=== PATIENT | female | born 1955 | race Caucasian/White ===

== ENCOUNTER 2017-11-01 14:17 | Emergency (ER) | payer OTHER, SELFPAY ==
--- NOTE | 2017-11-01 14:17 | DT_ITS ---
This patient was seen during an EMR downtime October 28, 2017 - November 04, 2017. This patient may have a combination of paper and electronic documentation or all paper documentation. All documentation is viewable within the e-chart portion of [facility] for each patient visit.
== END 2017-11-01 14:26 | disposition home or self-care (01) ==
LOC: ED 18:19
PROVIDERS: Emergency Provider Emergency Medicine; Family Provider Internal Medicine; PCP Internal Medicine
DX: S91.331A Puncture wound without foreign body, right foot, initial encounter (principal); W22.8XXA Striking against or struck by other objects, initial encounter; Y93.9 Activity, unspecified; Y92.9 Unspecified place or not applicable; E11.9 Type 2 diabetes mellitus without complications; E78.00 Pure hypercholesterolemia, unspecified
CPT/HCPCS: 90471; 90715; 99284

== ENCOUNTER 2020-07-07 08:16 | Day surgery (SDC) | payer MEDICARE, SELFPAY ==
--- NOTE | 2020-07-01 11:17 | EKG12_ITS ---
Test Reason : PREOP Blood Pressure : / mmHG Vent. Rate : 070 BPM Atrial Rate : 070 BPM P-R Int : 186 ms QRS Dur : 084 ms QT Int : 394 ms P-R-T Axes : 049 025 052 degrees QTc Int : 425 ms Normal sinus rhythm Normal ECG Confirmed by JIM JIMENEZ, RAMANDEEP ([id number]), sound editor MAURICIO SANTIAGO ([id number]) on 07/04/2020 1:22:33 PM Referred By: Natalia Sarabia Confirmed By:RAMANDEEP FERNANDEZ MD
[2020-07-01 12:42] LABS: Hematocrit 37.7 % (37-47); Hemoglobin 12.7 g/dL (12.0-15.0); Mean Corp Hgb Conc 33.7 g/dL (32-36); Mean Corpuscular Hgb 31.2 pg (27.0-32.0); Mean Corpuscular Volume 92.6 fL (81-99); Platelet Count 208 K/mm3 (150-450); RBC Distribution Width CV 12.4 % (11.6-14.6); RBC Distribution Width SD 42.2 fl (35.1-43.9); Red Blood Count 4.07 M/mm3 (4.2-5.4); White Blood Count 6.2 K/mm3 (4.4-11.0)
[2020-07-01 13:15] LABS: Anion Gap 7 (5-15); BUN 16 mg/dL (7-18); BUN/Creat Ratio 20.6 RATIO (10-20); Calcium,Total 9.9 mg/dL (8.5-10.1); Chloride 108 mmol/L (98-107); Creatinine, Serum 0.78 mg/dL (0.55-1.02); EST Glomerular Filtration Rate 79 mL/min (>60); Est Glom Filt Rate - Afr Amer 95 mL/min (>60); Glucose 140 mg/dL (74-106); Magnesium 1.9 mg/dL (1.6-2.6); Potassium 3.7 mmol/L (3.5-5.1); Sodium Level 141 mmol/L (136-145)
[2020-07-01 15:06] LABS: Hemoglobin A1c 8.2 % (3.8-5.6)
--- NOTE | 2020-07-04 17:36 | PCM.HP.BLA ---
History and Physical Date of Admission: 07/07/20 Expand AllCollapse All Expand widget buttonCollapse widget button Hide copied text Hover for detailscustomization button Pre-Op History and Physical HPI: The patient is a 64 year old female presenting for discussion regarding persistent cervical dysplasia. Patient would like to proceed with definitive treatment. She is scheduled for LAVH and BSO, cyst, for Persistent cervical dysplasia on 07/07/20. Procedure discussed along with risks, benefits and complications. Other alternatives discussed for management. Consent form signed? Yes. PAST MEDICAL HISTORYExpand by Default PAST MEDICAL HISTORY Diagnosis Date ? Anxiety ? Anxiety and depression ? Back pain ? CVA (cerebral vascular accident) (HCC) 2009 ? Diabetes mellitus type II 08/03/2011 ? Fracture of metatarsal right foot ? Hyperlipidemia ? Obstructive sleep apnea CPAP machine ? 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 Unspecified essential hypertension PAST SURGICAL HISTORY PAST SURGICAL HISTORY Procedure Laterality Date ? COLONOSCOP W/ OR W/O BRSH SPEC 12/26/2005 Colonoscopy ? CORRECT BUNION,SIMPLE Bilateral 88 Bunion ? PAST SURGICAL HISTORY OF 02/27/08 repair 1 ruptured disc, lumbar ? PAST SURGICAL HISTORY OF 77 Varicose veins ? PAST SURGICAL HISTORY OF 2011 Aortic Valve mass resection ? 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 REMOVAL OF TONSILS,<12 Y/O Tonsillectomy ? REPAIR METATARSAL FRACTURE 01/20/2016 ? TREAT ECTOPIC PREG,NON REMVAL Ectopic x2 CURRENT MEDICATIONS Current Outpatient Medications Medication Sig Dispense Refill ? buPROPion (WELLBUTRIN) 75 mg tablet Take 1 tablet by mouth twice daily. 180 tablet 1 ? losartan-hydroCHLOROthiazide (HYZAAR) 100-25 mg per tablet Take 1 tablet by mouth once daily. 30 tablet 5 ? dulaglutide (TRULICITY) 1.5 mg/0.5 mL pen injector Inject 1.5 mg subcutaneously one time a week. 4 Each 5 ? potassium chloride ER (K-DUR, KLOR-CON) 20 mEq tablet Take 1 tablet by mouth once daily. (Patient taking differently: Take 20 mEq by mouth every other day. Saturday and Saturday ) 90 tablet 1 ? traZODone (DESYREL) 50 mg tablet Take 1 tablet by mouth daily at bedtime. 90 tablet 1 ? metFORMIN ER (GLUCOPHAGE XR) 500 mg 24 hr tablet Take 2 tablets twice a day before meals. 360 tablet 3 ? LORazepam (ATIVAN) 0.5 mg Take 0.5 mg by mouth as needed. ? calcium carbonate (OS-CHERY 500) 500 mg calcium (1,250 mg) tablet Take 600 mg by mouth once daily. ? lancets (FREESTYLE LANCETS) 28 gauge Test blood sugar(s) 1x daily. Dx: E11.9. Insulin: No 200 Each 3 ? sertraline (ZOLOFT) 100 mg tablet Take 1 tablet by mouth once daily. 90 tablet 3 ? rosuvastatin (CRESTOR) 10 mg tablet Take 1 tablet by mouth once daily. 90 tablet 3 ? Triamcinolone Acetonide 0.05 % oint Apply 1 application to affected area twice daily as needed. 15 g 0 ? blood sugar diagnostic (FREESTYLE LITE STRIPS) test strip Test blood sugar(s) 1x daily. Dx: E11.9. Insulin: No 50 Strip 3 ? ibuprofen (ADVIL ORAL) Take by mouth as needed. ? triamcinolone (KENALOG) 0.025 % cream Apply 1 application to affected area twice daily. 15 g 1 ? Cholecalciferol, Vitamin D3, 2,000 unit cap Take 2,000 Units by mouth once daily. ? aspirin, enteric coated (ASPIR-LOW) 81 mg EC tablet Take 1 tablet by mouth once daily. ? Ciclopirox (LOPROX) 1 % sham Use as directed to cleanse scalp qoday (every other day) for 2-4 weeks and then can taper to qwk to bid (once to twice per week) as able and tolerated. 120 mL 6 ? Clobetasol Propionate (CLOBEX) 0.05 % sham Shampoo scalp as directed (15 minute lather and soak-in advised) emphasizing the areas of most active itching dermatitis twice to three times per week as tolerated. AVOID eyes and eyelids and face as much as possible. 118 mL 6 ? Clobetasol Propionate (TEMOVATE) 0.05 % external solution Apply to scalp psoriasis selectively (several drops per quadrant area) twice per day x 2-4 weeks until clear and then can stop or taper as able. AVOID face, eyes/eyelids, and deep fold areas. 60 mL 6 ? CPAP Initiate AutoPAP @ 9/20 cm of water with humidification. Mask (per patient preference) optional chin strap (if indicated), filters, tubing / heated tubing, heated humidity and lifetime supplies. Dx. LUKAS G47.33 327.23 1 Device 0 ? Clobetasol Propionate (OLUX) 0.05 % topical foam Apply selectively to affected areas of active psoriasis selectively on scalp once to twice per day (qday to bid) as directed and tolerated as needed until clear, but AVOID face, eyes/eyelids, and deep fold areas (groin, axillae, etc.). 100 g 6 ? ibuprofen (MOTRIN) 600 mg tablet Take 1 tablet by mouth every 6 hours as needed. 30 tablet 1 ? oxyCODONE-acetaminophen (PERCOCET) 5-325 mg tablet Take 1 tablet by mouth four times daily as needed for up to 3 days. FOR PAIN. 10 tablet 0 ? docusate sodium (COLACE) 100 mg capsule Take 1 capsule by mouth twice daily. 60 capsule 2 ? simethicone, chewable (MYLICON) 80 mg chewable tablet Take 1 tablet by mouth every 6 hours as needed. 30 tablet 0 ? zoster vaccine, recombinant, adjuvanted, (SHINGRIX, PF,) 50 mcg/0.5 mL injection Inject 0.5 mL intramuscularly now and repeat 2nd dose in 2-6 months 1 Each 1 Current Facility-Administered Medications Medication Dose Route Frequency Provider Last Rate Last Admin ? perflutren lipid microspheres 1.3 mL in NaCl (PF) 0.9% 10 mL injection (DEFINITY) INTRAVENOUS DIRECTED PRN Jw Degroot ? sodium chloride 0.9 % (flush) 10 mL (BD POSIFLUSH) 10 mL INTRAVENOUS DIRECTED PRN Jw Milesmilarasan ALLERGIES: Aleve [Naproxen Sodium], Latex, Lipitor [Atorvastatin Calcium], and Zocor [Simvastatin] PERSONAL HISTORY: SOCIAL HISTORY FAMILY HISTORY: FAMILY HISTORY FAMILY HISTORY Problem Relation Age of Onset ? Coronary Artery Disease Father [place], age 40 ? Cancer Mother Multiple Myeloma age 55 ? Stroke Maternal Grandmother ? Diabetes Maternal Grandmother REVIEW OF SYMPTOMS: negative except as noted above PHYSICAL EXAMINATION: VITALS: Blood pressure 138/82, height 5' 4 (1.626 m), weight 226 lb (102.5 kg), last menstrual period 07/10/2008. GENERAL: The patient is well nourished, well hydrated in no acute distress. , The patient is oriented to time, place, and person. NECK: full range of motion GENITALIA: WNL Neuro: A&O x 3 IMPRESSION: 64yo with Persistent cervical dysplasia PLAN: LAVH, BSO, Cysto (possible TLH reviewed with pateint) Pt has been counseled on risks/benefits and alternatives of surgery including but not limited to anesthesia, bleeding, infection, injury to pelvic structures including bowel, bladder, ureters and vessels. Pt wishes to proceed with surgery at this time. Reviewed ERAS- did not give CHO loading drink due to DM. Will not give Steroids either. Discussed discharge same day if doing well and no complications. POST OP MEDS given- sent to [facility] in [place] I have reviewed and updated past medical and surgical history, medications and allergies Natalia Leal MD
[2020-07-07] VITALS (9 sets, daily range): BP systolic 120–140; BP diastolic 78–80; PULSE 68–72; RESP 16; TEMP 36.2–36.8; O2SAT 97–100; BMI 38.8
[2020-07-07] MEDS: Lactated Ringers 1,000 ML 70 ML IV (07:00)
[2020-07-07] MEDS: Celecoxib 200 MG Capsule 400 MG PO (08:43)
[2020-07-07] MEDS: Gabapentin 600 MG Tablet PO (08:48)
[2020-07-07] MEDS: Phenazopyridine 95 MG Tablet 190 MG PO (08:48)
[2020-07-07] MEDS: Acetaminophen 500 MG Tablet 1000 MG PO (08:48)
[2020-07-07] MEDS: Enoxaparin 40 MG/0.4 ML Syringe SC (08:49)
[2020-07-07] MEDS: Lactated Ringers 1,000 ML 40 ML IV (08:50)
[2020-07-07 09:45] LABS: Bedside Glucose 147 mg/dL (70-110)
[2020-07-07] MEDS: Cefazolin 2 GM in 0.9% Normal Saline 100 ML IV (10:02)
--- NOTE | 2020-07-07 10:14 | PCM.DC.AHY ---
Discharge Diet: No Restrictions Discharge Activity: Return to Normal Activity, May Not Drive - while taking narcotic pain medications., May Shower May shower in (days): 1 May resume sexual activity in: 6-8 weeks Lifting Restrictions: 20 Call your doctor if your incision/area has: Continuous Slow Oozing, Sudden Increased Bleeding, Increased Pain/ Swelling, Increased Redness, Foul Smelling Discharge Call your doctor if you observe: Fever of 101 or Higher, Inability to urinate, Inability to have a bowel movement, Using more than one pad per hour Cleanse incision/area with: - - you have skin glue over incisions, let soap and water run over and dab dry. do not pick off glue Allergies/Adverse Reactions: Allergies latex Allergy (Verified 07/01/20 09:26) Rash naproxen Allergy (Verified 07/01/20 09:26) Rash Itnbhni-Xwm-Fts Reductase Inhibitor Allergy (Verified 07/01/20 09:) MUSCLE ACHES Medications to take at Discharge Metformin HCl [Metformin HCl ER] 1,000 mg PO BID 10/03/15 Potassium Chloride [K-Dur] 20 meq PO MOWEFR 10/03/15 RX: traZODone [Desyrel] 50 mg PO QHS 10/03/15 Rosuvastatin Calcium [Crestor] 10 mg PO QHS 10/03/15 Sertraline HCl [Zoloft] 100 mg PO DAILY 10/03/15 buPROPion XL [Wellbutrin Xl] 75 mg PO BID 10/03/15 Lorazepam [Ativan] 0.5 mg PO DAILY PRN PRN 01/17/16 Aspirin [Aspir-Low] 81 mg PO DAILY 11/26/16 Calcium Carbonate [Calcium] 500 mg PO DAILY 11/26/16 Dulaglutide [Trulicity] 1.5 mg SQ QWEEK 07/01/20 Losartan/Hydrochlorothiazide [Losartan-Hctz 100-25 mg Tab] 1 ea PO DAILY 07/01/20 Orders to be completed after discharge: Type & Screen - PAT ONLY Time Frame: 07/07/20, Facility: [facility], Location: Laboratory Primary Care Physician: Flaquita Fink MD [Primary Care Provider] - Test Results: Test results from this visit will be discussed in further detail at your follow-up appointment, if applicable. Please Follow Up With: NeyNatalia Ng MD - 2 weeks
[2020-07-07] MEDS: Lubricating Jelly 60 GM Tube 30 GM TOPICAL (10:26)
--- NOTE | 2020-07-07 11:19 | PCM.OPRPT ---
Report of Operation Date of Procedure: 07/07/20 - start time: 10:26 end time 11:29 Pre-Operative Diagnosis: persistent cervical dysplasia Post-Operative Diagnosis: persistent cervical dysplasia, Pelvic adhesions Description of Surgical Findings:: Significant omental adhesions to anterior abdominal wall and pelvic adhesions to sidewalls. General Surgery Dr. Gomez in for Lysis of adhesions. POOR visualization- decision to abort procedure and send to [facility] for further surgery. recording clerk: Liliam Craft Type of Anesthesia:: General Special Medications: 0.5%marcaine Specimen's removed: none Drains: none Estimated Blood Loss (mL): 25 Fluids Replaced: 1200 Description of Procedure: After informed consent was obtained patient was taken to the operating room she was placed in supine position she was given anesthesia. She was then placed in the [facility] stirrups and she was prepped and draped in normal sterile fashion. foster placed and Bladder was drained prior to the start of procedure. At this time attention was turned to the vaginal portion where weighted speculum placed at posterior fornix vagina. cervix flush with vagina- Keturah clamp used to clamp cervix for uterine manipulation. NOt able to penetrate through cervical OS. Legs then placed in parallel with the abdomen the tenaculum and the weighted speculum were removed. 2 towel clamps were placed at level of umbilicus. Marcaine was injected intraumbilical and a small incision was made. The 5 mm trocar was placed under direct visualization. CO2 gas was used to insufflate the intra-abdominal cavity. At this time then the LLQ and RLQ ports were placed First Marcaine was injected and small incision was made a knife and the 5 mm trocars were placed. Upon inspection significant omental adhesions to anterior abdominal wall- these were taken down, General surgery was then called due to adhesions that were located in pelvis extending to omentum - see GEN SURGERY note for details. once adhesions were taken down then redundant tissue was present and with large amount of omentum with redundant peritoneal tissue and preperitoneal fat. we were unable to manipulate uterus and the ovaries were not visualized as they encased in pelvic side wall adhesions. attempt at using laparoscopic tenaculum to manipulate uterus but were still had poor visualization. Decision at that time was to abort procedure and send to [facility] for surgery. I discussed findings with the intraop and he understood and agrees to send her to [facility] for surgery. The trochars were removed. Skin was closed using 4-0 Monocryl in a subcutaneous fashion. Dermabond glue was placed. Instrument lap and needle counts were correct ?2. The keturah tenaculum removed- Foster removed. Vaginal sweep was performed it was negative. There were no complications anticipated normal postoperative course for this patient. Grafts/Implants Used: none - Complications none - Admit VTE Documentation VTE Present on Admission: Yes VTE Mechan Device Prophylaxis: SCD's VTE Pharm Prophylaxis ordered?: Yes
[2020-07-07] MEDS: Bupivacaine Mpf 0.5% 30 ML VIAL (11:23)
--- NOTE | 2020-07-12 12:58 | PCM.OPRPT ---
Problem List (1) Abdominal adhesions Status: Acute Report of Operation Date of Procedure: 07/12/20 Pre-Operative Diagnosis: Abdominal adhesions Post-Operative Diagnosis: Same Surgery/Procedure Performed:: Adhesiolysis Description of Procedure: I was called in mid operation during a hysterectomy for adhesions to the abdominal wall. It appeared the omentum had formed adhesions to the anterior abdominal wall and the primary surgeons had taken down the anterior abdominal wall to the preperitoneal space. I found the area that was thinnest where the omentum was adhered to the anterior abdominal wall peritoneum and I lysed this adhesion sharply. This allowed for visualization of the uterus and I ended my portion of the operation.
== END 2020-07-07 15:27 | disposition home or self-care (01) ==
LOC: SDC 08:17 → AC 08:17
PROVIDERS: Anesthesiology; PCP Internal Medicine; Referring Provider Obstetrics & Gynecology; Visit Provider Obstetrics & Gynecology
PROC: 0UT9FZZ Resection of Uterus, Via Natural or Artificial Opening With Percutaneous Endoscopic Assistance (ICD-10-PCS; CPT 58660; principal; 2020-07-07 09:35)
DX: N87.9 Dysplasia of cervix uteri, unspecified (principal); N73.6 Female pelvic peritoneal adhesions (postinfective); Z53.8 Procedure and treatment not carried out for other reasons; Z20.822 Contact with and (suspected) exposure to COVID-19; E11.9 Type 2 diabetes mellitus without complications; I10 Essential (primary) hypertension; E78.5 Hyperlipidemia, unspecified; L40.9 Psoriasis, unspecified; G47.33 Obstructive sleep apnea (adult) (pediatric); F32.9 Major depressive disorder, single episode, unspecified; F41.9 Anxiety disorder, unspecified; Z79.84 Long term (current) use of oral hypoglycemic drugs; Z79.52 Long term (current) use of systemic steroids; Z79.899 Other long term (current) drug therapy; Z78.0 Asymptomatic menopausal state; Z86.73 Personal history of transient ischemic attack (TIA), and cerebral infarction without residual deficits
CPT/HCPCS: 49329; 58660; 36415; 80048; 82962; 83036; 83735; 85027; 86850; 86900; 86901; 87426; 93005; C9803; J7120; J2405

== ENCOUNTER 2021-07-20 12:30 | Outpatient (RCR) | payer MEDICARE, SELFPAY ==
--- NOTE | 2021-06-20 11:07 | HP.PTEVAL_ITS ---
Patient's Visit Information HARSHAL AKERS is a 65 year old F referred to Physical Therapy by Dr. Catrachito Osullivan MD with a diagnosis of LUMBAR SPINAL STENOSIS. Date of Evaluation: 06/20/21 Physical Therapist: Lima Perez PT, Cert MDT - Visit Plan Frequency: 2-3x /Week Duration: 4-6 Weeks Plan: POSTURE CORRECTION/STRENGTHENING, INSTRUCTION IN APPROPRIATE BODY MECHANICS AND ACTIVITY MODIFICATIONS. DLS STARTING WITH A NEUTRAL SPINE PROGRESSING ROM TOLERATED. OBDULIA LE ROM, STRETCHING AND STRENGTHENING. HEP INSTRUCTION. CONSIDER AQUATIC THERAPY. 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 Disability: NO. Present symptoms: LOW BACK PAIN RIGHT > LEFT. RIGHT THIGH, LEG AND FOOT PAIN, NUMBNESS AND TINGLING. LEFT THIGH PAIN AND NUMBNESS. Present since: MANY MANY YEARS AGO. Pain Scale: WORST 8/10, LEAST 0/10. Currently: 5/10. 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 Symptoms at onset: LOW BACK PAIN. Worse: STANDING, BENDING OVER, LIFTING THINGS UP, AT NIGHT WHEN IN BED SLEEPING - WAKES ME UP MULTIPLE TIMES A NIGHT, WALKING, CARRYING THINGS UP THE STEPS. SOMETIMES RANDOM PAIN FOR NO APPARENT REASON. Better: SITTING, ADVIL REGULARLY. Disturbed sleep: YES. Previous history/Previous treatment: PAIN MGMT X 20+ YEARS. LUMBAR DISCECTOMY BY DR. CORTEZ WHEN SHE WAS IN HER 30'S. MULTIPLE MIGUEL'S. PHYSICAL THERAPY ON AND OFF BUT IT HAS BEEN A LONG TIME SINCE HAVING PT. WHEN IN 40'S TRIED CHIROPRACTIC BUT DIDN'T HELP SO ENDED UP WITH MIGUEL'S. HAS A HOME TENS UNIT AND IT HELPS AT TIMES. Treatment this episode: PATIENT REPORTS THE LAST LUMBAR MIGUEL FEB 2021 DID NOT HELP AT ALL. Coughing/sneezing/straining: POSITIVE. Gait: TIME AND DISTANCE LIMITED DUE TO PAIN. SOMETIMES FAVORS ONE SIDE OVER THE OTHER AND SOMETIMES I WALK BENT OVER. Difficulty initiating urination: NO. PATIENT DENIES BOWEL AND BLADDER DYSFUNCTION. Accidents: NO. Unexplained weight loss: NO. Imaging: NONE RECENT. PMH/Recent major surgery: NIDDM, HTN, HIGH CHOLESTEROL, ANXIETY. BRAIN TUMORS THAT ARE BENIGN FAR KNOWN - BEING MONITORED. CVA ABOUT 11 YEARS AGO. - Objective Sitting/Standing Posture: POOR. Lordosis: NORMAL. Lateral shift: NO. Relevant shift: N/A. Active Correction of posture: NE. Other Observations: THIS PATIENT AMBULATES INDEP'LY INTO PT WITHOUT ANY ASSISTIVE DEVICES OR LOB BUT WITH DECREASED CADANCE AND INCREASED TRUNK FLEXION. PATIENT IS ABLE TO INDEP'LY TRANSFER FROM SIT TO STAND WITHOUT UE ASSIST. Motor deficit: OBDULIA LE'S 5/5 WITH MMT'ING EXCEPT HIPS 4/5. Sensory deficit: OBDULIA LE LIGHT TOUCH SENSATION GROSSLY INTACT AND SYMMETRICAL. ROM deficit: MILD OBDULIA LE HIP FLEXOR, HS AND GASTROC SOLEUS COMPLEX TIGHTNESS. Reflexes: 2/3 OBDULIA LE'S. Dural Signs: NEGATIVE OBDULIA LE'S. Lumbar mvmt loss: flex -MIN. ext - MOD. R SG - MOD. L SG - MIN. PATIENT C/O INCRASED LBP WITH LUMBAR FLEXION AND RIGHT SG ROM TESTING. Core st rength: POOR. Palpation: NO ACUTE LUMBAR, SACRAL OR HIP TENDERNESS. TREATMENT: NEUROMUSCULAR REEDUCATION - RETRAINING OF MVMT AND POSTURE FOR SITTING, LYING AND STANDING ACTIVITIES. - Balance/Special Test Scores Oswestry Low Back Score: 17 - Goals Goal 1:: DECREASE C/O LOW BACK AND OBDULIA LE SXS'. Goal Time Frame: 4-6 Weeks Goal 2:: IMPROVE LIFTING, WALKING, STANDING, SLEEP, SOCIAL LIFE, TRAVEL AND HOMEMAKING FUNCTION. Goal Time Frame: 4-6 Weeks Goal 3:: INSTRUCT IN PROPHYLAXIS Goal Time Frame: 4-6 Weeks - Anticipated Interventions Patient/Client Instruction: Educate patient on: Condition, Plan of Care, Risk Factors For the Purpose of:: To improve self management Therapeutic Exercise to Include: Strength training, Body mechanics, Postural training, Flexibilty training, Neuromotor development, In an aquatic setting, Dynamic Lumbar Stabilization For the Purpose of:: To decrease pain, To improve nutrient delivery to tissue, To improve muscle performance and motor function, To increase tolerance to activity/condition/position, To improve ability of physical actions for home/community/work/leisure Thank you for the opportunity to evaluate your patient. For Medicare and Medicare HMO plans, please review the plan of care and approve it. It will need to be FAXED BACK to us at [phone] for Medicare purposes. For Medicare only, by signing this I certify the plan of care. Please let me know if there are questions or concerns regarding this plan of care. Physician Signature: Date:
--- NOTE | 2021-07-20 13:58 | HP.PTDCSUM ---
It has been my pleasure to treat HARSHAL AKERS referred by Dr. Catrachito Osullivan MD, with the diagnosis of LUMBAR SPINAL STENOSIS for a total of 11 visit(s). Discharge Date: Please see the following information for a summary of their discharge status. Subjective: PATIENT REPORTS SHE DID REALLY WELL AFTER LAST VISIT. STATES SHE FEELS READY TO CONTINUE ON HER OWN. LOW BACK Pain Intensity (Out of 10): 3 RIGHT THIGH Pain Intensity (Out of 10): 0 % Improvement: 60 Objective/Function: PATIENT WAS SEEN TODAY FOR RE-ASSESSMENT OF PROGRESS TOWARD THE SET PT GOALS AND THE NEED FOR FURTHER PHYSICAL THERAPY VS READINESS FOR DISCHARGE. UPON EXAM TODAY: ALL PT GOALS HAVE BEEN MET. PATIENT IS WALKING WITH IMPROVED CADANCE AND POSTURE. SHE IS REPORTING LESS PAIN OVER-ALL AND IS INDEP WITH BOTH GYM AND HOME EX PROGRAMS. LUMBAR MVMT LOSS: Lumbar mvmt loss: flex -MIN. ext - MOD. R SG - MOD. L SG - MIN. PATIENT ALSO COMMUNICATES A GOOD UNDERSTANDING OF APPROPRIATE EX PROGRESSION. Goal 1:: DECREASE C/O LOW BACK AND OBDULIA LE SXS'. Goal 2:: IMPROVE LIFTING, WALKING, STANDING, SLEEP, SOCIAL LIFE, TRAVEL AND HOMEMAKING FUNCTION. Goal 3:: INSTRUCT IN PROPHYLAXIS Plan: D/C TO INDEP EX. If there are questions or concerns regarding this patient's physical therapy, please feel free to call me at [phone]. Thank you for the referral of this patient. Sincerely, Lima Perez, PT, Cert MDT Balance/Gait/Functional tests - Balance/Special Test Scores Oswestry Low Back Score: 12
== END 2021-07-20 19:00 | disposition home or self-care (01) ==
LOC: PT 12:30
PROVIDERS: PCP Internal Medicine; Referring Provider Anesthesiology Pain Medicine; Visit Provider Anesthesiology Pain Medicine
DX: M48.061 Spinal stenosis, lumbar region without neurogenic claudication (principal)
CPT/HCPCS: 97110; 97112; 97162; 97164; 97530

== ENCOUNTER 2022-07-01 20:18 | Emergency (ER) | payer MEDICARE, SELFPAY ==
[2022-07-01] VITALS (10 sets, daily range): BP systolic 147–199; BP diastolic 77–120; PULSE 70–95; RESP 13–23; TEMP 36.6; O2SAT 92–98; BMI 35.5
--- NOTE | 2022-07-01 20:22 | CT_ITS ---
We are attempting to reach an attending provider to discuss findings. An addendum with communication details will be sent when the communication is complete. STUDY: CT BRAIN WITHOUT CONTRAST REASON FOR EXAM: Female, 66 years old. Neuro deficit, acute, stroke suspected TECHNIQUE: Transaxial CT imaging of the brain was performed without administration of intravenous contrast material. Individualized dose optimization techniques were used for this CT. COMPARISON: None FINDINGS: Normal calvarium. Normal soft tissues. Normal size ventricles and extra-axial spaces for the patient''s age. Normal white matter tracts of the cerebral hemispheres. Normal basal ganglia and thalami. Normal brainstem. Normal cerebellum. There is 63 mm intraparenchymal intracranial hemorrhage. There is overlying Cerebral edema. Hemorrhage extends into the right temporal lobe. Overlying right temporal subarachnoid blood extending to the right parietal lobe. Hemorrhage extends into the lateral and third ventricle. Suspicious hyperdense focus in the left frontal lobe. Series 2 image 27. This may also represent a focus of hemorrhage. 5.4 mm right to left midline shift. Normal visualized paranasal sinuses. CT/STROKE Brain/Head without Cont IMPRESSION: There is 63 mm intraparenchymal intracranial hemorrhage of the right parietal lobe. There is overlying Cerebral edema. Hemorrhage extends into the right temporal lobe. Overlying right temporal subarachnoid blood extending to the right parietal lobe. Hemorrhage extends into the lateral and third ventricle. Suspicious hyperdense focus in the left frontal lobe. Series 2 image 27. This may also represent a focus of hemorrhage. 5.4 mm right to left midline shift. Case discussed with Dr Méndez. Electronically Signed: Fidel Castillo MD at 20:45 EST ,
--- NOTE | 2022-07-01 20:22 | EKG12_ITS ---
Test Reason : STROKE Blood Pressure : / mmHG Vent. Rate : 071 BPM Atrial Rate : 071 BPM P-R Int : 176 ms QRS Dur : 098 ms QT Int : 402 ms P-R-T Axes : 067 010 076 degrees QTc Int : 436 ms Normal sinus rhythm Cannot rule out Inferior infarct , age undetermined Abnormal ECG Confirmed by CHAR JIMENEZ, SONYA ([id number]), greeting card editor MAURICIO SANTIAGO ([id number]) on 07/02/2022 1:10:42 PM Referred By: NIKOLE Confirmed By:SONYA PARDO MD
--- NOTE | 2022-07-01 20:24 | ED.RN ---
phone call to [facility] at this time
--- NOTE | 2022-07-01 20:29 | EDS_ITS ---
HPI History of Present Illness Chief Complaint: Stroke Alert Detail of Chief Complaint: Abrupt onset of headache with nausea vomiting and left-sided weakness Informant: patient and EMS Onset/Context/Timing Onset: Hours Context: Sudden Onset Timing: Continuous Quality and Location: Positive for Left Arm Parasthesia, Left Leg Parasthesia, Left Arm Weakness and Left Leg Weakness Current Severity: Severe Maximum Severity: Severe Worsened by: Nothing Relieved by: Nothing Associated Symptoms Associated Symptoms: Positive for Headache, Nausea and Vomiting; Negative for Chest Pain Narrative Narrative: Patient is a 66-year-old [id number] woman with prior history of stroke 10 to 15 years ago. She has history of type 2 diabetes, hypertension and elevated cholesterol. She also has history of depression. Patient arrived by ambulance. She vomited in route. She will open her eyes to command. She has no sensation or motor function of the left side. She does en dorse severe headache. She denies neck stiffness or pain. She denies double vision, blurred vision loss of vision she denies cardiac respiratory symptoms. Prior similar symptoms: No Recent Illness/Hospitalization: No [facility] Medical History (Updated 07/01/22 @ 21:[address] Orlando Méndez MD) Anxiety Diabetes Stroke/cerebrovascular accident Medical History no medical history no medical history (Documented in the HPI) Home Medications bupropion HCl 150 mg 24 hr tablet, extended release 75 mg PO BID 10/03/15 [History Last Taken Unknown] metformin 500 mg 24 hr tablet,extended release 1,000 mg PO BID 10/03/15 [History Last Taken Unknown] potassium chloride 20 mEq tablet,extended release(part/cryst) (Klor-Con M) 20 meq PO MOWEFR 10/03/15 [History Last Taken Unknown] rosuvastatin 20 mg tablet (Crestor) 10 mg PO QHS 10/03/15 [History Last Taken Unknown] sertraline 50 mg tablet 100 mg PO DAILY 10/03/15 [History Last Taken Unknown] trazodone 50 mg tablet 50 mg PO QHS 10/03/15 [History Last Taken Unknown] lorazepam 0.5 mg tablet 0.5 mg PO DAILY PRN PRN Anxiety 01/17/16 [History Last Taken Unknown] aspirin 81 mg tablet,delayed release (Aspir-Low) 81 mg PO DAILY 11/26/16 [History Last Taken Unknown] calcium carbonate 500 mg calcium (1,250 mg) tablet 500 mg PO DAILY 11/26/16 [History Last Taken Unknown] dulaglutide 1.5 mg/0.5 mL subcutaneous pen injector 1.5 mg SQ QWEEK 07/01/20 [History Last Taken Unknown] losartan 100 mg-hydrochlorothiazide 25 mg tablet 1 ea PO DAILY 07/01/20 [History Last Taken Unknown] Allergy/AdvReac Type Severity Reaction Status Date / Time latex Allergy Rash Verified 07/01/22 20:45 naproxen Allergy Rash Verified 07/01/22 20:45 Lfsccee-SYI-LbR Reductase Allergy MUSCLE Verified 07/01/22 20:45 Inhibitor ACHES [Wbmyysd-Xwh-Zgk Reductase Inhibitor] Surgical History (Updated 07/01/22 @ 20:46 by Chris Whitfield) History of open heart surgery Social History Smoking Status: Never smoker ROS ROS ED Constitutional Constitutional ED: Denies chills or fever(s) Eyes Eyes: Denies blurry vision, change in vision or diplopia ENT ENT ED: Denies ear pain or sore throat Cardiovascular Cardiovascular: Denies chest pain or palpitations Respiratory/Chest Respiratory/Chest: Denies cough, dyspnea or dyspnea on exertion Gastrointestinal Gastrointestinal: Reports nausea and vomiting; Denies abdominal pain Genitourinary Genitourinary ED: Denies dysuria, hematuria or urinary frequency Musculoskeletal Musculoskeletal: Denies arthralgias, back pain or neck pain Integumentary Denies abscess, Abrasions or rash Neurologic Neurologic: Reports headache(s), paresthesias and weakness Hematologic/Lymphatic Hematologic/Lymphatic: Reports other Details: Patient is now on no anticoagulant. She is on a baby aspirin a day. ; Denies easy bleeding or easy bruising EXAM Physical Exam Const Vital Signs: 07/01/22 20:34 07/01/22 20:35 07/01/22 20:39 Temperature 97.8 F Temperature Source Temporal Pulse Rate 70 74 Respiratory Rate 23 H 22 H Blood Pressure 192/101 H 170/89 H Blood Pressure Mean 131 116 Blood Pressure Source Monitor Blood Pressure Position Semi-Fowlers Blood Pressure Location Left Arm Pulse Ox 94 94 93 Oxygen Delivery Method Room Air Room Air Nasal Cannula Oxygen Flow Rate (L/min) 07/01/22 20:39 07/01/22 20:45 07/01/22 20:51 Temperature 97.8 F Temperature Source Temporal Pulse Rate 76 72 Respiratory Rate 23 H 18 Blood Pressure 170/89 H 199/120 H Blood Pressure Mean 116 146 Blood Pressure Source Blood Pressure Position Blood Pressure Location Pulse Ox 94 92 95 Oxygen Delivery Method Room Air Room Air Room Air Oxygen Flow Rate (L/min) 07/01/22 20:53 07/01/22 20:56 07/01/22 20:59 Temperature 97.8 F Temperature Source Pulse Rate 75 75 78 Respiratory Rate 22 H 22 H 22 H Blood Pressure 147/78 H 150/79 H 150/79 H Blood Pressure Mean 101 102 102 Blood Pressure Source Monitor Blood Pressure Position Semi-Fowlers Blood Pressure Location Left Arm Pulse Ox 95 95 Oxygen Delivery Method Nasal Cannula Nasal Cannula Oxygen Flow Rate (L/min) 4 4 07/01/22 21:07 Temperature Temperature Source Pulse Rate 95 Respiratory Rate 15 Blood Pressure 155/77 H Blood Pressure Mean 103 Blood Pressure Source Blood Pressure Position Blood Pressure Location Pulse Ox 96 Oxygen Delivery Method Ambu-Bag Oxygen Flow Rate (L/min) 15 Positive well nourished, well developed and obese Constitutional Narrative: Patient's not awake. She will answer questions. She does follow simple command General Appearance ED: well developed; Negative for NAD Nutritional Appearance: obese HEENT Reports moist mucous membranes atraumatic Nose: other Other Details: Normal Eyes PERRL and EOMs intact bilaterally General Eye ED: Negative for pale conjunctiva or scleral icterus Neck no lymphadenopathy, supple and no JVD Chest Wall inspection of chest normal and palpation of chest normal Resp normal respiratory effort and clear to auscultation bilaterally Cardio no murmurs Rate: regular rate Rhythm: regular rhythm Heart Sounds: S1 normal and S2 normal GI normal to inspection, nondistended, normoactive bowel sounds, soft to palpation, non-tender, non-distended and no masses Back/Spine no CVA tenderness Cervical Spine: Negative for cervical spine tenderness Thoracic Spine / Upper Back: Negative for thoracic spinal tenderness Lumbar Spine / Lower Back: Negative for lumbar spinal tenderness Extremity normal to inspection Extremity Narrative: There is no sensation left upper or left lower extremity and no motor function left upper or left lower extremity. General Extremety ED: Negative for deformity or edema General Extremity: Negative for deformity or edema Neuro No oriented x3 and No no sensory deficits noted Luann Coma Scale: document GCS findings To Voice Obeys Commands Oriented 14 Sensorium / Orientation: Negative for alert Motor Exam: Negative for strength 5/5 throughout Skin no wounds General Skin Exam: Negative for jaundice Lesions: no lesions Rashes: no rashes NIHSS NIHSS Initial: 1a Level of Consciousness: 1 1b LOC Questions (Score 2 if aphasic/stupor): 0 1c LOC Commands (Only score 1st attempt): 0 2 Best Gaze (If aphasic, use reflexive mvmts.): 0 3 Visual: 0 5 Motor Arm Right (UN = amputation/fusion): 0 5 Motor Arm Left: 4 6 Motor Leg Right: 0 6 Motor Leg Left: 4 7 Limb ataxia (Only + if out of proportion): 0 8 Sensory (Aphasia/stupor=0 or 1, coma=2): 1 9 Best Language: 0 10 Dysarthria (mute, coma=2, intubated=UN): 0 11 Extinction and Inattention (only scored if +): 1 Total Score: 11 MDM MDM MDM Narrative Medical decision making narrative: With abrupt onset headache nausea vomiting and neurologic deficit concern for spontaneous subarachnoid hemorrhage versus intraparenchymal bleed. Stroke order set was initiated. Hemorrhagic order set was initiated. Spoke with the neurosurgeon at [facility] who has accepted patient. He is contacting transfer line to help study transfer. We are contacting [facility] to see if they are available. Since patient's blood pressure elevated will initiate a Cardene drip. Goal is systolic of 140. Patient's level of awareness is depressed. She preferentially looks to the right. She will look over to left but eyes moved back to center. She has loss of vision on the left. With progression of her symptoms and concern for deterioration during transport patient was electively semiemergently orotracheal intubated. She received 20 mg of etomidate. 62 mg of rocuronium. Patient was preoxygenated with oxygen by nonrebreather mask. Patient was easily orotracheally abated first pass using glide scope. 7.5 Bulgarian endotracheal tube was placed without difficulty. OG was placed per nursing staff. Foy per nursing staff. With deterioration of patient's condition and midline shift patient received 1 g/kg of mannitol. Lab Data Attestation: I reviewed the patient's lab results. Lab results narrative: CBC is unremarkable. Coags unremarkable. Basic metabolic panel is unremarkable. Labs: Laboratory Results - last 24 hr 07/01/22 07/01/22 07/01/22 20:31 20:31 20:31 WBC 7.3 RBC 4.39 Hgb 13.6 Hct 40.1 MCV 91.3 MCH 31.0 MCHC 33.9 RDW Std Deviation 40.8 RDW Coeff of Carmelo 12.2 Plt Count 197 MPV 10.0 Immature Gran % (Auto) 0.100 Neut % (Auto) 35.0 L Lymph % (Auto) 50.6 H [place] % (Auto) 11.0 H Eos % (Auto) 2.5 Baso % (Auto) 0.8 Absolute Neuts (auto) 2.6 Absolute Lymphs (auto) 3.69 Nucleated RBC % 0 PT 14.1 INR 1.1 APTT 33.4 Sodium 139 Potassium 3.6 Chloride 103 Carbon Dioxide 29.0 Anion Gap 7 BUN 14 Creatinine 0.74 Estim Creat Clear Calc 53.09 Est GFR (MDRD) Af Amer 101 Est GFR (MDRD) Non-Af 83 BUN/Creatinine Ratio 19.0 Glucose 251 H Calcium 9.1 Troponin I High Sens 31 Radiography Diagnostic Testing: Clinical Impression(s) from Imaging Studies Brain CT 07/01/22 20:22 IMPRESSION: There is 63 mm intraparenchymal intracranial hemorrhage of the right parietal lobe. There is overlying Cerebral edema. Hemorrhage extends into the right temporal lobe. Overlying right temporal subarachnoid blood extending to the right parietal lobe. Hemorrhage extends into the lateral and third ventricle. Suspicious hyperdense focus in the left frontal lobe. Series 2 image 27. This may also represent a focus of hemorrhage. 5.4 mm right to left midline shift. Case discussed with Dr Méndez. Electronically Signed: Fidel Castillo MD at 20:45 EST , ADDENDUM: 07/01/222053 IMPRESSION: There is 63 mm intraparenchymal intracranial hemorrhage of the right parietal lobe. There is overlying Cerebral edema. Hemorrhage extends into the right temporal lobe. Overlying right temporal subarachnoid blood extending to the right parietal lobe. Hemorrhage extends into the lateral and third ventricle. Suspicious hyperdense focus in the left frontal lobe. Series 2 image 27. This may also represent a focus of hemorrhage. 5.4 mm right to left midline shift. Case discussed with Dr Méndez. JesúsB. : The above Results were Read Back by Fidel Castillo MD to Orlando Méndez MD, and understanding confirmed on 07/01/2022 20:47:07 (ET). Electronically Signed: Fidel Castillo MD at 20:45 EST Reading Location ID and State: [facility] / [place] , Service support , CT reveals a large right parietal hemorrhage with extension into the ventricle and shift. Case was discussed with neurosurgeon at [facility]. Single view portable chest x-ray reveals proper position of the endotracheal tube. The intricately was 2-1/2 to 3 cm above the jesusita. Orogastric tube is in proper position. Rhythm Strip Rhythm Strip: Sinus Rhythm Rate: 72 Ectopy: None EKG Initial EKG: Attestation: I personally reviewed and interpreted this EKG as follows: Interpretation: Sinus Rhythm (Ventricular rate is 71. FL interval 276 ms per cures duration 98 ms. QT duration 402 ms. [place] is normal. Computer is reading cannot rule out inferior infarct. I am in disagreement. The EKG is normal.) Procedures Intubations Intubation Method: orotracheal Intubation Verification: Positive color change and Bilateral breath sounds confirmed Intubation Complications: no complications Critical Care Time Critical Care Time: Yes Critical care time (excluding procedures): 30-74 minutes (32), Including time spent: (History, physical, documentation, initiation of therapy after reading the CAT scan), Discussing w/Patient &/or Family/Netbackup Engineer, Discussing w/Consultants (Spoke with neurosurgeon at [facility], transport team, radiologist), Arranging Admission or Transfer and Performing Direct Patient Care at Bedside Discharge Plan Triage Chief Complaint: Stroke Alert ED Provider: Orlando Méndez Dx/Rx/DC Orders Clinical Impression: Hemorrhagic cerebrovascular accident (CVA), Subarachnoid hemorrhage, History of renal hypertension, Hypercholesterolemia Prescriptions: No Action trazodone 50 MG tablet 50 mg PO QHS potassium chloride [Klor-Con M20] 20 MEQ tablet 20 meq PO MOWEFR sertraline 50 MG tablet 100 mg PO DAILY rosuvastatin [Crestor] 20 MG tablet 10 mg PO QHS bupropion HCl 150 MG Tablet.Xl 75 mg PO BID metformin 500 MG Awlhsss39l 1,000 mg PO BID lorazepam 0.5 MG tablet 0.5 mg PO DAILY PRN PRN (Reason: Anxiety) aspirin [Aspir-Low] 81 MG Tablet.Dr 81 mg PO DAILY calcium carbonate 500 MG tablet 500 mg PO DAILY losartan-hydrochlorothiazide 1 EACH tablet 1 ea PO DAILY dulaglutide 1.5 MG/0.5 ML pen injector 1.5 mg SQ QWEEK Primary Care Provider: Flaquita Fink Referrals: Flaquita Fink MD [Primary Care Provider] - Disposition Disposition: Acute Care Hospital
[2022-07-01 20:39] LABS: Absolute Lymphocyte Count 3.69 X10^3/uL (0.83-4.51); Absolute Neutrophil Count 2.6 X10^3/uL (2.0-7.7); Basophil# 0.06 X10^3/uL; Basophil% 0.8 % (0-1); Eosinophil# 0.18 X10^3/uL; Eosinophils% 2.5 % (0-5); Hematocrit 40.1 % (37-47); Hemoglobin 13.6 g/dL (12.0-15.0); Lymphocyte # 3.69 X10^3/ul (0.83-4.51); Lymphocyte % 50.6 % (19-41); Mean Corp Hgb Conc 33.9 g/dL (32-36); Mean Corpuscular Volume 91.3 fL (81-99); NRBC Flagged by Analyzer 0 % (0-5); Neutrophil # 2.55 X10^3/uL (2.7-7.7); Platelet Count 197 K/mm3 (150-450); RBC Distribution Width CV 12.2 % (11.6-14.6); RBC Distribution Width SD 40.8 fl (35.1-43.9); Red Blood Count 4.39 M/mm3 (4.2-5.4); White Blood Count 7.3 K/mm3 (4.4-11.0)
--- NOTE | 2022-07-01 20:40 | ED.RN ---
PER DR. NIKOLE BARBOZA AT THIS TIME RATHER THEN OTHER TREATMENT
--- NOTE | 2022-07-01 20:44 | ED.RN ---
[facility] CALLED FOR TRANSPORT ACCEPTED ETA 35-45 MIN
[2022-07-01] MEDS: HYDROmorphone 0.5 MG/0.5 ML SYRINGE IV (20:47)
[2022-07-01] MEDS: Ondansetron 4 MG/2 ML Vial IV (20:48)
[2022-07-01 20:56] LABS: International Normalized Ratio 1.1; Prothrombin Time (Protime)PT. 14.1 SECONDS (11.7-14.9)
[2022-07-01 20:57] LABS: Partial Thromboplast Time 33.4 Seconds (24.1-36.2)
--- NOTE | 2022-07-01 21:00 | ED.RN ---
AT THE BEDSIDE AT THIS TIME
[2022-07-01 21:01] LABS: Anion Gap 7 (5-15); BUN 14 mg/dL (7-18); Calcium,Total 9.1 mg/dL (8.5-10.1); Chloride 103 mmol/L (98-107); Creatinine, Serum 0.74 mg/dL (0.55-1.02); EST Glomerular Filtration Rate 83 mL/min (>60); Est Glom Filt Rate - Afr Amer 101 mL/min (>60); Estimated Creatinine Clearance 53.09 ml/min; Glucose 251 mg/dL (74-106); Potassium 3.6 mmol/L (3.5-5.1); Sodium Level 139 mmol/L (136-145); Troponin-I HS 31 pg/mL (3.0-54.0)
--- NOTE | 2022-07-01 21:10 | RAD_ITS ---
STUDY: XR Chest 1 View 07/01/2022 9:06 PM REASON FOR EXAM: Female, 66 years old. CHEST PAIN Intubation, NG/OG placement -- Neuro deficit, acute, stroke suspected COMPARISON: None TECHNIQUE: XR Chest 1 View FINDINGS: There is no demonstrated pleural abnormality. There is bilateral infiltrate / atelectasis. There are multiple median sternotomy wires. There is an endotracheal tube in place. The tip is 41 mm above the jesusita. There is a feeding tube/ nasogastric tube noted. The tip is not seen because it extends off the film. Normal heart size. Normal mediastinum. Normal jeanie. Prominent appearing increased interstitial lung markings. Normal visualized pulmonary arteries. There is atherosclerotic calcification of the aortic arch with tortuosity. There are diffuse degenerative changes of the visualized thoracic spine. There is degenerative osteoarthritis of the bilateral shoulders. There is no demonstrated abnormality of the visualized soft tissue structures of the upper abdomen. RAD/Chest 1 View (Portable) IMPRESSION: There is bilateral infiltrate / atelectasis. Electronically Signed: Fidel Castillo MD at 21:27 EST ,
[2022-07-01] MEDS: Etomidate 20 MG/10 ML Vial IV (21:15)
[2022-07-01] MEDS: Propofol 10MG/Ml 1,000 MG/100 ML Bottle 6.2 MG CONT INF (21:18)
--- NOTE | 2022-07-01 21:20 | ED.RN ---
[facility] TRANSPORT [facility] FOR PATIENT AT THIS TIME
--- NOTE | 2022-07-01 21:51 | ED.RN ---
[facility] CALLED AND UPDATED ON TRANSFER AND PATIENT CONDITION
[2022-07-01 21:54] LABS: CPK Total, Creatine Kinase 109 U/L (26-192); Triglycerides 337 mg/dL
--- NOTE | 2022-07-01 22:20 | ED.RN ---
CARDENE THAT WAS INFUSED WAS 20MG/200ML VS ORDERED DOSE OF 25MG/200ML
== END 2022-07-01 21:43 | disposition short-term general hospital (02) ==
PROVIDERS: Emergency Provider Emergency Medicine; PCP Internal Medicine; Visit Provider Emergency Medicine
DX: I63.9 Cerebral infarction, unspecified (principal); I60.9 Nontraumatic subarachnoid hemorrhage, unspecified; E11.9 Type 2 diabetes mellitus without complications; R11.2 Nausea with vomiting, unspecified; E78.00 Pure hypercholesterolemia, unspecified; I10 Essential (primary) hypertension; R20.2 Paresthesia of skin; E66.9 Obesity, unspecified
CPT/HCPCS: 31500; 51702; 70450; 71045; 80048; 82550; 84478; 84484; 85025; 85610; 85730; 93005; 96365; 96375; 99252; 99285; A4216; G0463; J2405

== ENCOUNTER 2022-07-24 14:49 | Inpatient (IN) | payer MEDICARE, SELFPAY ==
[2022-07-24 14:53] VITALS: BP 122/69; PULSE 69; PULSE 73; RESP 16; RESP 17; TEMP 35.9; O2SAT 94; O2SAT 97; BMI 31.6
[2022-07-24 15:39] VITALS: BMI 31.6
[2022-07-24] MEDS: metFORMIN (XR) 500 MG Tablet 1000 MG PO (16:53)
[2022-07-24] MEDS: buPROPion 75 MG Tablet PO (16:54)
[2022-07-24] MEDS: Pregabalin 75 MG Capsule PO (16:54)
[2022-07-24] MEDS: Carvedilol 6.25 MG Tablet PO (16:54)
[2022-07-24 17:10] LABS: Bedside Glucose 137 mg/dL (74-106)
[2022-07-24] MEDS: Acetaminophen 500 MG Tablet 1000 MG PO (17:32)
--- NOTE | 2022-07-24 18:07 | NURSING ---
[place] crash from pts room, entered room and found pt leaning heavily over in bed and food tray on floor. pt stated she was trying to reach for her diet coke. Assisted and repositioning in bed, staff cleaned pt and floor. Linens and gown changed.
--- NOTE | 2022-07-24 20:18 | HP.PCM_ITS ---
HPI - General General Date of Admission: 07/24/22 Date of Service: 07/24/22 Chief Complaint: Here for rehabilitation. HPI Narrative 07/01/2022 HARSHAL AKERS, is a 66 Female who presents to [facility] Emergency Department with stroke alert. 07/01/2022 EKG normal sinus rhythm, cannot rule out inferior infarct, age undetermined. Abrupt headache, nausea, vomiting, left sided weakness. Remote history of stroke 13 years ago. Arrived by EMS, vomited enroute. Severe headache, dense left hemiplegia. NIHSS score 11. CT brain showed right parietal hemorrhagic stroke (Right temporoparietal IPH, SAH, IVH). Cardene drip for high blood pressure. Mannitol for cerebral edema. Intubated, Foy inserted. Flown to [facility]. 07/01/2022 [facility] ED Neurosurgery placed external ventricular drain. 07/02/2022 Admit to [facility] NCCU. Neurochecks, blood pressure control. Propofol drip for sedation, pain control. Mechanical ventilation. 07/02/2022 Neurosurgery evacuated right frontoparietal hematoma. Dynamic cerebral autoregulation negative. 07/04/2022 CT brain showed worsening bleed. Extubated. External ventricular drain placed for ICH/SAH/Hydrocephalus. 07/13/2022 EVD removed. 07/14/2022 Hypotension secondary to Hydralazine improved with fluid bolus, holding medication. 07/15/2022 NIHSS 4-6, eating, drinking okay, on room air. Change gabapentin to Lyrica for low back pain. 07/16/2022 WBC 17, evaluate for infection, remove NG. 07/17/2022 Cefepime, Vancomycin. 07/18/2022 Urine culture growing E. Coli, Enterococcus Faecalis. Rx Flomax for urinary retention. 07/19/2022 Change Cefepime, Vancomycin to Amoxicillin for UTI. 07/20/2022 CT brain okay, remove Foy. 07/21/2022 Fall, no injury. 07/22/2022 Voiding well, Foy out. 07/23/2022 SCD's, Lovenox for DVT prophylaxis. 07/24/2022 Admit to TCU with debility, here for rehabilitation, strengthening, prior to discharge home with . FORMERLY [facility], [facility] Medical History (Updated 07/24/22 @ 20:[address] Corey Portillo MD) Anxiety Diabetes History of ectopic Stroke/cerebrovascular accident Home Medications bupropion HCl 150 mg 24 hr tablet, extended release 75 mg PO BID Mood 10/03/15 [History Last Taken Unknown] metformin 500 mg 24 hr tablet,extended release 1,000 mg PO BID DM 10/03/15 [History Last Taken Unknown] potassium chloride 20 mEq tablet,extended release(part/cryst) (Klor-Con M) 20 meq PO MOWEFR 10/03/15 [History Last Taken Unknown] rosuvastatin 20 mg tablet (Crestor) 10 mg PO QHS Cholestrol 10/03/15 [History Last Taken Unknown] sertraline 50 mg tablet 100 mg PO DAILY Mood 10/03/15 [History Last Taken Unknown] trazodone 50 mg tablet 50 mg PO QHS 10/03/15 [History Last Taken Unknown] lorazepam 0.5 mg tablet 0.5 mg PO DAILY PRN PRN Anxiety 01/17/16 [History Last Taken Unknown] aspirin 81 mg tablet,delayed release (Aspir-Low) 81 mg PO DAILY 11/26/16 [History Last Taken Unknown] calcium carbonate 500 mg calcium (1,250 mg) tablet 500 mg PO DAILY 11/26/16 [History Last Taken Unknown] dulaglutide 1.5 mg/0.5 mL subcutaneous pen injector 1.5 mg SQ QWEEK 07/01/20 [History Last Taken Unknown] losartan 100 mg-hydrochlorothiazide 25 mg tablet 1 ea PO DAILY 07/01/20 [History Last Taken Unknown] amlodipine 10 mg tablet 10 mg PO DAILY BP 07/24/22 [History Last Taken Unknown] bisacodyl 10 mg rectal suppository 10 mg SD DAILY PRN Constipation 07/24/22 [History Last Taken Unknown] carvedilol 6.25 mg tablet (Coreg) 6.25 mg PO BID BP 07/24/22 [History Last Taken Unknown] dapagliflozin 5 mg tablet (Farxiga) 5 mg PO DAILY DM 07/24/22 [History Last Taken Unknown] diclofenac sodium 1 % topical gel 2 ea topical 4X/DAY Pain 07/24/22 [History Last Taken Unknown] dulaglutide 4.5 mg/0.5 mL subcutaneous pen injector (Trulicity) 4.5 mg subcut QWEEK DM 07/24/22 [History Last Taken Unknown] levothyroxine 75 mcg tablet 75 mcg PO DAILY Thyroid 07/24/22 [History Last Taken Unknown] lidocaine 4 % topical patch 2 patch topical DAILY Pain 07/24/22 [History Last Taken Unknown] lisinopril 20 mg tablet 20 mg PO DAILY BP 07/24/22 [History Last Taken Unknown] methocarbamol 500 mg tablet 1,000 mg PO TID Pain/Muscle spasms 07/24/22 [History Last Taken Unknown] polyethylene glycol 3350 17 gram oral powder packet (Miralax) 17 g PO BID Stool softners 07/24/22 [History Last Taken Unknown] pregabalin 75 mg capsule (Lyrica) 75 mg PO BID Nerve pain 07/24/22 [History Last Taken Unknown] quetiapine 25 mg tablet (Seroquel) 25 mg PO TID PRN Agitation 07/24/22 [History Last Taken Unknown] sennosides 17.2 mg tablet 17.2 mg PO BID Stool softener 07/24/22 [History Last Taken Unknown] tamsulosin 0.4 mg capsule 0.4 mg PO DAILY Urine retention 07/24/22 [History Last Taken Unknown] Allergy/AdvReac Type Severity Reaction Status Date / Time latex Allergy Rash Verified 07/01/22 20:45 naproxen Allergy Rash Verified 07/01/22 20:45 Vmiotte-Kbr-Trr Reductase Allergy MUSCLE Verified 07/01/22 20:45 Inhibitor ACHES Surgical History (Updated 07/24/22 @ 20:[address] Corey Portillo MD) History of bunionectomy History of open heart surgery History of vein stripping Previous back surgery Social History (Updated 07/24/22 @ 20:[address] Corey Portillo MD) household members: spouse Smoking Status: Never smoker alcohol intake: never substance use type: does not use ROS Constitutional Constitutional: Denies chills, fever(s) or weight gain ENT HEENT: Denies headache(s), nasal congestion or nasal discharge Cardiovascular Cardiovascular: Denies chest pain or palpitations Respiratory/Chest Respiratory/Chest: Denies cough, excessive phlegm production or shortness of breath with exertion Gastrointestinal Gastrointestinal: Denies abdominal pain, nausea or vomiting Genitourinary Genitourinary: Denies dysuria Musculoskeletal Musculoskeletal: Denies joint pain or joint swelling Integumentary Integumentary: Denies rash or wounds Neurologic Neurologic: Denies focal weakness, numbness or tingling Psychiatric Psychiatric: Denies anxiety, auditory hallucinations, depression, homicidal ideation or suicidal ideation Vital Signs Vital Signs Vital Signs: 07/24/22 14:53 07/24/22 14:53 Temperature 96.7 F L Temperature Source Temporal Pulse Rate 73 69 Pulse Rhythm Regular Pulse Strength Normal (2+) Respiratory Rate 16 17 Respiratory Effort Normal Non-Labored Respiratory Depth Normal Respiratory Pattern Normal Blood Pressure 122/69 H Blood Pressure Mean 86 Blood Pressure Source Monitor Blood Pressure Position Supine Blood Pressure Location Right Arm Pulse Ox 94 97 Oxygen Delivery Method Room Air Room Air Weight Weight: 91.314 kg Body Mass Index (BMI) 31.6 Physical Exam Const alert General Appearance: cooperative HEENT normocephalic Eyes PERRL and EOMs intact bilaterally Neck supple, no JVD and no carotid bruits Resp normal respiratory effort, normal air movement and clear to auscultation bilaterally Cardio regular rate and regular rhythm GI normal to inspection, nondistended, normoactive bowel sounds, non-tender and non-distended Extremity normal capillary refill General Extremity: Negative for edema Skin no rashes or lesions noted General Skin Exam: no breakdown Psych affect normal Appearance: appropriate Results Lab / Micro Data Labs: Laboratory Results - last 24 hr 07/24/22 16:50: POC Glucose 137 H Micro: Microbiology 07/24/22 15:52 Nasal Secretion SARS-CoV-2 Antigen (Rapid) - Final Assessment & Plan Assessment/Plan (1) Debility: (2) Hemorrhagic stroke: (3) Urinary tract infection: (4) Obstructive sleep apnea: (5) Left breast mass: (6) Diabetes mellitus: (7) Hypertension: (8) Hyperlipidemia: (9) Depression: (10) Hypokalemia: (11) Insomnia: (12) Anxiety: PLAN: Plan 66 year old female with below past medical history hospitalized for right hemorrhagic stroke, status post evacuation right frontoparietal hematoma 07/02/2022, complicated by urinary tract infection, admitted to TCU with debility, here for rehabilitation, strengthening, prior to discharge home with . * Debility - PT/OT/ST. * Pain - Tylenol 1000mg q6h prn pain (1-10). * Bowel - Miralax 17gm bid, senokot 2 tablets bid, Dulcolax 10mg pr daily prn. * Adult immunization - Administer pneumonia vaccine, covid19 vaccine, flu vaccine as appropriate. * DVT prophylaxis - Hold, hemorrhagic stroke. * Hypertension - Coreg 6.25mg bid, Lisinopril 20mg daily, Amlodipine 10mg daily. * Depression - Sertraline 100mg daily, Bupropion 75mg bid, stable chronic retirement use, GDR not recommended. * Low back pain - Diclofenac topical 4x/day, Lidoderm patch 2 patches td daily, Lyrica 75mg bid. * Diabetes Mellitus II - Metformin XR 1000mg bid, Jardiance 10mg daily, Glargine 10 units daily, Trulicity 4.5mg per week. * Nutrition - Glucerna Shake 120ml tidcm. * Hypothyroidism - Levothyroxine 75mcg daily. * Muscle spasm - Robaxin 1000mg tid. * Agitation - Seroquel 25mg tid prn, GDR as resident mental status improves. * Hyperlipidemia - Rosuvastatin 10mg qhs.
[2022-07-24] MEDS: Methocarbamol 500 MG Tablet 1000 MG PO (21:01)
[2022-07-24] MEDS: Insulin Glargine-YFGN 100 UNIT/ML Pen 10 UNIT SC (21:08)
[2022-07-24 21:31] LABS: Bedside Glucose 199 mg/dL (74-106)
[2022-07-25 05:00] VITALS: BP 100/50; PULSE 65; RESP 16
[2022-07-25] MEDS: Pregabalin 75 MG Capsule PO ×2 (05:17→17:58)
[2022-07-25] MEDS: Senna Tablet 2 TABLET PO ×2 (05:17→17:57)
[2022-07-25] MEDS: Methocarbamol 500 MG Tablet 1000 MG PO (05:17)
[2022-07-25] MEDS: Carvedilol 6.25 MG Tablet PO ×2 (05:17→17:58)
[2022-07-25] MEDS: Sertraline 100 MG Tablet PO (05:17)
[2022-07-25] MEDS: Levothyroxine 75 MCG Tablet PO (05:17)
[2022-07-25 05:36] LABS: Absolute Lymphocyte Count 2.58 X10^3/uL (0.83-4.51); Absolute Neutrophil Count 4.1 X10^3/uL (2.0-7.7); Basophil# 0.06 X10^3/uL; Basophil% 0.7 % (0-1); Eosinophil# 0.58 X10^3/uL; Eosinophils% 7.2 % (0-5); Hematocrit 32.9 % (37-47); Hemoglobin 10.6 g/dL (12.0-15.0); Lymphocyte # 2.58 X10^3/ul (0.83-4.51); Lymphocyte % 31.9 % (19-41); Mean Corp Hgb Conc 32.2 g/dL (32-36); Mean Corpuscular Hgb 30.9 pg (27.0-32.0); Mean Corpuscular Volume 95.9 fL (81-99); Mean Platelet Vol. 9.4 fl (6.2-12.0); Monocyte# 0.77 X10^3/uL; Monocyte% 9.5 % (0-10); NRBC Flagged by Analyzer 0 % (0-5); Neutrophil # 4.09 X10^3/uL (2.7-7.7); Neutrophil % 50.5 % (47-70); Platelet Count 335 K/mm3 (150-450); RBC Distribution Width CV 12.4 % (11.6-14.6); RBC Distribution Width SD 43.1 fl (35.1-43.9); Red Blood Count 3.43 M/mm3 (4.2-5.4); White Blood Count 8.1 K/mm3 (4.4-11.0)
[2022-07-25 05:56] LABS: Anion Gap 4 (5-15); BUN 16 mg/dL (7-18); BUN/Creat Ratio 23.7 RATIO (10-20); Calcium,Total 9.5 mg/dL (8.5-10.1); Chloride 105 mmol/L (98-107); Creatinine, Serum 0.68 mg/dL (0.55-1.02); EST Glomerular Filtration Rate 92 mL/min (>60); Est Glom Filt Rate - Afr Amer 112 mL/min (>60); Estimated Creatinine Clearance 51.11 ml/min; Glucose 103 mg/dL (74-106); Potassium 3.7 mmol/L (3.5-5.1); Sodium Level 140 mmol/L (136-145)
[2022-07-25] MEDS: buPROPion 75 MG Tablet PO ×2 (06:29→17:57)
[2022-07-25 06:31] LABS: Bedside Glucose 104 mg/dL (74-106)
[2022-07-25] MEDS: Glucerna Shake 120 ML LIQUID PO ×2 (07:49→13:48)
[2022-07-25] MEDS: metFORMIN (XR) 500 MG Tablet 1000 MG PO ×2 (07:53→17:59)
[2022-07-25] MEDS: amLODIPine 10 MG Tablet PO (07:53)
[2022-07-25] MEDS: Empagliflozin 10 MG Tablet PO (07:53)
[2022-07-25] MEDS: Lisinopril 20 MG Tablet PO (07:54)
[2022-07-25 07:58] VITALS: BP 106/63; PULSE 66
[2022-07-25] MEDS: Acetaminophen 500 MG Tablet 1000 MG PO ×2 (08:02→14:44)
[2022-07-25] MEDS: Ascorbic Acid 500 MG Tablet PO (08:52)
[2022-07-25] MEDS: Iron Polysaccharide Complex 150 MG CAPSULE PO (08:52)
[2022-07-25] MEDS: Lidocaine 5% Patch 2 PATCH TOPICAL (08:53)
[2022-07-25] MEDS: Tuberculin,Purif.prot.deriv. 50 TU/ML Vial 0.1 ML ID (08:55)
[2022-07-25 11:11] LABS: Bedside Glucose 126 mg/dL (74-106)
--- NOTE | 2022-07-25 11:18 | NURSING ---
verified dose with pt regarding trulicity, pt takes every saturday at [address]. will update Dr Portillo
--- NOTE | 2022-07-25 12:34 | NURSING ---
Tarp Repairer Note; Activity Asset: Velma Staley is independent in her choice of daily activities. She has her personal Adult coloring book and colored pencils. She will read from time to time and family will come to visit. At this time she prefers to rest, do therapy and just hang out in her room. She is not interested in group activities at this time, will continue to do social visit and encourage small group activities for social well-being.
[2022-07-25 16:00] VITALS: BP 97/56; PULSE 67; RESP 15; TEMP 36.1; O2SAT 98
[2022-07-25] MEDS: Methocarbamol 500 MG Tablet PO (17:58)
[2022-07-25] MEDS: Tamsulosin HCl 0.4 MG Capsule PO (17:59)
--- NOTE | 2022-07-25 18:01 | NURSING ---
alarm sounding and staff found assisting pt from chair to bed. did come to desk and say she gets up without assist so he had to help her. he stated that she does not listen well. did educate that he needs to call for help. pt fast and does not follow directions at times. asked if ok to put pt on camera, he stated yes definitely. brought in BasisCode along with jag. will send glargine back home when he arrives to visit tomorrow. BasisCode sent to pharmacy to verify and label per orders.
[2022-07-25 18:35] LABS: Bedside Glucose 114 mg/dL (74-106)
[2022-07-25 21:05] VITALS: PULSE 68; RESP 14; O2SAT 94
[2022-07-25 22:00] LABS: Bedside Glucose 113 mg/dL (74-106)
[2022-07-25] MEDS: Insulin Glargine-YFGN 100 UNIT/ML Pen 10 UNIT SC (22:03)
[2022-07-26] MEDS: Carvedilol 6.25 MG Tablet PO ×2 (05:39→17:17)
[2022-07-26] MEDS: Levothyroxine 75 MCG Tablet PO (05:39)
[2022-07-26] MEDS: Methocarbamol 500 MG Tablet PO ×2 (05:39→17:18)
[2022-07-26] MEDS: Sertraline 100 MG Tablet PO (05:39)
[2022-07-26] MEDS: Pregabalin 75 MG Capsule PO ×2 (05:39→17:20)
[2022-07-26] MEDS: buPROPion 75 MG Tablet PO ×2 (05:39→17:19)
[2022-07-26 05:47] VITALS: BP 117/66; PULSE 70
[2022-07-26 06:31] LABS: Bedside Glucose 117 mg/dL (74-106)
[2022-07-26] MEDS: Glucerna Shake 120 ML LIQUID PO ×3 (08:05→17:15)
[2022-07-26] MEDS: metFORMIN (XR) 500 MG Tablet 1000 MG PO ×2 (08:27→17:15)
[2022-07-26] MEDS: Empagliflozin 10 MG Tablet PO (08:27)
[2022-07-26] MEDS: Ascorbic Acid 500 MG Tablet PO (08:27)
[2022-07-26] MEDS: Lisinopril 20 MG Tablet PO (08:27)
[2022-07-26] MEDS: Iron Polysaccharide Complex 150 MG CAPSULE PO (08:27)
[2022-07-26] MEDS: amLODIPine 10 MG Tablet PO (08:27)
[2022-07-26 09:30] VITALS: PULSE 69; RESP 18; O2SAT 95
[2022-07-26] MEDS: Lidocaine 5% Patch 2 PATCH TOPICAL (10:16)
--- NOTE | 2022-07-26 11:07 | PHA.CONS_ITS ---
TCU RX Drug Regimen Review Subjective: 66 YOF admitted to TCU 07/24/22 S/P hospitalization at outside facility secondary to hemorrhagic stroke with intervention. Hospitalization further complicated by a UTI. Admitted to TCU for rehabilitation and strengthening prior to discharge home where she resides with her . Objective: Allergies latex Allergy (Verified 07/01/22 20:45) Rash naproxen Allergy (Verified 07/01/22 20:45) Rash Zhvzdop-XHA-QrU Reductase Inhibitor [Nyjcuqt-Tuj-Qog Reductase Inhibitor] Allergy (Verified 07/01/22 20:45) MUSCLE ACHES Current Medications Generic Name Dose Route Start Last Admin Trade Name Freq PRN Reason Stop Dose Admin Acetaminophen 1,000 mg 07/25/22 17:37 Acetaminophen 500 Mg Tablet PO Q6H PRN PRN Pain Score 1-3 Amlodipine Besylate 10 mg 07/25/22 08:00 07/26/22 08:27 Amlodipine 10 Mg Tablet PO 10 mg DAILY@0800 JUNAID Administration Ascorbic Acid 500 mg 07/25/22 08:00 07/26/22 08:27 Ascorbic Acid 500 Mg Tablet PO 500 mg BREAKFAST JUNAID Administration Bisacodyl 10 mg 07/24/22 15:32 Bisacodyl 10 Mg Suppository RC DAILY PRN PRN Constipation Bupropion HCl 75 mg 07/24/22 18:00 07/26/22 05:39 Bupropion 75 Mg Tablet PO 75 mg BID JUNAID Administration Carvedilol 6.25 mg 07/24/22 18:00 07/26/22 05:39 Carvedilol 6.25 Mg Tablet PO 6.25 mg BID JUNAID Administration Diclofenac Sodium 2 applic 07/24/22 17:00 07/26/22 05:43 Diclofenac 1% Gel 100gm Tube TOPICAL 2 applic 4X/DAY JUNAID Administration Empagliflozin 10 mg 07/25/22 08:00 07/26/22 08:27 Empagliflozin 10 Mg Tablet PO 10 mg DAILY@0800 [facility] Administration Insulin Glargine 10 unit 07/24/22 22:00 07/25/22 22:03 Insulin Glargine-Yfgn 100 Unit/Ml Pen SC 10 unit QHS JUNAID Administration Levothyroxine Sodium 75 mcg 07/25/22 06:00 07/26/22 05:39 Levothyroxine 75 Mcg Tablet PO 75 mcg DAILY JUNAID Administration Lidocaine 2 patch 07/25/22 10:00 07/26/22 10:16 Lidocaine 5% Patch TOPICAL 2 patch 1000 JUNAID Administration Lisinopril 20 mg 07/25/22 08:00 07/26/22 08:27 Lisinopril 20 Mg Tablet PO 20 mg DAILY@0800 [facility] Administration Metformin HCl 1,000 mg 07/24/22 17:00 07/26/22 08:27 Metformin (Xr) 500 Mg Tablet PO 1,000 mg BIDCM [facility] Administration Methocarbamol 500 mg 07/25/22 18:00 07/26/22 05:39 Methocarbamol 500 Mg Tablet PO 500 mg BID JUNAID Administration Nutritional Formula (Lactose Free) 120 ml 07/25/22 07:45 07/26/22 08:05 Glucerna Shake 120 Ml Liquid PO 120 ml TIDCM [facility] Administration Polyethylene Glycol 17 gm 07/24/22 18:00 07/26/22 05:39 Polyethylene Glycol 3350 17 Gm Packet PO Not Given BID [facility] Polysaccharide Iron Complex 150 mg 07/25/22 08:00 07/26/22 08:27 Iron Polysaccharide Complex 150 Mg Capsule PO 150 mg 0800 [facility] Administration Pregabalin 75 mg 07/24/22 18:00 07/26/22 05:39 Pregabalin 75 Mg Capsule PO 75 mg BID [facility] Administration Rosuvastatin Calcium 10 mg 07/24/22 22:00 07/25/22 20:26 Rosuvastatin Calcium 10 Mg Tablet PO 10 mg QHS [facility] Administration Senna 2 tablet 07/24/22 18:00 07/26/22 05:39 Senna Tablet PO Not Given BID [facility] Sertraline HCl 100 mg 07/25/22 06:00 07/26/22 05:39 Sertraline 100 Mg Tablet PO 100 mg DAILY [facility] Administration Sodium Chloride 10 - 40 ml 07/24/22 15:45 0.9% Saline Lock 10 Ml Syringe IV UD PRN SALINE FLUSH Tamsulosin HCl 0.4 mg 07/25/22 17:30 07/25/22 17:59 Tamsulosin Hcl 0.4 Mg Capsule PO 0.4 mg DAILY@1730 [facility] Administration Tramadol HCl 50 mg 07/25/22 17:36 Tramadol 50 Mg Tablet PO Q6H PRN PRN Pain Score 4-10 Tuberculin PPD 0.1 ml 08/01/22 10:00 Tuberculin,Purif.Prot.Deriv. 50 Tu/Ml Vial ID 08/01/22 10:01 X1 ONE Problem List (Last Updated 07/24/22 @ 20:[address] Corey Portillo MD) Anxiety (Acute) Insomnia (Acute) Hypokalemia (Acute) Depression (Acute) Hyperlipidemia (Acute) Hypertension (Chronic) Diabetes mellitus (Acute) Left breast mass (Acute) Obstructive sleep apnea (Acute) Urinary tract infection (Acute) Hemorrhagic stroke (Acute) Debility (Acute) Vital Signs Temp Pulse Resp BP Pulse Ox O2 Del Method O2 Flow Rate 97 F L 70 14 117/66 94 Nasal Cannula 2 07/25/22 16:00 07/26/22 05:47 07/25/22 21:05 07/26/22 05:47 07/25/22 21:05 07/25/22 21:05 07/25/22 21:05 Oxygen Flow Rate (L/min) 2 Oxygen Delivery Method Nasal Cannula Weight: 91.314 kg Body Mass Index (BMI) 31.6 Sodium 140 mmol/L (136-145) 07/25/22 05:17 Potassium 3.7 mmol/L (3.5-5.1) 07/25/22 05:17 Chloride 105 mmol/L (98-107) 07/25/22 05:17 Carbon Dioxide 31.0 mmol/L (21.0-32.0) 07/25/22 05:17 Anion Gap 4 (5-15) L 07/25/22 05:17 BUN 16 mg/dL (7-18) 07/25/22 05:17 Creatinine 0.68 mg/dL (0.55-1.02) 07/25/22 05:17 Est GFR (MDRD) Af Amer 112 mL/min (>60) 07/25/22 05:17 Est GFR (MDRD) Non-Af 92 mL/min (>60) 07/25/22 05:17 BUN/Creatinine Ratio 23.7 RATIO (10-20) H 07/25/22 05:17 Glucose 103 mg/dL (74-106) 07/25/22 05:17 Assessment/Plan: 1. Lower back pain, General Pain: Tylenol 1000mg PO Q6h PRN Pain 1-3, Voltaren gel topically 4x/day, Lidocaine patch 2 patches topically daily, Lyrica 75mg PO BID, Tramadol 50mg PO Q6h PRN Pain 4-10. Please continue to monitor for increased/decreased S/S pain, PRN medication usage, Oversedation/respiratory slowing with tramadol use, local site irritation/redness with topical product use. - The patient has not required any PRN medication doses since admission, it appears patient is controlled at this time. 2. Hypertension/ Hyperlipidemia: Norvasc 10mg PO daily, Coreg 6.25mg PO BID, Lisinopril 20mg PO Daily, Crestor 10mg PO QHS. Please continue to monitor blood pressure (Range 97-122/50-69), pulse (range 65-73), lipid panel annually. The patient does not have a lipid panel on file, please consider obtaining a lipid panel if not done in the past year. 3. Type II Diabetes: Jardiance 10mg PO Daily, Insulin Glargine 10 unit SC QHS, Metformin XR 1000mg PO BIDCM, Trulicity 4.5mg SC Weekly. Please continue to monitor BG levels, S/S hypoglycemia. Please consider ordering an A1C as last documented A1c was completed 06/2020, thank you. 4. Hypothyroidism: Synthroid 75mcg PO daily. Please continue to monitor thyroid function tests as clinically indicated. The patient does not have a TSH on file, please consider ordering one if appropriate. thank you. 5. Urinary Retention: Flomax 0.4mg PO Daily. Please continue to monitor for urinary retention, S/S UTI infection, hypotension. 6. Muscle Spasm: Robaxin 500mg PO BID. Please continue to monitor for medication effectiveness. This is a Beer's criteria medication and increase the risk of falls, anticholinergic side effects. Please continue to monitor closely. 7. General Wellness: Ascorbic Acid 500mg PO Daily, Ferrex 150mg PO Daily. Please continue to monitor. 8. Bowel: Miralax 17g PO Daily, Senna 2 tab PO BID, Dulcolax 10mg RI Daily PRN. Please continue to monitor for increased/decreased constipation and/or diarrhea. -To date, the patient has not had a bowel movement. Please consider giving PRN medication if pt does not have a bowel movement in the next 48hrs. Assessment/Plan for indications treated with psychotropic medications: 9. Depression: Zoloft 100mg PO Daily, Bupropion 75mg PO BID. Please consider a GDR by 01/2023 if clinically indicated, thank you. Zoloft is a Beer's Criteria medication and can increase the risk of falls and fractures in patients older than 65. Please evaluate use for this patient, thank you. Medical chart and medication regimen reviewed. The following medication irregularities or issues were identified: 1. Depression: Zoloft 100mg PO Daily, Bupropion 75mg PO BID. Please consider a GDR by 01/2023 if clinically indicated, thank you. 2. The patient does not have a lipid panel on file. Please consider obtaining a lipid panel if not done in the previous year, thank you. 3. Diabetes: Please consider ordering an A1c, as last documented one was done in 06/2020, thank you. 4. Hypothyroidism: No TSH currently on file. IF TSH has not been ordered within the past year, please consider ordering one if appropriate, thank you. Date of Note:: 07/26/22
[2022-07-26 11:21] LABS: Bedside Glucose 139 mg/dL (74-106)
--- NOTE | 2022-07-26 11:33 | CASEMGMT ---
Social Work Met with patient to complete initial assessment. Introduced self and role. Visitor/employee of [facility] present in room. SW asked if assessment can be completed in front of visitor or offered to return. Pt stated visitor is a close family friend and she can be involved. SW proceeded with assessment. Verified contacts. Educated to [facility] insurance with NRD 3/2 and continued stay is not guaranteed with each review. Discussed code status and MOLST form. Pt wishes to be DNR-CCA, no intubation. MOLST for placed in Dr folder. Notified nursing for DNR form to be signed and bracelet placed. SW to continue to follow. Nadia Reynolds, [employer] ROUNDING MACHINE OPERATOR
[2022-07-26] MEDS: Acetaminophen 500 MG Tablet 1000 MG PO (12:37)
[2022-07-26 15:07] VITALS: BP 112/63; PULSE 73; RESP 14; TEMP 36.3; O2SAT 92
[2022-07-26] MEDS: Tamsulosin HCl 0.4 MG Capsule PO (17:16)
[2022-07-26 17:51] LABS: Bedside Glucose 91 mg/dL (74-106)
[2022-07-26] MEDS: Insulin Glargine-YFGN 100 UNIT/ML Pen 10 UNIT SC (21:27)
[2022-07-26 21:56] LABS: Bedside Glucose 109 mg/dL (74-106)
[2022-07-27] MEDS: Pregabalin 75 MG Capsule PO ×2 (05:17→18:36)
[2022-07-27] MEDS: Sertraline 100 MG Tablet PO (05:18)
[2022-07-27] MEDS: buPROPion 75 MG Tablet PO ×2 (05:18→18:30)
[2022-07-27] MEDS: Methocarbamol 500 MG Tablet PO ×2 (05:18→18:29)
[2022-07-27] MEDS: Carvedilol 6.25 MG Tablet PO ×2 (05:18→18:28)
[2022-07-27] MEDS: Levothyroxine 75 MCG Tablet PO (05:18)
[2022-07-27 05:25] VITALS: BP 140/70; PULSE 72; RESP 16; O2SAT 98
[2022-07-27 05:47] LABS: Hematocrit 32.1 % (37-47); Hemoglobin 10.2 g/dL (12.0-15.0)
[2022-07-27 06:21] LABS: Bedside Glucose 114 mg/dL (74-106)
[2022-07-27] MEDS: metFORMIN (XR) 500 MG Tablet 1000 MG PO ×2 (08:34→18:27)
[2022-07-27] MEDS: Ascorbic Acid 500 MG Tablet PO (08:34)
[2022-07-27] MEDS: Empagliflozin 10 MG Tablet PO (08:35)
[2022-07-27] MEDS: amLODIPine 10 MG Tablet PO (08:35)
[2022-07-27] MEDS: Iron Polysaccharide Complex 150 MG CAPSULE PO (08:36)
[2022-07-27] MEDS: traMADol 50 MG Tablet PO (08:41)
[2022-07-27] MEDS: Lisinopril 20 MG Tablet PO (08:42)
[2022-07-27 09:09] VITALS: O2SAT 97
[2022-07-27 11:35] LABS: Bedside Glucose 125 mg/dL (74-106)
[2022-07-27] MEDS: Lidocaine 5% Patch 2 PATCH TOPICAL (12:29)
[2022-07-27 14:50] VITALS: BP 116/49; PULSE 64; RESP 16; TEMP 36.8; O2SAT 92
[2022-07-27 17:05] LABS: Bedside Glucose 96 mg/dL (74-106)
[2022-07-27] MEDS: Tamsulosin HCl 0.4 MG Capsule PO (18:30)
[2022-07-27] MEDS: Acetaminophen 500 MG Tablet 1000 MG PO (18:36)
[2022-07-27 21:41] LABS: Bedside Glucose 105 mg/dL (74-106)
[2022-07-27 22:00] VITALS: PULSE 85; RESP 16; O2SAT 92
[2022-07-27] MEDS: Insulin Glargine-YFGN 100 UNIT/ML Pen 10 UNIT SC (22:35)
[2022-07-28] MEDS: Pregabalin 75 MG Capsule PO ×2 (06:42→18:49)
[2022-07-28] MEDS: Carvedilol 6.25 MG Tablet PO ×2 (06:44→18:49)
[2022-07-28 06:45] LABS: Bedside Glucose 118 mg/dL (74-106)
[2022-07-28] MEDS: Sertraline 100 MG Tablet PO (06:45)
[2022-07-28] MEDS: Methocarbamol 500 MG Tablet PO ×2 (06:45→18:52)
[2022-07-28] MEDS: Levothyroxine 75 MCG Tablet PO (06:45)
[2022-07-28] MEDS: buPROPion 75 MG Tablet PO ×2 (06:45→18:51)
[2022-07-28] MEDS: Lisinopril 20 MG Tablet PO (09:09)
[2022-07-28] MEDS: Iron Polysaccharide Complex 150 MG CAPSULE PO (09:09)
[2022-07-28] MEDS: Empagliflozin 10 MG Tablet PO (09:09)
[2022-07-28] MEDS: metFORMIN (XR) 500 MG Tablet 1000 MG PO ×2 (09:09→18:47)
[2022-07-28] MEDS: Ascorbic Acid 500 MG Tablet PO (09:10)
[2022-07-28] MEDS: amLODIPine 10 MG Tablet PO (09:10)
[2022-07-28] MEDS: Lidocaine 5% Patch 2 PATCH TOPICAL (09:32)
[2022-07-28] MEDS: Acetaminophen 500 MG Tablet 1000 MG PO (09:32)
[2022-07-28 10:55] VITALS: PULSE 80; RESP 16; O2SAT 93
[2022-07-28 11:16] LABS: Bedside Glucose 165 mg/dL (74-106)
[2022-07-28 14:23] VITALS: BP 103/60; PULSE 70; RESP 15; TEMP 35.8; O2SAT 93
[2022-07-28 16:46] LABS: Bedside Glucose 77 mg/dL (74-106)
[2022-07-28] MEDS: Tamsulosin HCl 0.4 MG Capsule PO (18:49)
[2022-07-28] MEDS: traMADol 50 MG Tablet PO (20:34)
[2022-07-28] MEDS: Insulin Glargine-YFGN 100 UNIT/ML Pen 10 UNIT SC (20:42)
[2022-07-28 21:11] LABS: Bedside Glucose 116 mg/dL (74-106)
[2022-07-29 05:48] LABS: Hemoglobin 11.1 g/dL (12.0-15.0)
[2022-07-29] MEDS: Methocarbamol 500 MG Tablet PO ×2 (05:49→17:42)
[2022-07-29] MEDS: Levothyroxine 75 MCG Tablet PO (05:49)
[2022-07-29] MEDS: Sertraline 100 MG Tablet PO (05:49)
[2022-07-29] MEDS: Pregabalin 75 MG Capsule PO ×2 (05:49→17:53)
[2022-07-29] MEDS: Carvedilol 6.25 MG Tablet PO ×2 (05:49→17:41)
[2022-07-29] MEDS: buPROPion 75 MG Tablet PO ×2 (05:49→17:43)
[2022-07-29 06:30] LABS: Bedside Glucose 102 mg/dL (74-106)
[2022-07-29] MEDS: Iron Polysaccharide Complex 150 MG CAPSULE PO (08:48)
[2022-07-29] MEDS: metFORMIN (XR) 500 MG Tablet 1000 MG PO ×2 (08:49→17:40)
[2022-07-29] MEDS: amLODIPine 10 MG Tablet PO (08:50)
[2022-07-29] MEDS: Lisinopril 20 MG Tablet PO (08:51)
[2022-07-29] MEDS: Ascorbic Acid 500 MG Tablet PO (08:51)
[2022-07-29] MEDS: Empagliflozin 10 MG Tablet PO (08:52)
[2022-07-29 10:45] VITALS: O2SAT 93
[2022-07-29 11:00] LABS: Bedside Glucose 102 mg/dL (74-106)
[2022-07-29] MEDS: Lidocaine 5% Patch 2 PATCH TOPICAL (12:04)
[2022-07-29 14:15] VITALS: BP 101/49; PULSE 73; RESP 16; TEMP 36.3; O2SAT 95
[2022-07-29 16:40] LABS: Bedside Glucose 114 mg/dL (74-106)
[2022-07-29] MEDS: Tamsulosin HCl 0.4 MG Capsule PO (17:40)
[2022-07-29 21:12] VITALS: PULSE 71; RESP 16; O2SAT 94
[2022-07-29] MEDS: Insulin Glargine-YFGN 100 UNIT/ML Pen 10 UNIT SC (21:34)
[2022-07-29] MEDS: Acetaminophen 500 MG Tablet 1000 MG PO (21:40)
[2022-07-29 22:05] LABS: Bedside Glucose 121 mg/dL (74-106)
[2022-07-30] MEDS: Levothyroxine 75 MCG Tablet PO (05:17)
[2022-07-30] MEDS: buPROPion 75 MG Tablet PO ×2 (05:17→17:05)
[2022-07-30] MEDS: Sertraline 100 MG Tablet PO (05:17)
[2022-07-30] MEDS: Pregabalin 75 MG Capsule PO ×2 (05:17→17:03)
[2022-07-30] MEDS: Methocarbamol 500 MG Tablet PO ×2 (05:18→17:04)
[2022-07-30 06:25] LABS: Bedside Glucose 121 mg/dL (74-106)
[2022-07-30 07:39] VITALS: O2SAT 94
[2022-07-30] MEDS: Empagliflozin 10 MG Tablet PO (07:55)
[2022-07-30] MEDS: metFORMIN (XR) 500 MG Tablet 1000 MG PO ×2 (07:55→17:02)
[2022-07-30] MEDS: Iron Polysaccharide Complex 150 MG CAPSULE PO (07:55)
[2022-07-30] MEDS: Carvedilol 6.25 MG Tablet PO ×2 (07:55→17:02)
[2022-07-30] MEDS: Lisinopril 20 MG Tablet PO (07:56)
[2022-07-30] MEDS: Ascorbic Acid 500 MG Tablet PO (07:56)
[2022-07-30] MEDS: amLODIPine 10 MG Tablet PO (07:56)
[2022-07-30] MEDS: Lidocaine 5% Patch 2 PATCH TOPICAL (07:59)
--- NOTE | 2022-07-30 11:02 | CASEMGMT ---
Social Work BIMS () and PHQ-9 (10/20) completed for MDS assessment. Insurance approved precert for IRU, admit 07/31. SW spoke with pt and to update on transfer. SW educated to Team meetings weekly on . expressed great appreciation. Plan: DC 07/31 to IRU [facility]
[2022-07-30 11:36] LABS: Bedside Glucose 106 mg/dL (74-106)
--- NOTE | 2022-07-30 12:44 | NURSING ---
brings in new box of of Johnity in for pt at this time. One pen sent to be labeled for use today. Box placed in refrigerator.
[2022-07-30] MEDS: DULAGLUTIDE 4.5 MG/0.5 ML SQ (13:55)
--- NOTE | 2022-07-30 14:21 | NURSING ---
COVID 19 booster offered and education about vaccine provided. Resident does not want at this time.
[2022-07-30 16:00] VITALS: BP 108/60; PULSE 76; RESP 18; TEMP 36.3; O2SAT 93
[2022-07-30] MEDS: Tamsulosin HCl 0.4 MG Capsule PO (17:03)
[2022-07-30 17:50] LABS: Bedside Glucose 75 mg/dL (74-106)
--- NOTE | 2022-07-30 18:37 | DS.PCM_ITS ---
Providers Date of Admission: 07/24/22 Primary Care Physician: Dr. Flaquita Fink MD Reason For Visit: CVA Diagnosis Discharge Diagnosis (1) Debility: Status: Acute Code(s): R53.81 - Other malaise (2) Hemorrhagic stroke: Status: Acute Code(s): I61.9 - Nontraumatic intracerebral hemorrhage, unspecified (3) Urinary tract infection: Status: Acute Code(s): N39.0 - Urinary tract infection, site not specified (4) Obstructive sleep apnea: Status: Acute Code(s): G47.33 - Obstructive sleep apnea (adult) (pediatric) (5) Left breast mass: Status: Acute Code(s): N63.20 - Unspecified lump in the left breast, unspecified quadrant (6) Diabetes mellitus: Status: Acute Code(s): E11.9 - Type 2 diabetes mellitus without complications (7) Hypertension: Status: Chronic Code(s): I10 - Essential (primary) hypertension (8) Hyperlipidemia: Status: Acute Code(s): E78.5 - Hyperlipidemia, unspecified (9) Depression: Status: Acute Code(s): F32.A - Depression, unspecified (10) Hypokalemia: Status: Acute Code(s): E87.6 - Hypokalemia (11) Insomnia: Status: Acute Code(s): G47.00 - Insomnia, unspecified (12) Anxiety: Status: Acute Code(s): F41.9 - Anxiety disorder, unspecified Plan 66 year old female with below past medical history hospitalized for right hemorrhagic stroke, status post evacuation right frontoparietal hematoma 07/02/2022, complicated by urinary tract infection, admitted to TCU with debility, here for rehabilitation, strengthening, prior to discharge home with . * Debility - PT/OT/ST. * Pain - Tylenol 1000mg q6h prn pain (1-10). * Bowel - Miralax 17gm bid, senokot 2 tablets bid, Dulcolax 10mg pr daily prn. * Adult immunization - Administer pneumonia vaccine, covid19 vaccine, flu va ccine as appropriate. * DVT prophylaxis - Hold, hemorrhagic stroke. * Hypertension - Coreg 6.25mg bid, Lisinopril 20mg daily, Amlodipine 10mg daily. 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 * Low back pain - Diclofenac topical 4x/day, Lidoderm patch 2 patches td daily, Lyrica 75mg bid. * Diabetes Mellitus II - Metformin XR 1000mg bid, Jardiance 10mg daily, Glargine 10 units daily, Trulicity 4.5mg per week. * Nutrition - Glucerna Shake 120ml tidcm. * Hypothyroidism - Levothyroxine 75mcg daily. * Muscle spasm - Robaxin 1000mg tid. * Agitation - Seroquel 25mg tid prn, GDR as resident mental status improves. * Hyperlipidemia - Rosuvastatin 10mg qhs. * Urinary retention - Tamsulosin 0.4mg daily. Medications at Discharge Home Medications bupropion HCl 150 mg 24 hr tablet, extended release 75 mg PO BID Mood 10/03/15 metformin 500 mg 24 hr tablet,extended release 1,000 mg PO BID DM 10/03/15 rosuvastatin 20 mg tablet (Crestor) 10 mg PO QHS Cholestrol 10/03/15 sertraline 50 mg tablet 100 mg PO DAILY Mood 10/03/15 amlodipine 10 mg tablet 10 mg PO DAILY BP 07/24/22 bisacodyl 10 mg rectal suppository 10 mg GA DAILY PRN Constipation 07/24/22 carvedilol 6.25 mg tablet (Coreg) 6.25 mg PO BID BP 07/24/22 diclofenac sodium 1 % topical gel 2 ea topical 4X/DAY Pain 07/24/22 dulaglutide 4.5 mg/0.5 mL subcutaneous pen injector (Trulicity) 4.5 mg subcut WICLOX@1300 DM 07/24/22 levothyroxine 75 mcg tablet 75 mcg PO DAILY Thyroid 07/24/22 lidocaine 4 % topical patch 2 patch topical DAILY Pain 07/24/22 lisinopril 20 mg tablet 20 mg PO DAILY BP 07/24/22 pregabalin 75 mg capsule (Lyrica) 75 mg PO BID Nerve pain 07/24/22 tamsulosin 0.4 mg capsule 0.4 mg PO DAILY Urine retention 07/24/22 Remove Patch 1 patch topical DAILY@2200 ##0 07/30/22 acetaminophen 500 mg tablet 1,000 mg PO Q6H PRN PRN Pain Score 1-3 #0 tabs 07/30/22 ascorbic acid (vitamin C) 500 mg tablet 500 mg PO BREAKFAST #0 tabs 07/30/22 empagliflozin 10 mg tablet (Jardiance) 10 mg PO DAILY@0800 #0 tabs 07/30/22 insulin glargine-yfgn 100 unit/mL (3 mL) subcutaneous pen 10 unit (0.1 mL) subcut QHS #0 mL 07/30/22 methocarbamol 500 mg tablet 500 mg PO BID #0 tabs 07/30/22 nutrition tx glu intol,lac-free,soy-fiber 0.06 gram-1.2 kcal/mL liquid (Glucerna 1.2 Noe) 120 ml PO TIDCM #0 mL 07/30/22 polysaccharide iron complex 150 mg iron capsule (Ferrex) 150 mg PO 0800 #0 caps 07/30/22 sennosides 8.6 mg tablet (senna) 2 tab PO BID #0 tabs 07/30/22 tramadol 50 mg tablet 50 mg PO Q6H PRN PRN Pain Score 4-10 #0 tabs 07/30/22 Hospital Course Operations None Procedures None Summary of Care Provided Minutes Spent on Discharge: 35 Hospital Course: 66 year old female with below past medical history hospitalized for right hemorrhagic stroke, status post evacuation right frontoparietal hematoma 07/02/2022, complicated by urinary tract infection, admitted to TCU with debility, here for rehabilitation, strengthening, prior to discharge home with . Discharge to IRU 07/31/2022 for 3 hours daily rehabilitation. Physical Exam Const alert General Appearance: cooperative HEENT normocephalic Eyes PERRL and EOMs intact bilaterally Neck supple, no JVD and no carotid bruits Resp normal respiratory effort, normal air movement and clear to auscultation bilaterally Cardio regular rate and regular rhythm GI normal to inspection, nondistended, normoactive bowel sounds, non-tender and non-distended Extremity normal capillary refill General Extremity: Negative for edema Skin no rashes or lesions noted General Skin Exam: no breakdown Neuro Neuro Narrative: Left hemiparesis. Psych affect normal Appearance: appropriate Weight / BMI Weight Weight: 91.314 kg Body Mass Index (BMI) 31.6 ABG / Lab / Microbiology Data Result Diagrams: 07/29/22 05:24 07/25/22 05:17 Laboratory: Laboratory Results - last 24 hr 07/29/22 21:33: POC Glucose 121 H 07/30/22 05:56: POC Glucose 121 H 07/30/22 10:50: POC Glucose 106 07/30/22 16:36: POC Glucose 75 Microbiology: Microbiology 07/28/22 06:53 Nasal Secretion SARS-CoV-2 Antigen (Rapid) - Final 07/26/22 05:58 Nasal Secretion SARS-CoV-2 Antigen (Rapid) - Final 07/24/22 15:52 Nasal Secretion SARS-CoV-2 Antigen (Rapid) - Final D/C Instructions Discharge Diet: No restrictions Discharge Activity: Return to Normal Activity, May Shower and Use Walker Weight Bearing Status: Weight bearing as tolerated Call your doctor if you observe: Fever of 101 or Higher, Inability to urinate, Inability to have a bowel movement, Shortness of breath, Dizziness, Fainting spells, Swelling in the ankles, Chest pain and Uncontrolled pain Additional Instructions: Discharge to IRU 07/31/2022 for 3 hours daily rehabilitation. Meaningful Use Info Meaningful Use Diagnoses (Choose all that apply): Hemorrhagic CVA CVA Therapy Assessed for PT,OT and/or ST?: Yes Discharge Plan Admission Admit Date/Time: 07/24/22 14:49 Primary Reason for Your Visit: Debility. Attending Provider: Corey Portillo Chi Primary Care Provider: Flaquita Fink Instructions Additional Instructions / Restrictions: Discharge to IRU 07/31/2022 for 3 hours daily rehabilitation. Discharge Orders/Prescriptions Prescriptions: New methocarbamol 500 mg Tablet 500 mg PO BID Qty: 0 0RF sennosides [senna] 8.6 mg Tablet 2 tab PO BID Qty: 0 0RF acetaminophen 500 mg Tablet 1,000 mg PO Q6H PRN PRN (Reason: Pain Score 1-3) Qty: 0 0RF ascorbic acid (vitamin C) 500 mg Tablet 500 mg PO BREAKFAST Qty: 0 0RF Glucerna 1.2 Noe 0.06-1.2 gram-kcal/mL Liquid 120 ml PO TIDCM Qty: 0 0RF Jardiance 10 mg Tablet 10 mg PO DAILY@0800 Qty: 0 0RF insulin glargine-yfgn 100 unit/mL (3 mL) Insulin Pen 10 unit subcut QHS Qty: 0 0RF polysaccharide iron complex [Ferrex 150] 150 mg iron Capsule 150 mg PO 0800 Qty: 0 0RF tramadol 50 mg Tablet 50 mg PO Q6H PRN PRN (Reason: Pain Score 4-10) Qty: 0 0RF Remove Patch 1 patch topical DAILY@2200 Qty: 0 0RF Continued sertraline 50 MG tablet 100 mg PO DAILY rosuvastatin [Crestor] 20 MG tablet 10 mg PO QHS bupropion HCl 150 MG tablet extended release 24 hr 75 mg PO BID metformin 500 MG tablet,ER iman.retention 24 hr 1,000 mg PO BID carvedilol [Coreg] 6.25 mg Tablet 6.25 mg PO BID Rx Instructions: must administer with a meal/food lidocaine 4 % Adhesive Patch,Medicated 2 patch TOPICAL DAILY Rx Instructions: Apply to back lisinopril 20 mg Tablet 20 mg PO DAILY levothyroxine 75 mcg Tablet 75 mcg PO DAILY tamsulosin 0.4 mg Capsule 0.4 mg PO DAILY amlodipine 10 mg Tablet 10 mg PO DAILY bisacodyl 10 mg Suppository 10 mg GA DAILY PRN (Reason: Constipation) pregabalin [Lyrica] 75 mg Capsule 75 mg PO BID diclofenac sodium 1 % Gel 2 ea TOPICAL 4X/DAY Rx Instructions: Apply 2 grams topically to back Trulicity 4.5 mg/0.5 mL Pen Injector 4.5 mg SUBCUT WILCOX@1300 Rx Instructions: takes on Sundays @ 1300 Discontinued trazodone 50 MG tablet 50 mg PO QHS potassium chloride [Klor-Con M20] 20 MEQ tablet 20 meq PO MOWEFR lorazepam 0.5 MG tablet 0.5 mg PO DAILY PRN PRN (Reason: Anxiety) aspirin [Aspir-Low] 81 MG tablet,delayed release (DR/EC) 81 mg PO DAILY calcium carbonate 500 MG tablet 500 mg PO DAILY losartan-hydrochlorothiazide 1 EACH tablet 1 ea PO DAILY quetiapine [Seroquel] 25 mg Tablet 25 mg PO TID PRN (Reason: Agitation) methocarbamol [Robaxin] 500 mg Tablet 1,000 mg PO TID polyethylene glycol 3350 [Miralax] 17 gram Powder In Packet 17 g PO BID sennosides 17.2 mg Tablet 17.2 mg PO BID Farxiga 5 mg Tablet 5 mg PO DAILY Referrals / Follow Up: Carlos Jose [Other] - 08/27/22 10:15 am [facility] [Other] - 08/27/22 9:00 am (Arrive to ground floor registration in the Radiology department for CT SCAN) [facility] [Outside] - 09/24/22 2:05 pm (Danielle Gutierrez, [facility] [address] [address] FIRST FLOOR) Flaquita Fink MD [Primary Care Provider] - Disposition Disposition (needs filled in before D/C Order can be placed): [facility]
[2022-07-30 21:45] LABS: Bedside Glucose 95 mg/dL (74-106)
--- NOTE | 2022-07-30 21:55 | NURSING ---
Patient requests side rails x4, educated on side rail policy, patient states I like them up, they help me move around and they make me feel safer. Patient encouraged to notify staff when would like side rails lowered, patient verbalizes understanding. Presents as A&Ox3 at this time. Offered patient cpap per order, patient declines, stating it hurts the sore spots on my head right now, I don't want to wear it, agrees to O2 at @2LPM. No distress observed or reported. Able to voice needs. Call light in reach. Personal alarm in place per order and functioning properly.
[2022-07-31] MEDS: Sertraline 100 MG Tablet PO (05:09)
[2022-07-31] MEDS: Levothyroxine 75 MCG Tablet PO (05:09)
[2022-07-31] MEDS: Pregabalin 75 MG Capsule PO (05:09)
[2022-07-31] MEDS: buPROPion 75 MG Tablet PO (05:09)
[2022-07-31] MEDS: Senna Tablet 2 TABLET PO (05:10)
[2022-07-31] MEDS: Methocarbamol 500 MG Tablet PO (05:10)
[2022-07-31 06:36] LABS: Bedside Glucose 89 mg/dL (74-106)
[2022-07-31 07:51] VITALS: O2SAT 93
[2022-07-31] MEDS: Ascorbic Acid 500 MG Tablet PO (08:22)
[2022-07-31] MEDS: Iron Polysaccharide Complex 150 MG CAPSULE PO (08:22)
[2022-07-31] MEDS: Carvedilol 6.25 MG Tablet PO (08:22)
[2022-07-31] MEDS: metFORMIN (XR) 500 MG Tablet 1000 MG PO (08:22)
[2022-07-31] MEDS: Lisinopril 20 MG Tablet PO (08:22)
[2022-07-31] MEDS: Empagliflozin 10 MG Tablet PO (08:22)
[2022-07-31] MEDS: amLODIPine 10 MG Tablet PO (08:22)
[2022-07-31 11:30] LABS: Bedside Glucose 85 mg/dL (74-106)
[2022-07-31] MEDS: Lidocaine 5% Patch 2 PATCH TOPICAL (11:30)
[2022-07-31 13:04] VITALS: BP 93/43; PULSE 80; RESP 18; TEMP 37.2; O2SAT 95
--- NOTE | 2022-08-02 12:09 | MDS.RN ---
Information for the mds was obtained from review of the clinical record, interview of resident, staff, and direct observation of resident's care.
== END 2022-07-31 13:30 | disposition short-term general hospital (02) | DRG 57 ==
PROVIDERS: Admitting Provider Family Medicine Geriatric Medicine; PCP Internal Medicine; Visit Provider Family Medicine Geriatric Medicine
DX: I69.354 Hemiplegia and hemiparesis following cerebral infarction affecting left non-dominant side (principal); N39.0 Urinary tract infection, site not specified; E03.9 Hypothyroidism, unspecified; E11.9 Type 2 diabetes mellitus without complications; E78.5 Hyperlipidemia, unspecified; I10 Essential (primary) hypertension; F41.9 Anxiety disorder, unspecified; G47.33 Obstructive sleep apnea (adult) (pediatric); F32.A Depression, unspecified; Z79.899 Other long term (current) drug therapy; Z79.84 Long term (current) use of oral hypoglycemic drugs; Z79.82 Long term (current) use of aspirin; R33.9 Retention of urine, unspecified; N63.20 Unspecified lump in the left breast, unspecified quadrant; Z79.890 Hormone replacement therapy
CPT/HCPCS: 36415; 80048; 82962; 85014; 85018; 85025; 87811; 92507; 96125; 97110; 97116; 97129; 97130; 97162; 97166; 97530; 97535; 97802

== ENCOUNTER 2022-07-31 13:35 | Inpatient (IN) | payer MEDICARE, SELFPAY ==
[2022-07-31 13:48] VITALS: BP 114/70; PULSE 82; RESP 16; TEMP 37.2; O2SAT 96
[2022-07-31 14:23] VITALS: BMI 32.5
[2022-07-31 15:23] VITALS: BMI 32.5
[2022-07-31 16:16] LABS: Bedside Glucose 94 mg/dL (74-106)
[2022-07-31] MEDS: Glucerna Shake 120 ML LIQUID PO (17:24)
[2022-07-31] MEDS: Carvedilol 6.25 MG Tablet PO (18:07)
[2022-07-31] MEDS: metFORMIN (XR) 500 MG Tablet 1000 MG PO (18:07)
[2022-07-31 19:15] VITALS: BP 121/71; PULSE 80; RESP 16; TEMP 36.9; O2SAT 96
[2022-07-31 20:09] VITALS: O2SAT 95
--- NOTE | 2022-07-31 20:09 | CPS ---
pt is going to wear 2 l/m via nc at night until able to wear own bipap machine
[2022-07-31] MEDS: traMADol 50 MG Tablet PO (20:16)
[2022-07-31] MEDS: Methocarbamol 500 MG Tablet PO (20:34)
[2022-07-31] MEDS: Insulin Glargine-YFGN 100 UNIT/ML Pen 10 UNIT SC (20:34)
[2022-07-31] MEDS: Pregabalin 75 MG Capsule PO (20:34)
[2022-07-31] MEDS: buPROPion 75 MG Tablet PO (20:35)
[2022-07-31] MEDS: Senna/Docusate Sodium 1 Tablet 2 TABLET PO (20:35)
[2022-07-31 20:39] VITALS: BMI 32.5
[2022-07-31 21:25] LABS: Bedside Glucose 127 mg/dL (74-106)
[2022-07-31 22:00] VITALS: PULSE 80; RESP 16; O2SAT 98
[2022-08-01 05:39] LABS: Absolute Lymphocyte Count 2.58 X10^3/uL (0.83-4.51); Absolute Neutrophil Count 3.4 X10^3/uL (2.0-7.7); Basophil# 0.08 X10^3/uL; Basophil% 1.1 % (0-1); Eosinophil# 0.21 X10^3/uL; Eosinophils% 2.9 % (0-5); Hematocrit 32.4 % (37-47); Hemoglobin 10.9 g/dL (12.0-15.0); Lymphocyte # 2.58 X10^3/ul (0.83-4.51); Lymphocyte % 35.6 % (19-41); Mean Corp Hgb Conc 33.6 g/dL (32-36); Mean Corpuscular Hgb 31.5 pg (27.0-32.0); Mean Corpuscular Volume 93.6 fL (81-99); Mean Platelet Vol. 9.5 fl (6.2-12.0); Monocyte# 0.94 X10^3/uL; NRBC Flagged by Analyzer 0 % (0-5); Neutrophil # 3.42 X10^3/uL (2.7-7.7); Neutrophil % 47.1 % (47-70); Platelet Count 219 K/mm3 (150-450); Red Blood Count 3.46 M/mm3 (4.2-5.4); White Blood Count 7.3 K/mm3 (4.4-11.0)
[2022-08-01 06:07] LABS: ALB/GLOB Ratio 0.7 RATIO (0.9-2.4); AST(SGOT) 17 U/L (15-37); Alanine Aminotransfer ALT/SGPT 24 U/L (13-56); Albumin, Serum 2.8 g/dL (3.2-5.0); Alkaline Phosphatase 68 U/L (45-117); Anion Gap 8 (5-15); BUN 15 mg/dL (7-18); BUN/Creat Ratio 23.3 RATIO (10-20); Calcium,Total 9.6 mg/dL (8.5-10.1); Chloride 103 mmol/L (98-107); Creatinine, Serum 0.64 mg/dL (0.55-1.02); EST Glomerular Filtration Rate 97 mL/min (>60); Est Glom Filt Rate - Afr Amer 118 mL/min (>60); Estimated Creatinine Clearance 51.11 ml/min; Globulin 4.3 g/dL (2.2-4.2); Glucose 104 mg/dL (74-106); Magnesium 1.7 mg/dL (1.6-2.6); Phosphorus 3.8 mg/dL (2.5-4.9); Potassium 3.7 mmol/L (3.5-5.1); Protein, Total 7.1 g/dL (6.4-8.2); Sodium Level 139 mmol/L (136-145)
[2022-08-01] MEDS: Lidocaine 5% Patch 2 PATCH TOPICAL (06:36)
[2022-08-01 06:50] VITALS: BMI 31.3
[2022-08-01 06:56] LABS: Bedside Glucose 105 mg/dL (74-106)
[2022-08-01 07:22] VITALS: BP 120/68; PULSE 88; RESP 17; TEMP 37; O2SAT 95
[2022-08-01] MEDS: Glucerna Shake 120 ML LIQUID PO (08:05)
[2022-08-01] MEDS: metFORMIN (XR) 500 MG Tablet 1000 MG PO (08:06)
[2022-08-01] MEDS: amLODIPine 10 MG Tablet PO (08:06)
[2022-08-01] MEDS: Senna/Docusate Sodium 1 Tablet 2 TABLET PO ×2 (08:06→22:00)
[2022-08-01] MEDS: Sertraline 100 MG Tablet PO (08:06)
[2022-08-01] MEDS: Carvedilol 6.25 MG Tablet PO ×2 (08:06→16:57)
[2022-08-01] MEDS: Iron Polysaccharide Complex 150 MG CAPSULE PO (08:06)
[2022-08-01] MEDS: buPROPion 75 MG Tablet PO ×2 (08:06→21:59)
[2022-08-01] MEDS: Ascorbic Acid 500 MG Tablet PO (08:06)
[2022-08-01] MEDS: Lisinopril 20 MG Tablet PO (08:06)
[2022-08-01] MEDS: Methocarbamol 500 MG Tablet PO (08:06)
[2022-08-01] MEDS: Empagliflozin 10 MG Tablet PO (08:07)
[2022-08-01] MEDS: Tamsulosin HCl 0.4 MG Capsule PO (08:08)
[2022-08-01] MEDS: Pregabalin 75 MG Capsule PO ×2 (08:15→22:04)
[2022-08-01] MEDS: DICLOFENAC SODIUM 100 GM GEL..GRAM. TOPICAL ×4 (08:26→22:00)
[2022-08-01 09:54] VITALS: BMI 31.3
--- NOTE | 2022-08-01 12:19 | CPS ---
Speech Therapy working with patient
[2022-08-01 12:25] LABS: Bedside Glucose 103 mg/dL (74-106)
--- NOTE | 2022-08-01 13:11 | HP.PCM_ITS ---
HPI - General General Date of Admission: 07/31/22 Date of Service: 08/01/22 Chief Complaint: Debility due to R side hemorrhagic stroke (SAH, IPH and IVH). S/P craniotomy. 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 on 07/01/2022 complaining of abrupt onset of severe headache associated with nausea/vomiting and left-sided weakness. NIHSS was 11 in the emergency department. A stat noncontrast CT brain showed a 63 mm intraparenchymal intracranial hemorrhage of the right parietal lobe. There was overlying cerebral edema and the hemorrhage extended into the right temporal lobe. There was also subarachnoid blood overlying the right temporal lobe and extending into the right parietal lobe. Hemorrhage also extended into the lateral and third ventricles. There was a hyperdense focus in the left frontal lobe consistent with hematoma. Case was discussed with neurosurgery at [facility] and transfer to [facility] was recommended. The patient was intubated for transport. Upon arrival at [facility] neurosurgery placed an external ventricular drain and the patient was admitted to the neurointensive care unit. On 07/02/2022 neurosurgery evacuated the right frontal parietal hematoma. On 07/04/2022 CT brain showed worsening bleeding and an external ventricular drain was placed once again. It was removed on 07/13/2022. While at [facility] she had a Foy catheter and developed a urinary tract infection secondary to E. coli and Enterococcus faecalis. She was treated a ppropriately with antibiotics. She was having difficulty with urine retention and was started on Flomax with improvement. Foy catheter was removed on 07/22/2022. She was admitted to the transitional care unit at [facility] on 07/24/2022 and on 07/31/2022 she was transferred from TCU to the acute rehab unit at [facility] for 3 hours of therapy daily to restore function/independence at or near her level prior to the hemorrhagic stroke. Rebeka lives in a one story home with her . All lab drawn this AM was personally reviewed. White blood cell count and platelets are normal and the hemoglobin is 10.9 and stable. Sodium is 139 and the potassium is 3.7. The BUN is 15 with a creatinine of 0.64 which is within her baseline. Phosphorus is normal at 3.8 and the magnesium is borderline low at 1.7. Calcium is within normal limits. LFTs are unremarkable. Afebrile VSS Maintaining appropriate oxygen saturation on RA Oral intake is not good today. She tells me that dinner last night did not sit well with her and her appetite is down today but previously had been good and she likes the food at [facility]. Total intake since midnight is 320 cc but the output is 4270 for a balance of -3950? Will check with nursing to make sure this is correct. Discussed with nursing - no problems that need addressed Reviewed the PT/OT/ST notes Medication list reviewed. Blood sugar record was reviewed. The at bedtime blood sugar was 127 and the fasting today was 105. She has had no recent hypoglycemia but the blood sugars are pretty consistently less than 100. She is currently taking Trulicity 4.5 mg once weekly on Saturday. She is getting glargine 10 units nightly and metformin 1000 mg twice daily. She is also on Jardiance 10 mg daily. Sliding scale insulin was discontinued. [facility] Medical History (Updated 08/01/22 @ 14:[address] Ramona Padilla DO) Abdominal adhesions Anxiety Chronic back pain Diabetes mellitus, type 2 History of ectopic Stroke/cerebrovascular accident Home Medications bupropion HCl 150 mg 24 hr tablet, extended release 75 mg PO BID Mood 10/03/15 [History Last Taken Unknown] metformin 500 mg 24 hr tablet,extended release 1,000 mg PO BID DM 10/03/15 [History Last Taken Unknown] rosuvastatin 20 mg tablet (Crestor) 10 mg PO QHS Cholestrol 10/03/15 [History Last Taken Unknown] sertraline 50 mg tablet 100 mg PO DAILY Mood 10/03/15 [History Last Taken Unknown] amlodipine 10 mg tablet 10 mg PO DAILY BP 07/24/22 [History Last Taken Unknown] carvedilol 6.25 mg tablet (Coreg) 6.25 mg PO BID BP 07/24/22 [History Last Taken Unknown] diclofenac sodium 1 % topical gel 2 ea topical 4X/DAY Pain 07/24/22 [History Last Taken Unknown] dulaglutide 4.5 mg/0.5 mL subcutaneous pen injector (Trulicity) 4.5 mg subcut WILCOX@1300 DM 07/24/22 [History Last Taken Unknown] levothyroxine 75 mcg tablet 75 mcg PO DAILY Thyroid 07/24/22 [History Last Taken Unknown] lidocaine 4 % topical patch 2 patch topical DAILY Pain 07/24/22 [History Last Taken Unknown] lisinopril 20 mg tablet 20 mg PO DAILY BP 07/24/22 [History Last Taken Unknown] pregabalin 75 mg capsule (Lyrica) 75 mg PO BID Nerve pain 07/24/22 [History Last Taken Unknown] tamsulosin 0.4 mg capsule 0.4 mg PO DAILY Urine retention 07/24/22 [History Last Taken 07/30/22 17:00] acetaminophen 500 mg tablet 1,000 mg PO Q6H PRN PRN Pain Score 1-3 #0 tabs 07/30/22 [Rx Last Taken Unknown] ascorbic acid (vitamin C) 500 mg tablet 500 mg PO BREAKFAST supplement 07/31/22 [History Last Taken Unknown] empagliflozin 10 mg tablet (Jardiance) 10 mg PO DAILY@0800 Check with primary doctor 07/31/22 [History Last Taken Unknown] insulin glargine-yfgn 100 unit/mL (3 mL) subcutaneous pen 10 unit subcut QHS DM 07/31/22 [History Last Taken Unknown] methocarbamol 500 mg tablet 500 mg PO BID Check with primary doctor 07/31/22 [History Last Taken Unknown] nutrition tx glu intol,lac-free,soy-fiber 0.06 gram-1.2 kcal/mL liquid (Glucerna 1.2 Noe) 120 ml PO TIDCM supplement 07/31/22 [History Last Taken Unknown] polysaccharide iron complex 150 mg iron capsule (Ferrex) 150 mg PO 0800 supplement 07/31/22 [History Last Taken Unknown] tramadol 50 mg tablet 50 mg PO Q6H PRN PRN Pain Score 1-10 07/31/22 [History Last Taken 07/28/22 20:00] Allergy/AdvReac Type Severity Reaction Status Date / Time latex Allergy Rash Verified 07/01/22 20:45 naproxen Allergy Rash Verified 07/01/22 20:45 Pibbzgs-URI-KqF Reductase Allergy MUSCLE Verified 07/01/22 20:45 Inhibitor ACHES [Dzgokrg-Gpt-Aol Reductase Inhibitor] Family History no significant family his Surgical History (Updated 08/01/22 @ 14:[address] Ramona Padilla DO) History of bunionectomy History of open heart surgery History of vein stripping Previous back surgery Social History (Updated 08/01/22 @ 14:[address] Ramona Padilla DO) household members: spouse housing: other details: One-story house with 2 steps to enter the house Smoking Status: Never smoker alcohol intake: never substance use type: does not use ROS Constitutional Constitutional: Reports weakness; Denies anorexia, chills, fever(s) or night sweats Eyes Eyes: Denies blurry vision, change in vision, discharge from eye(s), double vision or eye pain ENT HEENT: Denies abnormal hearing, dysphagia, ear pain, headache(s) or sore throat Cardiovascular Cardiovascular: Denies chest pain, orthopnea, palpitations or paroxysmal nocturnal dyspnea Respiratory/Chest Respiratory/Chest: Denies cough, shortness of breath at rest or shortness of breath with exertion Gastrointestinal Gastrointestinal: Reports nausea; Denies abdominal pain, constipation, diarrhea or vomiting Genitourinary Genitourinary: Denies dysuria, urinary frequency, urinary hesitancy, urinary incontinence or urinary urgency Musculoskeletal Musculoskeletal: Reports back pain; Denies extremity pain or neck pain Integumentary Integumentary: Denies jaundice, pruritus or rash Neurologic Neurologic: Reports confusion; Denies abnormal speech, dizziness, headache(s), numbness, seizures or tremor(s) Psychiatric Psychiatric: Reports anxiety and depression; Denies homicidal ideation or suicidal ideation Endocrine Endocrinology: Denies change in body appearance, cold intolerance, heat into lerance, polydipsia or polyuria Hematologic/Lymphatic Hematologic/Lymphatic: Denies easy bleeding or easy bruising Vital Signs Vital Signs Vital Signs: 07/31/22 13:48 07/31/22 19:15 07/31/22 20:09 Temperature 99.0 F 98.4 F Temperature Source Oral Temporal Pulse Rate 82 80 Respiratory Rate 16 16 Respiratory Effort Respiratory Depth Respiratory Pattern Blood Pressure 114/70 121/71 H Blood Pressure Mean 84 87 Blood Pressure Source Monitor Monitor Blood Pressure Position Semi-Fowlers Sitting Blood Pressure Location Right Arm Right Arm Pulse Ox 96 96 95 Oxygen Delivery Method Room Air Room Air Room Air 07/31/22 22:00 08/01/22 07:22 Temperature 98.6 F Temperature Source Temporal Pulse Rate 80 88 Respiratory Rate 16 17 Respiratory Effort Normal Non-Labored Respiratory Depth Normal Respiratory Pattern Normal Blood Pressure 120/68 Blood Pressure Mean 85 Blood Pressure Source Monitor Blood Pressure Position Semi-Fowlers Blood Pressure Location Left Arm Pulse Ox 98 95 Oxygen Delivery Method Room Air Room Air Weight Weight: 194 lb 3.636 oz Body Mass Index (BMI) 31.3 Indicators for Scoring Admitted with or Primary Diagnosis of CVA/Stroke: Yes Hx of CVA/Stroke: Yes Modified John Score MRS Score at time of Evaluation: 4-Moderate/severe disability NIHSS NIHSS 1a. Level of Consciousness: Alert; keenly responsive 1b. LOC Questions: Answers BOTH questions correctly. 1c. LOC Commands: Performs both tasks correctly. 2. Best Gaze: Normal 3. Visual: No visual loss 4. Facial Palsy: Normal symmetrical movements 5a. Left Arm: No drift; arm holds 90 (or 45) degrees for full 10 seconds 5b. Right Arm: No drift; arm holds 90 (or 45) degrees for full 10 seconds 6a. Left Leg: No drift; leg holds 30-degree position for full 5 seconds 6b. Right Leg: No drift; leg holds 30-degree position for full 5 seconds 7. Limb Ataxia: Absent 8. Sensory: Normal; no sensory loss 9. Best Language: No aphasia; normal 10. Dysarthria: Normal 11. Extinction and Inattention: Visual, tactile, auditory, spatial, or personal inattention Total: 1 Stroke Questions Stroke Team Activated: No Physical Exam Const alert, oriented x3 and no apparent distress Constitutional Narrative: Rebeka is lying in bed and appears comfortable. She is appropriate and very pleasant to talk to. General Appearance: cooperative and well developed HEENT moist oral mucous membranes HEENT Narrative: Incision due to R craniotomy. Eyes PERRL and EOMs intact bilaterally Eyes Narrative: No visual loss. She has visual extinction with the left eye. The left eye appears bigger than the R. Neck supple, No nodes and no carotid bruits General: trachea midline Resp normal respiratory effort, normal air movement and clear to auscultation bilaterally Effort and Inspection: Negative for tachypneic or respiratory distress Cardio regular rate, regular rhythm, S1 normal heart sound, S2 normal heart sound, no murmurs, no rub and no gallops Cardio Narrative: No ectopy GI normal to inspection, nondistended, normoactive bowel sounds, soft to palpation and non-tender GI Narrative: Soft, no guarding with palpation. Extremity normal capillary refill and no calf tenderness Extremity Narrative: Radial and dorsalis pedis pulses are 3/3 bilaterally. General Extremity: Negative for clubbing, cyanosis or edema Skin no jaundice and no petechiae Skin Narrative: No rashes and no skin breakdown. The incision in the right frontotemporal area secondary to craniotomy is intact with no radha-incisional erythema and no purulent discharge. Neuro CN's II-XII intact bilaterally Neuro Narrative: The L eye is a little larger than the R.......may have a little lid lag of the L upper eye lid but, she can squeeze both eyes tightly shut. No drift with any of the 4 extremities. She has both tactile and visual neglect/extinction. Coordination / Balance: ophiay-rv-[id number] test normal and jtpd-gc-[id number] test normal Speech: speech normal Psych cooperative, affect normal, denies homicidal ideation and denies suicidal ideation Psych Narrative: Recognizes that her thought processes are not working as well as prior to the hemorrhagic CVA. She is calm and friendly. Appearance: appropriate Thought Content: No hallucination(s) Results Lab / Micro Data Result Diagrams: 08/01/22 05:32 08/01/22 05:32 Labs: Laboratory Results - last 24 hr 07/31/22 15:55: POC Glucose 94 07/31/22 20:26: POC Glucose 127 H 08/01/22 05:32: WBC 7.3, RBC 3.46 L, Hgb 10.9 L, Hct 32.4 L, MCV 93.6, MCH 31.5, MCHC 33.6, RDW Std Deviation 44.0 H, RDW Coeff of Carmelo 13.0, Plt Count 219, MPV 9.5, Immature Gran % (Auto) 0.300, Neut % (Auto) 47.1, Lymph % (Auto) 35.6, [place] % (Auto) 13.0 H, Eos % (Auto) 2.9, Baso % (Auto) 1.1 H, Absolute Neuts (auto) 3.4, Absolute Lymphs (auto) 2.58, Nucleated RBC % 0 08/01/22 05:32: Sodium 139, Potassium 3.7, Chloride 103, Carbon Dioxide 28.0, Anion Gap 8, BUN 15, Creatinine 0.64, Estim Creat Clear Calc 51.11, Est GFR (MDRD) Af Amer 118, Est GFR (MDRD) Non-Af 97, BUN/Creatinine Ratio 23.3 H, Glucose 104, Calcium 9.6, Phosphorus 3.8, Magnesium 1.7, Total Bilirubin 0.50, AST 17, ALT 24, Alkaline Phosphatase 68, Total Protein 7.1, Albumin 2.8 L, Globulin 4.3 H, Albumin/Globulin Ratio 0.7 L 08/01/22 06:27: POC Glucose 105 08/01/22 12:04: POC Glucose 103 Assessment & Plan Assessment/Plan (1) Debility: (2) Hemorrhagic stroke: (3) Hx of craniotomy: (4) Acute blood loss anemia: (5) Tactile extinction: (6) Left hemiparesis: (7) Cognitive dysfunction: (8) Diabetes mellitus, type 2: (9) Anxiety: (10) Depression: (11) Insomnia: (12) Hyperlipidemia: (13) Hypertension: (14) Chronic back pain: (15) Left breast mass: PLAN: Plan PLAN PT for gait stability OT for ADL's ST for evaluation Analgesics as needed Bowel protocol Fall precautions Assess for Anxiety/Depression GI prophylaxis -not necessary at this time. Patient denies epigastric pain and also denies history of peptic ulcer disease. DVT prophylaxis with Lovenox 40 mg subcu daily. - She had been started on this at [facility] prior to transfer to TCU. Follow up with Dr. Fink, neurosurgery, neurology and with [facility] to reschedule the L breast bx following DC from IP Rehab AM lab including CMP, CBC, Mag and Phos - all personally reviewed. Will add a HGBA1C. 1. Hold glargine tonight. 2. Decrease the Metformin to 500 mg BID. 3. Nursing states she had only 750 out since MN and not 4270......will attempt to figure out the discrepancy? 4. Supplement MAG to keep the mag around 2. 6. She is currently on lidocaine patches, Voltaren cream, tramadol, Lyrica and methocarbamol for back pain and all are scheduled. Change the Muscle relaxer to PRN........consider changing the Voltaren to a compounded cream containing baclofen, Voltaren and lidocaine. Will discuss with her in the AM. Obtain records from Dr. Fink-- any imaging of the back or nerve conduction studies. Also obtain a med list and a problem list. Charges/Coding Visit Charges Inpatient E&M: 58530 Init Hosp L3
[2022-08-01 14:32] LABS: Hemoglobin A1c 6.9 % (3.8-5.6)
--- NOTE | 2022-08-01 15:10 | CHAPLAIN ---
Type of Pastoral Visit ___ Initial Visit ___ Follow-up Visit ___ On-call Visit ___ General Patient Visit ___ Spiritual Assessment ___ Family Conference ___ Bereavement ___ Rapid Response ___ Code Blue ___ Other (describe below) Pastoral Care Referral From ___ Patient ___ Family ___ Nurse ___ Physician ___ Gear Generator Set Up Operator ___ Mechanical Project Engineer ___ Other (describe below) Sacrament/Intervention ___ Active listening ___ Anointing ___ Spiritism ___ Bereavement ___ Communion ___ Ketty exploration ___ ___ Life review ___ Prayer ___ Reconciliation ___ Sacrament of Sick ___ Supportive presence ___ Wedding ___ Other (describe below) Pastoral Comments patient was sleeping and did not disturb
[2022-08-01] MEDS: Magnesium Chloride 64 MG Delay Rel.Tablet 128 MG PO (16:56)
[2022-08-01] MEDS: metFORMIN (XR) 500 MG Tablet PO (16:56)
[2022-08-01 17:25] LABS: Bedside Glucose 83 mg/dL (74-106)
[2022-08-01 19:11] VITALS: BP 98/56; PULSE 82; RESP 17; TEMP 37; O2SAT 93
[2022-08-01 19:35] VITALS: PULSE 82; RESP 16; O2SAT 97
[2022-08-01 21:10] VITALS: BMI 31.3
[2022-08-01] MEDS: Bisacodyl 10 MG Suppository RC (22:04)
[2022-08-01 22:40] LABS: Bedside Glucose 90 mg/dL (74-106)
[2022-08-02] MEDS: Enoxaparin 40 MG/0.4 ML Syringe SC (06:29)
[2022-08-02] MEDS: Lidocaine 5% Patch 2 PATCH TOPICAL (06:33)
[2022-08-02 06:51] VITALS: O2SAT 93
[2022-08-02 06:51] LABS: Bedside Glucose 99 mg/dL (74-106)
[2022-08-02 06:53] VITALS: BMI 31.1
[2022-08-02 07:03] VITALS: BP 111/69; PULSE 78; RESP 16; TEMP 37; O2SAT 97
[2022-08-02] MEDS: DICLOFENAC SODIUM 100 GM GEL..GRAM. TOPICAL (07:37)
[2022-08-02] MEDS: Pregabalin 75 MG Capsule PO ×2 (07:37→20:18)
[2022-08-02] MEDS: amLODIPine 10 MG Tablet PO (07:44)
[2022-08-02] MEDS: Tamsulosin HCl 0.4 MG Capsule PO (07:44)
[2022-08-02] MEDS: Senna/Docusate Sodium 1 Tablet 2 TABLET PO (07:44)
[2022-08-02] MEDS: Magnesium Chloride 64 MG Delay Rel.Tablet 128 MG PO (07:44)
[2022-08-02] MEDS: Sertraline 100 MG Tablet PO (07:45)
[2022-08-02] MEDS: metFORMIN (XR) 500 MG Tablet PO ×2 (07:45→16:48)
[2022-08-02] MEDS: Empagliflozin 10 MG Tablet PO (07:45)
[2022-08-02] MEDS: Lisinopril 20 MG Tablet PO (07:45)
[2022-08-02] MEDS: Carvedilol 6.25 MG Tablet PO ×2 (07:45→16:47)
[2022-08-02] MEDS: buPROPion 75 MG Tablet PO ×2 (07:45→20:17)
[2022-08-02] MEDS: Acetaminophen 500 MG Tablet 1000 MG PO (07:48)
--- NOTE | 2022-08-02 10:07 | NURSING ---
removed two sutures from pts head. Pt tolerated well.
[2022-08-02 12:00] VITALS: BMI 31.3
--- NOTE | 2022-08-02 12:06 | PCM.RU.PYE ---
Admission Information Primary Diagnosis:: Post stroke debility Status Changes from Prescreening?: No changes Identified Actual Problem List:: Pain, ALteration in Cmfrt, Cognitve Impr/Memory Loss, Depression, Bowel, Constipation, Mobility Impaired, Self Care Deficit, Fluid Change-Dehydration and Alteration-Leisure Activ. Potential Problem List:: DVT, Bleeding, Infection, UTI, Aspiration, Falls, Skin Integrity and Depression Risk of Complications DVT: MONIK Pierre and - (She is on apixaban for history of atrial fibrillation.) Bleeding: Monitor Lab Values, Nursing to Teach Precautions for anti-coagulation therapy., Wound, if applicable, to be assessed every shift. and Stroke patients assessed for lethargy or change in status. Infection: Clinical Staff to Monitor for S/S of infection: and S/S of infection include fever, redness, warmth, etc. Urinary Tract Infection: Monitor for frequency, burning, discomfort, or incontinence. and Nursing will obtain urine sample for urinalysis and C&S when ordered. Aspiration: Clinical staff will monitor for coughing, drooling, congestion., Speech will evaluate swallowing and dsyphasia. and Nursing will monitor patient swallowing during meals. Falls: Patient will be evaluated for Fall Precautions and Patient will be placed on Fall Precautions as indicated per protocol. Skin Breakdown: Nursing will assess skin daily using assessment tool. and Nursing will place on Skin Breakdown Precautions as indicated. Pain: Clinical staff will assess patient's pain level per protocol., Medications will be given, if needed, and the pain level reassessed. and Other methods: Massage, distraction, decrease stimulus, etc. used PRN. Plan of Care Patient requires physician specializing in physical medicine and rehab oversight to provide close medical supervision of rehab issues including: Pain Management, Sleep Problems, Bowel and Bladder, Medical and co-morbidity Management, DVT prophylaxis, Rehabilitation Leadership and Coordination of treatment team Patient needs Physical Therapy: For a minimum of 1 hour and At least 5 out of 7 days Patient needs Physical Therapy to improve:: Mobility, Strengthening, Transfers, Stretching, ROM, Endurance, Stairs, Gait and Balance Patient needs Occupational Therapy: For a minimum of 1 hour and At least 5 out of 7 days Patient needs Occupational Therapy to improve ADL's incl.: Eating, Grooming, Bathing, Dressing, Toileting, Toilet transfers, Community Reintegration, Higher functioning activities, Household tasks, Adaptive Equipment, Splinting and Other activities as determined Patient requires speech therapy: For a minimum of 1 hour and At least 5 out of 7 days Patient requires speech therapy for: Swallowing, Cognition, Language Skills and Compensatory Strategies Patient requires 24/ Rehabilitation Nursing for: Pain Issues, Identifying and preventing risk factors, Monitoring and reporting current medical conditions, Assisting with ambulation, transfer, and all ADL's, Teaching patients about disease process and medications, Family teaching, Providing safe environment, Bowel and Bladder Issues, Skin integrity and Medication Management Patient needs Slicing Machine Feeder/ Case Management for: Discharge Planning, Arranging Home Equipment or Services and Family Interventions Patient needs Dietary and Nutrition Services for: Adequate Nutrition, Nutritional Supplements and Nutritional Education Goals Patient will remain: free from falls and or injury at time of discharge. Patient will perform bed mobility at: MOD I level of assist. Patient will complete transfers from bed to chair at: MOD I level of assist. Patient will ambulate: 100 feet, with LRD and - (500 feet without a device on various surfaces - supervision if outside. ) Patient will complete upper body dressing at: MOD I level of assist. Patient will complete lower body dressing at: MOD I level of assist. (With adaptive equipment as needed.) Patient will complete toileting at: MOD I level of assist. Patient will perform bathing at: MOD I level of assist. Patient will complete grooming at: MOD I level of assist. Patient will complete home management skills at: MOD I level of assist. Patient will achieve: - (1 curb step and 2 steps of different height with LRD at SBA to allow entrance to her home. ) Patient will have pain level of: of 3 or less Patient's skin will: remain intact Patient will receive: adequate nutrition. Discharge Planning Estimated Length of stay (days): 21 Anticipated D/C Destination: Home with Outpt Therapy Was Preadmission Assessment Accurate?: Yes
--- NOTE | 2022-08-02 12:16 | PCM.PROGNOTE ---
Subjective Subjective Rebeka was seen on team rounds today. Her Deniz was present in the room. Afebrile VSS-blood pressure is within goal. Has an occasional low blood pressure - the lowest being 93/43 at 1 PM on the . MAP was 59. BP last night at 7 PM was 98/56 with a MAP of 70. HR is WNL Maintaining appropriate oxygen saturation on RA Oral intake is poor -ate only 25 to 49% of her breakfast. Discussed with nursing - no problems that need addressed Reviewed the PT/OT/ST notes Medication list reviewed. Has not taken any Robaxin since it was changed to as needed. She has had only 1 dose of tramadol since admission and that was on 07/31/2022. The last 4 blood sugars have all been less than 100 but she is not hypoglycemic. Glargine was held last night and the metformin was decreased yesterday. Rebeka is c/o lightheadedness at times. The BUN/CREAT ratio is increased and the BP has been on the low side. She denies pain, shortness of breath, cough, palpitations, nausea/vomiting/abdominal pain, calf pain and dysuria. I discussed the chronic back pain with her and asked what she was taking at home and she told me 800 mg of Motrin once a day at night. She feels the Tylenol is taking the edge off. She has never been on Lyrica or Gabapentin in the past. She has pain in the R buttock and it radiates down the R leg. She list Advil as an allergy (rash) ......BUT, she tolerates name brand Motrin. She may be allergic to the dye used in Advil tabs. She tells me that when she had the first stroke she was on Coumadin. 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 She is no longer on an anticoagulant. Objective Data Objective Data Vital Signs: Vital Signs Temp Pulse Resp BP Pulse Ox O2 Del Method 98.6 F 78 16 111/69 97 Room Air 08/02/22 07:03 08/02/22 07:03 08/02/22 07:03 08/02/22 07:03 08/02/22 07:03 08/02/22 07:03 Oxygen Delivery Method Room Air Weight: 194 lb 3.636 oz Body Mass Index (BMI) 31.3 Intake & Output: Intake and Output for Last 24 Hours 07/31/22 08/01/22 08/02/22 23:59 23:59 23:59 Intake Total 680 / 680 740 / 940 860 / 860 Output Total 350 / 350 2000 / 2150 150 / 150 Balance 330 / 330 -1260 / -1210 710 / 710 Lab / Micro Data Result Diagrams: 08/01/22 05:32 08/01/22 05:32 Labs: Laboratory Results - last 24 hr 08/01/22 05:32: Hemoglobin A1c 6.9 H 08/01/22 12:04: POC Glucose 103 08/01/22 16:59: POC Glucose 83 08/01/22 22:18: POC Glucose 90 08/02/22 06:31: POC Glucose 99 Physical Exam Const alert and no apparent distress General Appearance: cooperative and well developed HEENT moist oral mucous membranes Resp normal respiratory effort, normal air movement and clear to auscultation bilaterally Effort and Inspection: Negative for tachypneic or respiratory distress Cardio regular rate, regular rhythm, S1 normal heart sound, S2 normal heart sound, no murmurs, no rub and no gallops Cardio Narrative: No ectopy GI normal to inspection, nondistended, normoactive bowel sounds, soft to palpation and non-tender GI Narrative: Soft, no guarding with palpation. Extremity no calf tenderness Extremity Narrative: Radial and dorsalis pedis pulses are 3/3 bilaterally. General Extremity: Negative for edema Skin Skin Narrative: No rashes and no skin breakdown. The incision in the right frontotemporal area secondary to craniotomy is intact with no radha-incisional erythema and no purulent discharge. Assessment & Plan Assessment/Plan (1) Debility: (2) Hemorrhagic stroke: (3) Hx of craniotomy: (4) Acute blood loss anemia: (5) Tactile extinction: (6) Left hemiparesis: (7) Cognitive dysfunction: (8) Diabetes mellitus, type 2: (9) Hypertension: (10) Chronic back pain: (11) Left breast mass: (12) Low BP: (13) Intermittent lightheadedness: PLAN: Plan 1. Decrease Lyrica to 75 mg nightly 2. Continue therapy 3. I discussed transitioning from sertraline to Cymbalta for treatment of both depression and chronic pain. She is agreeable to this so will DC sertraline and start Cymbalta 20 mg daily on 08/06/2022 to decrease risk for serotonin S. 4. DC lidocaine patches and Voltaren topical and start Celebrex once a day with a meal. 5. Hold Jardiance until she is eating better to prevent hypoglycemia. 6. Celebrex 100 mg p.o. twice daily 7. Check a Hemoccult stool -she has no history of peptic ulcer disease and tolerated 800 mg of ibuprofen daily prior to this most recent stroke. 8. Hold antihypertensives if the systolic is less than 110 and hold Coreg if the heart rate is less than 55. 9. Check orthostatic vital signs Charges/Coding Visit Charges Inpatient E&M: 84509 Subs Hosp L2
[2022-08-02 12:21] LABS: Bedside Glucose 97 mg/dL (74-106)
[2022-08-02 13:54] VITALS: BP 111/60; BP 113/61; BP 98/60; PULSE 72; PULSE 73; PULSE 77
--- NOTE | 2022-08-02 14:21 | CHAPLAIN ---
Type of Pastoral Visit _x__ Initial Visit ___ Follow-up Visit ___ On-call Visit ___ General Patient Visit ___ Spiritual Assessment ___ Family Conference ___ Bereavement ___ Rapid Response ___ Code Blue ___ Other (describe below) Pastoral Care Referral From _x__ Patient ___ Family ___ Nurse ___ Physician ___ Power Chisel Operator ___ Electrical Tech/Project Manager ___ Other (describe below) Sacrament/Intervention _x__ Active listening ___ Anointing ___ Episcopalian ___ Bereavement ___ Communion ___ Ketty exploration ___ _x__ Life review ___ Prayer ___ Reconciliation ___ Sacrament of Sick _x__ Supportive presence ___ Wedding ___ Other (describe below) Pastoral Comments at first attempt today to visit the staff was engaged in a care conference and pt was not availabe; patient was just heading into the bathroom on the second attempt to visit; spouse was in room and he engaged in conversation which led to much life review; spouse is happy with how pt is doing and that he is so close to this facility; pt has evidence of thoughtful friends and family with many gifts and cards in room; spouse says that she has great support; as patient continued to be detained, the visit ended with a promise to return on another day
--- NOTE | 2022-08-02 15:13 | CASEMGMT ---
Social Work Team meeting held today with pt and present. Pt's progress in PT/OT/ST were discussed. Pt and team feel pt is showing improvement and would benefit from continued stay on Rehab Unit. SW explained NRD with insurance is 08/03 and continued stay is not gauranteed. Pt plans to return home with her at time of discharge. SW will continue to follow for discharge planning. Treatment plan to continue at this time and will plan to reteam next week. TERRENCE Stack
[2022-08-02] MEDS: Celecoxib 100 MG Capsule PO (16:47)
[2022-08-02 17:10] LABS: Bedside Glucose 92 mg/dL (74-106)
[2022-08-02 19:45] VITALS: BP 110/60; PULSE 76; RESP 16; TEMP 36.7; O2SAT 98
[2022-08-02 20:15] VITALS: O2SAT 98
[2022-08-02 21:40] LABS: Bedside Glucose 128 mg/dL (74-106)
[2022-08-03] MEDS: Enoxaparin 40 MG/0.4 ML Syringe SC (05:56)
[2022-08-03 06:00] VITALS: BMI 30.8
[2022-08-03 07:05] LABS: Bedside Glucose 113 mg/dL (74-106)
[2022-08-03 07:15] VITALS: O2SAT 97
[2022-08-03 08:13] VITALS: BP 114/74; PULSE 84; RESP 17; TEMP 37.2; O2SAT 94
[2022-08-03] MEDS: Senna/Docusate Sodium 1 Tablet 2 TABLET PO ×2 (08:31→21:12)
[2022-08-03] MEDS: Magnesium Chloride 64 MG Delay Rel.Tablet 128 MG PO (08:32)
[2022-08-03] MEDS: buPROPion 75 MG Tablet PO ×2 (08:32→21:14)
[2022-08-03] MEDS: Tamsulosin HCl 0.4 MG Capsule PO (08:32)
[2022-08-03] MEDS: Celecoxib 100 MG Capsule PO ×2 (08:32→17:05)
[2022-08-03] MEDS: Carvedilol 6.25 MG Tablet PO ×2 (08:32→17:05)
[2022-08-03] MEDS: metFORMIN (XR) 500 MG Tablet PO ×2 (08:32→17:04)
[2022-08-03] MEDS: amLODIPine 10 MG Tablet PO (08:33)
[2022-08-03] MEDS: Lisinopril 20 MG Tablet 10 MG PO (10:50)
[2022-08-03 11:26] LABS: Bedside Glucose 111 mg/dL (74-106)
[2022-08-03 13:40] VITALS: BMI 30.8
[2022-08-03 16:30] LABS: Bedside Glucose 93 mg/dL (74-106)
[2022-08-03 19:00] VITALS: BP 118/62; PULSE 80; RESP 18; TEMP 36.9; O2SAT 94
[2022-08-03 21:00] VITALS: PULSE 80; RESP 18; O2SAT 94; BMI 30.8
[2022-08-03] MEDS: traMADol 50 MG Tablet PO (21:12)
[2022-08-03] MEDS: Pregabalin 75 MG Capsule PO (21:13)
[2022-08-03 22:10] LABS: Bedside Glucose 100 mg/dL (74-106)
--- NOTE | 2022-08-04 01:24 | NURSING ---
pt iesha at 0030, to check on pt and pt showed staff a towel with light mejia colored spots noted. pt stated that earlier she felt like her head was wet on the rt side near her temporal incision. several spots were noted on the towel. no obvious drainage was noted when staff looked at the incisions . will continue to monitor
[2022-08-04 06:00] VITALS: BMI 30.7
[2022-08-04] MEDS: Enoxaparin 40 MG/0.4 ML Syringe SC (06:10)
[2022-08-04 07:36] LABS: Bedside Glucose 134 mg/dL (74-106)
--- NOTE | 2022-08-04 07:39 | NURSING ---
0600 staff in room to assist pt with adls and pt reported that her head felt wet again. staff noted a thick creamy yellow colored drainage coming from the top of the pt head. the drainage had run down the side of the pt head toward her rt ear and back along the incision. staff obtained a culture and sent it to the lab. pt head was cleaned with normal saline. it was noted that the pt had a softened area approximately the size of a nickel that would ooze drainage with slight pressure.
[2022-08-04 09:23] VITALS: BP 103/62; PULSE 84; RESP 18; TEMP 36.7; O2SAT 93
[2022-08-04] MEDS: metFORMIN (XR) 500 MG Tablet PO ×2 (09:24→17:02)
[2022-08-04] MEDS: Celecoxib 100 MG Capsule PO ×2 (09:24→17:02)
[2022-08-04] MEDS: Tamsulosin HCl 0.4 MG Capsule PO (09:25)
[2022-08-04] MEDS: Lisinopril 20 MG Tablet 10 MG PO (09:25)
[2022-08-04] MEDS: amLODIPine 10 MG Tablet PO (09:25)
[2022-08-04] MEDS: Magnesium Chloride 64 MG Delay Rel.Tablet 128 MG PO (09:25)
[2022-08-04] MEDS: buPROPion 75 MG Tablet PO ×2 (09:25→21:34)
[2022-08-04] MEDS: Senna/Docusate Sodium 1 Tablet 2 TABLET PO ×2 (09:30→21:34)
[2022-08-04 13:15] LABS: Bedside Glucose 111 mg/dL (74-106)
[2022-08-04 16:05] VITALS: BMI 30.7
--- NOTE | 2022-08-04 16:07 | NURSING ---
Notified Dr. Padilla of wound culture results of rare gram positive cocci and 1+ wbc from pt head incision. Orders received.
[2022-08-04] MEDS: Carvedilol 6.25 MG Tablet PO (17:03)
[2022-08-04] MEDS: Acetaminophen 500 MG Tablet 1000 MG PO (17:04)
[2022-08-04] MEDS: traMADol 50 MG Tablet PO (17:04)
[2022-08-04 17:46] LABS: Bedside Glucose 110 mg/dL (74-106)
--- NOTE | 2022-08-04 17:48 | NURSING ---
Reviewed and agree with CHEMISTRY FACULTY MEMBER assessment.
[2022-08-04 19:48] VITALS: BP 117/67; PULSE 74; RESP 18; TEMP 36.4; O2SAT 94
[2022-08-04 21:30] VITALS: O2SAT 94
--- NOTE | 2022-08-04 21:30 | NURSING ---
Pt alert and oriented this evening, states she is tired, did not sleep well last evening.No drainage noted on towel/pillowcase. Oxygen already on at 2L this evening.
[2022-08-04] MEDS: Cephalexin 500 MG Capsule PO (21:34)
[2022-08-04] MEDS: Pregabalin 75 MG Capsule PO (21:34)
[2022-08-04 22:20] LABS: Bedside Glucose 104 mg/dL (74-106)
[2022-08-05] MEDS: Enoxaparin 40 MG/0.4 ML Syringe SC (06:35)
[2022-08-05] MEDS: Cephalexin 500 MG Capsule PO ×3 (06:38→21:51)
[2022-08-05 07:10] LABS: Bedside Glucose 112 mg/dL (74-106)
[2022-08-05 07:54] VITALS: BP 103/63; PULSE 77; RESP 15; TEMP 36.6; O2SAT 96
[2022-08-05] MEDS: Celecoxib 100 MG Capsule PO ×2 (08:00→16:44)
[2022-08-05] MEDS: Tamsulosin HCl 0.4 MG Capsule PO (08:01)
[2022-08-05] MEDS: Magnesium Chloride 64 MG Delay Rel.Tablet 128 MG PO (08:01)
[2022-08-05] MEDS: metFORMIN (XR) 500 MG Tablet PO ×2 (08:01→16:44)
[2022-08-05] MEDS: Lisinopril 20 MG Tablet 10 MG PO (08:02)
[2022-08-05] MEDS: amLODIPine 10 MG Tablet PO (08:02)
[2022-08-05] MEDS: buPROPion 75 MG Tablet PO ×2 (08:03→21:51)
[2022-08-05] MEDS: Senna/Docusate Sodium 1 Tablet 2 TABLET PO (08:12)
[2022-08-05 11:49] VITALS: BMI 30.7
[2022-08-05 12:10] LABS: Bedside Glucose 107 mg/dL (74-106)
[2022-08-05] MEDS: DULAGLUTIDE 4.5 MG/0.5 ML SQ (13:39)
[2022-08-05] MEDS: Carvedilol 6.25 MG Tablet PO (16:44)
[2022-08-05 17:00] LABS: Bedside Glucose 91 mg/dL (74-106)
[2022-08-05 21:44] VITALS: BP 115/67; PULSE 75; RESP 17; TEMP 37.3; O2SAT 95
[2022-08-05] MEDS: Acetaminophen 500 MG Tablet 1000 MG PO (21:51)
[2022-08-05] MEDS: Pregabalin 75 MG Capsule PO (21:51)
[2022-08-05 21:55] VITALS: BMI 30.7
[2022-08-05 22:35] LABS: Bedside Glucose 100 mg/dL (74-106)
[2022-08-06] MEDS: Cephalexin 500 MG Capsule PO ×3 (06:38→21:02)
[2022-08-06] MEDS: Enoxaparin 40 MG/0.4 ML Syringe SC (06:38)
[2022-08-06 07:11] LABS: Bedside Glucose 108 mg/dL (74-106)
[2022-08-06 07:42] VITALS: BP 109/65; PULSE 80; RESP 18; TEMP 36.7; O2SAT 96
[2022-08-06] MEDS: DULoxetine Hcl 20 MG Capsule PO (08:24)
[2022-08-06] MEDS: Celecoxib 100 MG Capsule PO ×2 (08:24→17:28)
[2022-08-06] MEDS: metFORMIN (XR) 500 MG Tablet PO (08:24)
[2022-08-06] MEDS: buPROPion 75 MG Tablet PO ×2 (08:26→21:01)
[2022-08-06] MEDS: amLODIPine 10 MG Tablet PO (08:26)
[2022-08-06] MEDS: Senna/Docusate Sodium 1 Tablet 2 TABLET PO (08:26)
[2022-08-06] MEDS: Magnesium Chloride 64 MG Delay Rel.Tablet 128 MG PO (08:26)
[2022-08-06] MEDS: Tamsulosin HCl 0.4 MG Capsule PO (08:26)
--- NOTE | 2022-08-06 10:48 | PCM.PROGNOTE ---
Subjective Subjective Day #3 Keflex for cellulitis of the scalp Afebrile VSS Maintaining appropriate oxygen saturation on RA Oral intake is good Blood sugars are well controlled with no hypoglycemia but, appetite and intake vary. Some BS's in the 90's and if she does not eat then I am worried she will get hypoglycemic so will adjust the medications. Weight is down about 10 lbs since admission and down 37 pounds since the beginning of June. No diagnosis of malnutrition from the photo optics technician? Will discuss with photo optics technician. She is eating 75-100% of some meals and 49-75% of others. Discussed with nursing - no problems that need addressed. She is sleeping well. Reviewed the PT/OT/ST notes Medication list reviewed. Stool is heme +. There was drainage form the incision on the R side of the skull. It was cultured and the culture is growing 2+ S. Aureus which is sensitive to Oxacillin. she has been on Keflex and this is the third day. The MSSA is wilcox sensitive. Rebeka denies any pain with palpation of the incision. She denies cephalgia. Rebeka denies shortness of breath, palpitations, chest pain, calf pain, dysuria and lightheadedness. She is eating well and sleeping well. Objective Data Objective Data Vital Signs: Vital Signs Temp Pulse Resp BP Pulse Ox O2 Del Method O2 Flow Rate 98.0 F 80 18 109/65 96 Room Air 2 08/06/22 07:42 08/06/22 07:42 08/06/22 07:42 08/06/22 07:42 08/06/22 07:42 08/06/22 07:42 08/05/22 07:54 Oxygen Flow Rate (L/min) 2 Oxygen Delivery Method Room Air Weight: 190 lb 11.198 oz Body Mass Index (BMI) 30.7 Intake & Output: Intake and Output for Last 24 Hours 08/04/22 08/05/22 08/06/22 22:59 23:59 23:59 Intake Total 360 / 360 Balance 360 / 360 Lab / Micro Data Result Diagrams: 08/01/22 05:32 08/01/22 05:32 Labs: Laboratory Results - last 24 hr 08/05/22 11:46: POC Glucose 107 H 08/05/22 16:41: POC Glucose 91 08/05/22 21:47: POC Glucose 100 08/06/22 06:36: POC Glucose 108 H Micro: Microbiology 08/04/22 05:48 Exudate Gram Stain - Final 08/04/22 05:48 Exudate Wound Culture - Final Staphylococcus aureus 08/02/22 18:05 Stool Stool Occult Blood (PREMA) - Final Occult Blood Positive Physical Exam Const alert, oriented x3 and no apparent distress Constitutional Narrative: Very pleasant. Lying flat in bed with no SOB. General Appearance: cooperative HEENT moist oral mucous membranes HEENT Narrative: The scalp incision on the R side of the head is healing. The cassy have been removed and the incision is intact. There is no discharge that can be expressed today. There are a few scabs that have not fallen off yet. There is no radha-incisional erythema. There is no pain with palpation. There is a small fluid accumulation in one spot which I suspect is a seroma. No fluid could be expressed from this area. MMM Eyes PERRL and EOMs intact bilaterally Eyes Narrative: No visual loss. She has visual extinction with the left eye. The left eye appears bigger than the R. Neck supple, No nodes and no carotid bruits General: trachea midline Resp clear to auscultation bilaterally Effort and Inspection: Negative for tachypneic or respiratory distress Cardio regular rate, regular rhythm and no gallops Cardio Narrative: No ectopy GI normal to inspection, nondistended, normoactive bowel sounds, soft to palpation and non-tender GI Narrative: Soft, no guarding with palpation. Extremity no calf tenderness Extremity Narrative: Radial and dorsalis pedis pulses are 3/3 bilaterally. General Extremity: Negative for edema Skin no jaundice and no petechiae Skin Narrative: No rashes and no skin breakdown. The incision in the right frontotemporal area secondary to craniotomy is intact with no radha-incisional erythema and no purulent discharge. Neuro CN's II-XII intact bilaterally Neuro Narrative: The L eye is a little larger than the R.......may have a little lid lag of the L upper eye lid but, she can squeeze both eyes tightly shut. No drift with any of the 4 extremities. She has both tactile and visual neglect/extinction. Coordination / Balance: [id number] test normal and [id number] test normal Speech: speech normal Psych cooperative, affect normal, denies homicidal ideation and denies suicidal ideation Psych Narrative: Recognizes that her thought processes are not working as well as prior to the hemorrhagic CVA. She is calm and friendly. Appearance: appropriate Thought Content: No hallucination(s) Assessment & Plan Assessment/Plan (1) Debility: PLAN: Continue therapy. (2) Hemorrhagic stroke: (3) Hx of craniotomy: (4) Acute blood loss anemia: PLAN: Hemoglobin is stable but the stool is heme positive. Will add Protonix 40 mg once a day. (5) Diabetes mellitus, type 2: PLAN: Blood sugars are under excellent control with no hypoglycemia. (6) Hypertension: PLAN: Well-controlled. (7) Chronic back pain: PLAN: No change in chronic back pain with decrease in the Lyrica to 75 mg nightly rather than twice daily. May be able to discontinue prior to discharge. (8) Left breast mass: PLAN: Will need biopsy as an outpatient. (9) Low BP: PLAN: Resolved. (10) Abscess or cellulitis of scalp: PLAN: Finish 7 days of Keflex for MSSA cellulitis of the incision. PLAN: Plan 1. Recheck a CBC with differential and BMP on Saturday. 2. Continue to hold glargine at at bedtime. Blood sugars are well controlled on Jardiance, Trulicity and metformin. Decrease the metformin to 250 mg p.o. twice daily........ in light of BS's in the 90's. Decrease the Accu-Cheks to bid 3. Doing well in therapyand making good progress. Charges/Coding Visit Charges Inpatient E&M: 18340 Subs Hosp L2
[2022-08-06 11:26] LABS: Bedside Glucose 97 mg/dL (74-106)
[2022-08-06 12:19] VITALS: BMI 30.7
[2022-08-06] MEDS: Pantoprazole Sodium 40 MG Tablet PO (14:55)
[2022-08-06 16:41] LABS: Bedside Glucose 101 mg/dL (74-106)
[2022-08-06] MEDS: metFORMIN HCl 500 MG Tablet 250 MG PO (17:29)
[2022-08-06] MEDS: Carvedilol 6.25 MG Tablet PO (17:30)
[2022-08-06 19:23] VITALS: BP 143/84; PULSE 82; RESP 16; TEMP 37.2; O2SAT 95
[2022-08-06] MEDS: Pregabalin 75 MG Capsule PO (21:01)
--- NOTE | 2022-08-07 03:50 | NURSING ---
Reviewed and agree with Rolf FONTANEZ, documentation and assessment charting.
[2022-08-07] MEDS: Cephalexin 500 MG Capsule PO ×3 (05:10→20:36)
[2022-08-07] MEDS: Enoxaparin 40 MG/0.4 ML Syringe SC (05:10)
[2022-08-07 06:00] VITALS: BMI 30.7
[2022-08-07 07:15] LABS: Bedside Glucose 126 mg/dL (74-106)
[2022-08-07 07:20] VITALS: BP 143/81; PULSE 83; RESP 16; TEMP 36.3; O2SAT 95
[2022-08-07] MEDS: Lisinopril 20 MG Tablet 10 MG PO (08:10)
[2022-08-07] MEDS: metFORMIN HCl 500 MG Tablet 250 MG PO ×2 (08:10→16:45)
[2022-08-07] MEDS: Pantoprazole Sodium 40 MG Tablet PO (08:10)
[2022-08-07] MEDS: buPROPion 75 MG Tablet PO ×2 (08:10→20:37)
[2022-08-07] MEDS: Senna/Docusate Sodium 1 Tablet 2 TABLET PO ×2 (08:10→20:36)
[2022-08-07] MEDS: Magnesium Chloride 64 MG Delay Rel.Tablet 128 MG PO (08:10)
[2022-08-07] MEDS: DULoxetine Hcl 20 MG Capsule PO (08:11)
[2022-08-07] MEDS: Carvedilol 6.25 MG Tablet PO ×2 (08:11→16:45)
[2022-08-07] MEDS: amLODIPine 10 MG Tablet PO (08:11)
[2022-08-07] MEDS: Tamsulosin HCl 0.4 MG Capsule PO (08:11)
[2022-08-07] MEDS: Celecoxib 100 MG Capsule PO (08:15)
--- NOTE | 2022-08-07 09:19 | PN_ITS ---
Subjective Subjective Day #4 Keflex Afebrile - but, she is on ATC Tylenol VSS-blood pressure is mildly elevated since last evening. Current blood pressure is 143/81. Pulse is elevated in the low 100s. Maintaining appropriate oxygen saturation on RA Oral intake is good Discussed with nursing - Night nurses reported she had a lot of drainage last night........they saved the pillow case and it appears to be serous. They also reported that the R upper eyelid is swollen. Reviewed the PT/OT/ST notes Medication list reviewed. Rebeka's only complaint today is that the incision is sore today where there is some swelling/mushiness. She denies any eye pain and has no DC from the R eye. Denies chills and has not had a fever. No night sweats. No cough and no ST. Denies lightheadedness and has no FRANKEL. Objective Data Objective Data Vital Signs: Vital Signs Temp Pulse Resp BP Pulse Ox O2 Del Method O2 Flow Rate 97.3 F L 83 16 143/81 H 95 Room Air 2 08/07/22 07:20 08/07/22 07:20 08/07/22 07:20 08/07/22 07:20 08/07/22 07:20 08/07/22 07:20 08/06/22 21:05 Oxygen Flow Rate (L/min) 2 Oxygen Delivery Method Room Air Weight: 190 lb 11.198 oz Body Mass Index (BMI) 30.7 Intake & Output: Intake and Output for Last 24 Hours 08/05/22 08/06/22 08/07/22 23:59 23:59 23:59 Intake Total 1360 / 1360 200 / 200 Output Total 600 / 600 350 / 350 Balance 760 / 760 -150 / -150 Medical Nutrition Assessment Dietitian: Malnutrition Criteria Met Start: 08/06/22 15:55 Freq: Status: Active Protocol: Document 08/06/22 16:44 LO (Rec: 08/06/22 16:44 LO [id number]) Nutrition Malnutrition Evidence of Malnutrition Exists Yes Malnutrition (severe): Chronic Clinical Problem Chronic Disease or Condition Related Malnutrition Etiology related to recent CVA Signs/Symptoms as evidenced by 36.4lbs (19%) weight loss in ~1.5months and <50%PO intake of meals for ~1 month prior to admission. 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 Problem Unintended Weight Loss Etiology related to unknown etiology Signs/Symptoms as evidenced by 7.1lbs (3.5%) weight loss in 1 week. Status Inactive Problem Recommendation Dietitian Recommendations/Changes Continue CCD, Cardiac diet to manage medical conditions. RD will order Magic Cup BID to provide supplemental energy. Lab / Micro Data Result Diagrams: 08/01/22 05:32 08/01/22 05:32 Labs: Laboratory Results - last 24 hr 08/06/22 11:02: POC Glucose 97 08/06/22 16:20: POC Glucose 101 08/07/22 06:53: POC Glucose 126 H Micro: Microbiology 08/04/22 05:48 Exudate Gram Stain - Final 08/04/22 05:48 Exudate Wound Culture - Final Staphylococcus aureus 08/02/22 18:05 Stool Stool Occult Blood (PREMA) - Final Occult Blood Positive Physical Exam Const alert, oriented x3 and no apparent distress Constitutional Narrative: appropriate. General Appearance: cooperative HEENT moist oral mucous membranes Eyes PERRL and EOMs intact bilaterally Eyes Narrative: there is no injection of the conjunctiva and no mattering of the eyelids. There is no DC from the eye. She has swelling of the R mandaeism and of the R upper lid. Resp clear to auscultation bilaterally Cardio regular rate, regular rhythm and no gallops Rate: tachycardic GI normal to inspection, nondistended, normoactive bowel sounds, soft to palpation and non-tender Extremity no calf tenderness General Extremity: edema bilateral (ankles) Skin Wound Narrative: There is some erythema in the radha-incisional area today. The mushy area in the temporoparietal area of the incision is bigger today and she is having some pain with palpation today. I can not visualize any drainage at this time. There are a few scabs. There is no increased warmth to touch. Drainage on the sheets/pillowcase is thin and serosanguineous. Does not appear purulent. There seems to be a depression in the skull when I press on the are of Fluctuance? Neuro CN's II-XII intact bilaterally Assessment & Plan Assessment/Plan (1) Debility: PLAN: Continue therapy. (2) Hemorrhagic stroke: (3) Hx of craniotomy: (4) Acute blood loss anemia: (5) Abscess or cellulitis of scalp: PLAN: There is increased drainage from the incision overnight and there is now some erythema. Swelling/fluctuance is increased today and she is having some pain with palpation of the area (but, she was laying on her R side when I entered the room and did not seem to be in any discomfort.) Will check a ESR, CRP, CBC with diff and check a nasal swab for MRSA) If it starts to drain again will do an MRSA PCR on the drainage. The culture grew MSSA but, we may have missed a colony of MRSA. Will also check a CT head without contrast to see if there is any significant fluid to drain and if there is osteomyelitis present. Continue Keflex for now and await the results of the lab and CT scan. PLAN: Plan 1. Continue therapy. Charges/Coding Visit Charges Inpatient E&M: 92747 Subs Hosp L2
--- NOTE | 2022-08-07 09:25 | CT_ITS ---
STUDY: CT BRAIN WITHOUT CONTRAST REASON FOR EXAM: Female, 66 years old. Previous ICH and craniotomy. RADIATION DOSAGE (If Supplied By Facility): CTDIvol = ( 47.06 ) mGy, DLP = ( 907.97 ) mGycm TECHNIQUE: Transaxial CT imaging of the brain was performed without administration of intravenous contrast material. Individualized dose optimization techniques were used for this CT. COMPARISON: 07/01/2022. FINDINGS: Since the previous study, patient has undergone right temporal craniotomy. There is a right scalp hematoma. The previously described 63 mm intraparenchymal hemorrhage within the right temporal lobe has resolved, there is residual low-density edema present with some localized mass effect and subtle right to left midline shift of approximately 4.8 mm. This also has improved since the previous study.. There is evidence of acute on chronic right subdural hematoma immediately underneath the surgical site with maximum thickness of 0.36 cm. There is no evidence of an air-fluid level within the brain to suspect an abscess. There is however subtle isodensity to brain within the low-density edema suggesting there may be underlying mass. A contrasted study would be needed for further evaluation. Ventricles and cisterns are of normal size and caliber. The left cerebral hemisphere is normal for age. Cerebellum is also normal for age. CT/Brain/Head without Contrast IMPRESSION: Previously noted large right temporal intracranial hemorrhage has resolved. There is residual low-density edema with a subtle isodense to brain area within the low-density edema which may represent an underlying mass lesion. There is mass effect and subtle right to left midline shift of 3.6 mm. Patient is undergone a right temporal craniotomy since the previous study. There is associated scalp hematoma and immediately under the craniotomy site is a thin rim of acute on chronic subdural hematoma with maximum thickness of 4.[address] evidence of intracranial abscess Left cerebral hemisphere and cerebellum normal for age Electronically Signed: Moise Andrea MD at 10:29 EDT ,
[2022-08-07 09:56] LABS: Erythrocyte Sedimentation Rate 55 mm/hr (0-30)
[2022-08-07 09:58] LABS: Absolute Lymphocyte Count 2.16 X10^3/uL (0.83-4.51); Absolute Neutrophil Count 4.6 X10^3/uL (2.0-7.7); Basophil# 0.05 X10^3/uL; Basophil% 0.6 % (0-1); Eosinophil# 0.12 X10^3/uL; Eosinophils% 1.6 % (0-5); Hematocrit 35.8 % (37-47); Hemoglobin 11.9 g/dL (12.0-15.0); Lymphocyte # 2.16 X10^3/ul (0.83-4.51); Mean Corp Hgb Conc 33.2 g/dL (32-36); Mean Corpuscular Hgb 31.5 pg (27.0-32.0); Mean Corpuscular Volume 94.7 fL (81-99); Mean Platelet Vol. 9.9 fl (6.2-12.0); Monocyte# 0.75 X10^3/uL; Monocyte% 9.7 % (0-10); NRBC Flagged by Analyzer 0 % (0-5); Neutrophil # 4.62 X10^3/uL (2.7-7.7); Neutrophil % 59.8 % (47-70); Platelet Count 306 K/mm3 (150-450); RBC Distribution Width CV 13.2 % (11.6-14.6); RBC Distribution Width SD 45.9 fl (35.1-43.9); Red Blood Count 3.78 M/mm3 (4.2-5.4); White Blood Count 7.7 K/mm3 (4.4-11.0)
[2022-08-07] MEDS: Acetaminophen 500 MG Tablet 1000 MG PO (10:11)
[2022-08-07 12:08] LABS: M R Staph aureus DNA By PCR Negative (Negative); Probe Check PASS; Specimen Processing Control PASS
[2022-08-07 13:41] VITALS: BMI 30.7
[2022-08-07 17:21] LABS: Bedside Glucose 139 mg/dL (74-106)
[2022-08-07 19:46] VITALS: BP 116/69; PULSE 76; RESP 16; TEMP 36.8; O2SAT 93
[2022-08-07 20:25] VITALS: BMI 30.7
[2022-08-07] MEDS: Pregabalin 75 MG Capsule PO (20:35)
[2022-08-07 22:00] VITALS: PULSE 76; RESP 15
[2022-08-08] MEDS: Enoxaparin 40 MG/0.4 ML Syringe SC (05:54)
[2022-08-08] MEDS: Cephalexin 500 MG Capsule PO ×3 (05:54→20:44)
[2022-08-08 05:57] LABS: Absolute Neutrophil Count 2.5 X10^3/uL (2.0-7.7); Basophil# 0.06 X10^3/uL; Basophil% 1.1 % (0-1); Eosinophil# 0.19 X10^3/uL; Eosinophils% 3.4 % (0-5); Hematocrit 33.9 % (37-47); Lymphocyte % 37.4 % (19-41); Mean Corp Hgb Conc 32.4 g/dL (32-36); Mean Corpuscular Hgb 30.5 pg (27.0-32.0); Mean Corpuscular Volume 93.9 fL (81-99); Mean Platelet Vol. 9.8 fl (6.2-12.0); Monocyte# 0.76 X10^3/uL; Monocyte% 13.5 % (0-10); NRBC Flagged by Analyzer 0 % (0-5); Neutrophil # 2.49 X10^3/uL (2.7-7.7); Neutrophil % 44.4 % (47-70); Platelet Count 298 K/mm3 (150-450); RBC Distribution Width CV 13.2 % (11.6-14.6); RBC Distribution Width SD 45.1 fl (35.1-43.9); Red Blood Count 3.61 M/mm3 (4.2-5.4); White Blood Count 5.6 K/mm3 (4.4-11.0)
[2022-08-08 06:31] LABS: Bedside Glucose 113 mg/dL (74-106)
[2022-08-08 07:31] VITALS: BP 101/62; PULSE 83; RESP 17; TEMP 37.3; O2SAT 100
[2022-08-08] MEDS: Lisinopril 20 MG Tablet 10 MG PO (08:12)
[2022-08-08] MEDS: DULoxetine Hcl 20 MG Capsule PO (08:13)
[2022-08-08] MEDS: amLODIPine 10 MG Tablet PO (08:13)
[2022-08-08] MEDS: Pantoprazole Sodium 40 MG Tablet PO (08:13)
[2022-08-08] MEDS: Carvedilol 6.25 MG Tablet PO ×2 (08:13→17:48)
[2022-08-08] MEDS: buPROPion 75 MG Tablet PO ×2 (08:13→20:44)
[2022-08-08] MEDS: Tamsulosin HCl 0.4 MG Capsule PO (08:13)
[2022-08-08] MEDS: Magnesium Chloride 64 MG Delay Rel.Tablet 128 MG PO (08:13)
[2022-08-08] MEDS: metFORMIN HCl 500 MG Tablet 250 MG PO ×2 (08:13→17:48)
--- NOTE | 2022-08-08 14:52 | CHAPLAIN ---
Type of Pastoral Visit ___ Initial Visit _x__ Follow-up Visit ___ On-call Visit ___ General Patient Visit ___ Spiritual Assessment ___ Family Conference ___ Bereavement ___ Rapid Response ___ Code Blue ___ Other (describe below) Pastoral Care Referral From __x_ Patient ___ Family ___ Nurse ___ Physician ___ Community Development Coordinator ___ Body Shop Manager ___ Other (describe below) Sacrament/Intervention _x__ Active listening ___ Anointing ___ Pentecostal ___ Bereavement ___ Communion ___ Ketty exploration ___ _x__ Life review ___ Prayer ___ Reconciliation ___ Sacrament of Sick _x__ Supportive presence ___ Wedding ___ Other (describe below) Pastoral Comments on this visit the patient is available; pt talks about her good recovery, great support from friends, and hope for a return home soon and better days ahead; pt is looking forward to care team conference with cooperation and direction for going home; pt admits that this has caused her to slow down and to appreciate and evaluate her life activities; pt does not indicate needs or concerns for further support
[2022-08-08 16:56] LABS: Bedside Glucose 93 mg/dL (74-106)
[2022-08-08 17:00] VITALS: BMI 30.7
[2022-08-08 19:45] VITALS: BP 122/72; PULSE 75; RESP 18; TEMP 37.2; O2SAT 95
[2022-08-08 20:09] VITALS: BMI 30.7
[2022-08-08] MEDS: Pregabalin 75 MG Capsule PO (20:44)
[2022-08-08] MEDS: Senna/Docusate Sodium 1 Tablet 2 TABLET PO (20:45)
[2022-08-09] MEDS: Enoxaparin 40 MG/0.4 ML Syringe SC (05:54)
[2022-08-09] MEDS: Cephalexin 500 MG Capsule PO ×3 (05:54→22:21)
[2022-08-09 07:00] LABS: Bedside Glucose 125 mg/dL (74-106)
[2022-08-09 08:07] VITALS: BP 101/51; PULSE 82; RESP 16; TEMP 37.3; O2SAT 96
[2022-08-09] MEDS: Pantoprazole Sodium 40 MG Tablet PO (08:08)
[2022-08-09] MEDS: metFORMIN HCl 500 MG Tablet 250 MG PO ×2 (08:08→16:15)
[2022-08-09] MEDS: DULoxetine Hcl 20 MG Capsule PO (08:08)
[2022-08-09] MEDS: Magnesium Chloride 64 MG Delay Rel.Tablet 128 MG PO (08:08)
[2022-08-09] MEDS: amLODIPine 10 MG Tablet PO (08:08)
[2022-08-09] MEDS: buPROPion 75 MG Tablet PO ×2 (08:09→22:21)
[2022-08-09] MEDS: Tamsulosin HCl 0.4 MG Capsule PO (08:09)
[2022-08-09] MEDS: Carvedilol 6.25 MG Tablet PO ×2 (08:11→16:15)
--- NOTE | 2022-08-09 12:03 | PN_ITS ---
Subjective Subjective Day #5 Keflex Afebrile VSS Maintaining appropriate oxygen saturation on RA Oral intake is good Blood sugar control is very good. All blood sugars are under 140 with no hypoglycemia. Discussed with nursing - no problems that need addressed. Reviewed the PT/OT/ST notes Medication list reviewed. Rebeka denies lightheadedness, vertigo, CP, SOB at rest, SOB with exertion, cough, nausea, vomiting, abd pain, diarrhea, constipation, dysuria, calf pain and ankle swelling. We discussed sx of depression and anxiety. She feels she is doing well and does not need any adjustments to her meds at this time. She has a good appetite, she is sleeping well, she is not irritable and she is more optimistic about her r ecovery since she sees how well she is doing. She is very pleasant with staff and she never refuses therapy. Objective Data Objective Data Vital Signs: Vital Signs Temp Pulse Resp BP Pulse Ox O2 Del Method O2 Flow Rate 99.1 F 82 16 101/51 L 96 Room Air 2 08/09/22 08:07 08/09/22 08:07 08/09/22 08:07 08/09/22 08:07 08/09/22 08:07 08/09/22 08:07 08/07/22 22:00 Oxygen Flow Rate (L/min) 2 Oxygen Delivery Method Room Air Weight: 191 lb 5.78 oz Body Mass Index (BMI) 30.7 Intake & Output: Intake and Output for Last 24 Hours 08/07/22 08/08/22 08/09/22 23:59 23:59 23:59 Intake Total 1040 / 1040 1940 / 1940 Output Total 600 / 600 1500 / 1500 Balance 440 / 440 440 / 440 Medical Nutrition Assessment Dietitian: Malnutrition Criteria Met Start: 08/06/22 15:55 Freq: Status: Active Protocol: Document 08/06/22 16:44 LO (Rec: 08/06/22 16:44 LO [id number]) Nutrition Malnutrition Evidence of Malnutrition Exists Yes Malnutrition (severe): Chronic Clinical Problem Chronic Disease or Condition Related Malnutrition Etiology related to recent CVA Signs/Symptoms as evidenced by 36.4lbs (19%) weight loss in ~1.5months and <50%PO intake of meals for ~1 month prior to admission. 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 Problem Unintended Weight Loss Etiology related to unknown etiology Signs/Symptoms as evidenced by 7.1lbs (3.5%) weight loss in 1 week. Status Inactive Problem Recommendation Dietitian Recommendations/Changes Continue CCD, Cardiac diet to manage medical conditions. RD will order Magic Cup BID to provide supplemental energy. Lab / Micro Data Result Diagrams: 08/08/22 05:49 08/01/22 05:32 Labs: Laboratory Results - last 24 hr 08/08/22 16:29: POC Glucose 93 08/09/22 06:11: POC Glucose 125 H Micro: Microbiology 08/04/22 05:48 Exudate Gram Stain - Final 08/04/22 05:48 Exudate Wound Culture - Final Staphylococcus aureus 08/02/22 18:05 Stool Stool Occult Blood (PREMA) - Final Occult Blood Positive Physical Exam Const alert, oriented x3 and no apparent distress Constitutional Narrative: Pleasant, talkative and making good eye contact. Well kempt. General Appearance: cooperative HEENT moist oral mucous membranes and oropharynx normal HEENT Narrative: No thrush. Resp normal air movement and clear to auscultation bilaterally Cardio regular rate, regular rhythm and no gallops GI normal to inspection, nondistended, normoactive bowel sounds, soft to palpation and non-tender Extremity no calf tenderness General Extremity: Negative for edema Skin Rashes: no rashes Wound Narrative: The scalp incision is intact with no dehiscence, no radha-incisional erythema, no purulent discharge. There are very few small scabs left but the majority have resolved. The edema in the area of the scalp hematoma is minimal now and she has no pain with palpation of the incision. Neuro CN's II-XII intact bilaterally Neuro Narrative: Fluent speech, no trouble with word finding. Coordination / Balance: [id number] test normal and [id number] test normal Assessment & Plan Assessment/Plan (1) Debility: PLAN: Continue therapy. (2) Hemorrhagic stroke: (3) Hx of craniotomy: (4) Acute blood loss anemia: (5) Abscess or cellulitis of scalp: (6) Diabetes mellitus, type 2: (7) Hematoma of right parietal scalp: PLAN: Plan 1. continue therapy 2. finish 7 days of keflex for cellulitis of the scalp. 3. Probable DC the end of next week. Her sister is flying in on Saturday to help her with transition home. The and the sister will need family t raining prior to DC. This will likely occur on and plan discharge on Saturday. Charges/Coding Visit Charges Inpatient E&M: 28827 Subs Hosp L2
[2022-08-09 13:05] VITALS: BMI 30.7
--- NOTE | 2022-08-09 13:07 | CASEMGMT ---
Addendum entered by Nadia Reynolds 08/13/22 16:02: ST was added to the order. Appts have been scheduled. Original Note: Social Work IDT met with patient and for Team meeting. Discussed patient's progress in PT/OT/ST/SN. Educated to [facility] insurance with [employer] 08/10 and continued stay is not guaranteed with each review. Offered to set DC date for 08/16 as pt is progressing well. IDT would like to work on more higher level functioning tasks. Pt's sister is flying into town to assist on 08/15, so and pt agreeable to DC in one week. to purchase a shower chair. SW provided resources for grab bar installation. IDT recommending OP therapy. Pt/ prefers [facility]. can transport. Faxed referral to [facility] for PT/OT. Plan: DC home with 08/16, [facility] PT/OT CAMILLE GagnonW
[2022-08-09 17:15] LABS: Bedside Glucose 92 mg/dL (74-106)
[2022-08-09 22:15] VITALS: BP 114/68; PULSE 77; RESP 18; TEMP 35.9; O2SAT 94; BMI 30.7
[2022-08-09] MEDS: traMADol 50 MG Tablet PO (22:21)
[2022-08-09] MEDS: Pregabalin 75 MG Capsule PO (22:24)
[2022-08-10] MEDS: Cephalexin 500 MG Capsule PO ×3 (05:55→20:10)
[2022-08-10] MEDS: Enoxaparin 40 MG/0.4 ML Syringe SC (05:55)
[2022-08-10 06:00] VITALS: BMI 30.8
[2022-08-10 06:55] LABS: Bedside Glucose 129 mg/dL (74-106)
[2022-08-10 07:15] VITALS: BP 119/74; PULSE 85; RESP 15; TEMP 36.8; O2SAT 95
[2022-08-10] MEDS: Lisinopril 10 MG Tablet PO (08:04)
[2022-08-10] MEDS: DULoxetine Hcl 20 MG Capsule PO (08:04)
[2022-08-10] MEDS: Tamsulosin HCl 0.4 MG Capsule PO (08:04)
[2022-08-10] MEDS: buPROPion 75 MG Tablet PO ×2 (08:04→20:10)
[2022-08-10] MEDS: Magnesium Chloride 64 MG Delay Rel.Tablet 128 MG PO (08:04)
[2022-08-10] MEDS: Pantoprazole Sodium 40 MG Tablet PO (08:04)
[2022-08-10] MEDS: Carvedilol 6.25 MG Tablet PO ×2 (08:05→16:16)
[2022-08-10] MEDS: amLODIPine 10 MG Tablet PO (08:05)
[2022-08-10] MEDS: metFORMIN HCl 500 MG Tablet 250 MG PO ×2 (08:05→16:16)
[2022-08-10 13:02] VITALS: BMI 30.8
[2022-08-10 17:40] LABS: Bedside Glucose 113 mg/dL (74-106)
[2022-08-10 19:40] VITALS: BP 104/56; PULSE 81; RESP 14; TEMP 37.4; O2SAT 95
[2022-08-10 20:00] VITALS: O2SAT 95
[2022-08-10] MEDS: Pregabalin 75 MG Capsule PO (20:10)
[2022-08-10] MEDS: Senna/Docusate Sodium 1 Tablet 2 TABLET PO (20:10)
[2022-08-10] MEDS: Acetaminophen 500 MG Tablet 1000 MG PO (20:10)
--- NOTE | 2022-08-10 20:15 | NURSING ---
Pt given HS meds early per request.
[2022-08-11] MEDS: Cephalexin 500 MG Capsule PO ×3 (05:45→20:30)
[2022-08-11] MEDS: Enoxaparin 40 MG/0.4 ML Syringe SC (05:46)
[2022-08-11 06:31] LABS: Bedside Glucose 142 mg/dL (74-106)
[2022-08-11] MEDS: Carvedilol 6.25 MG Tablet PO ×2 (08:11→17:00)
[2022-08-11] MEDS: metFORMIN HCl 500 MG Tablet 250 MG PO ×2 (08:12→17:01)
[2022-08-11] MEDS: Tamsulosin HCl 0.4 MG Capsule PO (08:12)
[2022-08-11] MEDS: Magnesium Chloride 64 MG Delay Rel.Tablet 128 MG PO (08:13)
[2022-08-11] MEDS: amLODIPine 10 MG Tablet PO (08:14)
[2022-08-11] MEDS: DULoxetine Hcl 20 MG Capsule PO (08:14)
[2022-08-11] MEDS: Pantoprazole Sodium 40 MG Tablet PO (08:15)
[2022-08-11] MEDS: buPROPion 75 MG Tablet PO ×2 (08:15→20:28)
[2022-08-11] MEDS: Lisinopril 10 MG Tablet PO (08:15)
[2022-08-11] MEDS: Senna/Docusate Sodium 1 Tablet 2 TABLET PO ×2 (08:16→20:30)
[2022-08-11 08:18] VITALS: BP 106/62; PULSE 84; RESP 16; TEMP 36.8; O2SAT 94
[2022-08-11 12:59] VITALS: BMI 30.8
[2022-08-11] MEDS: traMADol 50 MG Tablet PO (15:45)
[2022-08-11 16:41] LABS: Bedside Glucose 100 mg/dL (74-106)
[2022-08-11 20:19] VITALS: BP 101/58; PULSE 76; RESP 18; TEMP 36.3; O2SAT 93
[2022-08-11 20:21] VITALS: BMI 30.8
[2022-08-11] MEDS: Pregabalin 75 MG Capsule PO (20:27)
[2022-08-11 22:00] VITALS: RESP 16; O2SAT 95
[2022-08-12] MEDS: Enoxaparin 40 MG/0.4 ML Syringe SC (06:17)
[2022-08-12 06:45] LABS: Bedside Glucose 107 mg/dL (74-106)
[2022-08-12] MEDS: Carvedilol 6.25 MG Tablet PO ×2 (07:55→16:46)
[2022-08-12] MEDS: metFORMIN HCl 500 MG Tablet 250 MG PO ×2 (07:56→16:45)
[2022-08-12 08:35] VITALS: BP 107/60; PULSE 75; RESP 18; TEMP 36.9; O2SAT 96
[2022-08-12] MEDS: Tamsulosin HCl 0.4 MG Capsule PO (10:00)
[2022-08-12] MEDS: Pantoprazole Sodium 40 MG Tablet PO (10:01)
[2022-08-12] MEDS: amLODIPine 10 MG Tablet PO (10:01)
[2022-08-12] MEDS: DULoxetine Hcl 20 MG Capsule PO (10:01)
[2022-08-12] MEDS: Senna/Docusate Sodium 1 Tablet 2 TABLET PO ×2 (10:02→20:42)
[2022-08-12] MEDS: Lisinopril 10 MG Tablet PO (10:02)
[2022-08-12] MEDS: Magnesium Chloride 64 MG Delay Rel.Tablet 128 MG PO (10:02)
[2022-08-12] MEDS: buPROPion 75 MG Tablet PO ×2 (10:02→20:42)
[2022-08-12] MEDS: Acetaminophen 500 MG Tablet 1000 MG PO (11:51)
[2022-08-12] MEDS: DULAGLUTIDE 4.5 MG/0.5 ML SQ (13:39)
[2022-08-12 14:32] VITALS: BMI 30.8
[2022-08-12 16:36] LABS: Bedside Glucose 96 mg/dL (74-106)
[2022-08-12 19:15] VITALS: BP 109/64; PULSE 65; RESP 14; TEMP 37.1; O2SAT 97
[2022-08-12 19:40] VITALS: PULSE 78; RESP 16; O2SAT 97
[2022-08-12] MEDS: Pregabalin 75 MG Capsule PO (20:41)
[2022-08-12 20:44] VITALS: BMI 30.8
[2022-08-13 06:00] VITALS: BMI 30.2
[2022-08-13] MEDS: Enoxaparin 40 MG/0.4 ML Syringe SC (06:14)
[2022-08-13] MEDS: traMADol 50 MG Tablet PO (06:22)
[2022-08-13 06:31] LABS: Bedside Glucose 111 mg/dL (74-106)
[2022-08-13 07:34] VITALS: BP 118/69; PULSE 80; RESP 16; TEMP 36.8; O2SAT 93
[2022-08-13] MEDS: Carvedilol 6.25 MG Tablet PO (08:04)
[2022-08-13] MEDS: metFORMIN HCl 500 MG Tablet 250 MG PO ×2 (08:05→18:20)
[2022-08-13] MEDS: Magnesium Chloride 64 MG Delay Rel.Tablet 128 MG PO (09:11)
[2022-08-13] MEDS: buPROPion 75 MG Tablet PO ×2 (09:11→21:06)
[2022-08-13] MEDS: amLODIPine 10 MG Tablet PO (09:11)
[2022-08-13] MEDS: Pantoprazole Sodium 40 MG Tablet PO (09:11)
[2022-08-13] MEDS: DULoxetine Hcl 20 MG Capsule PO (09:11)
[2022-08-13] MEDS: Tamsulosin HCl 0.4 MG Capsule PO (09:11)
[2022-08-13] MEDS: Lisinopril 10 MG Tablet PO (09:11)
[2022-08-13 14:15] VITALS: BMI 30.2
--- NOTE | 2022-08-13 16:25 | PN_ITS ---
Subjective Subjective Afebrile VSS Maintaining appropriate oxygen saturation on RA Oral intake is good Blood sugars are very well controlled with no hypoglycemia. Discussed with nursing - no problems that need addressed Reviewed the PT/OT/ST notes Medication list reviewed. Rebeka tells me today that the hearing in her left ear is decreased. She has an appointment with Dr. Freedman every 6 months to clean the wax out of her ears. Her next appointment is in September. Rebeka denies lightheadedness, vertigo, CP, SOB at rest, SOB with exertion, cough, nausea, vomiting, abd pain, diarrhea, constipation, dysuria, calf pain and ankle swelling. She has no complaints other than the hearing loss. Objective Data Objective Data Vital Signs: Vital Signs Temp Pulse Resp BP Pulse Ox O2 Del Method O2 Flow Rate 98.3 F 80 16 118/69 93 Room Air 2 08/13/22 07:34 08/13/22 07:34 08/13/22 07:34 08/13/22 07:34 08/13/22 07:34 08/13/22 07:34 08/12/22 08:35 Oxygen Flow Rate (L/min) 2 Oxygen Delivery Method Room Air Weight: 188 lb 0.869 oz Body Mass Index (BMI) 30.2 Intake & Output: Intake and Output for Last 24 Hours 08/11/22 08/12/22 08/13/22 23:59 23:59 23:59 Intake Total 1540 / 1540 2120 / 2120 720 / 720 Output Total 1050 / 1050 1100 / 1100 300 / 300 Balance 490 / 490 1020 / 1020 420 / 420 Medical Nutrition Assessment Dietitian: Malnutrition Criteria Met Start: 08/06/22 15:55 Freq: Status: Active Protocol: Document 08/06/22 16:44 LO (Rec: 08/06/22 16:44 LO [id number]) Nutrition Malnutrition Evidence of Malnutrition Exists Yes Malnutrition (severe): Chronic Clinical Problem Chronic Disease or Condition Related Malnutrition Etiology related to recent CVA Signs/Symptoms as evidenced by 36.4lbs (19%) weight loss in ~1.5months and <50%PO intake of meals for ~1 month prior to admission. 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 Problem Unintended Weight Loss Etiology related to unknown etiology Signs/Symptoms as evidenced by 7.1lbs (3.5%) weight loss in 1 week. Status Inactive Problem Recommendation Dietitian Recommendations/Changes Continue CCD, Cardiac diet to manage medical conditions. RD will order Magic Cup BID to provide supplemental energy. Lab / Micro Data Result Diagrams: 08/08/22 05:49 08/01/22 05:32 Labs: Laboratory Results - last 24 hr 08/12/22 16:13: POC Glucose 96 08/13/22 06:07: POC Glucose 111 H Micro: Microbiology 08/04/22 05:48 Exudate Gram Stain - Final 08/04/22 05:48 Exudate Wound Culture - Final Staphylococcus aureus 08/02/22 18:05 Stool Stool Occult Blood (PREMA) - Final Occult Blood Positive Physical Exam Const alert and oriented x3 Constitutional Narrative: Pleasant, appropriate, making good eye contact. General Appearance: cooperative HEENT moist oral mucous membranes HEENT Narrative: There is a small amount of wax in the Left EAC but the membrane is clearly visible. There is no effusion. The TM is not red. The right external auditory canal is patent and the TM was visualized easily. There is some otosclerosis but no erythema, no bulging. Resp normal respiratory effort, normal air movement and clear to auscultation bilaterally Effort and Inspection: Negative for tachypneic or labored Cardio regular rate, regular rhythm, S1 normal heart sound, S2 normal heart sound and no gallops Cardio Narrative: No ectopy GI normal to inspection, nondistended, normoactive bowel sounds, soft to palpation and non-tender GI Narrative: No guarding with palpation Extremity no calf tenderness Extremity Narrative: She has no pitting edema of either LE. Skin General Skin Exam: no breakdown Rashes: no rashes Wound Narrative: The scalp incision is free of erythema and there is no DC. No dehiscence. She finished a 7 day course of antibiotics for cellulitis. The hematoma has mostly resolved. Psych cooperative and affect normal Appearance: appropriate Assessment & Plan Assessment/Plan (1) Debility: PLAN: Continue therapy. (2) Hemorrhagic stroke: (3) Hx of craniotomy: (4) Acute blood loss anemia: (5) Abscess or cellulitis of scalp: PLAN: Resolved (6) Diabetes mellitus, type 2: PLAN: well controlled (7) Hematoma of right parietal scalp: PLAN: resolved (8) Hearing loss: PLAN: Plan 1. Continue therapy 2. Plan DC for home with OP therapy 3. would like her prescriptions sent the [facility] retail pharmacy 4. She will follow-up with Dr. Freedman for a hearing test at her next appointment. Charges/Coding Visit Charges Inpatient E&M: 70810 Subs Hosp L2
[2022-08-13 16:56] LABS: Bedside Glucose 117 mg/dL (74-106)
[2022-08-13 19:23] VITALS: BP 104/59; PULSE 77; RESP 18; TEMP 36.7; O2SAT 94
[2022-08-13 20:57] VITALS: BMI 30.2
[2022-08-13] MEDS: Pregabalin 75 MG Capsule PO (21:08)
[2022-08-13 22:00] VITALS: PULSE 77; RESP 15; O2SAT 94
[2022-08-14] MEDS: traMADol 50 MG Tablet PO ×2 (00:46→20:21)
[2022-08-14] MEDS: Enoxaparin 40 MG/0.4 ML Syringe SC (05:31)
[2022-08-14] MEDS: Acetaminophen 500 MG Tablet 1000 MG PO ×2 (05:49→20:21)
[2022-08-14 07:05] LABS: Bedside Glucose 137 mg/dL (74-106)
[2022-08-14] MEDS: DULoxetine Hcl 20 MG Capsule PO (08:35)
[2022-08-14] MEDS: Carvedilol 6.25 MG Tablet PO ×2 (08:35→17:22)
[2022-08-14] MEDS: metFORMIN HCl 500 MG Tablet 250 MG PO ×2 (08:35→17:22)
[2022-08-14] MEDS: Magnesium Chloride 64 MG Delay Rel.Tablet 128 MG PO (08:36)
[2022-08-14] MEDS: Pantoprazole Sodium 40 MG Tablet PO (08:36)
[2022-08-14] MEDS: Tamsulosin HCl 0.4 MG Capsule PO (08:36)
[2022-08-14] MEDS: amLODIPine 10 MG Tablet PO (08:36)
[2022-08-14] MEDS: buPROPion 75 MG Tablet PO ×2 (08:36→20:22)
[2022-08-14] MEDS: Lisinopril 10 MG Tablet PO (08:37)
[2022-08-14 09:17] VITALS: BP 127/74; PULSE 86; RESP 15; TEMP 36.9; O2SAT 94
[2022-08-14 09:40] VITALS: PULSE 86; RESP 15; O2SAT 94
--- NOTE | 2022-08-14 16:18 | PCM.DC ---
Discharge Instructions Diet Discharge Diet: - (Low-salt, low-fat, carb controlled ) Activity Discharge Activity: May Not Drive, May Shower and - (May use a cane for ambulating on uneven surfaces.) Weight Bearing Status: Full weight bearing Keep extremity elevated above heart level: Legs Dressing / Incision Call your doctor if your incision/area has: Continuous Slow Oozing, Increased Pain/ Swelling, Increased Redness, Foul Smelling Discharge and Swelling at the incision site Call your doctor if you observe: Fever of 101 or Higher, Shortness of breath, Dizziness, Fainting spells, Chest pain, Increased palpitations (irregular heartbeat) and Calf discomfort Suture Line Care: Avoid Pulling/Pushing and Avoid Pinching/Bending Change Dressing in: do not change dressing (No dressing is needed.) Cleanse incision/area with: Soap & Water Follow Up Care Please Follow Up With: Flaquita Fink MD When: within the next 2 weeks Test Results: Test results from this visit will be discussed in further detail at your follow-up appointment, if applicable. Pending Tests Upon Discharge: none Discharge Plan Admission Admit Date/Time: 07/31/22 13:35 Primary Reason for Your Visit: Post hemorrhagic stroke debility Attending Provider: Ramona Padilla Primary Care Provider: Flaquita Fink Instructions Patient Instructions: Intimacy After Stroke, Effects of a Stroke on the ..., Stroke Mood Swings Depression, Discharge Instructions for Stroke, Stroke Prevention Activity Additional Instructions / Restrictions: 1. You have been a marvelous patient and worked very hard. AND despite having some emotional things going on you are always friendly and outgoing. We will miss you on rehab. You probably have some anxiety about going home in addition to excitement about going home. This is normal. If you get home and find that the depression or anxiety gets worse please call me and we can talk about what will help. 2. DO NOT OVERDO. You have been through a lot these past few months and it takes a lot out of you. If you overdo it will set you back because you will get fatigued and sore and quit doing the exercises. It is OK to order take out or door dash or buy frozen dinners you can pop into the microwave. Vacuuming actually requires a lot of energy......teach Deniz how to vacuum. 3. In order to continue to improve you must: a. sleep 8-9 hours a night b. eat a healthy diet c. exercise at least 6 days a week d. Take your medications as directed. 4. I have changed some of your medications. You are no longer taking insulin. Your BS's have been very well controlled. Keep track of your blood sugars at home......write down the time you took the BS and what the result was and take this record with you when you see the sociology adjunct instructor. A Lot of times patients will just take their glucometer with them to their appt because it stores the results in the memory and your doctor can review it. 5. Your lab work from yesterday looks good. You are a little anemic and this has not improved during your stay. We checked your stool for blood on 08/02/22. This is a non-specific test and it can be positive due to hemorrhoids/hard BM/ulcers/colon polyps inflammation in the intestine, etc. I started you on a medication called pantoprazole ( Protonix) when the stool came back +. This medication treats ulcers. When you are stressed ulcers can develop within 24 hours after the stressful event. You had a stroke and then had a craniectomy and I'd say that's pretty stressful. I have given you a prescription for the pantoprazole and I would take it for 1 month after discharge. If your blood count remains a little bit low after the next month you will want to talk to Dr. Fink about this and she may recommend a colonoscopy and/or upper endoscopy. She may also want to check your iron studies to make sure you are not iron deficient........the bone marrow needs iron to make more red blood cells. 6. I have given you a prescription for Tramadol which is the pain medication you have been taking. there is a pain management doctor whose office is the hospital here. His name is Dr. Mack Martin. He does epidural injections. His office is usually very busy but, the wait is worth it. 7. It has been a pleasure getting to know you. If you have any questions after you leave rehab or I can help you in any way please do not hesitate to call me. Office: [phone] CELL: [phone] Discharge Orders/Prescriptions Prescriptions: New bupropion HCl 75 mg Tablet 75 mg PO BID Qty: 60 0RF metformin 500 mg Tablet 250 mg PO BIDCM Qty: 60 0RF lisinopril 10 mg Tablet 10 mg PO DAILY Qty: 30 0RF pregabalin 75 mg Capsule 75 mg PO QHS Qty: 30 0RF pantoprazole 40 mg Tablet,Delayed Release (Dr/Ec) 40 mg PO DAILY Qty: 30 0RF duloxetine 20 mg Capsule,Delayed Release(Dr/Ec) 20 mg PO DAILY Qty: 30 0RF Mag 64 64 mg Tablet,Delayed Release (Dr/Ec) 128 mg PO DAILY Qty: 30 0RF Continued rosuvastatin [Crestor] 20 MG tablet 10 mg PO QHS levothyroxine 75 mcg Tablet 75 mcg PO DAILY acetaminophen 500 mg Tablet 1,000 mg PO Q6H PRN PRN (Reason: Pain Score 1-3) Qty: 0 0RF carvedilol [Coreg] 6.25 mg Tablet 6.25 mg PO BID Qty: 60 0RF tramadol 50 mg tablet 50 mg PO Q6H PRN PRN (Reason: Pain Score 1-10) Qty: 28 0RF tamsulosin 0.4 mg Capsule 0.4 mg PO DAILY Qty: 30 0RF amlodipine 10 mg Tablet 10 mg PO DAILY Qty: 30 0RF Jardiance 10 mg tablet 10 mg PO DAILY@0800 Qty: 30 0RF Trulicity 4.5 mg/0.5 mL Pen Injector 4.5 mg SUBCUT WILCOX@1300 Qty: 4 0RF Discontinued sertraline 50 MG tablet 100 mg PO DAILY bupropion HCl 150 MG tablet extended release 24 hr 75 mg PO BID metformin 500 MG tablet,ER iman.retention 24 hr 1,000 mg PO BID lidocaine 4 % Adhesive Patch,Medicated 2 patch TOPICAL DAILY Rx Instructions: Apply to back lisinopril 20 mg Tablet 20 mg PO DAILY pregabalin [Lyrica] 75 mg Capsule 75 mg PO BID diclofenac sodium 1 % Gel 2 ea TOPICAL 4X/DAY Rx Instructions: Apply 2 grams topically to back methocarbamol 500 mg tablet 500 mg PO BID polysaccharide iron complex [Ferrex 150] 150 mg iron capsule 150 mg PO 0800 ascorbic acid (vitamin C) 500 mg tablet 500 mg PO BREAKFAST Glucerna 1.2 Noe 0.06-1.2 gram-kcal/mL liquid 120 ml PO TIDCM insulin glargine-yfgn 100 unit/mL (3 mL) insulin pen 10 unit subcut QHS Referrals / Follow Up: Carlos Jose MD [Other] - 08/27/22 10:15 am (Neurology ) [facility] [Other] - 08/27/22 9:00 am (CT) Danielle Gutierrez CNP [Other] - 09/24/22 2:00 am (First Floor) Flaquita Fink MD [Primary Care Provider] - 08/22/22 11:20 am Disposition Disposition (needs filled in before D/C Order can be placed): Home, Self Care
[2022-08-14 16:21] LABS: Bedside Glucose 121 mg/dL (74-106)
[2022-08-14 19:57] VITALS: BP 109/69; PULSE 85; RESP 16; TEMP 37.1; O2SAT 96
[2022-08-14 20:05] VITALS: O2SAT 96
[2022-08-14] MEDS: Pregabalin 75 MG Capsule PO (20:22)
--- NOTE | 2022-08-14 20:23 | NURSING ---
HS meds given early per pt request.
[2022-08-15] MEDS: Enoxaparin 40 MG/0.4 ML Syringe SC (05:33)
[2022-08-15 05:45] LABS: Hematocrit 32.4 % (37-47); Hemoglobin 10.6 g/dL (12.0-15.0); Mean Corp Hgb Conc 32.7 g/dL (32-36); Mean Corpuscular Hgb 30.7 pg (27.0-32.0); Mean Corpuscular Volume 93.9 fL (81-99); Mean Platelet Vol. 9.6 fl (6.2-12.0); Platelet Count 265 K/mm3 (150-450); RBC Distribution Width CV 12.9 % (11.6-14.6); RBC Distribution Width SD 44.1 fl (35.1-43.9); Red Blood Count 3.45 M/mm3 (4.2-5.4); White Blood Count 5.4 K/mm3 (4.4-11.0)
[2022-08-15 06:06] LABS: Anion Gap 7 (5-15); BUN 7 mg/dL (7-18); BUN/Creat Ratio 13.6 RATIO (10-20); Calcium,Total 9.1 mg/dL (8.5-10.1); Chloride 106 mmol/L (98-107); Creatinine, Serum 0.52 mg/dL (0.55-1.02); EST Glomerular Filtration Rate 126 mL/min (>60); Est Glom Filt Rate - Afr Amer 152 mL/min (>60); Estimated Creatinine Clearance 51.11 ml/min; Glucose 121 mg/dL (74-106); Potassium 3.5 mmol/L (3.5-5.1); Sodium Level 141 mmol/L (136-145)
[2022-08-15 06:56] LABS: Bedside Glucose 122 mg/dL (74-106)
[2022-08-15 07:37] VITALS: BP 102/59; PULSE 75; RESP 16; TEMP 37.1; O2SAT 95
[2022-08-15] MEDS: Carvedilol 6.25 MG Tablet PO ×2 (08:20→15:50)
[2022-08-15] MEDS: metFORMIN HCl 500 MG Tablet 250 MG PO ×2 (08:20→15:49)
[2022-08-15] MEDS: buPROPion 75 MG Tablet PO ×2 (08:22→20:43)
[2022-08-15] MEDS: DULoxetine Hcl 20 MG Capsule PO (08:22)
[2022-08-15] MEDS: Pantoprazole Sodium 40 MG Tablet PO (08:22)
[2022-08-15] MEDS: Tamsulosin HCl 0.4 MG Capsule PO (08:22)
[2022-08-15] MEDS: Lisinopril 10 MG Tablet PO (08:22)
[2022-08-15] MEDS: Magnesium Chloride 64 MG Delay Rel.Tablet 128 MG PO (08:22)
[2022-08-15] MEDS: amLODIPine 10 MG Tablet PO (08:22)
[2022-08-15 16:26] LABS: Bedside Glucose 89 mg/dL (74-106)
[2022-08-15 16:39] VITALS: BMI 30.2
[2022-08-15 19:20] VITALS: BP 104/67; PULSE 76; RESP 17; TEMP 35.8; O2SAT 98
[2022-08-15] MEDS: Acetaminophen 500 MG Tablet 1000 MG PO (20:42)
[2022-08-15] MEDS: traMADol 50 MG Tablet PO (20:42)
[2022-08-15] MEDS: Pregabalin 75 MG Capsule PO (20:42)
[2022-08-15 20:45] VITALS: O2SAT 96
[2022-08-16] MEDS: Enoxaparin 40 MG/0.4 ML Syringe SC (06:14)
[2022-08-16 06:16] VITALS: BMI 30.4
[2022-08-16 06:45] LABS: Bedside Glucose 109 mg/dL (74-106)
[2022-08-16 07:35] VITALS: BP 101/65; PULSE 75; RESP 16; TEMP 36.8; O2SAT 98
[2022-08-16] MEDS: metFORMIN HCl 500 MG Tablet 250 MG PO (08:11)
[2022-08-16] MEDS: Magnesium Chloride 64 MG Delay Rel.Tablet 128 MG PO (08:11)
[2022-08-16] MEDS: Tamsulosin HCl 0.4 MG Capsule PO (08:11)
[2022-08-16] MEDS: amLODIPine 10 MG Tablet PO (08:11)
[2022-08-16] MEDS: DULoxetine Hcl 20 MG Capsule PO (08:11)
[2022-08-16] MEDS: Lisinopril 10 MG Tablet PO (08:11)
[2022-08-16] MEDS: Pantoprazole Sodium 40 MG Tablet PO (08:11)
[2022-08-16] MEDS: buPROPion 75 MG Tablet PO (08:12)
[2022-08-16] MEDS: Carvedilol 6.25 MG Tablet PO (08:12)
[2022-08-16 14:04] VITALS: BMI 30.4
--- NOTE | 2022-08-16 14:11 | DS.PCM_ITS ---
Providers Date of Admission: 07/31/22 Primary Care Physician: Dr. Flaquita Fink MD Reason For Visit: CVA Diagnosis Discharge Diagnosis (1) Debility: Status: Acute Code(s): R53.81 - Other malaise Plan: Continue therapy. (2) Hemorrhagic stroke: Status: Resolved Code(s): I61.9 - Nontraumatic intracerebral hemorrhage, unspecified (3) Hx of craniotomy: Status: Acute Code(s): Z98.890 - Other specified postprocedural states (4) Acute blood loss anemia: Status: Acute Code(s): D62 - Acute posthemorrhagic anemia (5) Abscess or cellulitis of scalp: Status: Acute Code(s): L03.811 - Cellulitis of head [any part, except face] Plan: Resolved (6) Diabetes mellitus, type 2: Status: Acute Code(s): E11.9 - Type 2 diabetes mellitus without complications Plan: well controlled (7) Hematoma of right parietal scalp: Status: Acute Code(s): S00.03XA - Contusion of scalp, initial encounter Plan: resolved (8) Hearing loss: Status: Acute Code(s): H91.90 - Unspecified hearing loss, unspecified ear Plan 1. Continue therapy 2. Plan DC for home with OP therapy 3. would like her prescriptions sent the [facility] retail pharmacy 4. She will follow-up with Dr. Freedman for a hearing test at her next appointment. Medications at Discharge Home Medications rosuvastatin 20 mg tablet (Crestor) 10 mg PO QHS Cholestrol 10/03/15 levothyroxine 75 mcg tablet 75 mcg PO DAILY Thyroid 07/24/22 acetaminophen 500 mg tablet 1,000 mg PO Q6H PRN PRN Pain Score 1-3 #0 tabs 07/30/22 amlodipine 10 mg tablet 10 mg PO DAILY BP #30 tabs 08/14/22 bupropion HCl 75 mg tablet 75 mg PO BID #60 tabs 08/14/22 carvedilol 6.25 mg tablet (Coreg) 6.25 mg PO BID BP #60 tabs 08/14/22 dulaglutide 4.5 mg/0.5 mL subcutaneous pen injector (Trulicity) 4.5 mg (0.5 mL) subcut WILCOX@1300 DM #4 pens 08/14/22 duloxetine 20 mg capsule,delayed release 20 mg PO DAILY #30 caps 08/14/22 empagliflozin 10 mg tablet (Jardiance) 10 mg PO DAILY@0800 Check with primary doctor #30 tabs 08/14/22 lisinopril 10 mg tablet 10 mg PO DAILY #30 tabs 08/14/22 magnesium chloride 64 mg (magnesium chloride) tablet,delayed release (Mag 64) 128 mg PO DAILY #30 tabs 08/14/22 metformin 500 mg tablet 250 mg PO BIDCM #60 tabs 08/14/22 pantoprazole 40 mg tablet,delayed release 40 mg PO DAILY #30 tabs 08/14/22 pregabalin 75 mg capsule 75 mg PO QHS #30 caps 08/14/22 tamsulosin 0.4 mg capsule 0.4 mg PO DAILY Urine retention #30 caps 08/14/22 tramadol 50 mg tablet 50 mg PO Q6H PRN PRN Pain Score 1-10 #28 tabs 08/14/22 Medical Records Data Medical Nutrition Assessment Dietitian: Malnutrition Criteria Met Start: 08/06/22 15:55 Freq: Status: Active Protocol: Document 08/06/22 16:44 LO (Rec: 08/06/22 16:44 LO [id number]) Nutrition Malnutrition Evidence of Malnutrition Exists Yes Malnutrition (severe): Chronic Clinical Problem Chronic Disease or Condition Related Malnutrition Etiology related to recent CVA Signs/Symptoms as evidenced by 36.4lbs (19%) weight loss in ~1.5months and <50%PO intake of meals for ~1 month prior to admission. 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 Problem Unintended Weight Loss Etiology related to unknown etiology Signs/Symptoms as evidenced by 7.1lbs (3.5%) weight loss in 1 week. Status Inactive Problem Recommendation Dietitian Recommendations/Changes Continue CCD, Cardiac diet to manage medical conditions. RD will order Magic Cup BID to provide supplemental energy. Weight / BMI Weight Weight: 189 lb 6.033 oz Body Mass Index (BMI) 30.4 ABG / Lab / Microbiology Data Result Diagrams: 08/15/22 05:36 08/15/22 05:36 Laboratory: Laboratory Results - last 24 hr 08/15/22 15:53: POC Glucose 89 08/16/22 06:15: POC Glucose 109 H Microbiology: Microbiology 08/04/22 05:48 Exudate Gram Stain - Final 08/04/22 05:48 Exudate Wound Culture - Final Staphylococcus aureus 08/02/22 18:05 Stool Stool Occult Blood (PREMA) - Final Occult Blood Positive Indicators for Scoring Admitted with or Primary Diagnosis of CVA/Stroke: Yes Hx of CVA/Stroke: Yes Modified John Score MRS Score at time of Evaluation: 4-Moderate/severe disability D/C Instructions Discharge Diet: - (Low-salt, low-fat, carb controlled ) Weight Bearing Status: Full weight bearing Keep extremity elevated above heart level: Legs Call your doctor if your incision/area has: Continuous Slow Oozing, Increased Pain/ Swelling, Increased Redness, Foul Smelling Discharge and Swelling at the incision site Call your doctor if you observe: Fever of 101 or Higher, Shortness of breath, Dizziness, Fainting spells, Chest pain, Increased palpitations (irregular heartbeat) and Calf discomfort Suture Line Care: Avoid Pulling/Pushing and Avoid Pinching/Bending Cleanse incision/area with: Soap & Water Pending Tests Upon Discharge: none Please Follow Up With: Flaquita Fink MD When: within the next 2 weeks Meaningful Use Info Meaningful Use Diagnoses (Choose all that apply): Hemorrhagic CVA CVA Therapy Assessed for PT,OT and/or ST?: Yes Discharge Plan Admission Admit Date/Time: 07/31/22 13:35 Primary Reason for Your Visit: Post hemorrhagic stroke debility Attending Provider: Ramona Padilla Primary Care Provider: Flaquita Fink Instructions Patient Instructions: Intimacy After Stroke, Effects of a Stroke on the ..., Stroke Mood Swings Depression, Discharge Instructions for Stroke, Stroke Prevention Activity Additional Instructions / Restrictions: 1. You have been a marvelous patient and worked very hard. AND despite having some emotional things going on you are always friendly and outgoing. We will miss you on rehab. You probably have some anxiety about going home in addition to excitement about going home. This is normal. If you get home and find that the depression or anxiety gets worse please call me and we can talk about what will help. 2. DO NOT OVERDO. You have been through a lot these past few months and it takes a lot out of you. If you overdo it will set you back because you will get fatigued and sore and quit doing the exercises. It is OK to order take out or door dash or buy frozen dinners you can pop into the microwave. Vacuuming actually requires a lot of energy......teach Deniz how to vacuum. 3. In order to continue to improve you must: a. sleep 8-9 hours a night b. eat a healthy diet c. exercise at least 6 days a week d. Take your medications as directed. 4. I have changed some of your medications. You are no longer taking insulin. Your BS's have been very well controlled. Keep track of your blood sugars at home......write down the time you took the BS and what the result was and take this record with you when you see the brass pickler. A Lot of times patients will just take their glucometer with them to their appt because it stores the results in the memory and your doctor can review it. 5. Your lab work from yesterday looks good. You are a little anemic and this has not improved during your stay. We checked your stool for blood on 08/02/22. This is a non-specific test and it can be positive due to hemorrhoids/hard BM/ulcers/colon polyps inflammation in the intestine, etc. I started you on a medication called pantoprazole ( Protonix) when the stool came back +. This medication treats ulcers. When you are stressed ulcers can develop within 24 hours after the stressful event. You had a stroke and then had a craniectomy and I'd say that's pretty stressful. I have given you a prescription for the pantoprazole and I would take it for 1 month after discharge. If your blood count remains a little bit low after the next month you will want to talk to Dr. Fink about this and she may recommend a colonoscopy and/or upper endoscopy. She may also want to check your iron studies to make sure you are not iron deficient........the bone marrow needs iron to make more red blood cells. 6. I have given you a prescription for Tramadol which is the pain medication you have been taking. there is a pain management doctor whose office is the [facility] here. His name is Dr. Mack Martin. He does epidural injections. His office is usually very busy but, the wait is worth it. 7. It has been a pleasure getting to know you. If you have any questions after you leave rehab or I can help you in any way please do not hesitate to call me. Office: [phone] CELL: [phone] Discharge Orders/Prescriptions Prescriptions: New bupropion HCl 75 mg Tablet 75 mg PO BID Qty: 60 0RF metformin 500 mg Tablet 250 mg PO BIDCM Qty: 60 0RF lisinopril 10 mg Tablet 10 mg PO DAILY Qty: 30 0RF pregabalin 75 mg Capsule 75 mg PO QHS Qty: 30 0RF pantoprazole 40 mg Tablet,Delayed Release (Dr/Ec) 40 mg PO DAILY Qty: 30 0RF duloxetine 20 mg Capsule,Delayed Release(Dr/Ec) 20 mg PO DAILY Qty: 30 0RF Mag 64 64 mg Tablet,Delayed Release (Dr/Ec) 128 mg PO DAILY Qty: 30 0RF Continued rosuvastatin [Crestor] 20 MG tablet 10 mg PO QHS levothyroxine 75 mcg Tablet 75 mcg PO DAILY acetaminophen 500 mg Tablet 1,000 mg PO Q6H PRN PRN (Reason: Pain Score 1-3) Qty: 0 0RF carvedilol [Coreg] 6.25 mg Tablet 6.25 mg PO BID Qty: 60 0RF tramadol 50 mg tablet 50 mg PO Q6H PRN PRN (Reason: Pain Score 1-10) Qty: 28 0RF tamsulosin 0.4 mg Capsule 0.4 mg PO DAILY Qty: 30 0RF amlodipine 10 mg Tablet 10 mg PO DAILY Qty: 30 0RF Jardiance 10 mg tablet 10 mg PO DAILY@0800 Qty: 30 0RF Trulicity 4.5 mg/0.5 mL Pen Injector 4.5 mg SUBCUT WILCOX@1300 Qty: 4 0RF Discontinued sertraline 50 MG tablet 100 mg PO DAILY bupropion HCl 150 MG tablet extended release 24 hr 75 mg PO BID metformin 500 MG tablet,ER iman.retention 24 hr 1,000 mg PO BID lidocaine 4 % Adhesive Patch,Medicated 2 patch TOPICAL DAILY Rx Instructions: Apply to back lisinopril 20 mg Tablet 20 mg PO DAILY pregabalin [Lyrica] 75 mg Capsule 75 mg PO BID diclofenac sodium 1 % Gel 2 ea TOPICAL 4X/DAY Rx Instructions: Apply 2 grams topically to back methocarbamol 500 mg tablet 500 mg PO BID polysaccharide iron complex [Ferrex 150] 150 mg iron capsule 150 mg PO 0800 ascorbic acid (vitamin C) 500 mg tablet 500 mg PO BREAKFAST Glucerna 1.2 Noe 0.06-1.2 gram-kcal/mL liquid 120 ml PO TIDCM insulin glargine-yfgn 100 unit/mL (3 mL) insulin pen 10 unit subcut QHS Referrals / Follow Up: Carlos Jose MD [Other] - 08/27/22 10:15 am (Neurology ) [facility] [Other] - 08/27/22 9:00 am (CT) Danielle Gutierrez CNP [Other] - 09/24/22 2:00 am (First Floor) Flaquita Fink MD [Primary Care Provider] - 08/22/22 11:20 am Disposition Disposition (needs filled in before D/C Order can be placed): Home, Self Care
--- NOTE | 2022-08-16 14:15 | DS.PCM_ITS ---
Providers Date of Admission: 07/31/22 Date of Discharge: 08/16/22 Primary Care Physician: Dr. Flaquita Fink MD Reason For Visit: Hemorrhagic CVA with craniectomy Diagnosis Discharge Diagnosis (1) Debility: Status: Acute Code(s): R53.81 - Other malaise Plan: Continue therapy. (2) Hemorrhagic stroke: Status: Resolved Code(s): I61.9 - Nontraumatic intracerebral hemorrhage, unspecified (3) Hx of craniotomy: Status: Acute Code(s): Z98.890 - Other specified postprocedural states (4) Acute blood loss anemia: Status: Acute Code(s): D62 - Acute posthemorrhagic anemia Plan: Still mildly anemic at NE. She had a heme + stool on 08/02/2022. She was started on Protonix and the hemoglobin has been stable but not really improved. May need iron studies, EGD, colonoscopy if she continues to be anemic. (5) Abscess or cellulitis of scalp: Status: Acute Code(s): L03.811 - Cellulitis of head [any part, except face] Plan: Resolved. Due to MSSA . She had a extracranial hematoma and it likely became infected. Resolved with Keflex. (6) Diabetes mellitus, type 2: Status: Acute Code(s): E11.9 - Type 2 diabetes mellitus without complications Plan: well controlled (7) Hematoma of right parietal scalp: Status: Acute Code(s): S00.03XA - Contusion of scalp, initial encounter Plan: resolved (8) Hearing loss: Status: Acute Code(s): H91.90 - Unspecified hearing loss, unspecified ear Plan: She is going to follow up with Dr. Freedman and will ask for a hearing test. She feels her hearing is decreased in the L ear. (9) Cognitive dysfunction: Status: Acute Code(s): F09 - Unspecified mental disorder due to known physiological condition Plan: Much improved. Speech is fluent now and no trouble with word finding. Still some trouble with executive functions. (10) Left hemiparesis: Status: Acute Code(s): G81.94 - Hemiplegia, unspecified affecting left nondominant side Plan: Much better (11) Tactile extinction: Status: Acute Code(s): R44.8 - Other symptoms and signs involving general sensations and perceptions (12) Chronic back pain: Status: Chronic Code(s): M54.9 - Dorsalgia, unspecified; G89.29 - Other chronic pain Plan: Lyrica was not really helping with the back pain. We decreased the dose to 75 mg at HS. I think this is helping her to sleep so I left her on it but, could try discontinuing going forward. (13) Anxiety: Status: Acute Code(s): F41.9 - Anxiety disorder, unspecified (14) Insomnia: Status: Resolved Code(s): G47.00 - Insomnia, unspecified (15) Depression: Status: Acute Code(s): F32.A - Depression, unspecified Plan: She was transitioned from Sertraline to Duloxetine for the added benefit of chronic pain relief. She has had no adverse side effects. We recently had a discussion about how she is doing with anxiety/depression and she feels she is stable and doing well. She is sleeping well and has a good appetite. She has a little anxiety about going home but, this is normal and she is OK with it. (16) Hyperlipidemia: Status: Acute Code(s): E78.5 - Hyperlipidemia, unspecified (17) Hypertension: Status: Chronic Code(s): I10 - Essential (primary) hypertension (18) Left breast mass: Status: Acute Code(s): N63.20 - Unspecified lump in the left breast, unspecified quadrant Plan: Needs a bx and she missed her appt with a surgeon at [facility] due to the stroke. She will need to reschedule. (19) Obstructive sleep apnea: Status: Acute Code(s): G47.33 - Obstructive sleep apnea (adult) (pediatric) Plan: She is compliant with CPAP. (20) Heme positive stool: Status: Acute Code(s): R19.5 - Other fecal abnormalities Plan: If she has not had a colonoscopy in the past 5 years and she remains anemic would pursue a GI workup and order iron studies. Her last colonoscopy was with Dr. Belcher. (21) Malnutrition: Status: Acute Code(s): E46 - Unspecified protein-calorie malnutrition Plan: Appetite has improved and she has been using nutritional supplements. Weight was 207 lbs at presentation to the ED and when she arrived on rehab the wt was 201.3 lbs. Wt at NE is 189.4 lbs. she has been trying to lose wt and her intake is good. Plan 1. NE home with OP therapy at [facility]. Medications at Discharge Home Medications rosuvastatin 20 mg tablet (Crestor) 10 mg PO QHS Cholestrol 10/03/15 levothyroxine 75 mcg tablet 75 mcg PO DAILY Thyroid 07/24/22 acetaminophen 500 mg tablet 1,000 mg PO Q6H PRN PRN Pain Score 1-3 #0 tabs 07/30/22 amlodipine 10 mg tablet 10 mg PO DAILY BP #30 tabs 08/14/22 bupropion HCl 75 mg tablet 75 mg PO BID #60 tabs 08/14/22 carvedilol 6.25 mg tablet (Coreg) 6.25 mg PO BID BP #60 tabs 08/14/22 dulaglutide 4.5 mg/0.5 mL subcutaneous pen injector (Trulicity) 4.5 mg (0.5 mL) subcut WILCOX@1300 DM #4 pens 08/14/22 duloxetine 20 mg capsule,delayed release 20 mg PO DAILY #30 caps 08/14/22 empagliflozin 10 mg tablet (Jardiance) 10 mg PO DAILY@0800 Check with primary doctor #30 tabs 08/14/22 lisinopril 10 mg tablet 10 mg PO DAILY #30 tabs 08/14/22 magnesium chloride 64 mg (magnesium chloride) tablet,delayed release (Mag 64) 128 mg PO DAILY #30 tabs 08/14/22 metformin 500 mg tablet 250 mg PO BIDCM #60 tabs 08/14/22 pantoprazole 40 mg tablet,delayed release 40 mg PO DAILY #30 tabs 08/14/22 pregabalin 75 mg capsule 75 mg PO QHS #30 caps 08/14/22 tamsulosin 0.4 mg capsule 0.4 mg PO DAILY Urine retention #30 caps 08/14/22 tramadol 50 mg tablet 50 mg PO Q6H PRN PRN Pain Score 1-10 #28 tabs 08/14/22 potassium chloride 20 mEq tablet,extended release 20 meq PO DAILY #30 tabs 08/16/22 Hospital Course Operations - (Craniotomy on 07/02/22 to evacuate hematoma in the right/frontal/parietal regions.) Procedures None Summary of Care Provided Minutes Spent on Discharge: 40 Hospital Course: REBEKA AKERS, is a 66 YO F with a PMH of anxiety/depression, hyperlipidemia, insomnia, remote CVA in approximately 2009, diabetes mellitus type 2, chronic back pain, hypertension and a recently discovered breast nodule which is due to be biopsied who presented to the emergency department at [facility] on 07/01/2022 complaining of abrupt onset of severe headache associated with nausea/vomiting and left-sided weakness.? NIHSS was 11 in the emergency department.? A stat noncontrast CT brain showed a 63 mm intraparenchymal intracranial hemorrhage of the right parietal lobe.? There was overlying cerebral edema and the hemorrhage extended into the right temporal lobe.? There was also subarachnoid blood overlying the right temporal lobe and extending into the right parietal lobe.? Hemorrhage also extended into the lateral and third ventricles.? There was a hyperdense focus in the left frontal lobe consistent with hematoma.? Case was discussed with neurosurgery at [facility] and transfer to [facility] was recommended.? The patient was intubated for transport.? Upon arrival at [facility] neurosurgery placed an external ventricular drain and the patient was admitted to the neurointensive care unit.? On 07/02/2022 neurosurgery performed a craniectomy and evacuated the right frontal parietal hematoma.? On 07/04/2022 CT brain showed worsening bleeding and an external ventricular drain was placed once again.? It was removed on 07/13/2022.? While at [facility] she had a Foy catheter and developed a urinary tract infection secondary to E. coli and Enterococcus faecalis.? She was treated appropriately with antibiotics.? She was having difficulty with urine retention and was started on Flomax with improvement.? Foy catheter was removed on 07/22/2022.? She was admitted to the transitional care unit at [facility] on 07/24/2022 and on 07/31/2022 she was transferred from SNF/TCU to the acute rehab unit at [facility] for 3 hours of therapy daily to restore function/independence at or near her level prior to the hemorrhagic stroke. ?? ? NIHSS at presentation to rehab was 1 for tactile neglect of the left arm and leg and she also had visual neglect (left homonymous hemianopia). she also had cognitive deficits. Her hemoglobin at presentation to rehab was 10.6 and it is 10.6 at discharge. A Hemoccult stool was obtained on 08/02/2022 and was positive for blood. She was started on Protonix 40 mg daily and the hemoglobin is stable but, not improving. She tells me she had a colonoscopy about [address] Belcher and he told her everything was fine. She denied any history of peptic ulcer disease. White blood cell count and platelets have been within normal limits. The creatinine is stable at 0.52 at discharge with a BUN of 7 and she is not aware that she needs to maintain a good fluid intake to maintain good cerebral perfusion. Hemoglobin A1c was 6.9 at admission. Potassium was borderline low at 3.5 on 08/15/2022 and she has been started on 20 mEq of potassium daily and she was given a copy of a diet high in potassium. Peggy had a small hematoma at admission to rehab which was external to the skull and under the incision. It got bigger and had some drainage. A CT brain was obtained and everything was stable intracranially but, it did show the extracranial hematoma. Drainage was + for MSSA and she was treated for 7 days with Keflex. The hematoma and the infection resolved. At the time of discharge from rehab Rebeka was independent with eating and grooming. She is standby assist for bathing, tub/shower transfer and upper and lower body dressing. She is supervision/set up for toilet transfer and toileting. She is able to do 14 sit to stands from a chair in 30 seconds with push-up from the armrest with bilateral upper extremities. She has a ascended/descended three 4 inch steps and two 6 inch steps with 1 handrail independently and if there is no handrail she requires only a light touch/contact-guard assist for safety. She is ambulating without a device now and she has ambulated 400 feet on various surfaces independently. She does require some voice cues occasionally for direction and finding areas within the hospital due to some persistent left side neglect. Peggy was discharged home on 08/16/22 and will have OP therapy at [facility]. Her sister will be arriving in 1 week to assist Peggy. Peggy's Deniz came in for family training prior to DC home. She is going to follow up with her PCP, Dr. Fink, and will also follow up at [facility] with Dr. Carlos Jose from neurology on 08/27/22 and Danielle Gutierrez [facility] on 08/12/22. She will have a NC CT brain on [facility] on 08/27/22 prior to her appt with Dr. Jose. Physical Exam Const alert, oriented x3 and no apparent distress Constitutional Narrative: Pleasant, appropriate, making good eye contact. General Appearance: cooperative and well developed HEENT moist oral mucous membranes and oropharynx normal HEENT Narrative: Incision is intact and healing. No DC, no erythema and no hematoma. Mouth: moist mucous membranes abnormal Eyes PERRL and EOMs intact bilaterally Eyes Narrative: There is no injection of the conjunctiva and no mattering of the eyelids. There is no DC from the eye. The swelling in the R temporal area and the R upper eyelid has resolved with tx of the hematoma/cellulitis. Visual neglect has resolved. The L eye appears larger than the R......mild lid lag. Able to close both eyes tightly. Neck supple, No nodes and no carotid bruits General: trachea midline Resp normal respiratory effort, normal air movement and clear to auscultation bilaterally Effort and Inspection: Negative for tachypneic, respiratory distress or labored Cardio regular rate, regular rhythm, S1 normal heart sound, S2 normal heart sound, no murmurs, no rub and no gallops Cardio Narrative: No ectopy GI normal to inspection, nondistended, normoactive bowel sounds, soft to palpation and non-tender GI Narrative: No guarding with palpation Extremity normal capillary refill and no calf tenderness Extremity Narrative: She has no pitting edema of either LE. It looks like her ankles are swollen but, that is just her body habitus......there is no pitting. General Extremity: Negative for clubbing, cyanosis or edema Skin no jaundice and no petechiae General Skin Exam: no breakdown Rashes: no rashes Wound Narrative: The scalp incision is free of erythema and there is no DC. No dehiscence. She finished a 7 day course of antibiotics for cellulitis. The hematoma has resolved. Neuro CN's II-XII intact bilaterally and moves all extremities Neuro Narrative: Fluent speech, no trouble with word finding. Visual extinction has resolved. Tactile extinction in the LLE is still present. L eye appears a little larger than the R. She is able to close both eyes tightly. There is a small amount of drift with the L leg......it does not hit the bed. Coordination / Balance: wmowyh-dh-owyi test normal and iigb-hk-rebt test normal Speech: speech normal Psych cooperative, affect normal, denies homicidal ideation and denies suicidal ideation Psych Narrative: Recognizes that her thought processes are not working as well as prior to the hemorrhagic CVA. She is calm and friendly. Appearance: appropriate Attitude: calm Activity / Motor Behavior: appropriate eye contact Speech: normal speech Mood & Affect: euthymic mood Thought Content: No hallucination(s) Medical Records Data Medical Nutrition Assessment Dietitian: Malnutrition Criteria Met Start: 08/06/22 15:55 Freq: Status: Active Protocol: Document 08/06/22 16:44 LO (Rec: 08/06/22 16:44 [id number]) Nutrition Malnutrition Evidence of Malnutrition Exists Yes Malnutrition (severe): Chronic Clinical Problem Chronic Disease or Condition Related Malnutrition Etiology related to recent CVA Signs/Symptoms as evidenced by 36.4lbs (19%) weight loss in ~1.5months and <50%PO intake of meals for ~1 month prior to admission. 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 Problem Unintended Weight Loss Etiology related to unknown etiology Signs/Symptoms as evidenced by 7.1lbs (3.5%) weight loss in 1 week. Status Inactive Problem Recommendation Dietitian Recommendations/Changes Continue CCD, Cardiac diet to manage medical conditions. RD will order Magic Cup BID to provide supplemental energy. Weight / BMI Weight Weight: 189 lb 6.033 oz Body Mass Index (BMI) 30.4 ABG / Lab / Microbiology Data Result Diagrams: 08/15/22 05:36 08/15/22 05:36 Laboratory: Laboratory Results - last 24 hr 08/15/22 15:53: POC Glucose 89 08/16/22 06:15: POC Glucose 109 H Microbiology: Microbiology 08/04/22 05:48 Exudate Gram Stain - Final 08/04/22 05:48 Exudate Wound Culture - Final Staphylococcus aureus 08/02/22 18:05 Stool Stool Occult Blood (PREMA) - Final Occult Blood Positive Indicators for Scoring Admitted with or Primary Diagnosis of CVA/Stroke: Yes Hx of CVA/Stroke: Yes Modified John Score MRS Score at time of Evaluation: 1-No significant disability NIHSS NIHSS 1a. Level of Consciousness: Alert; keenly responsive 1b. LOC Questions: Answers BOTH questions correctly. 1c. LOC Commands: Performs both tasks correctly. 2. Best Gaze: Normal 3. Visual: No visual loss 4. Facial Palsy: Normal symmetrical movements 5a. Left Arm: No drift; arm holds 90 (or 45) degrees for full 10 seconds 5b. Right Arm: No drift; arm holds 90 (or 45) degrees for full 10 seconds 6a. Left Leg: Drift; leg falls by the end of 5-seconds, but does not hit bed 6b. Right Leg: No drift; leg holds 30-degree position for full 5 seconds 7. Limb Ataxia: Absent 8. Sensory: Normal; no sensory loss 9. Best Language: No aphasia; normal 10. Dysarthria: Normal 11. Extinction and Inattention: Visual, tactile, auditory, spatial, or personal inattention (Visual extinction has resolved. She has tactile extinction only in the left lower extremity at the time of discharge.) Total: 2 Stroke Questions Stroke Team Activated: No D/C Instructions Discharge Diet: - (Low-salt, low-fat, carb controlled ) Weight Bearing Status: Full weight bearing Keep extremity elevated above heart level: Legs Call your doctor if your incision/area has: Continuous Slow Oozing, Increased Pain/ Swelling, Increased Redness, Foul Smelling Discharge and Swelling at the incision site Call your doctor if you observe: Fever of 101 or Higher, Shortness of breath, Dizziness, Fainting spells, Chest pain, Increased palpitations (irregular he artbeat) and Calf discomfort Suture Line Care: Avoid Pulling/Pushing and Avoid Pinching/Bending Cleanse incision/area with: Soap & Water Pending Tests Upon Discharge: none Please Follow Up With: Flaquita Fink MD When: within the next 2 weeks Meaningful Use Info Meaningful Use Diagnoses (Choose all that apply): Hemorrhagic CVA CVA Therapy Assessed for PT,OT and/or ST?: Yes Discharge Plan Admission Admit Date/Time: 07/31/22 13:35 Primary Reason for Your Visit: Post hemorrhagic stroke debility Attending Provider: Ramona Padilla Primary Care Provider: Flaquita Fink Instructions Patient Instructions: Intimacy After Stroke, Effects of a Stroke on the ..., Stroke Mood Swings Depression, Discharge Instructions for Stroke, High Potassium Diet Dc, Stroke Prevention Activity Additional Instructions / Restrictions: 1. You have been a marvelous patient and worked very hard. AND despite having some emotional things going on you are always friendly and outgoing. We will miss you on rehab. You probably have some anxiety about going home in addition to excitement about going home. This is normal. If you get home and find that the depression or anxiety gets worse please call me and we can talk about what will help. 2. DO NOT OVERDO. You have been through a lot these past few months and it takes a lot out of you. If you overdo it will set you back because you will get fatigued and sore and quit doing the exercises. It is OK to order take out or door dash or buy frozen dinners you can pop into the microwave. Vacuuming actually requires a lot of energy......teach Deniz how to vacuum. 3. In order to continue to improve you must: a. sleep 8-9 hours a night b. eat a healthy diet c. exercise at least 6 days a week d. Take your medications as directed. 4. I have changed some of your medications. You are no longer taking insulin. Your BS's have been very well controlled. Keep track of your blood sugars at home......write down the time you took the BS and what the result was and take this record with you when you see the special educator. A Lot of times patients will just take their glucometer with them to their appt because it stores the results in the memory and your doctor can review it. 5. Your lab work from yesterday looks good. You are a little anemic and this has not improved during your stay. We checked your stool for blood on 08/02/22. This is a non-specific test and it can be positive due to hemorrhoids/hard BM/ulcers/colon polyps inflammation in the intestine, etc. I started you on a medication called pantoprazole ( Protonix) when the stool came back +. This medication treats ulcers. When you are stressed ulcers can develop within 24 hours after the stressful event. You had a stroke and then had a craniectomy and I'd say that's pretty stressful. I have given you a prescription for the pantoprazole and I would take it for 1 month after discharge. If your blood count remains a little bit low after the next month you will want to talk to Dr. Fink about this and she may recommend a colonoscopy and/or upper endoscopy. She may also want to check your iron studies to make sure you are not iron deficient........the bone marrow needs iron to make more red blood cells. 6. I have given you a prescription for Tramadol which is the pain medication y ou have been taking. there is a pain management doctor whose office is the hospital here. His name is Dr. Mack Martin. He does epidural injections. His office is usually very busy but, the wait is worth it. 7. It has been a pleasure getting to know you. If you have any questions after you leave rehab or I can help you in any way please do not hesitate to call me. Office: [phone] CELL: [phone] Discharge Orders/Prescriptions Prescriptions: New bupropion HCl 75 mg Tablet 75 mg PO BID Qty: 60 0RF metformin 500 mg Tablet 250 mg PO BIDCM Qty: 60 0RF lisinopril 10 mg Tablet 10 mg PO DAILY Qty: 30 0RF pregabalin 75 mg Capsule 75 mg PO QHS Qty: 30 0RF pantoprazole 40 mg Tablet,Delayed Release (Dr/Ec) 40 mg PO DAILY Qty: 30 0RF duloxetine 20 mg Capsule,Delayed Release(Dr/Ec) 20 mg PO DAILY Qty: 30 0RF Mag 64 64 mg Tablet,Delayed Release (Dr/Ec) 128 mg PO DAILY Qty: 30 0RF potassium chloride 20 mEq tablet extended release 20 meq PO DAILY Qty: 30 0RF Continued rosuvastatin [Crestor] 20 MG tablet 10 mg PO QHS levothyroxine 75 mcg Tablet 75 mcg PO DAILY acetaminophen 500 mg Tablet 1,000 mg PO Q6H PRN PRN (Reason: Pain Score 1-3) Qty: 0 0RF carvedilol [Coreg] 6.25 mg Tablet 6.25 mg PO BID Qty: 60 0RF tramadol 50 mg tablet 50 mg PO Q6H PRN PRN (Reason: Pain Score 1-10) Qty: 28 0RF tamsulosin 0.4 mg Capsule 0.4 mg PO DAILY Qty: 30 0RF amlodipine 10 mg Tablet 10 mg PO DAILY Qty: 30 0RF Jardiance 10 mg tablet 10 mg PO DAILY@0800 Qty: 30 0RF Trulicity 4.5 mg/0.5 mL Pen Injector 4.5 mg SUBCUT WILCOX@1300 Qty: 4 0RF Discontinued sertraline 50 MG tablet 100 mg PO DAILY bupropion HCl 150 MG tablet extended release 24 hr 75 mg PO BID metformin 500 MG tablet,ER iman.retention 24 hr 1,000 mg PO BID lidocaine 4 % Adhesive Patch,Medicated 2 patch TOPICAL DAILY Rx Instructions: Apply to back lisinopril 20 mg Tablet 20 mg PO DAILY pregabalin [Lyrica] 75 mg Capsule 75 mg PO BID diclofenac sodium 1 % Gel 2 ea TOPICAL 4X/DAY Rx Instructions: Apply 2 grams topically to back methocarbamol 500 mg tablet 500 mg PO BID polysaccharide iron complex [Ferrex 150] 150 mg iron capsule 150 mg PO 0800 ascorbic acid (vitamin C) 500 mg tablet 500 mg PO BREAKFAST Glucerna 1.2 Noe 0.06-1.2 gram-kcal/mL liquid 120 ml PO TIDCM insulin glargine-yfgn 100 unit/mL (3 mL) insulin pen 10 unit subcut QHS Referrals / Follow Up: Carlos Jose MD [Other] - 08/27/22 10:15 am (Neurology ) [facility] [Other] - 08/27/22 9:00 am (CT) Danielle Gutierrez CNP [Other] - 09/24/22 2:00 am (First Floor) Flaquita Fink MD [Primary Care Provider] - 08/22/22 11:20 am Disposition Disposition (needs filled in before D/C Order can be placed): Home, Self Care Charges/Coding Visit Charges Inpatient E&M: 09721 Disch Hosp >30min
[2022-08-16 15:23] VITALS: BP 101/65; PULSE 75; RESP 16; TEMP 36.8; O2SAT 98
--- NOTE | 2022-08-16 15:24 | NURSING ---
discharged home with . discharge instructions, medications and appointments reviewed with pt and family. denies questions or concerns
== END 2022-08-16 15:25 | disposition home or self-care (01) | DRG 56 ==
PROVIDERS: Admitting Provider Internal Medicine; PCP Internal Medicine; Referring Provider Internal Medicine; Visit Provider Internal Medicine
DX: I69.354 Hemiplegia and hemiparesis following cerebral infarction affecting left non-dominant side (principal); G93.6 Cerebral edema; E46 Unspecified protein-calorie malnutrition; D62 Acute posthemorrhagic anemia; L02.811 Cutaneous abscess of head [any part, except face]; L03.811 Cellulitis of head [any part, except face]; H53.462 Homonymous bilateral field defects, left side; E11.9 Type 2 diabetes mellitus without complications; B95.62 Methicillin resistant Staphylococcus aureus infection as the cause of diseases classified elsewhere; Z79.4 Long term (current) use of insulin; E78.5 Hyperlipidemia, unspecified; F41.9 Anxiety disorder, unspecified; I10 Essential (primary) hypertension; G47.33 Obstructive sleep apnea (adult) (pediatric); I69.318 Other symptoms and signs involving cognitive functions following cerebral infarction; I69.398 Other sequelae of cerebral infarction; F32.A Depression, unspecified; Z79.891 Long term (current) use of opiate analgesic; N63.20 Unspecified lump in the left breast, unspecified quadrant; H91.90 Unspecified hearing loss, unspecified ear; Z79.84 Long term (current) use of oral hypoglycemic drugs; G89.29 Other chronic pain; Z79.899 Other long term (current) drug therapy; Z79.890 Hormone replacement therapy; Z68.30 Body mass index [BMI] 30.0-30.9, adult
CPT/HCPCS: 36415; 70450; 80048; 80053; 82274; 82962; 83036; 83735; 84100; 85025; 85027; 85652; 86140; 87070; 87077; 87186; 87205; 87641; 92507; 92523; 94668; 96125; 97110; 97112; 97116; 97129; 97130; 97162; 97166; 97530; 97535; 97802; 97803

== ENCOUNTER 2022-09-07 19:25 | Observation (INO) | payer MEDICARE, SELFPAY ==
[2022-09-07 19:27] VITALS: BP 129/77; PULSE 76; RESP 18; TEMP 36.5; O2SAT 96; BMI 32.9
--- NOTE | 2022-09-07 19:31 | ED.RN ---
Addendum entered by Katherine Graham 09/07/22 19:42: PER DR. MONTES, NO STROKE TEAM. Original Note: DR. MONTES TO TRIAGE FOR EVALUATION AT 1928.
--- NOTE | 2022-09-07 19:49 | CT_ITS ---
We are attempting to reach an attending provider to discuss findings. An addendum with communication details will be sent when the communication is complete. INDICATION: Left hand numbness EXAMINATION: CT BRAIN - CT Head or Brain W/O Contrast Injection TECHNIQUE: Multiple axial images were obtained of the head without intravenous contrast. A radiation dose optimization technique was used for this scan. IV Contrast dosage and agent: None. RADIATION DOSAGE (If Supplied By Facility): CTDIvol = ( 44.99 ) mGy, DLP = ( 812.98 ) mGycm COMPARISON: 08/07/2022 FINDINGS: BRAIN PARENCHYMA: Small right cerebral convexity pneumocephalus. Right cerebral convexity extra-axial blood products now measure 4 mm in caliber (5 mm on 08/07/2022 when measured in a similar fashion. Midline shift no longer demonstrated. Perhaps slightly decreased conspicuity of right parietotemporal parenchymal hemorrhages with surrounding edema. No evidence of acute infarct. No intracranial mass or mass effect. There is preservation of the catalan/white matter interface. Posterior fossa structures are unremarkable. CSF SPACES: Appropriate for age. No hydrocephalus. Basal cisterns are patent. CALVARIUM, SKULL BASE, PARANASAL SINUSES AND MASTOID AIR CELLS: Clear. No discrete lytic or blastic abnormalities. ORBITS: Bilateral ocular lens replacements. ASPECTS Score for Acute Strokes: 10 CT/Brain/Head without Contrast IMPRESSION: New small right cerebral convexity pneumocephalus. Slightly decreased right cerebral convexity extra-axial blood products. Evolving right parietotemporal parenchymal hemorrhages. Electronically Signed: Catrachito Nicole MD at 20:38 EDT ,
--- NOTE | 2022-09-07 19:50 | EKG12_ITS ---
Test Reason : NUMBNESS Blood Pressure : / mmHG Vent. Rate : 070 BPM Atrial Rate : 070 BPM P-R Int : 152 ms QRS Dur : 092 ms QT Int : 408 ms P-R-T Axes : 045 -09 037 degrees QTc Int : 440 ms Normal sinus rhythm Minimal voltage criteria for LVH, may be normal variant ( R in aVL ) Inferior infarct , age undetermined Abnormal ECG Confirmed by JOSE OLIVEIRA ([id number]), assistant film editor MAURICIO SANTIAGO ([id number]) on 09/11/2022 7:35:40 AM Referred By: Confirmed By:JOSE OLIVEIRA
--- NOTE | 2022-09-07 19:51 | EDS_ITS ---
HPI History of Present Illness Chief Complaint: Numb/Ting Informant: patient Narrative Narrative: Patient is a 66-year-old female with history of recent hemorrhagic stroke, treated operatively at [facility] in June of this year. She is presenting with sudden onset of left hand numbness and weakness. Patient states she was preparing her dog's food and she dropped the dog as she did not realize she was even holding it anymore. Patient felt that she had numbness in her right hand and forearm. With patient hemorrhagic stroke she had left-sided neglect. Patient notes that she had a breast biopsy on the left side today and is not sure if this is related to her symptoms. She denies any vision changes, speech changes or any other numbness or tingling. Her symptoms of since resolved. She is not on any blood thinners. No other complaints at this time. Patient is right-hand dominant. She is remote history of stroke 13 years ago. Patient notes that she has had issues of continued drainage from her craniotomy site. She states when she was in the TCU was cultured and was positive for MSSA and treated with antibiotics. [facility] Medical History Abdominal adhesions Anxiety Chronic back pain Diabetes mellitus, type 2 History of ectopic Hyperlipidemia Hypertension Stroke/cerebrovascular accident Home Medications rosuvastatin 20 mg tablet (Crestor) 10 mg PO QHS Cholestrol 10/03/15 [History Last Taken Unknown] levothyroxine 75 mcg tablet 75 mcg PO DAILY Thyroid 07/24/22 [History Last Taken Unknown] acetaminophen 500 mg tablet 1,000 mg PO Q6H PRN PRN Pain Score 1-3 #0 tabs 07/30/22 [Rx Last Taken Unknown] amlodipine 10 mg tablet 10 mg PO DAILY BP #30 tabs 08/14/22 [Rx Last Taken Unknown] bupropion HCl 75 mg tablet 75 mg PO BID #60 tabs 08/14/22 [Rx Last Taken Unknown] carvedilol 6.25 mg tablet (Coreg) 6.25 mg PO BID BP #60 tabs 08/14/22 [Rx Last Taken Unknown] dulaglutide 4.5 mg/0.5 mL subcutaneous pen injector (Trulicity) 4.5 mg (0.5 mL) subcut WILCOX@1300 DM #4 pens 08/14/22 [Rx Last Taken Unknown] duloxetine 20 mg capsule,delayed release 20 mg PO DAILY #30 caps 08/14/22 [Rx Last Taken Unknown] empagliflozin 10 mg tablet (Jardiance) 10 mg PO DAILY@0800 Check with primary doctor #30 tabs 08/14/22 [Rx Last Taken Unknown] lisinopril 10 mg tablet 10 mg PO DAILY #30 tabs 08/14/22 [Rx Last Taken Unknown] magnesium chloride 64 mg (magnesium chloride) tablet,delayed release (Mag 64) 128 mg PO DAILY #30 tabs 08/14/22 [Rx Last Taken Unknown] metformin 500 mg tablet 250 mg PO BIDCM #60 tabs 08/14/22 [Rx Last Taken Unknown] pantoprazole 40 mg tablet,delayed release 40 mg PO DAILY #30 tabs 08/14/22 [Rx Last Taken Unknown] pregabalin 75 mg capsule 75 mg PO QHS #30 caps 08/14/22 [Rx Last Taken Unknown] tamsulosin 0.4 mg capsule 0.4 mg PO DAILY Urine retention #30 caps 08/14/22 [Rx Last Taken Unknown] tramadol 50 mg tablet 50 mg PO Q6H PRN PRN Pain Score 1-10 #28 tabs 08/14/22 [Rx Last Taken Unknown] potassium chloride 20 mEq tablet,extended release 20 meq PO DAILY #30 tabs 08/16/22 [Rx Last Taken Unknown] Allergy/AdvReac Type Severity Reaction Status Date / Time latex Allergy Rash Verified 09/07/22 19:30 naproxen Allergy Rash Verified 09/07/22 19:30 Uzeirhq-ONN-VaZ Reductase Allergy MUSCLE Verified 09/07/22 19:30 Inhibitor ACHES [Pkkhlxp-Zjt-Afv Reductase Inhibitor] Surgical History History of bunionectomy History of open heart surgery History of vein stripping Hx of craniotomy Previous back surgery Social History household members: spouse housing: other details: One-story house with 2 steps to enter the house Smoking Status: Never smoker alcohol intake: never substance use type: does not use ROS ROS ED Constitutional Constitutional ED: Denies chills or fever(s) Eyes Eyes: Denies blurry vision or change in vision ENT ENT ED: Denies rhinorrhea Gastrointestinal Gastrointestinal: Denies abdominal pain, nausea or vomiting Musculoskeletal Musculoskeletal: Denies arthralgias or myalgias Integumentary Denies rash Neurologic Neurologic: Reports paresthesias LUE and weakness Psychiatric Psychiatric: Reports anxiety Hematologic/Lymphatic Hematologic/Lymphatic: Denies easy bleeding or easy bruising EXAM Physical Exam Const Vital Signs: 09/07/22 19:27 09/07/22 20:45 09/07/22 22:21 Temperature 97.7 F L Temperature Source Temporal Pulse Rate 76 70 71 Respiratory Rate 18 20 H Blood Pressure 129/77 H 126/74 H 142/72 H Blood Pressure Mean 94 91 95 Pulse Ox 96 95 Oxygen Delivery Method Room Air Room Air Positive well nourished and well developed General Appearance ED: well developed and NAD HEENT Reports moist mucous membranes atraumatic Eyes PERRL and EOMs intact bilaterally Neck no lymphadenopathy and supple Chest Wall inspection of chest normal and palpation of chest normal Resp normal respiratory effort and clear to auscultation bilaterally Cardio no murmurs Rate: regular rate Rhythm: regular rhythm GI normal to inspection, nondistended, normoactive bowel sounds Extremity normal to inspection General Extremety ED: Negative for deformity or edema General Extremity: Negative for deformity or edema Neuro oriented x3 and CN's II-XII intact bilaterally Neuro Narrative: NIH=0 Luann Coma Scale: document GCS findings Spontaneous Obeys Commands Oriented 15 Sensorium / Orientation: alert Speech: speech normal Psych mental status grossly normal Mood & Affect: anxious Skin no wounds Skin Narrative: Healing surgical incision on the scalp. No active drainage appreciated Lesions: no lesions Rashes: no rashes NIHSS NIHSS Initial: 1a Level of Consciousness: 0 1b LOC Questions (Score 2 if aphasic/stupor): 0 1c LOC Commands (Only score 1st attempt): 0 2 Best Gaze (If aphasic, use reflexive mvmts.): 0 3 Visual: 0 4 Facial Palsy: 0 5 Motor Arm Right (UN = amputation/fusion): 0 5 Motor Arm Left: 0 6 Motor Leg Right: 0 6 Motor Leg Left: 0 7 Limb ataxia (Only + if out of proportion): 0 8 Sensory (Aphasia/stupor=0 or 1, coma=2): 0 9 Best Language: 0 10 Dysarthria (mute, coma=2, intubated=UN): 0 11 Extinction and Inattention (only scored if +): 0 Total Score: 0 MDM MDM MDM Narrative Medical decision making narrative: Patient is evaluated for sudden onset of transient numbness/weakness of her left hand. Her symptoms have resolved upon arrival. Patient's history is complicated by her prior hemorrhagic stroke as well as recent craniotomy. CT of the brain does not show any acute bleed but does show new small right cerebral convexity pneumocephalus. After discussion with the radiologist he is not sure if this could be causing irritation which caused her symptoms versus postoperative changes. It seems that the patient's last surgery however was a month ago. Patient is not given aspirin because of her recent hemorrhagic stroke. Her other labs are normal/stable. Repeat evaluation/0 evaluation patient has no progressive or new neurologic symptoms. She continues have an NIH of 0 and is resting comfortably. She is not any meningeal signs. I did reach out to neurosurgery through [facility] and the images were pushed through to neurosurgery. Intention is to speak with neurosurgery to see if this pneumocephalus is concerning or as expected surgical change. If it is an expected postsurgical change anticipate patient could be admitted here for further ischemic/TIA work-up. Patient understands this plan of care. Patient signed out to oncoming physician pending final disposition/neurosurgery callback. History & Record Review Additional record(s) reviewed:: Prior inpatient record and Prior labs Lab Data Attestation: I reviewed the patient's lab results. Labs: Laboratory Results - last 24 hr 09/07/22 09/07/22 09/07/22 19:37 20:05 20:05 WBC 5.6 RBC 3.46 L Hgb 10.6 L Hct 32.4 L MCV 93.6 MCH 30.6 MCHC 32.7 RDW Std Deviation 45.5 H RDW Coeff of Carmelo 13.3 Plt Count 246 MPV 9.4 Immature Gran % (Auto) 0.200 Neut % (Auto) 42.5 L Lymph % (Auto) 45.1 H [place] % (Auto) 9.5 Eos % (Auto) 2.2 Baso % (Auto) 0.5 Absolute Neuts (auto) 2.4 Absolute Lymphs (auto) 2.51 Nucleated RBC % 0 PT 15.2 H INR 1.2 APTT 38.8 H Sodium Potassium Chloride Carbon Dioxide Anion Gap BUN Creatinine Estim Creat Clear Calc Est GFR (MDRD) Af Amer Est GFR (MDRD) Non-Af BUN/Creatinine Ratio Glucose Calcium POC Glucose 138 H 09/07/22 20:05 WBC RBC Hgb Hct MCV MCH MCHC RDW Std Deviation RDW Coeff of Carmelo Plt Count MPV Immature Gran % (Auto) Neut % (Auto) Lymph % (Auto) [place] % (Auto) Eos % (Auto) Baso % (Auto) Absolute Neuts (auto) Absolute Lymphs (auto) Nucleated RBC % PT INR APTT Sodium 140 Potassium 3.4 L Chloride 109 H Carbon Dioxide 26.0 Anion Gap 5 BUN 14 Creatinine 0.67 Estim Creat Clear Calc 47.14 Est GFR (MDRD) Af Amer 113 Est GFR (MDRD) Non-Af 93 BUN/Creatinine Ratio 20.9 H Glucose 135 H Calcium 9.6 POC Glucose Radiography Diagnostic Testing: Clinical Impression(s) from Imaging Studies Brain CT 09/07/22 19:49 IMPRESSION: New small right cerebral convexity pneumocephalus. Slightly decreased right cerebral convexity extra-axial blood products. Evolving right parietotemporal parenchymal hemorrhages. Electronically Signed: Catrachito Nicole MD at 20:38 EDT , ADDENDUM: 09/07/222106 IMPRESSION: New small right cerebral convexity pneumocephalus. Slightly decreased right cerebral convexity extra-axial blood products. Evolving right parietotemporal parenchymal hemorrhages. N.B. : The above Results were Read Back by Catrachito Nicole MD to Marisela Sarah DO, and understanding confirmed on 09/07/2022 21:00:47 (ET). Electronically Signed: Catrachito Nicole MD at 20:38 EDT , Chest X-Ray 09/07/22 20:15 IMPRESSION: No radiographic evidence of acute cardiopulmonary disease. Electronically Signed: Catrachito Nicole MD at 20:39 EDT , Rhythm Strip Rhythm Strip: Sinus Rhythm Rate: 70 Ectopy: None EKG Initial EKG: Attestation: I personally reviewed and interpreted this EKG as follows: Interpretation: Sinus Rhythm Comments: Normal sinus rhythm at a rate of 70 bpm Minimal voltage criteria for LVH, suspect normal variant Normal ST segments Normal intervals Management Discussion w/another healthcare provider: Radiologist Discharge Plan Triage Chief Complaint: Numb/Ting ED Provider: Marisela Sarah Dx/Rx/DC Orders Clinical Impression: Transient neurological symptoms, Pneumocephalus, History of hemorrhagic cerebrovascular accident (CVA) without residual deficits Prescriptions: No Action rosuvastatin [Crestor] 20 MG tablet 10 mg PO QHS levothyroxine 75 mcg Tablet 75 mcg PO DAILY acetaminophen 500 mg Tablet 1,000 mg PO Q6H PRN PRN (Reason: Pain Score 1-3) Qty: 0 0RF bupropion HCl 75 mg Tablet 75 mg PO BID Qty: 60 0RF metformin 500 mg Tablet 250 mg PO BIDCM Qty: 60 0RF lisinopril 10 mg Tablet 10 mg PO DAILY Qty: 30 0RF pregabalin 75 mg Capsule 75 mg PO QHS Qty: 30 0RF pantoprazole 40 mg Tablet,Delayed Release (Dr/Ec) 40 mg PO DAILY Qty: 30 0RF duloxetine 20 mg Capsule,Delayed Release(Dr/Ec) 20 mg PO DAILY Qty: 30 0RF Mag 64 64 mg Tablet,Delayed Release (Dr/Ec) 128 mg PO DAILY Qty: 30 0RF carvedilol [Coreg] 6.25 mg Tablet 6.25 mg PO BID Qty: 60 0RF tramadol 50 mg tablet 50 mg PO Q6H PRN PRN (Reason: Pain Score 1-10) Qty: 28 0RF tamsulosin 0.4 mg Capsule 0.4 mg PO DAILY Qty: 30 0RF amlodipine 10 mg Tablet 10 mg PO DAILY Qty: 30 0RF Jardiance 10 mg tablet 10 mg PO DAILY@0800 Qty: 30 0RF Trulicity 4.5 mg/0.5 mL Pen Injector 4.5 mg SUBCUT WILCOX@1300 Qty: 4 0RF potassium chloride 20 mEq tablet extended release 20 meq PO DAILY Qty: 30 0RF Primary Care Provider: Flaquita Fink Referrals: Flaquita Fink MD [Primary Care Provider] -
[2022-09-07 20:00] LABS: Bedside Glucose 138 mg/dL (74-106)
[2022-09-07 20:13] LABS: Absolute Lymphocyte Count 2.51 X10^3/uL (0.83-4.51); Absolute Neutrophil Count 2.4 X10^3/uL (2.0-7.7); Basophil# 0.03 X10^3/uL; Basophil% 0.5 % (0-1); Eosinophil# 0.12 X10^3/uL; Eosinophils% 2.2 % (0-5); Hematocrit 32.4 % (37-47); Hemoglobin 10.6 g/dL (12.0-15.0); Lymphocyte # 2.51 X10^3/ul (0.83-4.51); Lymphocyte % 45.1 % (19-41); Mean Corp Hgb Conc 32.7 g/dL (32-36); Mean Corpuscular Hgb 30.6 pg (27.0-32.0); Mean Corpuscular Volume 93.6 fL (81-99); Mean Platelet Vol. 9.4 fl (6.2-12.0); Monocyte# 0.53 X10^3/uL; Monocyte% 9.5 % (0-10); NRBC Flagged by Analyzer 0 % (0-5); Neutrophil # 2.37 X10^3/uL (2.7-7.7); Neutrophil % 42.5 % (47-70); Platelet Count 246 K/mm3 (150-450); RBC Distribution Width CV 13.3 % (11.6-14.6); RBC Distribution Width SD 45.5 fl (35.1-43.9); Red Blood Count 3.46 M/mm3 (4.2-5.4); White Blood Count 5.6 K/mm3 (4.4-11.0)
--- NOTE | 2022-09-07 20:15 | RAD_ITS ---
INDICATION: Weakness EXAMINATION/TECHNIQUE: X-RAY - XR Chest 1 View COMPARISON: 07/01/2022 FINDINGS: LUNGS: No consolidation, edema or effusion. No pneumothorax. MEDIASTINUM AND CARDIOVASCULAR STRUCTURES: Sternal wires and CABG.. Central airways and mediastinal contour are unremarkable. RAD/Chest 1 View (Portable) IMPRESSION: No radiographic evidence of acute cardiopulmonary disease. Electronically Signed: Catrachito Nicole MD at 20:39 EDT ,
[2022-09-07 20:26] LABS: International Normalized Ratio 1.2; Prothrombin Time (Protime)PT. 15.2 SECONDS (11.7-14.9)
[2022-09-07 20:27] LABS: Anion Gap 5 (5-15); BUN 14 mg/dL (7-18); BUN/Creat Ratio 20.9 RATIO (10-20); Calcium,Total 9.6 mg/dL (8.5-10.1); Chloride 109 mmol/L (98-107); Creatinine, Serum 0.67 mg/dL (0.55-1.02); EST Glomerular Filtration Rate 93 mL/min (>60); Est Glom Filt Rate - Afr Amer 113 mL/min (>60); Estimated Creatinine Clearance 47.14 ml/min; Glucose 135 mg/dL (74-106); Partial Thromboplast Time 38.8 Seconds (24.1-36.2); Potassium 3.4 mmol/L (3.5-5.1); Sodium Level 140 mmol/L (136-145)
[2022-09-07 20:45] VITALS: BP 126/74; PULSE 70
[2022-09-07 22:21] VITALS: BP 142/72; PULSE 71; RESP 20; O2SAT 95
[2022-09-08] VITALS (7 sets, daily range): BP systolic 118–139; BP diastolic 64–86; PULSE 63–76; RESP 16–19; TEMP 36.2–37.2; O2SAT 95–98; BMI 32.0
--- NOTE | 2022-09-08 02:49 | ED.RN ---
[facility] called back still attempting to get ahold of the neurosurgeon at this time Dr. Bailey updated
--- NOTE | 2022-09-08 05:42 | HP.PCM.HOS_ITS ---
HPI - General General Date of Admission: 09/08/22 Date of Service: 09/08/22 Chief Complaint: Loss of feelings in left hand. HPI Narrative HARSHAL AKERS, is a 66 F with a significant history of ischemic stroke in 2009 and hemorrhagic stroke on July 01, 2022 with subsequent evacuation at [facility] presents emergency department with loss of feeling of her left hand on the same day of presentation 09/07/2022. She was cooking when it happened. She dropped a hot wilcox and also too dropped her dog's dish. Has symptoms improved and about 45 minutes later. Earlier on the same day of presentation she had a biopsy of the left breast. 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 Because CT of her brain showed a new pneumocephalus; emergency department doctor discussed the case with neurosurgeon at [facility] who stated that the pneumocephalus was not concerning. [facility] Medical History Abdominal adhesions Anxiety Chronic back pain Diabetes mellitus, type 2 History of ectopic Hyperlipidemia Hypertension Stroke/cerebrovascular accident Home Medications rosuvastatin 20 mg tablet (Crestor) 10 mg PO QHS Cholestrol 10/03/15 [History Last Taken Unknown] levothyroxine 75 mcg tablet 75 mcg PO DAILY Thyroid 07/24/22 [History Last Taken Unknown] acetaminophen 500 mg tablet 1,000 mg PO Q6H PRN PRN Pain Score 1-3 #0 tabs 030 11/16 [Rx Last Taken Unknown] amlodipine 10 mg tablet 10 mg PO DAILY BP #30 tabs 08/14/22 [Rx Last Taken Unknown] bupropion HCl 75 mg tablet 75 mg PO BID #60 tabs 08/14/22 [Rx Last Taken Unknown] carvedilol 6.25 mg tablet (Coreg) 6.25 mg PO BID BP #60 tabs 08/14/22 [Rx Last Taken Unknown] dulaglutide 4.5 mg/0.5 mL subcutaneous pen injector (Trulicity) 4.5 mg (0.5 mL) subcut WILCOX@1300 DM #4 pens 08/14/22 [Rx Last Taken Unknown] duloxetine 20 mg capsule,delayed release 20 mg PO DAILY #30 caps 08/14/22 [Rx Last Taken Unknown] empagliflozin 10 mg tablet (Jardiance) 10 mg PO DAILY@0800 Check with primary doctor #30 tabs 08/14/22 [Rx Last Taken Unknown] lisinopril 10 mg tablet 10 mg PO DAILY #30 tabs 08/14/22 [Rx Last Taken Unknown] magnesium chloride 64 mg (magnesium chloride) tablet,delayed release (Mag 64) 128 mg PO DAILY #30 tabs 08/14/22 [Rx Last Taken Unknown] metformin 500 mg tablet 250 mg PO BIDCM #60 tabs 08/14/22 [Rx Last Taken Unknown] pantoprazole 40 mg tablet,delayed release 40 mg PO DAILY #30 tabs 08/14/22 [Rx Last Taken Unknown] pregabalin 75 mg capsule 75 mg PO QHS #30 caps 08/14/22 [Rx Last Taken Unknown] tamsulosin 0.4 mg capsule 0.4 mg PO DAILY Urine retention #30 caps 08/14/22 [Rx Last Taken Unknown] tramadol 50 mg tablet 50 mg PO Q6H PRN PRN Pain Score 1-10 #28 tabs 08/14/22 [Rx Last Taken Unknown] potassium chloride 20 mEq tablet,extended release 20 meq PO DAILY #30 tabs 08/16/22 [Rx Last Taken Unknown] Allergy/AdvReac Type Severity Reaction Status Date / Time latex Allergy Rash Verified 09/07/22 19:30 naproxen Allergy Rash Verified 09/07/22 19:30 Olxattq-EFY-UqA Reductase Allergy MUSCLE Verified 09/07/22 19:30 Inhibitor ACHES [Potwwrn-Arq-Hqx Reductase Inhibitor] Family History (Updated 09/08/22 @ 06:[address] Adalberto Kelly MD) Other CVA (cerebral vascular accident) Diabetes Surgical History History of bunionectomy History of open heart surgery History of vein stripping Hx of craniotomy Previous back surgery Social History household members: spouse housing: other details: One-story house with 2 steps to enter the house Smoking Status: Never smoker alcohol intake: never substance use type: does not use ROS ROS Narrative Pertinent positives and pertinent negatives as noted in HPI. All other systems were reviewed and are negative Vital Signs Vital Signs Vital Signs: 09/07/22 19:27 09/07/22 20:45 09/07/22 22:21 Temperature 97.7 F L Temperature Source Temporal Pulse Rate 76 70 71 Respiratory Rate 18 20 H Blood Pressure 129/77 H 126/74 H 142/72 H Blood Pressure Mean 94 91 95 Pulse Ox 96 95 Oxygen Delivery Method Room Air Room Air 09/08/22 00:44 09/08/22 02:02 Temperature Temperature Source Pulse Rate 69 63 Respiratory Rate 18 19 H Blood Pressure 134/78 H 134/64 H Blood Pressure Mean 96 87 Pulse Ox 95 95 Oxygen Delivery Method Room Air Room Air Weight Weight: 86.999 kg Body Mass Index (BMI) 32.9 Physical Exam Narrative Physical exam: General: Well-nourished, well-developed. Head: Normocephalic, atraumatic, no tenderness Eyes: Vision is grossly intact. EOMI ENT, no trauma, moist mucous membranes, no rhinorrhea Neck: Nontender, No thyromegaly. CVS: Regular rate and rhythm. S1-S2 present. No murmur, gallop or rub. Respiratory : clear to auscultation bilaterally, chest wall nontender Abdomen: Soft, nontender, nondistended, normal bowel sounds, no masses : Deferred Back: Nontender, no CVA tenderness, no midline spinal tenderness, deformities, step-offs Extremities: Nontender full range of motion, no trauma Skin: Normal color, no trauma, abrasions Neuro: Alert, oriented, cranial nerves II through XII grossly intact. Psychiatry: Normal mood. Normal affect. Not depressed. Not anxious. Results Lab / Micro Data Result Diagrams: 09/07/22 20:05 09/07/22 20:05 Labs: Laboratory Results - last 24 hr 09/07/22 19:37: POC Glucose 138 H 09/07/22 20:05: WBC 5.6, RBC 3.46 L, Hgb 10.6 L, Hct 32.4 L, MCV 93.6, MCH 30.6, MCHC 32.7, RDW Std Deviation 45.5 H, RDW Coeff of Carmelo 13.3, Plt Count 246, MPV 9.4, Immature Gran % (Auto) 0.200, Neut % (Auto) 42.5 L, Lymph % (Auto) 45.1 H, [place] % (Auto) 9.5, Eos % (Auto) 2.2, Baso % (Auto) 0.5, Absolute Neuts (auto) 2.4, Absolute Lymphs (auto) 2.51, Nucleated RBC % 0 09/07/22 20:05: PT 15.2 H, INR 1.2, APTT 38.8 H 09/07/22 20:05: Sodium 140, Potassium 3.4 L, Chloride 109 H, Carbon Dioxide 26.0, Anion Gap 5, BUN 14, Creatinine 0.67, Estim Creat Clear Calc 47.14, Est GFR (MDRD) Af Amer 113, Est GFR (MDRD) Non-Af 93, BUN/Creatinine Ratio 20.9 H, Glucose 135 H, Calcium 9.6 Rhythm Strip Rhythm Strip: Sinus Rhythm Rate: 70 Ectopy: None Radiology Impression Brain CT 09/07/22 19:49 IMPRESSION: New small right cerebral convexity pneumocephalus. Slightly decreased right cerebral convexity extra-axial blood products. Evolving right parietotemporal parenchymal hemorrhages. Electronically Signed: Catrachito Nicole MD at 20:38 EDT Reading Location ID and State: [facility] / [place] Tel , Service support , ADDENDUM: 09/07/222106 IMPRESSION: New small right cerebral convexity pneumocephalus. Slightly decreased right cerebral convexity extra-axial blood products. Evolving right parietotemporal parenchymal hemorrhages. N.B. : The above Results were Read Back by Catrachito Nicole MD to Marisela Sarah DO, and understanding confirmed on 09/07/2022 21:00:47 (ET). Electronically Signed: Catrachito Nicole MD at 20:38 EDT , Chest X-Ray 09/07/22 20:15 IMPRESSION: No radiographic evidence of acute cardiopulmonary disease. Electronically Signed: Catrachito Nicole MD at 20:39 EDT Reading Location ID and State: [facility] / [place] Tel , Service support , Assessment & Plan Assessment/Plan (1) Transient neurological symptoms: (2) Pneumocephalus: PLAN: Plan TIA NINDS NIH Scale ordered Impression of head CT by radiology: New small right cerebral convexity pneumocephalus. Slightly decreased right cerebral convexity extra-axial blood products. Evolving right parietotemporal parenchymal hemorrhages Upon my personal head CT image review: I agree with radiologist interpretation A1c on 08/01/2022 was 6.9. Physical therapy, and occupational therapy and to work with patient. N.p.o. until bedside swallow eval. In the setting of recent hemorrhagic bleed no aspirin ordered. Home statin continued Permissive hypertension. Control blood pressure with labetalol for systolic blood pressure of more than 220 or diastolic blood pressure of more than 120. MRI/MRA of head; brain; and neck. Echocardiogram ordered. Pneumocephalus Likely post surgical changes. Clinical monitoring Diabetes mellitus Patient with mild hyperglycemia on presentation On home Trulicity Monitor Accu-Cheks Correction scale insulin ordered. DVT prophylaxis SCDs ordered Charges/Coding Visit Charges Inpatient E&M: 58196 Init Hosp L2
--- NOTE | 2022-09-08 09:24 | MRI_ITS ---
EXAM: MR ANGIOGRAPHY NECK WITHOUT INTRAVENOUS CONTRAST CLINICAL INDICATION: TIA TECHNIQUE: Routine carotid MR angiogram protocol was performed without intravenous contrast. 3D reconstructions were reviewed. NASCET criteria using the distal ICAs for comparison were used for evaluation of stenoses. This report was created using [employer] report SeeControl technology. COMPARISON: None. FINDINGS: RIGHT COMMON CAROTID ARTERY: Unremarkable. No occlusion or significant stenosis. No dissection. RIGHT INTERNAL CAROTID ARTERY: There is mild atherosclerotic plaque formation of the origin of the right internal carotid artery with less than 50% cross sectional diameter stenosis. ALL ABOVE CRITERIA BY NASCET. No dissection. RIGHT EXTERNAL CAROTID ARTERY: Unremarkable. No occlusion. RIGHT VERTEBRAL ARTERY: Unremarkable. No occlusion or significant stenosis. No dissection. LEFT COMMON CAROTID ARTERY: Unremarkable. No occlusion or significant stenosis. No dissection. LEFT INTERNAL CAROTID ARTERY: There is mild atherosclerotic plaque formation of the origin of the left internal carotid artery with less than 50% cross sectional diameter stenosis. ALL ABOVE CRITERIA BY NASCET. No dissection. LEFT EXTERNAL CAROTID ARTERY: Unremarkable. No occlusion. LEFT VERTEBRAL ARTERY: Unremarkable. No occlusion or significant stenosis. No dissection. GREAT VESSELS OF AORTIC ARCH: Unremarkable. No significant stenosis. CAROTID STENOSIS REFERENCE USING NASCET CRITERIA: % ICA stenosis = (1 - narrowest ICA diameter/diameter of distal cervical ICA) x 100. Mild - <50% stenosis. Moderate - 50-69% stenosis. Severe - 70-94% stenosis. Near occlusion - 95-99% stenosis. Occluded - 100% stenosis. MRI/MRA Neck without Contrast IMPRESSION: 1. There is mild atherosclerotic plaque formation of the origin of the right internal carotid artery with less than 50% cross sectional diameter stenosis. ALL ABOVE CRITERIA BY NASCET. 2. There is mild atherosclerotic plaque formation of the origin of the left internal carotid artery with less than 50% cross sectional diameter stenosis. ALL ABOVE CRITERIA BY NASCET. Electronically Signed: Fidel Castillo MD at 14:44 EDT ,
--- NOTE | 2022-09-08 09:24 | ECHOD_ITS ---
Reason For Study: TIA.CVA Procedure This was a 2D Doppler, Color Flow transthoracic echocardiogram. Exam performed portable in patient room. Left Ventricle Normal left ventricle. The estimated ejection fraction is 55-60 %. Right Ventricle Normal right ventricle. Normal systolic function. Atria Normal left atrium. Normal right atrium. Mitral Valve The mitral valve is structurally normal. No prolapse or stenosis seen. Tricuspid Valve Normal tricuspid valve. Mild tricuspid valve insufficiency. Aortic Valve Normal aortic valve. Pulmonic Valve The pulmonic valve is not well visualized. Great Vessels Normal aortic root. Pericardium/Pleural No pericardial effusion. Medication Performed a rapid injection of agitated mix of 9 cc saline and 1cc air to assess for atrial septal defect. MMode/2D Measurements & Calculations LVIDd: 5.5 cm IVSd: 1.2 cm Ao root diam: 3.5 cm LVIDs: 3.4 cm LVPWd: 1.2 cm FS: 38.3 % LAV(MOD-bp): 93.3 ml LA A4 area: 27.8 cm2 LA dimension(2D): 3.7 cm LAV(MOD-bp) Indexed: 48.7 ml/m2 LAV(MOD-sp2): 94.1 ml LAV(MOD-sp4): 92.5 ml RA A4 area: 20.4 cm2 Time Measurements MV dec time: 0.28 sec Doppler Measurements & Calculations MV E max cam: 69.8 cm/sec Lat Peak E' Cam: 9.0 cm/sec Med Peak E' Cam: 5.3 cm/sec MV A max cam: 86.4 cm/sec E/E' lat: 7.8 E/E' med: 13.1 MV E/A: 0.81 Ao V2 max: 157.4 cm/sec LV V1 max: 115.2 cm/sec PA V2 max: 101.9 cm/sec Ao max P.9 mmHg LV V1 max P.3 mmHg Ao V2 mean: 107.0 cm/sec LV V1 mean P.2 mmHg Ao mean P.1 mmHg LV V1 mean: 85.7 cm/sec Ao V2 VTI: 29.6 cm LV V1 VTI: 26.1 cm AV (velocity ratio): 0.88 TR max cam: 223.4 cm/sec TR max P.0 mmHg ECHO/Echo Complete Interpretation Summary The estimated ejection fraction is 55-60 %. Ordering Physician: Adalberto Kelly Referring Physician: Flaquita Fink Performed By: Naima Jerry RDCS, RVT
--- NOTE | 2022-09-08 09:24 | MRI_ITS ---
EXAM: MR ANGIOGRAPHY HEAD WITHOUT INTRAVENOUS CONTRAST CLINICAL INDICATION: Hx of hemorrhagic stroke June 2022. Sudden onset of numbness, weakness left hand yesterday TECHNIQUE: Routine [place]/brain 3D time of flight MR angiogram protocol was performed without intravenous contrast. This report was created using [employer] report GoGuide technology. COMPARISON: None. FINDINGS: RIGHT INTERNAL CAROTID ARTERY: There is calcified plaque formation of the right cavernous carotid artery, with a mild stenosis (less than 50%). ALL ABOVE CRITERIA BY NASCET. No aneurysm. RIGHT ANTERIOR CEREBRAL ARTERY: Unremarkable. No significant stenosis at the visualized segments. Anterior communicating artery is present. No aneurysm. RIGHT MIDDLE CEREBRAL ARTERY: Unremarkable. No significant stenosis at the visualized segments. No aneurysm. RIGHT POSTERIOR CEREBRAL ARTERY: Unremarkable. No significant stenosis at the visualized segments. No aneurysm. RIGHT VERTEBRAL ARTERY: Unremarkable as visualized. No significant stenosis at the intradural/visualized segments. No aneurysm. LEFT INTERNAL CAROTID ARTERY: There is calcified plaque formation of the left cavernous carotid artery, with a mild stenosis (less than 50%). ALL ABOVE CRITERIA BY NASCET. No aneurysm. LEFT ANTERIOR CEREBRAL ARTERY: Unremarkable. No significant stenosis at the visualized segments. Anterior communicating artery is present. No aneurysm. LEFT MIDDLE CEREBRAL ARTERY: Unremarkable. No significant stenosis at the visualized segments. No aneurysm. LEFT POSTERIOR CEREBRAL ARTERY: Unremarkable. No significant stenosis at the visualized segments. No aneurysm. LEFT VERTEBRAL ARTERY: Unremarkable as visualized. No significant stenosis at the intradural/visualized segments. No aneurysm. BASILAR ARTERY: Unremarkable. No significant stenosis. No aneurysm. OTHER VASCULATURE: See above. BRAIN AND EXTRA-AXIAL SPACES: There is right cerebral post surgical subdural hematoma measuring 3.8mm. There is no midline shift. Diffuse right cerebral sub arachnoid blood. Right temporal parietal intracerebral hemorrhage noted. Mild overlying cerebral edema. MRI/MRA Head ONLY without Contrast IMPRESSION: 1. There is calcified plaque formation of the right cavernous carotid artery, with a mild stenosis (less than 50%). ALL ABOVE CRITERIA BY NASCET. 2. There is calcified plaque formation of the left cavernous carotid artery, with a mild stenosis (less than 50%). ALL ABOVE CRITERIA BY NASCET. Electronically Signed: Fidel Castillo MD at 14:43 EDT ,
--- NOTE | 2022-09-08 09:24 | MRI_ITS ---
STUDY: MR Brain W/O Contrast 09/08/2022 2:36 PM REASON FOR EXAM: Female, 66 years old. Hx of hemorrhagic stroke June 2022. Sudden onset of numbness, weakness left hand yesterday Comparison: CT 09.07.22 TECHNIQUE: Standardized multiplanar fat and water weighted pulse sequences were obtained. MR Brain W/O Contrast FINDINGS: There is mild cerebral atrophy with widening of the extra-axial spaces and ventricular dilatation. There are a limited number of small white matter hyperintensities, distributed throughout the deep white matter tracts of the cerebral hemispheres, consistent with mild chronic white matter ischemic changes. There is mild prominence of the vermian folia, consistent with atrophy of the vermis. The cerebellar hemispheres are normal. Normal bilateral basal ganglia. Normal thalami. There is right cerebral post surgical subdural hematoma measuring 3.8mm. There is no midline shift. Diffuse right cerebral sub arachnoid blood. Right temporal parietal intracerebral hemorrhage noted. Mild overlying cerebral edema. Positive GRE signal at this level suggests blood product. Normal flow voids within the major intracranial circulation suggesting patency by spin echo criteria. Normal sella turcica, pituitary gland, infundibular stalk, optic chiasm and hypothalamus. Normal tectal plate and pineal gland. Normal midbrain, shahbaz and medulla. Normal basal cisterns. Normal bilateral temporal bones. Normal bilateral internal auditory canals. No demonstrated orbital abnormality, within the constraints of a routine brain study. Normal visualized paranasal sinuses. Right craniotomy changes. Normal visualized soft tissue structures. Normal visualized upper cervical spine. MRI/Brain without Contrast IMPRESSION: (NOT LISTED IN ORDER OF SIGNIFICANCE) There is right cerebral post surgical subdural hematoma measuring 3.8mm. There is no midline shift. Diffuse right cerebral sub arachnoid blood. Right temporal parietal intracerebral hemorrhage noted. Mild overlying cerebral edema. Electronically Signed: Fidel Castillo MD at 14:41 EDT ,
[2022-09-08 10:21] LABS: Bedside Glucose 120 mg/dL (74-106)
--- NOTE | 2022-09-08 11:48 | CASEMGMT ---
SW administer PHQ9 as part of stroke protocol. Pt scored a 5 indicating mild depression but primarily reported the symptoms are due to complications from her previous stroke. Pt indicated she was in rehab for 4 weeks and additionally completing outpt rehab to gain functions back and difficulty concentrating and feeling down related to being unable to do her usual tasks post-stroke. Pt presented with positive affect and emphasized her progress. Pt denies needing counseling resources at this time. Ayesha Marquez WEED CONTROLLER, CEMENT HANDLER
--- NOTE | 2022-09-08 15:19 | TELEMED_ITS ---
[facility] Telemed has confirmed receipt of a request for visit. This document confirms receipt of the order initiating the consult. To find the results of the consultation, please view the patient's reports for the scanned Telemed Consult.
[2022-09-08] MEDS: Pantoprazole Sodium 40 MG Tablet PO (15:27)
[2022-09-08] MEDS: Empagliflozin 10 MG Tablet PO (15:27)
[2022-09-08] MEDS: Senna/Docusate Sodium 1 Tablet 2 TABLET PO (15:27)
[2022-09-08] MEDS: DULoxetine Hcl 20 MG Capsule PO (15:27)
[2022-09-08] MEDS: buPROPion 75 MG Tablet PO (15:28)
[2022-09-08] MEDS: Magnesium Chloride 64 MG Delay Rel.Tablet 128 MG PO (15:28)
--- NOTE | 2022-09-08 15:41 | PCM.HOSP.N ---
Hospitalist Note Reviewed brain and chin. Read as noted. Evaluated patient who reports she did not have any recurrence of symptoms. Has intermittently had a dull right-sided headache that she said had been off and on since her stroke and has not changed at all. Neuro exam unremarkable and finger-nose without difficulty. We will consult teleneurology given imaging and recurrent symptoms (though have now resolved) for any updated recommendations or management
--- NOTE | 2022-09-08 16:05 | CASEMGMT ---
KELLEY CHEN in to complete PLASCENCIA form with patient. RN GUSTAVO explained PLASCENCIA Form, patient voiced understanding. Patient signed PLASCENCIA Form and filed in chart. Patient provided copy of signed PLASCENCIA form. Patient had no further questions or concerns at this time.
[2022-09-08] MEDS: Insulin Lispro 100 UNIT/ML INSULN.PEN SC (16:31)
[2022-09-08 16:46] LABS: Bedside Glucose 168 mg/dL (74-106)
--- NOTE | 2022-09-08 17:38 | PCM.DC.SUM ---
Providers Date of Admission: 09/08/22 Date of Discharge: 09/08/22 Primary Care Physician: Dr. Flaquita Fink MD Reason For Visit: TIA Diagnosis Discharge Diagnosis (1) Transient neurological symptoms: Status: Acute Code(s): R29.818 - Other symptoms and signs involving the nervous system (2) Pneumocephalus: Status: Acute Code(s): G93.89 - Other specified disorders of brain Plan #History of right-sided hemorrhagic stroke #Hypertension #Type 2 diabetes mellitus Medications at Discharge Home Medications rosuvastatin 20 mg tablet (Crestor) 10 mg PO QHS Cholestrol 10/03/15 levothyroxine 75 mcg tablet 75 mcg PO DAILY Thyroid 07/24/22 acetaminophen 500 mg tablet 1,000 mg PO Q6H PRN PRN Pain Score 1-3 #0 tabs 07/30/22 amlodipine 10 mg tablet 10 mg PO DAILY BP #30 tabs 08/14/22 bupropion HCl 75 mg tablet 75 mg PO BID #60 tabs 08/14/22 carvedilol 6.25 mg tablet (Coreg) 6.25 mg PO BID BP #60 tabs 08/14/22 dulaglutide 4.5 mg/0.5 mL subcutaneous pen injector (Trulicity) 4.5 mg (0.5 mL) subcut WILCOX@1300 DM #4 pens 08/14/22 duloxetine 20 mg capsule,delayed release 20 mg PO DAILY #30 caps 08/14/22 empagliflozin 10 mg tablet (Jardiance) 10 mg PO DAILY@0800 Check with primary doctor #30 tabs 08/14/22 lisinopril 10 mg tablet 10 mg PO DAILY #30 tabs 08/14/22 magnesium chloride 64 mg (magnesium chloride) tablet,delayed release (Mag 64) 128 mg PO DAILY #30 tabs 08/14/22 metformin 500 mg tablet 250 mg PO BIDCM #60 tabs 08/14/22 pantoprazole 40 mg tablet,delayed release 40 mg PO DAILY #30 tabs 08/14/22 pregabalin 75 mg capsule 75 mg PO QHS #30 caps 08/14/22 tamsulosin 0.4 mg capsule 0.4 mg PO DAILY Urine retention #30 caps 08/14/22 tramadol 50 mg tablet 50 mg PO Q6H PRN PRN Pain Score 1-10 #28 tabs 08/14/22 potassium chloride 20 mEq tablet,extended release 20 meq PO DAILY #30 tabs 08/16/22 Hospital Course Procedures - (CT head, echo, MRI/MRA head and neck) Summary of Care Provided Minutes Spent on Discharge: 20 Hospital Course: Per H&P: HARSHAL AKERS, is a 66 F with a significant history of ischemic stroke in 2009 and hemorrhagic stroke on July 01, 2022 with subsequent evacuation at [facility] presents emergency department with loss of feeling of her left hand on the same day of presentation 09/07/2022.? She was cooking when it happened.? She dropped a hot wilcox and also too dropped her dog's dish.? Has symptoms improved and about 45 minutes later. Earlier on the same day of presentation? she had a biopsy of the left breast. 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 Because CT of her brain showed a new pneumocephalus; emergency department doctor discussed the case with neurosurgeon at [facility] who stated that the pneumocephalus was not concerning. Interim history: Patient had no recurrence of symptoms. MRA head and neck with only mild plaque. MRI brain with right cerebral postsurgical subdural hematoma measuring 3.8 mm with no midline shift. Diffuse right cerebral subarachnoid blood. Right temporal parietal intracerebral hemorrhage noted. Mild overlying cerebral edema. SOC consulted for evaluation given the symptoms and imaging finding even though this was better than imaging previously, unclear correlation. Spoke with teleneurology prior to discharge and they did not think that any changes or acute intervention needed to be done and to continue present management. Discussed discharge with patient and she would like to go home. No recurrence of symptoms, no neurological deficits on exam Weight / BMI Weight Weight: 84.6 kg Body Mass Index (BMI) 32.0 ABG / Lab / Microbiology Data Result Diagrams: 09/07/22 20:05 09/07/22 20:05 Laboratory: Laboratory Results - last 24 hr 09/07/22 19:37: POC Glucose 138 H 09/07/22 20:05: WBC 5.6, RBC 3.46 L, Hgb 10.6 L, Hct 32.4 L, MCV 93.6, MCH 30.6, MCHC 32.7, RDW Std Deviation 45.5 H, RDW Coeff of Carmelo 13.3, Plt Count 246, MPV 9.4, Immature Gran % (Auto) 0.200, Neut % (Auto) 42.5 L, Lymph % (Auto) 45.1 H, Toombs % (Auto) 9.5, Eos % (Auto) 2.2, Baso % (Auto) 0.5, Absolute Neuts (auto) 2.4, Absolute Lymphs (auto) 2.51, Nucleated RBC % 0 09/07/22 20:05: PT 15.2 H, INR 1.2, APTT 38.8 H 09/07/22 20:05: Sodium 140, Potassium 3.4 L, Chloride 109 H, Carbon Dioxide 26.0, Anion Gap 5, BUN 14, Creatinine 0.67, Estim Creat Clear Calc 47.14, Est GFR (MDRD) Af Amer 113, Est GFR (MDRD) Non-Af 93, BUN/Creatinine Ratio 20.9 H, Glucose 135 H, Calcium 9.6 09/08/22 09:56: POC Glucose 120 H 09/08/22 16:26: POC Glucose 168 H Radiography Diagnostic Testing: Radiology Impression Brain CT 09/07/22 19:49 IMPRESSION: New small right cerebral convexity pneumocephalus. Slightly decreased right cerebral convexity extra-axial blood products. Evolving right parietotemporal parenchymal hemorrhages. Electronically Signed: Catrachito Nicole MD at 20:38 EDT Reading Location ID and State: [address] [place] [address] Tel , Service support , ADDENDUM: 09/07/222106 IMPRESSION: New small right cerebral convexity pneumocephalus. Slightly decreased right cerebral convexity extra-axial blood products. Evolving right parietotemporal parenchymal hemorrhages. N.B. : The above Results were Read Back by Catrachito Nicole MD to Marisela Sarah DO, and understanding confirmed on 09/07/2022 21:00:47 (ET). Electronically Signed: Catrachito Nicole MD at 20:38 EDT Reading Location ID and State: [facility] / [place] Tel , Service support , Chest X-Ray 09/07/22 20:15 IMPRESSION: No radiographic evidence of acute cardiopulmonary disease. Electronically Signed: Catrachito Nicole MD at 20:39 EDT , Brain MRI 09/08/22 09:24 IMPRESSION: (NOT LISTED IN ORDER OF SIGNIFICANCE) There is right cerebral post surgical subdural hematoma measuring 3.8mm. There is no midline shift. Diffuse right cerebral sub arachnoid blood. Right temporal parietal intracerebral hemorrhage noted. Mild overlying cerebral edema. Electronically Signed: Fidel Castillo MD at 14:41 EDT , Echocardiogram 09/08/22 09:24 Interpretation Summary The estimated ejection fraction is 55-60 %. Ordering Physician: Adalberto Kelly Referring Physician: Flaquita Fink Performed By: Naima Jerry, NICKICS, RVT Head MRA 09/08/22 09:24 IMPRESSION: 1. There is calcified plaque formation of the right cavernous carotid artery, with a mild stenosis (less than 50%). ALL ABOVE CRITERIA BY NASCET. 2. There is calcified plaque formation of the left cavernous carotid artery, with a mild stenosis (less than 50%). ALL ABOVE CRITERIA BY NASCET. Electronically Signed: Fidel Castillo MD at 14:43 EDT , Neck MRA 09/08/22 09:24 IMPRESSION: 1. There is mild atherosclerotic plaque formation of the origin of the right internal carotid artery with less than 50% cross sectional diameter stenosis. ALL ABOVE CRITERIA BY NASCET. 2. There is mild atherosclerotic plaque formation of the origin of the left internal carotid artery with less than 50% cross sectional diameter stenosis. ALL ABOVE CRITERIA BY NASCET. Electronically Signed: Fidel Castillo MD at 14:44 EDT , D/C Instructions Discharge Diet: - (Resume previous diet) Meaningful Use Info Meaningful Use Diagnoses (Choose all that apply): None applicable Discharge Plan Admission Admit Date/Time: 09/08/22 05:02 Primary Reason for Your Visit: Left arm numbness Attending Provider: Isa Peacock Primary Care Provider: Flaquita Fink Consulting Providers: Adalberto Kelly ; Dewayne Bliss Instructions Patient Instructions: Hemorrhagic Stroke ... Additional Instructions / Restrictions: -Please follow-up with your neurologist as previously scheduled. -Continue your home medications -Please call your primary care provider's office upon discharge to schedule a hospital follow up within 1 week. -For any concerning signs or symptoms please call 911 or proceed to the nearest emergency department Discharge Orders/Prescriptions Prescriptions: Continued rosuvastatin [Crestor] 20 MG tablet 10 mg PO QHS levothyroxine 75 mcg Tablet 75 mcg PO DAILY acetaminophen 500 mg Tablet 1,000 mg PO Q6H PRN PRN (Reason: Pain Score 1-3) Qty: 0 0RF bupropion HCl 75 mg Tablet 75 mg PO BID Qty: 60 0RF metformin 500 mg Tablet 250 mg PO BIDCM Qty: 60 0RF lisinopril 10 mg Tablet 10 mg PO DAILY Qty: 30 0RF pregabalin 75 mg Capsule 75 mg PO QHS Qty: 30 0RF pantoprazole 40 mg Tablet,Delayed Release (Dr/Ec) 40 mg PO DAILY Qty: 30 0RF duloxetine 20 mg Capsule,Delayed Release(Dr/Ec) 20 mg PO DAILY Qty: 30 0RF Mag 64 64 mg Tablet,Delayed Release (Dr/Ec) 128 mg PO DAILY Qty: 30 0RF carvedilol [Coreg] 6.25 mg Tablet 6.25 mg PO BID Qty: 60 0RF tramadol 50 mg tablet 50 mg PO Q6H PRN PRN (Reason: Pain Score 1-10) Qty: 28 0RF tamsulosin 0.4 mg Capsule 0.4 mg PO DAILY Qty: 30 0RF amlodipine 10 mg Tablet 10 mg PO DAILY Qty: 30 0RF Jardiance 10 mg tablet 10 mg PO DAILY@0800 Qty: 30 0RF Trulicity 4.5 mg/0.5 mL Pen Injector 4.5 mg SUBCUT WILCOX@1300 Qty: 4 0RF potassium chloride 20 mEq tablet extended release 20 meq PO DAILY Qty: 30 0RF Referrals / Follow Up: Flaquita Fink MD [Primary Care Provider] - Within 1 Week Disposition Disposition (needs filled in before D/C Order can be placed): Home, Self Care Charges/Coding Visit Charges Inpatient E&M: 71700 Disch Hosp
== END 2022-09-08 17:37 | disposition home or self-care (01) ==
LOC: ED 09-08 06:30 → PCU 09-08 06:43
PROVIDERS: Admitting Provider Hospitalist; Emergency Provider Emergency Medicine; PCP Internal Medicine; Visit Provider Internal Medicine
DX: R29.818 Other symptoms and signs involving the nervous system (principal); G93.6 Cerebral edema; E11.9 Type 2 diabetes mellitus without complications; E78.5 Hyperlipidemia, unspecified; Z79.84 Long term (current) use of oral hypoglycemic drugs; I10 Essential (primary) hypertension; G93.89 Other specified disorders of brain; Z79.899 Other long term (current) drug therapy; Z79.890 Hormone replacement therapy; G89.29 Other chronic pain; R29.700 NIHSS score 0; R53.1 Weakness; Z86.73 Personal history of transient ischemic attack (TIA), and cerebral infarction without residual deficits; F41.9 Anxiety disorder, unspecified
CPT/HCPCS: 70450; 70544; 70547; 70551; 71045; 80048; 82962; 85025; 85610; 85730; 93005; 93306; 97161; 97165; 99221; 99284; A4216; G0378

== ENCOUNTER 2022-11-02 09:00 | Outpatient (RCR) | payer MEDICARE, SELFPAY ==
--- NOTE | 2022-08-17 11:44 | HP.PTEVAL_ITS ---
Patient's Visit Information HARSHAL AKERS is a 66 year old F referred to Physical Therapy by Dr. Ramona Padilla DO with a diagnosis of CVA. Date of Evaluation: 08/17/22 Physical Therapist: Lima Perez PT, Cert MDT - Visit Plan Frequency: 2x /Week Duration: 4-6 Weeks Plan: *USE GAIT BELT*. PATIENT HAS L SIDE NEGLECT. GAIT AND BALANCE TRAINING. CURB/STAIR TRAINING. OBDULIA LE ROM, STRETCHING AND STRENGTHENING. FUNCTIONAL TRAINING. - Subjective Work/Leisure: RETIRED. Present symptoms: PATIENT REPORTS SHE STILL HAS SOME LEFT NEGLECT. BEING CAREFUL WALKING. I DRIFT TO THE LEFT WHEN I WALK BUT DOING MUCH BETTER NOW. LE WEAKNESS. DECREASED STAMINA. GOING UP TWO SMALL STEPS INTO HOUSE WITHOUT HR INDEP'LY. Present since: CVA JUL 01 2022. Pain Scale: LOW BACK PAIN - CHRONIC - NO NEW LBP. RANGES 2-9/10. Currently: 12/03. Is it getting better, worse or staying the same: GETTING BETTER. Commenced as a result of: NO APPARENT REASON. Symptoms at onset: EXTREME HEADACHE. Disturbed sleep: SLEEPING FINE. Previous history/Previous treatment: CVA 10 YEARS AGO - NO RESIDUAL DEFICITS. Treatment this episode: ONSET Jun, [facility] BY MIRIAN ALTMANNYFER TO [place], STAYED IN [place] SEVERAL WKS, TRANSFERRED TO 4TH FLOOR REHAB FOR ABOUT 3 WKS AND D/C'D HOME YESTERDAY. Gait: VERING TO THE LEFT AND HAS TO CONCENTRATE SO HARD ON WHAT SHE IS DOING THAT IT WEARS HER OUT. WALKING WITHOUT ANY ASSISTIVE DEVICES. ONE FALL IN [place] TRYING TO GET TO THE BATHROOM BY HERSELF - HIT HEAD BUT NO OTHER RESIDUAL INJURIES FROM THAT FALL. Bowel or Bladder Dysfunction: NO. Accidents: NO. Unexplained weight loss: NO. PMH/Recent major surgery: NIDDM NOW - WAS ON INSULIN BEFORE THE STROKE BUT NOT NOW. MY SUGAR WAS PERFECT THE WHOLE TIME I WAS IN REHAB. HTN. - Objective THIS PATIENT AMBULATES INDEP'LY TO PT FROM WITH SLOW CAUTIOUS TYPE GAIT PATTERN. DECREASED CADANCE AND DECREASED BY STRIDE LENGTH. NO LOB. Sensory deficit: OBDULIA LE LIGHT TOUCH SENSATION GROSSLY INTACT AND SYMMETRICAL. ROM deficit: OBDULIA LE ROM WFL EXCEPT MILD OBDULIA HS TIGHTNESS AND L GASTROC TIGHTNESS > R. Motor deficit: OBDULIA LE'S GROSSLY 5/5 WITH MMTING EXCEPT R HIP 4/5, L HIP 4- /5 AND L KNEE 4/5. Reflexes: 2/3 OBDULIA LE'S. Dural Signs: NEGATIVE OBDULIA LE'S. Lumbar mvmt loss: flex - MOD. ext - SAURAV. R SG - SAURAV. L SG - SAURAV. PATIENT DENIES INCREASED LBP WITH LUMBAR ROM TESTING ALL PLANES. Core strength: POOR. Palpation: NO ACUTE LUMBAR TENDERNESS. OTHER: SEE TUG TEST AND STS TESTS BELOW. STEPS: PATIENT ABLE TO ASCEND AND DESCEND ONE FLIGHT OF STEPS WITH ONE UE ASSIST GOING UP AND TWO UE ASSIST COMING DOWN. PATIENT IS FEARFUL. - Balance/Special Test Scores Lower Extremity Functional Score: 17 TUG Test Time Seconds: 12.20 30 Second Chair Rise Test Seconds: 8 - Goals Goal 1:: PATIENT WILL COMPLETE 10 STANDS IN 30 SECS TO DEMONSTRATE IMPROVED FUNCTIONAL STRENGTH Goal Time Frame: 4-6 Weeks Goal 2:: PATIENT WILL COMPLETE TUG IN < 10 SECS TO DEMONSTRATE IMPROVED GAIT STABILITY Goal Time Frame: 4-6 Weeks Goal 3:: PATIENT WILL AMBULATE 800 FEET WITH [facility] WITH SUPERVISION X 1 TO IMPROVE ACTIVITY TOLERANCE Goal Time Frame: 4-6 Weeks Goal 4:: PATIENT WILL ASCEND AND DESCEND SINGLE CURB INDEP'LY WITHOUT AD TO HELP REINTEGRATE INTO COMMUNITY. Goal Time Frame: 4-6 Weeks Goal 5:: PATIENT WILL BE INDEP WITH A HEP FOR CONTINUED IMPROVEMENT ONCE FORMAL PHYSICAL THERAPY CONCLUDES. Goal Time Frame: 4-6 Weeks - Anticipated Interventions Patient/Client Instruction: Educate patient on: Condition, Plan of Care, Risk Factors For the Purpose of:: To improve self management Therapeutic Exercise to Include: Strength training, Endurance training, Balance training, Coordination, Body mechanics, Postural training, Flexibilty training, Gait and locomotor training, Neuromotor development For the Purpose of:: To increase ROM, To improve muscle performance and motor function, To increase tolerance to activity/condition/position, To improve ability of physical actions for home/community/work/leisure, To improve gait and locomotor functions Thank you for the opportunity to evaluate your patient. For Medicare and Medicare HMO plans, please review the plan of care and approve it. It will need to be FAXED BACK to us at [phone] for Medicare purposes. For Medicare only, by signing this I certify the plan of care. Please let me know if there are questions or concerns regarding this plan of care. Physician Signature: Date:
--- NOTE | 2022-08-17 12:19 | HP.SP.EVAL ---
Visit History - Visit Info Date of Eval: 08/17/22 Visit: 1 Trap Setter: KELLY - History Attending Doctor: Referring Doctor: Reason for Referral: CVA. RX HERE Previous speech therapy: Yes Other Relevant Medical History/Diagnoses/Surgery: Nay is a 66 year old female who was at [facility] for a speech, language, and cognition examination. 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 Pt reports difficulty with left neglect, memory issues, slow executive functioning. Pt lives at home with her . Pt's sister will come for a week to help, but lives out of state. Pt is responsible for all house, yard, finances, medication for her & . Smoking Status: Never smoker - Diagnosis Diagnosis: CVA - Pain Is pain an issue with your current prescribed condition?: No - Personal Preferred language: Angolan History - History Date of Eval: 08/17/22 Previous speech therapy: Yes Other Relevant Medical History/Diagnoses/Surgery: Nay is a 66 year old female who was at [facility] for a speech, language, and cognition examination. 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 Pt reports difficulty with left neglect, memory issues, slow executive functioning. Pt lives at home with her . Pt's sister will come for a week to help, but lives out of state. Pt is responsible for all house, yard, finances, medication for her & . Smoking Status: Never smoker Hx Smoking: No Hx Tobacco Use: No - Pain Is pain an issue with your current prescribed condition?: No Patient Allergies - Allergies Allergies latex Allergy (Verified 07/01/22 20:45) Rash naproxen Allergy (Verified 07/01/22 20:45) Rash Gkrikol-CIJ-StO Reductase Inhibitor [Hsjyavq-Vqn-Awa Reductase Inhibitor] Allergy (Verified 07/01/22 20:45) MUSCLE ACHES Objective Cog/Ling/Com - Test Administered Gxioxhfmv-Ufofvdmrue-Idqdhtzryxcaz Assessment Administered: Yes Rygxbkohq-Skiszldown-Rbehsjgtjqqjw Assessment: Cognitive ? Linguistic skills were evaluated using patient/family interview, skilled observation and informal evaluation through tasks completed by the patient. - Answer Yes/No Questions Simple: WNL Complex: WNL - Follows Commands 1 Step: WNL 2 Step: WNL Complex: Mild - Comments Comments: Pt completed a locating items task with 96% acc (26/27 located). Pt utilized scanning techniques taught in rehab. Pt unable to complete alternating attention task despite max cues - Recall Comments: Pt completed a memory and mental manipulation tasks with 40% acc - Medication Reading a medication label: Moderate, Severe Correctly stating instructions of medications: Moderate, Severe Completing medications independently: Severe - Numerical Skills Counting Money: Pt counted money accurately during 10/01 trial. 2 trials were left neglect errors. Telling Time: Pt read a clock and determined the time with 83% acc (03/07) - Organization Adding members to categories: WFL - Cognitive Linguistic Supervision/Saftey Awareness of deficits: WNL Being left home alone: WNL Managing medications: Moderate Managing finances: Severe - Executive Function Comments Comments: Pt noted slower cognitive functioning since CVA. Concerned these will impact her complex ADLs Plan - Plan Plan: Will recommend Pt for weekly outpatient speech therapy to address mod-severe cognitive impairment characterized by deficits in short-term memory, executive functioning, attention, following directions and completing complex ADL's such as finance and medication management, Pt would benefit from training in compensatory strategies to aid her memory, as well as cognitive training to improve cognitive functioning. Without treatment, Pt will be at risk to struggle to complete tasks of daily living and decrease level of independence. - Recommendations MBS: No Treatment Warranted: Yes Treatment Warranted: Cognition - Progress Prognosis: Good - Frequency Frequency: 2x /Week Duration: 2-4 Months - Goals that are Established Determination:: Goals will be added/modified as deemed necessary and appropriate. Therapy will be discontinued when results of re-evaluation indicate therapy is no longer needed or lack of progress has been documented. - Goal #1-5 Goal #1: Pt independently will complete complex problem solving, reasoning, and executive function tasks including but not limited to functional ADL (i.e. managing finances, safety awareness, paying bills, medication management, meal planning, using cellphone) with 90% acc during 2/3 sessions. Goal #2: Pt will complete basic to mod complex immediate, short-term, and working memory tasks with 90% acc independently across 3/4 measured opportunities. Goal #3: Pt will complete basic to mod complex sustained, alternating, divided attention tasks with 90% acc independently across ? measured opportunities. Goal #4: Pt will modify environment at home via implementing memory compensatory strategies within 4 weeks' time of their initial evaluation as measured by scores of 3 on a self-report checklist during 2/3 sessions. Goal #5: Pt will independently utilize scanning techniques and compensatory strategies to address her left neglect Education - Patient has Indicated that the Following Identified Educational Needs: None The Patient has indicated that they have no educational or learning abilities that may effect their care.: Yes - Patient Instruction Patient Education: Diagnosis, Treatment Plan, Goals Person Taught: Patient Teaching Method: Discussion, Demonstration Response to teaching: Verbalize understanding
--- NOTE | 2022-08-22 09:56 | HP.OTEVAL_ITS ---
Patient's Visit Information HARSHAL AKERS is a 66 year old F, referred to Occupational Therapy by Dr. Ramona Padilla DO, with a diagnosis of CVA. Date of Evaluation: 08/21/22 Occupational Therapist: Alyse Morataya, BRETT/José Miguel, CHT - Subjective This 66 year old female was seen for OT eval with dx of CVA. Pt states DOI was on 2022. Pt states she had slipped out of her chair and could not get back up- pt states she also had a strong headache. called EMS and she was transported to the [facility]. pt life flight to [facility]. Pt than returned to [facility] for rehab. Pt was admitted to Rehab and just released 08/16/22. pt has raised gardens beds and she would like to return to her gardening. Pt states she is dressing ok but difficulty with putting clothes on correctly. pt and pts spouse would like pt to become more ind. and more aware of her left side to return pt to her PLOF. - ADLs Dressing: Overhead shirt, Button shirt, Pants Comments: some difficulty with Fasteners: Zippers Comments: using shower chair Toileting: Manage clothing Kitchen: Peel fruits & vegetables, Open jars Comments: pt states she is using shower chair and grab bars. pt spouse supervising states she is having difficulty with dressing as she forgets and not put her left arm in sleeve. pt demo slower processing with kitchen tasks as putting sandwich together. - ROM ROM Comments: pt demo full ROM of BUE - Strength Shoulder: right 7.5# left 8.8# Elbow: right biceps 13# left 9# Foundry Superintendant: right 60# left 40# Lateral Pinch: right 10# left 12# Tripod Pinch: right12# left 8# Tip-to-Tip Pinch: right 8# left 6# Strength Comments: pt demo generalized weakness of left UE - Sensation Sensation Comments: denies - Visual/Perceptual Skills Left Neglect: Yes - left side - Cognitive Skills Follows Directions: Yes - slower to process 2 step directions Oriented to (Check all that apply): Person Short Term Memory Impaired: Yes - Nine Hole Peg Right: 22.93 Left: 29.91 - In-Hand Manipulation Finger to Palm Translation: Normal - Right, Normal - Left Palm to Finger Translation: Normal - Right, Normal - Left - Stroke Specific Quality of Life Total SS-QOL Score: 148 - Quick DASH-Disab of Arm,Shoulder& Hand Quick DASH Score: 56.8175 - Goals Goal:: pt will dem a increase in fit2 peak force testing by 10# to increase pts ind. with ADLs and IADLs. pt will demo a increase in left oil and gas superintendent strength by 10# to increase pts ind.with ADLs and meal prep. Goal:: pt will demo the ability to tie, untie and manipulate fasteners at IND level by d/c. pt will demo the ability to perform bilateral hand tasks with IND ability IE lifting container to simulate task of ADLS by d.c Goal:: pt will demo increase in visual scanning to left to increase safety with ambulation and interaction within her environment by d.c. pt will demo increase left side visual scan to increase awareness of her surroundings by d/c. Goal:: pt and family will report pt IND with donning clothing 80% of the time right side out and left arm in arm sleeves by dc. pt will demo the ability to turn clothing right side out to increase ind with dressing by d/c Goal:: pt will demo the ability to sit with head forward and not turned to the right 80% of the time by d.c. pt will demo the ability to look left and identify 3 objects correctly 4/5 trials by dc Goal:: pt will demo the ability to follow two step directions to increase pts ind. with ADLs and IADLS by dc. - Rehabilitation General Assessment: pt demo with increase difficulty with problem solving (ie turning button up shirt from inside out to right side out), pt demo with generalized weakness following her stroke and cranial sx. pt demo need for skilled OT services 2-3x a week for 8 weeks to increase her functional strength and IND with ADLs and IADLs. therapist will also ed. pts spouse of home modification and safety alyson. with ADls and IADls. Pt and spouse demo understanding of POC. Rehabilitation Potential: Good - Anticipated Interventions Strengthening, Ergonomic Education, Neuro Reeducation, Education re assistive Equipment, Education re Diagnosis, Caregiver Training, Home Program - Visit Plan Frequency: 2-3x /Week Duration: 6 Weeks General Plan: pt needs t-band HEP. pt demo difficulty with problem solving and following directions TEXT: Thank you for the opportunity to evaluate your patient. For Medicare and Medicare HMO plans, please review the plan of care and approve it. It will need to be FAXED BACK to us at [phone] for Medicare purposes. Please let me know if there are questions or concerns regarding this plan of care. Physician Signature: Date:
--- NOTE | 2022-09-19 12:52 | HP.PTDCSUM_ITS ---
It has been my pleasure to treat HARSHAL AKERS referred by Dr. Flaquita Fink MD, with the diagnosis of CVA for a total of 8 visit(s). Discharge Date: Please see the following information for a summary of their discharge status. Subjective: STATES SHE IS DOING HER HEP. SHE REPORTS SHE FEELS 98% CONFIDNET IN HER WALKING NOW. PATIENT REPORTS THERPAY HAS REALLY HELPED AND SHE ISN'T WORRIED ABOUT WALKING NOW. STATES SHE FEELS LIKE SHE CAN GET ON THE TURBINE ENGINEER TO MOW BUT HER WON'T LET HER. SHE STATES THE ONLY TIME SHE LOSES HER BALANCE IS IN HER YARD. SHE REPORTS IT HAPPENS IN THE DARK IN THE YARD WITH HER DOGS. PATIENT REPORTS HER BACK ALWAYS HURTS AND THAT'S NOT NEW. LOW BACK/HIPS Pain Intensity (Out of 10): 0 % Improvement: 98 Objective/Function: PATIENT WAS SEEN TODAY FOR RE-ASSESSMENT OF PROGRESS TOWARD THE SET PT GOALS AND THE NEED FOR FURTHER PHYSICAL THERAPY VS READINESS FOR DISCHARGE. SHE HAS MADE GREAT PROGRESS WITH PT AND APPROPRIATE FOR DISCHARGE FROM PT AT THIS TIME. SHE REPORTS FEELING GOOD ABOUT STOPPING PT AT THIS POINT AND HAS UPCOMING OT AND ST RE-ASSESSMENTS PENDING. UPON EXAM TODAY: THIS PATIENT AMBULATES INDEP'LY TO PT TODAY WITHOUT ANY AD, WITH GOOD CADANCE AND NO LOB. PATIENT FOLLOWS ALL COMMANDS WELL. SHE IS PLEASANT AND COOPERATIVE TO WORK WITH. Sensory deficit: OBDULIA LE LIGHT TOUCH SENSATION GROSSLY INTACT AND SYMMETRICAL. ROM deficit: OBDULIA LE ROM WFL. Motor deficit: OBDULIA LE'S GROSSLY 5/5 WITH MMTING. Dural Signs: NEGATIVE OBDULIA LE'S. Lumbar mvmt loss: flex - MOD. ext - SAURAV. R SG - SAURAV. L SG - SAURAV. PATIENT DENIES INCREASED LBP WITH LUMBAR ROM TESTING ALL PLANES BUT REPORTS SHE HAS BACK PAIN ALL THE TIME. OTHER: SEE TUG TEST AND STS TESTS BELOW. STEPS: PATIENT ABLE TO ASCEND AND DESCEND ONE FLIGHT OF STEPS RECIPRICALLY WITHOUT UE ASSIST/NO HR'S WITH THERAPIST SUPERVISION BUT PATIENT MORE CONFIDENT WITH ONE UE LIGHTLY ON HR UP AND DOWN. Goal 1:: PATIENT WILL COMPLETE 10 STANDS IN 30 SECS TO DEMONSTRATE IMPROVED FUNCTIONAL STRENGTH Goal 2:: PATIENT WILL COMPLETE TUG IN < 10 SECS TO DEMONSTRATE IMPROVED GAIT STABILITY Goal 3:: PATIENT WILL AMBULATE 800 FEET WITH WW WITH SUPERVISION X 1 TO IMPROVE ACTIVITY TOLERANCE Goal 4:: PATIENT WILL ASCEND AND DESCEND SINGLE CURB INDEP'LY WITHOUT AD TO HELP REINTEGRATE INTO COMMUNITY. Goal 5:: PATIENT WILL BE INDEP WITH A HEP FOR CONTINUED IMPROVEMENT ONCE FORMAL PHYSICAL THERAPY CONCLUDES. Plan: D/C. PATIENT AGREEABLE. If there are questions or concerns regarding this patient's physical therapy, please feel free to call me at [phone]. Thank you for the referral of this patient. Sincerely, Lima Perez, PT, Cert MDT Balance/Gait/Functional tests - Balance/Special Test Scores Lower Extremity Functional Score: 44 TUG Test Time Seconds: 9.32 Tug Test: <10 sec.=free mobile 30 Second Chair Rise Test Seconds: 13
--- NOTE | 2022-10-10 11:46 | HP.SP.REEV ---
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 RX HERE Previous speech therapy: Yes Other Relevant Medical History/Diagnoses/Surgery: Nay is a 66 year old female who was at [facility] for a speech, language, and cognition examination. 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 Pt reports difficulty with left neglect, memory issues, slow executive functioning. Pt lives at home with her . Pt's sister will come for a week to help, but lives out of state. Pt is responsible for all house, yard, finances, medication for her & . Smoking Status: Never smoker - Diagnosis Diagnosis: CVA - Pain Is pain an issue with your current prescribed condition?: No - Personal Preferred language: Kinyarwanda History - History Date of Eval: 08/17/22 Previous speech therapy: Yes Other Relevant Medical History/Diagnoses/Surgery: Nay is a 66 year old female who was at [facility] for a speech, language, and cognition examination. 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 Pt reports difficulty with left neglect, memory issues, slow executive functioning. Pt lives at home with her . Pt's sister will come for a week to help, but lives out of state. Pt is responsible for all house, yard, finances, medication for her & . Smoking Status: Never smoker Hx Smoking: No Hx Tobacco Use: No - Pain Is pain an issue with your current prescribed condition?: No Patient Allergies - Allergies Allergies latex Allergy (Verified 09/07/22 19:30) Rash naproxen Allergy (Verified 09/07/22 19:30) Rash Itxttke-UCS-IaZ Reductase Inhibitor [Mvnaocr-Mxm-Yif Reductase Inhibitor] Allergy (Verified 09/07/22 19:30) MUSCLE ACHES Previous/Current Goals - Goals 1-5 Previous Goal #1: Pt independently will complete complex problem solving, reasoning, and executive function tasks including but not limited to functional ADL (i.e. managing finances, safety awareness, paying bills, medication management, meal planning, using cellphone) with 90% acc during 2/3 sessions. Goal 1 Status: Goal Progressing: Pt completed a pill box organization with X6 errors so max cues were required to complete accurately. Pt completed a budgeting activity with mod cues. Previous Goal #2: Pt will complete basic to mod complex immediate, short-term, and working memory tasks with 90% acc independently across 3/4 measured opportunities. Goal 2 Status: Goal Progressing: Pt completed a memory and mental manipulation, 4 words, size: 50% acc, increased to 70% with mod cues & reps Previous Goal #3: Pt will complete basic to mod complex sustained, alternating, divided attention tasks with 90% acc independently across ? measured opportunities. Goal 3 Status: Goal Progressing: Pt completed alt. attention task with mod cues. Pt benefited from compensatory strategies i.e. putting a dot at the last number, scanning, and keeping a check list Previous Goal #4: Pt will modify environment at home via implementing memory compensatory strategies as measured by scores of 3 on a self-report checklist during 2/3 sessions. Goal 4 Status: Goal Not targeted yet Previous Goal #5: Pt will independently utilize scanning techniques and compensatory strategies to address her left neglect Goal 5 Status: Goal Partially Met (05/29): Pt I used scanning during a card memory game. Objective Cog/Ling/Com - Test Administered Sllkpzjhc-Bllrofprwl-Xxtklrlofizro Assessment Administered: Yes Uthwulose-Matlufoqja-Hslwolzqopthu Assessment: Cognitive ? Linguistic skills were evaluated using patient/family interview, skilled observation and informal evaluation through tasks completed by the patient. - Answer Yes/No Questions Simple: WNL Complex: WNL - Follows Commands 1 Step: WNL 2 Step: WNL Complex: Mild - Comments Comments: Pt completed a locating items task with 96% acc ( located). Pt utilized scanning techniques taught in rehab. Pt unable to complete alternating attention task despite max cues - Recall Comments: Pt completed a memory and mental manipulation tasks with 40% acc - Medication Reading a medication label: Moderate, Severe Correctly stating instructions of medications: Moderate, Severe Completing medications independently: Severe - Numerical Skills Counting Money: Pt counted money accurately during 10/01 trial. 2 trials were left neglect errors. Telling Time: Pt read a clock and determined the time with 83% acc (03/07) - Organization Adding members to categories: WFL - Cognitive Linguistic Supervision/Saftey Awareness of deficits: WNL Being left home alone: WNL Managing medications: Moderate Managing finances: Severe - Executive Function Comments Comments: Pt noted slower cognitive functioning since CVA. Concerned these will impact her complex ADLs Plan - Plan Plan: Will recommend Pt for continued weekly outpatient speech therapy to address mod-severe cognitive impairment characterized by deficits in short-term memory, executive functioning, attention, following directions and completing complex ADL's such as finance and medication management, Pt would benefit from training in compensatory strategies to aid her memory, as well as cognitive training to improve cognitive functioning. Without treatment, Pt will be at risk to struggle to complete tasks of daily living and decrease level of independence. - Recommendations MBS: No Treatment Warranted: Yes Treatment Warranted: Cognition - Progress Prognosis: Excellent - Frequency Frequency: 1-2x /Week Duration: 2-4 Months - Goals that are Established Determination:: Goals will be added/modified as deemed necessary and appropriate. Therapy will be discontinued when results of re-evaluation indicate therapy is no longer needed or lack of progress has been documented. - Goal #1-5 Goal #1: Pt independently will complete complex problem solving, reasoning, and executive function tasks including but not limited to functional ADL (i.e. managing finances, safety awareness, paying bills, medication management, meal planning, using cellphone) with 90% acc during 2/3 sessions. Goal #2: Pt will complete basic to mod complex immediate, short-term, and working memory tasks with 90% acc independently across 3/4 measured opportunities. Goal #3: Pt will complete basic to mod complex sustained, alternating, divided attention tasks with 90% acc independently across ? measured opportunities. Goal #4: Pt will modify environment at home via implementing memory compensatory strategies within 4 weeks' time of their initial evaluation as measured by scores of 3 on a self-report checklist during 2/3 sessions. Goal #5: Pt will independently utilize scanning techniques and compensatory strategies to address her left neglect Education - Patient has Indicated that the Following Identified Educational Needs: None, Cognitively Impaired The Patient has indicated that they have no educational or learning abilities that may effect their care.: Yes - Patient Instruction Patient Education: Diagnosis, Treatment Plan, Goals Person Taught: Patient Teaching Method: Discussion, Demonstration Response to teaching: Verbalize understanding
== END 2022-11-02 19:00 | disposition home or self-care (01) ==
LOC: SP 09:00
PROVIDERS: PCP Internal Medicine; Referring Provider Internal Medicine; Visit Provider Internal Medicine
DX: I69.219 Unspecified symptoms and signs involving cognitive functions following other nontraumatic intracranial hemorrhage; R47.01 Aphasia
CPT/HCPCS: 92507; 92523; 97110; 97112; 97129; 97130; 97162; 97164; 97166; 97530

== ENCOUNTER 2022-11-15 17:52 | Observation (INO) | payer MEDICARE, SELFPAY ==
[2022-11-15 17:53] VITALS: BP 125/73; PULSE 66; RESP 16; TEMP 36.1; O2SAT 100
--- NOTE | 2022-11-15 18:07 | CT_ITS ---
STUDY: CT BRAIN WITHOUT CONTRAST REASON FOR EXAM: Female, 67 years old. FALL RADIATION DOSAGE (If Supplied By Facility): CTDIvol = ( 44.99 ) mGy, DLP = ( 829.85 ) mGycm TECHNIQUE: Transaxial CT imaging of the brain was performed without administration of intravenous contrast material. Individualized dose optimization techniques were used for this CT. COMPARISON: No relevant priors. FINDINGS: Mild soft tissue swelling and hemorrhage in the scalp.. Status post right frontal parietal craniectomy Normal size ventricles and extra-axial spaces for the patient''s age. Normal white matter tracts of the cerebral hemispheres. Normal basal ganglia and thalami. Normal brainstem. Normal cerebellum. Old infarct in the right frontal parietal region. Tiny right subacute/chronic subdural collection with chronic dural thickening and small air bubbles producing effacement of cortical sulci and minimal mass effect upon the right lateral ventricle without midline shift.. There are no findings of an acute ischemic infarction. Normal visualized paranasal sinuses. CT/Brain/Head without Contrast IMPRESSION: Tiny postsurgical subacute/chronic subdural effusion and dural thickening with mild pneumocephalus No appreciable acute subdural hematoma. However would recommend clinical correlation and follow-up studies if indicated Electronically Signed: Gonzales Snow MD at 19:38 EDT ,
--- NOTE | 2022-11-15 18:35 | EDS_ITS ---
HPI HPI - Fall History of Present Illness Chief Complaint: Fall Detail of Chief Complaint: Blunt head trauma status post fall Informant: patient and spouse/S.O. Occured/Mechanism Occurred: Hours Mechanism/Context: Yes same level fall and Yes slip Narrative: Patient was turning. She slipped. She fell backwards hitting her head against the wall. She had craniotomy with removal of portion of her skull on the right due to osteomyelitis. She states she struck the left side of her head against the wall She is complaining of a severe headache Fall from Height (ft): Standing Usually ambulates: Without assistance Pain/Injury Location: Head Pain Location: head Quality of Pain: Dull and Aching Current Severity: Severe Maximum Severity: Severe Worsened by: Nothing specific Relieved by: Nothing Associated Symptoms Associated Symptoms: Negative for Parasthesias, Weakness, Loss of function, Inability to ambulate, Loss of consciousness or Amnesia Narrative Narrative: Patient is a 67-year-old woman who earlier this year had a hemorrhagic stroke which 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 She underwent recent craniotomy to remove the skull. She is presently on IV antibiotics at home. She complains of significant headache after hitting her head against the wall. Tetanus Immunization: <5 years Prior similar symptoms: No Recent Illness/Hospitalization: Yes PFSH [facility] Medical History Abdominal adhesions Anxiety Chronic back pain Diabetes mellitus, type 2 History of ectopic History of hemorrhagic cerebrovascular accident (CVA) without residual deficits Hyperlipidemia Hypertension Stroke/cerebrovascular accident Home Medications rosuvastatin 20 mg tablet (Crestor) 10 mg PO QHS Cholestrol 10/03/15 [History Last Taken Unknown] levothyroxine 75 mcg tablet 75 mcg PO DAILY Thyroid 07/24/22 [History Last Taken Unknown] acetaminophen 500 mg tablet 1,000 mg PO Q6H PRN PRN Pain Score 1-3 #0 tabs 07/30/22 [Rx Last Taken Unknown] amlodipine 10 mg tablet 10 mg PO DAILY BP #30 tabs 08/14/22 [Rx Last Taken Unknown] bupropion HCl 75 mg tablet 75 mg PO BID #60 tabs 08/14/22 [Rx Last Taken Unknown] carvedilol 6.25 mg tablet (Coreg) 6.25 mg PO BID BP #60 tabs 08/14/22 [Rx Last Taken Unknown] dulaglutide 4.5 mg/0.5 mL subcutaneous pen injector (Trulicity) 4.5 mg (0.5 mL) subcut WILCOX@1300 DM #4 pens 08/14/22 [Rx Last Taken Unknown] duloxetine 20 mg capsule,delayed release 20 mg PO DAILY #30 caps 08/14/22 [Rx Last Taken Unknown] empagliflozin 10 mg tablet (Jardiance) 10 mg PO DAILY@0800 Check with primary doctor #30 tabs 08/14/22 [Rx Last Taken Unknown] lisinopril 10 mg tablet 10 mg PO DAILY #30 tabs 08/14/22 [Rx Last Taken Unknown] magnesium chloride 64 mg (magnesium chloride) tablet,delayed release (Mag 64) 128 mg PO DAILY #30 tabs 08/14/22 [Rx Last Taken Unknown] metformin 500 mg tablet 250 mg PO BIDCM #60 tabs 08/14/22 [Rx Last Taken Unknown] pantoprazole 40 mg tablet,delayed release 40 mg PO DAILY #30 tabs 08/14/22 [Rx Last Taken Unknown] pregabalin 75 mg capsule 75 mg PO QHS #30 caps 08/14/22 [Rx Last Taken Unknown] tamsulosin 0.4 mg capsule 0.4 mg PO DAILY Urine retention #30 caps 08/14/22 [Rx Last Taken Unknown] tramadol 50 mg tablet 50 mg PO Q6H PRN PRN Pain Score 1-10 #28 tabs 08/14/22 [Rx Last Taken Unknown] potassium chloride 20 mEq tablet,extended release 20 meq PO DAILY #30 tabs 08/16/22 [Rx Last Taken Unknown] Allergy/AdvReac Type Severity Reaction Status Date / Time latex Allergy Rash Verified 11/15/22 17:53 naproxen Allergy Rash Verified 11/15/22 17:53 Iuzvpqt-BEB-RiZ Reductase Allergy MUSCLE Verified 11/15/22 17:53 Inhibitor ACHES [Dqtdyfb-Jhp-Gpz Reductase Inhibitor] Family History Other CVA (cerebral vascular accident) Diabetes Surgical History History of bunionectomy History of open heart surgery History of vein stripping Hx of craniotomy Previous back surgery Social History household members: spouse housing: other details: One-story house with 2 steps to enter the house Smoking Status: Never smoker alcohol intake: never substance use type: does not use ROS ROS ED Constitutional Constitutional ED: Denies chills, fever(s) or subjective Eyes Eyes: Denies blurry vision, change in vision or diplopia ENT ENT ED: Denies rhinorrhea Cardiovascular Cardiovascular: Denies palpitations or racing heartbeat Gastrointestinal Gastrointestinal: Denies nausea or vomiting Musculoskeletal Musculoskeletal: Denies arthralgias, back pain, myalgias or neck pain Integumentary Denies rash Neurologic Neurologic: Reports headache(s); Denies paresthesias or weakness Psychiatric Psychiatric: Denies anxiety or depression Hematologic/Lymphatic Hematologic/Lymphatic: Denies easy bleeding or easy bruising EXAM Physical Exam Const Vital Signs: 11/15/22 17:53 11/15/22 18:46 Temperature 97.0 F L Temperature Source Temporal Pulse Rate 66 Respiratory Rate 16 Respiratory Effort Normal Non-Labored Respiratory Depth Normal Respiratory Pattern Normal Blood Pressure 125/73 H Blood Pressure Mean 90 Pulse Ox 100 Oxygen Delivery Method Room Air Room Air Positive well nourished and well developed General Appearance ED: well developed; Negative for NAD HEENT Reports TM's normal bilaterally; Denies normocephalic atraumatic Eyes PERRL and EOMs intact bilaterally Neck full ROM, no lymphadenopathy and supple Resp normal respiratory effort, no retractions and clear to auscultation bilaterally Cardio regular rate, regular rhythm, S1 normal heart sound, S2 normal heart sound and no murmurs GI non-tender, non-distended and no masses Inspection: abdominal distention Back/Spine no CVA tenderness Thoracic Spine / Upper Back: ROM limited Extremity Extremity Narrative: Unremarkable Neuro oriented x3, CN's II-XII intact bilaterally, moves all extremities, no focal motor deficits and no sensory deficits noted Luann Coma Scale: document GCS findings Spontaneous Obeys Commands Oriented 15 Sensorium / Orientation: alert Psych mental status grossly normal and thought process normal MDM MDM MDM Narrative Medical decision making narrative: With complaint of severe headache after trauma and the fact that she is status post craniotomy will obtain a CAT scan to rule out hemorrhage. Patient was medicated with Zofran and morphine for her pain. Prior records reviewed Radiography Diagnostic Testing: Clinical Impression(s) from Imaging Studies Brain CT 11/15/22 18:07 IMPRESSION: Tiny postsurgical subacute/chronic subdural effusion and dural thickening with mild pneumocephalus No appreciable acute subdural hematoma. However would recommend clinical correlation and follow-up studies if indicated Electronically Signed: Gonzales Snow MD at 19:38 EDT Reading Location ID and State: [facility] / [place] , Service support , CT of the head reveals no abnormality in the site of trauma. There is evidence of pneumocephalus most likely due to recent surgery. There is also evidence of a chronic possible subacute subdural. There is no evidence of an acute subdural hematoma. In light of no acute findings patient was discharged home with a home instructions. Discharge Plan Triage Chief Complaint: Fall ED Provider: Orlando Méndez Dx/Rx/DC Orders Clinical Impression: Concussion without loss of consciousness, Pneumocephalus, Status post craniotomy, Chronic subdural hematoma Instructions: ED Concussion Prescriptions: No Action rosuvastatin [Crestor] 20 MG tablet 10 mg PO QHS levothyroxine 75 mcg Tablet 75 mcg PO DAILY acetaminophen 500 mg Tablet 1,000 mg PO Q6H PRN PRN (Reason: Pain Score 1-3) Qty: 0 0RF bupropion HCl 75 mg Tablet 75 mg PO BID Qty: 60 0RF metformin 500 mg Tablet 250 mg PO BIDCM Qty: 60 0RF lisinopril 10 mg Tablet 10 mg PO DAILY Qty: 30 0RF pregabalin 75 mg Capsule 75 mg PO QHS Qty: 30 0RF pantoprazole 40 mg Tablet,Delayed Release (Dr/Ec) 40 mg PO DAILY Qty: 30 0RF duloxetine 20 mg Capsule,Delayed Release(Dr/Ec) 20 mg PO DAILY Qty: 30 0RF Mag 64 64 mg Tablet,Delayed Release (Dr/Ec) 128 mg PO DAILY Qty: 30 0RF carvedilol [Coreg] 6.25 mg Tablet 6.25 mg PO BID Qty: 60 0RF tramadol 50 mg tablet 50 mg PO Q6H PRN PRN (Reason: Pain Score 1-10) Qty: 28 0RF tamsulosin 0.4 mg Capsule 0.4 mg PO DAILY Qty: 30 0RF amlodipine 10 mg Tablet 10 mg PO DAILY Qty: 30 0RF Jardiance 10 mg tablet 10 mg PO DAILY@0800 Qty: 30 0RF Trulicity 4.5 mg/0.5 mL Pen Injector 4.5 mg SUBCUT WILCOX@1300 Qty: 4 0RF potassium chloride 20 mEq tablet extended release 20 meq PO DAILY Qty: 30 0RF Primary Care Provider: Flaquita Fink Referrals: Flaquita Fink MD [Primary Care Provider] - Activity Restrictions/Additional Instructions: Recommend not taking ibuprofen or Aleve or any NSAIDs. Take ibuprofen or your pain medicine prescribed for headache. Disposition Disposition: Home, Self Care
[2022-11-15 18:46] VITALS: BMI 33.5
[2022-11-15 18:52] VITALS: BP 135/85; PULSE 67; O2SAT 97
[2022-11-15] MEDS: Ondansetron 4 MG/2 ML Vial IV (18:53)
[2022-11-15] MEDS: Morphine 4 MG/ML Syringe IV (18:53)
[2022-11-15 20:00] VITALS: BP 127/75; PULSE 64; O2SAT 97
[2022-11-15 21:00] VITALS: BP 133/80; PULSE 63; O2SAT 96
--- NOTE | 2022-11-15 21:42 | PCM.HP.STD ---
HPI - General General Date of Admission: 11/15/22 Date of Service: 11/15/22 Chief Complaint: Fall HPI Narrative HARSHAL AKERS, is a 67 F with a significant history of hypertension, and diabetes mellitus patient was examined and who recently had a complicated hemorrhagic stroke with resultant osteomyelitis of the skull and subsequent craniotomy presenting with a fall. Patient and her family think that she was discharged from [facility] where she had a craniectomy too early and that she should have gone for rehabilitation. Patient walks with a walker and has a poor balance. Her is unable to help take care of her. Reportedly she fell because of complications with her walker; and poor strength. [facility] Medical History (Updated 11/15/22 @ 22:[address] Adalberto Kelly MD) Abdominal adhesions Anxiety Chronic back pain Diabetes mellitus, type 2 History of ectopic History of hemorrhagic cerebrovascular accident (CVA) without residual deficits Hyperlipidemia Hypertension Stroke/cerebrovascular accident Home Medications rosuvastatin 20 mg tablet (Crestor) 10 mg PO QHS Cholestrol 10/03/15 [History Last Taken Unknown] levothyroxine 75 mcg tablet 75 mcg PO DAILY Thyroid 07/24/22 [History Last Taken Unknown] acetaminophen 500 mg tablet 1,000 mg PO Q6H PRN PRN Pain Score 1-3 #0 tabs 07/30/22 [Rx Last Taken Unknown] amlodipine 10 mg tablet 10 mg PO DAILY BP #30 tabs 08/14/22 [Rx Last Taken Unknown] bupropion HCl 75 mg tablet 75 mg PO BID #60 tabs 08/14/22 [Rx Last Taken Unknown] carvedilol 6.25 mg tablet (Coreg) 6.25 mg PO BID BP #60 tabs 08/14/22 [Rx Last Taken Unknown] dulaglutide 4.5 mg/0.5 mL subcutaneous pen injector (Trulicity) 4.5 mg (0.5 mL) subcut WILCOX@1300 DM #4 pens 08/14/22 [Rx Last Taken Unknown] duloxetine 20 mg capsule,delayed release 20 mg PO DAILY #30 caps 08/14/22 [Rx Last Taken Unknown] empagliflozin 10 mg tablet (Jardiance) 10 mg PO DAILY@0800 Check with primary doctor #30 tabs 08/14/22 [Rx Last Taken Unknown] lisinopril 10 mg tablet 10 mg PO DAILY #30 tabs 08/14/22 [Rx Last Taken Unknown] magnesium chloride 64 mg (magnesium chloride) tablet,delayed release (Mag 64) 128 mg PO DAILY #30 tabs 08/14/22 [Rx Last Taken Unknown] metformin 500 mg tablet 250 mg PO BIDCM #60 tabs 08/14/22 [Rx Last Taken Unknown] pantoprazole 40 mg tablet,delayed release 40 mg PO DAILY #30 tabs 08/14/22 [Rx Last Taken Unknown] pregabalin 75 mg capsule 75 mg PO QHS #30 caps 08/14/22 [Rx Last Taken Unknown] tamsulosin 0.4 mg capsule 0.4 mg PO DAILY Urine retention #30 caps 08/14/22 [Rx Last Taken Unknown] tramadol 50 mg tablet 50 mg PO Q6H PRN PRN Pain Score 1-10 #28 tabs 08/14/22 [Rx Last Taken Unknown] potassium chloride 20 mEq tablet,extended release 20 meq PO DAILY #30 tabs 08/16/22 [Rx Last Taken Unknown] Allergy/AdvReac Type Severity Reaction Status Date / Time latex Allergy Rash Verified 11/15/22 17:53 naproxen Allergy Rash Verified 11/15/22 17:53 Omecyyo-BND-IeH Reductase Allergy MUSCLE Verified 11/15/22 17:53 Inhibitor ACHES [Ocqxxat-Znw-Tkg Reductase Inhibitor] Family History Other CVA (cerebral vascular accident) Diabetes Surgical History History of bunionectomy History of open heart surgery History of vein stripping Hx of craniotomy Previous back surgery Social History household members: spouse housing: other details: One-story house with 2 steps to enter the house Smoking Status: Never smoker alcohol intake: never substance use type: does not use ROS ROS Narrative Pertinent positives and pertinent negatives as noted in HPI. All other systems were reviewed and are negative Vital Signs Vital Signs Vital Signs: 11/15/22 17:53 11/15/22 18:46 Temperature 97.0 F L Temperature Source Temporal Pulse Rate 66 Respiratory Rate 16 Respiratory Effort Normal Non-Labored Respiratory Depth Normal Respiratory Pattern Normal Blood Pressure 125/73 H Blood Pressure Mean 90 Pulse Ox 100 Oxygen Delivery Method Room Air Room Air Weight Weight: 85.684 kg Body Mass Index (BMI) 33.5 Physical Exam Narrative Physical exam: General: Well-nourished, well-developed. Head: No skull at right side of head; sutures in place. Eyes: Vision is grossly intact. EOMI ENT, no trauma, moist mucous membranes, no rhinorrhea Neck: Nontender, No thyromegaly. CVS: Regular rate and rhythm. S1-S2 present. No murmur, gallop or rub. Respiratory : clear to auscultation bilaterally, chest wall nontender Abdomen: Soft, nontender, nondistended, normal bowel sounds, no masses : Deferred Back: Nontender, no CVA tenderness, no midline spinal tenderness, deformities, step-offs Extremities: Nontender full range of motion, no trauma Skin: Normal color, no trauma, abrasions Neuro: Alert, oriented, cranial nerves II through XII grossly intact. Psychiatry: Normal mood. Normal affect. Not depressed. Not anxious. Results Radiology Impression Brain CT 11/15/22 18:07 IMPRESSION: Tiny postsurgical subacute/chronic subdural effusion and dural thickening with mild pneumocephalus No appreciable acute subdural hematoma. However would recommend clinical correlation and follow-up studies if indicated Electronically Signed: Gonzales Snow MD at 19:38 EDT Reading Location ID and State: [facility] / [place] , Service support , Assessment & Plan Assessment/Plan (1) Fall: (2) Inability to walk: (3) Osteomyelitis of skull: (4) Hypertension: (5) Diabetes mellitus, type 2: PLAN: Plan Fall and inability to walk CT of brain interpreted by radiologist as post surgical findings. CT of brain was interpreted by hospitalist, agrees with radiologist interpretation. PT and OT to work with patient for training; balance ; and assessment on whether patient needs rehabilitation. Case management consult for disposition. Osteomyelitis of skull CBC showed normal white counts. Trend. Continue home IV medications. Hypertension Blood pressure is stable Home blood pressure medication continued Trend blood pressures. Diabetes mellitus Blood glucose is stable. Home hypoglycemic regimen continue. Accu-Chek with correction scale insulin ordered. DVT prophylaxis: SCDs ordered. With recent hemorrhagic stroke will avoid chemical prophylaxis at this time. Charges/Coding Visit Charges Inpatient E&M: 08320 Init Hosp L3
[2022-11-15 22:00] VITALS: BP 121/74; PULSE 66; RESP 14; TEMP 36.6; O2SAT 99
[2022-11-15 23:03] VITALS: BMI 32.1
[2022-11-15 23:55] VITALS: BP 139/78; PULSE 64; RESP 18; TEMP 37; O2SAT 97
[2022-11-16] LABS: Bedside Glucose 118 mg/dL (74-106)
[2022-11-16] MEDS: Cefepime HCl 2 GM in 0.9% NS 100 ML Minibag Q8 IV ×4 (00:01→22:49)
[2022-11-16] MEDS: 0.9% Saline Lock 10 ML Syringe IV (00:03)
[2022-11-16 05:55] VITALS: BP 123/75; PULSE 72; RESP 16; TEMP 37.2; O2SAT 95
[2022-11-16 06:09] LABS: Absolute Lymphocyte Count 2.56 X10^3/uL (0.83-4.51); Absolute Neutrophil Count 3.8 X10^3/uL (2.0-7.7); Basophil# 0.06 X10^3/uL; Basophil% 0.8 % (0-1); Eosinophil# 0.27 X10^3/uL; Eosinophils% 3.7 % (0-5); Hematocrit 28.2 % (37-47); Hemoglobin 9.3 g/dL (12.0-15.0); Lymphocyte # 2.56 X10^3/ul (0.83-4.51); Lymphocyte % 34.9 % (19-41); Mean Platelet Vol. 10.5 fl (6.2-12.0); Monocyte# 0.63 X10^3/uL; Monocyte% 8.6 % (0-10); NRBC Flagged by Analyzer 0 % (0-5); Neutrophil # 3.81 X10^3/uL (2.7-7.7); Neutrophil % 51.9 % (47-70); Platelet Count 244 K/mm3 (150-450); RBC Distribution Width CV 14.4 % (11.6-14.6); RBC Distribution Width SD 47.2 fl (35.1-43.9); White Blood Count 7.3 K/mm3 (4.4-11.0)
[2022-11-16] MEDS: Nystatin Powder 15gm Bottle 1 APPLIC TOPICAL ×3 (06:19→22:37)
[2022-11-16] MEDS: Menthol/Lanolin/Calamine/Znox 113 GM Tube 1 APPLIC TOPICAL ×3 (06:19→22:37)
[2022-11-16] MEDS: Insulin Lispro 100 UNIT/ML INSULN.PEN SC ×3 (06:27→22:41)
[2022-11-16 06:43] LABS: Anion Gap 5 (5-15); BUN 16 mg/dL (7-18); BUN/Creat Ratio 30.6 RATIO (10-20); Calcium,Total 9.4 mg/dL (8.5-10.1); Chloride 108 mmol/L (98-107); Creatinine, Serum 0.52 mg/dL (0.55-1.02); EST Glomerular Filtration Rate 124 mL/min (>60); Est Glom Filt Rate - Afr Amer 150 mL/min (>60); Estimated Creatinine Clearance 44.54 ml/min; Glucose 173 mg/dL (74-106); Potassium 3.8 mmol/L (3.5-5.1); Sodium Level 139 mmol/L (136-145); Thyroid Stim Hormone (TSH) 2.83 uIU/mL (0.358-3.74)
[2022-11-16 06:50] LABS: Bedside Glucose 167 mg/dL (74-106)
[2022-11-16 07:29] VITALS: O2SAT 94
[2022-11-16] MEDS: Aspirin 81 MG TAB.CHEW PO (07:34)
[2022-11-16] MEDS: Cholecalciferol (VIT D3) 25 MCG TABLET (1,000 UNITS) 50 MCG PO (07:34)
[2022-11-16] MEDS: amLODIPine 10 MG Tablet PO (07:34)
[2022-11-16] MEDS: buPROPion 75 MG Tablet PO ×2 (07:34→22:39)
[2022-11-16] MEDS: Pantoprazole Sodium 40 MG Tablet PO (07:35)
[2022-11-16] MEDS: Magnesium Chloride 64 MG Delay Rel.Tablet 128 MG PO (07:35)
[2022-11-16] MEDS: Carvedilol 6.25 MG Tablet PO ×2 (07:35→17:16)
[2022-11-16] MEDS: metFORMIN HCl 500 MG Tablet 250 MG PO ×2 (07:35→17:16)
[2022-11-16] MEDS: DULoxetine Hcl 20 MG Capsule PO (07:35)
[2022-11-16] MEDS: Empagliflozin 10 MG Tablet PO (07:40)
[2022-11-16] MEDS: Lisinopril 20 MG Tablet PO (07:40)
[2022-11-16] MEDS: Potassium Chloride Oral Tablet 20 MEQ PO (07:41)
[2022-11-16] MEDS: Tamsulosin HCl 0.4 MG Capsule PO (07:48)
--- NOTE | 2022-11-16 07:50 | PN.HOSP_ITS ---
Reason for Visit Reason for Visit: Diagnoses Type 2 diabetes mellitus without complications (11/15/22) Essential (primary) hypertension (11/15/22) Osteomyelitis, unspecified (11/15/22) Difficulty in walking, not elsewhere classified (11/15/22) Unspecified fall, initial encounter (11/15/22) Subjective Subjective Patient with no acute events overnight since admission for self and per nursing report. Discussed patient's current status with her and her spouse at length and from discussions unfortunately patient appears to been discharged from [facility] with no home health care or skilled facility assessments with unfortunately difficulty with ambulation despite usage of walker and fall. She denies any pain at this time. She does states she supposed to have follow-up with neurosurgery on the coming Saturday. Patient is highly amenable to consideration for rehab if a available. Patient denies fevers, chills, nausea, emesis, abdominal pain, chest pain or dyspnea. Objective Data Objective Data Vital Signs: Vital Signs Temp Pulse Resp BP Pulse Ox O2 Del Method 98.9 F 72 16 123/75 H 94 Room Air 11/16/22 05:55 11/16/22 05:55 11/16/22 05:55 11/16/22 05:55 11/16/22 07:29 11/16/22 07:29 Oxygen Delivery Method Room Air Weight: 181 lb 11.2 oz Body Mass Index (BMI) 32.1 Intake & Output: Intake and Output for Last 24 Hours 11/14/22 11/15/22 11/16/22 23:59 23:59 23:59 Intake Total 1000 / 1000 Balance 1000 / 1000 Lab / Micro Data Result Diagrams: 11/16/22 05:20 11/16/22 05:20 Labs: Laboratory Results - last 24 hr 11/15/22 23:39: POC Glucose 118 H 11/16/22 05:20: WBC 7.3, RBC 3.10 L, Hgb 9.3 L, Hct 28.2 L, MCV 91.0, MCH 30.0, MCHC 33.0, RDW Std Deviation 47.2 H, RDW Coeff of Carmelo 14.4, Plt Count 244, MPV 10.5, Immature Gran % (Auto) 0.100, Neut % (Auto) 51.9, Lymph % (Auto) 34.9, Bracken % (Auto) 8.6, Eos % (Auto) 3.7, Baso % (Auto) 0.8, Absolute Neuts (auto) 3.8, Absolute Lymphs (auto) 2.56, Nucleated RBC % 0 11/16/22 05:20: Sodium 139, Potassium 3.8, Chloride 108 H, Carbon Dioxide 26.0, Anion Gap 5, BUN 16, Creatinine 0.52 L, Estim Creat Clear Calc 44.54, Est GFR (MDRD) Af Amer 150, Est GFR (MDRD) Non-Af 124, BUN/Creatinine Ratio 30.6 H, Glucose 173 H, Calcium 9.4, TSH 2.83 11/16/22 06:18: POC Glucose 167 H Radiography Diagnostic Testing: Radiology Impression Brain CT 11/15/22 18:07 IMPRESSION: Tiny postsurgical subacute/chronic subdural effusion and dural thickening with mild pneumocephalus No appreciable acute subdural hematoma. However would recommend clinical correlation and follow-up studies if indicated Electronically Signed: Gonzales Snow MD at 19:38 EDT , Physical Exam Narrative Physical Examination: General: Awake, alert, oriented x 3 and cooperative, seated upright in medical surgical bed, fatigued appearing. Skin: Normal color, normal turgor, no icterus, no cyanosis except for occasional staged ecchymoses, status post right craniotomy with sutures in place along the right mid and temporal regions with no drainage nor any radha-incisional erythema. HEENT: AT/NC, EOMI, PERRLA, MMM. Lungs: Diminished, moderate effort, mildly decreased bases, no rales, ronchi or wheezing. Heart: Currently regular rate and rhythm; no gallop, rub audible. Abdomen: Soft, obese, NTTP, ND, normal BS. Extremities: No cyanosis, no clubbing, mild peripheral edema with chronic stasis skin changes. Neurological: Patient awake, alert, oriented as noted, cognitive function despi te recent intervention and history of strokes appears baseline intact; pupils equally reactive to light and accommodation, cranial nerves grossly normal, moving all extremities, baseline left sided neglect but not markedly elevated, no focal deficits, sensation appears currently intact. Psychiatric: Affect appears mildly fatigued otherwise normal, no acute evidence of depressive or anxiety feelings. 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 #1. Recent hemorrhagic CVA complicated by postoperative osteomyelitis of the skull: Significantly complicated recent admission at [facility], CT of the head with a tiny postsurgical subacute/chronic subdural effusion and dural thickening with mild pneumocephalus, no appreciable acute subdural hematoma and per discussion with radiology by hospitalist admitting physician consistent with postsurgical findings. Admitted to medical surgical floor, PT and OT as well as case management consulted for skilled facility placement, of note CBC with appropriate WBC and no marked shift, afebrile, maintained on IV cefepime which she had been started on an outpatient facility, will need to ascertain when sutures are supposed to come out and patient reports that she supposed to have follow-up this coming Saturday with neurosurgery but will clarify. Ideally jeane ent would transition to acute rehab, awaiting clarification if this will be possible. #2. Diabetes mellitus type II: Hold oral regimen, ADA diet, accu checks w/ ISS. #3. Hypothyroidism: We will continue patient home levothyroxine regimen, TSH normal level. #4. Hypertension: Continue home regimen including amlodipine, Coreg, lisinopril with hold parameters as needed, PRN hydralazine. #5. Hyperlipidemia: We will continue patient on statin therapy. #6. Anxiety and depression: We will continue patient home bupropion as well as duloxetine home regimen. #7. Chronic back pain: Encourage positional changes, therapies consulted, continue patient home low-dose pregabalin regimen. #8. Urinary retention, history of: We will continue patient home Flomax regimen however this certainly could contribute to her fall risk therefore low threshold to hold if necessary. We will have straight catheterization order if necessary. #9. Chronic normocytic anemia: Admission hemoglobin 9.3, baseline appears 10- 11, will continue to trend and if drops further would obtain iron panel, ferritin as well as guaiac to be cautious. #10. Obesity: Weight loss and lifestyle changes encouraged. #11. GERD: We will continue patient home PPI. #12. DVT prophylaxis: SCDs. #13. CODE status: FULL. Admission Evaluation Time spent evaluating chart, patient history, patient evaluation, care planning and discussion with specialists: 35 minutes. Charges/Coding Visit Charges Inpatient E&M: 65965 Subs Hosp L2
[2022-11-16 08:30] LABS: Bacteria 0 SEEN /hpf (None Seen); Mucous, Urine 0 SEEN /hpf (<or=2+); Red Blood Cells-Urine 0 SEEN /hpf (0-5); White Blood Cells 0 SEEN /hpf (0-5)
[2022-11-16 08:36] LABS: Color, Urine Yellow (Yellow); Glucose, Dipstick Normal (Normal); Ketone-Dipstick Negative (Negative); Leukocyte Esterase-Dipstick Negative /ul (Negative); Nitrite-Dipstick Negative (Negative); Occult Blood-Urine Negative /ul (Negative); Protein-Dipstick 15 mg/dl (Negative); Specific Gravity, Urine 1.015 (1.002-1.030); Urine Bilirubin Dipstick Negative (Negative); Urine Clarity Sl. Cloudy (Clear); Urine Urobilinogen Normal (Normal)
[2022-11-16 08:51] LABS: Squamous Epithelial Cells - UA 0-5 SEEN /hpf (5-10)
[2022-11-16 09:04] VITALS: BP 116/84; PULSE 74; RESP 16; TEMP 36.9; O2SAT 93
[2022-11-16] MEDS: Glucerna Shake 120 ML LIQUID PO ×3 (09:51→17:17)
--- NOTE | 2022-11-16 10:00 | CASEMGMT ---
Social Work SW met w/pt and in room in regard to prior level of function and anticipated discharge. PCP: Aleks Specialists: Dr. Barbosa, neurosurgeon, [facility] Insurance: [facility] Medicare Pharmacy: For [facility], [facility], short term, [facility] LNOK: , step daughter, sister(sister lives in [facility]) LW/POA: Has not completed the documents, may be interested in completing them at some point while here as time allows. Living arrangements/Prior level of function: Pt had a craniotomy one week ago. Prior to this she was independent with all ADLs. Pt's sister had helped her get her medication sorted when she left rehab a few months ago. drives. They do have a cleaning person. Otherwise, she was cooking, cleaning, completing her personal ADLS. Pt had a craniotomy on 11/07 and has not been able to do anything since the. She went home from [facility] on IV antibiotics on 11/14, and brought her in yesterday due to severe weakness. He states she sat in a chair when got home and did not move. DME/SNF/HHC: Pt has a walker, 3 in 1 commode, grab bars. Pt went to our rehab after a stroke in July, then went home w/outpt therapy at [facility]. After that pt worked with a director personal. Pt got an infection and had a craniotomy on 11/07 at [facility]. She went home w/home care through [facility]([phone]). Pt was on IV Meropenem at home. Plan: SNF vs Rehab. SW spoke w/pt and at length. They explained after the craniotomy pt never got PT/OT at [facility] and they sent her home, she has not been able to do anything since home. Pt had a stroke in June, was life flighted to [facility], and then came back here for rehab. SW provided to pt and list of [facility] facilities via [employer] in pt's insurance network, preferred geographic area, and complete with quality and resource use data. Physician walked in while SW speaking w/pt and . We spoke about rehab, pt would prefer rehab, and TCU would be the second choice. Physician in agreement with this plan. SW explained will make referral and let them know. SW spoke w/Samra in rehab/TCU. She will speak w/physician and let SW if rehab would consider taking pt again. SW will continue to follow. TOBIN Bond
[2022-11-16 11:19] VITALS: BP 101/60; PULSE 64; RESP 16; TEMP 37; O2SAT 98
[2022-11-16 11:30] LABS: Bedside Glucose 160 mg/dL (74-106)
--- NOTE | 2022-11-16 11:34 | CASEMGMT ---
KELLEY CM in to discuss PLASCENCIA form with patient. RN CM explained PLASCENCIA form, patient voiced understanding. Pt signed form and filed in chart. Pt provided with a copy of signed PLASCENCIA form. Patient had no further questions or concerns at this time.
--- NOTE | 2022-11-16 11:44 | CASEMGMT ---
Addendum entered by Mary Wang 11/16/22 12:35: Social Work SW let pt know that we are starting precert for rehab, though we may not here this weekend and pt will be here until Saturday. Samra in rehab did say if rehab cannot take pt we will try for TCU, SW let pt know this as well. SW will continue to follow. TOBIN Bond Original Note: Social Work Pt is accepted in to rehab, Samra will start precert once PT/Ot documented. The evaluations are in now, Samra will start precert. TOBIN Bond
[2022-11-16] MEDS: traMADol 50 MG Tablet PO (12:39)
[2022-11-16 16:10] VITALS: BP 110/62; PULSE 74; RESP 16; TEMP 36.8; O2SAT 97
[2022-11-16 16:24] LABS: Bedside Glucose 125 mg/dL (74-106)
[2022-11-16 22:00] VITALS: BP 104/79; PULSE 65; RESP 18; TEMP 36.9; O2SAT 97
[2022-11-16] MEDS: traZODone 50 MG Tablet PO (22:40)
[2022-11-17 00:45] LABS: Bedside Glucose 157 mg/dL (74-106)
[2022-11-17 06:00] VITALS: BP 117/71; PULSE 66; RESP 16; TEMP 36.9; O2SAT 94
[2022-11-17] MEDS: Cefepime HCl 2 GM in 0.9% NS 100 ML Minibag Q8 IV ×3 (06:13→22:05)
[2022-11-17] MEDS: Nystatin Powder 15gm Bottle 1 APPLIC TOPICAL ×3 (06:14→22:07)
[2022-11-17] MEDS: Menthol/Lanolin/Calamine/Znox 113 GM Tube 1 APPLIC TOPICAL ×3 (06:14→22:06)
--- NOTE | 2022-11-17 06:24 | PCM.PN.HOSP ---
Reason for Visit Reason for Visit: Diagnoses Type 2 diabetes mellitus without complications (11/15/22) Essential (primary) hypertension (11/15/22) Nontraumatic intracerebral hemorrhage, unspecified (11/15/22) Osteomyelitis, unspecified (11/15/22) Difficulty in walking, not elsewhere classified (11/15/22) Unspecified fall, initial encounter (11/15/22) Subjective Subjective Patient with no acute events overnight per self and per nursing staff. She states that with therapy and assistance she has been moving with greater ease in the room using a walker but still does feel very weak and debilitated. She remains amenable for plan for possible rehab versus TCU transition once insurance precertification has been obtained. Again reviewed plan of care as discussed patient's status with her neurosurgeon the day prior and will plan removal of her sutures Saturday with plan for outpatient follow-up with their service in 4 to 8 weeks. Patient denies fevers, chills, nausea, emesis, abdominal pain, chest pain or dyspnea. Objective Data Objective Data Vital Signs: Vital Signs Temp Pulse Resp BP Pulse Ox O2 Del Method 98.4 F 65 18 104/79 97 Room Air 11/16/22 22:00 11/16/22 22:00 11/16/22 22:00 11/16/22 22:00 11/16/22 22:00 11/17/22 00:00 Oxygen Delivery Method Room Air Weight: 181 lb 11.2 oz Body Mass Index (BMI) 32.1 Intake & Output: Intake and Output for Last 24 Hours 11/15/22 11/16/22 11/17/22 23:59 23:59 23:59 Intake Total 1950.0 / 1950.0 100 / 100 Output Total 3000 / 4000 1000 / 1000 Balance -1050.0 / -2050.0 -900 / -900 Medical Nutrition Assessment Dietitian: Malnutrition Criteria Met Start: 11/16/22 12:29 Freq: Status: Active Protocol: Document 11/16/22 12:29 QING (Rec: 11/16/22 12:29 QING [id number]) Nutrition Malnutrition Evidence of Malnutrition Exists Yes Malnutrition (severe): Chronic Evidenced By Suboptimal Energy Intake ( Severe),Weight Loss (Severe) Clinical Problem Chronic Disease or Condition Related Malnutrition Etiology related to inadequate energy intake Signs/Symptoms as evidenced by 9.8% unintended wt loss and 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 Problem Recommendation Dietitian Recommendations/Changes Continue 1800 shivam Consistent CHO diet Continue glucerna shake 4x/day w/ medpass Lab / Micro Data Result Diagrams: 11/17/22 06:15 11/17/22 06:15 Labs: Laboratory Results - last 24 hr 11/16/22 05:20: Sodium 139, Potassium 3.8, Chloride 108 H, Carbon Dioxide 26.0, Anion Gap 5, BUN 16, Creatinine 0.52 L, Estim Creat Clear Calc 44.54, Est GFR (MDRD) Af Amer 150, Est GFR (MDRD) Non-Af 124, BUN/Creatinine Ratio 30.6 H, Glucose 173 H, Calcium 9.4, TSH 2.83 11/16/22 06:18: POC Glucose 167 H 11/16/22 08:00: Urine Color Yellow, Urine Clarity Sl. Cloudy, Urine pH 6.0, Ur Specific [place] 1.015, Urine Protein 15 H, Urine Glucose (UA) Normal, Urine Ketones Negative, Urine Occult Blood Negative, Urine Nitrite Negative, Urine Bilirubin Negative, Urine Urobilinogen Normal, Ur Leukocyte Esterase Negative, Urine RBC 0 SEEN, Urine WBC 0 SEEN, Ur Squamous Epith Cells 0-5 SEEN, Urine Bacteria 0 SEEN, Urine Mucus 0 SEEN 11/16/22 11:02: POC Glucose 160 H 11/16/22 16:02: POC Glucose 125 H 11/16/22 22:35: POC Glucose 157 H Physical Exam Narrative Physical Examination: General: Awake, alert, oriented x 3 and cooperative, seated upright in medical surgical bed, talkative, interactive. Skin: Normal color, normal turgor, no icterus, no cyanosis except for occasional staged ecchymoses, status post right craniotomy with sutures in place along the right mid and temporal regions with no drainage nor any radha-incisional erythema. HEENT: AT/NC, EOMI, PERRLA, MMM. Lungs: Diminished, moderate effort, mildly decreased bases, no rales, ronchi or wheezing. Heart: Regular rate and rhythm; no gallop, rub audible. Abdomen: Soft, obese, NTTP, ND, normal BS. Extremities: No cyanosis, no clubbing, mild peripheral edema with chronic stasis skin changes. Neurological: Patient awake, alert, oriented as noted, cognitive function despite recent intervention and history of strokes appears baseline intact; pupils equally reactive to light and accommodation, cranial nerves grossly normal, moving all extremities, baseline left sided neglect but not markedly elevated, no focal deficits, sensation appears currently intact. Psychiatric: Affect appears normal, more interactive, no acute evidence of depressive or anxiety feelings. 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 #1. Recent hemorrhagic CVA complicated by postoperative osteomyelitis of the skull: Significantly complicated recent admission at [facility], CT of the head with a tiny postsurgical subacute/chronic subdural effusion and dural thickening with mild pneumocephalus, no appreciable acute subdural hematoma and per discussion with radiology by hospitalist admitting physician consistent with postsurgical findings. Admitted to medical surgical floor, PT and OT as well as case management consulted for skilled facility placement, no marked WBC elevation or left shift, will continue IV cefepime per recent discharge for osteomyelitis but will clarify for discharge to skilled versus rehab when patient needs to have labs performed and where these results should be faxed, discussed case and presentation 11/16/2022 with patient's Neurosurgeon at [facility] Dr. Jain who agreed with her current care and requested removal of the sutures 11/19/2022 and follow-up with his service outpatient in 4 to 8 weeks unless concerns arise. Still awaiting insurance precertification. #2. Diabetes mellitus type II: Hold oral regimen, ADA diet, accu checks w/ ISS. #3. Hypothyroidism: We will continue patient home levothyroxine regimen, TSH normal level. #4. Hypertension: Continue home regimen including amlodipine, Coreg, lisinopril with hold parameters as needed, PRN hydralazine. #5. Hyperlipidemia: We will continue patient on statin therapy. #6. Anxiety and depression: We will continue patient home bupropion as well as duloxetine home regimen. #7. Chronic back pain: Encourage positional changes, therapies consulted, continue patient home low-dose pregabalin regimen. #8. Urinary retention, history of: We will continue patient home Flomax regimen however this certainly could contribute to her fall risk therefore low threshold to hold if necessary. We will have straight catheterization order if necessary. #9. Chronic normocytic anemia: Admission hemoglobin 9.3, baseline appears 10-11, 11/17/2022 hemoglobin 9.5, remained stable, given recent operative intervention certainly could be the reason and as long as remains stable we will continue to monitor but if drops low threshold to further investigate. #10. Obesity: Weight loss and lifestyle changes encouraged. #11. GERD: We will continue patient home PPI. #12. DVT prophylaxis: SCDs. #13. CODE status: FULL. Admission Evaluation Time spent evaluating chart, patient history, patient evaluation, care planning and discussion with specialists: 35 minutes. Charges/Coding Visit Charges Inpatient E&M: 38188 Subs Hosp L2
[2022-11-17 07:03] VITALS: O2SAT 93
[2022-11-17 07:15] LABS: Bedside Glucose 128 mg/dL (74-106)
[2022-11-17 07:18] LABS: Absolute Lymphocyte Count 2.74 X10^3/uL (0.83-4.51); Absolute Neutrophil Count 2.9 X10^3/uL (2.0-7.7); Basophil# 0.07 X10^3/uL; Eosinophil# 0.25 X10^3/uL; Eosinophils% 3.7 % (0-5); Hematocrit 29.9 % (37-47); Hemoglobin 9.5 g/dL (12.0-15.0); Lymphocyte # 2.74 X10^3/ul (0.83-4.51); Lymphocyte % 40.8 % (19-41); Mean Corp Hgb Conc 31.8 g/dL (32-36); Mean Corpuscular Hgb 29.3 pg (27.0-32.0); Mean Corpuscular Volume 92.3 fL (81-99); Mean Platelet Vol. 10.5 fl (6.2-12.0); Monocyte# 0.79 X10^3/uL; Monocyte% 11.8 % (0-10); NRBC Flagged by Analyzer 0 % (0-5); Neutrophil # 2.85 X10^3/uL (2.7-7.7); Neutrophil % 42.4 % (47-70); Platelet Count 255 K/mm3 (150-450); RBC Distribution Width CV 14.3 % (11.6-14.6); RBC Distribution Width SD 48.8 fl (35.1-43.9); Red Blood Count 3.24 M/mm3 (4.2-5.4); White Blood Count 6.7 K/mm3 (4.4-11.0)
[2022-11-17 07:47] LABS: ALB/GLOB Ratio 0.8 RATIO (0.9-2.4); AST(SGOT) 9 U/L (15-37); Alanine Aminotransfer ALT/SGPT 18 U/L (13-56); Alkaline Phosphatase 62 U/L (45-117); Anion Gap 4 (5-15); BUN 16 mg/dL (7-18); BUN/Creat Ratio 26.9 RATIO (10-20); Calcium,Total 9.7 mg/dL (8.5-10.1); Chloride 109 mmol/L (98-107); Creatinine, Serum 0.59 mg/dL (0.55-1.02); EST Glomerular Filtration Rate 107 mL/min (>60); Est Glom Filt Rate - Afr Amer 129 mL/min (>60); Estimated Creatinine Clearance 44.54 ml/min; Globulin 3.7 g/dL (2.2-4.2); Glucose 123 mg/dL (74-106); Potassium 3.9 mmol/L (3.5-5.1); Protein, Total 6.7 g/dL (6.4-8.2); Sodium Level 140 mmol/L (136-145)
[2022-11-17] MEDS: Cholecalciferol (VIT D3) 25 MCG TABLET (1,000 UNITS) 50 MCG PO (08:01)
[2022-11-17] MEDS: buPROPion 75 MG Tablet PO ×2 (08:01→22:05)
[2022-11-17] MEDS: Lisinopril 20 MG Tablet PO (08:01)
[2022-11-17] MEDS: Magnesium Chloride 64 MG Delay Rel.Tablet 128 MG PO (08:01)
[2022-11-17] MEDS: Potassium Chloride Oral Tablet 20 MEQ PO (08:01)
[2022-11-17] MEDS: Aspirin 81 MG TAB.CHEW PO (08:02)
[2022-11-17] MEDS: Empagliflozin 10 MG Tablet PO (08:02)
[2022-11-17] MEDS: Carvedilol 6.25 MG Tablet PO ×2 (08:02→17:07)
[2022-11-17] MEDS: Tamsulosin HCl 0.4 MG Capsule PO (08:02)
[2022-11-17] MEDS: metFORMIN HCl 500 MG Tablet 250 MG PO ×2 (08:03→17:07)
[2022-11-17] MEDS: DULoxetine Hcl 20 MG Capsule PO (08:04)
[2022-11-17] MEDS: amLODIPine 10 MG Tablet PO (08:04)
[2022-11-17] MEDS: Pantoprazole Sodium 40 MG Tablet PO (08:04)
[2022-11-17] MEDS: Glucerna Shake 120 ML LIQUID PO ×3 (08:16→17:07)
[2022-11-17 08:25] VITALS: BP 111/76; PULSE 66; RESP 16; TEMP 36.6; O2SAT 97
[2022-11-17 11:19] VITALS: BP 108/73; PULSE 63; RESP 16; TEMP 36.8; O2SAT 96
[2022-11-17 11:29] LABS: Bedside Glucose 109 mg/dL (74-106)
[2022-11-17] MEDS: Acetaminophen 500 MG Tablet 1000 MG PO ×2 (13:31→19:20)
[2022-11-17] MEDS: traMADol 50 MG Tablet PO ×2 (14:57→22:11)
[2022-11-17 15:22] VITALS: BP 100/56; PULSE 70; RESP 16; TEMP 36.8; O2SAT 97
[2022-11-17 16:28] LABS: Bedside Glucose 148 mg/dL (74-106)
--- NOTE | 2022-11-17 16:33 | CASEMGMT ---
Social Work Patient accepted to rehab and can be transferred tomorrow, 11/18/2022 per Samra in rehab. Ayesha Marquez WINDSCREEN FITTER, BOX TOE BUFFER
[2022-11-17 22:00] VITALS: BP 127/78; PULSE 66; RESP 18; TEMP 37.1; O2SAT 98
[2022-11-17] MEDS: traZODone 50 MG Tablet PO (22:05)
[2022-11-17 22:40] LABS: Bedside Glucose 107 mg/dL (74-106)
[2022-11-18 04:45] VITALS: BP 98/48; PULSE 66; RESP 18; TEMP 36.9; O2SAT 92
[2022-11-18] MEDS: Menthol/Lanolin/Calamine/Znox 113 GM Tube 1 APPLIC TOPICAL (05:26)
[2022-11-18] MEDS: Nystatin Powder 15gm Bottle 1 APPLIC TOPICAL (05:26)
[2022-11-18] MEDS: Cefepime HCl 2 GM in 0.9% NS 100 ML Minibag Q8 IV (05:26)
[2022-11-18 06:15] LABS: Absolute Lymphocyte Count 2.89 X10^3/uL (0.83-4.51); Absolute Neutrophil Count 3.1 X10^3/uL (2.0-7.7); Basophil# 0.06 X10^3/uL; Basophil% 0.8 % (0-1); Eosinophil# 0.28 X10^3/uL; Eosinophils% 3.8 % (0-5); Hematocrit 28.6 % (37-47); Hemoglobin 9.1 g/dL (12.0-15.0); Lymphocyte # 2.89 X10^3/ul (0.83-4.51); Lymphocyte % 39.6 % (19-41); Mean Corp Hgb Conc 31.8 g/dL (32-36); Mean Corpuscular Hgb 29.3 pg (27.0-32.0); Monocyte# 0.93 X10^3/uL; Monocyte% 12.8 % (0-10); NRBC Flagged by Analyzer 0 % (0-5); Neutrophil # 3.12 X10^3/uL (2.7-7.7); Neutrophil % 42.9 % (47-70); Platelet Count 249 K/mm3 (150-450); RBC Distribution Width CV 14.4 % (11.6-14.6); RBC Distribution Width SD 48.2 fl (35.1-43.9); Red Blood Count 3.11 M/mm3 (4.2-5.4); White Blood Count 7.3 K/mm3 (4.4-11.0)
[2022-11-18 06:46] LABS: ALB/GLOB Ratio 0.8 RATIO (0.9-2.4); AST(SGOT) 9 U/L (15-37); Alanine Aminotransfer ALT/SGPT 14 U/L (13-56); Albumin, Serum 2.9 g/dL (3.2-5.0); Alkaline Phosphatase 56 U/L (45-117); Anion Gap 3 (5-15); BUN 18 mg/dL (7-18); BUN/Creat Ratio 26.8 RATIO (10-20); Calcium,Total 8.9 mg/dL (8.5-10.1); Chloride 111 mmol/L (98-107); Creatinine, Serum 0.67 mg/dL (0.55-1.02); EST Glomerular Filtration Rate 93 mL/min (>60); Est Glom Filt Rate - Afr Amer 112 mL/min (>60); Estimated Creatinine Clearance 44.54 ml/min; Globulin 3.8 g/dL (2.2-4.2); Glucose 125 mg/dL (74-106); Protein, Total 6.7 g/dL (6.4-8.2); Sodium Level 142 mmol/L (136-145)
[2022-11-18 07:31] LABS: Bedside Glucose 126 mg/dL (74-106)
[2022-11-18 07:46] VITALS: O2SAT 92
[2022-11-18] MEDS: Cholecalciferol (VIT D3) 25 MCG TABLET (1,000 UNITS) 50 MCG PO (08:02)
[2022-11-18] MEDS: Tamsulosin HCl 0.4 MG Capsule PO (08:02)
[2022-11-18] MEDS: Magnesium Chloride 64 MG Delay Rel.Tablet 128 MG PO (08:02)
[2022-11-18] MEDS: metFORMIN HCl 500 MG Tablet 250 MG PO (08:03)
[2022-11-18] MEDS: Pantoprazole Sodium 40 MG Tablet PO (08:03)
[2022-11-18] MEDS: Lisinopril 20 MG Tablet PO (08:04)
[2022-11-18] MEDS: buPROPion 75 MG Tablet PO (08:04)
[2022-11-18] MEDS: Carvedilol 6.25 MG Tablet PO (08:04)
[2022-11-18] MEDS: DULoxetine Hcl 20 MG Capsule PO (08:04)
[2022-11-18] MEDS: Aspirin 81 MG TAB.CHEW PO (08:04)
[2022-11-18] MEDS: Potassium Chloride Oral Tablet 20 MEQ PO (08:04)
[2022-11-18] MEDS: amLODIPine 10 MG Tablet PO (08:05)
[2022-11-18] MEDS: Glucerna Shake 120 ML LIQUID PO (08:12)
[2022-11-18] MEDS: Empagliflozin 10 MG Tablet PO (08:13)
[2022-11-18 08:44] VITALS: BP 123/85; PULSE 71; RESP 16; TEMP 36.9; O2SAT 97
--- NOTE | 2022-11-18 10:32 | PCM.TXEXTCAR ---
Diet Diet Order/Speech Therapy: 11/15/22 22:44 Diet: Cardiac - Heart Healthy Food consistency:: Regular Liquid Consistency:: Regular/Thin Is pt able to select menu?: Yes Diet: Consistent Carb - Calorie Controlled Food consistency:: Regular Liquid Consistency:: Regular/Thin How many daily calories?: 1800 calorie Routine Orders/Code Status Routine Lab Work: - (Fingerstick blood sugars AC nightly, coverage with Humalog subcu: 200-250: 5 units, 251-300: 8 units, 301-350: 12 units) Code Status: Full Code Wound(s) Right cranium: Wound Type: Surgical Incision Dressing Change: Remove scalp sutures on 11/19/2022 Right Lateral: Wound Type: Remove scalp sutures on 11/19/2022 Therapies Weight Bearing: Weight bearing as tolerated Physical Therapy: Eval and Treat Occupational Therapy: Eval and Treat Speech Therapy: Eval and Treat Problem/Diagnosis (1) Hemorrhagic stroke: Status: Resolved Code(s): I61.9 - Nontraumatic intracerebral hemorrhage, unspecified (2) Debility: Status: Acute Code(s): R53.81 - Other malaise (3) Obstructive sleep apnea: Status: Chronic Code(s): G47.33 - Obstructive sleep apnea (adult) (pediatric) Comment: not being treated (4) Cognitive dysfunction: Status: Chronic Code(s): F09 - Unspecified mental disorder due to known physiological condition Comment: due to brain bleed (5) Malnutrition: Status: Chronic Code(s): E46 - Unspecified protein-calorie malnutrition (6) Status post craniotomy: Status: Resolved Code(s): Z98.890 - Other specified postprocedural states (7) Osteomyelitis of skull: Status: Acute Code(s): M86.9 - Osteomyelitis, unspecified (8) Diabetes mellitus, type 2: Status: Chronic Code(s): E11.9 - Type 2 diabetes mellitus without complications (9) Hypertension: Status: Chronic Code(s): I10 - Essential (primary) hypertension Allergies/Procedures Done in Hospital Allergies latex Allergy (Verified 11/15/22 17:53) Rash naproxen Allergy (Verified 11/15/22 17:53) Rash [id number] Reductase Inhibitor [Hzglckz-Iqx-Whn Reductase Inhibitor] Allergy (Verified 11/15/22 17:53) MUSCLE ACHES Procedures: None Type of Care/Length of Stay Estimated LOS: Convalescent Care Less Than 30 days Type of Care Needed: Acute Rehab Rehab Potential: Good Prognosis: Good Additional Orders/Day of Discharge H&P will serve as current which was dated: 11/15/22 Day of Discharge: 11/18/22 Dietary and Speech Recommendations Dietitian Recommendations/Changes: Continue 1800 shivam Consistent CHO diet Continue glucerna shake 4x/day w/ medpass Discharge Plan Admission Admit Date/Time: 11/15/22 21:34 Primary Reason for Your Visit: acute debility Attending Provider: Dewayne Bliss Primary Care Provider: Flaquita Fink Consulting Providers: Adalberto Kelly ; Lisa Quintanilla Instructions Patient Instructions: ED Concussion Additional Instructions / Restrictions: Follow-up with your neurosurgeon and infectious disease physician as directed Discharge Orders/Prescriptions Prescriptions: New nystatin [Nyamyc] 100,000 unit/gram Powder 1 applic topical TID Qty: 0 0RF Protocol: *Topical Application Instructions APPLICATION INSTRUCTIONS: Under bilateral breasts Glucerna 1.2 Shivam 0.06-1.2 gram-kcal/mL Liquid 120 ml PO 4X/DAY Qty: 0 0RF Continued rosuvastatin [Crestor] 20 MG tablet 10 mg PO QHS acetaminophen 500 mg Tablet 1,000 mg PO Q6H PRN PRN (Reason: Pain Score 1-3) Qty: 0 0RF bupropion HCl 75 mg Tablet 75 mg PO BID Qty: 60 0RF metformin 500 mg Tablet 250 mg PO BIDCM Qty: 60 0RF pregabalin 75 mg Capsule 75 mg PO QHS Qty: 30 0RF pantoprazole 40 mg Tablet,Delayed Release (Dr/Ec) 40 mg PO DAILY Qty: 30 0RF duloxetine 20 mg Capsule,Delayed Release(Dr/Ec) 20 mg PO DAILY Qty: 30 0RF Mag 64 64 mg Tablet,Delayed Release (Dr/Ec) 128 mg PO DAILY Qty: 30 0RF carvedilol [Coreg] 6.25 mg Tablet 6.25 mg PO BID Qty: 60 0RF tamsulosin 0.4 mg Capsule 0.4 mg PO DAILY Qty: 30 0RF amlodipine 10 mg Tablet 10 mg PO DAILY Qty: 30 0RF Jardiance 10 mg tablet 10 mg PO DAILY@0800 Qty: 30 0RF potassium chloride 20 mEq tablet extended release 20 meq PO DAILY Qty: 30 0RF cefepime 2 gram Recon Soln 2 g IV Q8H trazodone 50 mg tablet 50 mg PO QHS aspirin 81 mg Tablet 81 mg PO DAILY cholecalciferol (vitamin D3) 50 mcg (2,000 unit) Tablet 50 mcg PO DAILY tramadol 50 mg tablet 50 mg PO BID PRN PRN (Reason: Pain Score 1-10) lisinopril 10 mg tablet 20 mg PO DAILY Referrals / Follow Up: Flaquita Fink MD [Primary Care Provider] - Disposition Disposition (needs filled in before D/C Order can be placed): Inpatient Rehab Unit/Facility
--- NOTE | 2022-11-18 10:46 | PCM.DC.SUM ---
Providers Date of Admission: 11/15/22 Date of Discharge: 11/18/22 Primary Care Physician: Dr. Flaquita Fink MD Reason For Visit: INABILITY TO AMBULATE Diagnosis Discharge Diagnosis (1) Hemorrhagic stroke: Status: Resolved Code(s): I61.9 - Nontraumatic intracerebral hemorrhage, unspecified (2) Debility: Status: Acute Code(s): R53.81 - Other malaise (3) Obstructive sleep apnea: Status: Chronic Code(s): G47.33 - Obstructive sleep apnea (adult) (pediatric) (4) Cognitive dysfunction: Status: Chronic Code(s): F09 - Unspecified mental disorder due to known physiological condition (5) Malnutrition: Status: Chronic Code(s): E46 - Unspecified protein-calorie malnutrition (6) Status post craniotomy: Status: Resolved Code(s): Z98.890 - Other specified postprocedural states (7) Osteomyelitis of skull: Status: Acute Code(s): M86.9 - Osteomyelitis, unspecified (8) Diabetes mellitus, type 2: Status: Chronic Code(s): E11.9 - Type 2 diabetes mellitus without complications (9) Hypertension: Status: Chronic Code(s): I10 - Essential (primary) hypertension Plan 1. Acute debility secondary to recent intracranial surgery and multiple medical problems including diabetes and previous history of hemorrhagic stroke #2 type 2 diabetes #3 osteomyelitis of the skull #4 chronic anxiety/depression #5 hyperlipidemia Medications at Discharge Home Medications rosuvastatin 20 mg tablet (Crestor) 10 mg PO QHS Cholestrol 10/03/15 amlodipine 10 mg tablet 10 mg PO DAILY BP #30 tabs 08/14/22 carvedilol 6.25 mg tablet (Coreg) 6.25 mg PO BID BP #60 tabs 08/14/22 tamsulosin 0.4 mg capsule 0.4 mg PO DAILY Urine retention #30 caps 08/14/22 aspirin 81 mg tablet 81 mg PO DAILY heart 11/15/22 cefepime 2 gram intravenous solution 2 g IV Q8H infection 11/15/22 cholecalciferol (vitamin D3) 50 mcg (2,000 unit) tablet 50 mcg PO DAILY vitamin 11/15/22 lisinopril 10 mg tablet 20 mg PO DAILY bp 11/15/22 tramadol 50 mg tablet 50 mg PO Q8H PRN PRN Pain Score 1-10 11/15/22 trazodone 50 mg tablet 50 mg PO QHS sleep 11/15/22 acetaminophen 500 mg tablet 1,000 mg PO Q8 pain 11/18/22 bupropion HCl 75 mg tablet 75 mg PO BID mood 11/18/22 duloxetine 20 mg capsule,delayed release 20 mg PO DAILY mood 11/18/22 empagliflozin 10 mg tablet (Jardiance) 10 mg PO DAILY@0800 dm 11/18/22 magnesium chloride 64 mg (magnesium chloride) tablet,delayed release (Mag 64) 128 mg PO DAILY vitamin 11/18/22 metformin 500 mg tablet 250 mg PO BIDCM dm 11/18/22 nutrition tx glu intol,lac-free,soy-fiber 0.06 gram-1.2 kcal/mL liquid (Glucerna 1.2 Shivam) 120 ml PO 4X/DAY supp 11/18/22 nystatin 100,000 unit/gram topical powder (Nyamyc) 1 applic topical TID skin 11/18/22 pantoprazole 40 mg tablet,delayed release 40 mg PO DAILY gerd 11/18/22 potassium chloride 20 mEq tablet,extended release 20 meq PO DAILY supp 11/18/22 pregabalin 75 mg capsule 75 mg PO QHS pain 11/18/22 Hospital Course Operations None Procedures None Summary of Care Provided Minutes Spent on Discharge: 31 Hospital Course: This 67-year-old white female was brought to the emergency room at [facility] after the stated that he was unable to care for her at home due to acute debility from recent intracranial surgery for osteomyelitis of the skull. Patient had a's hemorrhagic stroke earlier in the year and she had previously underwent a craniotomy for increased intracranial pressure, this site had become infected and she underwent removal of part of her skull with insertion of a metal plate. Since she had been released from the hospital from that surgery, patient had been weak and debilitated and was brought in for evaluation to the emergency room here. Work-up in the emergency room included CT of the head which revealed no acute abnormality, patient's CBC revealed normal white blood cell count, hemoglobin was 9.3, chemistry profile was unremarkable. Patient was placed in observation status on MedSur 3 and seen by PT and OT, a request was put in to the rehab unit at [facility] for admission there for inpatient rehab services and she was excepted there. On 11/18/2022, patient was seen and examined: On examination she appeared in good health and spirits, she does not appear to be in any distress. Patient has a visible defect in her scalp on the right side from previous craniotomy. Vital signs as documented. Skin warm and dry and without overt rashes. Neck without JVD, thyroid appears normal, trachea is midline, neck is supple. Lungs clear, normal air movement was noted. Heart exam notable for regular rhythm, normal sounds and absence of murmurs, rubs or gallops. Abdomen unremarkable and without evidence of organomegaly, masses, or abdominal aortic enlargement, bowel sounds are present in all 4 quadrants, no abdominal tenderness was noted. Extremities nonedematous, no cyanosis was noted, no clubbing was noted. Neuro: Cranial nerves II through XII are grossly intact, no focal motor deficits were noted, sensation to light touch and pinprick is intact, motor exam 5/5 throughout. Psych: Patient is alert and oriented x3, she does not appear anxious or depressed, she does not appear agitated. On 11/18/2022, patient was seen and examined and felt to be stable for transfer to the rehab unit at [facility] for inpatient rehab services. 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 Problem Recommendation Dietitian Recommendations/Changes Continue 1800 shivam Consistent CHO diet Continue glucerna shake 4x/day w/ medpass Weight / BMI Weight Weight: 82.418 kg Body Mass Index (BMI) 32.1 ABG / Lab / Microbiology Data 11/18/22 05:57 11/18/22 05:57 Laboratory: Laboratory Results - last 24 hr 11/17/22 11:07: POC Glucose 109 H 11/17/22 16:04: POC Glucose 148 H 11/17/22 22:04: POC Glucose 107 H 11/18/22 05:25: POC Glucose 126 H 11/18/22 05:57: WBC 7.3, RBC 3.11 L, Hgb 9.1 L, Hct 28.6 L, MCV 92.0, MCH 29.3, MCHC 31.8 L, RDW Std Deviation 48.2 H, RDW Coeff of Carmelo 14.4, Plt Count 249, MPV 10.0, Immature Gran % (Auto) 0.100, Neut % (Auto) 42.9 L, Lymph % (Auto) 39.6, [place] % (Auto) 12.8 H, Eos % (Auto) 3.8, Baso % (Auto) 0.8, Absolute Neuts (auto) 3.1, Absolute Lymphs (auto) 2.89, Nucleated RBC % 0 11/18/22 05:57: Sodium 142, Potassium 4.0, Chloride 111 H, Carbon Dioxide 28.0, Anion Gap 3 L, BUN 18, Creatinine 0.67, Estim Creat Clear Calc 44.54, Est GFR (MDRD) Af Amer 112, Est GFR (MDRD) Non-Af 93, BUN/Creatinine Ratio 26.8 H, Glucose 125 H, Calcium 8.9, Total Bilirubin 0.40, AST 9 L, ALT 14, Alkaline Phosphatase 56, Total Protein 6.7, Albumin 2.9 L, Globulin 3.8, Albumin/Globulin Ratio 0.8 L Microbiology: Microbiology 11/16/22 08:00 Urine, Catheterized Urine Culture - Final Culture exhibits no growth. Meaningful Use Info Meaningful Use Diagnoses (Choose all that apply): None applicable Discharge Plan Admission Admit Date/Time: 11/15/22 21:34 Primary Reason for Your Visit: acute debility Attending Provider: Dewayne Bliss Primary Care Provider: Flaquita Fink Consulting Providers: Adalberto Kelly; Lisa Quintanilla Instructions Patient Instructions: ED Concussion Additional Instructions / Restrictions: Follow-up with your neurosurgeon and infectious disease physician as directed Discharge Orders/Prescriptions Prescriptions: Continued rosuvastatin [Crestor] 20 MG tablet 10 mg PO QHS carvedilol [Coreg] 6.25 mg Tablet 6.25 mg PO BID Qty: 60 0RF tamsulosin 0.4 mg Capsule 0.4 mg PO DAILY Qty: 30 0RF amlodipine 10 mg Tablet 10 mg PO DAILY Qty: 30 0RF cefepime 2 gram Recon Soln 2 g IV Q8H trazodone 50 mg tablet 50 mg PO QHS aspirin 81 mg Tablet 81 mg PO DAILY cholecalciferol (vitamin D3) 50 mcg (2,000 unit) Tablet 50 mcg PO DAILY tramadol 50 mg tablet 50 mg PO Q8H PRN PRN (Reason: Pain Score 1-10) lisinopril 10 mg tablet 20 mg PO DAILY No Action metformin 500 mg tablet 250 mg PO BIDCM acetaminophen 500 mg tablet 1,000 mg PO Q8 pantoprazole 40 mg tablet,delayed release (DR/EC) 40 mg PO DAILY bupropion HCl 75 mg tablet 75 mg PO BID nystatin [Nyamyc] 100,000 unit/gram powder 1 applic topical TID Protocol: *Topical Application Instructions APPLICATION INSTRUCTIONS: Under bilateral breasts duloxetine 20 mg capsule,delayed release(DR/EC) 20 mg PO DAILY pregabalin 75 mg capsule 75 mg PO QHS Mag 64 64 mg tablet,delayed release (DR/EC) 128 mg PO DAILY Glucerna 1.2 Shivam 0.06-1.2 gram-kcal/mL liquid 120 ml PO 4X/DAY potassium chloride 20 mEq tablet extended release 20 meq PO DAILY Jardiance 10 mg tablet 10 mg PO DAILY@0800 Referrals / Follow Up: Flaquita Fink MD [Primary Care Provider] - Disposition Disposition (needs filled in before D/C Order can be placed): Inpatient Rehab Unit/Facility Charges/Coding Visit Charges Inpatient E&M: 62507 Disch Hosp >30min
[2022-11-23 13:40] LABS: Bedside Glucose 145 mg/dL (74-106)
== END 2022-11-18 10:54 ==
LOC: ED 21:18 → MS3 22:29
PROVIDERS: Family Medicine; Admitting Provider Hospitalist; Emergency Provider Emergency Medicine; PCP Internal Medicine; Visit Provider Internal Medicine
DX: R53.81 Other malaise (principal); M86.8X8 Other osteomyelitis, other site; E11.69 Type 2 diabetes mellitus with other specified complication; E78.5 Hyperlipidemia, unspecified; R53.1 Weakness; G93.89 Other specified disorders of brain; Z79.84 Long term (current) use of oral hypoglycemic drugs; R26.2 Difficulty in walking, not elsewhere classified; G44.309 Post-traumatic headache, unspecified, not intractable; I10 Essential (primary) hypertension; Z91.81 History of falling; G47.33 Obstructive sleep apnea (adult) (pediatric); Z79.899 Other long term (current) drug therapy; Z79.890 Hormone replacement therapy; F09 Unspecified mental disorder due to known physiological condition; Z86.73 Personal history of transient ischemic attack (TIA), and cerebral infarction without residual deficits; G89.29 Other chronic pain; R33.9 Retention of urine, unspecified; K21.9 Gastro-esophageal reflux disease without esophagitis; D64.9 Anemia, unspecified; E66.9 Obesity, unspecified; E03.9 Hypothyroidism, unspecified; Z68.32 Body mass index [BMI] 32.0-32.9, adult
CPT/HCPCS: 99285; 36415; 70450; 80048; 80053; 81001; 82962; 84443; 85025; 87086; 96365; 96366; 96375; 97110; 97116; 97162; 97166; 97535; 97802; 99221; J7050; A4216; G0378; J2405

== ENCOUNTER 2022-11-18 11:15 | Inpatient (IN) | payer MEDICARE, SELFPAY ==
[2022-11-18 11:49] VITALS: BP 120/72; PULSE 64; RESP 18; TEMP 36.9; O2SAT 98; BMI 31.8
[2022-11-18 12:25] LABS: Bedside Glucose 98 mg/dL (74-106)
--- NOTE | 2022-11-18 13:00 | NURSING ---
Patient admitted into rehab again, was just here a few months ago. [employer] reoriented her to call dowling use and for staff to assist with all transfers and she verbalized understanding. Shortly after admission, bed alarm sounded and no call dowling had been used. Patient requested to go to the bathroom when [employer] intervened. Patient was still in the bed and reported she was not getting up unassisted but she was reaching for her helmet. Helmet to be worn at all times due to craniotomy with skull removal. Once patient was up in the recliner, she told staff she did not have to wear her helmet in the chair. This nurse told patient she would like her to wear helmet at all times until Dr. Padilla could make that decision and this nurse told patient her bed alarm had been sounding with no call dowling usage a few minutes prior and that it appeared as though she was getting up unassisted and I do not want her to fall. Patient told this nurse she was not getting up out of bed on her own. Patient agreed to use her helmet though at all times. Will monitor.
--- NOTE | 2022-11-18 14:00 | NURSING ---
This nurse and [employer] entered patient's room during a family visit and she was not wearing her helmet while she was sitting in the recliner. This nurse asked that she wear it and she said, I thought I did not have to. Patient reminded to wear helmet at all times.
[2022-11-18] MEDS: Acetaminophen 500 MG Tablet 1000 MG PO ×2 (14:06→20:53)
[2022-11-18] MEDS: Glucerna Shake 120 ML LIQUID PO ×2 (14:06→20:52)
[2022-11-18] MEDS: 0.9% Saline Lock 10 ML Syringe IV ×2 (14:45→20:54)
[2022-11-18] MEDS: metFORMIN HCl 500 MG Tablet 250 MG PO (16:36)
[2022-11-18] MEDS: Juven (unflavored) Packet 1 PACKET PO (16:38)
[2022-11-18 17:06] LABS: Bedside Glucose 107 mg/dL (74-106)
[2022-11-18] MEDS: traMADol 50 MG Tablet PO (18:10)
[2022-11-18 19:33] VITALS: BP 107/66; PULSE 65; RESP 16; TEMP 35.8; O2SAT 96
[2022-11-18 19:38] VITALS: O2SAT 98
[2022-11-18] MEDS: Carvedilol 6.25 MG Tablet PO (20:52)
[2022-11-18] MEDS: traZODone 50 MG Tablet PO (20:52)
[2022-11-18] MEDS: Pregabalin 75 MG Capsule PO (20:52)
[2022-11-18] MEDS: Nystatin Powder 15gm Bottle 1 APPLIC TOPICAL (20:53)
[2022-11-18] MEDS: buPROPion 75 MG Tablet PO (20:54)
[2022-11-18] MEDS: Senna/Docusate Sodium 1 Tablet 2 TABLET PO (20:55)
[2022-11-18 22:30] LABS: Bedside Glucose 154 mg/dL (74-106)
[2022-11-19 05:37] LABS: Hematocrit 29.9 % (37-47); Hemoglobin 9.7 g/dL (12.0-15.0); Mean Corp Hgb Conc 32.4 g/dL (32-36); Mean Corpuscular Hgb 29.5 pg (27.0-32.0); Mean Corpuscular Volume 90.9 fL (81-99); Mean Platelet Vol. 9.8 fl (6.2-12.0); Platelet Count 256 K/mm3 (150-450); RBC Distribution Width CV 14.1 % (11.6-14.6); RBC Distribution Width SD 47.2 fl (35.1-43.9); Red Blood Count 3.29 M/mm3 (4.2-5.4); White Blood Count 6.5 K/mm3 (4.4-11.0)
[2022-11-19] MEDS: Nystatin Powder 15gm Bottle 1 APPLIC TOPICAL ×2 (05:58→20:37)
[2022-11-19] MEDS: Acetaminophen 500 MG Tablet 1000 MG PO ×3 (05:58→20:35)
[2022-11-19] MEDS: 0.9% Saline Lock 10 ML Syringe IV ×2 (05:59→14:33)
[2022-11-19 06:30] LABS: ALB/GLOB Ratio 0.8 RATIO (0.9-2.4); AST(SGOT) 11 U/L (15-37); Alanine Aminotransfer ALT/SGPT 17 U/L (13-56); Albumin, Serum 3.1 g/dL (3.2-5.0); Alkaline Phosphatase 60 U/L (45-117); Anion Gap 4 (5-15); BUN 22 mg/dL (7-18); BUN/Creat Ratio 35.3 RATIO (10-20); Calcium,Total 9.4 mg/dL (8.5-10.1); Chloride 110 mmol/L (98-107); Creatinine, Serum 0.62 mg/dL (0.55-1.02); EST Glomerular Filtration Rate 101 mL/min (>60); Est Glom Filt Rate - Afr Amer 122 mL/min (>60); Estimated Creatinine Clearance 42.59 ml/min; Globulin 3.9 g/dL (2.2-4.2); Glucose 115 mg/dL (74-106); Magnesium 2.1 mg/dL (1.6-2.6); Phosphorus 3.9 mg/dL (2.5-4.9); Potassium 4.2 mmol/L (3.5-5.1); Sodium Level 141 mmol/L (136-145)
[2022-11-19 06:45] VITALS: O2SAT 91
[2022-11-19 06:54] LABS: Bedside Glucose 123 mg/dL (74-106)
[2022-11-19 08:07] VITALS: BP 105/70; PULSE 68; RESP 16; TEMP 36.5; TEMP 36.6; O2SAT 97
[2022-11-19] MEDS: Juven (unflavored) Packet 1 PACKET PO ×2 (08:28→16:52)
[2022-11-19] MEDS: Cholecalciferol (VIT D3) 25 MCG TABLET (1,000 UNITS) 50 MCG PO (08:28)
[2022-11-19] MEDS: Magnesium Chloride 64 MG Delay Rel.Tablet 128 MG PO (08:29)
[2022-11-19] MEDS: Potassium Chloride Oral Tablet 20 MEQ PO (08:29)
[2022-11-19] MEDS: Senna/Docusate Sodium 1 Tablet 2 TABLET PO ×2 (08:29→20:34)
[2022-11-19] MEDS: Carvedilol 6.25 MG Tablet PO ×2 (08:29→20:32)
[2022-11-19] MEDS: DULoxetine Hcl 20 MG Capsule PO (08:29)
[2022-11-19] MEDS: amLODIPine 10 MG Tablet PO (08:29)
[2022-11-19] MEDS: Empagliflozin 10 MG Tablet PO (08:29)
[2022-11-19] MEDS: buPROPion 75 MG Tablet PO ×2 (08:29→20:35)
[2022-11-19] MEDS: Aspirin 81 MG TAB.CHEW PO (08:29)
[2022-11-19] MEDS: metFORMIN HCl 500 MG Tablet 250 MG PO ×2 (08:29→16:51)
[2022-11-19] MEDS: Pantoprazole Sodium 40 MG Tablet PO (08:30)
[2022-11-19] MEDS: Glucerna Shake 120 ML LIQUID PO ×3 (08:38→16:54)
--- NOTE | 2022-11-19 09:22 | HP.PCM_ITS ---
HPI - General General Date of Admission: 11/18/22 Date of Service: 11/19/22 Chief Complaint: Debility due to recent craniotomy for Osteomyelitis of the skull HPI Narrative REBEKA AKERS, is a 67 YO F well known to me from an admission to [facility] acute rehab in July of this year following a craniectomy for non-traumatic hemorrhagic CVA. 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 the bx was done in 09/07/22. There are no results in the EMR for this bx. On the same day of the bx she had sudden numbness in the L hand that lasted about 45 minutes. She presented to the ED and had a CT of the brain that showed a NEW pneumocephalus. The ED doc discussed the case with neurosurgery at [facility] and they were not concerned about the Pneumocephalus. She was admitted to the hospitalist service and had an MRI and MRA of the head. The MRA showed only mild plaque. MRI showed right cerebral postsurgical subdural hematoma measuring 3.8 mm with no midline shift. There was diffuse right cerebral subarachnoid blood and a right temporal parietal intracerebral hemorrhage was noted. There was mild overlying edema. Overall the MRI appeared better than it did prior to the craniotomy. SOC was consulted and was unsure how the left hand numbness, which had completely resolved, was related to the MRI. They did not feel any acute interv ention was needed or changes in her medical regimen. She was discharged home. Following DC she was seen at [facility] again, timing is not clear, and was treated for osteomyelitis of the skull with a craniotomy and IV antibiotics. Following DC from [facility] she went home (rather than to rehab or an SNF) and again presented to the ED at [facility] on 11/15/22 after a fall at home. She was admitted to the hospitalist service. While in the hospital she was diagnosed with malnutrition by the the spreader. She was seen by PT/OT and a recommendation for acute rehab was made. She is very weak and having trouble ambulating. She lives with her who is not well and has cognitive dysfunction and he is unable to care for her. Peggy herself has memory difficulties, left side neglect and persistent weakness on the left side. She was transferred to the acute inpt rehab unit on 11/18/22 for 3 hours of therapy daily to restore function/independence at or near her level prior to the initial hemorrhagic str gabriel in July. While in rehab she had cellulitis/abscess/hematoma of the incision due to MSSA and was treated with Keflex. I have no records from the admission to [facility] for osteomyelitis. Afebrile VSS Maintaining appropriate oxygen saturation on RA Oral intake is good. She is eating 75 to 100% of her last 2 meals. The blood sugar record was reviewed. Blood sugars are under good control with no blood sugars greater than 160. No hypoglycemia. Discussed with nursing - she has a helmet to wear to protect the brain while she is up. She does not want to wear the helmet when she is sitting in the chair however, she is impulsive and has tried to get out of bed by herself. Memory is impaired and she has been known to pick at the incision on the last admission to rehab. I think is is safer for her to wear the helmet anytime that she is out of bed. I will discuss this with Peggy. Medication list reviewed. She is on Cefepime. Will need to find out how long she is to be on this medication. She has had 2 PVR's and they have been 202 and 0. She was not retaining when she left rehab in July. Lab drawn this morning was personally reviewed. The white blood cell count is within normal limits. Hemoglobin is 9.7, up from 9.1 on 11/18/2022. Hemoglobin was 10.6 when she left rehab in July. Platelets are within normal limits. Sodium is normal at 141 and the potassium is 4.2. BUN is 22 which is up from 18 on 11/18/2022. Creatinine is stable at 0.62 which is within her baseline. The estimated creatinine clearance is 42.59. Calcium, phosphorus and magnesium are all within normal limits. LFTs are unremarkable. Recent TSH was normal. Rebeka tells me that she had a needle aspiration of the mass in the left breast and it showed atypical cells and she is to go for a breast biopsy with Dr. Ramona Yuan on November 26. This will have to be rescheduled if she is still in rehab (which I suspect she will be) but, if she is in a SNF she may be able to make that appt if it is OP. She tells me that prior to the recent craniotomy she had been out mowing her grass with a push motor and walking without an AD. [facility] Medical History (Updated 11/20/22 @ 15:[address] Ramona Padilla, DO) Abdominal adhesions Anxiety Chronic back pain Diabetes mellitus, type 2 Heme positive stool Hemorrhagic stroke History of ectopic History of hemorrhagic cerebrovascular accident (CVA) without residual deficits Hyperlipidemia Hypertension Sleep apnea Stroke/cerebrovascular accident Home Medications rosuvastatin 20 mg tablet (Crestor) 10 mg PO QHS Cholestrol 10/03/15 [History Last Taken Unknown] amlodipine 10 mg tablet 10 mg PO DAILY BP #30 tabs 08/14/22 [Rx Last Taken Unknown] carvedilol 6.25 mg tablet (Coreg) 6.25 mg PO BID BP #60 tabs 08/14/22 [Rx Last Taken Unknown] tamsulosin 0.4 mg capsule 0.4 mg PO DAILY Urine retention #30 caps 08/14/22 [Rx Last Taken Unknown] aspirin 81 mg tablet 81 mg PO DAILY heart 11/15/22 [History Last Taken Unknown] cefepime 2 gram intravenous solution 2 g IV Q8H infection 11/15/22 [History Last Taken Unknown] cholecalciferol (vitamin D3) 50 mcg (2,000 unit) tablet 50 mcg PO DAILY vitamin 11/15/22 [History Last Taken Unknown] lisinopril 10 mg tablet 20 mg PO DAILY bp 11/15/22 [History Last Taken Unknown] tramadol 50 mg tablet 50 mg PO Q8H PRN PRN Pain Score 1-10 11/15/22 [History Last Taken Unknown] trazodone 50 mg tablet 50 mg PO QHS sleep 11/15/22 [History Last Taken Unknown] acetaminophen 500 mg tablet 1,000 mg PO Q8 pain 11/18/22 [History Last Taken Unknown] bupropion HCl 75 mg tablet 75 mg PO BID mood 11/18/22 [History Last Taken Unknown] duloxetine 20 mg capsule,delayed release 20 mg PO DAILY mood 11/18/22 [History Last Taken Unknown] empagliflozin 10 mg tablet (Jardiance) 10 mg PO DAILY@0800 dm 11/18/22 [History Last Taken Unknown] magnesium chloride 64 mg (magnesium chloride) tablet,delayed release (Mag 64) 128 mg PO DAILY vitamin 11/18/22 [History Last Taken Unknown] metformin 500 mg tablet 250 mg PO BIDCM dm 11/18/22 [History Last Taken Unknown] nutrition tx glu intol,lac-free,soy-fiber 0.06 gram-1.2 kcal/mL liquid (Glucerna 1.2 Noe) 120 ml PO 4X/DAY supp 11/18/22 [History Last Taken Unknown] nystatin 100,000 unit/gram topical powder (Nyamyc) 1 applic topical TID skin 11/18/22 [History Last Taken Unknown] pantoprazole 40 mg tablet,delayed release 40 mg PO DAILY gerd 11/18/22 [History Last Taken Unknown] potassium chloride 20 mEq tablet,extended release 20 meq PO DAILY supp 11/18/22 [History Last Taken Unknown] pregabalin 75 mg capsule 75 mg PO QHS pain 11/18/22 [History Last Taken Unknown] Allergy/AdvReac Type Severity Reaction Status Date / Time latex Allergy Rash Verified 11/15/22 17:53 naproxen Allergy Rash Verified 11/15/22 17:53 Ijwfpfm-WQJ-GjG Reductase Allergy MUSCLE Verified 11/15/22 17:53 Inhibitor ACHES [Daobniy-Wyj-Shy Reductase Inhibitor] Family History Other CVA (cerebral vascular accident) Diabetes Surgical History History of bunionectomy History of open heart surgery History of vein stripping Hx of craniotomy Previous back surgery Social History household members: spouse housing: other details: One-story house with 2 steps to enter the house Smoking Status: Never smoker alcohol intake: never substance use type: does not use ROS Constitutional Constitutional: Reports change in weight, fatigue, weight loss and other Details: She tells me that she is eating well but, continues to lose wt. she also tells me that she is very depressed and she had tears in her eyes several times while I was with her. ; Denies anorexia, chills, fever(s), night sweats or weakness Eyes Eyes: Reports other Details: Denies DC for the eyes. ; Denies blurry vision, change in vision, diplopia, eye pain or loss of vision ENT HEENT: Reports abnormal hearing and hearing loss; Denies dysphagia, headache(s), nasal congestion or sore throat Cardiovascular Cardiovascular: Denies chest pain, dyspnea on exertion, edema, lightheadedness, orthopnea, palpitations, paroxysmal nocturnal dyspnea or syncope Respiratory/Chest Respiratory/Chest: Reports shortness of breath with exertion; Denies cough, dyspnea, shortness of breath at rest or wheezing Gastrointestinal Gastrointestinal: Reports other Details: She had constipation but, she received a bunch of stool softeners and had a few large BM's. Denies ABD pain, bloating and gas. ; Denies abdominal pain, constipation, diarrhea, dyspepsia, hematemesis, hematochezia, nausea or vomiting Genitourinary Genitourinary: Reports dysuria and other Details: She is c/o vaginal itching. I suspect the dysuria is due to vaginitis due to the antibiotics. ; Denies hematuria, nocturia, urinary frequency, urinary hesitancy, urinary incontinence or urinary urgency Musculoskeletal Musculoskeletal: Denies back pain, joint pain, joint swelling or neck pain Integumentary Integumentary: Denies hirsutism or jaundice Neurologic Neurologic: Reports confusion, disequilibrium, focal weakness, headache(s) and other Details: She is weaker on the L side and she continues to have some negl ect on the left side. She also has some intention tremors of the LUE when reaching to pick something up that is a longer distance away from her. ; Denies dizziness, paresthesias, seizures or tremor(s) Psychiatric Psychiatric: Reports cognitive impairment, confusion, depression, difficulty concentrating and other Details: She is sleeping well at night and tells me that she has good intake but, I wonder if this is true because she has lost 10 lbs since she left rehab the end of July. During that time she had osteomyelitis of the skull and a craniuotomy. ; Denies anxiety, homicidal ideation or suicidal ideation Endocrine Endocrinology: Denies change in body appearance, polydipsia or polyuria Hematologic/Lymphatic Hematologic/Lymphatic: Denies easy bleeding, easy bruising or lymphadenopathy Allergic/Immunologic Allergic/Immunologic: Denies rhinitis, eczemia or asthma Vital Signs Vital Signs Vital Signs: 11/18/22 11:49 11/18/22 19:33 11/18/22 19:38 Temperature 98.4 F 96.5 F L Temperature Source Temporal Temporal Pulse Rate 64 65 Respiratory Rate 18 16 Respiratory Effort Respiratory Depth Respiratory Pattern Blood Pressure 120/72 107/66 Blood Pressure Mean 88 79 Blood Pressure Source Monitor Monitor Blood Pressure Position Semi-Fowlers Sitting Blood Pressure Location Left Arm Left Arm Pulse Ox 98 96 98 Oxygen Delivery Method Room Air Room Air Room Air 11/18/22 22:06 11/19/22 06:45 11/19/22 08:07 Temperature 97.9 F Temperature Source Temporal Pulse Rate 68 Respiratory Rate 16 Respiratory Effort Normal Non-Labored Respiratory Depth Normal Respiratory Pattern Normal Blood Pressure 105/70 Blood Pressure Mean 81 Blood Pressure Source Blood Pressure Position Blood Pressure Location Pulse Ox 91 97 Oxygen Delivery Method Room Air Room Air 11/19/22 08:07 Temperature 97.7 F L Temperature Source Temporal Pulse Rate 68 Respiratory Rate 16 Respiratory Effort Respiratory Depth Respiratory Pattern Blood Pressure 105/70 Blood Pressure Mean 81 Blood Pressure Source Monitor Blood Pressure Position Sitting Blood Pressure Location Left Arm Pulse Ox 97 Oxygen Delivery Method Room Air Weight Weight: 179 lb 9.6 oz Body Mass Index (BMI) 31.8 Physical Exam Const alert and oriented x3 Constitutional Narrative: Able to follow simple command. Pleasant, tearful several times during my time with her. Told me that she is very depressed. General Appearance: cooperative, well kempt and well developed HEENT HEENT Narrative: Dry mucous membranes. No evidence of thrush. Denies pain in her mouth or painful swallowing. Craniotomy incision is intact with no radha-incisional erythema and no discharge. The skull is asymmetric due to removal of a large bone flap from the right frontal temporal parietal area. She has a helmet to wear when she is out of bed. Eyes PERRL, EOMs intact bilaterally, conjunctivae normal and no scleral icterus Eyes Narrative: No mattering of the eyelashes and no discharge from the eyes. Neck supple, No nodes and no carotid bruits Chest Chest: symmetrical chest wall rise Resp normal respiratory effort, normal air movement and clear to auscultation bilaterally Resp Narrative: Excellent air exchange. Not tachypneic and no labored respirations. Cardio regular rate, regular rhythm, S1 normal heart sound, S2 normal heart sound, no rub and no gallops Cardio Narrative: She has a soft systolic MM at the second RICS with radiation to the LV outflow tract and the LLSB........possibly a flow MM since she did not have a MM the last time she was in rehab. GI GI Narrative: Mildly distended and tympanic, NT, soft, no guarding with palpation, mildly hyperactive BS's. Denies hematochezia. no CVA tenderness Extremity no calf tenderness and no pedal edema Skin General Skin Exam: no breakdown Rashes: no rashes Wound Narrative: Craniotomy incision is intact with no radha-incisional erythema, patient, no purulent discharge. There appears to be no significant swelling in the area where the bone flap was removed. Neuro oriented x3, CN's II-XII intact bilaterally and moves all extremities Psych cooperative, speech normal, activity/motor behavior normal, denies hallucinations, denies homicidal ideation and denies suicidal ideation Appearance: grossly normal and appropriate Attitude: calm Activity / Motor Behavior: appropriate eye contact Mood & Affect: depressed Results Lab / Micro Data Result Diagrams: 11/19/22 05:28 11/19/22 05:28 Labs: Laboratory Results - last 24 hr 11/18/22 12:06: POC Glucose 98 11/18/22 16:31: POC Glucose 107 H 11/18/22 22:12: POC Glucose 154 H 11/19/22 05:28: WBC 6.5, RBC 3.29 L, Hgb 9.7 L, Hct 29.9 L, MCV 90.9, MCH 29.5, MCHC 32.4, RDW Std Deviation 47.2 H, RDW Coeff of Carmelo 14.1, Plt Count 256, MPV 9.8 11/19/22 05:28: Sodium 141, Potassium 4.2, Chloride 110 H, Carbon Dioxide 27.0, Anion Gap 4 L, BUN 22 H, Creatinine 0.62, Estim Creat Clear Calc 42.59, Est GFR (MDRD) Af Amer 122, Est GFR (MDRD) Non-Af 101, BUN/Creatinine Ratio 35.3 H, Glucose 115 H, Calcium 9.4, Phosphorus 3.9, Magnesium 2.1, Total Bilirubin 0.40, AST 11 L, ALT 17, Alkaline Phosphatase 60, Total Protein 7.0, Albumin 3.1 L, Globulin 3.9, Albumin/Globulin Ratio 0.8 L 11/19/22 06:36: POC Glucose 123 H Assessment & Plan Assessment/Plan (1) Debility: (2) Osteomyelitis of skull: PLAN: Pt tells me that this is due to Staph.......we have no records from [facility] admission for craniotomy. (3) Status post craniotomy: (4) Chronic subdural hematoma: (5) Malnutrition: (6) Depression: (7) Cognitive dysfunction: PLAN: Due to strokes but, could also be related to untreated LUKAS and hearing loss. (8) Acute blood loss anemia: (9) Left hemiparesis: (10) Diabetes mellitus, type 2: (11) Hypertension: (12) Left breast mass: PLAN: Needle bx revealed atypical cells and she is scheduled for a breast biopy with Dr. Ramona Yuan on 11/26/22 and we will have to reschedule because she will still be in rehab at that time. (13) Obstructive sleep apnea: (14) Hearing loss: (15) Vaginal candidiasis: PLAN: Plan PLAN PT for gait stability OT for ADL's ST for evaluation Analgesics as needed Bowel protocol Fall precautions Assess for Anxiety/Depression GI prophylaxis with pantoprazole DVT prophylaxis with SCD's and MONIK hose until we find out from the neurosurgeon when we can start pharmacologic DVT prophylaxis. Follow up with PCP, neurosurgery following DC from [facility] AM lab including CMP, CBC, Mag and Phos all personally reviewed. Diflucan 100 mg for 3 days for vaginal candidiasis Will observe for a few days before considering changing the antidepressants. Dieter twice daily for wound healing. Find out what the stop date for cefepime will be. Obtain records from [facility] for her recent admission for osteomyelitis of the skull and craniectomy. Check a Hemoccult stool. Weekly CBC with diff, BMP, ESR and CRP while on Cefepime. Check LFT's in 2 weeks. Pt is allowed to be without the helmet while sitting in a chair but, she will have 2 alarms and if she tries to get out of the chair or the bed by herself she will have to wear the helmet in the chair. Charges/Coding Visit Charges Inpatient E&M: 34382 Init Hosp L3
[2022-11-19 10:38] VITALS: BP 101/60; BP 101/62; BP 95/53; PULSE 65; PULSE 72; PULSE 73
[2022-11-19 11:01] LABS: Erythrocyte Sedimentation Rate 35 mm/hr (0-30)
[2022-11-19 11:22] LABS: CRP < 2.90 mg/L (0.0-3.0)
[2022-11-19] MEDS: Lisinopril 20 MG Tablet PO (11:27)
[2022-11-19 11:47] LABS: Bedside Glucose 92 mg/dL (74-106)
[2022-11-19] MEDS: Tamsulosin HCl 0.4 MG Capsule PO (16:52)
[2022-11-19] MEDS: Fluconazole 100 MG Tablet PO (16:53)
[2022-11-19] MEDS: traMADol 50 MG Tablet PO (18:17)
[2022-11-19 19:23] VITALS: BP 98/58; PULSE 64; RESP 16; TEMP 36.8; O2SAT 97
[2022-11-19 19:28] LABS: Bedside Glucose 137 mg/dL (74-106)
[2022-11-19] MEDS: traZODone 50 MG Tablet PO (20:33)
[2022-11-19] MEDS: Pregabalin 75 MG Capsule PO (20:33)
[2022-11-19 22:06] LABS: Bedside Glucose 184 mg/dL (74-106)
[2022-11-20] MEDS: Acetaminophen 500 MG Tablet 1000 MG PO ×3 (05:53→20:36)
[2022-11-20] MEDS: 0.9% Saline Lock 10 ML Syringe IV ×2 (05:53→20:46)
[2022-11-20] MEDS: Nystatin Powder 15gm Bottle 1 APPLIC TOPICAL ×2 (06:12→20:43)
[2022-11-20 06:50] LABS: Bedside Glucose 116 mg/dL (74-106)
[2022-11-20 07:16] VITALS: BP 115/70; PULSE 79; RESP 18; TEMP 37.1; O2SAT 97
[2022-11-20] MEDS: Juven (unflavored) Packet 1 PACKET PO ×2 (07:45→16:38)
[2022-11-20] MEDS: metFORMIN HCl 500 MG Tablet 250 MG PO ×2 (07:45→16:37)
[2022-11-20] MEDS: Aspirin 81 MG TAB.CHEW PO (07:45)
[2022-11-20] MEDS: Pantoprazole Sodium 40 MG Tablet PO (07:45)
[2022-11-20] MEDS: Empagliflozin 10 MG Tablet PO (07:46)
[2022-11-20] MEDS: Senna/Docusate Sodium 1 Tablet 2 TABLET PO ×2 (07:46→20:37)
[2022-11-20] MEDS: Lisinopril 20 MG Tablet PO (07:46)
[2022-11-20] MEDS: amLODIPine 10 MG Tablet PO (07:46)
[2022-11-20] MEDS: Magnesium Chloride 64 MG Delay Rel.Tablet 128 MG PO (07:46)
[2022-11-20] MEDS: Cholecalciferol (VIT D3) 25 MCG TABLET (1,000 UNITS) 50 MCG PO (07:46)
[2022-11-20] MEDS: Potassium Chloride Oral Tablet 20 MEQ PO (07:46)
[2022-11-20] MEDS: Fluconazole 100 MG Tablet PO (07:46)
[2022-11-20] MEDS: buPROPion 75 MG Tablet PO ×2 (07:46→20:36)
[2022-11-20] MEDS: Carvedilol 6.25 MG Tablet PO ×2 (07:46→20:35)
[2022-11-20] MEDS: DULoxetine Hcl 20 MG Capsule PO (07:47)
[2022-11-20] MEDS: Glucerna Shake 120 ML LIQUID PO ×3 (07:47→16:38)
--- NOTE | 2022-11-20 10:24 | CASEMGMT ---
Patient has advanced directives put stated pt cannot explain to where to retrieve the documents to bring in copies. Nadia Reynolds, CAMILLE MCKEONW
[2022-11-20 12:11] LABS: Bedside Glucose 99 mg/dL (74-106)
--- NOTE | 2022-11-20 15:50 | REHABEVAL_ITS ---
Admission Information Primary Diagnosis:: Debility secondary to cranial osteomyelitis with recent craniectomy to remove infected bone. Status Changes from Prescreening?: No changes Identified (I have no records from [facility] so I am not aware of any changes. ) Actual Problem List:: Skin Intergrity, Pain, ALteration in Cmfrt, Cognitve Impr/Memory Loss, Depression, Mobility Impaired, Self Care Deficit, Ineffective Communication, Fluid Change-Dehydration and Alteration-Leisure Activ. Potential Problem List:: DVT, Bleeding, Infection, UTI, Aspiration, Falls, Skin Integrity and Depression Risk of Complications DVT: MONIK Hose and Sequential Compression Device Bleeding: Monitor Lab Values, Nursing to Teach Precautions for anti-coagulation therapy., Wound, if applicable, to be assessed every shift. and Stroke patients assessed for lethargy or change in status. Infection: Clinical Staff to Monitor for S/S of infection: and S/S of infection include fever, redness, warmth, etc. Urinary Tract Infection: Monitor for frequency, burning, discomfort, or incontinence. and Nursing will obtain urine sample for urinalysis and C&S when ordered. Aspiration: Clinical staff will monitor for coughing, drooling, congestion., Speech will evaluate swallowing and dsyphasia. and Nursing will monitor patient swallowing during meals. Falls: Patient will be evaluated for Fall Precautions and Patient will be placed on Fall Precautions as indicated per protocol. Skin Breakdown: Nursing will assess skin daily using assessment tool. and Nursing will place on Skin Breakdown Precautions as indicated. Pain: Clinical staff will assess patient's pain level per protocol., Medications will be given, if needed, and the pain level reassessed. and Other methods: Massage, distraction, decrease stimulus, etc. used PRN. Plan of Care Patient requires physician specializing in physical medicine and rehab oversight to provide close medical supervision of rehab issues including: Pain Management, Sleep Problems, Bowel and Bladder, Medical and co-morbidity Management, DVT prophylaxis, Rehabilitation Leadership and Coordination of treatment team Patient needs Physical Therapy: For a minimum of 1 hour and At least 5 out of 7 days Patient needs Physical Therapy to improve:: Mobility, Strengthening, Transfers, Stretching, ROM, Endurance, Stairs, Gait and Balance Patient needs Occupational Therapy: For a minimum of 1 hour and At least 5 out of 7 days Patient needs Occupational Therapy to improve ADL's incl.: Eating, Grooming, Bathing, Dressing, Toileting, Toilet transfers, Community Reintegration, Higher functioning activities, Household tasks, Adaptive Equipment, Splinting and Other activities as determined Patient requires speech therapy: For a minimum of 1 hour and At least 5 out of 7 days Patient requires speech therapy for: Swallowing, Cognition, Language Skills and Compensatory Strategies Patient requires 24/ Rehabilitation Nursing for: Pain Issues, Identifying and preventing risk factors, Monitoring and reporting current medical conditions, Assisting with ambulation, transfer, and all ADL's, Teaching patients about disease process and medications, Family teaching, Providing safe environment, Bowel and Bladder Issues, Skin integrity and Medication Management Patient needs Human Resource Advisor/ Case Management for: Discharge Planning, Arranging Home Equipment or Services and Family Interventions Patient needs Dietary and Nutrition Services for: Adequate Nutrition, Nutritional Supplements and Nutritional Education Goals Patient will remain: free from falls and or injury at time of discharge. Patient will perform bed mobility at: MOD I level of assist. Patient will complete transfers from bed to chair at: MOD I level of assist. (With least restrictive device) Patient will ambulate: - (500 feet on various surfaces without a device at mod I/standby assist.) Patient will complete upper body dressing at: MOD I level of assist. Patient will complete lower body dressing at: MOD I level of assist. (With adaptive equipment as needed.) Patient will complete toileting at: MOD I level of assist. Patient will perform bathing at: MOD I level of assist. Patient will complete grooming at: MOD I level of assist. Patient will complete home management skills at: MOD I level of assist. Patient will achieve: - (1 curb step and 2 steps without rails with the least restrictive device to allow access to her home entrance at standby assist) Patient will have pain level of: of 3 or less Patient's skin will: remain intact Patient will receive: adequate nutrition. Discharge Planning Estimated Length of stay (days): 21 Anticipated D/C Destination: Home
--- NOTE | 2022-11-20 15:57 | PCM.PROGNOTE ---
Subjective Subjective Afebrile VSS-BP was on the low side this morning at 95/53. Current blood pressure is 115/70. Heart rate is within normal limits. Maintaining appropriate oxygen saturation on RA-97%. Oral intake is good for food and fair for fluids. BUN/creatinine ratio was elevated at 35.3 yesterday. Blood sugar record was reviewed. Blood sugar at at bedtime last night was 184 and the fasting blood sugar today is 116. No hypoglycemia. We will continue to monitor before meals and at bedtime for a few days to get a trend. Discussed with nursing - no problems that need addressed. She is being compliant with summoning nursing anytime she wants to get up from the chair or out of bed. Reviewed the PT/OT/ST notes Medication list reviewed. Rebeka is complaining of a headache. FRANKEL gets worse when the helmet is on. Currently she is taking Tylenol and tramadol which are effective. She denies chest pain, shortness of breath, cough, hemoptysis, nausea/vomiting/abdominal pain, lightheadedness, dysuria and calf pain. Objective Data Objective Data Vital Signs: Vital Signs Temp Pulse Resp BP Pulse Ox O2 Del Method 98.8 F 79 18 115/70 97 Room Air 11/20/22 07:16 11/20/22 07:16 11/20/22 07:16 11/20/22 07:16 11/20/22 07:16 11/20/22 08:02 Oxygen Delivery Method Room Air Weight: 179 lb 9.593 oz Body Mass Index (BMI) 31.8 Intake & Output: Intake and Output for Last 24 Hours 11/18/22 11/19/22 11/20/22 23:59 23:59 23:59 Intake Total 840 / 840 1178.75 / 1178.75 490 / 490 Output Total 1100 / 1100 550 / 550 Balance -260 / -260 628.75 / 628.75 490 / 490 Lab / Micro Data 11/19/22 05:28 11/19/22 05:28 Labs: Laboratory Results - last 24 hr 11/19/22 16:54: POC Glucose 137 H 11/19/22 21:10: POC Glucose 184 H 11/20/22 06:08: POC Glucose 116 H 11/20/22 11:47: POC Glucose 99 Physical Exam Const alert, oriented x3 and no apparent distress General Appearance: cooperative HEENT Mouth: dry mucous membranes Eyes EOMs intact bilaterally Resp clear to auscultation bilaterally Resp Narrative: Excellent air exchange Cardio regular rate, regular rhythm and no gallops GI normal to inspection, nondistended, normoactive bowel sounds, soft to palpation and non-tender GI Narrative: No guarding with palpation Extremity no calf tenderness General Extremity: Negative for edema Skin General Skin Exam: no breakdown Rashes: no rashes Wound Narrative: there is a small area of dehiscence measuring approximately 1 cm in the mid portion of the incision following staple removal. Small amount of dried serous drainage. No odor, no radha-incisional erythema. Minimally painful with light palpation. Neuro CN's II-XII intact bilaterally Neuro Narrative: moving all extremities. Motor Exam: general weakness Psych affect normal Assessment & Plan Assessment/Plan (1) Debility: (2) Osteomyelitis of skull: (3) Status post craniotomy: (4) Chronic subdural hematoma: (5) Malnutrition: (6) Depression: (7) Cognitive dysfunction: (8) Acute blood loss anemia: (9) Left hemiparesis: (10) Diabetes mellitus, type 2: (11) Hypertension: (12) Left breast mass: (13) Obstructive sleep apnea: (14) Hearing loss: (15) Vaginal candidiasis: PLAN: Plan 1. Continue therapy 2. Hold amlodipine and continue Coreg and lisinopril at the current doses. Continue to monitor BP's 3. Encouraged her to increase her fluid intake. Charges/Coding Visit Charges Inpatient E&M: 03694 Subs Hosp L2
[2022-11-20] MEDS: Tamsulosin HCl 0.4 MG Capsule PO (16:38)
[2022-11-20 17:27] LABS: Bedside Glucose 110 mg/dL (74-106)
[2022-11-20 19:27] VITALS: BP 105/61; PULSE 78; RESP 17; TEMP 36.7; O2SAT 99
[2022-11-20] MEDS: traMADol 50 MG Tablet PO (20:35)
[2022-11-20] MEDS: Pregabalin 75 MG Capsule PO (20:35)
[2022-11-20] MEDS: traZODone 50 MG Tablet PO (20:36)
[2022-11-20 22:30] LABS: Bedside Glucose 157 mg/dL (74-106)
[2022-11-21] MEDS: Nystatin Powder 15gm Bottle 1 APPLIC TOPICAL ×2 (05:20→21:33)
[2022-11-21] MEDS: Acetaminophen 500 MG Tablet 1000 MG PO ×3 (05:20→21:30)
[2022-11-21] MEDS: 0.9% Saline Lock 10 ML Syringe IV ×2 (05:35→21:30)
[2022-11-21 07:15] LABS: Bedside Glucose 114 mg/dL (74-106)
[2022-11-21 08:11] VITALS: BP 105/62; PULSE 64; RESP 18; TEMP 37.1; O2SAT 96
[2022-11-21] MEDS: Juven (unflavored) Packet 1 PACKET PO ×2 (09:28→16:32)
[2022-11-21] MEDS: Magnesium Chloride 64 MG Delay Rel.Tablet 128 MG PO (09:28)
[2022-11-21] MEDS: Potassium Chloride Oral Tablet 20 MEQ PO (09:28)
[2022-11-21] MEDS: Cholecalciferol (VIT D3) 25 MCG TABLET (1,000 UNITS) 50 MCG PO (09:28)
[2022-11-21] MEDS: metFORMIN HCl 500 MG Tablet 250 MG PO ×2 (09:28→16:33)
[2022-11-21] MEDS: Carvedilol 6.25 MG Tablet PO ×2 (09:28→21:31)
[2022-11-21] MEDS: Senna/Docusate Sodium 1 Tablet 2 TABLET PO (09:28)
[2022-11-21] MEDS: DULoxetine Hcl 20 MG Capsule PO (09:29)
[2022-11-21] MEDS: Aspirin 81 MG TAB.CHEW PO (09:29)
[2022-11-21] MEDS: Pantoprazole Sodium 40 MG Tablet PO (09:29)
[2022-11-21] MEDS: Empagliflozin 10 MG Tablet PO (09:29)
[2022-11-21] MEDS: Fluconazole 100 MG Tablet PO (09:29)
[2022-11-21] MEDS: Lisinopril 20 MG Tablet PO (09:29)
[2022-11-21] MEDS: buPROPion 75 MG Tablet PO ×2 (09:29→21:31)
[2022-11-21] MEDS: Glucerna Shake 120 ML LIQUID PO ×2 (09:36→16:33)
[2022-11-21 12:16] LABS: Bedside Glucose 113 mg/dL (74-106)
[2022-11-21] MEDS: traMADol 50 MG Tablet PO ×2 (14:12→20:31)
[2022-11-21] MEDS: Tamsulosin HCl 0.4 MG Capsule PO (16:34)
[2022-11-21 17:38] LABS: Bedside Glucose 135 mg/dL (74-106)
[2022-11-21 20:52] VITALS: BP 122/68; PULSE 61; RESP 16; TEMP 36.4; O2SAT 95
[2022-11-21] MEDS: traZODone 50 MG Tablet PO (21:30)
[2022-11-21] MEDS: Pregabalin 75 MG Capsule PO (21:30)
[2022-11-21 22:33] LABS: Bedside Glucose 103 mg/dL (74-106)
[2022-11-22] MEDS: 0.9% Saline Lock 10 ML Syringe IV ×4 (06:14→21:45)
[2022-11-22] MEDS: Acetaminophen 500 MG Tablet 1000 MG PO ×3 (06:16→21:42)
[2022-11-22] MEDS: Nystatin Powder 15gm Bottle 1 APPLIC TOPICAL ×2 (06:17→21:46)
[2022-11-22 07:21] LABS: Bedside Glucose 126 mg/dL (74-106)
[2022-11-22] MEDS: Aspirin 81 MG TAB.CHEW PO (09:32)
[2022-11-22] MEDS: metFORMIN HCl 500 MG Tablet 250 MG PO ×2 (09:32→17:24)
[2022-11-22] MEDS: DULoxetine Hcl 20 MG Capsule PO (09:33)
[2022-11-22] MEDS: Empagliflozin 10 MG Tablet PO (09:33)
[2022-11-22] MEDS: Juven (unflavored) Packet 1 PACKET PO ×2 (09:33→17:24)
[2022-11-22] MEDS: Magnesium Chloride 64 MG Delay Rel.Tablet 128 MG PO (09:33)
[2022-11-22] MEDS: Potassium Chloride Oral Tablet 20 MEQ PO (09:33)
[2022-11-22] MEDS: Carvedilol 6.25 MG Tablet PO ×2 (09:33→21:48)
[2022-11-22] MEDS: Pantoprazole Sodium 40 MG Tablet PO (09:34)
[2022-11-22] MEDS: Lisinopril 20 MG Tablet PO (09:34)
[2022-11-22] MEDS: buPROPion 75 MG Tablet PO ×2 (09:34→21:42)
[2022-11-22] MEDS: Cholecalciferol (VIT D3) 25 MCG TABLET (1,000 UNITS) 50 MCG PO (09:34)
[2022-11-22] MEDS: Senna/Docusate Sodium 1 Tablet 2 TABLET PO ×2 (09:34→21:42)
[2022-11-22] MEDS: Glucerna Shake 120 ML LIQUID PO ×3 (09:39→17:26)
[2022-11-22 09:46] VITALS: BP 116/59; PULSE 65; RESP 16; TEMP 36.3; O2SAT 95
--- NOTE | 2022-11-22 10:55 | PN_ITS ---
Subjective Subjective Afebrile VSS Maintaining appropriate oxygen saturation on RA Oral intake is good. She ate 75 to 100% of her breakfast today. She only had 900 cc orally yesterday despite admonishment to increase fluid intake. Dehy dration likely contributes to FRANKEL. The blood sugar record was reviewed and blood sugars are well controlled with no hypoglycemia. Discussed with nursing - no problems that need addressed Reviewed the PT/OT/ST notes Medication list reviewed. Rebeka is complaining of a headache and it is only partially relieved with Tylenol. Tramadol works better for her. She has the FRANKEL even when the helmet is not on. she is also c/o tremors in the L arm. I have not observed this but, the PT/OT have. They seem to come and go and she has them with leaning of the FWW heavily. She denies lightheadedness, cough, shortness of breath, palpitations, nausea/vomiting/abdominal pain, dysuria and calf tenderness. Objective Data Objective Data Vital Signs: Vital Signs Temp Pulse Resp BP Pulse Ox O2 Del Method 97.3 F L 65 16 116/59 L 95 Room Air 11/22/22 09:46 11/22/22 09:46 11/22/22 09:46 11/22/22 09:46 11/22/22 09:46 11/22/22 09:46 Oxygen Delivery Method Room Air Weight: 179 lb 9.593 oz Body Mass Index (BMI) 31.8 Intake & Output: Intake and Output for Last 24 Hours 11/20/22 11/21/22 11/22/22 23:59 23:59 23:59 Intake Total 1130 / 1130 1200 / 1200 250 / 250 Output Total 950 / 950 1600 / 1600 700 / 700 Balance 180 / 180 -400 / -400 -450 / -450 Lab / Micro Data 12/04/22 05:17 12/04/22 05:17 Labs: Laboratory Results - last 24 hr 11/21/22 11:54: POC Glucose 113 H 11/21/22 16:34: POC Glucose 135 H 11/21/22 22:12: POC Glucose 103 11/22/22 06:46: POC Glucose 126 H Micro: Microbiology 11/20/22 20:50 Stool Stool Occult Blood (PREMA) - Final Physical Exam Const alert and no apparent distress General Appearance: cooperative HEENT Mouth: dry mucous membranes Resp clear to auscultation bilaterally Cardio regular rate, regular rhythm and no gallops GI normal to inspection, nondistended, normoactive bowel sounds, soft to palpation and non-tender GI Narrative: No guarding with palpation. Extremity no calf tenderness General Extremity: edema Skin General Skin Exam: no breakdown Rashes: no rashes Wound Narrative: the cranial incision is intact. There is a lot of scab present which is gradually being removed with light scrubbing. No DC from the wound and no swelling or erythema. Psych cooperative Appearance: appropriate Mood & Affect: depressed Assessment & Plan Assessment/Plan (1) Debility: (2) Osteomyelitis of skull: (3) Status post craniotomy: (4) Depression: (5) Cognitive dysfunction: (6) Acute blood loss anemia: (7) Left hemiparesis: (8) Diabetes mellitus, type 2: (9) Hypertension: (10) Left breast mass: (11) Obstructive sleep apnea: PLAN: Plan 1. Continue therapy. 2. Will need the breast mass biopsied post DC from rehab. Will find out from Peggy who is going to do the biopsy. 3. I suspect the tremor is due to weakness and fatigue of the LUE with pressure on the FWW....continue to monitor. Charges/Coding Visit Charges Inpatient E&M: 88085 Subs Hosp L2
[2022-11-22 12:13] LABS: Bedside Glucose 96 mg/dL (74-106)
--- NOTE | 2022-11-22 13:39 | CASEMGMT ---
Social Work IDT met with patient and for Team meeting. Discussed patient's progress in PT/OT/ST/SN. Educated to [facility] insurance with [employer] 11/28 and continued stay is not guaranteed with each review. Discussed concern with pt and assisting one another at home d/t having mild cognitive dysfunction. Pt is the primary brain between the two, and they have a system, per pt. and this worker had private discussion with pt and about concerns. Stressed the importance of safety at home. Both expressed understanding. Will ReTeam. Will continued to follow for DC planning and support. Nadia Reynolds, HIDE TRIMMER [employer]OP FORGER HELPER
[2022-11-22] MEDS: traMADol 50 MG Tablet PO (15:01)
[2022-11-22] MEDS: Tamsulosin HCl 0.4 MG Capsule PO (17:26)
[2022-11-22 17:40] LABS: Bedside Glucose 100 mg/dL (74-106)
[2022-11-22] MEDS: Pregabalin 75 MG Capsule PO (21:47)
[2022-11-22] MEDS: traZODone 50 MG Tablet PO (21:48)
[2022-11-22 22:00] VITALS: BP 109/54; PULSE 62; PULSE 68; RESP 16; RESP 17; TEMP 36.8; O2SAT 96
[2022-11-22 22:26] LABS: Bedside Glucose 145 mg/dL (74-106)
[2022-11-23] MEDS: Acetaminophen 500 MG Tablet 1000 MG PO ×3 (05:43→21:36)
[2022-11-23] MEDS: Nystatin Powder 15gm Bottle 1 APPLIC TOPICAL ×2 (05:46→21:37)
[2022-11-23] MEDS: 0.9% Saline Lock 10 ML Syringe IV ×3 (05:48→22:42)
[2022-11-23 06:00] VITALS: BMI 32.0
[2022-11-23 07:22] LABS: Bedside Glucose 126 mg/dL (74-106)
[2022-11-23 08:00] VITALS: BP 109/71; PULSE 63; RESP 16; TEMP 36.6; O2SAT 96
[2022-11-23] MEDS: metFORMIN HCl 500 MG Tablet 250 MG PO ×2 (08:23→17:46)
[2022-11-23] MEDS: Lisinopril 20 MG Tablet PO (08:24)
[2022-11-23] MEDS: buPROPion 75 MG Tablet PO ×2 (08:25→21:35)
[2022-11-23] MEDS: Magnesium Chloride 64 MG Delay Rel.Tablet 128 MG PO (08:25)
[2022-11-23] MEDS: Senna/Docusate Sodium 1 Tablet 2 TABLET PO ×2 (08:26→21:37)
[2022-11-23] MEDS: Cholecalciferol (VIT D3) 25 MCG TABLET (1,000 UNITS) 50 MCG PO (08:26)
[2022-11-23] MEDS: Aspirin 81 MG TAB.CHEW PO (08:27)
[2022-11-23] MEDS: Pantoprazole Sodium 40 MG Tablet PO (08:27)
[2022-11-23] MEDS: Carvedilol 6.25 MG Tablet PO ×2 (08:27→21:36)
[2022-11-23] MEDS: DULoxetine Hcl 20 MG Capsule PO (08:27)
[2022-11-23] MEDS: Potassium Chloride Oral Tablet 20 MEQ PO (08:28)
[2022-11-23] MEDS: Empagliflozin 10 MG Tablet PO (08:28)
[2022-11-23] MEDS: Juven (unflavored) Packet 1 PACKET PO ×2 (08:28→17:47)
[2022-11-23] MEDS: Glucerna Shake 120 ML LIQUID PO ×3 (08:29→17:46)
[2022-11-23 11:50] LABS: Bedside Glucose 140 mg/dL (74-106)
[2022-11-23] MEDS: traMADol 50 MG Tablet PO (14:02)
[2022-11-23 17:16] LABS: Bedside Glucose 123 mg/dL (74-106)
[2022-11-23] MEDS: Tamsulosin HCl 0.4 MG Capsule PO (17:46)
--- NOTE | 2022-11-23 20:25 | NURSING ---
Dr Campbell, Tele-Neurologist, called re: pt status and update of history d/t EEG. This nurse provided Dr Alvarez and answered questions.
[2022-11-23 20:29] VITALS: BP 120/69; PULSE 63; RESP 16; TEMP 36.6; O2SAT 97
[2022-11-23] MEDS: traZODone 50 MG Tablet PO (21:35)
[2022-11-23 22:00] VITALS: PULSE 66; RESP 15
[2022-11-23] MEDS: Pregabalin 75 MG Capsule PO (22:18)
[2022-11-23 22:45] LABS: Bedside Glucose 161 mg/dL (74-106)
[2022-11-24] MEDS: Acetaminophen 500 MG Tablet 1000 MG PO ×2 (06:43→13:47)
[2022-11-24] MEDS: 0.9% Saline Lock 10 ML Syringe IV ×4 (06:43→22:27)
[2022-11-24] MEDS: Nystatin Powder 15gm Bottle 1 APPLIC TOPICAL ×2 (06:44→21:50)
[2022-11-24 07:11] LABS: Bedside Glucose 155 mg/dL (74-106)
[2022-11-24 08:19] VITALS: BP 116/49; PULSE 73; RESP 17; TEMP 36.6; O2SAT 98
[2022-11-24] MEDS: metFORMIN HCl 500 MG Tablet 250 MG PO ×2 (09:18→17:41)
[2022-11-24] MEDS: Aspirin 81 MG TAB.CHEW PO (09:18)
[2022-11-24] MEDS: Glucerna Shake 120 ML LIQUID PO ×3 (09:18→17:41)
[2022-11-24] MEDS: Potassium Chloride Oral Tablet 20 MEQ PO (09:19)
[2022-11-24] MEDS: DULoxetine Hcl 20 MG Capsule PO (09:19)
[2022-11-24] MEDS: Magnesium Chloride 64 MG Delay Rel.Tablet 128 MG PO (09:19)
[2022-11-24] MEDS: Carvedilol 6.25 MG Tablet PO ×2 (09:19→22:05)
[2022-11-24] MEDS: Empagliflozin 10 MG Tablet PO (09:19)
[2022-11-24] MEDS: Juven (unflavored) Packet 1 PACKET PO ×2 (09:19→17:42)
[2022-11-24] MEDS: Cholecalciferol (VIT D3) 25 MCG TABLET (1,000 UNITS) 50 MCG PO (09:20)
[2022-11-24] MEDS: Pantoprazole Sodium 40 MG Tablet PO (09:20)
[2022-11-24] MEDS: Senna/Docusate Sodium 1 Tablet 2 TABLET PO ×2 (09:20→22:06)
[2022-11-24] MEDS: buPROPion 75 MG Tablet PO (09:20)
[2022-11-24] MEDS: Lisinopril 20 MG Tablet PO (09:20)
[2022-11-24 11:38] LABS: Bedside Glucose 96 mg/dL (74-106)
--- NOTE | 2022-11-24 13:26 | PCM.PROGNOTE ---
Subjective Subjective Afebrile VSS Maintaining appropriate oxygen saturation on RA Oral intake is good. She ate 75 to 100% of most of her meals. Fluid intake is not as good and she has to be reminded to drink. Blood sugar record was reviewed and blood sugars are well controlled with no hypoglycemia. Discussed with nursing - no problems that need addressed Reviewed the PT/OT/ST notes Medication list reviewed. Peggy is depressed and she is very tearful today. She is devastated by the fact that she is now being taught simple things that she taught her children and she has trouble getting it. She is eating pretty well and she tells me that she is sleeping well. She continued to have twitching on the Left side. No LOC and no grand mal seizures. Continues to complain of headaches. She denies shaking chills, night sweats, chest pain, shortness of breath, palpitations, nausea/vomiting/abdominal pain, dysuria, calf tenderness and lightheadedness. She admits to continuing to feel depressed. Objective Data Objective Data Vital Signs: Vital Signs Temp Pulse Resp BP Pulse Ox O2 Del Method 97.9 F 73 17 116/49 L 98 Room Air 11/24/22 08:19 11/24/22 08:19 11/24/22 08:19 11/24/22 08:19 11/24/22 08:19 11/24/22 08:19 Oxygen Delivery Method Room Air Weight: 180 lb 8.937 oz Body Mass Index (BMI) 32.0 Intake & Output: Intake and Output for Last 24 Hours 11/22/22 11/23/22 11/24/22 23:59 23:59 23:59 Intake Total 1410 / 1660 2090 / 2490 1230 / 1230 Output Total 700 / 700 750 / 1500 1350 / 1350 Balance 710 / 960 1340 / 990 -120 / -120 Lab / Micro Data 11/19/22 05:28 11/19/22 05:28 Labs: Laboratory Results - last 24 hr 11/23/22 16:58: POC Glucose 123 H 11/23/22 22:24: POC Glucose 161 H 11/24/22 06:46: POC Glucose 155 H 11/24/22 11:18: POC Glucose 96 Micro: Microbiology 11/20/22 20:50 Stool Stool Occult Blood (PREMA) - Final Physical Exam Const alert Constitutional Narrative: Very tearful today. General Appearance: cooperative Resp normal respiratory effort, no use of accessory muscles and clear to auscultation bilaterally Effort and Inspection: Negative for tachypneic or labored Cardio regular rate, regular rhythm and no gallops GI normal to inspection, nondistended, normoactive bowel sounds, non-tender and non-distended GI Narrative: no guarding with palpation Extremity Negative for no calf tenderness General Extremity: Negative for edema Skin Skin Narrative: The cranial incision is intact with a few scabbed areas. There is no discharge from the incision and no bleeding. No radha-incisional erythema or swelling. The area surrounding the incision is not warm to touch. She denied pain with palpation around the incision. 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 Continue therapy 2. Discontinue Wellbutrin and tramadol due to lowering of the seizure threshold with these medications. Start [place] 5/325 every 4 hours as needed for pain 1-10. 3. Start Keppra 500 mg BID 4. Increase the Cymbalta to 40 mg daily 5. Increase Trazodone to 100 mg at HS for insomnia and depression. 6. She is on cefepime which does lower seizure threshold however is necessary to treat the osteomyelitis of the skull. Will institute seizure precautions. 7. Would benefit from outpatient counseling for depression. 8. Peggy's friend Vincent and Vincent's dtr help Dory out a lot at home. I would like to talk with Vincent prior to Peggy's DC to discuss warning signs that things are declining with Dory. Consider APS at DC. Charges/Coding Visit Charges Inpatient E&M: 92561 Subs Hosp L2
[2022-11-24 16:48] LABS: Bedside Glucose 130 mg/dL (74-106)
[2022-11-24] MEDS: Tamsulosin HCl 0.4 MG Capsule PO (17:41)
[2022-11-24 19:31] VITALS: BP 131/76; PULSE 66; RESP 18; TEMP 36.8; O2SAT 98
[2022-11-24 22:00] VITALS: PULSE 66; RESP 16
[2022-11-24] MEDS: Pregabalin 75 MG Capsule PO (22:07)
[2022-11-24] MEDS: levETIRAcetam 500 MG Tablet PO (22:07)
[2022-11-24] MEDS: HYDROcodone Bitartrate/Apap 5/325 Tablet PO (22:07)
[2022-11-24] MEDS: traZODone 100 MG Tablet PO (22:09)
[2022-11-25] MEDS: 0.9% Saline Lock 10 ML Syringe IV ×3 (05:47→21:48)
[2022-11-25] MEDS: Nystatin Powder 15gm Bottle 1 APPLIC TOPICAL ×2 (05:48→21:47)
--- NOTE | 2022-11-25 09:00 | NURSING ---
Patient requested to sleep in this morning so breakfast held and blood sugar and meds given when she woke up at 9am.
[2022-11-25] MEDS: Aspirin 81 MG TAB.CHEW PO (09:37)
[2022-11-25] MEDS: levETIRAcetam 500 MG Tablet PO ×2 (09:37→21:43)
[2022-11-25] MEDS: Cholecalciferol (VIT D3) 25 MCG TABLET (1,000 UNITS) 50 MCG PO (09:37)
[2022-11-25] MEDS: Empagliflozin 10 MG Tablet PO (09:38)
[2022-11-25] MEDS: Juven (unflavored) Packet 1 PACKET PO ×2 (09:38→17:05)
[2022-11-25] MEDS: DULoxetine Hcl 20 MG Capsule 40 MG PO (09:38)
[2022-11-25] MEDS: metFORMIN HCl 500 MG Tablet 250 MG PO ×2 (09:40→17:06)
[2022-11-25] MEDS: Potassium Chloride Oral Tablet 20 MEQ PO (09:41)
[2022-11-25 09:42] VITALS: BP 120/69; PULSE 66; RESP 16; TEMP 36.6; O2SAT 98
[2022-11-25] MEDS: Pantoprazole Sodium 40 MG Tablet PO (09:42)
[2022-11-25] MEDS: Carvedilol 6.25 MG Tablet PO ×2 (09:42→21:43)
[2022-11-25] MEDS: Magnesium Chloride 64 MG Delay Rel.Tablet 128 MG PO (09:43)
[2022-11-25] MEDS: Lisinopril 20 MG Tablet PO (09:43)
[2022-11-25 09:50] LABS: Bedside Glucose 131 mg/dL (74-106)
[2022-11-25 16:46] LABS: Bedside Glucose 137 mg/dL (74-106)
[2022-11-25] MEDS: Tamsulosin HCl 0.4 MG Capsule PO (17:06)
[2022-11-25 21:36] VITALS: BP 113/67; PULSE 64; RESP 14; TEMP 36.9; O2SAT 96
[2022-11-25] MEDS: Senna/Docusate Sodium 1 Tablet 2 TABLET PO (21:42)
[2022-11-25] MEDS: traZODone 100 MG Tablet PO (21:46)
[2022-11-25] MEDS: Pregabalin 75 MG Capsule PO (21:46)
[2022-11-26] MEDS: Nystatin Powder 15gm Bottle 1 APPLIC TOPICAL ×2 (06:43→22:21)
[2022-11-26 07:06] LABS: Bedside Glucose 121 mg/dL (74-106)
[2022-11-26 07:23] VITALS: BP 106/62; PULSE 69; RESP 15; TEMP 36.7; O2SAT 98
[2022-11-26] MEDS: Juven (unflavored) Packet 1 PACKET PO ×2 (07:36→16:25)
[2022-11-26] MEDS: DULoxetine Hcl 20 MG Capsule 40 MG PO (07:38)
[2022-11-26] MEDS: Magnesium Chloride 64 MG Delay Rel.Tablet 128 MG PO (07:39)
[2022-11-26] MEDS: metFORMIN HCl 500 MG Tablet 250 MG PO ×2 (07:40→16:24)
[2022-11-26] MEDS: Lisinopril 20 MG Tablet PO (07:42)
[2022-11-26] MEDS: levETIRAcetam 500 MG Tablet PO ×2 (07:44→22:21)
[2022-11-26] MEDS: Empagliflozin 10 MG Tablet PO (07:44)
[2022-11-26] MEDS: Carvedilol 6.25 MG Tablet PO ×2 (07:44→22:20)
[2022-11-26] MEDS: Aspirin 81 MG TAB.CHEW PO (07:44)
[2022-11-26] MEDS: Pantoprazole Sodium 40 MG Tablet PO (07:44)
[2022-11-26] MEDS: Potassium Chloride Oral Tablet 20 MEQ PO (07:44)
[2022-11-26] MEDS: Cholecalciferol (VIT D3) 25 MCG TABLET (1,000 UNITS) 50 MCG PO (07:45)
--- NOTE | 2022-11-26 10:28 | PN_ITS ---
Subjective Subjective Afebrile VSS Maintaining appropriate oxygen saturation on RA Oral intake is good. Good fluid intake also. Discussed with nursing - no problems that need addressed Reviewed the PT/OT/ST notes Medication list reviewed. She was started on Keppra 500 mg p.o. twice daily for abnormal EEG with partial motor seizures on physical exam on Saturday. Fany tells me that she is still having some shaking of the LUE but, much less since the Keppra was started. She says it is making her feel groggy at times but, she is able to do all her therapy and she tells me she feels her though processes are more clear. She is c/o constipation today. Still having some severe FRANKEL's.......robin after ST? I had hoped that with discontinuation of Wellbutrin the FRANKEL's would improve. It may b the cefepime causing the FRANKEL's and the seizures. Objective Data Objective Data Vital Signs: Vital Signs Temp Pulse Resp BP Pulse Ox O2 Del Method 98.0 F 69 15 106/62 98 Room Air 11/26/22 07:23 11/26/22 07:23 11/26/22 07:23 11/26/22 07:23 11/26/22 07:23 11/26/22 07:23 Oxygen Delivery Method Room Air Weight: 180 lb 8.937 oz Body Mass Index (BMI) 32.0 Intake & Output: Intake and Output for Last 24 Hours 11/24/22 11/25/22 11/26/22 23:59 23:59 23:59 Intake Total 2230 / 2230 1800 / 2040 1030 / 1030 Output Total 2500 / 2500 1300 / 1700 900 / 900 Balance -270 / -270 500 / 340 130 / 130 Lab / Micro Data 11/27/22 05:45 11/27/22 05:45 Labs: Laboratory Results - last 24 hr 11/25/22 16:27: POC Glucose 137 H 11/26/22 05:56: POC Glucose 121 H Micro: Microbiology 11/20/22 20:50 Stool Stool Occult Blood (PREMA) - Final Physical Exam Const alert, oriented x3 and no apparent distress Constitutional Narrative: Better mood today. Not tearful and more upbeat. General Appearance: cooperative HEENT moist oral mucous membranes Eyes PERRL and EOMs intact bilaterally Resp normal respiratory effort, normal air movement and clear to auscultation bilaterally Cardio regular rate, regular rhythm and no gallops GI normal to inspection, nondistended, normoactive bowel sounds, soft to palpation and non-tender Extremity no calf tenderness General Extremity: Negative for edema Skin General Skin Exam: no breakdown Wound Narrative: The incision is intact with no purulent DC, no swelling and no radha-incisional erythema. Psych cooperative Psych Narrative: Better mood today. We went over the list of psychotherapists the SW gave her and I circled a few she would do well with. 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 or to Cefepime? Tramadol and Wellbutrin have been discontinued. Cefepime can lower seizure threshold. (17) Constipation: PLAN: Plan 1. Continue therapy 2. Weekly lab tomorrow - CBC with diff,CMP, mag and phos, ESR and CRP. 3. Cefepime can cause seizures and also FRANKEL's.........Will look at the cultures when available to see if there is another antibiotic we can use. 4. Start Miralax in addition to Senna 5. Start Lactobacillus. I reviewed all the paperwork from the previous hospital again and the bacteria being treated is MSSA. She was on Vanco and Cefepime and then at DC from the prior hospital the Vanco was DC'd. The ID doc felt she would get better [employer] coverage with the Cefepime. She is going to have a fabricated bone flap inse rted after she finishes 6 weeks of IV antibiotics. I am thinking the Cefepime is causing some significant SE's with seizures and severe FRANKEL's and will consult ID after the holiday to see if the antibiotic can be changed. Charges/Coding Visit Charges Inpatient E&M: 56735 Subs Hosp L2
[2022-11-26] MEDS: Polyethylene Glycol 3350 17 GM PACKET PO (12:24)
[2022-11-26] MEDS: HYDROcodone Bitartrate/Apap 5/325 Tablet PO (13:41)
[2022-11-26] MEDS: Tamsulosin HCl 0.4 MG Capsule PO (16:25)
[2022-11-26 17:03] LABS: Bedside Glucose 150 mg/dL (74-106)
[2022-11-26 22:00] VITALS: BP 105/59; PULSE 66; RESP 16; TEMP 36.5; O2SAT 97
[2022-11-26] MEDS: Senna/Docusate Sodium 1 Tablet 2 TABLET PO (22:21)
[2022-11-26] MEDS: traZODone 100 MG Tablet PO (22:21)
[2022-11-26] MEDS: Pregabalin 75 MG Capsule PO (22:21)
[2022-11-26] MEDS: 0.9% Saline Lock 10 ML Syringe IV (22:22)
[2022-11-27 06:11] LABS: Absolute Lymphocyte Count 2.03 X10^3/uL (0.83-4.51); Absolute Neutrophil Count 1.4 X10^3/uL (2.0-7.7); Basophil# 0.05 X10^3/uL; Basophil% 1.1 % (0-1); Eosinophil# 0.34 X10^3/uL; Eosinophils% 7.8 % (0-5); Hematocrit 31.2 % (37-47); Hemoglobin 10.2 g/dL (12.0-15.0); Lymphocyte # 2.03 X10^3/ul (0.83-4.51); Lymphocyte % 46.6 % (19-41); Mean Corp Hgb Conc 32.7 g/dL (32-36); Mean Corpuscular Hgb 29.6 pg (27.0-32.0); Mean Corpuscular Volume 90.4 fL (81-99); Mean Platelet Vol. 10.2 fl (6.2-12.0); Monocyte# 0.55 X10^3/uL; Monocyte% 12.6 % (0-10); NRBC Flagged by Analyzer 0 % (0-5); Neutrophil # 1.39 X10^3/uL (2.7-7.7); Neutrophil % 31.9 % (47-70); Platelet Count 206 K/mm3 (150-450); RBC Distribution Width SD 46.5 fl (35.1-43.9); Red Blood Count 3.45 M/mm3 (4.2-5.4); White Blood Count 4.4 K/mm3 (4.4-11.0)
[2022-11-27] MEDS: 0.9% Saline Lock 10 ML Syringe IV ×2 (06:20→21:50)
[2022-11-27] MEDS: Nystatin Powder 15gm Bottle 1 APPLIC TOPICAL (06:24)
[2022-11-27 06:44] LABS: Erythrocyte Sedimentation Rate 22 mm/hr (0-30)
[2022-11-27 06:44] LABS: Bedside Glucose 114 mg/dL (74-106)
[2022-11-27 06:50] LABS: ALB/GLOB Ratio 0.8 RATIO (0.9-2.4); AST(SGOT) 16 U/L (15-37); Alanine Aminotransfer ALT/SGPT 23 U/L (13-56); Albumin, Serum 3.1 g/dL (3.2-5.0); Alkaline Phosphatase 56 U/L (45-117); Anion Gap 1 (5-15); BUN 20 mg/dL (7-18); BUN/Creat Ratio 32.8 RATIO (10-20); Calcium,Total 9.5 mg/dL (8.5-10.1); Chloride 110 mmol/L (98-107); Creatinine, Serum 0.61 mg/dL (0.55-1.02); EST Glomerular Filtration Rate 104 mL/min (>60); Est Glom Filt Rate - Afr Amer 125 mL/min (>60); Estimated Creatinine Clearance 42.59 ml/min; Globulin 3.9 g/dL (2.2-4.2); Glucose 111 mg/dL (74-106); Magnesium 2.2 mg/dL (1.6-2.6); Phosphorus 3.7 mg/dL (2.5-4.9); Potassium 4.2 mmol/L (3.5-5.1); Sodium Level 140 mmol/L (136-145)
[2022-11-27 06:55] LABS: CRP < 2.90 mg/L (0.0-3.0)
[2022-11-27 07:48] VITALS: BP 112/70; PULSE 60; RESP 16; TEMP 37.2; O2SAT 96
[2022-11-27] MEDS: Cholecalciferol (VIT D3) 25 MCG TABLET (1,000 UNITS) 50 MCG PO (08:27)
[2022-11-27] MEDS: Senna/Docusate Sodium 1 Tablet 2 TABLET PO (08:27)
[2022-11-27] MEDS: Polyethylene Glycol 3350 17 GM PACKET PO (08:28)
[2022-11-27] MEDS: Magnesium Chloride 64 MG Delay Rel.Tablet 128 MG PO (08:28)
[2022-11-27] MEDS: Pantoprazole Sodium 40 MG Tablet PO (08:28)
[2022-11-27] MEDS: DULoxetine Hcl 20 MG Capsule 40 MG PO (08:28)
[2022-11-27] MEDS: metFORMIN HCl 500 MG Tablet 250 MG PO ×2 (08:28→17:28)
[2022-11-27] MEDS: Potassium Chloride Oral Tablet 20 MEQ PO (08:29)
[2022-11-27] MEDS: Empagliflozin 10 MG Tablet PO (08:29)
[2022-11-27] MEDS: Aspirin 81 MG TAB.CHEW PO (08:29)
[2022-11-27] MEDS: Juven (unflavored) Packet 1 PACKET PO ×2 (08:29→17:28)
[2022-11-27] MEDS: Carvedilol 6.25 MG Tablet PO ×2 (08:29→21:43)
[2022-11-27] MEDS: levETIRAcetam 500 MG Tablet PO ×2 (08:30→21:45)
[2022-11-27] MEDS: Lisinopril 20 MG Tablet PO (08:30)
--- NOTE | 2022-11-27 11:13 | PN_ITS ---
Subjective Subjective Afebrile VSS Maintaining appropriate oxygen saturation on RA Oral intake is good Discussed with nursing - no problems that need addressed Reviewed the PT/OT/ST notes Medication list reviewed. All lab drawn this AM was personally reviewed. White blood cell count is normal at 4.4, hemoglobin is improving and is 10.2 today. Platelets are within normal limits and the ESR is 22, down from 35 last week. Sodium is 140 and the potassium is 4.2. The BUN is 20 and the creatinine is stable at 0.61. CRP is less than 2.9. Peggy continues to c/o severe FRANKEL's and despite the Keppra she is continuing to have partial motor seizures of the L arm>leg. This impairs her ability to hold on to the WW to do therapy. She denies shortness of breath, chest pain, palpitations, nausea/vomiting/abdominal pain, dysuria and calf tenderness. She also denies lightheadedness. Objective Data Objective Data Vital Signs: Vital Signs Temp Pulse Resp BP Pulse Ox O2 Del Method 99 F 60 16 112/70 96 Room Air 11/27/22 07:48 11/27/22 07:48 11/27/22 07:48 11/27/22 07:48 11/27/22 07:48 11/27/22 07:48 Oxygen Delivery Method Room Air Weight: 180 lb 8.937 oz Body Mass Index (BMI) 32.0 Intake & Output: Intake and Output for Last 24 Hours 11/25/22 11/26/22 11/27/22 23:59 23:59 23:59 Intake Total 1800 / 2040 2710 / 2710 580 / 580 Output Total 1300 / 1700 1300 / 1300 Balance 500 / 340 1410 / 1410 580 / 580 Lab / Micro Data 11/27/22 05:45 11/27/22 05:45 Labs: Laboratory Results - last 24 hr 11/26/22 16:29: POC Glucose 150 H 11/27/22 05:45: WBC 4.4, RBC 3.45 L, Hgb 10.2 L, Hct 31.2 L, MCV 90.4, MCH 29.6, MCHC 32.7, RDW Std Deviation 46.5 H, RDW Coeff of Carmelo 14.0, Plt Count 206, MPV 10.2, Immature Gran % (Auto) 0.000, Neut % (Auto) 31.9 L, Lymph % (Auto) 46.6 H, Parker % (Auto) 12.6 H, Eos % (Auto) 7.8 H, Baso % (Auto) 1.1 H, Absolute Neuts (auto) 1.4 L, Absolute Lymphs (auto) 2.03, Nucleated RBC % 0, ESR 22, Sodium 140, Potassium 4.2, Chloride 110 H, Carbon Dioxide 29.0, Anion Gap 1 L, BUN 20 H , Creatinine 0.61, Estim Creat Clear Calc 42.59, Est GFR (MDRD) Af Amer 125, Est GFR (MDRD) Non-Af 104, BUN/Creatinine Ratio 32.8 H, Glucose 111 H, Calcium 9.5, Phosphorus 3.7, Magnesium 2.2, Total Bilirubin 0.40, AST 16, ALT 23, Alkaline Phosphatase 56, C-React Prot Ext Range < 2.90, Total Protein 7.0, Albumin 3.1 L, Globulin 3.9, Albumin/Globulin Ratio 0.8 L 11/27/22 06:18: POC Glucose 114 H Micro: Microbiology 11/20/22 20:50 Stool Stool Occult Blood (PREMA) - Final Physical Exam Const alert and oriented x3 Constitutional Narrative: She appears to be in pain and she tells me that she is having a bad FRANKEL........they are pretty constant. The pain medication only takes the edge off. She also tells me that she continues to having uncontrollable shaking of the Left arm. The Keppra is making her feel tired. She has had no generalized seizures. General Appearance: cooperative HEENT Mouth: dry mucous membranes Eyes PERRL and EOMs intact bilaterally Neck supple Resp normal respiratory effort, normal air movement and clear to auscultation bilaterally Effort and Inspection: Negative for tachypneic or labored Cardio regular rate, regular rhythm and no gallops GI normal to inspection, nondistended, normoactive bowel sounds, soft to palpation and non-tender Extremity no calf tenderness Extremity Narrative: she has some ankle edema but, this is controlled with the MONIK hose. Skin Rashes: no rashes Wound Narrative: The cranial incision is intact. Most of the scab has fallen off. There is no d ischarge. No swelling and no erythema. There is no tenderness when I palpate the area around the incision. Psych Psych Narrative: Still feeling depressed but, she is now sleeping well and has a good appetite. Wellbutrin was discontinued due to it SE of lowering seizure threshold. The Cymbalta dose was increased to 40 mg daily. She is also taking trazodone 100 mg at at bedtime. Not tearful when I am talking with her today. Assessment & Plan Assessment/Plan (1) Debility: (2) Osteomyelitis of skull: (3) Status post craniotomy: (4) Depression: (5) Cognitive dysfunction: (6) Acute blood loss anemia: (7) Left hemiparesis: (8) Diabetes mellitus, type 2: (9) Hypertension: (10) Left breast mass: (11) Obstructive sleep apnea: (12) Partial motor seizures: PLAN: Due to previous stroke? or to Cefepime? Tramadol and Wellbutrin have been discontinued. Cefepime can lower seizure threshold. PLAN: Plan 1. Continue therapy 2. Consult infectious disease tomorrow to see if the antibiotic can be changed to something other than cefepime. I suspect the cefepime is causing the severe headaches and contributing to partial motor seizures. 3. Continue to urged increased fluid intake. 4. Increase Keppra to 750 twice daily I reviewed all the paperwork from the previous hospital again and the bacteria being treated is MSSA. She was on Vanco and Cefepime and [facility]. 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 She is going to have a fabricated bone flap inserted after she finishes 6 weeks of IV antibiotics. Charges/Coding Visit Charges Inpatient E&M: 42617 Subs Hosp L2
[2022-11-27] MEDS: HYDROcodone Bitartrate/Apap 5/325 Tablet PO ×2 (13:41→21:42)
[2022-11-27 16:32] LABS: Bedside Glucose 136 mg/dL (74-106)
[2022-11-27] MEDS: Tamsulosin HCl 0.4 MG Capsule PO (17:28)
[2022-11-27 19:58] VITALS: BP 111/61; PULSE 64; RESP 15; TEMP 36.9; O2SAT 94
[2022-11-27] MEDS: Pregabalin 75 MG Capsule PO (21:42)
[2022-11-27] MEDS: traZODone 100 MG Tablet PO (21:43)
[2022-11-28] MEDS: 0.9% Saline Lock 10 ML Syringe IV ×3 (06:03→21:56)
[2022-11-28 06:44] LABS: Bedside Glucose 117 mg/dL (74-106)
[2022-11-28 08:02] VITALS: BP 115/71; PULSE 67; RESP 16; TEMP 37.1; O2SAT 96
[2022-11-28] MEDS: Carvedilol 6.25 MG Tablet PO ×2 (08:54→21:45)
[2022-11-28] MEDS: Senna/Docusate Sodium 1 Tablet 2 TABLET PO ×2 (08:54→21:45)
[2022-11-28] MEDS: Magnesium Chloride 64 MG Delay Rel.Tablet 128 MG PO (08:54)
[2022-11-28] MEDS: Potassium Chloride Oral Tablet 20 MEQ PO (08:54)
[2022-11-28] MEDS: Pantoprazole Sodium 40 MG Tablet PO (08:54)
[2022-11-28] MEDS: Lisinopril 20 MG Tablet PO (08:54)
[2022-11-28] MEDS: levETIRAcetam 500 MG Tablet PO (08:54)
[2022-11-28] MEDS: Cholecalciferol (VIT D3) 25 MCG TABLET (1,000 UNITS) 50 MCG PO (08:54)
[2022-11-28] MEDS: metFORMIN HCl 500 MG Tablet 250 MG PO ×2 (08:55→17:28)
[2022-11-28] MEDS: DULoxetine Hcl 20 MG Capsule 40 MG PO (08:55)
[2022-11-28] MEDS: Aspirin 81 MG TAB.CHEW PO (08:55)
[2022-11-28] MEDS: Polyethylene Glycol 3350 17 GM PACKET PO (08:55)
[2022-11-28] MEDS: Juven (unflavored) Packet 1 PACKET PO ×2 (08:56→17:28)
[2022-11-28] MEDS: Empagliflozin 10 MG Tablet PO (08:56)
[2022-11-28] MEDS: HYDROcodone Bitartrate/Apap 5/325 Tablet PO (13:48)
[2022-11-28] MEDS: Tamsulosin HCl 0.4 MG Capsule PO (17:29)
[2022-11-28 19:33] VITALS: BP 127/69; PULSE 65; RESP 14; TEMP 36.6; O2SAT 94
[2022-11-28 21:40] VITALS: PULSE 65; RESP 14; O2SAT 94
[2022-11-28] MEDS: traZODone 100 MG Tablet PO (21:45)
[2022-11-28] MEDS: levETIRAcetam 500 MG Tablet 750 MG PO (21:45)
[2022-11-28] MEDS: Pregabalin 75 MG Capsule PO (21:45)
[2022-11-29] MEDS: 0.9% Saline Lock 10 ML Syringe IV (05:47)
[2022-11-29] MEDS: Nystatin Powder 15gm Bottle 1 APPLIC TOPICAL (05:48)
[2022-11-29] MEDS: Juven (unflavored) Packet 1 PACKET PO ×2 (07:50→17:07)
[2022-11-29] MEDS: Potassium Chloride Oral Tablet 20 MEQ PO (07:51)
[2022-11-29] MEDS: Empagliflozin 10 MG Tablet PO (07:51)
[2022-11-29] MEDS: metFORMIN HCl 500 MG Tablet 250 MG PO ×2 (07:52→17:07)
[2022-11-29] MEDS: Aspirin 81 MG TAB.CHEW PO (07:52)
[2022-11-29 08:11] VITALS: BP 126/80; PULSE 68; RESP 16; TEMP 36.6; O2SAT 95
--- NOTE | 2022-11-29 08:25 | PCM.CONS.GEN ---
Assessment & Plan Assessment/Plan (1) Osteomyelitis of skull: PLAN: I would favor continuing cefepime as recommended by the infectious disease service at [facility], if there is concern of ongoing seizure activity will be reasonable to have the [facility] team reevaluate the patient and possibly change her antibiotic. I doubt that the cefepime is contributing to her seizure activity. HPI Consult Data Date of Consult: 11/29/22 HPI Narrative Reason for Consultation: Osteomyelitis of the skull, antimicrobial regimen HPI Narrative: HARSHAL AKERS, is a 67 F who presents to rehabilitation because of weakness and concerns of falls. Patient has a complicated history of a cerebrovascular accident/intracerebral hemorrhage and underwent surgery [facility] last month and on November 07 has some her skull removed because of infection. Patient was placed on cefepime 2 g IV every 8 hours long-term after placement of a PICC line in the right arm. Patient also has underlying diabetes mellitus. I attempted to review the records from [facility] hospitalization in mid October via the patient's MyChart; on November 07 she had multiple cultures obtained from the skull including Staphylococcus aureus and Staphylococcus epidermidis. Patient is alert responsive does not appear toxic. No fevers. Overall hemodynamically stable on cefepime. There is concerned that cefepime may be contributing to seizure activity. [facility] Medical History (Updated 11/26/22 @ 11:[address] Ramona Padilla, ) Abdominal adhesions Anxiety Chronic back pain Diabetes mellitus, type 2 Heme positive stool Hemorrhagic stroke History of ectopic History of hemorrhagic cerebrovascular accident (CVA) without residual deficits Hyperlipidemia Hypertension Sleep apnea Stroke/cerebrovascular accident Home Medications rosuvastatin 20 mg tablet (Crestor) 10 mg PO QHS Cholestrol 10/03/15 [History Last Taken Unknown] amlodipine 10 mg tablet 10 mg PO DAILY BP #30 tabs 08/14/22 [Rx Last Taken Unknown] carvedilol 6.25 mg tablet (Coreg) 6.25 mg PO BID BP #60 tabs 08/14/22 [Rx Last Taken Unknown] tamsulosin 0.4 mg capsule 0.4 mg PO DAILY Urine retention #30 caps 08/14/22 [Rx Last Taken Unknown] aspirin 81 mg tablet 81 mg PO DAILY heart 11/15/22 [History Last Taken Unknown] cefepime 2 gram intravenous solution 2 g IV Q8H infection 11/15/22 [History Last Taken Unknown] cholecalciferol (vitamin D3) 50 mcg (2,000 unit) tablet 50 mcg PO DAILY vitamin 11/15/22 [History Last Taken Unknown] lisinopril 10 mg tablet 20 mg PO DAILY bp 11/15/22 [History Last Taken Unknown] tramadol 50 mg tablet 50 mg PO Q8H PRN PRN Pain Score 1-10 11/15/22 [History Last Taken Unknown] trazodone 50 mg tablet 50 mg PO QHS sleep 11/15/22 [History Last Taken Unknown] acetaminophen 500 mg tablet 1,000 mg PO Q8 pain 11/18/22 [History Last Taken Unknown] bupropion HCl 75 mg tablet 75 mg PO BID mood 11/18/22 [History Last Taken Unknown] duloxetine 20 mg capsule,delayed release 20 mg PO DAILY mood 11/18/22 [History Last Taken Unknown] empagliflozin 10 mg tablet (Jardiance) 10 mg PO DAILY@0800 dm 11/18/22 [History Last Taken Unknown] magnesium chloride 64 mg (magnesium chloride) tablet,delayed release (Mag 64) 128 mg PO DAILY vitamin 11/18/22 [History Last Taken Unknown] metformin 500 mg tablet 250 mg PO BIDCM dm 11/18/22 [History Last Taken Unknown] nutrition tx glu intol,lac-free,soy-fiber 0.06 gram-1.2 kcal/mL liquid (Glucerna 1.2 Noe) 120 ml PO 4X/DAY supp 11/18/22 [History Last Taken Unknown] nystatin 100,000 unit/gram topical powder (Nyamyc) 1 applic topical TID skin 11/18/22 [History Last Taken Unknown] pantoprazole 40 mg tablet,delayed release 40 mg PO DAILY gerd 11/18/22 [History Last Taken Unknown] potassium chloride 20 mEq tablet,extended release 20 meq PO DAILY supp 11/18/22 [History Last Taken Unknown] pregabalin 75 mg capsule 75 mg PO QHS pain 11/18/22 [History Last Taken Unknown] Allergy/AdvReac Type Severity Reaction Status Date / Time latex Allergy Rash Verified 11/15/22 17:53 naproxen Allergy Rash Verified 11/15/22 17:53 Bwjrcnn-VQI-FwX Reductase Allergy MUSCLE Verified 11/15/22 17:53 Inhibitor ACHES [Qglgovw-Vru-Fol Reductase Inhibitor] Family History Other CVA (cerebral vascular accident) Diabetes Surgical History (Updated 11/26/22 @ 00:01 by Kati Guaman) History of bunionectomy History of open heart surgery History of vein stripping Hx of craniotomy Previous back surgery Social History household members: spouse housing: other details: One-story house with 2 steps to enter the house Smoking Status: Never smoker alcohol intake: never substance use type: does not use ROS ROS Narrative As stated in the history of present illness others negative Physical Exam Narrative Alert and responsive does not appear toxic. Patient has surgery of first call with incision is intact. Lungs are clear heart exam S1-S2 abdomen soft nontender. Lab / Micro Data 11/27/22 05:45 11/27/22 05:45
[2022-11-29] MEDS: DULoxetine Hcl 20 MG Capsule 40 MG PO (10:05)
[2022-11-29] MEDS: levETIRAcetam 500 MG Tablet 750 MG PO ×2 (10:06→20:36)
[2022-11-29] MEDS: Carvedilol 6.25 MG Tablet PO ×2 (10:08→20:36)
[2022-11-29] MEDS: Magnesium Chloride 64 MG Delay Rel.Tablet 128 MG PO (10:08)
[2022-11-29] MEDS: Pantoprazole Sodium 40 MG Tablet PO (10:08)
[2022-11-29] MEDS: Lisinopril 20 MG Tablet PO (10:09)
[2022-11-29] MEDS: Senna/Docusate Sodium 1 Tablet 2 TABLET PO ×2 (10:12→20:36)
[2022-11-29] MEDS: Cholecalciferol (VIT D3) 25 MCG TABLET (1,000 UNITS) 50 MCG PO (10:14)
--- NOTE | 2022-11-29 13:07 | CASEMGMT ---
Social Work IDT met with patient and for Team meeting. Discussed patient's progress in PT/OT/ST/SN. Educated to [facility] insurance with [employer] 12/05 and continued stay is not guaranteed with each review. Insurance requesting DC plans in place, however, IDT is not recommending DC yet. Pt is still weak and not medically stable. IDT also recommending pt and both have 24/7 supervision, especially for IADL tasks. has cognitive dysfunction. No family is close by to assist. SW educated to ALTERATIONS SUPERVISOR, SNF and [place] resources and financial liability for those options. Pt and feel they will qualify for Medicaid. SW offered to make referral to [facility] to complete Medicaid application. SW to revisit with pt and to discuss options in further detail. Will continue to follow to DC planning. Nadia Reynolds, MACHINE MOVER PAPER CLEANER
[2022-11-29] MEDS: HYDROcodone Bitartrate/Apap 5/325 Tablet PO ×2 (14:19→20:37)
--- NOTE | 2022-11-29 15:57 | PCM.PROGNOTE ---
Subjective Subjective Fany was seen on team rounds today. Her Deniz was present in the room. Afebrile VSS-blood pressure remains well controlled rate is within limits. Maintaining appropriate oxygen saturation on RA Oral intake is good. Oral fluid intake has increased significantly. Discussed with nursing - no problems that need addressed. Reviewed the PT/OT/ST notes Medication list reviewed. Peggy is feeling overwhelmed. She is tearful and worried about what comes next and how many brain surgeries can one have and still be able to think and function. She continues to have FRANKEL's and she tells me that her L arm is still shaking and she has not noticed much change with the Keppra. I spoke to the PT/OT and they tells me that the tremors have decreased significantly but, she is now have decreased coordination in the left hand compared to what it was ad admission and she is now having some Left side neglect. She is having FRANKEL's but, the pain medication is effective. More than anything she is overwhelmed and depressed. She is agreeable to discontinuing Lyrica due to its SE of causing depression and FRANKEL's and fatigue and peripheral edema. If she has trouble sleeping at night will increase the Seroquel. I reviewed Dr. Fleming's. He does not think the Cefepime is causing the FRANKEL's and the seizures. He favors continuing the Cefepime. Objective Data Objective Data Vital Signs: Vital Signs Temp Pulse Resp BP Pulse Ox O2 Del Method 97.9 F 68 16 126/80 H 95 Room Air 11/29/22 08:11 11/29/22 08:11 11/29/22 08:11 11/29/22 08:11 11/29/22 08:11 11/29/22 08:11 Oxygen Delivery Method Room Air Weight: 180 lb 8.937 oz Body Mass Index (BMI) 32.0 Intake & Output: Intake and Output for Last 24 Hours 11/27/22 11/28/22 11/29/22 23:59 23:59 23:59 Intake Total 2940 / 3060 2160 / 2160 780 / 780 Output Total 1600 / 1600 300 / 300 Balance 2940 / 2660 560 / 560 480 / 480 Lab / Micro Data 11/27/22 05:45 11/27/22 05:45 Micro: Microbiology 11/20/22 20:50 Stool Stool Occult Blood (PREMA) - Final Physical Exam Const alert Constitutional Narrative: Tearful, overwhelmed. General Appearance: cooperative HEENT moist oral mucous membranes Eyes PERRL and EOMs intact bilaterally Neck supple Resp normal respiratory effort, normal air movement and clear to auscultation bilaterally Effort and Inspection: Negative for tachypneic or labored Cardio regular rate, regular rhythm, no rub and no gallops Cardio Narrative: No ectopy GI normal to inspection, nondistended, normoactive bowel sounds, soft to palpation and non-tender GI Narrative: No guarding with palpation. Extremity no calf tenderness General Extremity: Negative for edema Skin General Skin Exam: no breakdown Rashes: no rashes Wound Narrative: The cranial incision is intact with no erythema and no DC. No swelling. There is no swelling of the R side of the head. Neuro CN's II-XII intact bilaterally Neuro Narrative: Having left side neglect which is new.......leaning to the left and has decreased coordination of the left hand the past few days. Unable to keep the left hand on the walker and unaware of it falling off. No visual changes. Psych Psych Narrative: Depressed and tearful. Feeling overwhelmed. 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 Continue therapy 2. Discontinue Lyrica - it can cause FRANKEL's, edema and depression.......all of which she has. It also can cause neurotoxicity. 3. MRI with and without contrast of the brain today - new L side neglect and decreased coordination of the Left hand. New CVA? abscess? bleed? 4. Increase the Keppra to 750 mg BID Charges/Coding Visit Charges Inpatient E&M: 16404 Subs Hosp L2
[2022-11-29] MEDS: Tamsulosin HCl 0.4 MG Capsule PO (17:07)
[2022-11-29 20:30] VITALS: BP 135/77; PULSE 68; RESP 18; TEMP 36.6; O2SAT 97
[2022-11-29] MEDS: traZODone 100 MG Tablet PO (20:35)
[2022-11-30] MEDS: 0.9% Saline Lock 10 ML Syringe IV ×2 (05:39→14:37)
[2022-11-30 06:00] VITALS: BMI 32.3
[2022-11-30] MEDS: Aspirin 81 MG TAB.CHEW PO (08:16)
[2022-11-30] MEDS: Empagliflozin 10 MG Tablet PO (08:17)
[2022-11-30] MEDS: Juven (unflavored) Packet 1 PACKET PO ×2 (08:17→17:12)
[2022-11-30] MEDS: metFORMIN HCl 500 MG Tablet 250 MG PO ×2 (08:17→17:12)
[2022-11-30] MEDS: Potassium Chloride Oral Tablet 20 MEQ PO (08:17)
[2022-11-30] MEDS: Carvedilol 6.25 MG Tablet PO ×2 (08:18→20:14)
[2022-11-30] MEDS: DULoxetine Hcl 20 MG Capsule 40 MG PO (08:18)
[2022-11-30] MEDS: levETIRAcetam 500 MG Tablet 750 MG PO ×2 (08:18→20:13)
[2022-11-30] MEDS: Senna/Docusate Sodium 1 Tablet 2 TABLET PO ×2 (08:20→20:15)
[2022-11-30] MEDS: Pantoprazole Sodium 40 MG Tablet PO (08:20)
[2022-11-30] MEDS: Lisinopril 20 MG Tablet PO (08:20)
[2022-11-30] MEDS: Cholecalciferol (VIT D3) 25 MCG TABLET (1,000 UNITS) 50 MCG PO (08:20)
[2022-11-30] MEDS: Magnesium Chloride 64 MG Delay Rel.Tablet 128 MG PO (08:20)
[2022-11-30 08:25] VITALS: BP 127/78; PULSE 64; RESP 16; TEMP 36.5; O2SAT 94
--- NOTE | 2022-11-30 09:00 | MRI_ITS ---
STUDY: MRI BRAIN WITH AND WITHOUT CONTRAST REASON FOR EXAM: Female, 67 years old. follow up on craniotomy -- new L side neglect and seizure TECHNIQUE: Standardized multiplanar fat and water weighted pulse sequences were obtained. IV 15 ml CLARISCAN was administered for the contrast portion of the examination. COMPARISON: 09/08/2022 FINDINGS: Normal size of the ventricles and extra-axial spaces for the patient''s age. Normal white matter tracts of the supratentorial brain. There is no evidence for recent intracranial ischemia or other cause of cytotoxic edema on diffusion weighted imaging (DWI). Status post right parietal craniectomy with subjacent encephalomalacia, gliosis, and hemosiderin staining consistent with postoperative changes. Normal bilateral basal ganglia. Normal thalami. There is no extra-axial fluid accumulation. Normal flow voids within the major intracranial circulation suggesting patency by spin echo criteria. Normal venous enhancement. There is no enhancing intra-axial or extra-axial abnormality. Normal sella turcica, pituitary gland, infundibular stalk, optic chiasm and hypothalamus. Normal tectal plate and pineal gland. Normal midbrain, shahbaz and medulla. Normal cerebellum. Normal basal cisterns. Normal bilateral temporal bones. Normal bilateral internal auditory canals. There are bilateral ocular lens implants with otherwise normal intraorbital contents. Normal visualized paranasal sinuses. Normal calvarium and skull base. Normal visualized soft tissue structures. Normal visualized upper cervical spine. MRI/Brain W/WO Contrast IMPRESSION: Status post right parietal craniectomy with subjacent encephalomalacia and scoliosis and hemosiderin staining in the right parietal lobe but no acute abnormality. Electronically Signed: Pastor Yee MD at 11:59 EDT ,
--- NOTE | 2022-11-30 09:56 | PCM.PROGNOTE ---
Subjective Subjective Afebrile VSS Maintaining appropriate oxygen saturation on RA Oral intake is good Discussed with nursing - no problems that need addressed Reviewed the PT/OT/ST notes Medication list reviewed. The MRI was cancelled for yesterday by radiology because they could not fit the test in and they did a NC CTB instead. It did not show acute infarction or abscess. It did show a tiny postsurgical subacute/chronic subdural effusion with dural thickening and mild pneumocephalus. There was no appreciable acute subdural hematoma. Doubt this causing the new L side neglect. Yesterday she was running into the wall on the left when ambulating and needed repeated cueing to scan to the left. Left hand was not staying on the walker and coordination was decreased. Will proceed with the MRI to exclude new ischemic CVA as the cause of the new neurologic deficits. Fany tells me that she had some lightheadedness when sitting up after her MRI. Her MM are very dry. She does not have a FRANKEL today. Still having difficulty keeping her L hand on the walker. 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 Denies any vision changes. Objective Data Objective Data Vital Signs: Vital Signs Temp Pulse Resp BP Pulse Ox O2 Del Method 97.7 F L 64 16 127/78 H 94 Room Air 11/30/22 08:25 11/30/22 08:25 11/30/22 08:25 11/30/22 08:25 11/30/22 08:25 11/30/22 08:25 Oxygen Delivery Method Room Air Weight: 182 lb 12.211 oz Body Mass Index (BMI) 32.3 Intake & Output: Intake and Output for Last 24 Hours 11/28/22 11/29/22 11/30/22 23:59 23:59 23:59 Intake Total 2160 / 2160 1340 / 1340 420 / 420 Output Total 1600 / 1600 300 / 300 Balance 560 / 560 1040 / 1040 420 / 420 Lab / Micro Data 11/27/22 05:45 11/27/22 05:45 Micro: Microbiology 11/20/22 20:50 Stool Stool Occult Blood (PREMA) - Final Physical Exam Const alert, oriented x3 and no apparent distress Constitutional Narrative: Not tearful. Her and a friend are in her room. General Appearance: cooperative, well kempt and well developed HEENT Mouth: dry mucous membranes Eyes PERRL, EOMs intact bilaterally, conjunctivae normal and no scleral icterus Neck supple, No nodes and no carotid bruits Chest Chest: symmetrical chest wall rise Resp normal respiratory effort, no use of accessory muscles and clear to auscultation bilaterally Resp Narrative: Excellent air exchange Effort and Inspection: Negative for tachypneic or labored Cardio regular rate, regular rhythm, S1 normal heart sound, S2 normal heart sound, no murmurs, no rub and no gallops Cardio Narrative: No ectopy GI normal to inspection, nondistended, normoactive bowel sounds, soft to palpation, non-tender and non-distended GI Narrative: No guarding with palpation. Extremity no calf tenderness Extremity Narrative: She has some swelling of the distal LE's.........I suspect this is due to Amlodipine and Lyrica. It is controlled with MONIK hose. Skin Skin Narrative: The cranial incision is intact with a few scabbed areas. There is no discharge from the incision and no bleeding. No radha-incisional erythema or swelling. The area surrounding the incision is not warm to touch. She denied pain with palpation around the incision. General Skin Exam: no breakdown Rashes: no rashes Neuro oriented x3, CN's II-XII intact bilaterally and moves all extremities Neuro Narrative: Having left side neglect which is new.......leaning to the left and has decreased coordination of the left hand the past few days. Unable to keep the left hand on the walker and unaware of it falling off. No visual changes. She has no extinction. Weaker on the left side. She had no tremors/shaking while I was in the room today or yesterday. Coordination / Balance: [id number] test normal and [id number] test normal Psych cooperative and denies suicidal ideation Psych Narrative: Overwhelmed and tearful at times but, she is still upbeat with staff and she is eating well and sleeping very well. I think the sadness is appropriate and I do not think at this time that she is depressed as much as she is fearful and sad. 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 Continue therapy 2. The MRI done today shows no evidence of acute ischemia and did not mention a subdural fluid collection. I have no reason for the new neurologic findings. Lyrica has been discontinued due to potential neurotoxic side effects and risk for worsening depression. Keppra is now at 750 BID. She never drinks enough fluid and the BUN/CREAT ratio is > 30. Possible that the new neurologic deficits are due to poor cerebral perfusion . Will give 3 liters of IV fluid and then recheck a BMP on Saturday. 3. Continue Cefepime. 4. If the partial motor seizures persist will consider consult with teleneurology to discuss med management. Seizures have not become generalized and they are less so I would like to observe over the weekend since the Lyrica was stopped yesterday. 5. Once again urged her to increase her fluid intake and explained how cerebral perfusion is affected by dehydration and how this can lead to neurologic deficits that are transient, robin with patients who have underlying disease of the brain. Deniz was in the room when I discussed the results of the MRI with Peggy. All questions were answered. Charges/Coding Visit Charges Inpatient E&M: 43466 Subs Hosp L2
--- NOTE | 2022-11-30 11:44 | CASEMGMT ---
Social Work SW followed up with pt on completing HCPOA. Pt does not have addresses and phone numbers to agents. Pt to notify this worker when addresses are received. CAMILLE GagnonW
[2022-11-30] MEDS: 0.9% Normal Saline 1,000 ML 75 ML IV (15:24)
[2022-11-30 19:02] VITALS: BP 130/69; PULSE 65; RESP 14; RESP 15; TEMP 36.2; O2SAT 99
[2022-11-30] MEDS: traZODone 100 MG Tablet PO (20:15)
[2022-12-01] MEDS: 0.9% Normal Saline 1,000 ML 75 ML IV ×2 (01:18→17:29)
[2022-12-01] MEDS: 0.9% Saline Lock 10 ML Syringe IV ×2 (06:33→23:11)
[2022-12-01 08:25] VITALS: BP 129/76; PULSE 61; RESP 18; TEMP 36.1; O2SAT 94
[2022-12-01] MEDS: Senna/Docusate Sodium 1 Tablet 2 TABLET PO ×2 (08:54→20:38)
[2022-12-01] MEDS: Magnesium Chloride 64 MG Delay Rel.Tablet 128 MG PO (08:54)
[2022-12-01] MEDS: levETIRAcetam 500 MG Tablet 750 MG PO ×2 (08:54→20:39)
[2022-12-01] MEDS: DULoxetine Hcl 20 MG Capsule 40 MG PO (08:55)
[2022-12-01] MEDS: metFORMIN HCl 500 MG Tablet 250 MG PO ×2 (08:56→17:29)
[2022-12-01] MEDS: Aspirin 81 MG TAB.CHEW PO (08:56)
[2022-12-01] MEDS: Empagliflozin 10 MG Tablet PO (08:57)
[2022-12-01] MEDS: Juven (unflavored) Packet 1 PACKET PO ×2 (08:58→17:29)
[2022-12-01] MEDS: Potassium Chloride Oral Tablet 20 MEQ PO (08:59)
[2022-12-01] MEDS: Carvedilol 6.25 MG Tablet PO ×2 (09:01→20:38)
[2022-12-01] MEDS: Lisinopril 20 MG Tablet PO (09:07)
[2022-12-01] MEDS: Cholecalciferol (VIT D3) 25 MCG TABLET (1,000 UNITS) 50 MCG PO (09:07)
[2022-12-01] MEDS: Pantoprazole Sodium 40 MG Tablet PO (09:08)
[2022-12-01 20:30] VITALS: BP 150/67; PULSE 68; RESP 16; TEMP 37.1; O2SAT 96; O2SAT 98
[2022-12-01] MEDS: traZODone 100 MG Tablet PO (20:38)
[2022-12-01] MEDS: HYDROcodone Bitartrate/Apap 5/325 Tablet PO (20:39)
--- NOTE | 2022-12-02 03:59 | NURSING ---
Reviewed and agree with Rohit FONTANEZ, documentation and assessment charting.
[2022-12-02 07:08] VITALS: BP 115/69; PULSE 61; RESP 16; TEMP 36.7; O2SAT 94
[2022-12-02 07:23] LABS: Bedside Glucose 103 mg/dL (74-106)
[2022-12-02] MEDS: Empagliflozin 10 MG Tablet PO (08:42)
[2022-12-02] MEDS: Magnesium Chloride 64 MG Delay Rel.Tablet 128 MG PO (08:42)
[2022-12-02] MEDS: metFORMIN HCl 500 MG Tablet 250 MG PO ×2 (08:42→17:06)
[2022-12-02] MEDS: Carvedilol 6.25 MG Tablet PO ×2 (08:43→22:29)
[2022-12-02] MEDS: Pantoprazole Sodium 40 MG Tablet PO (08:43)
[2022-12-02] MEDS: Cholecalciferol (VIT D3) 25 MCG TABLET (1,000 UNITS) 50 MCG PO (08:43)
[2022-12-02] MEDS: DULoxetine Hcl 20 MG Capsule 40 MG PO (08:44)
[2022-12-02] MEDS: Senna/Docusate Sodium 1 Tablet 2 TABLET PO ×2 (08:44→22:29)
[2022-12-02] MEDS: Aspirin 81 MG TAB.CHEW PO (08:45)
[2022-12-02] MEDS: Potassium Chloride Oral Tablet 20 MEQ PO (08:45)
[2022-12-02] MEDS: Lisinopril 20 MG Tablet PO (08:46)
[2022-12-02] MEDS: levETIRAcetam 500 MG Tablet 750 MG PO ×2 (08:46→22:29)
[2022-12-02] MEDS: Juven (unflavored) Packet 1 PACKET PO ×2 (08:49→17:06)
[2022-12-02] MEDS: HYDROcodone Bitartrate/Apap 5/325 Tablet PO (18:37)
[2022-12-02] MEDS: traZODone 100 MG Tablet PO (22:29)
[2022-12-02 22:30] VITALS: BP 131/74; PULSE 63; RESP 16; TEMP 36.4; O2SAT 98
[2022-12-02] MEDS: 0.9% Saline Lock 10 ML Syringe IV (22:33)
[2022-12-03 06:06] LABS: AST(SGOT) 18 U/L (15-37); Alanine Aminotransfer ALT/SGPT 27 U/L (13-56); Albumin, Serum 2.9 g/dL (3.2-5.0); Alkaline Phosphatase 51 U/L (45-117); Bilirubin, Direct 0.14 mg/dL (0.00-0.30); Globulin 3.7 g/dL (2.2-4.2); Protein, Total 6.6 g/dL (6.4-8.2)
[2022-12-03] MEDS: Juven (unflavored) Packet 1 PACKET PO ×2 (08:08→17:46)
[2022-12-03] MEDS: Aspirin 81 MG TAB.CHEW PO (08:08)
[2022-12-03] MEDS: Empagliflozin 10 MG Tablet PO (08:08)
[2022-12-03] MEDS: metFORMIN HCl 500 MG Tablet 250 MG PO ×2 (08:09→17:46)
[2022-12-03] MEDS: Potassium Chloride Oral Tablet 20 MEQ PO (08:09)
[2022-12-03 08:12] VITALS: BP 117/73; PULSE 62; RESP 18; TEMP 36.6; O2SAT 96
[2022-12-03] MEDS: levETIRAcetam 500 MG Tablet 750 MG PO ×2 (09:25→22:39)
[2022-12-03] MEDS: Carvedilol 6.25 MG Tablet PO ×2 (09:25→22:39)
[2022-12-03] MEDS: Pantoprazole Sodium 40 MG Tablet PO (09:25)
[2022-12-03] MEDS: Lisinopril 20 MG Tablet PO (09:26)
[2022-12-03] MEDS: Senna/Docusate Sodium 1 Tablet 2 TABLET PO ×2 (09:26→22:40)
[2022-12-03] MEDS: Magnesium Chloride 64 MG Delay Rel.Tablet 128 MG PO (09:26)
[2022-12-03] MEDS: Cholecalciferol (VIT D3) 25 MCG TABLET (1,000 UNITS) 50 MCG PO (09:26)
[2022-12-03] MEDS: DULoxetine Hcl 20 MG Capsule 40 MG PO (09:26)
--- NOTE | 2022-12-03 11:00 | PCM.PROGNOTE ---
Subjective Subjective Afebrile VSS Maintaining appropriate oxygen saturation on RA Oral intake is good Discussed with nursing - no problems that need addressed Reviewed the PT/OT/ST notes she is better able to keep the Left hand on the walker today. Medication list reviewed. LFTs are normal today. Rebeka tells me that the FRANKEL's are much better since the IV fluids and she feels stronger and more energetic. She is in a very good mood today. Rebeka denies cephalgia, lightheadedness, chest pain, palpitations, shortness of breath, cough, nausea/vomiting/abdominal pain, dysuria and calf pain. She tells me she is sleeping well at night and she has a good appetite. Objective Data Objective Data Vital Signs: Vital Signs Temp Pulse Resp BP Pulse Ox O2 Del Method 97.9 F 62 18 117/73 96 Room Air 12/03/22 08:12 12/03/22 08:12 12/03/22 08:12 12/03/22 08:12 12/03/22 08:12 12/03/22 08:12 Oxygen Delivery Method Room Air Weight: 182 lb 12.211 oz Body Mass Index (BMI) 32.3 Intake & Output: Intake and Output for Last 24 Hours 12/01/22 12/02/22 12/03/22 23:59 23:59 23:59 Intake Total 3942.5 / 3942.5 1790 / 1790 400 / 400 Balance 3942.5 / 3942.5 1790 / 1790 400 / 400 Lab / Micro Data 12/04/22 05:17 12/04/22 05:17 Labs: Laboratory Results - last 24 hr 12/03/22 05:10: Total Bilirubin 0.40, Direct Bilirubin 0.14, AST 18, ALT 27, Alkaline Phosphatase 51, Total Protein 6.6, Albumin 2.9 L, Globulin 3.7 Micro: Microbiology 11/20/22 20:50 Stool Stool Occult Blood (PREMA) - Final Physical Exam Const alert Constitutional Narrative: Much more alert today. General Appearance: cooperative HEENT Mouth: dry mucous membranes Resp clear to auscultation bilaterally Cardio regular rate, regular rhythm and no gallops GI normal to inspection, nondistended, normoactive bowel sounds, soft to palpation and non-tender Extremity no calf tenderness Skin Wound Narrative: The cranial incision is intact with no radha-incisional erythema, no discharge and no swelling. There are a few small scabs which she has not been picking at. Assessment & Plan Assessment/Plan (1) Debility: (2) Osteomyelitis of skull: (3) Status post craniotomy: (4) Depression: QUALIFIERS: Depression Type: reactive depression Qualified Code(s): F32.9 - Major depressive disorder, single episode, unspecified (5) Cognitive dysfunction: (6) Acute blood loss anemia: (7) Left hemiparesis: (8) Diabetes mellitus, type 2: QUALIFIERS: Diabetes mellitus care home insulin use: without care home use Diabetes mellitus complication status: without complication Qualified Code(s): E11.9 - Type 2 diabetes mellitus without complications (9) Hypertension: QUALIFIERS: Hypertension type: primary hypertension Qualified Code(s): I10 - Essential (primary) hypertension (10) Left breast mass: QUALIFIERS: Breast mass location: unspecified quadrant Qualified Code(s): N63.20 - Unspecified lump in the left breast, unspecified quadrant (11) Obstructive sleep apnea: PLAN: Plan 1. Continue therapy 2. Lab ordered for tomorrow 3. She is now aware that she needs to drink enough fluids daily to keep herself hydrated or she will have fatigue, lightheadedness and FRANKEL's. Charges/Coding Visit Charges Inpatient E&M: 64566 Subs Hosp L1
[2022-12-03] MEDS: HYDROcodone Bitartrate/Apap 5/325 Tablet PO (14:39)
[2022-12-03] MEDS: 0.9% Saline Lock 10 ML Syringe IV ×2 (14:43→23:00)
--- NOTE | 2022-12-03 16:34 | CASEMGMT ---
Social Work SW spoke with pt at bedside to discuss DC plans. SW inquired if pt felt she could DC home. Pt denied, stating she is not ready yet and she doesn't feel can care for her right now. SW reviewed options of PROGRAM MANAGEMENT SPECIALIST in the home for support for both pt and or SNF stay. Educated [employer] may deny SNF stay, in which case, pt would have part B coverage through insurance but room and board would be OOP. Pt unaware of fiances and offered to contact for information. Pt phoned and this worker spoke with via phone. states there is money in checking/savings account and money in an M[employer]JANE. Pt is also over income. Pt would not qualify for Medicaid and educated to using [employer]ANE funds to pay monthly for a SNF. is adamant about taking pt home regardless and making it work. planning to visit this evening. SW encouraged pt and to discuss DC plans and notify this worker. Both in agreement. SW will continue to follow. Nadia Reynolds, ANESTHETIC ASSISTANT TIRE REPAIRMAN
[2022-12-03 22:30] VITALS: BP 110/50; PULSE 63; RESP 16; TEMP 36.7; O2SAT 97
[2022-12-03] MEDS: traZODone 100 MG Tablet PO (22:40)
[2022-12-04 05:27] LABS: Absolute Lymphocyte Count 2.33 X10^3/uL (0.83-4.51); Absolute Neutrophil Count 1.6 X10^3/uL (2.0-7.7); Basophil# 0.04 X10^3/uL; Basophil% 0.8 % (0-1); Eosinophil# 0.31 X10^3/uL; Eosinophils% 6.3 % (0-5); Hematocrit 29.8 % (37-47); Hemoglobin 9.8 g/dL (12.0-15.0); Lymphocyte # 2.33 X10^3/ul (0.83-4.51); Lymphocyte % 47.2 % (19-41); Mean Corp Hgb Conc 32.9 g/dL (32-36); Mean Corpuscular Hgb 29.3 pg (27.0-32.0); Mean Corpuscular Volume 89.2 fL (81-99); Mean Platelet Vol. 9.9 fl (6.2-12.0); Monocyte# 0.62 X10^3/uL; Monocyte% 12.6 % (0-10); NRBC Flagged by Analyzer 0 % (0-5); Neutrophil # 1.64 X10^3/uL (2.7-7.7); Neutrophil % 33.1 % (47-70); Platelet Count 175 K/mm3 (150-450); RBC Distribution Width CV 13.6 % (11.6-14.6); RBC Distribution Width SD 44.5 fl (35.1-43.9); Red Blood Count 3.34 M/mm3 (4.2-5.4); White Blood Count 4.9 K/mm3 (4.4-11.0)
[2022-12-04 05:50] LABS: ALB/GLOB Ratio 0.8 RATIO (0.9-2.4); AST(SGOT) 20 U/L (15-37); Alanine Aminotransfer ALT/SGPT 30 U/L (13-56); Alkaline Phosphatase 54 U/L (45-117); Anion Gap 3 (5-15); BUN 19 mg/dL (7-18); BUN/Creat Ratio 31.2 RATIO (10-20); Calcium,Total 9.2 mg/dL (8.5-10.1); Chloride 108 mmol/L (98-107); Creatinine, Serum 0.61 mg/dL (0.55-1.02); EST Glomerular Filtration Rate 104 mL/min (>60); Est Glom Filt Rate - Afr Amer 126 mL/min (>60); Estimated Creatinine Clearance 42.59 ml/min; Globulin 3.9 g/dL (2.2-4.2); Glucose 114 mg/dL (74-106); Magnesium 1.8 mg/dL (1.6-2.6); Phosphorus 3.7 mg/dL (2.5-4.9); Protein, Total 6.9 g/dL (6.4-8.2); Sodium Level 141 mmol/L (136-145)
[2022-12-04 06:09] LABS: CRP < 2.90 mg/L (0.0-3.0)
[2022-12-04 07:38] VITALS: BP 129/80; PULSE 67; RESP 18; TEMP 36.8; O2SAT 96
[2022-12-04] MEDS: 0.9% Saline Lock 10 ML Syringe IV ×3 (07:43→22:55)
[2022-12-04] MEDS: Empagliflozin 10 MG Tablet PO (07:57)
[2022-12-04] MEDS: metFORMIN HCl 500 MG Tablet 250 MG PO ×2 (07:57→17:06)
[2022-12-04] MEDS: Aspirin 81 MG TAB.CHEW PO (07:57)
[2022-12-04] MEDS: Carvedilol 6.25 MG Tablet PO ×2 (07:58→22:33)
[2022-12-04] MEDS: DULoxetine Hcl 20 MG Capsule 40 MG PO (07:58)
[2022-12-04] MEDS: Potassium Chloride Oral Tablet 20 MEQ PO (07:58)
[2022-12-04] MEDS: Juven (unflavored) Packet 1 PACKET PO ×2 (07:58→17:07)
[2022-12-04] MEDS: levETIRAcetam 500 MG Tablet 750 MG PO ×2 (07:59→22:33)
[2022-12-04] MEDS: Magnesium Chloride 64 MG Delay Rel.Tablet 128 MG PO (07:59)
[2022-12-04] MEDS: Cholecalciferol (VIT D3) 25 MCG TABLET (1,000 UNITS) 50 MCG PO (08:00)
[2022-12-04] MEDS: Pantoprazole Sodium 40 MG Tablet PO (08:00)
[2022-12-04] MEDS: Senna/Docusate Sodium 1 Tablet 2 TABLET PO ×2 (08:00→22:33)
[2022-12-04] MEDS: Lisinopril 20 MG Tablet PO (08:01)
[2022-12-04 08:03] LABS: Erythrocyte Sedimentation Rate 19 mm/hr (0-30)
[2022-12-04] MEDS: HYDROcodone Bitartrate/Apap 5/325 Tablet PO ×2 (14:44→18:37)
[2022-12-04 19:55] VITALS: BP 113/65; PULSE 66; RESP 14; TEMP 36.8; O2SAT 97
[2022-12-04 22:30] VITALS: PULSE 66; RESP 14; O2SAT 98
[2022-12-04] MEDS: traZODone 100 MG Tablet PO (22:33)
[2022-12-05] MEDS: 0.9% Saline Lock 10 ML Syringe IV (05:29)
[2022-12-05] MEDS: metFORMIN HCl 500 MG Tablet 250 MG PO ×2 (08:00→16:46)
[2022-12-05] MEDS: Empagliflozin 10 MG Tablet PO (08:00)
[2022-12-05] MEDS: Juven (unflavored) Packet 1 PACKET PO ×2 (08:00→16:46)
[2022-12-05] MEDS: Aspirin 81 MG TAB.CHEW PO (08:00)
[2022-12-05] MEDS: Potassium Chloride Oral Tablet 20 MEQ PO (08:01)
[2022-12-05 08:12] VITALS: BP 128/78; PULSE 68; RESP 16; TEMP 36.6; O2SAT 95
[2022-12-05] MEDS: Magnesium Chloride 64 MG Delay Rel.Tablet 128 MG PO (10:05)
[2022-12-05] MEDS: DULoxetine Hcl 20 MG Capsule 40 MG PO (10:05)
[2022-12-05] MEDS: Lisinopril 20 MG Tablet PO (10:05)
[2022-12-05] MEDS: Senna/Docusate Sodium 1 Tablet 2 TABLET PO ×2 (10:05→20:33)
[2022-12-05] MEDS: Carvedilol 6.25 MG Tablet PO ×2 (10:05→20:33)
[2022-12-05] MEDS: Pantoprazole Sodium 40 MG Tablet PO (10:05)
[2022-12-05] MEDS: levETIRAcetam 500 MG Tablet 750 MG PO ×2 (10:05→20:32)
[2022-12-05] MEDS: Cholecalciferol (VIT D3) 25 MCG TABLET (1,000 UNITS) 50 MCG PO (10:06)
--- NOTE | 2022-12-05 12:39 | PN_ITS ---
Subjective Subjective Afebrile VSS Maintaining appropriate oxygen saturation on RA Oral intake is good Discussed with nursing - no problems that need addressed Reviewed the PT/OT/ST notes Medication list reviewed. All lab from 12/04/2022 was personally reviewed. White blood cell count is normal at 4.9. Neutrophils are decreased but the percentage lymphocytes is again elevated at 47.2. Eosinophils are 6.3% but she has no complaints of pruritus or hives. ESR is down to 19 and the CRP is less than 2.9. BUN is 19 and the creatinine is stable at 0.61. Potassium is 4 and sodium is within normal limits. Phos and mag are within normal limits. LFTs are normal. Rebeka tells me she feels good. She is very alert and no longer napping during the day. She is making progress with therapy but still having left-sided neglect. She is also still having occasional shaking of the left hand, mostly when she is handling the walker. It is rhythmic. No tremoring of the leg any longer. Tells me she is sleeping well and she has a good appetite. She denies chest pain, shortness of breath, dysuria and calf tenderness. She also denies cephalgia and lightheadedness. Objective Data Objective Data Vital Signs: Vital Signs Temp Pulse Resp BP Pulse Ox O2 Del Method 97.9 F 68 16 128/78 H 95 Room Air 12/05/22 08:12 12/05/22 08:12 12/05/22 08:12 12/05/22 08:12 12/05/22 08:12 12/05/22 08:12 Oxygen Delivery Method Room Air Weight: 182 lb 12.211 oz Body Mass Index (BMI) 32.3 Intake & Output: Intake and Output for Last 24 Hours 12/03/22 12/04/22 12/05/22 23:59 23:59 23:59 Intake Total 1420 / 1420 2019 560 / 560 Output Total 500 / 500 550 / 550 Balance 920 / 920 1470 / 1470 560 / 560 Lab / Micro Data 12/04/22 05:17 12/04/22 05:17 Micro: Microbiology 11/20/22 20:50 Stool Stool Occult Blood (PREMA) - Final Physical Exam Const alert, oriented x3 and no apparent distress General Appearance: cooperative Resp clear to auscultation bilaterally Cardio regular rate, regular rhythm and no gallops GI normal to inspection, nondistended, normoactive bowel sounds, soft to palpation and non-tender Extremity General Extremity: edema bilateral (The edema is non-pitting and I suspect this is just her body habitus and not edema? ) Skin Rashes: no rashes Wound Narrative: The craniotomy incision is healing. There a just 2 small dry scabs now. There is no wound dehiscence, radha-incisional erythema or discharge. She has awoken at night and finds herself scratching her head and I suggested that she wear gloves at night or a hat/hoodie at night so that she does not cause an opening in the skin. I also suggested she keep her fingernails short. Psych cooperative Psych Narrative: I no longer feel that she is depressed. I think she is sad about the changes in her life recently and also about her 's decline. She now realizes he has dementia. 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 Continue therapy 2. Team meeting tomorrow. Will have to discuss disposition at [facility]. The team does not feel that she will be safe at Home with only her assisting her. Peggy is in denial and thinks that everything will get better when she goes home and Deniz will be able to help her. Deniz's memory is very poor and I think he will not remember he has to assist her to the BR and assist with toileting and she tells me that he usually gets upset when she tells him to do something. 3. Will have nursing call and find out the discontinuation date for the Cefepime. Charges/Coding Visit Charges Inpatient E&M: 99925 Subs Hosp L2
[2022-12-05] MEDS: HYDROcodone Bitartrate/Apap 5/325 Tablet PO ×2 (15:15→23:01)
--- NOTE | 2022-12-05 15:37 | CASEMGMT ---
Social Work presented to this worker's office to follow up on insurance outcome. Insurance approved additional days with NRD 12/12, expecting concrete DC plans or a DC date. SW inquired the DC plan from conversation and pt had the previous evening. still wavering on DC plan but ultimately wants pt to DC home. inquiring about stop date for IV ATB as pt cannot return to surgery until infection is resolved. SW to speak with nursing on stop date. appreciative. -- SW followed up with pt on outcome of conversation last evening on DC, and updated on NRD 12/12 with DC plans. Pt stated I guess I'll just go home. SW reiterated the options for [facility] [employer] or SNF placement. Educated to submitting for precert at a SNF first. Pt still unsure of concrete DC plan, and also questioning stop date for IV ATB. SW requested from nursing to obtain stop date. Will continue to follow. Nadia Reynolds, G[employer]LL COOK [employer]ON[employer] COOKER
[2022-12-05 18:54] VITALS: BP 144/72; PULSE 65; RESP 14; TEMP 36.7; O2SAT 98
[2022-12-05] MEDS: Nystatin Powder 15gm Bottle 1 APPLIC TOPICAL (20:30)
[2022-12-05] MEDS: traZODone 100 MG Tablet PO (20:31)
[2022-12-06] MEDS: Nystatin Powder 15gm Bottle 1 APPLIC TOPICAL ×2 (06:13→19:43)
[2022-12-06 07:56] VITALS: BP 127/67; PULSE 64; RESP 16; TEMP 37.1; O2SAT 93
[2022-12-06] MEDS: DULoxetine Hcl 20 MG Capsule 40 MG PO (08:09)
[2022-12-06] MEDS: Juven (unflavored) Packet 1 PACKET PO ×2 (08:09→16:08)
[2022-12-06] MEDS: levETIRAcetam 500 MG Tablet 750 MG PO ×2 (08:10→19:40)
[2022-12-06] MEDS: Cholecalciferol (VIT D3) 25 MCG TABLET (1,000 UNITS) 50 MCG PO (08:11)
[2022-12-06] MEDS: Carvedilol 6.25 MG Tablet PO ×2 (08:11→19:42)
[2022-12-06] MEDS: Aspirin 81 MG TAB.CHEW PO (08:11)
[2022-12-06] MEDS: Empagliflozin 10 MG Tablet PO (08:12)
[2022-12-06] MEDS: Potassium Chloride Oral Tablet 20 MEQ PO (08:12)
[2022-12-06] MEDS: Magnesium Chloride 64 MG Delay Rel.Tablet 128 MG PO (08:12)
[2022-12-06] MEDS: metFORMIN HCl 500 MG Tablet 250 MG PO ×2 (08:13→16:08)
[2022-12-06] MEDS: Pantoprazole Sodium 40 MG Tablet PO (08:14)
[2022-12-06] MEDS: Lisinopril 20 MG Tablet PO (08:15)
[2022-12-06] MEDS: Senna/Docusate Sodium 1 Tablet 2 TABLET PO ×2 (08:15→20:54)
--- NOTE | 2022-12-06 12:21 | PCM.PROGNOTE ---
Subjective Subjective Rebeka was seen on team rounds today. Her Deniz was present in the room. Afebrile VSS Maintaining appropriate oxygen saturation on RA Oral intake is good Discussed with nursing - no problems that need addressed Reviewed the PT/OT/ST notes - Still having neglect of the left side and needing. She is ambulating with a FWW. She needs only min assist with LB dressing and is SBA for most of her other ADL's. She is able to do 12 sit to stands at standby assist with pushing up with her right arm only. She has done 5 steps that are 4 inches and 2 steps that are 6 inches. Has ambulated up to 240 feet on various surfaces and busy hallways with only 1 deviation to the left at the end of ambulation when she was fatigued. Still having significant difficulty with cognitive dysfunction. This is my biggest concern with going home because her has dementia and both of them have a poor memory. Medications is a big concern. Deniz tells me that Peggy makes mistakes and he corrects the mistakes but, I wonder at his ability to catch all the mistakes? Medication list reviewed. Objective Data Objective Data Vital Signs: Vital Signs Temp Pulse Resp BP Pulse Ox O2 Del Method 98.8 F 64 16 127/67 H 93 Room Air 12/06/22 07:56 12/06/22 07:56 12/06/22 07:56 12/06/22 07:56 12/06/22 07:56 12/06/22 07:56 Oxygen Delivery Method Room Air Weight: 182 lb 12.211 oz Body Mass Index (BMI) 32.3 Intake & Output: Intake and Output for Last 24 Hours 12/04/22 12/05/22 12/06/22 23:59 23:59 23:59 Intake Total 2019 2360 / 2360 340 / 340 Output Total 550 / 550 900 / 900 800 / 800 Balance 1470 / 1470 1460 / 1460 -460 / -460 Lab / Micro Data 12/04/22 05:17 12/04/22 05:17 Micro: Microbiology 11/20/22 20:50 Stool Stool Occult Blood (PREMA) - Final Physical Exam Const alert, oriented x3 and no apparent distress General Appearance: cooperative Eyes PERRL and EOMs intact bilaterally Neck supple Resp normal respiratory effort and clear to auscultation bilaterally Resp Narrative: very good air exchange. Effort and Inspection: Negative for tachypneic, labored or uses accessory muscles Cardio regular rate, regular rhythm and no gallops GI normal to inspection, nondistended, normoactive bowel sounds, soft to palpation and non-tender Extremity no calf tenderness Skin Rashes: no rashes Assessment & Plan Assessment/Plan (1) Debility: (2) Osteomyelitis of skull: (3) Status post craniotomy: (4) Depression: QUALIFIERS: Depression Type: reactive depression Qualified Code(s): F32.9 - Major depressive disorder, single episode, unspecified (5) Cognitive dysfunction: (6) Acute blood loss anemia: (7) Left hemiparesis: (8) Diabetes mellitus, type 2: QUALIFIERS: 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 Continue therapy 2. Rebeka was given a list of local senior care facilities to pick from. She still maintains she thinks she will be fine at home. 3. Deniz will come in tomorrow and the speech therapist will work with Deniz and Rebeka on setting up pillboxes. 4. We discussed using a local pharmacy to package medications so that Deniz and Rebeka do not have to set up pillboxes and they are interested in this. 5. I will discuss DC with Peggy when Deniz is not in the room. I think she and Deniz are both in denial and need to start thinking realistically about changing their living situation if they are unable to manage at home. Charges/Coding Visit Charges Inpatient E&M: 75798 Subs Hosp L2
--- NOTE | 2022-12-06 13:14 | CASEMGMT ---
Social Work IDT met with patient and for Team meeting. Discussed patient's progress in PT/OT/ST/SN. Educated to [employer] insurance with NRD 12/12 and requesting DC date or concrete plans in place. IDT continues to recommend continued therapy at a SNF for 17/12 care. Continued to express concerns with caring for pt at home d/t 's cognition. Educated to giving pt's cues, significant left visual neglect, using x2 assist at night and pt fluctuates with care needs. ID DR is being contacted to get stop date for IV ATB. cannot complete IVs at home. Dr recommended attend a ST session to ensure he can set up pill box as well. agreed. Empathized pt and to have a decision on DC tomorrow. SW will continue to follow. Nadia Reynolds, MOVIE ACTOR SKIP TENDER
[2022-12-06] MEDS: HYDROcodone Bitartrate/Apap 5/325 Tablet PO ×2 (15:05→19:46)
[2022-12-06 19:30] VITALS: BP 131/75; PULSE 60; RESP 15; TEMP 36.2; O2SAT 100
[2022-12-06] MEDS: traZODone 100 MG Tablet PO (19:41)
[2022-12-06 22:00] VITALS: PULSE 60; RESP 15; O2SAT 100
[2022-12-07 05:41] VITALS: BMI 32.3
[2022-12-07] MEDS: Nystatin Powder 15gm Bottle 1 APPLIC TOPICAL ×2 (06:21→20:29)
[2022-12-07 08:04] VITALS: BP 131/68; PULSE 64; RESP 16; TEMP 35.8; O2SAT 94
[2022-12-07] MEDS: levETIRAcetam 500 MG Tablet 750 MG PO ×2 (08:52→20:27)
[2022-12-07] MEDS: Pantoprazole Sodium 40 MG Tablet PO (08:52)
[2022-12-07] MEDS: Juven (unflavored) Packet 1 PACKET PO ×2 (08:52→16:58)
[2022-12-07] MEDS: Carvedilol 6.25 MG Tablet PO ×2 (08:52→20:27)
[2022-12-07] MEDS: Aspirin 81 MG TAB.CHEW PO (08:52)
[2022-12-07] MEDS: DULoxetine Hcl 20 MG Capsule 40 MG PO (08:52)
[2022-12-07] MEDS: Magnesium Chloride 64 MG Delay Rel.Tablet 128 MG PO (08:54)
[2022-12-07] MEDS: Lisinopril 20 MG Tablet PO (08:54)
[2022-12-07] MEDS: Potassium Chloride Oral Tablet 20 MEQ PO (08:54)
[2022-12-07] MEDS: Empagliflozin 10 MG Tablet PO (08:58)
[2022-12-07] MEDS: Cholecalciferol (VIT D3) 25 MCG TABLET (1,000 UNITS) 50 MCG PO (08:58)
[2022-12-07] MEDS: metFORMIN HCl 500 MG Tablet 250 MG PO ×2 (08:59→16:58)
[2022-12-07] MEDS: HYDROcodone Bitartrate/Apap 5/325 Tablet PO (15:11)
[2022-12-07 19:34] VITALS: BP 130/64; PULSE 62; RESP 16; TEMP 36.4; O2SAT 98
[2022-12-07] MEDS: Senna/Docusate Sodium 1 Tablet 2 TABLET PO (20:30)
[2022-12-07] MEDS: traZODone 100 MG Tablet PO (20:31)
[2022-12-08] MEDS: Nystatin Powder 15gm Bottle 1 APPLIC TOPICAL ×2 (05:31→21:21)
[2022-12-08 08:00] VITALS: BP 123/72; PULSE 62; RESP 16; TEMP 36.8; O2SAT 94
[2022-12-08] MEDS: Cholecalciferol (VIT D3) 25 MCG TABLET (1,000 UNITS) 50 MCG PO (08:44)
[2022-12-08] MEDS: Lisinopril 20 MG Tablet PO (08:44)
[2022-12-08] MEDS: Senna/Docusate Sodium 1 Tablet 2 TABLET PO (08:44)
[2022-12-08] MEDS: Juven (unflavored) Packet 1 PACKET PO ×2 (08:44→18:13)
[2022-12-08] MEDS: Magnesium Chloride 64 MG Delay Rel.Tablet 128 MG PO (08:45)
[2022-12-08] MEDS: Empagliflozin 10 MG Tablet PO (08:45)
[2022-12-08] MEDS: metFORMIN HCl 500 MG Tablet 250 MG PO ×2 (08:45→17:45)
[2022-12-08] MEDS: Pantoprazole Sodium 40 MG Tablet PO (08:45)
[2022-12-08] MEDS: DULoxetine Hcl 20 MG Capsule 40 MG PO (08:48)
[2022-12-08] MEDS: Carvedilol 6.25 MG Tablet PO ×2 (08:48→20:41)
[2022-12-08] MEDS: Aspirin 81 MG TAB.CHEW PO (08:48)
[2022-12-08] MEDS: Potassium Chloride Oral Tablet 20 MEQ PO (08:50)
[2022-12-08] MEDS: levETIRAcetam 500 MG Tablet 750 MG PO ×2 (08:50→20:40)
--- NOTE | 2022-12-08 11:06 | PCM.PROGNOTE ---
Subjective Subjective AFebrile VSS maintaining appropriate O2 sat on RA Rebeka tells me she is no longer having any jerking movements of her left hand. She is much more alert and talkative and although tearful at times she is doing well from the depression stand point. Peggy and Deniz both failed the medication management with ST Saturday.. They are agreeable to use [facility] to pkg their RX's for them. I think Deniz saw that he is having cognitive dysfunction and Peggy told me he is going to make an appt with a doctor to evaluate his cognition. He is currently not on any medication for dementia. Peggy also tells me that they have a friend who can stay with them at the house for the first week home. We discussed planning for the future which she has not wanted to think about. She wants to think that everything will get better if she goes home. I posed the question What will happen when Deniz continues to get worse and she has to take care of him?. She told me that he has gotten lost when driving home. We talked about assisted living. She is coming around to looking at reality and not being in denial. She is sad about this but, I would not say she is depressed at this time. If she does go home I got her to agree to call me if things are decompensating. I also would like to talk with her friend Vincent, who looks in on Deniz and Peggy, prior to DC to discuss warning signs that things are not going well. We talked about Meals on wheels but, Peggy was not able to give me and answer. Alert, making good eye contact Cooperative Lungs-clear to auscultation with excellent air exchange Heart-regular rate and rhythm, no gallop Abdomen-soft, nontender, nondistended, normal bowel sounds No pitting edema of the lower extremities The incision is intact with no radha-incisional erythema, no swelling and no dehiscence. There is no discharge and there are only 2 small scabs left. on the incision Impressions 1. Osteomyelitis of the skull -status post craniotomy. 2. 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 3. Cognitive dysfunction 4. Left-sided neglect 5. Seizure disorder Continue therapy she will look at the SNF list........she feels like she is being pushed into going to SNF. I told her we are all just concerned with her safety and Deniz's ability to assist her at home and take over some of the house upkeep. I think she will likely decide to go home and have the friend live with them for the first week. Objective Data Objective Data Vital Signs: Vital Signs Temp Pulse Resp BP Pulse Ox O2 Del Method 98.2 F 62 16 123/72 H 94 Room Air 12/08/22 08:00 12/08/22 08:00 12/08/22 08:00 12/08/22 08:00 12/08/22 08:00 12/08/22 08:00 Oxygen Delivery Method Room Air Weight: 182 lb 5.156 oz Body Mass Index (BMI) 32.3 Intake & Output: Intake and Output for Last 24 Hours 12/06/22 12/07/22 12/08/22 23:59 23:59 23:59 Intake Total 1410 / 1410 2660 / 3020 460 / 460 Output Total 1800 / 1800 1300 / 1925 1225 / 1225 Balance -390 / -390 1360 / 1095 -765 / -765 Lab / Micro Data 12/04/22 05:17 12/04/22 05:17 Micro: Microbiology 11/20/22 20:50 Stool Stool Occult Blood (PREMA) - Final Charges/Coding Visit Charges Inpatient E&M: 56017 Subs Hosp L1
[2022-12-08] MEDS: 0.9% Saline Lock 10 ML Syringe IV (15:03)
[2022-12-08 20:10] VITALS: BP 109/64; PULSE 67; RESP 17; TEMP 36.6; O2SAT 96
[2022-12-08] MEDS: HYDROcodone Bitartrate/Apap 5/325 Tablet PO (20:32)
[2022-12-08] MEDS: traZODone 100 MG Tablet PO (20:42)
[2022-12-09] MEDS: Nystatin Powder 15gm Bottle 1 APPLIC TOPICAL ×2 (06:09→23:24)
[2022-12-09 09:00] VITALS: BP 128/62; PULSE 59; RESP 16; TEMP 36.8; O2SAT 95
[2022-12-09] MEDS: Magnesium Chloride 64 MG Delay Rel.Tablet 128 MG PO (10:38)
[2022-12-09] MEDS: metFORMIN HCl 500 MG Tablet 250 MG PO ×2 (10:38→16:11)
[2022-12-09] MEDS: Juven (unflavored) Packet 1 PACKET PO ×2 (10:38→16:12)
[2022-12-09] MEDS: Potassium Chloride Oral Tablet 20 MEQ PO (10:39)
[2022-12-09] MEDS: Lisinopril 20 MG Tablet PO (10:39)
[2022-12-09] MEDS: Empagliflozin 10 MG Tablet PO (10:40)
[2022-12-09] MEDS: levETIRAcetam 500 MG Tablet 750 MG PO ×2 (10:41→23:25)
[2022-12-09] MEDS: Carvedilol 6.25 MG Tablet PO ×2 (10:41→23:25)
[2022-12-09] MEDS: Aspirin 81 MG TAB.CHEW PO (10:41)
[2022-12-09] MEDS: DULoxetine Hcl 20 MG Capsule 40 MG PO (10:42)
[2022-12-09] MEDS: Cholecalciferol (VIT D3) 25 MCG TABLET (1,000 UNITS) 50 MCG PO (10:44)
[2022-12-09] MEDS: Pantoprazole Sodium 40 MG Tablet PO (10:44)
[2022-12-09] MEDS: 0.9% Saline Lock 10 ML Syringe IV ×2 (13:21→23:17)
[2022-12-09] MEDS: HYDROcodone Bitartrate/Apap 5/325 Tablet PO (16:11)
[2022-12-09 22:30] VITALS: BP 106/60; PULSE 63; RESP 18; TEMP 36.8; O2SAT 96
[2022-12-09] MEDS: traZODone 100 MG Tablet PO (23:25)
[2022-12-10 07:45] VITALS: BP 109/72; PULSE 67; RESP 18; TEMP 36.2; O2SAT 97
[2022-12-10] MEDS: Juven (unflavored) Packet 1 PACKET PO ×2 (08:10→17:06)
[2022-12-10] MEDS: levETIRAcetam 500 MG Tablet 750 MG PO ×2 (08:11→21:14)
[2022-12-10] MEDS: Potassium Chloride Oral Tablet 20 MEQ PO (08:11)
[2022-12-10] MEDS: Carvedilol 6.25 MG Tablet PO ×2 (08:12→21:14)
[2022-12-10] MEDS: DULoxetine Hcl 20 MG Capsule 40 MG PO (08:12)
[2022-12-10] MEDS: Pantoprazole Sodium 40 MG Tablet PO (08:12)
[2022-12-10] MEDS: Cholecalciferol (VIT D3) 25 MCG TABLET (1,000 UNITS) 50 MCG PO (08:12)
[2022-12-10] MEDS: Empagliflozin 10 MG Tablet PO (08:13)
[2022-12-10] MEDS: Aspirin 81 MG TAB.CHEW PO (08:13)
[2022-12-10] MEDS: Magnesium Chloride 64 MG Delay Rel.Tablet 128 MG PO (08:17)
[2022-12-10] MEDS: Lisinopril 20 MG Tablet PO (08:18)
[2022-12-10] MEDS: metFORMIN HCl 500 MG Tablet 250 MG PO ×2 (08:21→17:09)
[2022-12-10] MEDS: Senna/Docusate Sodium 1 Tablet 2 TABLET PO ×2 (08:21→21:14)
--- NOTE | 2022-12-10 12:06 | PCM.PROGNOTE ---
Subjective Subjective Afebrile VSS-blood pressure is well controlled. Maintaining appropriate oxygen saturation on RA Oral intake is good..... For fluids and for food. She has been doing a much better job staying hydrated now that she can feel so much better when hydrated. Weight is stable Discussed with nursing - no problems that need addressed Reviewed the PT/OT/ST notes Medication list reviewed. The lab stay of antibiotics will be 12/19/2022. Rebeka has no complaints today. She denies lightheadedness, vertigo, cephalgia, shortness of breath, chest pain, palpitations, nausea/vomiting/abdominal pain, dysuria and calf tenderness. She is sleeping well at night and has a good appetite. She has not been tearful. she is anxious because she got a call from [facility] wanting her to pre-register for an Appt on the and she does not know how to do this. I told her Marysol will be scheduling her appts at [facility] and they will not be until after the .......this is the day the antibiotics will stop. She will need and appt with ID and with Dr. Jose. She was relived to her that Marysol would take care of it. Objective Data Objective Data Vital Signs: Vital Signs Temp Pulse Resp BP Pulse Ox O2 Del Method 97.1 F L 67 18 109/72 97 Room Air 12/10/22 07:45 12/10/22 07:45 12/10/22 07:45 12/10/22 07:45 12/10/22 07:45 12/10/22 07:45 Oxygen Delivery Method Room Air Weight: 182 lb 5.156 oz Body Mass Index (BMI) 32.3 Intake & Output: Intake and Output for Last 24 Hours 12/08/22 12/09/22 12/10/22 23:59 23:59 23:59 Intake Total 2570 / 2570 1675 / 1675 160 / 160 Output Total 1925 / 1925 1000 / 1000 Balance 645 / 645 675 / 675 160 / 160 Lab / Micro Data 12/04/22 05:17 12/04/22 05:17 Micro: Microbiology 11/20/22 20:50 Stool Stool Occult Blood (PREMA) - Final Physical Exam Const alert and no apparent distress Constitutional Narrative: She will turn to look at me on the left side when I ask her to but, otherwise she looks to the left. She is also still having Left side neglect and veers to the right when ambulating. She will need Deniz to be with her at [facility]/S[facility] if she chooses to go home rather than to SNF. No trembling of the Left hand. Good hang grasp on the left hand but, when you are not asking her to do something with the left arm she allows it to hang at her side. She has to be reminded to keep the left hand on the WW. General Appearance: cooperative HEENT moist oral mucous membranes Resp normal respiratory effort, normal air movement and clear to auscultation bilaterally Effort and Inspection: Negative for tachypneic or labored Cardio regular rate, regular rhythm and no gallops GI normal to inspection, nondistended, normoactive bowel sounds, soft to palpation and non-tender Extremity no calf tenderness Extremity Narrative: No pitting edema/ Skin General Skin Exam: no breakdown Rashes: no rashes Wound Narrative: The craniotomy incision remains intact with no radha-incisional swelling or erythema. 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 Continue therapy 2. Weekly lab to be drawn tomorrow. 3. Continue Keppra at 750 mg twice daily. She no longer has any tremoring/seizure activity on the left side. She is alert during the day and she is sleeping well at night. Charges/Coding Visit Charges Inpatient E&M: 55134 Subs Hosp L2
[2022-12-10] MEDS: 0.9% Saline Lock 10 ML Syringe IV ×2 (14:35→21:34)
[2022-12-10] MEDS: Glycerin/Hypromellose/PEG400 15 ml Bottle 1 DRP EACH EYE (14:38)
[2022-12-10] MEDS: HYDROcodone Bitartrate/Apap 5/325 Tablet PO ×2 (15:38→21:18)
[2022-12-10 21:00] VITALS: BP 146/75; PULSE 59; PULSE 9; RESP 14; TEMP 36.9; O2SAT 96
[2022-12-10] MEDS: traZODone 100 MG Tablet PO (21:14)
[2022-12-10] MEDS: Nystatin Powder 15gm Bottle 1 APPLIC TOPICAL (21:15)
[2022-12-11] MEDS: 0.9% Saline Lock 10 ML Syringe IV ×2 (05:27→22:20)
[2022-12-11 05:58] LABS: Absolute Lymphocyte Count 1.77 X10^3/uL (0.83-4.51); Absolute Neutrophil Count 1.1 X10^3/uL (2.0-7.7); Basophil# 0.04 X10^3/uL; Basophil% 1.1 % (0-1); Eosinophil# 0.25 X10^3/uL; Eosinophils% 6.8 % (0-5); Hemoglobin 9.3 g/dL (12.0-15.0); Lymphocyte # 1.77 X10^3/ul (0.83-4.51); Lymphocyte % 47.8 % (19-41); Mean Corpuscular Hgb 27.8 pg (27.0-32.0); Mean Corpuscular Volume 89.6 fL (81-99); Mean Platelet Vol. 10.5 fl (6.2-12.0); Monocyte% 13.5 % (0-10); NRBC Flagged by Analyzer 0 % (0-5); Neutrophil # 1.13 X10^3/uL (2.7-7.7); Neutrophil % 30.5 % (47-70); Platelet Count 171 K/mm3 (150-450); RBC Distribution Width CV 13.1 % (11.6-14.6); Red Blood Count 3.35 M/mm3 (4.2-5.4); White Blood Count 3.7 K/mm3 (4.4-11.0)
[2022-12-11 06:33] LABS: ALB/GLOB Ratio 0.8 RATIO (0.9-2.4); AST(SGOT) 11 U/L (15-37); Alanine Aminotransfer ALT/SGPT 24 U/L (13-56); Albumin, Serum 2.9 g/dL (3.2-5.0); Alkaline Phosphatase 50 U/L (45-117); Anion Gap 3 (5-15); BUN 25 mg/dL (7-18); BUN/Creat Ratio 37.5 RATIO (10-20); Calcium,Total 9.3 mg/dL (8.5-10.1); Chloride 111 mmol/L (98-107); Creatinine, Serum 0.67 mg/dL (0.55-1.02); EST Glomerular Filtration Rate 94 mL/min (>60); Est Glom Filt Rate - Afr Amer 113 mL/min (>60); Estimated Creatinine Clearance 42.59 ml/min; Globulin 3.7 g/dL (2.2-4.2); Glucose 113 mg/dL (74-106); Phosphorus 3.9 mg/dL (2.5-4.9); Potassium 3.8 mmol/L (3.5-5.1); Protein, Total 6.6 g/dL (6.4-8.2); Sodium Level 143 mmol/L (136-145)
[2022-12-11 06:35] LABS: CRP < 2.90 mg/L (0.0-3.0)
[2022-12-11 06:43] LABS: Erythrocyte Sedimentation Rate 21 mm/hr (0-30)
[2022-12-11 07:58] VITALS: BP 96/56; PULSE 65; RESP 18; TEMP 36.2; O2SAT 94
[2022-12-11] MEDS: Magnesium Chloride 64 MG Delay Rel.Tablet 128 MG PO (08:41)
[2022-12-11] MEDS: Aspirin 81 MG TAB.CHEW PO (08:41)
[2022-12-11] MEDS: DULoxetine Hcl 20 MG Capsule 40 MG PO (08:41)
[2022-12-11] MEDS: levETIRAcetam 500 MG Tablet 750 MG PO ×2 (08:41→21:15)
[2022-12-11] MEDS: Lisinopril 20 MG Tablet PO (08:42)
[2022-12-11] MEDS: Empagliflozin 10 MG Tablet PO (08:42)
[2022-12-11] MEDS: Carvedilol 6.25 MG Tablet PO ×2 (08:42→21:16)
[2022-12-11] MEDS: Cholecalciferol (VIT D3) 25 MCG TABLET (1,000 UNITS) 50 MCG PO (08:42)
[2022-12-11] MEDS: Potassium Chloride Oral Tablet 20 MEQ PO (08:42)
[2022-12-11] MEDS: metFORMIN HCl 500 MG Tablet 250 MG PO ×2 (08:42→18:07)
[2022-12-11] MEDS: Pantoprazole Sodium 40 MG Tablet PO (08:42)
[2022-12-11] MEDS: Senna/Docusate Sodium 1 Tablet 2 TABLET PO ×2 (08:43→21:16)
[2022-12-11] MEDS: Juven (unflavored) Packet 1 PACKET PO ×2 (08:43→18:08)
[2022-12-11] MEDS: Nystatin Powder 15gm Bottle 1 APPLIC TOPICAL ×2 (08:44→21:11)
--- NOTE | 2022-12-11 11:40 | NURSING ---
Call from Jason Byrd from [facility] called [phone] and said she would like to be called if pt gets discharged prior to 12/19/22. Pt will need to be on her IV antb until then and if she needs to be on home IV antb this company can get her set up. They will just take a verbal order to reinstate her if needed.
--- NOTE | 2022-12-11 12:24 | PN_ITS ---
Subjective Subjective Afebrile VSS Maintaining appropriate oxygen saturation on RA Oral intake is good Discussed with nursing - no problems that need addressed. She slept well last night. No seizure activity. Reviewed the PT/OT/ST notes Medication list reviewed. All lab drawn this AM was personally reviewed. White blood cell count today is mildly decreased at 3.7. Hemoglobin is 9.3 which is stable and very somewhat with state of hydration. Platelets are within normal limits. Differential is abnormal with 30% neutrophils and 48% lymphs. There are 6.8% eosinophils. ESR is 21. BMP is remarkable for an increased BUN at 25 but the creatinine is stable at 0.67. LFTs are normal. CRP is less than 2.9. Rebeka denies diarrhea, soreness in her mouth and painful swallowing. She denies vaginal discharge and also denies any symptoms of vaginitis. Denies any shaking of the left arm or left leg. She also denies chest pain, cough, shortness of breath, cephalgia, lightheadedness, nausea/vomiting/abdominal pain, dysuria and calf tenderness. Objective Data Objective Data Vital Signs: Vital Signs Temp Pulse Resp BP Pulse Ox O2 Del Method 97.2 F L 65 18 96/56 L 94 Room Air 12/11/22 07:58 12/11/22 07:58 12/11/22 07:58 12/11/22 07:58 12/11/22 07:58 12/11/22 07:58 Oxygen Delivery Method Room Air Weight: 182 lb 5.156 oz Body Mass Index (BMI) 32.3 Intake & Output: Intake and Output for Last 24 Hours 12/09/22 12/10/22 12/11/22 23:59 23:59 23:59 Intake Total 1675 / 1675 1685 / 1685 785 / 785 Output Total 1000 / 1000 Balance 675 / 675 1685 / 1685 785 / 785 Lab / Micro Data 12/11/22 05:47 12/11/22 05:47 Labs: Laboratory Results - last 24 hr 12/11/22 05:47: WBC 3.7 L, RBC 3.35 L, Hgb 9.3 L, Hct 30.0 L, MCV 89.6, MCH 27.8, MCHC 31.0 L, RDW Std Deviation 43.0, RDW Coeff of Carmelo 13.1, Plt Count 171, MPV 10.5, Immature Gran % (Auto) 0.300, Neut % (Auto) 30.5 L, Lymph % (Auto) 47.8 H, Rankin % (Auto) 13.5 H, Eos % (Auto) 6.8 H, Baso % (Auto) 1.1 H, Absolute Neuts (auto) 1.1 L, Absolute Lymphs (auto) 1.77, Nucleated RBC % 0, ESR 21, Sodium 143, Potassium 3.8, Chloride 111 H, Carbon Dioxide 29.0, Anion Gap 3 L, BUN 25 H, Creatinine 0.67, Estim Creat Clear Calc 42.59, Est GFR (MDRD) Af Amer 113, Est GFR (MDRD) Non-Af 94, BUN/Creatinine Ratio 37.5 H, Glucose 113 H, Calcium 9.3, Phosphorus 3.9, Magnesium 2.0, Total Bilirubin 0.40, AST 11 L, ALT 24, Alkaline Phosphatase 50, C-React Prot Ext Range < 2.90, Total Protein 6.6, Albumin 2.9 L, Globulin 3.7, Albumin/Globulin Ratio 0.8 L Micro: Microbiology 11/20/22 20:50 Stool Stool Occult Blood (PREMA) - Final Physical Exam Const alert and no apparent distress General Appearance: cooperative Resp normal respiratory effort, normal air movement and clear to auscultation bilaterally Cardio regular rate, regular rhythm and no gallops GI normal to inspection, nondistended, normoactive bowel sounds, soft to palpation and non-tender Extremity no calf tenderness Extremity Narrative: No pitting edema Skin General Skin Exam: no breakdown Rashes: no rashes Wound Narrative: The craniotomy incision is intact with no dehiscence, no radha-incisional eryt zeinab, no discharge and no swelling around the incision. Psych cooperative and affect normal Assessment & Plan Assessment/Plan (1) Debility: (2) Osteomyelitis of skull: (3) Status post craniotomy: (4) Depression: QUALIFIERS: Depression Type: reactive depression Qualified Code(s): F32.9 - Major depressive disorder, single episode, unspecified (5) Cognitive dysfunction: (6) Acute blood loss anemia: (7) Left hemiparesis: (8) Diabetes mellitus, type 2: QUALIFIERS: Diabetes mellitus [facility] insulin use: without [facility] use Diabetes mellitus complication status: without complication Qualified Code(s): E11.9 - Type 2 diabetes mellitus without complications (9) Hypertension: QUALIFIERS: Hypertension type: primary hypertension Qualified Code(s): I10 - Essential (primary) hypertension (10) Left breast mass: QUALIFIERS: Breast mass location: unspecified quadrant Qualified Code(s): N63.20 - Unspecified lump in the left breast, unspecified quadrant (11) Obstructive sleep apnea: PLAN: Plan 1. Continue therapy 2. The leukopenia I suspect is due to cefepime. Cefepime can cause agranulocytosis so we will continue to monitor the white blood cell count closely. Hemoglobin is stable and the platelets are normal. 3. We will fax a copy of the lab from this morning to her infectious disease doctor. Charges/Coding Visit Charges Inpatient E&M: 84298 Subs Hosp L2
[2022-12-11] MEDS: HYDROcodone Bitartrate/Apap 5/325 Tablet PO (16:10)
[2022-12-11 19:18] VITALS: BP 119/66; PULSE 64; RESP 14; TEMP 36.6; O2SAT 96
[2022-12-11] MEDS: traZODone 100 MG Tablet PO (21:16)
[2022-12-12] MEDS: Magnesium Hydroxide 30 ML UDC PO (05:16)
[2022-12-12] MEDS: Nystatin Powder 15gm Bottle 1 APPLIC TOPICAL ×2 (05:20→23:10)
[2022-12-12 08:10] VITALS: BP 143/86; PULSE 64; RESP 18; TEMP 36.6; O2SAT 97
[2022-12-12] MEDS: Juven (unflavored) Packet 1 PACKET PO ×2 (08:44→17:18)
[2022-12-12] MEDS: Senna/Docusate Sodium 1 Tablet 2 TABLET PO ×2 (08:48→20:05)
[2022-12-12] MEDS: Cholecalciferol (VIT D3) 25 MCG TABLET (1,000 UNITS) 50 MCG PO (08:48)
[2022-12-12] MEDS: Magnesium Chloride 64 MG Delay Rel.Tablet 128 MG PO (08:48)
[2022-12-12] MEDS: Lisinopril 20 MG Tablet PO (08:48)
[2022-12-12] MEDS: Polyethylene Glycol 3350 17 GM PACKET PO (08:48)
[2022-12-12] MEDS: Pantoprazole Sodium 40 MG Tablet PO (08:48)
[2022-12-12] MEDS: Potassium Chloride Oral Tablet 20 MEQ PO (08:49)
[2022-12-12] MEDS: Carvedilol 6.25 MG Tablet PO ×2 (08:49→20:04)
[2022-12-12] MEDS: Empagliflozin 10 MG Tablet PO (08:49)
[2022-12-12] MEDS: DULoxetine Hcl 20 MG Capsule 40 MG PO (08:49)
[2022-12-12] MEDS: metFORMIN HCl 500 MG Tablet 250 MG PO ×2 (08:49→17:18)
[2022-12-12] MEDS: levETIRAcetam 500 MG Tablet 750 MG PO ×2 (08:49→20:04)
[2022-12-12] MEDS: Aspirin 81 MG TAB.CHEW PO (08:50)
[2022-12-12] MEDS: HYDROcodone Bitartrate/Apap 5/325 Tablet PO ×2 (13:53→20:14)
[2022-12-12] MEDS: 0.9% Saline Lock 10 ML Syringe IV (13:53)
[2022-12-12 19:26] VITALS: BP 110/60; PULSE 63; RESP 14; TEMP 36.5; O2SAT 94
[2022-12-12] MEDS: traZODone 100 MG Tablet PO (20:04)
[2022-12-13 07:33] VITALS: BP 122/61; PULSE 60; RESP 17; TEMP 36.8; O2SAT 98
[2022-12-13] MEDS: Juven (unflavored) Packet 1 PACKET PO ×2 (08:04→17:45)
[2022-12-13] MEDS: Cholecalciferol (VIT D3) 25 MCG TABLET (1,000 UNITS) 50 MCG PO (08:05)
[2022-12-13] MEDS: metFORMIN HCl 500 MG Tablet 250 MG PO ×2 (08:05→17:45)
[2022-12-13] MEDS: Empagliflozin 10 MG Tablet PO (08:05)
[2022-12-13] MEDS: Potassium Chloride Oral Tablet 20 MEQ PO (08:05)
[2022-12-13] MEDS: Magnesium Chloride 64 MG Delay Rel.Tablet 128 MG PO (08:05)
[2022-12-13] MEDS: DULoxetine Hcl 20 MG Capsule 40 MG PO (08:05)
[2022-12-13] MEDS: Lisinopril 20 MG Tablet PO (08:05)
[2022-12-13] MEDS: Pantoprazole Sodium 40 MG Tablet PO (08:05)
[2022-12-13] MEDS: Carvedilol 6.25 MG Tablet PO ×2 (08:05→19:41)
[2022-12-13] MEDS: Senna/Docusate Sodium 1 Tablet 2 TABLET PO ×2 (08:06→19:43)
[2022-12-13] MEDS: Aspirin 81 MG TAB.CHEW PO (08:06)
[2022-12-13] MEDS: levETIRAcetam 500 MG Tablet 750 MG PO ×2 (08:06→19:42)
[2022-12-13] MEDS: Polyethylene Glycol 3350 17 GM PACKET PO (08:07)
[2022-12-13] MEDS: Nystatin Powder 15gm Bottle 1 APPLIC TOPICAL ×2 (08:12→19:42)
--- NOTE | 2022-12-13 12:21 | PCM.PROGNOTE ---
Subjective Subjective Afebrile VSS Maintaining appropriate oxygen saturation on RA Oral intake is good Discussed with nursing - no problems that need addressed Reviewed the PT/OT/ST notes Medication list reviewed. She is still having significant Left side neglect and is leaning heavily to the left needing a lot of VC's. When she gets a FRANKEL she has increased confusion and increased LOB to the left. Nothing has really changed recently and she is status Quo. Cielo now realizes how much she is leaving to the left and veering to the left when she is walking and this is the first time she has realized this. Continues to have issues with memory/planning. Peggy had a teleconference with the ID doc at [facility] today. She has a new anaerobic bacterium growing on the cultures and she is now going to start Rocephin 2 GM Q 12H for 6 weeks. This can be given IVP and her has done this before. Peggy and Deniz have decided to go home at [place] on 12/20/22. Rebeka denies lightheadedness, cephalgia at the present time, chest pain, shortness of breath, palpitations, nausea/vomiting/constipation/diarrhea, mouth pain, painful swallowing, dysuria and calf tenderness. Objective Data Objective Data Vital Signs: Vital Signs Temp Pulse Resp BP Pulse Ox O2 Del Method 98.2 F 60 17 122/61 H 98 Room Air 12/13/22 07:33 12/13/22 07:33 12/13/22 07:33 12/13/22 07:33 12/13/22 07:33 12/13/22 07:33 Oxygen Delivery Method Room Air Weight: 182 lb 5.156 oz Body Mass Index (BMI) 32.3 Intake & Output: Intake and Output for Last 24 Hours 12/11/22 12/12/22 12/13/22 23:59 23:59 23:59 Intake Total 1805 / 1805 1780 / 1780 540 / 540 Output Total 400 / 400 500 / 500 500 / 500 Balance 1405 / 1405 1280 / 1280 40 / 40 Lab / Micro Data 12/11/22 05:47 12/11/22 05:47 Micro: Microbiology 11/20/22 20:50 Stool Stool Occult Blood (PREMA) - Final Physical Exam Const alert and no apparent distress General Appearance: cooperative Chest Chest: symmetrical chest wall rise Resp normal respiratory effort, normal air movement and clear to auscultation bilaterally Resp Narrative: very good air exchange. Cardio regular rate, regular rhythm and no gallops Cardio Narrative: No ectopy GI normal to inspection, nondistended, normoactive bowel sounds, soft to palpation, non-tender and non-distended GI Narrative: No guarding with palpation. Extremity no calf tenderness and no pedal edema Skin General Skin Exam: no breakdown Rashes: no rashes Wound Narrative: The craniotomy incision remains intact with no radha-incisional swelling or erythema. There is no purulent discharge Neuro CN's II-XII intact bilaterally and moves all extremities Psych cooperative, affect normal, speech normal, activity/motor behavior normal, denies hallucinations, denies homicidal ideation and denies suicidal ideation Attitude: calm Activity / Motor Behavior: appropriate eye contact Assessment & Plan Assessment/Plan (1) Debility: (2) Osteomyelitis of skull: (3) Status post craniotomy: (4) Depression: QUALIFIERS: Depression Type: reactive depression Qualified Code(s): F32.9 - Major depressive disorder, single episode, unspecified (5) Cognitive dysfunction: (6) Acute blood loss anemia: (7) Left hemiparesis: (8) Diabetes mellitus, type 2: QUALIFIERS: Diabetes mellitus longshore 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 Continue therapy 2. Start Rocephin 2 g IV every 12 hours x6 weeks 3. Discontinue cefepime 4. Fasting blood sugars have been excellent on recent lab. We will check a blood sugar prior to supper tonight. 5. I am very concerned about Peggy's decision to go home next week and have Deniz do the IVP Rocephin. Pati since I hear she is growing an anaerobe. The infection failed to resolve with home IV antibiotics prior to the craniotomy and she went on to develop osteomyelitis from the cellulitis. Deniz I am convinced has dementia and has even gotten lost trying to get home in the past. They have no children to support them. With the left side neglect I feel she is at high risk for falls. Deniz gets angry/irritable when she tells him what he has to do. I told both of them today that she is NOT to get up and walk without Deniz present. WE will have HHC at [place] with a nurse and will also notify [employer] to make sure that they are safe at home. I am still going to try and talk her out of going home. This is a difficult situation with them and I do not feel they always make good decisions. Neither one of them is able to do the medications and we are going to fax a list of the medications at discharge to [facility] pharmacy so they can be prepackaged for them. Neither one of them has a good memory and we have to keep repeating things over and over again. Charges/Coding Visit Charges Inpatient E&M: 25798 Subs Hosp L2
--- NOTE | 2022-12-13 12:43 | CASEMGMT ---
Addendum entered by Nadia Reynolds 12/13/22 14:31: Pt has telehealth appt with ID Dr at [facility]. Dr ordered continued dose of IV ATB Q12 for 6 weeks. states he can adminsster that at home. However, when this worker returned to follow up with pt without . Pt still expressed concern. Pt looking forward to being home but acknowledges she gets the care she needs here. SW validated feelings. Offered to refer to [facility] to get pricing. Explained this worker can request more time from insurance at the 12/18 update, if pt chooses to remain. Offered a SNF stay as well. Pt appreciative. SW sent referral to [facility] via [employer]. Original Note: Social Work IDT met with patient and for Team meeting. Discussed patient's progress in PT/OT/ST/SN. Educated to [facility] insurance with [employer] 12/18 with DC 12/20. Pt's IV ATB stop 12/19. IDT continues to recommend SNF. Pt and both electing to DC home. SW offered HHC v OP. Pt prefers HHC with [facility], whom pt used prior. Discussed DME needs. Pt wanting the walker to glide better on carpet. SW printed picture for walker skiis, recommended from therapy. making referral to [facility] to get meds prepackaged for less room for error at home. to transport pt home. requesting APS referral to ensure safety at home. SW phoned referral to [facility] for PT/OT/ST/SN/FRANKEL/SW. Plan: DC home with 12/20, [facility] PT/OT/ST/SN/FRANKEL/SW, APS referral Nadia Reynolds, CAMILLE MCKEONW
[2022-12-13] MEDS: 0.9% Saline Lock 10 ML Syringe IV (13:50)
[2022-12-13] MEDS: HYDROcodone Bitartrate/Apap 5/325 Tablet PO (15:34)
[2022-12-13 17:01] LABS: Bedside Glucose 114 mg/dL (74-106)
[2022-12-13 17:01] LABS: Absolute Lymphocyte Count 2.15 X10^3/uL (0.83-4.51); Absolute Neutrophil Count 1.5 X10^3/uL (2.0-7.7); Basophil# 0.03 X10^3/uL; Basophil% 0.6 % (0-1); Eosinophil# 0.27 X10^3/uL; Eosinophils% 5.8 % (0-5); Hematocrit 31.2 % (37-47); Hemoglobin 9.8 g/dL (12.0-15.0); Lymphocyte # 2.15 X10^3/ul (0.83-4.51); Lymphocyte % 45.8 % (19-41); Mean Corp Hgb Conc 31.4 g/dL (32-36); Mean Corpuscular Hgb 28.2 pg (27.0-32.0); Mean Corpuscular Volume 89.7 fL (81-99); Mean Platelet Vol. 10.7 fl (6.2-12.0); Monocyte# 0.75 X10^3/uL; NRBC Flagged by Analyzer 0 % (0-5); Neutrophil # 1.48 X10^3/uL (2.7-7.7); Neutrophil % 31.6 % (47-70); Platelet Count 201 K/mm3 (150-450); RBC Distribution Width CV 13.3 % (11.6-14.6); RBC Distribution Width SD 43.7 fl (35.1-43.9); Red Blood Count 3.48 M/mm3 (4.2-5.4); White Blood Count 4.7 K/mm3 (4.4-11.0)
[2022-12-13 17:36] LABS: AST(SGOT) 15 U/L (15-37); Alanine Aminotransfer ALT/SGPT 24 U/L (13-56); Albumin, Serum 3.1 g/dL (3.2-5.0); Alkaline Phosphatase 54 U/L (45-117); Anion Gap 3 (5-15); BUN 22 mg/dL (7-18); BUN/Creat Ratio 31.8 RATIO (10-20); Bilirubin, Direct 0.12 mg/dL (0.00-0.30); Calcium,Total 9.3 mg/dL (8.5-10.1); Chloride 107 mmol/L (98-107); Creatinine, Serum 0.69 mg/dL (0.55-1.02); EST Glomerular Filtration Rate 90 mL/min (>60); Est Glom Filt Rate - Afr Amer 108 mL/min (>60); Estimated Creatinine Clearance 42.59 ml/min; Glucose 119 mg/dL (74-106); Potassium 3.9 mmol/L (3.5-5.1); Protein, Total 7.1 g/dL (6.4-8.2); Sodium Level 139 mmol/L (136-145)
[2022-12-13 19:31] VITALS: BP 158/80; PULSE 64; RESP 15; TEMP 36.5; O2SAT 99
[2022-12-13] MEDS: traZODone 100 MG Tablet PO (19:42)
[2022-12-14] MEDS: Nystatin Powder 15gm Bottle 1 APPLIC TOPICAL ×2 (04:46→21:57)
[2022-12-14 05:56] VITALS: BMI 32.1
[2022-12-14 07:38] VITALS: BP 153/81; PULSE 65; RESP 16; TEMP 36.9; O2SAT 95
[2022-12-14] MEDS: metFORMIN HCl 500 MG Tablet 250 MG PO ×2 (07:59→16:16)
[2022-12-14] MEDS: Aspirin 81 MG TAB.CHEW PO (07:59)
[2022-12-14] MEDS: Potassium Chloride Oral Tablet 20 MEQ PO (07:59)
[2022-12-14] MEDS: Empagliflozin 10 MG Tablet PO (08:00)
[2022-12-14] MEDS: Juven (unflavored) Packet 1 PACKET PO ×2 (08:00→16:16)
[2022-12-14] MEDS: levETIRAcetam 500 MG Tablet 750 MG PO ×2 (09:27→21:56)
[2022-12-14] MEDS: DULoxetine Hcl 20 MG Capsule 40 MG PO (09:27)
[2022-12-14] MEDS: Carvedilol 6.25 MG Tablet PO ×2 (09:27→21:57)
[2022-12-14] MEDS: Senna/Docusate Sodium 1 Tablet 2 TABLET PO ×2 (09:28→21:56)
[2022-12-14] MEDS: Magnesium Chloride 64 MG Delay Rel.Tablet 128 MG PO (09:28)
[2022-12-14] MEDS: Lisinopril 20 MG Tablet PO (09:28)
[2022-12-14] MEDS: Cholecalciferol (VIT D3) 25 MCG TABLET (1,000 UNITS) 50 MCG PO (09:28)
[2022-12-14] MEDS: Polyethylene Glycol 3350 17 GM PACKET PO (09:28)
[2022-12-14] MEDS: Pantoprazole Sodium 40 MG Tablet PO (09:28)
[2022-12-14] MEDS: 0.9% Saline Lock 10 ML Syringe IV ×3 (11:14→23:06)
--- NOTE | 2022-12-14 13:08 | CASEMGMT ---
Addendum entered by Nadia Reynolds 12/14/22 15:12: [facility] unable to accept d/t high care needs. SW referred to 9 other agencies. Will continue to follow. Original Note: Social Work [facility] is unable to accept d/t high care needs. SW referred to [facility]. I provided pricing - $40/week. SW to update pt. Nadia Reynolds, CAMILLE BLOWER BLAST FURNACE
[2022-12-14] MEDS: HYDROcodone Bitartrate/Apap 5/325 Tablet PO (16:16)
[2022-12-14 20:14] VITALS: BP 140/78; PULSE 65; RESP 18; TEMP 36.8; O2SAT 96
[2022-12-14 20:18] VITALS: PULSE 70
[2022-12-14] MEDS: traZODone 100 MG Tablet PO (21:56)
[2022-12-15] MEDS: Nystatin Powder 15gm Bottle 1 APPLIC TOPICAL ×2 (05:32→21:32)
[2022-12-15 08:00] VITALS: BP 136/70; PULSE 71; RESP 17; TEMP 36.7; O2SAT 98
[2022-12-15] MEDS: Juven (unflavored) Packet 1 PACKET PO ×2 (08:50→17:13)
[2022-12-15] MEDS: metFORMIN HCl 500 MG Tablet 250 MG PO ×2 (08:50→17:13)
[2022-12-15] MEDS: Empagliflozin 10 MG Tablet PO (08:54)
[2022-12-15] MEDS: levETIRAcetam 500 MG Tablet 750 MG PO ×2 (08:54→21:31)
[2022-12-15] MEDS: Magnesium Chloride 64 MG Delay Rel.Tablet 128 MG PO (08:54)
[2022-12-15] MEDS: Pantoprazole Sodium 40 MG Tablet PO (08:54)
[2022-12-15] MEDS: DULoxetine Hcl 20 MG Capsule 40 MG PO (08:55)
[2022-12-15] MEDS: Carvedilol 6.25 MG Tablet PO ×2 (08:55→21:32)
[2022-12-15] MEDS: Cholecalciferol (VIT D3) 25 MCG TABLET (1,000 UNITS) 50 MCG PO (08:55)
[2022-12-15] MEDS: Lisinopril 20 MG Tablet PO (08:55)
[2022-12-15] MEDS: Aspirin 81 MG TAB.CHEW PO (08:55)
[2022-12-15] MEDS: Potassium Chloride Oral Tablet 20 MEQ PO (08:57)
[2022-12-15] MEDS: 0.9% Saline Lock 10 ML Syringe IV (09:19)
[2022-12-15 19:53] VITALS: BP 128/52; PULSE 78; RESP 16; TEMP 36.7; O2SAT 99
[2022-12-15] MEDS: HYDROcodone Bitartrate/Apap 5/325 Tablet PO (21:31)
[2022-12-15] MEDS: traZODone 100 MG Tablet PO (21:31)
[2022-12-15] MEDS: Senna/Docusate Sodium 1 Tablet 2 TABLET PO (21:32)
[2022-12-16] MEDS: 0.9% Saline Lock 10 ML Syringe IV ×2 (05:55→08:50)
[2022-12-16] MEDS: Nystatin Powder 15gm Bottle 1 APPLIC TOPICAL ×2 (05:57→20:07)
[2022-12-16] MEDS: Empagliflozin 10 MG Tablet PO (07:49)
[2022-12-16] MEDS: DULoxetine Hcl 20 MG Capsule 40 MG PO (07:49)
[2022-12-16] MEDS: Potassium Chloride Oral Tablet 20 MEQ PO (07:49)
[2022-12-16] MEDS: Carvedilol 6.25 MG Tablet PO ×2 (07:50→20:07)
[2022-12-16] MEDS: Magnesium Chloride 64 MG Delay Rel.Tablet 128 MG PO (07:50)
[2022-12-16] MEDS: Pantoprazole Sodium 40 MG Tablet PO (07:50)
[2022-12-16] MEDS: Lisinopril 20 MG Tablet PO (07:50)
[2022-12-16] MEDS: Cholecalciferol (VIT D3) 25 MCG TABLET (1,000 UNITS) 50 MCG PO (07:50)
[2022-12-16] MEDS: Aspirin 81 MG TAB.CHEW PO (07:50)
[2022-12-16] MEDS: levETIRAcetam 500 MG Tablet 750 MG PO ×2 (07:52→20:06)
[2022-12-16] MEDS: metFORMIN HCl 500 MG Tablet 250 MG PO ×2 (07:52→16:27)
[2022-12-16] MEDS: Juven (unflavored) Packet 1 PACKET PO ×2 (07:55→16:27)
[2022-12-16 08:56] VITALS: BP 154/67; PULSE 61; RESP 16; TEMP 37.1; O2SAT 92
[2022-12-16 19:05] VITALS: BP 97/61; PULSE 60; RESP 15; TEMP 36.8; O2SAT 98
[2022-12-16] MEDS: Senna/Docusate Sodium 1 Tablet 2 TABLET PO (20:06)
[2022-12-16] MEDS: traZODone 100 MG Tablet PO (20:06)
[2022-12-17] MEDS: Nystatin Powder 15gm Bottle 1 APPLIC TOPICAL ×2 (05:13→20:03)
[2022-12-17 07:10] VITALS: BP 142/76; PULSE 61; RESP 16; TEMP 36.9; O2SAT 92
[2022-12-17] MEDS: Aspirin 81 MG TAB.CHEW PO (07:39)
[2022-12-17] MEDS: DULoxetine Hcl 20 MG Capsule 40 MG PO (07:40)
[2022-12-17] MEDS: Cholecalciferol (VIT D3) 25 MCG TABLET (1,000 UNITS) 50 MCG PO (07:41)
[2022-12-17] MEDS: metFORMIN HCl 500 MG Tablet 250 MG PO ×2 (07:42→16:48)
[2022-12-17] MEDS: Pantoprazole Sodium 40 MG Tablet PO (07:42)
[2022-12-17] MEDS: Magnesium Chloride 64 MG Delay Rel.Tablet 128 MG PO (07:43)
[2022-12-17] MEDS: Senna/Docusate Sodium 1 Tablet 2 TABLET PO ×2 (07:43→20:07)
[2022-12-17] MEDS: Juven (unflavored) Packet 1 PACKET PO ×2 (07:44→16:48)
[2022-12-17] MEDS: Lisinopril 20 MG Tablet PO (07:45)
[2022-12-17] MEDS: Potassium Chloride Oral Tablet 20 MEQ PO (07:45)
[2022-12-17] MEDS: levETIRAcetam 500 MG Tablet 750 MG PO ×2 (07:47→20:05)
[2022-12-17] MEDS: Empagliflozin 10 MG Tablet PO (07:47)
[2022-12-17] MEDS: Carvedilol 6.25 MG Tablet PO ×2 (07:50→20:05)
[2022-12-17] MEDS: 0.9% Saline Lock 10 ML Syringe IV (09:34)
--- NOTE | 2022-12-17 12:11 | PN_ITS ---
Subjective Subjective Afebrile VSS-systolic blood pressure is elevated more often than not however, the diastolics are always normal. Maintaining appropriate oxygen saturation on RA Oral intake is good Weight is stable. Discussed with nursing - no problems that need addressed Reviewed the PT/OT/ST notes Medication list reviewed. Antihypertensives include amlodipine 10 mg daily, carvedilol 6.25 mg twice daily and lisinopril 20 mg daily. Rebeka states her headaches are less frequent and not as intense. She feels more on top of things and less confused. The speech therapist says she did much better today. She still has left-sided neglect but she is not veering to the left and losing her balance like she was last week. She denies chest pain, palpitations, shortness of breath, lightheadedness, nausea/vomiting/abdominal pain, dysuria, constipation and calf pain. Objective Data Objective Data Vital Signs: Vital Signs Temp Pulse Resp BP Pulse Ox O2 Del Method 98.4 F 61 16 142/76 H 92 Room Air 12/17/22 07:10 12/17/22 07:10 12/17/22 07:10 12/17/22 07:10 12/17/22 07:10 12/17/22 07:10 Oxygen Delivery Method Room Air Weight: 180 lb 15.992 oz Body Mass Index (BMI) 32.1 Intake & Output: Intake and Output for Last 24 Hours 12/15/22 12/16/22 12/17/22 23:59 23:59 23:59 Intake Total 1220 / 1220 1400 / 1760 530 / 530 Output Total 550 / 550 1700 / 2500 2675 / 2675 Balance 670 / 670 -300 / -740 -2145 / -2145 Lab / Micro Data 12/13/22 16:30 12/13/22 16:30 Micro: Microbiology 11/20/22 20:50 Stool Stool Occult Blood (PREMA) - Final Physical Exam Const alert and no apparent distress Constitutional Narrative: Seems to be more alert today and not as confused in general conversation. General Appearance: cooperative HEENT Mouth: dry mucous membranes Resp clear to auscultation bilaterally Cardio regular rate and regular rhythm GI normal to inspection, nondistended, normoactive bowel sounds, soft to palpation and non-tender Extremity no calf tenderness Extremity Narrative: She has no pitting edema of the ankles.....the distal LE's/ankles appear swollen but, this is her body habitus. Skin General Skin Exam: no breakdown Rashes: no rashes Wound Narrative: The craniotomy incision is intact with no radha-incisional erythema, no radha- incisional swelling, no dehiscence and no discharge. Psych Psych Narrative: She feels more centered today and not as overwhelmed with noise and people talking to her. She is not tearful. Conversation was appropriate and fluent. She is less wide eyed and euphoric today. She tells me that she is scheduled for surgery with Dr. Jose on the .......I told her I would call and inform Dr. Jose that she will still be on antibiotics for another 6 weeks due to an anaerobe that recently appeared on the cultures done at [facility] on the day of surgery. Appearance: appropriate Attitude: No agitated Mood & Affect: Negative for depressed or anxious Assessment & Plan Assessment/Plan (1) Debility: (2) Osteomyelitis of skull: PLAN: Originally grew MSSA but, recently started growing an anaerobe as well. Cefipime was discontinued last week and she is now on Rocephin per ID at [facility]. (3) Status post craniotomy: (4) Depression: QUALIFIERS: Depression Type: reactive depression Qualified Code(s): F32.9 - Major depressive disorder, single episode, unspecified (5) Cognitive dysfunction: (6) Acute blood loss anemia: (7) Left hemiparesis: (8) Diabetes mellitus, type 2: QUALIFIERS: Diabetes mellitus watermaster insulin use: without watermaster use Diabetes mellitus complication status: without complication Qualified Code(s): E11.9 - Type 2 diabetes mellitus without complications (9) Hypertension: QUALIFIERS: Hypertension type: primary hypertension Qualified Code(s): I10 - Essential (primary) hypertension (10) Left breast mass: QUALIFIERS: Breast mass location: unspecified quadrant Qualified Code(s): N63.20 - Unspecified lump in the left breast, unspecified quadrant (11) Obstructive sleep apnea: PLAN: Plan 1. Continue therapy 2. Plan discharge for , 12/20/2022 to home with home health care for PT/OT/ST/SN/FRANKEL/SW. 3. Will be discharged on Rocephin 2 g IV every [address] Joes's office that the patient is now growing an anaerobe and the antibiotic has been changed to Rocephin for an additional 6 weeks. 5. APS referral at discharge 6. Fax prescriptions to [facility] tomorrow and they will pre-pkg her meds so that neither she nor Deniz will need to set up pill boxes. 7. Weekly lab will be done tomorrow and will forward to ID. 8. I think that she had neurotoxicity due to Cefepime. she has been off cefepime since last Saturday and the confusion and veering to the left with LOB and running into muñoz has resolved. She still has L side neglect. Headaches are less frequent and less severe but, this could be coincidence. Charges/Coding Visit Charges Inpatient E&M: 96525 Subs Hosp L2
[2022-12-17 19:05] VITALS: BP 132/74; PULSE 62; RESP 16; TEMP 36.7; O2SAT 97
[2022-12-17] MEDS: traZODone 100 MG Tablet PO (20:04)
[2022-12-17 21:06] VITALS: O2SAT 97
[2022-12-18] MEDS: Nystatin Powder 15gm Bottle 1 APPLIC TOPICAL (05:51)
[2022-12-18 05:53] LABS: Absolute Lymphocyte Count 2.83 X10^3/uL (0.83-4.51); Absolute Neutrophil Count 1.6 X10^3/uL (2.0-7.7); Basophil# 0.06 X10^3/uL; Basophil% 1.1 % (0-1); Eosinophil# 0.23 X10^3/uL; Eosinophils% 4.4 % (0-5); Hematocrit 32.5 % (37-47); Hemoglobin 10.1 g/dL (12.0-15.0); Lymphocyte # 2.83 X10^3/ul (0.83-4.51); Lymphocyte % 53.7 % (19-41); Mean Corp Hgb Conc 31.1 g/dL (32-36); Mean Corpuscular Hgb 27.5 pg (27.0-32.0); Mean Corpuscular Volume 88.6 fL (81-99); Mean Platelet Vol. 9.9 fl (6.2-12.0); Monocyte# 0.59 X10^3/uL; Monocyte% 11.2 % (0-10); NRBC Flagged by Analyzer 0 % (0-5); Neutrophil # 1.56 X10^3/uL (2.7-7.7); Neutrophil % 29.6 % (47-70); Platelet Count 218 K/mm3 (150-450); RBC Distribution Width CV 13.1 % (11.6-14.6); RBC Distribution Width SD 42.6 fl (35.1-43.9); Red Blood Count 3.67 M/mm3 (4.2-5.4); White Blood Count 5.3 K/mm3 (4.4-11.0)
[2022-12-18 06:23] LABS: ALB/GLOB Ratio 0.8 RATIO (0.9-2.4); AST(SGOT) 12 U/L (15-37); Alanine Aminotransfer ALT/SGPT 21 U/L (13-56); Albumin, Serum 3.1 g/dL (3.2-5.0); Alkaline Phosphatase 52 U/L (45-117); Anion Gap 3 (5-15); BUN 18 mg/dL (7-18); BUN/Creat Ratio 26.4 RATIO (10-20); Calcium,Total 9.5 mg/dL (8.5-10.1); Chloride 108 mmol/L (98-107); Creatinine, Serum 0.68 mg/dL (0.55-1.02); EST Glomerular Filtration Rate 91 mL/min (>60); Est Glom Filt Rate - Afr Amer 110 mL/min (>60); Estimated Creatinine Clearance 42.59 ml/min; Globulin 3.9 g/dL (2.2-4.2); Glucose 111 mg/dL (74-106); Phosphorus 3.9 mg/dL (2.5-4.9); Potassium 3.9 mmol/L (3.5-5.1); Sodium Level 141 mmol/L (136-145)
[2022-12-18 06:36] LABS: CRP < 2.90 mg/L (0.0-3.0)
[2022-12-18 06:53] LABS: Bedside Glucose 105 mg/dL (74-106)
[2022-12-18 07:15] VITALS: BP 115/78; PULSE 65; RESP 18; TEMP 36.7; O2SAT 97
[2022-12-18 07:47] LABS: Erythrocyte Sedimentation Rate 17 mm/hr (0-30)
[2022-12-18] MEDS: Lisinopril 20 MG Tablet PO (08:34)
[2022-12-18] MEDS: Carvedilol 6.25 MG Tablet PO ×2 (08:34→20:47)
[2022-12-18] MEDS: Polyethylene Glycol 3350 17 GM PACKET PO (08:34)
[2022-12-18] MEDS: DULoxetine Hcl 20 MG Capsule 40 MG PO (08:34)
[2022-12-18] MEDS: Juven (unflavored) Packet 1 PACKET PO ×2 (08:34→17:14)
[2022-12-18] MEDS: Aspirin 81 MG TAB.CHEW PO (08:35)
[2022-12-18] MEDS: Senna/Docusate Sodium 1 Tablet 2 TABLET PO ×2 (08:35→20:47)
[2022-12-18] MEDS: metFORMIN HCl 500 MG Tablet 250 MG PO ×2 (08:35→17:14)
[2022-12-18] MEDS: Empagliflozin 10 MG Tablet PO (08:35)
[2022-12-18] MEDS: Magnesium Chloride 64 MG Delay Rel.Tablet 128 MG PO (08:35)
[2022-12-18] MEDS: Potassium Chloride Oral Tablet 20 MEQ PO (08:35)
[2022-12-18] MEDS: Pantoprazole Sodium 40 MG Tablet PO (08:35)
[2022-12-18] MEDS: Cholecalciferol (VIT D3) 25 MCG TABLET (1,000 UNITS) 50 MCG PO (08:35)
[2022-12-18] MEDS: levETIRAcetam 500 MG Tablet 750 MG PO ×2 (08:35→20:45)
--- NOTE | 2022-12-18 09:04 | DCINST_ITS ---
Discharge Instructions Diet Discharge Diet: - (2,000 calorie. carb controlled, low fat and low salt.) Activity Discharge Activity: May Not Drive, May Shower and Use Walker Weight Bearing Status: Full weight bearing Keep extremity elevated above heart level: Legs Dressing / Incision Call your doctor if your incision/area has: Increased Pain/ Swelling, Increased Redness, Foul Smelling Discharge and Swelling at the incision site Call your doctor if you observe: Fever of 101 or Higher, Shortness of breath, Dizziness, Fainting spells, Swelling in the ankles, Chest pain, Increased palpitations (irregular heartbeat), Calf discomfort, Uncontrolled pain and - (STROKE symptoms: facial droop, slurred speech, inability to get words out, weakness on 1 side of the body and not the other, numbness on 1 side of the body and not the other, inability to maintain your balance sitting or standing, vertigo. ) Suture Line Care: Avoid Pulling/Pushing and Avoid Pinching/Bending Cleanse incision/area with: Soap & Water and - (Do not soak the incision in water. No dressing is needed on the cranial incision. ) Follow Up Care Please Follow Up With: Flaquita Fink MD Test Results: Test results from this visit will be discussed in further detail at your follow- up appointment, if applicable. Pending Tests Upon Discharge: none Discharge Plan Admission Admit Date/Time: 11/18/22 11:15 Primary Reason for Your Visit: Debiiity due to osteomyelitis of the skull with craniotomy Attending Provider: Ramona Padilla Primary Care Provider: Flaquita Fink Consulting Providers: Hussain Fleming Instructions Additional Instructions / Restrictions: 1. We have had some ups and downs this admission. I think the headaches, confusion and increased left side neglect and veering off to the left with ambulation were due to the Cefepime, which is the first antibiotic you were on. One of the side effects of this drug is neurotoxicity (trouble with brain function). The confusion, headaches, left side neglect and trouble ambulating have all improved or resolved with discontinuation of the Cefepime. You are now on a antibiotic called Rocephin, also called ceftriaxone. You will be taking this antibiotic twice a day for a total of 6 weeks. The reason you are on another antibiotic is the delayed cultures that were done at [facility] at the time of your surgery are now growing another bacteria which is an anaerobe. Anaerobes are bacteria that grow without oxygen. They generally arise in the intestine or the mouth. Dr. Jose can not put the skull back together until the infection has completely resolved and the Infectious disease doctor, Dr. Linares, has told them it is OK to proceed with the surgery. 2. The skull incision looks very good. There is no redness, no discharge and no swelling around the incision. PLEASE wear the helmet ANYTIME you are not in bed or in a chair to protect your brain since you have a large part of the skull removed. 3. I feel much more comfortable sending you home now that you are less confused and the walking is much better with no major loss of balance now. I know that your friends are going to be helping you and Edniz. You have great friends. 4. You will be getting home health care and this will include a nurse to check that the antibiotics are being given properly. 5. You will continue to get weekly lab as long as you are on the antibiotic. The home health care people will draw the blood from you and send it to the lab and Dr. Linares will get the results. Antibiotics can cause diarrhea, vaginal yeast infections and thrush so, if you have burning with urination, vaginal itching or discharge, sore mouth, painful swallowing or more than 2-3 BM's a day let Dr. Fink or the home health nurse know VIVEK. 6. You are more than likely going to need additional time in acute rehab after the skull is fixed. We will be happy to have you on rehab again. 7. Your prescriptions will be filled at [facility]'s pharmacy from now on and they will pre-package them for you so that you and Deniz do not have to fill the pill boxes. They will even deliver to your house if needed. I recommend that Deniz have them do his medications as well. 8. IF you have ANY questions or I can help you in any way PLEASE CALL ME! 9. You still need to have that breast biopsy done so please get it rescheduled. If you want Barrie or one of the nurses to reschedule this for you all you have to do is give them the name of the doctor who will be doing the biopsy. OFFICE: [phone] CELL: [phone] Discharge Orders/Prescriptions Prescriptions: New lisinopril 20 mg Tablet 20 mg PO DAILY Qty: 30 0RF trazodone 100 mg Tablet 100 mg PO QHS Qty: 30 0RF duloxetine 20 mg Capsule,Delayed Release(Dr/Ec) 40 mg PO DAILY Qty: 60 0RF levetiracetam 500 mg Tablet 750 mg PO BID Qty: 90 0RF hydrocodone-acetaminophen 5-325 mg Tablet 1 tab PO Q4H PRN PRN (Reason: Pain Score 1-10) 7 Days Qty: 40 0RF sennosides-docusate sodium [Stool Softener-Stimulant Laxat] 8.6-50 mg Tablet 2 tab PO BID Qty: 120 0RF acidophilus-pectin, citrus 25 million cell -100 mg Tablet 1 tab PO BID Qty: 60 0RF Continued aspirin 81 mg Tablet 81 mg PO DAILY metformin 500 mg tablet 250 mg PO BIDCM Qty: 30 0RF carvedilol [Coreg] 6.25 mg Tablet 6.25 mg PO BID Qty: 60 0RF pantoprazole 40 mg tablet,delayed release (DR/EC) 40 mg PO DAILY Qty: 30 0RF rosuvastatin [Crestor] 20 MG tablet 10 mg PO QHS Qty: 30 0RF Mag 64 64 mg tablet,delayed release (DR/EC) 128 mg PO DAILY Qty: 60 0RF potassium chloride 20 mEq tablet extended release 20 meq PO DAILY Qty: 30 0RF Jardiance 10 mg tablet 10 mg PO DAILY@0800 Qty: 30 0RF Changed cholecalciferol (vitamin D3) 50 mcg (2,000 unit) Tablet 50 mcg PO QWEEK Qty: 4 0RF Discontinued tamsulosin 0.4 mg Capsule 0.4 mg PO DAILY Qty: 30 0RF amlodipine 10 mg Tablet 10 mg PO DAILY Qty: 30 0RF cefepime 2 gram Recon Soln 2 g IV Q8H trazodone 50 mg tablet 50 mg PO QHS tramadol 50 mg tablet 50 mg PO Q8H PRN PRN (Reason: Pain Score 1-10) lisinopril 10 mg tablet 20 mg PO DAILY acetaminophen 500 mg tablet 1,000 mg PO Q8 bupropion HCl 75 mg tablet 75 mg PO BID nystatin [Nyamyc] 100,000 unit/gram powder 1 applic topical TID Protocol: *Topical Application Instructions APPLICATION INSTRUCTIONS: Under bilateral breasts duloxetine 20 mg capsule,delayed release(DR/EC) 20 mg PO DAILY pregabalin 75 mg capsule 75 mg PO QHS Glucerna 1.2 Noe 0.06-1.2 gram-kcal/mL liquid 120 ml PO 4X/DAY Referrals / Follow Up: Linares, Infection Control [Other] (office will call you for another phone visit when you are close to stopping antibiotics around 01/24/23 ) Susy, Neuro [Other] - 02/11/23 1:00 pm Flaquita Fink MD [Primary Care Provider] - 01/14/23 2:20 pm (Will be with Dr. Fink's PA) Disposition Disposition (needs filled in before D/C Order can be placed): Home Health Service
[2022-12-18] MEDS: 0.9% Saline Lock 10 ML Syringe IV ×2 (12:05→20:48)
--- NOTE | 2022-12-18 15:19 | CASEMGMT ---
Social Work Referral phoned to Rick at [facility] APS for concerns with pt and functioning well at home. Both lack ability to complete meds and finances. Nadia Reynolds, TAX AUDITOR RECEIVER
[2022-12-18 16:56] LABS: Bedside Glucose 164 mg/dL (74-106)
[2022-12-18 19:33] VITALS: BP 129/74; PULSE 61; RESP 18; TEMP 36.8; O2SAT 99
[2022-12-18] MEDS: HYDROcodone Bitartrate/Apap 5/325 Tablet PO (20:42)
[2022-12-18] MEDS: traZODone 100 MG Tablet PO (20:45)
[2022-12-19] MEDS: Nystatin Powder 15gm Bottle 1 APPLIC TOPICAL ×2 (06:22→20:29)
[2022-12-19] MEDS: Juven (unflavored) Packet 1 PACKET PO ×2 (07:34→17:25)
[2022-12-19] MEDS: levETIRAcetam 500 MG Tablet 750 MG PO ×2 (07:34→20:30)
[2022-12-19] MEDS: DULoxetine Hcl 20 MG Capsule 40 MG PO (07:35)
[2022-12-19] MEDS: Magnesium Chloride 64 MG Delay Rel.Tablet 128 MG PO (07:35)
[2022-12-19] MEDS: Lisinopril 20 MG Tablet PO (07:35)
[2022-12-19] MEDS: Carvedilol 6.25 MG Tablet PO ×2 (07:35→20:30)
[2022-12-19] MEDS: Empagliflozin 10 MG Tablet PO (07:35)
[2022-12-19] MEDS: Pantoprazole Sodium 40 MG Tablet PO (07:35)
[2022-12-19] MEDS: Cholecalciferol (VIT D3) 25 MCG TABLET (1,000 UNITS) 50 MCG PO (07:35)
[2022-12-19] MEDS: metFORMIN HCl 500 MG Tablet 250 MG PO ×2 (07:35→17:25)
[2022-12-19] MEDS: HYDROcodone Bitartrate/Apap 5/325 Tablet PO ×2 (07:36→19:23)
[2022-12-19] MEDS: Potassium Chloride Oral Tablet 20 MEQ PO (07:36)
[2022-12-19] MEDS: Aspirin 81 MG TAB.CHEW PO (07:36)
[2022-12-19 07:47] VITALS: BP 125/72; PULSE 58; RESP 15; TEMP 36.4; O2SAT 98
[2022-12-19] MEDS: 0.9% Saline Lock 10 ML Syringe IV ×2 (10:13→21:20)
--- NOTE | 2022-12-19 15:31 | DS.PCM_ITS ---
Providers Date of Admission: 11/18/22 Date of Discharge: 12/20/22 Primary Care Physician: Dr. Flaquita Fink MD Consultations 11/28/22 13:01 Consult: Infectious Disease Routine Consulting Provider: Hussain Fleming Reason for Consult: osteo of skull - need to change antibiotic due to adverse SE EMERGENT Consult: No MD Notified: Yes Date Notified: 11/28/22 Time Notified: 13:01 Method of Notification: Text Reason For Visit: CRANIOTOMY Diagnosis Discharge Diagnosis (1) Debility: Status: Acute Code(s): R53.81 - Other malaise (2) Osteomyelitis of skull: Status: Acute Code(s): M86.9 - Osteomyelitis, unspecified Plan: Originally grew MSSA but, recently started growing an anaerobe as well. Cefipime was discontinued last week and she is now on Rocephin per ID at [facility]. (3) Status post craniotomy: Status: Resolved Code(s): Z98.890 - Other specified postprocedural states Plan: Bone flap was left out and after infection has resolved she will have the skull closed with a prosthetic piece of bone. This is her second craniotomy. The first was following a hemorrhagic CVA to decompress the brain. She will need a third to close the skull. (4) Depression: Status: Chronic Code(s): F32.A - Depression, unspecified Qualifiers: Depression Type: reactive depression Qualified Code(s): F32.9 - Major depressive disorder, single episode, unspecified Plan: Not currently having any sx of depression. Stable on Duloxetine. (5) Cognitive dysfunction: Status: Chronic Code(s): F09 - Unspecified mental disorder due to known physiological condition Plan: Got significantly better after Cefepime was discontinued. (6) Acute blood loss anemia: Status: Acute Code(s): D62 - Acute posthemorrhagic anemia Plan: Stable at 10.1 at discharge. Chronic infection/inflammation may be contributing to the anemia. (7) Left hemiparesis: Status: Acute Code(s): G81.94 - Hemiplegia, unspecified affecting left nondominant side Plan: This is related to the stroke she had in July of 2022. It got much worse while on Cefepime and improved with discontinuation of Cefepime. 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 (9) Hypertension: Status: Chronic Code(s): I10 - Essential (primary) hypertension Qualifiers: Hypertension type: primary hypertension Qualified Code(s): I10 - Essential (primary) hypertension Plan: Controlled. (10) Left breast mass: Status: Acute Code(s): N63.20 - Unspecified lump in the left breast, unspecified quadrant Qualifiers: Breast mass location: unspecified quadrant Qualified Code(s): N63.20 - Unspecified lump in the left breast, unspecified quadrant Plan: She is to have a breast biopsy with Dr. Ramona Yuan. This has already been postponed a couple times due to being in the hospital on the day the procedure was scheduled. (11) Obstructive sleep apnea: Status: Chronic Code(s): G47.33 - Obstructive sleep apnea (adult) (pediatric) Plan: She will follow up with Dr. Mahajan. I would also like her to see Dr. Mahajan for the ABN EEG and Left side partial motor seizures she had that started while she was on Cefepime. They could have been associated with Cefepime and she may be able to come off Keppra going forward if Dr. Mahajan agrees. (12) Neurotoxicity: Status: Acute Code(s): R29.90 - Unspecified symptoms and signs involving the nervous system Plan: This is likely due to Cefepime. She had increased confusion, severe headaches, increased weakness on the left side, increased L side neglect, increased difficulty with ambulation (veering widely L into the wall when ambulating) and Left side partial motor seizures. She was started on Keppra for the seizures and she is having no seizures at the time of DC on Keppra 750 mg BID. The headaches are much better and she is ambulating at SBA with a FWW with no LOB. Minimal Left side neglect and the confusion is significantly better off Cefepime. (13) Partial motor seizures: Status: Acute Code(s): G40.109 - Localization-related (focal) (partial) symptomatic epilepsy and epil eptic syndromes with simple partial seizures, not intractable, without status epilepticus Plan: She had no seizures after the craniotomy in July when she had the stroke and first craniotomy. The seizures never generalized and were limited to the LUE> LLE. EEG was abnormal. They could be due to previous stroke, infection or to Cefepime or to the combined effects of all these conditions. She will follow up with Dr. Mahajan, whom she already sees for LUKAS, to manage the epileptic drugs. (14) Anaerobic bacterial infection: Status: Acute Code(s): A49.8 - Other bacterial infections of unspecified site Plan: This grew very late on cultures that were done at [facility] at the time of the cranio frank. She was transitioned to 2 GM Rocephin Q 12H on 12/13/[address] Linares, infectious disease in [place], for total of 6 weeks. The Rocephin is to be given IVP by her with the supervision of friends Vincent and Pauline and the [facility] nurse. (15) Malnutrition: Status: Chronic Code(s): E46 - Unspecified protein-calorie malnutrition Qualifiers: Malnutrition type: protein-calorie malnutrition Protein-calorie malnutrition severity: severe Qualified Code(s): E43 - Unspecified severe protein-calorie malnutrition Plan 1. discharge home with [facility] 2. Continue Rocephin 2 GM IV Q 12H at home. and friends to administer. 3. Follow up with Dr. Jose post DC 4. Follow up with ID after DC 5. Weekly CBC with DIFF, BMP, ESR and CRP while on Rocephin 6. I made Dr. Jose's office ([facility]) aware of the change in the antibiotics and the need for a 6 week course. 7. Follow up with Dr. Fink post DC. Medications at Discharge Home Medications aspirin 81 mg tablet 81 mg PO DAILY heart 11/15/22 acidophilus 25 million cell-pectin, citrus 100 mg tablet 1 tab PO BID #60 tabs 12/18/22 carvedilol 6.25 mg tablet (Coreg) 6.25 mg PO BID BP #60 tabs 12/18/22 cholecalciferol (vitamin D3) 50 mcg (2,000 unit) tablet 50 mcg PO QWEEK vitamin #4 tabs 12/18/22 duloxetine 20 mg capsule,delayed release 40 mg (2 x 20 mg) PO DAILY #60 caps 12/18/22 empagliflozin 10 mg tablet (Jardiance) 10 mg PO DAILY@0800 dm #30 tabs 12/18/22 hydrocodone-acetaminophen 5-325mg 5mg-325mg 1 tab PO Q4H PRN PRN Pain Score 1-10 7 days #40 tabs 12/18/22 levetiracetam 500 mg tablet 750 mg (1.5 x 500 mg) PO BID #90 tabs 12/18/22 lisinopril 20 mg tablet 20 mg PO DAILY #30 tabs 12/18/22 magnesium chloride 64 mg (magnesium chloride) tablet,delayed release (Mag 64) 128 mg (2 x 64 mg) PO DAILY vitamin #60 tabs 12/18/22 metformin 500 mg tablet 250 mg (1/2 x 500 mg) PO BIDCM dm #30 tabs 12/18/22 pantoprazole 40 mg tablet,delayed release 40 mg PO DAILY gerd #30 tabs 12/18/22 potassium chloride 20 mEq tablet,extended release 20 meq PO DAILY supp #30 tabs 12/18/22 rosuvastatin 20 mg tablet (Crestor) 10 mg (1/2 x 20 mg) PO QHS Cholestrol #30 tabs 12/18/22 sennosides 8.6 mg-docusate sodium 50 mg tablet (Stool Softener-Stimulant Laxative) 2 tab PO BID #120 tabs 12/18/22 trazodone 100 mg tablet 100 mg PO QHS #30 tabs 12/18/22 Hospital Course Operations - (Craniectomy with removal of a large section of bone from the R side of the skull due to osteomyelitis in October of 2022. ) Procedures Electroencephalogram (The EEG was abnormal due to background voltage asymmetry with organized, high amplitude, sharply contoured slowing seen over the right hemisphere, consistent with a breach rhythm from recent craniotomy. Additionally, there was intermittent right frontal sharp waves and rare generalized spike/wave d) Summary of Care Provided Minutes Spent on Discharge: 60 Hospital Course: HARSHAL AKERS, is a 67 YO F well known to me from an admission to [facility] acute rehab in July of 2022 following a craniectomy for non-traumatic hemorrhagic CVA. 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 The biopsy has been rescheduled a few times. The surgeon who will be doing the biopsy is Dr. Ramona Yuan. On 09/07/22 she had sudden numbness in the L hand that lasted about 45 minutes. She presented to the ED and had a CT of the brain that showed a NEW pneumocephalus. The ED doc discussed the case with neurosurgery at [facility] and they were not concerned about the Pneumocephalus because of the recent craniectomy. She was admitted to the hospitalist service at [facility] and had an MRI and MRA of the head. The MRA showed only mild plaque. MRI showed right cerebral postsurgical subdural hematoma measuring 3.8 mm with no midline shift. There was diffuse right cerebral subarachnoid blood and a right temporal parietal intracerebral hemorrhage was noted. There was mild overlying edema. Overall the MRI appeared better than it did prior to the craniotomy in July of 2022. SOC was consulted and was unsure how the left hand numbness, which had completely resolved, was related to the MRI. They did not feel any acute intervention was needed or changes in her medical regimen. She was discharged home. Following DC she was seen at [facility] again, timing is not clear, and was treated for osteomyelitis of the skull with a craniotomy and IV Cefepime. While she was on rehab in July and early August she had cellulitis of the incision and the culture grew MSSA. She was treated with Keflex for 7 days and the infection resolved. Following DC from [facility] following craniotomy/excision of a large segment of the R skull she went home (rather than to rehab or an SNF). Her Deniz, who has dementia, was administering the Cefepime. She presented to the ED at [facility] once again on 11/15/22 after a fall at home. She was admitted to the hospitalist service. While in the hospital she was diagnosed with severe malnutrition by the the correction worker. She was seen by PT/OT and a recommendation for acute rehab was made. She was very weak and having considerable trouble ambulating. She lives with her who is not well and has cognitive dysfunction and he was unable to care for her. Peggy herself has memory difficulties, left side neglect and persistent weakness on the left side. She was transferred to the acute inpt rehab unit on 11/18/22 for 3 hours of therapy daily to restore function/ independence at or near her level prior to the initial hemorrhagic stroke in July. Upon arrival to rehab Peggy was very weak. She had left side neglect and confusion. She was c/o severe FRANKEL's almost every day. Shortly after admission she started to have tremors of the LUE > LLE and she had no control over this. They would start and stop on their own. These appeared to be partial motor seizures. They never generalized and she never lost consciousness. An EEG was obtained. The EEG was abnormal due to background voltage asymmetry with disorganized, high amplitude, sharply contoured slowing seen over the right hemisphere. There additionally were intermittent right frontal sharp waves and rare generalized spike/wave discharges consistent with an underlying right hemispheric structural abnormality. Although there were no electrographic seizures noted the sharp and spike wave discharges were thought to be consistent with a lowered seizure threshold. At that time she was on Maxipime, Ultram and Wellbutrin. Wellbutrin and tramadol were discontinued and cefepime was continu ed. She was started on Keppra 500 mg p.o. twice daily and there was a decrease in the frequency of the seizures. She continued to have focal motor seizures, worst in the left upper extremity. Keppra was increased to 750 mg twice daily and the frequency decreased to rare. ID was consulted to see if the Cefepime could be discontinued and another antibiotic with no neurotoxic SE's could be started. The ID doctor did not feel the seizures, FRANKEL's, confusion were due to Cefepime and recommended continuing Cefepime. She went on to develop worsening left side neglect and she was deviating with ambulation to the left so badly than she was running into muñoz and doorways without someone at [facility] to correct direction. When Cefepime was discontinued she became less confused, had no FRANKEL's, was ambulating without any deviation in gait at A and the focal motor seizures completely stopped. In my opinion she had neurotoxicity due to Cefepime. The week prior to DC we received a phone call from her ID doctor who told us that the cultures that were done at [facility] had started to grow an anaerobe. Cefepime was discontinued and she was started on Rocephin 2 GM IV Q 12 H. She was to receive 6 weeks of the Rocephin. We notified Dr. Jose's office of the change in the antibiotic and the anaerobic growth. Prior to DC Peggy's Deniz and 2 of her friends came in for family training and were instructed in how to give the antibiotic IVP Q 12H. Peggy has a PICC. Therapy was very difficult while she was on Cefepime due to poor memory, confusion, severe left side neglect and wide deviations to the left with ambulation. We were all very concerned about Peggy going home with her Deniz, who has dementia. The ST worked with both of them to set up pill boxes and neither one of them was able to do this with no errors. We contacted a pharmacy in [place] to fill all RX's and put in blister packs so they did not have to worry about filling pill boxes. After a few days off the Cefepime Peggy's memory improved significantly and she could ambulate in a straight line without deviating to the left. She had no FRANKEL and no focal motor seizures. Our level of concern decreased significantly. I elected to keep her on the Kera. she follows up with Dr. Yobani Mahajan for LUKAS and she will also follow up with him for treatment of focal motor seizures. At the time of DC he was supervision/set up for eating and grooming. She was standby assist for bathing, upper body dressing, toileting, toilet transfer and tub/shower transfer. She required only minimal assistance with lower body dressing. She was able to do 12 stands with push-up using her right extremity only at contact-guard assist and 30 seconds. She did the tug test and 17.29 seconds with a front wheeled walker at contact-guard assist. She had a ascended/descended 5 steps including three 4 inch steps and two 6 inch steps with a right handrail at contact-guard assist for 3 sets. She was ambulating up to 430 feet on various surfaces and busy hallways with veering to the left only at the end of ambulation. She bumped into only 1 object. She was discharged home with bryanna at home health care that would see her on 12/21/2022 at 10 AM. She had follow-up appointment scheduled for her by the nursing staff to follow- up with Dr. Jose, Dr. Linares from [place] and her primary care doctor, Dr. Fink. Physical Exam Const oriented x3 and no apparent distress Constitutional Narrative: She is much more alert at discharge than she was 1 week ago when the cefepime was discontinued. Level of alertness and memory have improved significantly over the past week. She is no longer severely deviating to the left when ambulating, she denies headaches and she is no longer having focal motor s eizures of the left upper extremity. General Appearance: cooperative, well kempt and well developed HEENT moist oral mucous membranes Eyes PERRL, EOMs intact bilaterally, conjunctivae normal and no scleral icterus Eyes Narrative: No mattering of the eyelashes and no discharge from the eyes. Neck supple, No nodes and no carotid bruits Chest Chest: symmetrical chest wall rise Resp normal respiratory effort, normal air movement, no use of accessory muscles and clear to auscultation bilaterally Effort and Inspection: Negative for tachypneic or labored Cardio regular rate, regular rhythm, S1 normal heart sound, S2 normal heart sound, no murmurs, no rub and no gallops Cardio Narrative: No ectopy GI normal to inspection, nondistended, normoactive bowel sounds, soft to palpation, non-tender and non-distended GI Narrative: No guarding with palpation. no CVA tenderness Extremity no calf tenderness and no pedal edema Skin General Skin Exam: no breakdown Rashes: no rashes Wound Narrative: The craniotomy incision is intact with no radha-incisional erythema, no ardha- incisional swelling, no dehiscence and no discharge. Neuro oriented x3, CN's II-XII intact bilaterally and moves all extremities Coordination / Balance: [id number] test normal and [id number] test normal Motor Exam: general weakness Psych cooperative, affect normal, speech normal, activity/motor behavior normal, denies hallucinations, denies homicidal ideation and denies suicidal ideation Activity / Motor Behavior: appropriate eye contact Mood & Affect: Negative for depressed or anxious Weight / BMI Weight Weight: 180 lb 15.992 oz Body Mass Index (BMI) 32.1 ABG / Lab / Microbiology Data 12/18/22 05:46 12/18/22 05:46 Laboratory: Laboratory Results - last 24 hr 12/18/22 16:25: POC Glucose 164 H Microbiology: Microbiology 11/20/22 20:50 Stool Stool Occult Blood (PREMA) - Final D/C Instructions Discharge Diet: - (2,000 calorie. carb controlled, low fat and low salt.) Weight Bearing Status: Full weight bearing Keep extremity elevated above heart level: Legs Call your doctor if your incision/area has: Increased Pain/ Swelling, Increased Redness, Foul Smelling Discharge and Swelling at the incision site Call your doctor if you observe: Fever of 101 or Higher, Shortness of breath, Dizziness, Fainting spells, Swelling in the ankles, Chest pain, Increased palpitations (irregular heartbeat), Calf discomfort, Uncontrolled pain and - (STROKE symptoms: facial droop, slurred speech, inability to get words out, weakness on 1 side of the body and not the other, numbness on 1 side of the body and not the other, inability to maintain your balance sitting or standing, vertigo. ) Suture Line Care: Avoid Pulling/Pushing and Avoid Pinching/Bending Cleanse incision/area with: Soap & Water and - (Do not soak the incision in water. No dressing is needed on the cranial incision. ) Pending Tests Upon Discharge: none Please Follow Up With: Flaquita Fink MD Meaningful Use Info Meaningful Use Diagnoses (Choose all that apply): None applicable Discharge Plan Admission Admit Date/Time: 11/18/22 11:15 Primary Reason for Your Visit: Debiiity due to osteomyelitis of the skull with craniotomy Attending Provider: Ramona Padilla Primary Care Provider: Flaquita Fink Consulting Providers: Hussain Fleming Instructions Additional Instructions / Restrictions: 1. We have had some ups and downs this admission. I think the headaches, confusion and increased left side neglect and veering off to the left with ambulation were due to the Cefepime, which is the first antibiotic you were on. One of the side effects of this drug is neurotoxicity (trouble with brain function). The confusion, headaches, left side neglect and trouble ambulating have all improved or resolved with discontinuation of the Cefepime. You are now on a antibiotic called Rocephin, also called ceftriaxone. You will be taking this antibiotic twice a day for a total of 6 weeks. The reason you are on another antibiotic is the delayed cultures that were done at [facility] at the time of your surgery are now growing another bacteria which is an anaerobe. Anaerobes are bacteria that grow without oxygen. They generally arise in the intestine or the mouth. Dr. Jose can not put the skull back together until the infection has completely resolved and the Infectious disease doctor, Dr. Linares, has told them it is OK to proceed with the surgery. 2. The skull incision looks very good. There is no redness, no discharge and no swelling around the incision. PLEASE wear the helmet ANYTIME you are not in bed or in a chair to protect your brain since you have a large part of the skull removed. 3. I feel much more comfortable sending you home now that you are less confused and the walking is much better with no major loss of balance now. I know that your friends are going to be helping you and Deniz. You have great friends. 4. You will be getting home health care and this will include a nurse to check that the antibiotics are being given properly. 5. You will continue to get weekly lab as long as you are on the antibiotic. The home health care people will draw the blood from you and send it to the lab and Dr. Linares will get the results. Antibiotics can cause diarrhea, vaginal yeast infections and thrush so, if you have burning with urination, vaginal itching or discharge, sore mouth, painful swallowing or more than 2-3 BM's a day let Dr. Fink or the home health nurse know VIVEK. 6. You are more than likely going to need additional time in acute rehab after the skull is fixed. We will be happy to have you on rehab again. 7. Your prescriptions will be filled at [facility]'s pharmacy from now on and they will pre-package them for you so that you and Deniz do not have to fill the pill boxes. They will even deliver to your house if needed. I recommend that Deniz have them do his medications as well. 8. IF you have ANY questions or I can help you in any way PLEASE CALL ME! 9. You still need to have that breast biopsy done so please get it rescheduled. If you want Barrie or one of the nurses to reschedule this for you all you have to do is give them the name of the doctor who will be doing the biopsy. OFFICE: [phone] CELL: [phone] Discharge Orders/Prescriptions Prescriptions: New lisinopril 20 mg Tablet 20 mg PO DAILY Qty: 30 0RF trazodone 100 mg Tablet 100 mg PO QHS Qty: 30 0RF duloxetine 20 mg Capsule,Delayed Release(Dr/Ec) 40 mg PO DAILY Qty: 60 0RF levetiracetam 500 mg Tablet 750 mg PO BID Qty: 90 0RF hydrocodone-acetaminophen 5-325 mg Tablet 1 tab PO Q4H PRN PRN (Reason: Pain Score 1-10) 7 Days Qty: 40 0RF sennosides-docusate sodium [Stool Softener-Stimulant Laxat] 8.6-50 mg Tablet 2 tab PO BID Qty: 120 0RF acidophilus-pectin, citrus 25 million cell -100 mg Tablet 1 tab PO BID Qty: 60 0RF Continued aspirin 81 mg Tablet 81 mg PO DAILY metformin 500 mg tablet 250 mg PO BIDCM Qty: 30 0RF carvedilol [Coreg] 6.25 mg Tablet 6.25 mg PO BID Qty: 60 0RF pantoprazole 40 mg tablet,delayed release (DR/EC) 40 mg PO DAILY Qty: 30 0RF rosuvastatin [Crestor] 20 MG tablet 10 mg PO QHS Qty: 30 0RF Mag 64 64 mg tablet,delayed release (DR/EC) 128 mg PO DAILY Qty: 60 0RF potassium chloride 20 mEq tablet extended release 20 meq PO DAILY Qty: 30 0RF Jardiance 10 mg tablet 10 mg PO DAILY@0800 Qty: 30 0RF Changed cholecalciferol (vitamin D3) 50 mcg (2,000 unit) Tablet 50 mcg PO QWEEK Qty: 4 0RF Discontinued tamsulosin 0.4 mg Capsule 0.4 mg PO DAILY Qty: 30 0RF amlodipine 10 mg Tablet 10 mg PO DAILY Qty: 30 0RF cefepime 2 gram Recon Soln 2 g IV Q8H trazodone 50 mg tablet 50 mg PO QHS tramadol 50 mg tablet 50 mg PO Q8H PRN PRN (Reason: Pain Score 1-10) lisinopril 10 mg tablet 20 mg PO DAILY acetaminophen 500 mg tablet 1,000 mg PO Q8 bupropion HCl 75 mg tablet 75 mg PO BID nystatin [Nyamyc] 100,000 unit/gram powder 1 applic topical TID Protocol: *Topical Application Instructions APPLICATION INSTRUCTIONS: Under bilateral breasts duloxetine 20 mg capsule,delayed release(DR/EC) 20 mg PO DAILY pregabalin 75 mg capsule 75 mg PO QHS Glucerna 1.2 Noe 0.06-1.2 gram-kcal/mL liquid 120 ml PO 4X/DAY Referrals / Follow Up: Linares, Infection Control [Other] (office will call you for another phone visit when you are close to stopping antibiotics around 01/24/23 ) Erendira Jain [Other] - 02/11/23 1:00 pm Yobani Mahajan [Other] - 12/26/22 12:30 pm (New Seizure Disorder) Ramona Yuan [Other] (Call office to make an appointment for Breast Biopsy ) Mack Martin MD [Med Staff - Active Staff] - 12/25/22 3:30 am Flaquita Fink MD [Primary Care Provider] - 01/14/23 2:20 pm (Will be with Dr. Fink's PA) Disposition Disposition (needs filled in before D/C Order can be placed): Home Health Service Charges/Coding Visit Charges Inpatient E&M: 49494 Disch Hosp >30min
--- NOTE | 2022-12-19 16:10 | CASEMGMT ---
Social Work SW received message in [facility] from [facility] confirming DC date and teachable caregiver for IVs. SW answered questions. However, [facility] stated that it was noted the has cognitive dysfunction but he also the primary caregiver, and their team no longer is comfortable accepting referral. SW attempted to provide further reassurance that can complete IVs, but [facility] denied. SW placed several more referrals to skilled [facility] agencies via [facility]. Will continue to follow. Nadia Reynolds, NURSE INFORMATICIST CHUTE OPERATOR
[2022-12-19 18:57] VITALS: BP 116/62; PULSE 59; RESP 16; TEMP 36.7; O2SAT 96
[2022-12-19] MEDS: traZODone 100 MG Tablet PO (20:32)
[2022-12-19] MEDS: Senna/Docusate Sodium 1 Tablet 2 TABLET PO (20:32)
[2022-12-19 20:46] VITALS: PULSE 63; RESP 16
[2022-12-19] MEDS: Rosuvastatin Calcium 5 MG Tablet 10 MG PO (20:54)
[2022-12-20] MEDS: Magnesium Chloride 64 MG Delay Rel.Tablet 128 MG PO (08:25)
[2022-12-20] MEDS: Juven (unflavored) Packet 1 PACKET PO ×2 (08:25→17:29)
[2022-12-20] MEDS: Senna/Docusate Sodium 1 Tablet 2 TABLET PO ×2 (08:25→21:02)
[2022-12-20] MEDS: Lisinopril 20 MG Tablet PO (08:25)
[2022-12-20] MEDS: Cholecalciferol (VIT D3) 25 MCG TABLET (1,000 UNITS) 50 MCG PO (08:25)
[2022-12-20] MEDS: metFORMIN HCl 500 MG Tablet 250 MG PO ×2 (08:26→17:29)
[2022-12-20] MEDS: levETIRAcetam 500 MG Tablet 750 MG PO ×2 (08:26→21:03)
[2022-12-20] MEDS: Carvedilol 6.25 MG Tablet PO ×2 (08:26→21:03)
[2022-12-20] MEDS: Pantoprazole Sodium 40 MG Tablet PO (08:26)
[2022-12-20] MEDS: DULoxetine Hcl 20 MG Capsule 40 MG PO (08:26)
[2022-12-20] MEDS: Empagliflozin 10 MG Tablet PO (08:26)
[2022-12-20] MEDS: Aspirin 81 MG TAB.CHEW PO (08:26)
[2022-12-20] MEDS: Potassium Chloride Oral Tablet 20 MEQ PO (08:27)
[2022-12-20] MEDS: 0.9% Saline Lock 10 ML Syringe IV ×2 (08:37→22:10)
[2022-12-20 09:15] VITALS: BP 119/74; PULSE 58; RESP 16; TEMP 36; O2SAT 97
--- NOTE | 2022-12-20 09:39 | CASEMGMT ---
Social Work This social insurance analyst collaborating with nursing staff on discharge needs. This social insurance analyst communicating to nursing that per [facility], [facility] is declining to accept patient due to not having a teachable caregiver in the home. Nursing informing this social insurance analyst that multiple friends have been taught on how to administer the I.V. care, including a prior nurse. Nursing reports to feel that patient has needed support for I.V. care in the home due to there being other teachable caregivers outside of the spouse. This social insurance analyst reaching back out to [facility] via [facility] to clarify that there are teachable caregivers in the home and identified patient friends as mentioned above. No other home health company has responded to referral request. Will continue to follow. Proposed discharge date: 12/21/2031 PLAN: Home with spouse with [facility]. TOBIN Alegria
--- NOTE | 2022-12-20 10:30 | CASEMGMT ---
Social Work This director of social work reaching back out to [facility] to update that there is a teachable caregiver in the home. Lima from [facility] will look over clinicals again and get back to this director of social work. Will continue to follow TOBIN Alegria
--- NOTE | 2022-12-20 11:23 | CASEMGMT ---
Social Work Telephone call to patient spouse, Luan, This adoption social worker communicating that [facility] initially denied patient and that this adoption social worker is working on having case review again with updated information. This adoption social worker communicating that discharge is now on hold due to not having a safe discharge plan in place. Luan voiced understanding. This adoption social worker communicated above information to patients, patient voiced understanding. Medical team aware that discharge is currently on hold. Proposed discharge date: 12/20/2022 Social Work to continue to follow. Janneth OBRIEN, TOBIN
--- NOTE | 2022-12-20 14:29 | CASEMGMT ---
[facility]. Telephone call from [facility], Thad. After reviewing the case further, they are able to accept with start of care to be 12/21/2022 @ 10am. This social service agency director collaborating with [facility] and medical team. Discharge date changed to 12/21/2022 prior to 10am to allow for [facility] to have time to deliver the medication for the AM administration/teaching with [facility]. This social service agency director updated patient and patient spouse on above information. Patient and patient spouse agreeable to discharge date change. Patient spouse plans to brain picker patient no later than 9am on 12/21/2022. Proposed discharge date: 12/21/2022 PLAN: Home with spouse and home health care. Janneth OBRIEN, TOBIN
[2022-12-20 19:35] VITALS: BP 128/74; PULSE 61; RESP 16; TEMP 36.7; O2SAT 94
[2022-12-20 21:00] VITALS: PULSE 61; RESP 16; O2SAT 16
[2022-12-20] MEDS: Rosuvastatin 20 MG Tablet 10 MG PO (21:02)
[2022-12-20] MEDS: HYDROcodone Bitartrate/Apap 5/325 Tablet PO (21:02)
[2022-12-20] MEDS: traZODone 100 MG Tablet PO (21:03)
[2022-12-20] MEDS: Nystatin Powder 15gm Bottle 1 APPLIC TOPICAL (22:39)
--- NOTE | 2022-12-21 01:28 | NURSING ---
Reviewed and agree with Rohit FONTANEZ, documentation and assessment charting.
[2022-12-21 05:18] VITALS: BMI 31.8
[2022-12-21] MEDS: Aspirin 81 MG TAB.CHEW PO (07:51)
[2022-12-21] MEDS: Magnesium Chloride 64 MG Delay Rel.Tablet 128 MG PO (07:51)
[2022-12-21] MEDS: Potassium Chloride Oral Tablet 20 MEQ PO (07:52)
[2022-12-21] MEDS: Carvedilol 6.25 MG Tablet PO (07:52)
[2022-12-21] MEDS: metFORMIN HCl 500 MG Tablet 250 MG PO (07:52)
[2022-12-21] MEDS: Cholecalciferol (VIT D3) 25 MCG TABLET (1,000 UNITS) 50 MCG PO (07:52)
[2022-12-21] MEDS: Pantoprazole Sodium 40 MG Tablet PO (07:53)
[2022-12-21] MEDS: DULoxetine Hcl 20 MG Capsule 40 MG PO (07:53)
[2022-12-21] MEDS: Empagliflozin 10 MG Tablet PO (07:53)
[2022-12-21] MEDS: Juven (unflavored) Packet 1 PACKET PO (07:54)
[2022-12-21 07:56] VITALS: BP 147/88; PULSE 63; RESP 15; TEMP 36.7; O2SAT 94
[2022-12-21] MEDS: levETIRAcetam 500 MG Tablet 750 MG PO (07:56)
[2022-12-21] MEDS: Lisinopril 20 MG Tablet PO (07:57)
[2022-12-21 09:00] VITALS: BP 147/88; PULSE 63; RESP 15; TEMP 36.7; O2SAT 94
--- NOTE | 2022-12-21 09:00 | NURSING ---
Discharge instructions given with , family friend, and patient and verbalized dc instructions. PICC line care and atb directions through PICC written out and has prior demonstrated use to nursing.
== END 2022-12-21 09:00 | disposition home health service (06) | DRG 949 ==
PROVIDERS: Admitting Provider Internal Medicine; PCP Internal Medicine; Visit Provider Internal Medicine
DX: Z48.811 Encounter for surgical aftercare following surgery on the nervous system (principal); M86.18 Other acute osteomyelitis, other site; I69.354 Hemiplegia and hemiparesis following cerebral infarction affecting left non-dominant side; D62 Acute posthemorrhagic anemia; G40.109 Localization-related (focal) (partial) symptomatic epilepsy and epileptic syndromes with simple partial seizures, not intractable, without status epilepticus; E11.9 Type 2 diabetes mellitus without complications; B95.61 Methicillin susceptible Staphylococcus aureus infection as the cause of diseases classified elsewhere; B37.31 Acute candidiasis of vulva and vagina; B96.89 Other specified bacterial agents as the cause of diseases classified elsewhere; G93.89 Other specified disorders of brain; I10 Essential (primary) hypertension; F32.9 Major depressive disorder, single episode, unspecified; F41.9 Anxiety disorder, unspecified; E78.5 Hyperlipidemia, unspecified; G47.33 Obstructive sleep apnea (adult) (pediatric); H90.2 Conductive hearing loss, unspecified; N63.20 Unspecified lump in the left breast, unspecified quadrant; G47.00 Insomnia, unspecified; Z79.899 Other long term (current) drug therapy; Z79.82 Long term (current) use of aspirin; Z79.84 Long term (current) use of oral hypoglycemic drugs
CPT/HCPCS: 36415; 70450; 70553; 80048; 80053; 80076; 81001; 82274; 82962; 83735; 84100; 84443; 85025; 85027; 85652; 86140; 87086; 92507; 92523; 94668; 95819; 96125; 97110; 97112; 97116; 97129; 97130; 97162; 97166; 97530; 97535; 97802; 99285; A9575; J7030; J7050; A4216; J0696; J2405

== ENCOUNTER → 2022-12-24 | Outpatient (CLI) | payer MEDICARE, SELFPAY ==
[2022-12-24 17:24] LABS: Absolute Lymphocyte Count 2.23 X10^3/uL (0.83-4.51); Absolute Neutrophil Count 1.5 X10^3/uL (2.0-7.7); Basophil# 0.06 X10^3/uL; Basophil% 1.3 % (0-1); Eosinophil# 0.14 X10^3/uL; Eosinophils% 3.1 % (0-5); Hematocrit 32.9 % (37-47); Hemoglobin 10.2 g/dL (12.0-15.0); Lymphocyte # 2.23 X10^3/ul (0.83-4.51); Lymphocyte % 48.7 % (19-41); Mean Corpuscular Hgb 27.3 pg (27.0-32.0); Mean Corpuscular Volume 88.2 fL (81-99); Mean Platelet Vol. 10.8 fl (6.2-12.0); Monocyte# 0.61 X10^3/uL; Monocyte% 13.3 % (0-10); NRBC Flagged by Analyzer 0 % (0-5); Neutrophil # 1.53 X10^3/uL (2.7-7.7); Neutrophil % 33.4 % (47-70); Platelet Count 237 K/mm3 (150-450); RBC Distribution Width CV 13.2 % (11.6-14.6); RBC Distribution Width SD 42.8 fl (35.1-43.9); Red Blood Count 3.73 M/mm3 (4.2-5.4); White Blood Count 4.6 K/mm3 (4.4-11.0)
[2022-12-24 17:54] LABS: Erythrocyte Sedimentation Rate 25 mm/hr (0-30)
[2022-12-24 18:41] LABS: Anion Gap 6 (5-15); BUN 14 mg/dL (7-18); CRP < 2.90 mg/L (0.0-3.0); Calcium,Total 9.3 mg/dL (8.5-10.1); Chloride 108 mmol/L (98-107); Creatinine, Serum 0.67 mg/dL (0.55-1.02); EST Glomerular Filtration Rate 94 mL/min (>60); Est Glom Filt Rate - Afr Amer 113 mL/min (>60); Glucose 104 mg/dL (74-106); Potassium 4.1 mmol/L (3.5-5.1); Sodium Level 141 mmol/L (136-145)
== END | disposition home or self-care (01) ==
PROVIDERS: PCP Internal Medicine; Visit Provider Internal Medicine
DX: E11.69 Type 2 diabetes mellitus with other specified complication (principal); M86.8X8 Other osteomyelitis, other site
CPT/HCPCS: 80048; 85025; 85652; 86140

== ENCOUNTER → 2022-12-26 | Outpatient (CLI) | payer MEDICARE, SELFPAY ==
[2022-12-26 13:58] LABS: Amphetamine Urine VISTA NEGATIVE (<1000 ng/mL); Barbiturate Urine VISTA NEGATIVE (< 200 ng/mL); Benzodiazepine Urine VISTA NEGATIVE (< 200 ng/mL); Cocaine Urine VISTA NEGATIVE (< 300 ng/mL); Ecstacy Urine VISTA NEGATIVE (< 500 ng/mL); Methadone Urine VISTA NEGATIVE (< 300 ng/mL); PCP Urine VISTA NEGATIVE (< 25 ng/mL); THC Urine VISTA NEGATIVE (< 50 ng/mL); Vista UDS pH Range 6
== END | disposition home or self-care (01) ==
LOC: LAB 12:53
PROVIDERS: PCP Internal Medicine; Referring Provider Anesthesiology Pain Medicine; Visit Provider Anesthesiology Pain Medicine
DX: F11.20 Opioid dependence, uncomplicated (principal)
CPT/HCPCS: 80307

== ENCOUNTER 2023-01-01 12:56 | Emergency (ER) | payer MEDICARE, SELFPAY ==
[2023-01-01 12:58] VITALS: BP 123/78; PULSE 59; RESP 16; TEMP 35.7; O2SAT 99
[2023-01-01 13:20] VITALS: BP 123/78; PULSE 53; RESP 16; TEMP 36.6; O2SAT 100; BMI 31.1
--- NOTE | 2023-01-01 14:06 | EDS_ITS ---
HPI History of Present Illness Chief Complaint: Wound Check Informant: patient and spouse/S.O. Narrative Narrative: Presents with PICC line dysfunction. Placed November 08 at [facility]. Patient had a hemorrhagic stroke in June. She had a craniotomy that got infected. Patient was at the TCU discharged this past . She is on antibiotic twice a day unclear what antibiotic. Home nurse yesterday unable to flush. She missed yesterday evening this morning's dose. Records reviewed note she is on 2 g Rocephin every 12 hours. Denies fevers. Prior similar symptoms: No PFSH PFSH Medical History Abdominal adhesions Anxiety Chronic back pain Diabetes mellitus, type 2 Hearing loss Heme positive stool Hemorrhagic stroke History of ectopic History of hemorrhagic cerebrovascular accident (CVA) without residual deficits Hyperlipidemia Hypertension Obstructive sleep apnea Sleep apnea Stroke/cerebrovascular accident Home Medications aspirin 81 mg tablet 81 mg PO DAILY heart 11/15/22 [History Last Taken Unknown] acidophilus 25 million cell-pectin, citrus 100 mg tablet 1 tab PO BID #60 tabs 12/18/22 [Rx Last Taken Unknown] carvedilol 6.25 mg tablet (Coreg) 6.25 mg PO BID BP #60 tabs 12/18/22 [Rx Last Taken Unknown] cholecalciferol (vitamin D3) 50 mcg (2,000 unit) tablet 50 mcg PO QWEEK vitamin #4 tabs 12/18/22 [Rx Last Taken Unknown] duloxetine 20 mg capsule,delayed release 40 mg (2 x 20 mg) PO DAILY #60 caps 12/18/22 [Rx Last Taken Unknown] empagliflozin 10 mg tablet (Jardiance) 10 mg PO DAILY@0800 dm #30 tabs 12/18/22 [Rx Last Taken Unknown] hydrocodone-acetaminophen 5-325mg 5mg-325mg 1 tab PO Q4H PRN PRN Pain Score 1-10 7 days #40 tabs 12/18/22 [Rx Last Taken Unknown] levetiracetam 500 mg tablet 750 mg (1.5 x 500 mg) PO BID #90 tabs 12/18/22 [Rx Last Taken Unknown] lisinopril 20 mg tablet 20 mg PO DAILY #30 tabs 12/18/22 [Rx Last Taken Unknown] magnesium chloride 64 mg (magnesium chloride) tablet,delayed release (Mag 64) 128 mg (2 x 64 mg) PO DAILY vitamin #60 tabs 12/18/22 [Rx Last Taken Unknown] metformin 500 mg tablet 250 mg (1/2 x 500 mg) PO BIDCM dm #30 tabs 12/18/22 [Rx Last Taken Unknown] pantoprazole 40 mg tablet,delayed release 40 mg PO DAILY gerd #30 tabs 12/18/22 [Rx Last Taken Unknown] potassium chloride 20 mEq tablet,extended release 20 meq PO DAILY supp #30 tabs 12/18/22 [Rx Last Taken Unknown] rosuvastatin 20 mg tablet (Crestor) 10 mg (1/2 x 20 mg) PO QHS Cholestrol #30 tabs 12/18/22 [Rx Last Taken Unknown] sennosides 8.6 mg-docusate sodium 50 mg tablet (Stool Softener-Stimulant Laxative) 2 tab PO BID #120 tabs 12/18/22 [Rx Last Taken Unknown] trazodone 100 mg tablet 100 mg PO QHS #30 tabs 12/18/22 [Rx Last Taken Unknown] Allergy/AdvReac Type Severity Reaction Status Date / Time latex Allergy Rash Verified 01/01/23 12:57 naproxen Allergy Rash Verified 01/01/23 12:57 Nuaiego-HGP-FyV Reductase Allergy MUSCLE Verified 01/01/23 12:57 Inhibitor ACHES [Xuqbigi-Cbq-Sjo Reductase Inhibitor] Family History Other CVA (cerebral vascular accident) Diabetes Surgical History History of bunionectomy History of open heart surgery History of vein stripping Hx of craniotomy Previous back surgery Social History household members: spouse housing: other details: One-story house with 2 steps to enter the house Smoking Status: Never smoker alcohol intake: never substance use type: does not use ROS ROS ED Constitutional Constitutional ED: Denies chills, fever(s) or sweats Eyes Eyes: Denies change in vision ENT ENT ED: Denies dysphagia or sore throat Cardiovascular Cardiovascular: Denies chest pain, leg edema, palpitations or racing heartbeat Respiratory/Chest Respiratory/Chest: Denies cough, dyspnea or dyspnea on exertion Gastrointestinal Gastrointestinal: Denies abdominal pain, diarrhea, nausea or vomiting Genitourinary Genitourinary ED: Denies dysuria, hematuria or urinary frequency Musculoskeletal Musculoskeletal: Denies back pain, extremity pain or neck pain Integumentary Denies rash or wounds Neurologic Neurologic: Denies headache(s), paresthesias or weakness EXAM Physical Exam Const Vital Signs: 01/01/23 12:58 01/01/23 13:20 Temperature 96.3 F L 98 F Temperature Source Temporal Oral Pulse Rate 59 L 53 L Respiratory Rate 16 16 Blood Pressure 123/78 H 123/78 H Blood Pressure Mean 93 93 Pulse Ox 99 100 Oxygen Delivery Method Room Air Room Air Positive well nourished and well developed General Appearance ED: well developed and NAD HEENT Reports moist mucous membranes normocephalic and atraumatic Eyes PERRL, EOMs intact bilaterally and conjunctivae normal General Eye ED: Yes normal appearance of both eyes Neck no lymphadenopathy and supple General: Negative for tenderness Chest Wall Chest: Negative for tenderness Resp normal respiratory effort and normal air movement Effort and Inspection: symmetric chest movement; Negative for respiratory distress Cardio regular rate, regular rhythm and no murmurs Peripheral Pulses: pulses 2+ throughout GI normal to inspection, nondistended, normoactive bowel sounds and non-tender Palpation: Negative for guarding or rebound tenderness present Back/Spine no CVA tenderness and no thoracic nor lumbar tenderness Extremity normal to inspection General Extremety ED: Negative for edema or tenderness General Extremity: Negative for edema Neuro oriented x3 and no sensory deficits noted Sensorium / Orientation: awake and alert Skin no rashes or lesions noted and no wounds Skin Narrative: Right upper extremity PICC line dressing clean, dry, intact. MDM MDM MDM Narrative Medical decision making narrative: Interventions / MDM: Differential diagnosis: PICC line dysfunction Diagnosis considered but do not suspect: N/A My EKG interpretation: N/A Imaging independently reviewed and interpreted by myself: N/A External documents reviewed: N/A Test considered but not ordered:N/A ED course: Nontoxic. PICC line flushed with alteplase by nursing, is working. She was infused her 2 g of Rocephin in the ED. She discharged with continued management at home with her significant other. All questions were answered. Re-evaluation: stable Disposition discussed with patient/family/significant other: Patient and spouse Case discussed with consulting clinician: N/A This note was generated with [employer] dictation software. It may contain incorrect words, spelling, and punctuation that were not noted in checking the note before signing. Discharge Plan Triage Chief Complaint: Wound Check ED Provider: Dilip Waters Dx/Rx/DC Orders Clinical Impression: Occluded PICC line, Osteomyelitis of skull Instructions: Caring for Your PICC Dc Prescriptions: No Action aspirin 81 mg Tablet 81 mg PO DAILY lisinopril 20 mg Tablet 20 mg PO DAILY Qty: 30 0RF trazodone 100 mg Tablet 100 mg PO QHS Qty: 30 0RF duloxetine 20 mg Capsule,Delayed Release(Dr/Ec) 40 mg PO DAILY Qty: 60 0RF levetiracetam 500 mg Tablet 750 mg PO BID Qty: 90 0RF hydrocodone-acetaminophen 5-325 mg Tablet 1 tab PO Q4H PRN PRN (Reason: Pain Score 1-10) 7 Days Qty: 40 0RF sennosides-docusate sodium [Stool Softener-Stimulant Laxat] 8.6-50 mg Tablet 2 tab PO BID Qty: 120 0RF acidophilus-pectin, citrus 25 million cell -100 mg Tablet 1 tab PO BID Qty: 60 0RF metformin 500 mg tablet 250 mg PO BIDCM Qty: 30 0RF carvedilol [Coreg] 6.25 mg Tablet 6.25 mg PO BID Qty: 60 0RF pantoprazole 40 mg tablet,delayed release (DR/EC) 40 mg PO DAILY Qty: 30 0RF rosuvastatin [Crestor] 20 MG tablet 10 mg PO QHS Qty: 30 0RF cholecalciferol (vitamin D3) 50 mcg (2,000 unit) Tablet 50 mcg PO QWEEK Qty: 4 0RF Mag 64 64 mg tablet,delayed release (DR/EC) 128 mg PO DAILY Qty: 60 0RF potassium chloride 20 mEq tablet extended release 20 meq PO DAILY Qty: 30 0RF Jardiance 10 mg tablet 10 mg PO DAILY@0800 Qty: 30 0RF Primary Care Provider: Flaquita Fink Referrals: Flaquita Fink MD [Primary Care Provider] - 1-2 Weeks Activity Restrictions/Additional Instructions: PICC line flushed with alteplase and now working. Antibiotic Rocephin given in the ED. Continue your normal antibiotic scheduling every 12 hours. Follow-up with your doctors. Disposition Disposition: Home, Self Care
[2023-01-01] MEDS: Alteplase 2 MG/2 ML Vial IV (15:27)
--- NOTE | 2023-01-01 15:55 | ED.RN ---
PICC line had positive blood return, flushes easily. ATB infusing
[2023-01-01 16:56] VITALS: BP 128/70; PULSE 66; RESP 16; TEMP 36.9; O2SAT 98
--- NOTE | 2023-01-01 16:57 | ED.RN ---
PICC flushes easily following IV atb. Verbalized understanding of instructions. Home with .
== END 2023-01-01 16:57 | disposition home or self-care (01) ==
PROVIDERS: Emergency Provider Emergency Medicine; PCP Internal Medicine; Visit Provider Emergency Medicine
DX: T82.594A Other mechanical complication of infusion catheter, initial encounter (principal); M86.8X8 Other osteomyelitis, other site; E11.69 Type 2 diabetes mellitus with other specified complication; Y83.8 Other surgical procedures as the cause of abnormal reaction of the patient, or of later complication, without mention of misadventure at the time of the procedure; I10 Essential (primary) hypertension; E78.5 Hyperlipidemia, unspecified; M54.9 Dorsalgia, unspecified; G89.29 Other chronic pain; Z79.82 Long term (current) use of aspirin; Z79.84 Long term (current) use of oral hypoglycemic drugs; Z79.899 Other long term (current) drug therapy; Z86.73 Personal history of transient ischemic attack (TIA), and cerebral infarction without residual deficits
CPT/HCPCS: 96365; 96375; 99281; J2997; A4216; J0696

== ENCOUNTER 2023-04-15 17:53 | Inpatient (IN) | payer MEDICARE, SELFPAY ==
[2023-04-15 18:25] VITALS: BMI 29.0
[2023-04-15 18:57] VITALS: BP 161/71; PULSE 70; RESP 18; TEMP 36.9; O2SAT 94
[2023-04-15] MEDS: Cephalexin 500 MG Capsule 1000 MG PO (20:57)
[2023-04-15] MEDS: Rosuvastatin 20 MG Tablet PO (20:58)
[2023-04-15] MEDS: levETIRAcetam 750 MG Tablet PO (20:58)
[2023-04-15] MEDS: traZODone 100 MG Tablet 50 MG PO (20:58)
[2023-04-15 21:00] VITALS: BP 125/76; PULSE 63
[2023-04-15] MEDS: Carvedilol 6.25 MG Tablet PO (21:00)
--- NOTE | 2023-04-15 21:05 | HP.PCM_ITS ---
HPI - General General Date of Admission: 04/15/23 Date of Service: 04/16/23 Chief Complaint: Here for 3 hours daily rehabilitation. 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 04/03/2023 Admit to [facility]. 04/03/2023 Right sided cranioplasty with PMMA implant, status post fa sciocutaneous flap, plus pericranial flap. 04/08/2023 Cefazolin IV, then Keflex PO for infection prophylaxis. 04/15/2023 Admit to for 3 hours daily rehabilitation, strengthening, prior to discharge home with . [facility] Medical History (Updated 04/15/23 @ 21:[address] Corey Portillo MD) Abdominal adhesions Anxiety Chronic back pain Diabetes mellitus, type 2 Hearing loss Heme positive stool Hemorrhagic stroke History of ectopic History of hemorrhagic cerebrovascular accident (CVA) without residual deficits Hyperlipidemia Hypertension Obstructive sleep apnea Sleep apnea Stroke/cerebrovascular accident Home Medications acidophilus 25 million cell-pectin, citrus 100 mg tablet 1 tab PO BID Supplement #60 tabs 12/18/22 [Rx Last Taken Unknown] carvedilol 6.25 mg tablet (Coreg) 6.25 mg PO BID BP #60 tabs 12/18/22 [Rx Last Taken Unknown] duloxetine 20 mg capsule,delayed release 40 mg (2 x 20 mg) PO DAILY Mood #60 caps 12/18/22 [Rx Last Taken 04/15/23] empagliflozin 10 mg tablet (Jardiance) 10 mg PO DAILY@0800 dm #30 tabs 12/18/22 [Rx Last Taken Unknown] levetiracetam 500 mg tablet 750 mg (1.5 x 500 mg) PO BID Seizures #90 tabs 12/18/22 [Rx Last Taken Unknown] lisinopril 20 mg tablet 20 mg PO DAILY BP #30 tabs 12/18/22 [Rx Last Taken Unknown] magnesium chloride 64 mg (magnesium chloride) tablet,delayed release (Mag 64) 128 mg (2 x 64 mg) PO DAILY vitamin #60 tabs 12/18/22 [Rx Last Taken Unknown] metformin 500 mg tablet 250 mg (1/2 x 500 mg) PO BIDCM dm #30 tabs 12/18/22 [Rx Last Taken Unknown] pantoprazole 40 mg tablet,delayed release 40 mg PO DAILY gerd #30 tabs 12/18/22 [Rx Last Taken Unknown] potassium chloride 20 mEq tablet,extended release 20 meq PO DAILY supp #30 tabs 12/18/22 [Rx Last Taken Unknown] rosuvastatin 20 mg tablet (Crestor) 10 mg (1/2 x 20 mg) PO QHS Cholestrol #30 tabs 12/18/22 [Rx Last Taken Unknown] sennosides 8.6 mg-docusate sodium 50 mg tablet (Stool Softener-Stimulant Laxative) 2 tab PO BID Stool softner #120 tabs 12/18/22 [Rx Last Taken Unknown] cephalexin 500 mg capsule 500 mg PO Q12H Antibiotic 04/15/23 [History Last Taken 04/15/23] cholecalciferol (vitamin D3) 50 mcg (2,000 unit) tablet 50 mcg PO WE vitamin 04/15/23 [History Last Taken Unknown] hydrocodone-acetaminophen 5-325mg 5mg-325mg 1 tab PO Q12H PRN Pain Score 1-10 04/15/23 [History Last Taken Unknown] ondansetron 4 mg disintegrating tablet 4 mg PO Q6H PRN Nausea 04/15/23 [History Last Taken Unknown] oxycodone 5 mg tablet 5 mg PO Q6H PRN Pain 04/15/23 [History Last Taken Unknown] trazodone 100 mg tablet 50 mg PO QHS Sleep 04/15/23 [History Last Taken Unknown] Allergy/AdvReac Type Severity Reaction Status Date / Time latex Allergy Rash Verified 01/01/23 12:57 naproxen Allergy Rash Verified 01/01/23 12:57 Ylduytg-WXT-ChK Reductase Allergy MUSCLE Verified 01/01/23 12:57 Inhibitor ACHES [Pepjlxd-Yzz-Ntg Reductase Inhibitor] Family History Other CVA (cerebral vascular accident) Diabetes Surgical History (Updated 04/15/23 @ 21:[address] Corey Portillo MD) History of bunionectomy History of cranioplasty History of open heart surgery History of vein stripping Hx of craniotomy Previous back surgery Social History household members: spouse housing: other details: One-story house with 2 steps to enter the house Smoking Status: Never smoker alcohol intake: never substance use type: does not use ROS Constitutional Constitutional: Denies chills, fever(s) or weight gain ENT HEENT: Denies headache(s), nasal congestion or nasal discharge Cardiovascular Cardiovascular: Denies chest pain or palpitations Respiratory/Chest Respiratory/Chest: Denies cough, excessive phlegm production or shortness of breath with exertion Gastrointestinal Gastrointestinal: Denies abdominal pain, nausea or vomiting Genitourinary Genitourinary: Denies dysuria Musculoskeletal Musculoskeletal: Denies joint pain or joint swelling Integumentary Integumentary: Denies rash or wounds Neurologic Neurologic: Denies focal weakness, numbness or tingling Psychiatric Psychiatric: Denies anxiety, auditory hallucinations, depression, homicidal ideation or suicidal ideation Vital Signs Vital Signs Vital Signs: 04/15/23 18:57 04/15/23 21:00 Temperature 98.4 F Temperature Source Temporal Pulse Rate 70 63 Respiratory Rate 18 Blood Pressure 161/71 H 125/76 H Blood Pressure Mean 101 92 Blood Pressure Source Monitor Monitor Blood Pressure Position Semi-Fowlers Semi-Fowlers Blood Pressure Location Right Arm Right Arm Pulse Ox 94 Oxygen Delivery Method Room Air Weight Weight: 75.4 kg Body Mass Index (BMI) 29.0 Indicators for Scoring Admitted with or Primary Diagnosis of CVA/Stroke: No Hx of CVA/Stroke: Yes Modified [place] Score MRS Score at time of Evaluation: 4-Moderate/severe disability Physical Exam Const alert General Appearance: cooperative HEENT normocephalic HEENT Narrative: Right sided anterior posterior scalp incision clean, dry, sutures intact. Eyes PERRL and EOMs intact bilaterally Neck supple, no JVD and no carotid bruits Resp normal respiratory effort, normal air movement and clear to auscultation bilaterally Cardio regular rate and regular rhythm GI normal to inspection, nondistended, normoactive bowel sounds, non-tender and non-distended Extremity normal capillary refill General Extremity: Negative for edema Skin no rashes or lesions noted General Skin Exam: no breakdown Psych affect normal Appearance: appropriate Results Lab / Micro Data 04/16/23 05:45 04/16/23 05:45 Assessment & Plan Assessment/Plan (1) Debility: (2) History of cranioplasty: (3) Hemorrhagic stroke: (4) Hypertension: QUALIFIERS: Hypertension type: primary hypertension Qualified Code(s): I10 - Essential (primary) hypertension (5) Depression: QUALIFIERS: Depression Type: reactive depression Qualified Code(s): F32.9 - Major depressive disorder, single episode, unspecified (6) Diabetes mellitus: (7) Hypothyroidism: (8) Muscle spasm: (9) Hyperlipidemia: (10) Urinary retention: PLAN: Plan 67 year old female with below past medical history 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 * Debility - PT/OT/ST. * Pain - Oxycodone 5mg q6 prn. * Bowel - senna/colace 2 tablets bid, Dulcolax 10mg pr x 1 prn, MOM 30ml po x 1 prn. * Hypertension - Coreg 6.25mg bid, Lisinopril 20mg daily. * ID prophylaxis - Keflex 1000mg po q12 thru 04/22/2023. * Vitamin D deficiency - D3 50mcg qweek. * Depression - Duloxetine 40mg daily. * Diabetes Mellitus II - Jardiance 10mg daily. * GI prophylaxis - Lactobacillus 1 bid. * Seizure disorder - Keppra 750mg bid. * Hypomagnesemia - Magnesium chloride 128mg daily. * Nausea - Zofran ODT 4mg q6h prn. * GERD - Pantoprazole 40mg daily, * Hypokalemia - KCL 20meq daily. * Hyperlipidemia - Rosuvastatin 20mg qhs. * Insomnia - Trazodone 50mg qhs.
[2023-04-16 05:59] LABS: Hematocrit 29.1 % (37-47); Mean Corp Hgb Conc 30.9 g/dL (32-36); Mean Corpuscular Hgb 26.7 pg (27.0-32.0); Mean Corpuscular Volume 86.4 fL (81-99); Mean Platelet Vol. 9.6 fl (6.2-12.0); POSITIVE MORPHOLOGY YES; Platelet Count 279 K/mm3 (150-450); RBC Distribution Width CV 20.5 % (11.6-14.6); RBC Distribution Width SD 64.4 fl (35.1-43.9); Red Blood Count 3.37 M/mm3 (4.2-5.4); White Blood Count 4.7 K/mm3 (4.4-11.0)
[2023-04-16 06:13] LABS: Scan Indicated on CBC? Y/N YES- FLAGS NOTED
[2023-04-16 06:39] LABS: ALB/GLOB Ratio 0.9 RATIO (0.9-2.4); AST(SGOT) 15 U/L (15-37); Alanine Aminotransfer ALT/SGPT 16 U/L (13-56); Albumin, Serum 3.4 g/dL (3.2-5.0); Alkaline Phosphatase 47 U/L (45-117); Anion Gap 2 (5-15); BUN 13 mg/dL (7-18); BUN/Creat Ratio 22.1 RATIO (10-20); Calcium,Total 10.3 mg/dL (8.5-10.1); Chloride 108 mmol/L (98-107); Creatinine, Serum 0.59 mg/dL (0.55-1.02); EST Glomerular Filtration Rate 108 mL/min (>60); Est Glom Filt Rate - Afr Amer 130 mL/min (>60); Estimated Creatinine Clearance 44.54 ml/min; Globulin 3.7 g/dL (2.2-4.2); Glucose 127 mg/dL (74-106); Magnesium 1.9 mg/dL (1.6-2.6); Potassium 3.8 mmol/L (3.5-5.1); Protein, Total 7.1 g/dL (6.4-8.2); Sodium Level 142 mmol/L (136-145)
[2023-04-16 06:48] LABS: Bedside Glucose 121 mg/dL (74-106)
[2023-04-16 06:53] VITALS: BMI 29.1
[2023-04-16 07:00] VITALS: O2SAT 93
[2023-04-16 07:27] VITALS: BP 111/73; PULSE 64; RESP 16; TEMP 36.8; O2SAT 98
[2023-04-16] MEDS: DULoxetine Hcl 20 MG Capsule 40 MG PO (08:26)
[2023-04-16] MEDS: Magnesium Chloride 64 MG Delay Rel.Tablet 128 MG PO (08:26)
[2023-04-16] MEDS: levETIRAcetam 750 MG Tablet PO ×2 (08:26→21:30)
[2023-04-16] MEDS: Cephalexin 500 MG Capsule 1000 MG PO ×2 (08:26→21:31)
[2023-04-16] MEDS: Pantoprazole Sodium 40 MG Tablet PO (08:26)
[2023-04-16] MEDS: Senna/Docusate Sodium 1 Tablet 2 TABLET PO ×2 (08:27→21:30)
[2023-04-16] MEDS: Potassium Chloride Oral Tablet 20 MEQ PO (08:27)
[2023-04-16] MEDS: Empagliflozin 10 MG Tablet PO (08:27)
[2023-04-16] MEDS: Lisinopril 20 MG Tablet PO (08:27)
[2023-04-16] MEDS: Carvedilol 6.25 MG Tablet PO ×2 (08:27→21:29)
[2023-04-16] MEDS: Flu Vacc QS2023-24(65YR UP)/PF 240 MCG/0.7 ML Syringe IM (08:28)
[2023-04-16 19:17] VITALS: BP 101/54; PULSE 64; RESP 16; TEMP 36.8; O2SAT 97
[2023-04-16] MEDS: oxyCODONE 5 MG Tablet PO (19:37)
[2023-04-16 19:51] VITALS: PULSE 70; RESP 15; O2SAT 96
[2023-04-16] MEDS: traZODone 100 MG Tablet 50 MG PO (21:29)
[2023-04-16] MEDS: Rosuvastatin 20 MG Tablet PO (21:29)
[2023-04-16 21:35] VITALS: BMI 29.1
[2023-04-17] MEDS: Magnesium Hydroxide 30 ML UDC PO (02:21)
--- NOTE | 2023-04-17 04:47 | NURSING ---
PVR #2. Str cathed for 675ML and BS for 0ML. Pt tolerated well.
[2023-04-17 06:28] VITALS: O2SAT 94
[2023-04-17 07:08] LABS: Bedside Glucose 133 mg/dL (74-106)
[2023-04-17 07:25] VITALS: BP 110/76; PULSE 78; RESP 16; TEMP 37.1; O2SAT 92
--- NOTE | 2023-04-17 07:47 | REHABEVAL_ITS ---
Admission Information Primary Diagnosis:: s/p cranioplasty, left hemiparesis. Status Changes from Prescreening?: No changes Identified Actual Problem List:: Pain, ALteration in Cmfrt, Mobility Impaired, Self Care Deficit, Know.Dfct/Disease Process and Alteration-Leisure Activ. Potential Problem List:: DVT, Bleeding, Infection, UTI, Aspiration, Falls, Skin Integrity and Depression Risk of Complications DVT: MONIK Hose Bleeding: Monitor Lab Values, Nursing to Teach Precautions for anti-coagulation therapy., Wound, if applicable, to be assessed every shift. and Stroke patients assessed for lethargy or change in status. Infection: Clinical Staff to Monitor for S/S of infection: and S/S of infection include fever, redness, warmth, etc. Urinary Tract Infection: Monitor for frequency, burning, discomfort, or incontinence. and Nursing will obtain urine sample for urinalysis and C&S when ordered. Aspiration: Clinical staff will monitor for coughing, drooling, congestion., Speech will evaluate swallowing and dsyphasia. and Nursing will monitor patient swallowing during meals. Falls: Patient will be evaluated for Fall Precautions and Patient will be placed on Fall Precautions as indicated per protocol. Skin Breakdown: Nursing will assess skin daily using assessment tool. and Nu rsing will place on Skin Breakdown Precautions as indicated. Pain: Clinical staff will assess patient's pain level per protocol., Medications will be given, if needed, and the pain level reassessed. and Other methods: Massage, distraction, decrease stimulus, etc. used PRN. Plan of Care Patient requires 24/7 Rehabilitation Nursing for: Pain Issues, Identifying and preventing risk factors, Monitoring and reporting current medical conditions, Assisting with ambulation, transfer, and all ADL's, Teaching patients about disease process and medications, Family teaching, Providing safe environment, Bowel and Bladder Issues, Skin integrity and Medication Management Patient needs Reel Hooker/ Case Management for: Discharge Planning, Arranging Home Equipment or Services and Family Interventions Patient needs Dietary and Nutrition Services for: Adequate Nutrition, Nutrition al Supplements and Nutritional Education Goals Patient will remain: free from falls and or injury at time of discharge. Patient will complete transfers from bed to chair at: Standby Assist. Patient will ambulate: - (500 feet Sup) Patient will complete upper body dressing at: - (Sup) Patient will complete lower body dressing at: - (Sup with AE) Patient will complete toileting at: - (Sup) Patient will complete grooming at: MOD I level of assist. Patient will achieve: - (2 steps CGA) Patient will have pain level of: of 3 or less Patient's skin will: remain intact and free from infection. Patient will receive: adequate nutrition. Discharge Planning Pt Prognosis for Sig. Practical Improv. w/in Reasonable Time: Good Estimated Length of stay (days): 14 Anticipated D/C Destination: Home with Outpt Therapy Was Preadmission Assessment Accurate?: Yes
[2023-04-17] MEDS: Empagliflozin 10 MG Tablet PO (09:24)
[2023-04-17] MEDS: DULoxetine Hcl 20 MG Capsule 40 MG PO (09:43)
[2023-04-17] MEDS: Carvedilol 6.25 MG Tablet PO ×2 (09:43→20:28)
[2023-04-17] MEDS: Potassium Chloride Oral Tablet 20 MEQ PO (09:43)
[2023-04-17] MEDS: Pantoprazole Sodium 40 MG Tablet PO (09:43)
[2023-04-17] MEDS: Magnesium Chloride 64 MG Delay Rel.Tablet 128 MG PO (09:43)
[2023-04-17] MEDS: levETIRAcetam 750 MG Tablet PO ×2 (09:43→20:26)
[2023-04-17] MEDS: Cephalexin 500 MG Capsule 1000 MG PO ×2 (09:43→20:26)
[2023-04-17] MEDS: Lisinopril 20 MG Tablet PO (09:44)
[2023-04-17] MEDS: Senna/Docusate Sodium 1 Tablet 2 TABLET PO ×2 (09:44→20:25)
[2023-04-17] MEDS: Cholecalciferol (VIT D3) 25 MCG TABLET (1,000 UNITS) 50 MCG PO (09:44)
[2023-04-17 13:31] VITALS: BMI 29.1
--- NOTE | 2023-04-17 14:05 | PN_ITS ---
Subjective Subjective Patient seen, examined. She is constipated today, Soap suds enema ordered. Objective Data Objective Data Vital Signs: Vital Signs Temp Pulse Resp BP Pulse Ox O2 Del Method 98.8 F 78 16 110/76 92 Room Air 04/17/23 07:25 04/17/23 07:25 04/17/23 07:25 04/17/23 07:25 04/17/23 07:25 04/17/23 07:25 Oxygen Delivery Method Room Air Weight: 74.6 kg Body Mass Index (BMI) 29.1 Intake & Output: Intake and Output for Last 24 Hours 04/15/23 04/16/23 04/17/23 23:59 23:59 23:59 Intake Total 100 / 100 680 / 680 Output Total 300 / 300 Balance 100 / 100 380 / 380 Lab / Micro Data Attestation: I reviewed the patient's lab results. 04/16/23 05:45 04/16/23 05:45 Labs: Laboratory Results - last 24 hr 04/17/23 06:28: POC Glucose 133 H Physical Exam Const alert General Appearance: cooperative HEENT normocephalic HEENT Narrative: Right sided anterior posterior scalp incision clean, dry, sutures intact. Eyes PERRL and EOMs intact bilaterally Neck supple, no JVD and no carotid bruits Resp normal respiratory effort, normal air movement and clear to auscultation bilaterally Cardio regular rate and regular rhythm GI normal to inspection, nondistended, normoactive bowel sounds, non-tender and non-distended Extremity normal capillary refill General Extremity: Negative for edema Skin no rashes or lesions noted General Skin Exam: no breakdown Psych affect normal Appearance: appropriate Assessment & Plan Assessment/Plan (1) Debility: (2) History of cranioplasty: (3) Hemorrhagic stroke: (4) Hypertension: QUALIFIERS: Hypertension type: primary hypertension Qualified Code(s): I10 - Essential (primary) hypertension (5) Depression: QUALIFIERS: Depression Type: reactive depression Qualified Code(s): F32.9 - Major depressive disorder, single episode, unspecified (6) Diabetes mellitus: (7) Hypothyroidism: (8) Muscle spasm: (9) Hyperlipidemia: (10) Urinary retention: PLAN: Plan 67 year old female with below past medical history 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 * Debility - PT/OT/ST. * Pain - Oxycodone 5mg q6 prn. * Bowel - senna/colace 2 tablets bid, Dulcolax 10mg pr x 1 prn, MOM 30ml po x 1 prn, Soap suds enema x 1 today. * Hypertension - Coreg 6.25mg bid, Lisinopril 20mg daily. * ID prophylaxis - Keflex 1000mg po q12 thru 04/22/2023. * Vitamin D deficiency - D3 50mcg qweek. * Depression - Duloxetine 40mg daily. * Diabetes Mellitus II - Jardiance 10mg daily. * GI prophylaxis - Lactobacillus 1 bid. * Seizure disorder - Keppra 750mg bid. * Hypomagnesemia - Magnesium chloride 128mg daily. * Nausea - Zofran ODT 4mg q6h prn. * GERD - Pantoprazole 40mg daily, * Hypokalemia - KCL 20meq daily. * Hyperlipidemia - Rosuvastatin 20mg qhs. * Insomnia - Trazodone 50mg qhs. Capacity Capacity Assessment Tool Can the patient make a choice & communicate that choice?: Yes Can the patient understand benefits, risks and alternatives?: Yes Can the patient make a logical, rational choice?: Yes Is the choice the patient makes consistent w/ their values?: Yes Is there an impending, emergent risk to the patient?: No Does the patient have an Advance Directive?: Yes Is there a Surrogate Available?: Yes i.e. HCPOA: Yes i.e. close relative (spouse, child, parent, sibling)?: Yes
[2023-04-17 19:21] VITALS: BP 120/61; PULSE 69; RESP 16; TEMP 36.8; O2SAT 96
[2023-04-17 20:19] VITALS: BMI 29.1
[2023-04-17 20:20] VITALS: PULSE 72; RESP 15; O2SAT 95
[2023-04-17] MEDS: traZODone 100 MG Tablet 50 MG PO (20:26)
[2023-04-17] MEDS: Rosuvastatin 20 MG Tablet PO (20:28)
[2023-04-18 06:43] LABS: Bedside Glucose 126 mg/dL (74-106)
[2023-04-18 07:58] VITALS: O2SAT 95
[2023-04-18] MEDS: DULoxetine Hcl 20 MG Capsule 40 MG PO (07:58)
[2023-04-18] MEDS: Cephalexin 500 MG Capsule 1000 MG PO ×2 (07:59→20:56)
[2023-04-18] MEDS: Pantoprazole Sodium 40 MG Tablet PO (07:59)
[2023-04-18] MEDS: Potassium Chloride Oral Tablet 20 MEQ PO (07:59)
[2023-04-18] MEDS: Empagliflozin 10 MG Tablet PO (07:59)
[2023-04-18] MEDS: Carvedilol 6.25 MG Tablet PO ×2 (07:59→20:56)
[2023-04-18] MEDS: levETIRAcetam 750 MG Tablet PO ×2 (08:00→20:56)
[2023-04-18] MEDS: Lisinopril 20 MG Tablet PO (08:00)
[2023-04-18] MEDS: Magnesium Chloride 64 MG Delay Rel.Tablet 128 MG PO (08:00)
[2023-04-18 09:31] VITALS: BP 115/74; PULSE 63; RESP 15; TEMP 36.7; O2SAT 93
[2023-04-18 13:14] VITALS: BMI 29.1
[2023-04-18 20:50] VITALS: BP 107/58; PULSE 64; RESP 17; TEMP 36.5; O2SAT 97
[2023-04-18] MEDS: traZODone 100 MG Tablet 50 MG PO (20:55)
[2023-04-18] MEDS: Rosuvastatin 20 MG Tablet PO (20:55)
[2023-04-18] MEDS: Senna/Docusate Sodium 1 Tablet 2 TABLET PO (20:56)
[2023-04-18 21:51] VITALS: BMI 29.1
[2023-04-19 07:21] LABS: Bedside Glucose 121 mg/dL (74-106)
[2023-04-19] MEDS: oxyCODONE 5 MG Tablet PO (08:23)
[2023-04-19] MEDS: Carvedilol 6.25 MG Tablet PO ×2 (08:25→21:47)
[2023-04-19] MEDS: Potassium Chloride Oral Tablet 20 MEQ PO (08:25)
[2023-04-19] MEDS: Cephalexin 500 MG Capsule 1000 MG PO ×2 (08:26→21:48)
[2023-04-19] MEDS: DULoxetine Hcl 20 MG Capsule 40 MG PO (08:26)
[2023-04-19] MEDS: Magnesium Chloride 64 MG Delay Rel.Tablet 128 MG PO (08:26)
[2023-04-19] MEDS: levETIRAcetam 750 MG Tablet PO ×2 (08:26→21:48)
[2023-04-19] MEDS: Lisinopril 20 MG Tablet PO (08:26)
[2023-04-19] MEDS: Pantoprazole Sodium 40 MG Tablet PO (08:26)
[2023-04-19] MEDS: Senna/Docusate Sodium 1 Tablet 2 TABLET PO ×2 (08:27→21:48)
[2023-04-19] MEDS: Empagliflozin 10 MG Tablet PO (08:27)
--- NOTE | 2023-04-19 08:54 | CASEMGMT ---
Social Work Team meeting held today with pt present and pt's spouse on speaker phone. PT/OT/ST/SN updated pt and family on progress while in Rehab unit. Pt has some attention issues and left sided neglect. SW updated that review was submitted to insurance on 04/17 and continued stay determination has not yet been made. SW inquired about discharge plan and is questioning if pt can return home or will need a lower level of care. SW will continue to follow for discharge planning. TERRENCE Carter
[2023-04-19 09:56] VITALS: BP 95/52; PULSE 67; RESP 16; TEMP 37.1; O2SAT 92
[2023-04-19 11:30] VITALS: BMI 29.1
[2023-04-19 19:26] VITALS: BP 88/42; PULSE 67; RESP 16; TEMP 36.8; O2SAT 92
[2023-04-19 21:40] VITALS: BP 109/54; PULSE 67; RESP 18; O2SAT 95
[2023-04-19] MEDS: traZODone 100 MG Tablet 50 MG PO (21:47)
[2023-04-19] MEDS: Rosuvastatin 20 MG Tablet PO (21:48)
[2023-04-20 05:00] VITALS: BMI 29.1
[2023-04-20 07:05] LABS: Bedside Glucose 109 mg/dL (74-106)
[2023-04-20 08:30] VITALS: BP 115/65; PULSE 64; RESP 18; TEMP 36.3; O2SAT 97
[2023-04-20] MEDS: Magnesium Chloride 64 MG Delay Rel.Tablet 128 MG PO (08:48)
[2023-04-20] MEDS: Potassium Chloride Oral Tablet 20 MEQ PO (08:48)
[2023-04-20] MEDS: Pantoprazole Sodium 40 MG Tablet PO (08:48)
[2023-04-20] MEDS: levETIRAcetam 750 MG Tablet PO ×2 (08:48→20:38)
[2023-04-20] MEDS: Carvedilol 6.25 MG Tablet PO ×2 (08:48→20:37)
[2023-04-20] MEDS: Empagliflozin 10 MG Tablet PO (08:48)
[2023-04-20] MEDS: DULoxetine Hcl 20 MG Capsule 40 MG PO (08:50)
[2023-04-20] MEDS: Lisinopril 20 MG Tablet PO (08:51)
[2023-04-20] MEDS: Senna/Docusate Sodium 1 Tablet 2 TABLET PO ×2 (08:54→20:40)
[2023-04-20] MEDS: Cephalexin 500 MG Capsule 1000 MG PO ×2 (09:00→20:37)
[2023-04-20] MEDS: oxyCODONE 5 MG Tablet PO (16:32)
[2023-04-20 17:00] VITALS: BMI 29.1
[2023-04-20 19:25] VITALS: BP 102/54; PULSE 62; RESP 16; TEMP 36.8; O2SAT 97
[2023-04-20] MEDS: traZODone 100 MG Tablet 50 MG PO (20:37)
[2023-04-20] MEDS: Rosuvastatin 20 MG Tablet PO (20:38)
[2023-04-20 20:48] VITALS: PULSE 63; RESP 16; BMI 29.1
[2023-04-21 06:59] LABS: Bedside Glucose 109 mg/dL (74-106)
[2023-04-21 07:12] VITALS: BP 116/54; PULSE 64; RESP 15; TEMP 36.4; O2SAT 94
[2023-04-21] MEDS: Potassium Chloride Oral Tablet 20 MEQ PO (08:00)
[2023-04-21] MEDS: DULoxetine Hcl 20 MG Capsule 40 MG PO (08:01)
[2023-04-21] MEDS: Pantoprazole Sodium 40 MG Tablet PO (08:01)
[2023-04-21] MEDS: Empagliflozin 10 MG Tablet PO (08:01)
[2023-04-21] MEDS: levETIRAcetam 750 MG Tablet PO ×2 (08:01→20:11)
[2023-04-21] MEDS: Carvedilol 6.25 MG Tablet PO ×2 (08:01→20:13)
[2023-04-21] MEDS: Magnesium Chloride 64 MG Delay Rel.Tablet 128 MG PO (08:01)
[2023-04-21] MEDS: Lisinopril 20 MG Tablet PO (08:02)
[2023-04-21] MEDS: Senna/Docusate Sodium 1 Tablet 2 TABLET PO ×2 (08:03→20:12)
[2023-04-21 09:07] VITALS: BMI 29.1
[2023-04-21] MEDS: Cephalexin 500 MG Capsule 1000 MG PO ×2 (09:39→20:12)
[2023-04-21 19:43] VITALS: BP 94/53; PULSE 75; RESP 16; TEMP 37; O2SAT 96
[2023-04-21] MEDS: oxyCODONE 5 MG Tablet PO (19:57)
[2023-04-21 20:04] VITALS: BMI 29.1
[2023-04-21 20:05] VITALS: PULSE 73; RESP 16; O2SAT 96
[2023-04-21] MEDS: traZODone 100 MG Tablet 50 MG PO (20:12)
[2023-04-21] MEDS: Rosuvastatin 20 MG Tablet PO (20:13)
[2023-04-22] MEDS: oxyCODONE 5 MG Tablet PO ×2 (05:30→19:45)
[2023-04-22 06:00] VITALS: BMI 28.8
[2023-04-22 06:51] LABS: Bedside Glucose 128 mg/dL (74-106)
[2023-04-22 07:16] VITALS: BP 107/64; PULSE 65; RESP 15; TEMP 36.3; O2SAT 93
--- NOTE | 2023-04-22 07:52 | PN_ITS ---
Subjective Subjective Patient seen, examined. She has no new complaints, she has a good appetite, ate all of her breakfast. Objective Data Objective Data Vital Signs: Vital Signs Temp Pulse Resp BP Pulse Ox O2 Del Method 97.4 F L 65 15 107/64 93 Room Air 04/22/23 07:16 04/22/23 07:16 04/22/23 07:16 04/22/23 07:16 04/22/23 07:16 04/22/23 07:16 Oxygen Delivery Method Room Air Weight: 74.6 kg Body Mass Index (BMI) 29.1 Intake & Output: Intake and Output for Last 24 Hours 04/20/23 04/21/23 04/22/23 23:59 23:59 23:59 Intake Total 1850 / 1850 1600 / 1600 150 / 150 Output Total 1400 / 1400 1050 / 1050 450 / 450 Balance 450 / 450 550 / 550 -300 / -300 Lab / Micro Data Attestation: I reviewed the patient's lab results. 04/16/23 05:45 04/16/23 05:45 Labs: Laboratory Results - last 24 hr 04/22/23 06:30: POC Glucose 128 H Physical Exam Const alert General Appearance: cooperative HEENT normocephalic HEENT Narrative: Right sided anterior posterior scalp incision clean, dry, sutures intact. Eyes PERRL and EOMs intact bilaterally Neck supple, no JVD and no carotid bruits Resp normal respiratory effort, normal air movement and clear to auscultation bilaterally Cardio regular rate and regular rhythm GI normal to inspection, nondistended, normoactive bowel sounds, non-tender and non-distended Extremity normal capillary refill General Extremity: Negative for edema Skin no rashes or lesions noted General Skin Exam: no breakdown Psych affect normal Appearance: appropriate Assessment & Plan Assessment/Plan (1) Debility: (2) History of cranioplasty: (3) Hemorrhagic stroke: (4) Hypertension: QUALIFIERS: Hypertension type: primary hypertension Qualified Code(s): I10 - Essential (primary) hypertension (5) Depression: QUALIFIERS: Depression Type: reactive depression Qualified Code(s): F32.9 - Major depressive disorder, single episode, unspecified (6) Diabetes mellitus: (7) Hypothyroidism: (8) Muscle spasm: (9) Hyperlipidemia: (10) Urinary retention: PLAN: Plan 67 year old female with below past medical history 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 * Debility - PT/OT/ST. * Pain - Oxycodone 5mg q6 prn. * Bowel - senna/colace 2 tablets bid, Dulcolax 10mg pr x 1 prn, MOM 30ml po x 1 prn, Soap suds enema x 1 today. * Hypertension - Coreg 6.25mg bid, Lisinopril 20mg daily. * ID prophylaxis - Keflex 1000mg po q12 thru 04/22/2023. * Vitamin D deficiency - D3 50mcg qweek. * Depression - Duloxetine 40mg daily. * Diabetes Mellitus II - Jardiance 10mg daily. * GI prophylaxis - Lactobacillus 1 bid. * Seizure disorder - Keppra 750mg bid. * Hypomagnesemia - Magnesium chloride 128mg daily. * Nausea - Zofran ODT 4mg q6h prn. * GERD - Pantoprazole 40mg daily, * Hypokalemia - KCL 20meq daily. * Hyperlipidemia - Rosuvastatin 20mg qhs. * Insomnia - Trazodone 50mg qhs. Capacity Capacity Assessment Tool Can the patient make a choice & communicate that choice?: Yes Can the patient understand benefits, risks and alternatives?: Yes Can the patient make a logical, rational choice?: Yes Is the choice the patient makes consistent w/ their values?: Yes Is there an impending, emergent risk to the patient?: No Does the patient have an Advance Directive?: Yes Is there a Surrogate Available?: Yes i.e. HCPOA: Yes i.e. close relative (spouse, child, parent, sibling)?: Yes
[2023-04-22] MEDS: Lisinopril 20 MG Tablet PO (08:01)
[2023-04-22] MEDS: DULoxetine Hcl 20 MG Capsule 40 MG PO (08:02)
[2023-04-22] MEDS: Potassium Chloride Oral Tablet 20 MEQ PO (08:02)
[2023-04-22] MEDS: Empagliflozin 10 MG Tablet PO (08:02)
[2023-04-22] MEDS: Cephalexin 500 MG Capsule 1000 MG PO ×2 (09:04→20:07)
[2023-04-22] MEDS: levETIRAcetam 750 MG Tablet PO ×2 (09:05→20:08)
[2023-04-22] MEDS: Senna/Docusate Sodium 1 Tablet 2 TABLET PO ×2 (09:05→20:06)
[2023-04-22] MEDS: Carvedilol 6.25 MG Tablet PO ×2 (09:05→20:08)
[2023-04-22] MEDS: Magnesium Chloride 64 MG Delay Rel.Tablet 128 MG PO (09:05)
[2023-04-22] MEDS: Pantoprazole Sodium 40 MG Tablet PO (09:05)
[2023-04-22 15:22] VITALS: BMI 28.8
[2023-04-22 19:01] VITALS: BP 103/64; PULSE 72; RESP 16; TEMP 36.7; O2SAT 99
[2023-04-22 19:50] VITALS: BMI 28.8
[2023-04-22 20:02] VITALS: PULSE 72; RESP 15; O2SAT 95
[2023-04-22] MEDS: traZODone 100 MG Tablet 50 MG PO (20:08)
[2023-04-22] MEDS: Rosuvastatin 20 MG Tablet PO (20:09)
[2023-04-22 20:55] VITALS: BMI 28.8
--- NOTE | 2023-04-23 06:04 | NURSING ---
pt ambulated around unit x1 assist with no device with nursing staff. Pt required slight cueing with directions. Pt tolerated well.
[2023-04-23 06:29] LABS: Bedside Glucose 99 mg/dL (74-106)
[2023-04-23 07:38] VITALS: BP 115/65; PULSE 59; RESP 16; TEMP 36.2; O2SAT 96
[2023-04-23] MEDS: Senna/Docusate Sodium 1 Tablet 2 TABLET PO ×2 (07:55→21:25)
[2023-04-23] MEDS: Carvedilol 6.25 MG Tablet PO ×2 (07:55→21:25)
[2023-04-23] MEDS: levETIRAcetam 750 MG Tablet PO ×2 (07:55→21:26)
[2023-04-23] MEDS: DULoxetine Hcl 20 MG Capsule 40 MG PO (07:55)
[2023-04-23] MEDS: Lisinopril 20 MG Tablet PO (07:56)
[2023-04-23] MEDS: Empagliflozin 10 MG Tablet PO (07:56)
[2023-04-23] MEDS: Pantoprazole Sodium 40 MG Tablet PO (07:56)
[2023-04-23] MEDS: Magnesium Chloride 64 MG Delay Rel.Tablet 128 MG PO (07:56)
[2023-04-23] MEDS: Potassium Chloride Oral Tablet 20 MEQ PO (07:56)
--- NOTE | 2023-04-23 08:14 | PN_ITS ---
Subjective Subjective Patient seen, examined. She has no new complaints. Left neglect seems improved today. Nursing reports easy distraction. Objective Data Objective Data Vital Signs: Vital Signs Temp Pulse Resp BP Pulse Ox O2 Del Method 97.1 F L 59 L 16 115/65 96 Room Air 04/23/23 07:38 04/23/23 07:38 04/23/23 07:38 04/23/23 07:38 04/23/23 07:38 04/23/23 07:38 Oxygen Delivery Method Room Air Weight: 73.8 kg Body Mass Index (BMI) 28.8 Intake & Output: Intake and Output for Last 24 Hours 04/21/23 04/22/23 04/23/23 23:59 23:59 23:59 Intake Total 1600 / 1600 1710 / 1710 150 / 150 Output Total 1050 / 1050 1250 / 1250 500 / 500 Balance 550 / 550 460 / 460 -350 / -350 Lab / Micro Data Attestation: I reviewed the patient's lab results. 04/16/23 05:45 04/16/23 05:45 Labs: Laboratory Results - last 24 hr 04/23/23 06:08: POC Glucose 99 Physical Exam Const alert General Appearance: cooperative HEENT normocephalic HEENT Narrative: Right sided anterior posterior scalp incision clean, dry, sutures intact. Eyes PERRL and EOMs intact bilaterally Neck supple, no JVD and no carotid bruits Resp normal respiratory effort, normal air movement and clear to auscultation bilaterally Cardio regular rate and regular rhythm GI normal to inspection, nondistended, normoactive bowel sounds, non-tender and non-distended Extremity normal capillary refill General Extremity: Negative for edema Skin no rashes or lesions noted General Skin Exam: no breakdown Neuro Neuro Narrative: Left hemiparesis. 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 * Debility - PT/OT/ST. * Pain - Oxycodone 5mg q6 prn. * Bowel - senna/colace 2 tablets bid, Dulcolax 10mg pr x 1 prn, MOM 30ml po x 1 prn, Soap suds enema x 1 today. * Hypertension - Coreg 6.25mg bid, Lisinopril 20mg daily. * Vitamin D deficiency - D3 50mcg qweek. * Depression - Duloxetine 40mg daily. * Diabetes Mellitus II - Jardiance 10mg daily. * GI prophylaxis - Lactobacillus 1 bid. * Seizure disorder - Keppra 750mg bid. * Hypomagnesemia - Magnesium chloride 128mg daily. * Nausea - Zofran ODT 4mg q6h prn. * GERD - Pantoprazole 40mg daily, * Hypokalemia - KCL 20meq daily. * Hyperlipidemia - Rosuvastatin 20mg qhs. * Insomnia - Trazodone 50mg qhs. Capacity Capacity Assessment Tool Can the patient make a choice & communicate that choice?: Yes Can the patient understand benefits, risks and alternatives?: Yes Can the patient make a logical, rational choice?: Yes Is the choice the patient makes consistent w/ their values?: Yes Is there an impending, emergent risk to the patient?: No Does the patient have an Advance Directive?: Yes Is there a Surrogate Available?: Yes i.e. HCPOA: Yes i.e. close relative (spouse, child, parent, sibling)?: Yes
[2023-04-23 09:11] LABS: Absolute Lymphocyte Count 2.52 X10^3/uL (0.83-4.51); Absolute Neutrophil Count 1.6 X10^3/uL (2.0-7.7); Basophil# 0.05 X10^3/uL; Eosinophil# 0.15 X10^3/uL; Eosinophils% 3.1 % (0-5); Hematocrit 32.9 % (37-47); Hemoglobin 10.2 g/dL (12.0-15.0); Lymphocyte # 2.52 X10^3/ul (0.83-4.51); Lymphocyte % 52.6 % (19-41); Mean Corpuscular Hgb 26.9 pg (27.0-32.0); Mean Corpuscular Volume 86.8 fL (81-99); Mean Platelet Vol. 10.3 fl (6.2-12.0); Monocyte# 0.44 X10^3/uL; Monocyte% 9.2 % (0-10); NRBC Flagged by Analyzer 0 % (0-5); Neutrophil # 1.62 X10^3/uL (2.7-7.7); Neutrophil % 33.9 % (47-70); Platelet Count 329 K/mm3 (150-450); RBC Distribution Width CV 18.8 % (11.6-14.6); RBC Distribution Width SD 60.1 fl (35.1-43.9); Red Blood Count 3.79 M/mm3 (4.2-5.4); White Blood Count 4.8 K/mm3 (4.4-11.0)
[2023-04-23 09:32] LABS: ALB/GLOB Ratio 0.8 RATIO (0.9-2.4); AST(SGOT) 21 U/L (15-37); Alanine Aminotransfer ALT/SGPT 26 U/L (13-56); Albumin, Serum 3.7 g/dL (3.2-5.0); Alkaline Phosphatase 56 U/L (45-117); Anion Gap 3 (5-15); BUN 14 mg/dL (7-18); BUN/Creat Ratio 18.3 RATIO (10-20); Calcium,Total 9.8 mg/dL (8.5-10.1); Chloride 104 mmol/L (98-107); Creatinine, Serum 0.76 mg/dL (0.55-1.02); EST Glomerular Filtration Rate 80 mL/min (>60); Est Glom Filt Rate - Afr Amer 97 mL/min (>60); Estimated Creatinine Clearance 44.54 ml/min; Globulin 4.5 g/dL (2.2-4.2); Glucose 186 mg/dL (74-106); Magnesium 2.2 mg/dL (1.6-2.6); Potassium 3.7 mmol/L (3.5-5.1); Protein, Total 8.2 g/dL (6.4-8.2); Sodium Level 137 mmol/L (136-145)
[2023-04-23 10:00] VITALS: PULSE 62
[2023-04-23 16:43] VITALS: BMI 28.8
[2023-04-23 19:30] VITALS: BP 105/66; PULSE 66; RESP 18; TEMP 36.8; O2SAT 96
[2023-04-23 21:03] VITALS: BMI 28.8
[2023-04-23] MEDS: traZODone 100 MG Tablet 50 MG PO (21:25)
[2023-04-23] MEDS: Rosuvastatin 20 MG Tablet PO (21:26)
[2023-04-24 06:25] LABS: Bedside Glucose 118 mg/dL (74-106)
[2023-04-24] MEDS: Empagliflozin 10 MG Tablet PO (09:05)
[2023-04-24] MEDS: Lisinopril 20 MG Tablet PO (09:05)
[2023-04-24] MEDS: Carvedilol 6.25 MG Tablet PO ×2 (09:05→21:01)
[2023-04-24] MEDS: DULoxetine Hcl 20 MG Capsule 40 MG PO (09:05)
[2023-04-24] MEDS: Cholecalciferol (VIT D3) 25 MCG TABLET (1,000 UNITS) 50 MCG PO (09:05)
[2023-04-24] MEDS: levETIRAcetam 750 MG Tablet PO ×2 (09:05→21:01)
[2023-04-24] MEDS: Pantoprazole Sodium 40 MG Tablet PO (09:05)
[2023-04-24] MEDS: Magnesium Chloride 64 MG Delay Rel.Tablet 128 MG PO (09:05)
[2023-04-24] MEDS: Potassium Chloride Oral Tablet 20 MEQ PO (09:05)
[2023-04-24 09:11] VITALS: BP 115/69; PULSE 69; RESP 17; TEMP 36.4; O2SAT 96
[2023-04-24 14:37] VITALS: BMI 28.8
--- NOTE | 2023-04-24 15:32 | EX.PCM.PN.RE ---
Subjective Subjective Patient was admitted for daily rehab following a hospital stay for infected cranial hardware and hematoma evacuation with implant placement. No events overnight. The patient feels that overall she is doing well and feels that she is benefitting from therapy. She reports mild pain in her left arm, which she describes as aching. She was provided some exercises by therapy and does find they have been helping. She is eating well and moving her bowels. She has no questions or concerns at this time. She is motivated to go home and continue to progress. Objective Data Objective Data Vital Signs: Vital Signs Temp Pulse Resp BP Pulse Ox O2 Del Method 97.6 F L 69 17 115/69 96 Room Air 04/24/23 09:11 04/24/23 09:11 04/24/23 09:11 04/24/23 09:11 04/24/23 09:11 04/24/23 09:11 Oxygen Delivery Method Room Air Weight: 162 lb 11.218 oz Body Mass Index (BMI) 28.8 Intake & Output: Intake and Output for Last 24 Hours 04/22/23 04/23/23 04/24/23 23:59 23:59 23:59 Intake Total 1710 / 1710 1470 / 1470 1020 / 1020 Output Total 1250 / 1250 500 / 500 1000 / 1000 Balance 460 / 460 970 / 970 20 / 20 Lab / Micro Data Attestation: I reviewed the patient's lab results. 04/23/23 08:40 04/23/23 08:40 Labs: Laboratory Results - last 24 hr 04/24/23 06:07: POC Glucose 118 H Indicators for Scoring Admitted with or Primary Diagnosis of CVA/Stroke: No Hx of CVA/Stroke: Yes Modified [place] Score MRS Score at time of Evaluation: 4-Moderate/severe disability Physical Exam Const alert, oriented x3, no apparent distress and well nourished Constitutional Narrative: laying in bed General Appearance: cooperative and comfortable; Negative for in distress, ill appearing or diaphoretic Orientation / Consciousness: awake, oriented to person, oriented to place and oriented to time Exam Limitations: Negative for altered mental status HEENT normocephalic, head/scalp atraumatic, moist oral mucous membranes and oropharynx normal Head and Scalp: normocephalic and atraumatic Face and Sinus: normal facial exam Eyes General Eye: normal appearance of both eyes Chest inspection of chest normal Chest: abnormal inspection of the chest and symmetrical chest wall rise Resp normal respiratory effort, normal air movement, no use of accessory muscles and clear to auscultation bilaterally Effort and Inspection: able to speak in complete sentences and symmetric chest movement; Negative for respiratory distress or audible wheezes Auscultation: clear to auscultation bilaterally Cardio regular rate, regular rhythm and no murmurs Rate: regular rate Rhythm: regular rhythm Heart Sounds: Negative for murmur GI normal to inspection, nondistended, normoactive bowel sounds, soft to palpation, non-tender and non-distended Auscultation: normoactive bowel sounds Palpation: soft; Negative for tender or guarding Extremity normal to inspection Extremity Narrative: left wrist brace in place General Extremity: Negative for edema Skin no rashes or lesions noted General Skin Exam: no breakdown Lesions: no lesions Rashes: no rashes Neuro oriented x3 Sensorium / Orientation: awake, alert, oriented to person, oriented to place and oriented to time Speech: speech normal Psych mental status grossly normal, cooperative, affect normal and speech normal Appearance: grossly normal Attitude: calm Assessment & Plan Assessment/Plan (1) Debility: PLAN: Will continue with PT/OT and follow up on findings and recommendations. Goal for discharge home with outpatient therapy when able. Continue with PRN pain management, bowel regimen and fall precautions. (2) History of cranioplasty: PLAN: Patient has completed antibiotic therapy and is doing well. She will follow up with neurology upon discharge from the inpatient rehab. (3) Hemorrhagic stroke: PLAN: Occurred in June. Continue with statin. (4) Left hemiparesis: PLAN: Will continue with PT as above and monitor progress. She does feel the exercises are helping. (5) Diabetes mellitus: QUALIFIERS: Diabetes mellitus type: type 2 Diabetes mellitus senior living insulin use: without senior living use Diabetes mellitus complication status: without complication Qualified Code(s): E11.9 - Type 2 diabetes mellitus without complications PLAN: Continue with glucose monitoring, diabetic diet and home jardiance. (6) Hypertension: QUALIFIERS: Hypertension type: primary hypertension Qualified Code(s): I10 - Essential (primary) hypertension PLAN: Blood pressure shows good control. Will continue current management and monitor. (7) Partial motor seizures: PLAN: Continue with home Keppra. Charges/Coding Visit Charges Inpatient E&M: 85304 Subs Hosp L2
[2023-04-24 19:23] VITALS: BP 103/57; PULSE 70; RESP 18; TEMP 36.6; O2SAT 93
[2023-04-24 21:00] VITALS: BP 107/56; PULSE 68; O2SAT 95
[2023-04-24] MEDS: traZODone 100 MG Tablet 50 MG PO (21:01)
[2023-04-24] MEDS: Rosuvastatin 20 MG Tablet PO (21:01)
[2023-04-24] MEDS: Senna/Docusate Sodium 1 Tablet 2 TABLET PO (21:01)
[2023-04-24] MEDS: oxyCODONE 5 MG Tablet PO (21:14)
[2023-04-25 01:53] VITALS: BMI 28.8
[2023-04-25 06:28] LABS: Bedside Glucose 132 mg/dL (74-106)
[2023-04-25] MEDS: Magnesium Chloride 64 MG Delay Rel.Tablet 128 MG PO (07:59)
[2023-04-25] MEDS: Carvedilol 6.25 MG Tablet PO ×2 (08:00→21:00)
[2023-04-25] MEDS: Lisinopril 20 MG Tablet PO (08:00)
[2023-04-25] MEDS: Senna/Docusate Sodium 1 Tablet 2 TABLET PO ×2 (08:00→21:00)
[2023-04-25] MEDS: DULoxetine Hcl 20 MG Capsule 40 MG PO (08:00)
[2023-04-25] MEDS: Potassium Chloride Oral Tablet 20 MEQ PO (08:00)
[2023-04-25] MEDS: Pantoprazole Sodium 40 MG Tablet PO (08:00)
[2023-04-25] MEDS: Empagliflozin 10 MG Tablet PO (08:00)
[2023-04-25] MEDS: levETIRAcetam 750 MG Tablet PO ×2 (08:00→21:00)
--- NOTE | 2023-04-25 08:20 | PN.REHAB_ITS ---
Subjective Subjective Patient was admitted for daily rehab following a hospital stay for infected cranial hardware and hematoma evacuation with implant placement. She was seen today on TEAM rounds. No events overnight. She does still complain of some pain in her left arm, but continues to feel that the pain medications and exercises are helping. Her glucose level has been well controlled. Her left arm is being kept elevated and she will continue to wear the wrist brace to help with swelling. Both occupational and physical therapy note great improvement since her admission. She was able to walk 550 ft. yesterday. Tomorrow, she will attempt to make dog biscuits. Her cognitive impairment has also improved since her admission. She has no questions or concerns today. She is still eating well. She believes her last bowel movement was about 2 days ago. She is passing gas and doesn't feel constipated. Awaiting insurance update for discharge date. Objective Data Objective Data Vital Signs: Vital Signs Temp Pulse Resp BP Pulse Ox O2 Del Method 98 F 68 18 107/56 L 95 Room Air 04/24/23 19:23 04/24/23 21:00 04/24/23 19:23 04/24/23 21:00 04/24/23 21:00 04/24/23 21:00 Oxygen Delivery Method Room Air Weight: 162 lb 11.218 oz Body Mass Index (BMI) 28.8 Intake & Output: Intake and Output for Last 24 Hours 04/23/23 04/24/23 04/25/23 23:59 23:59 23:59 Intake Total 1470 / 1470 1500 / 1500 Output Total 500 / 500 1200 / 1550 1200 / 1200 Balance 970 / 970 300 / -50 -1200 / -1200 Lab / Micro Data Attestation: I reviewed the patient's lab results. 04/23/23 08:40 04/23/23 08:40 Labs: Laboratory Results - last 24 hr 04/25/23 06:10: POC Glucose 132 H Indicators for Scoring Admitted with or Primary Diagnosis of CVA/Stroke: No Hx of CVA/Stroke: Yes Modified John Score MRS Score at time of Evaluation: 4-Moderate/severe disability Physical Exam Const alert, oriented x3, no apparent distress and well nourished Constitutional Narrative: Sitting up in the chair General Appearance: cooperative and comfortable; Negative for in distress, ill a ppearing or diaphoretic Orientation / Consciousness: awake, oriented to person, oriented to place and oriented to time Exam Limitations: Negative for altered mental status HEENT normocephalic, head/scalp atraumatic, moist oral mucous membranes and oropharynx normal Head and Scalp: normocephalic, atraumatic and other Other Details: Post operative scar healing well without erythema or drainage. Sutures intact. Face and Sinus: normal facial exam Eyes General Eye: normal appearance of both eyes Chest inspection of chest normal Chest: abnormal inspection of the chest and symmetrical chest wall rise Resp normal respiratory effort, normal air movement, no use of accessory muscles and clear to auscultation bilaterally Effort and Inspection: able to speak in complete sentences and symmetric chest movement; Negative for respiratory distress or audible wheezes Auscultation: clear to auscultation bilaterally Cardio regular rate, regular rhythm and no murmurs Rate: regular rate Rhythm: regular rhythm Heart Sounds: Negative for murmur GI normal to inspection, nondistended, normoactive bowel sounds, soft to palpation, non-tender and non-distended Auscultation: normoactive bowel sounds Palpation: soft; Negative for tender or guarding Extremity normal to inspection Extremity Narrative: left wrist brace in place General Extremity: Negative for edema Skin no rashes or lesions noted General Skin Exam: no breakdown Lesions: no lesions Rashes: no rashes Neuro oriented x3 Sensorium / Orientation: awake, alert, oriented to person, oriented to place and oriented to time Speech: speech normal Psych mental status grossly normal, cooperative, affect normal and speech normal Appearance: grossly normal Attitude: calm Assessment & Plan Assessment/Plan (1) Debility: PLAN: Will continue with PT/OT and follow up on findings and recommendations. Goal for discharge home with outpatient therapy versus C when able. Continue with PRN pain management, bowel regimen and fall precautions. (2) History of cranioplasty: PLAN: Patient has completed antibiotic therapy and is doing well. She will follow up with neurology upon discharge from the inpatient rehab. Incision looks good today without any signs of ongoing infection. (3) Hemorrhagic stroke: PLAN: Occurred in June. Continue with statin. (4) Left hemiparesis: PLAN: Will continue with PT as above and monitor progress. She does feel the exercises are helping. (5) Diabetes mellitus: QUALIFIERS: Diabetes mellitus complication status: without complication Diabetes mellitus correction insulin use: without correction use Diabetes mellitus type: type 2 Qualified Code(s): E11.9 - Type 2 diabetes mellitus without complications PLAN: Continue with glucose monitoring, diabetic diet and home jardiance. Glucose this morning was 132. (6) Hypertension: QUALIFIERS: Hypertension type: primary hypertension Qualified Code(s): I10 - Essential (primary) hypertension PLAN: Blood pressure shows good control. Will continue current management and monitor. (7) Partial motor seizures: PLAN: Continue with home Keppra. Charges/Coding Visit Charges Inpatient E&M: 07272 Subs Hosp L2
[2023-04-25 10:00] VITALS: BP 130/59; PULSE 67; RESP 16; TEMP 36.5; O2SAT 93
--- NOTE | 2023-04-25 11:38 | CASEMGMT ---
Social Work IDT met with patient and via conference call for Team meeting. Discussed patient's progress in PT/OT/ST/SN. Educated to [facility] insurance with [employer] 04/25 and continued stay is not guaranteed with each review. Cautioned insurance may issue DC. Pt states plan is to return home with assistance. Pt prefers to continue with [facility] PT/OT/ST. IDT agreed. No DME needs. SW will continue to follow. Nadia Reynolds, [employer] TE[employer]
[2023-04-25 14:57] VITALS: BMI 28.8
[2023-04-25 19:35] VITALS: BP 104/60; PULSE 61; RESP 17; TEMP 36.9; O2SAT 97
[2023-04-25] MEDS: Rosuvastatin 20 MG Tablet PO (21:00)
[2023-04-25] MEDS: traZODone 100 MG Tablet 50 MG PO (21:04)
[2023-04-25] MEDS: oxyCODONE 5 MG Tablet PO (21:04)
[2023-04-25 21:52] VITALS: BMI 28.8
[2023-04-26 07:18] LABS: Bedside Glucose 134 mg/dL (74-106)
[2023-04-26] MEDS: Magnesium Chloride 64 MG Delay Rel.Tablet 128 MG PO (07:54)
[2023-04-26] MEDS: Carvedilol 6.25 MG Tablet PO ×2 (07:54→21:18)
[2023-04-26] MEDS: Lisinopril 20 MG Tablet PO (07:54)
[2023-04-26] MEDS: Pantoprazole Sodium 40 MG Tablet PO (07:54)
[2023-04-26] MEDS: levETIRAcetam 750 MG Tablet PO ×2 (07:54→21:18)
[2023-04-26] MEDS: Senna/Docusate Sodium 1 Tablet 2 TABLET PO ×2 (07:54→21:17)
[2023-04-26] MEDS: DULoxetine Hcl 20 MG Capsule 40 MG PO (07:55)
[2023-04-26] MEDS: Potassium Chloride Oral Tablet 20 MEQ PO (07:55)
[2023-04-26] MEDS: Empagliflozin 10 MG Tablet PO (07:55)
[2023-04-26 08:05] VITALS: BP 128/68; PULSE 65; RESP 16; TEMP 36.4; O2SAT 95
[2023-04-26] MEDS: oxyCODONE 5 MG Tablet PO (11:30)
[2023-04-26 14:36] LABS: Bacteria 0 SEEN /hpf (None Seen); Mucous, Urine 0 SEEN /hpf (<or=2+); Squamous Epithelial Cells - UA 0 SEEN /hpf (5-10)
[2023-04-26 14:42] LABS: Color, Urine Yellow (Yellow); Glucose, Dipstick 1000 mg/dl (Normal); Ketone-Dipstick Negative (Negative); Leukocyte Esterase-Dipstick 500 /ul (Negative); Nitrite-Dipstick Negative (Negative); Occult Blood-Urine 250 /ul (Negative); Protein-Dipstick 100 mg/dl (Negative); Specific Gravity, Urine 1.015 (1.002-1.030); Urine Bilirubin Dipstick Negative (Negative); Urine Clarity Sl. Cloudy (Clear); Urine Urobilinogen Normal (Normal)
[2023-04-26 14:48] LABS: Red Blood Cells-Urine > 100 SEEN /hpf (0-5); White Blood Cells >100 SEEN /hpf (0-5)
[2023-04-26 17:00] VITALS: BMI 28.8
[2023-04-26] MEDS: Nitrofurantoin Macrocrystals 100 MG Capsule PO (17:37)
[2023-04-26 20:30] VITALS: BP 114/60; PULSE 60; RESP 16; TEMP 36.5; O2SAT 97
[2023-04-26] MEDS: traZODone 100 MG Tablet 50 MG PO (21:18)
[2023-04-26] MEDS: Rosuvastatin 20 MG Tablet PO (21:18)
[2023-04-27 04:44] VITALS: BMI 28.8
[2023-04-27 05:46] LABS: Bedside Glucose 127 mg/dL (74-106)
[2023-04-27 07:28] VITALS: BP 112/59; PULSE 79; RESP 17; TEMP 36.4; O2SAT 96
[2023-04-27] MEDS: Nitrofurantoin Macrocrystals 100 MG Capsule PO ×2 (08:48→17:40)
[2023-04-27] MEDS: levETIRAcetam 750 MG Tablet PO ×2 (08:48→19:52)
[2023-04-27] MEDS: Pantoprazole Sodium 40 MG Tablet PO (08:48)
[2023-04-27] MEDS: Carvedilol 6.25 MG Tablet PO ×2 (08:48→19:52)
[2023-04-27] MEDS: Potassium Chloride Oral Tablet 20 MEQ PO (08:48)
[2023-04-27] MEDS: Empagliflozin 10 MG Tablet PO (08:48)
[2023-04-27] MEDS: DULoxetine Hcl 20 MG Capsule 40 MG PO (08:48)
[2023-04-27] MEDS: Lisinopril 20 MG Tablet PO (08:48)
[2023-04-27] MEDS: Senna/Docusate Sodium 1 Tablet 2 TABLET PO ×2 (08:48→19:51)
[2023-04-27] MEDS: Magnesium Chloride 64 MG Delay Rel.Tablet 128 MG PO (08:48)
[2023-04-27] MEDS: oxyCODONE 5 MG Tablet PO (10:31)
[2023-04-27 14:07] VITALS: BMI 28.8
[2023-04-27 19:45] VITALS: BP 98/53; PULSE 68; RESP 14; TEMP 36.8; O2SAT 95
[2023-04-27] MEDS: traZODone 100 MG Tablet 50 MG PO (19:51)
[2023-04-27] MEDS: Rosuvastatin 20 MG Tablet PO (19:52)
[2023-04-27 23:25] VITALS: BMI 28.8
[2023-04-28] MEDS: oxyCODONE 5 MG Tablet PO ×2 (01:41→19:31)
[2023-04-28 06:48] LABS: Bedside Glucose 102 mg/dL (74-106)
[2023-04-28 08:37] VITALS: BP 127/74; PULSE 60; RESP 14; TEMP 36.2; O2SAT 92
[2023-04-28] MEDS: Empagliflozin 10 MG Tablet PO (08:54)
[2023-04-28] MEDS: Potassium Chloride Oral Tablet 20 MEQ PO (08:55)
[2023-04-28] MEDS: Nitrofurantoin Macrocrystals 100 MG Capsule PO (08:55)
[2023-04-28] MEDS: Pantoprazole Sodium 40 MG Tablet PO (08:55)
[2023-04-28] MEDS: Lisinopril 20 MG Tablet PO (08:55)
[2023-04-28] MEDS: Magnesium Chloride 64 MG Delay Rel.Tablet 128 MG PO (08:56)
[2023-04-28] MEDS: levETIRAcetam 750 MG Tablet PO ×2 (08:56→19:34)
[2023-04-28] MEDS: Senna/Docusate Sodium 1 Tablet 2 TABLET PO ×2 (08:56→19:34)
[2023-04-28] MEDS: DULoxetine Hcl 20 MG Capsule 40 MG PO (08:57)
[2023-04-28] MEDS: Carvedilol 6.25 MG Tablet PO ×2 (08:57→19:33)
[2023-04-28] MEDS: Piperacil/Tazobactam 3.375 GM in 0.9% Normal Saline (50mL MB+) 50 ML IV ×2 (11:26→19:49)
[2023-04-28 14:14] VITALS: BMI 28.8
--- NOTE | 2023-04-28 15:24 | NURSING ---
pt walked around unit 3 times with staff.
[2023-04-28] MEDS: Rosuvastatin 20 MG Tablet PO (19:32)
[2023-04-28] MEDS: traZODone 100 MG Tablet 50 MG PO (19:32)
[2023-04-28 19:40] VITALS: BP 106/58; PULSE 65; RESP 12; TEMP 36.6; O2SAT 98
[2023-04-29 05:00] VITALS: BMI 28.8
[2023-04-29 06:00] VITALS: BMI 28.7
[2023-04-29] MEDS: Piperacil/Tazobactam 3.375 GM in 0.9% Normal Saline (50mL MB+) 50 ML IV ×3 (06:17→20:43)
[2023-04-29 06:53] LABS: Bedside Glucose 137 mg/dL (74-106)
--- NOTE | 2023-04-29 07:29 | PN.REHAB_ITS ---
Subjective Subjective Patient seen, examined. She has no new complaints. P. Aeruginosa UTI treated with Zosyn IV, due to allergies, drug interactions. She feels urinary symptoms are improved. Objective Data Objective Data Vital Signs: Vital Signs Temp Pulse Resp BP Pulse Ox O2 Del Method 97.9 F 65 12 106/58 L 98 Room Air 04/28/23 19:40 04/28/23 19:40 04/28/23 19:40 04/28/23 19:40 04/28/23 19:40 04/28/23 19:40 Oxygen Delivery Method Room Air Weight: 73.8 kg Body Mass Index (BMI) 28.8 Intake & Output: Intake and Output for Last 24 Hours 04/27/23 04/28/23 04/29/23 23:59 23:59 23:59 Intake Total 1580 / 1580 2880 / 2880 100 / 100 Output Total 1950 / 2850 2049 / 2049 Balance -370 / -1270 830 / 830 100 / 100 Lab / Micro Data 04/23/23 08:40 04/23/23 08:40 Labs: Laboratory Results - last 24 hr 04/29/23 06:31: POC Glucose 137 H Micro: Microbiology 04/26/23 14:25 Urine, Clean Catch Urine Culture - Final Pseudomonas aeruginosa Indicators for Scoring Admitted with or Primary Diagnosis of CVA/Stroke: No Hx of CVA/Stroke: Yes Modified [place] Score MRS Score at time of Evaluation: 4-Moderate/severe disability Physical Exam Const alert, oriented x3, no apparent distress and well nourished Constitutional Narrative: Sitting up in the chair General Appearance: cooperative and comfortable; Negative for in distress, ill appearing or diaphoretic Orientation / Consciousness: awake, oriented to person, oriented to place and oriented to time Exam Limitations: Negative for altered mental status HEENT normocephalic, head/scalp atraumatic, moist oral mucous membranes and oropharynx normal HEENT Narrative: Scalp incision clean, dry, intact. Head and Scalp: normocephalic, atraumatic and other Other Details: Post operative scar healing well without erythema or drainage. Sutures intact. Face and Sinus: normal facial exam Eyes PERRL and EOMs intact bilaterally General Eye: normal appearance of both eyes Neck supple, no JVD and no carotid bruits Chest inspection of chest normal Chest: abnormal inspection of the chest and symmetrical chest wall rise Resp normal respiratory effort, normal air movement, no use of accessory muscles and clear to auscultation bilaterally Effort and Inspection: able to speak in complete sentences and symmetric chest movement; Negative for respiratory distress or audible wheezes Auscultation: clear to auscultation bilaterally Cardio regular rate, regular rhythm and no murmurs Rate: regular rate Rhythm: regular rhythm Heart Sounds: Negative for murmur GI normal to inspection, nondistended, normoactive bowel sounds, soft to palpation, non-tender and non-distended Auscultation: normoactive bowel sounds Palpation: soft; Negative for tender or guarding Extremity normal to inspection Extremity Narrative: left wrist brace in place General Extremity: Negative for edema Skin no rashes or lesions noted General Skin Exam: no breakdown Lesions: no lesions Rashes: no rashes Neuro oriented x3 Neuro Narrative: Left hemiparesis. Sensorium / Orientation: awake, alert, oriented to person, oriented to place and oriented to time Speech: speech normal Psych mental status grossly normal, cooperative, affect normal and speech normal Appearance: grossly normal Attitude: calm Assessment & Plan Assessment/Plan (1) Debility: (2) History of cranioplasty: (3) Hemorrhagic stroke: (4) Hypertension: QUALIFIERS: Hypertension type: primary hypertension Qualified Code(s): I10 - Essential (primary) hypertension (5) Depression: QUALIFIERS: Depression Type: reactive depression Qualified Code(s): F32.9 - Major depressive disorder, single episode, unspecified (6) Diabetes mellitus: QUALIFIERS: Diabetes mellitus type: type 2 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 * Debility - PT/OT/ST. * Pain - Oxycodone 5mg q6 prn. * Bowel - senna/colace 2 tablets bid, Dulcolax 10mg pr x 1 prn, MOM 30ml po x 1 prn, Soap suds enema x 1 today. * Hypertension - Coreg 6.25mg bid, Lisinopril 20mg daily. * Vitamin D deficiency - D3 50mcg qweek. * Depression - Duloxetine 40mg daily. * Diabetes Mellitus II - Jardiance 10mg daily. * GI prophylaxis - Lactobacillus 1 bid. * Seizure disorder - Keppra 750mg bid. * Hypomagnesemia - Magnesium chloride 128mg daily. * Nausea - Zofran ODT 4mg q6h prn. * GERD - Pantoprazole 40mg daily, * Hypokalemia - KCL 20meq daily. * Hyperlipidemia - Rosuvastatin 20mg qhs. * Insomnia - Trazodone 50mg qhs. * P. Aeruginosa uti - Zosyn 3.375gm iv q8 thru 05/04/2023. Capacity Capacity Assessment Tool Can the patient make a choice & communicate that choice?: Yes Can the patient understand benefits, risks and alternatives?: Yes Can the patient make a logical, rational choice?: Yes Is the choice the patient makes consistent w/ their values?: Yes Is there an impending, emergent risk to the patient?: No Does the patient have an Advance Directive?: Yes Is there a Surrogate Available?: Yes i.e. HCPOA: Yes i.e. close relative (spouse, child, parent, sibling)?: Yes
[2023-04-29] MEDS: Potassium Chloride Oral Tablet 20 MEQ PO (07:47)
[2023-04-29] MEDS: Lisinopril 20 MG Tablet PO (07:47)
[2023-04-29] MEDS: Senna/Docusate Sodium 1 Tablet 2 TABLET PO ×2 (07:47→20:42)
[2023-04-29] MEDS: Pantoprazole Sodium 40 MG Tablet PO (07:47)
[2023-04-29] MEDS: Empagliflozin 10 MG Tablet PO (07:48)
[2023-04-29] MEDS: DULoxetine Hcl 20 MG Capsule 40 MG PO (07:48)
[2023-04-29] MEDS: levETIRAcetam 750 MG Tablet PO ×2 (07:48→20:42)
[2023-04-29] MEDS: Carvedilol 6.25 MG Tablet PO (07:49)
[2023-04-29] MEDS: Magnesium Chloride 64 MG Delay Rel.Tablet 128 MG PO (07:49)
[2023-04-29 08:06] VITALS: BP 96/60; PULSE 75; RESP 16; TEMP 36.9; O2SAT 96
--- NOTE | 2023-04-29 11:01 | NURSING ---
Addendum entered by Marybel Woods 04/29/23 16:15: Received call from Monica at Dr Pavon office. They request a call back after pt's insurance update on 05/01. Original Note: left message with Dr Lyle office to see if sutures can be removed will pt is on rehab
[2023-04-29] MEDS: 0.9% Saline Lock 10 ML Syringe IV ×2 (14:28→20:43)
[2023-04-29] MEDS: 0.9% Normal Saline (250mL Bag) 250 ML 15 ML IV (14:28)
[2023-04-29 14:36] VITALS: BMI 28.7
[2023-04-29 19:43] VITALS: BP 109/62; PULSE 68; RESP 18; TEMP 36.9; O2SAT 94
[2023-04-29 20:40] VITALS: BP 99/59; PULSE 61
[2023-04-29] MEDS: traZODone 100 MG Tablet 50 MG PO (20:41)
[2023-04-29] MEDS: Rosuvastatin 20 MG Tablet PO (20:42)
[2023-04-29] MEDS: oxyCODONE 5 MG Tablet PO (20:43)
[2023-04-29 21:51] VITALS: BMI 28.7
[2023-04-30] MEDS: Piperacil/Tazobactam 3.375 GM in 0.9% Normal Saline (50mL MB+) 50 ML IV ×3 (06:04→21:08)
[2023-04-30 07:05] LABS: Bedside Glucose 117 mg/dL (74-106)
[2023-04-30 07:49] VITALS: BP 94/57; PULSE 65; RESP 16; TEMP 36.5; O2SAT 94
--- NOTE | 2023-04-30 08:29 | PN.REHAB_ITS ---
Subjective Subjective Patient seen. She is making mary cookies without mary today. She has no new complaints. Her urinary symptoms have resolved. Objective Data Objective Data Vital Signs: Vital Signs Temp Pulse Resp BP Pulse Ox O2 Del Method 97.7 F L 65 16 94/57 L 94 Room Air 04/30/23 07:49 04/30/23 07:49 04/30/23 07:49 04/30/23 07:49 04/30/23 07:49 04/30/23 07:49 Oxygen Delivery Method Room Air Weight: 73.6 kg Body Mass Index (BMI) 28.7 Intake & Output: Intake and Output for Last 24 Hours 04/28/23 04/29/23 04/30/23 23:59 23:59 23:59 Intake Total 2880 / 2880 981 / 981 50 / 50 Output Total 2049 / 2049 150 / 150 Balance 830 / 830 831 / 831 50 / 50 Lab / Micro Data Attestation: I reviewed the patient's lab results. 04/23/23 08:40 04/23/23 08:40 Labs: Laboratory Results - last 24 hr 04/30/23 06:19: POC Glucose 117 H Micro: Microbiology 04/26/23 14:25 Urine, Clean Catch Urine Culture - Final Pseudomonas aeruginosa Indicators for Scoring Admitted with or Primary Diagnosis of CVA/Stroke: No Hx of CVA/Stroke: Yes Modified [place] Score MRS Score at time of Evaluation: 4-Moderate/severe disability Physical Exam Const alert, oriented x3, no apparent distress and well nourished Constitutional Narrative: Sitting up in the chair General Appearance: cooperative and comfortable; Negative for in distress, ill appearing or diaphoretic Orientation / Consciousness: awake, oriented to person, oriented to place and or iented to time Exam Limitations: Negative for altered mental status HEENT normocephalic, head/scalp atraumatic, moist oral mucous membranes and oropharynx normal HEENT Narrative: Scalp incision clean, dry, intact. Head and Scalp: normocephalic, atraumatic and other Other Details: Post operative scar healing well without erythema or drainage. Sutures intact. Face and Sinus: normal facial exam Eyes PERRL and EOMs intact bilaterally General Eye: normal appearance of both eyes Neck supple, no JVD and no carotid bruits Chest inspection of chest normal Chest: abnormal inspection of the chest and symmetrical chest wall rise Resp normal respiratory effort, normal air movement, no use of accessory muscles and clear to auscultation bilaterally Effort and Inspection: able to speak in complete sentences and symmetric chest movement; Negative for respiratory distress or audible wheezes Auscultation: clear to auscultation bilaterally Cardio regular rate, regular rhythm and no murmurs Rate: regular rate Rhythm: regular rhythm Heart Sounds: Negative for murmur GI normal to inspection, nondistended, normoactive bowel sounds, soft to palpation, non-tender and non-distended Auscultation: normoactive bowel sounds Palpation: soft; Negative for tender or guarding Extremity normal to inspection Extremity Narrative: left wrist brace in place General Extremity: Negative for edema Skin no rashes or lesions noted General Skin Exam: no breakdown Lesions: no lesions Rashes: no rashes Neuro oriented x3 Neuro Narrative: Left hemiparesis. Sensorium / Orientation: awake, alert, oriented to person, oriented to place and oriented to time Speech: speech normal Psych mental status grossly normal, cooperative, affect normal and speech normal Appearance: grossly normal Attitude: calm Assessment & Plan Assessment/Plan (1) Debility: (2) History of cranioplasty: (3) Hemorrhagic stroke: (4) Hypertension: QUALIFIERS: Hypertension type: primary hypertension Qualified Code(s): I10 - Essential (primary) hypertension (5) Depression: QUALIFIERS: Depression Type: reactive depression Qualified Code(s): F32.9 - Major depressive disorder, single episode, unspecified (6) Diabetes mellitus: QUALIFIERS: Diabetes mellitus type: type 2 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 * Debility - PT/OT/ST. * Pain - Oxycodone 5mg q6 prn. * Bowel - senna/colace 2 tablets bid, Dulcolax 10mg pr x 1 prn, MOM 30ml po x 1 prn. * Hypertension - Coreg 6.25mg bid, Lisinopril 20mg daily. * Vitamin D deficiency - D3 50mcg qweek. * Depression - Duloxetine 40mg daily. * Diabetes Mellitus II - Jardiance 10mg daily. * GI prophylaxis - Lactobacillus 1 bid. * Seizure disorder - Keppra 750mg bid. * Hypomagnesemia - Magnesium chloride 128mg daily. * Nausea - Zofran ODT 4mg q6h prn. * GERD - Pantoprazole 40mg daily, * Hypokalemia - KCL 20meq daily. * Hyperlipidemia - Rosuvastatin 20mg qhs. * Insomnia - Trazodone 50mg qhs. * P. Aeruginosa uti - Zosyn 3.375gm iv q8 thru 05/04/2023, urinary symptoms resolved.
[2023-04-30] MEDS: Potassium Chloride Oral Tablet 20 MEQ PO (08:57)
[2023-04-30] MEDS: levETIRAcetam 750 MG Tablet PO ×2 (08:57→21:02)
[2023-04-30] MEDS: Senna/Docusate Sodium 1 Tablet 2 TABLET PO ×2 (08:57→21:02)
[2023-04-30] MEDS: Magnesium Chloride 64 MG Delay Rel.Tablet 128 MG PO (08:57)
[2023-04-30] MEDS: Pantoprazole Sodium 40 MG Tablet PO (08:57)
[2023-04-30] MEDS: DULoxetine Hcl 20 MG Capsule 40 MG PO (08:58)
[2023-04-30] MEDS: Empagliflozin 10 MG Tablet PO (08:58)
[2023-04-30] MEDS: Carvedilol 6.25 MG Tablet PO ×2 (09:03→21:02)
[2023-04-30] MEDS: Lisinopril 20 MG Tablet PO (09:03)
[2023-04-30 13:18] VITALS: BMI 28.7
[2023-04-30] MEDS: 0.9% Saline Lock 10 ML Syringe IV ×2 (14:13→21:09)
[2023-04-30 20:04] VITALS: BP 102/57; PULSE 66; RESP 16; TEMP 36.6; O2SAT 97
[2023-04-30] MEDS: Rosuvastatin 20 MG Tablet PO (21:02)
[2023-04-30] MEDS: traZODone 100 MG Tablet 50 MG PO (21:02)
[2023-04-30] MEDS: oxyCODONE 5 MG Tablet PO (21:21)
[2023-05-01 04:37] VITALS: BMI 28.7
[2023-05-01] MEDS: Piperacil/Tazobactam 3.375 GM in 0.9% Normal Saline (50mL MB+) 50 ML IV ×3 (05:34→21:07)
[2023-05-01] MEDS: 0.9% Normal Saline 250 ML IV.SOLN. IV (05:34)
[2023-05-01 06:22] LABS: Bedside Glucose 114 mg/dL (74-106)
[2023-05-01] MEDS: Cholecalciferol (VIT D3) 25 MCG TABLET (1,000 UNITS) 50 MCG PO (07:32)
[2023-05-01] MEDS: Pantoprazole Sodium 40 MG Tablet PO (07:32)
[2023-05-01] MEDS: Carvedilol 6.25 MG Tablet PO ×2 (07:32→20:15)
[2023-05-01] MEDS: Lisinopril 20 MG Tablet PO (07:32)
[2023-05-01] MEDS: DULoxetine Hcl 20 MG Capsule 40 MG PO (07:32)
[2023-05-01] MEDS: Magnesium Chloride 64 MG Delay Rel.Tablet 128 MG PO (07:33)
[2023-05-01] MEDS: levETIRAcetam 750 MG Tablet PO ×2 (07:33→20:15)
[2023-05-01] MEDS: Potassium Chloride Oral Tablet 20 MEQ PO (07:33)
[2023-05-01] MEDS: Senna/Docusate Sodium 1 Tablet 2 TABLET PO ×2 (07:33→20:15)
[2023-05-01] MEDS: Empagliflozin 10 MG Tablet PO (07:33)
[2023-05-01 08:55] VITALS: BP 132/78; PULSE 78; RESP 16; TEMP 36.6; O2SAT 96
[2023-05-01 11:08] VITALS: BMI 28.7
[2023-05-01] MEDS: 0.9% Saline Lock 10 ML Syringe IV ×2 (13:45→18:20)
[2023-05-01 19:09] VITALS: BP 127/74; PULSE 62; RESP 14; TEMP 36.7; O2SAT 100
[2023-05-01] MEDS: Rosuvastatin 20 MG Tablet PO (20:15)
[2023-05-01] MEDS: traZODone 100 MG Tablet 50 MG PO (20:15)
[2023-05-01] MEDS: oxyCODONE 5 MG Tablet PO (20:19)
[2023-05-01 23:49] VITALS: BMI 28.7
[2023-05-02] MEDS: Piperacil/Tazobactam 3.375 GM in 0.9% Normal Saline (50mL MB+) 50 ML IV ×3 (05:03→21:32)
[2023-05-02 05:34] LABS: Bedside Glucose 109 mg/dL (74-106)
[2023-05-02] MEDS: Lisinopril 20 MG Tablet PO (07:29)
[2023-05-02] MEDS: Potassium Chloride Oral Tablet 20 MEQ PO (07:30)
[2023-05-02] MEDS: levETIRAcetam 750 MG Tablet PO ×2 (07:30→21:31)
[2023-05-02] MEDS: Carvedilol 6.25 MG Tablet PO ×2 (07:30→21:31)
[2023-05-02] MEDS: Empagliflozin 10 MG Tablet PO (07:30)
[2023-05-02] MEDS: Magnesium Chloride 64 MG Delay Rel.Tablet 128 MG PO (07:30)
[2023-05-02] MEDS: Pantoprazole Sodium 40 MG Tablet PO (07:31)
[2023-05-02] MEDS: Senna/Docusate Sodium 1 Tablet 2 TABLET PO ×2 (07:31→21:31)
[2023-05-02] MEDS: DULoxetine Hcl 20 MG Capsule 40 MG PO (07:31)
--- NOTE | 2023-05-02 08:14 | PN.REHAB_ITS ---
Subjective Subjective Patient was admitted for daily rehab following a hospital stay for infected cranial hardware and hematoma evacuation with implant placement. She was seen today on TEAM rounds. No events overnight. The patient continues to do well with therapy. She is doing supervised steps and walking 630 feet. She is able to dress with verbal cues and made dog biscuits recently. The patient will be done with her antibiotics on Saturday with a planned discharge for later that day. Her blood pressure and glucose levels remain well controlled. She is still eating well and moving her bowels. She reports pain in her left shoulder, but it seems to get better as the day goes on. She has no questions or concerns today. Objective Data Objective Data Vital Signs: Vital Signs Temp Pulse Resp BP Pulse Ox O2 Del Method 98.1 F 62 14 127/74 H 100 Room Air 05/01/23 19:09 05/01/23 19:09 05/01/23 19:09 05/01/23 19:09 05/01/23 19:09 05/01/23 19:09 Oxygen Delivery Method Room Air Weight: 162 lb 4.163 oz Body Mass Index (BMI) 28.7 Intake & Output: Intake and Output for Last 24 Hours 04/30/23 05/01/23 05/02/23 23:59 23:59 23:59 Intake Total 1333.25 / 1333.25 2585.75 / 2825.75 410 / 410 Output Total 500 / 500 Balance 1333.25 / 1333.25 2585.75 / 2825.75 -90 / -90 Lab / Micro Data Attestation: I reviewed the patient's lab results. 04/23/23 08:40 04/23/23 08:40 Labs: Laboratory Results - last 24 hr 05/02/23 05:02: POC Glucose 109 H Micro: Microbiology 04/26/23 14:25 Urine, Clean Catch Urine Culture - Final Pseudomonas aeruginosa Indicators for Scoring Admitted with or Primary Diagnosis of CVA/Stroke: No Hx of CVA/Stroke: Yes Modified [place] Score MRS Score at time of Evaluation: 4-Moderate/severe disability Physical Exam Const alert, oriented x3, no apparent distress and well nourished Constitutional Narrative: Sitting up in the chair General Appearance: cooperative and comfortable; Negative for in distress, ill appearing or diaphoretic Orientation / Consciousness: awake, oriented to person, oriented to place and oriented to time Exam Limitations: Negative for altered mental status HEENT normocephalic, head/scalp atraumatic, moist oral mucous membranes and oropharynx normal Head and Scalp: normocephalic, atraumatic and other Other Details: Post operative scar healing well without erythema or drainage. Sutures intact. Face and Sinus: normal facial exam Eyes General Eye: normal appearance of both eyes Chest inspection of chest normal Chest: abnormal inspection of the chest and symmetrical chest wall rise Resp normal respiratory effort, normal air movement, no use of accessory muscles and clear to auscultation bilaterally Effort and Inspection: able to speak in complete sentences and symmetric chest movement; Negative for respiratory distress or audible wheezes Auscultation: clear to auscultation bilaterally Cardio regular rate, regular rhythm and no murmurs Rate: regular rate Rhythm: regular rhythm Heart Sounds: Negative for murmur GI normal to inspection, nondistended, normoactive bowel sounds, soft to palpation, non-tender and non-distended Auscultation: normoactive bowel sounds Palpation: soft; Negative for tender or guarding Extremity Extremity Narrative: Mild swelling of left hand General Extremity: Negative for edema Skin no rashes or lesions noted General Skin Exam: no breakdown Lesions: no lesions Rashes: no rashes Neuro oriented x3 Sensorium / Orientation: awake, alert, oriented to person, oriented to place and oriented to time Speech: speech normal Psych mental status grossly normal, cooperative, affect normal and speech normal Appearance: grossly normal Attitude: calm Assessment & Plan Assessment/Plan (1) Debility: PLAN: Will continue with PT/OT and follow up on findings and recommendations. Plan for discharge home with and outpatient therapy, on 05/04. Continue with PRN pain management, bowel regimen and fall precautions. (2) History of cranioplasty: PLAN: Patient has completed antibiotic therapy and is doing well. She will follow up with neurology upon discharge from the inpatient rehab. Incision looks good today without any signs of ongoing infection. (3) Hemorrhagic stroke: PLAN: Occurred in June. Continue with statin. (4) Left hemiparesis: PLAN: Will continue with PT as above and monitor progress. She does feel the exercises are helping. 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 Glucose this morning was 109. (6) Hypertension: QUALIFIERS: Hypertension type: primary hypertension Qualified Code(s): I10 - Essential (primary) hypertension PLAN: Blood pressure shows good control. Will continue current management and monitor. (7) Partial motor seizures: PLAN: Continue with home Keppra. (8) Pseudomonas urinary tract infection: PLAN: Patient is on IV zosyn until 05/04. Charges/Coding Visit Charges Inpatient E&M: 50234 Subs Hosp L2
--- NOTE | 2023-05-02 09:12 | CASEMGMT ---
Social Work IDT met with patient and for Team meeting. Discussed patient's progress in PT/OT/ST/SN. Educated to [facility] insurance with [employer] 05/01 and insurance issued DC 05/04. Pt and agreeable to DC. Confirmed [facility] PT/OT/ST and no DME identified. to transport. Pt has new IV ATB for UTI through 05/04, but pt can still DC. also provided pt with [employer] resources for safety when/if pt will be left home alone. Plan: DC home with 05/04, [facility] PT/OT/ST Nadia Reynolds, [employer]
[2023-05-02 09:16] VITALS: BP 92/55; PULSE 65; RESP 16; TEMP 37.1; O2SAT 94
[2023-05-02 10:26] VITALS: BMI 28.7
[2023-05-02] MEDS: oxyCODONE 5 MG Tablet PO ×2 (14:35→21:31)
[2023-05-02 21:16] VITALS: BP 118/77; PULSE 65; RESP 16; TEMP 36.7; O2SAT 96
[2023-05-02] MEDS: traZODone 100 MG Tablet 50 MG PO (21:31)
[2023-05-02] MEDS: Rosuvastatin 20 MG Tablet PO (21:31)
[2023-05-02] MEDS: 0.9% Saline Lock 10 ML Syringe IV (21:32)
[2023-05-02 22:42] VITALS: BMI 28.7
[2023-05-03] MEDS: Piperacil/Tazobactam 3.375 GM in 0.9% Normal Saline (50mL MB+) 50 ML IV ×3 (06:47→22:22)
[2023-05-03] MEDS: 0.9% Saline Lock 10 ML Syringe IV ×5 (06:48→22:23)
[2023-05-03 06:54] LABS: Bedside Glucose 130 mg/dL (74-106)
[2023-05-03] MEDS: Empagliflozin 10 MG Tablet PO (07:44)
[2023-05-03] MEDS: Potassium Chloride Oral Tablet 20 MEQ PO (07:45)
[2023-05-03] MEDS: Lisinopril 20 MG Tablet PO (07:46)
[2023-05-03] MEDS: Carvedilol 6.25 MG Tablet PO ×2 (07:46→19:58)
[2023-05-03] MEDS: levETIRAcetam 750 MG Tablet PO ×2 (07:46→19:58)
[2023-05-03] MEDS: Magnesium Chloride 64 MG Delay Rel.Tablet 128 MG PO (07:46)
[2023-05-03] MEDS: Pantoprazole Sodium 40 MG Tablet PO (07:46)
[2023-05-03] MEDS: Senna/Docusate Sodium 1 Tablet 2 TABLET PO ×2 (07:47→19:57)
[2023-05-03] MEDS: DULoxetine Hcl 20 MG Capsule 40 MG PO (07:48)
[2023-05-03 08:37] VITALS: BP 119/69; PULSE 62; RESP 16; TEMP 37; O2SAT 95
--- NOTE | 2023-05-03 10:10 | DS.PCM_ITS ---
Providers Date of Admission: 04/15/23 Date of Discharge: 05/04/23 Primary Care Physician: Dr. Flaquita Fink MD Reason For Visit: RIGHT SIDED CRANIOPLASTY Diagnosis Discharge Diagnosis (1) Debility: Status: Acute Code(s): R53.81 - Other malaise Plan: Will discharge home with outpatient therapy on 05/04. No equipment needs. (2) History of cranioplasty: Status: Acute Code(s): Z98.890 - Other specified postprocedural states Plan: Patient has completed antibiotic therapy and is doing well. She will follow up with neurosurgery upon discharge from the inpatient rehab. Incision looks good today without any signs of ongoing infection. (3) Hemorrhagic stroke: Status: Acute Code(s): I61.9 - Nontraumatic intracerebral hemorrhage, unspecified Plan: Occurred in June. Continue with statin. (4) Left hemiparesis: Status: Acute Code(s): G81.94 - Hemiplegia, unspecified affecting left nondominant side Plan: Will continue with PT as above and monitor progress. She does feel the exercises are helping. (5) Diabetes mellitus: Status: Acute Code(s): E11.9 - Type 2 diabetes mellitus without complications Qualifiers: Diabetes mellitus type: type 2 Diabetes mellitus supervisor intermediates insulin use: without senior living use Diabetes mellitus complication status: without complication Qualified Code(s): E11.9 - Type 2 diabetes mellitus without complications Plan: Glucose has been well controlled during hospital stay. She will resume her home medications. (6) Hypertension: Status: Chronic Code(s): I10 - Essential (primary) hypertension Qualifiers: Hypertension type: primary hypertension Qualified Code(s): I10 - Essential (primary) hypertension Plan: Blood pressure shows good control. Will continue current management and monitor. (7) Partial motor seizures: Status: Acute Code(s): G40.109 - Localization-related (focal) (partial) symptomatic epilepsy and epileptic syndromes with simple partial seizures, not intractable, without status epilepticus Plan: Continue with home Keppra. (8) Pseudomonas urinary tract infection: Status: Acute Code(s): N39.0 - Urinary tract infection, site not specified; B96.5 - Pseudomonas (aeruginosa) (mallei) (pseudomallei) as the cause of diseases classified elsew here Plan: Patient will have her last dose of IV zosyn prior to discharge on 05/04. Symptoms have resolved. Medications at Discharge Home Medications acidophilus 25 million cell-pectin, citrus 100 mg tablet 1 tab PO BID Supplement #60 tabs 12/18/22 carvedilol 6.25 mg tablet (Coreg) 6.25 mg PO BID BP #60 tabs 12/18/22 duloxetine 20 mg capsule,delayed release 40 mg (2 x 20 mg) PO DAILY Mood #60 caps 12/18/22 empagliflozin 10 mg tablet (Jardiance) 10 mg PO DAILY@0800 dm #30 tabs 12/18/22 levetiracetam 500 mg tablet 750 mg (1.5 x 500 mg) PO BID Seizures #90 tabs 12/18/22 lisinopril 20 mg tablet 20 mg PO DAILY BP #30 tabs 12/18/22 magnesium chloride 64 mg (magnesium chloride) tablet,delayed release (Mag 64) 128 mg (2 x 64 mg) PO DAILY vitamin #60 tabs 12/18/22 pantoprazole 40 mg tablet,delayed release 40 mg PO DAILY gerd #30 tabs 12/18/22 potassium chloride 20 mEq tablet,extended release 20 meq PO DAILY supp #30 tabs 12/18/22 rosuvastatin 20 mg tablet (Crestor) 10 mg (1/2 x 20 mg) PO QHS Cholestrol #30 tabs 12/18/22 sennosides 8.6 mg-docusate sodium 50 mg tablet (Stool Softener-Stimulant Laxative) 2 tab PO BID Stool softner #120 tabs 12/18/22 cholecalciferol (vitamin D3) 50 mcg (2,000 unit) tablet 50 mcg PO WE vitamin 04/15/23 hydrocodone-acetaminophen 5-325mg 5mg-325mg 1 tab PO Q12H PRN Pain Score 1-10 04/15/23 ondansetron 4 mg disintegrating tablet 4 mg PO Q6H PRN Nausea 04/15/23 oxycodone 5 mg tablet 5 mg PO Q6H PRN Pain 04/15/23 trazodone 100 mg tablet 50 mg PO QHS Sleep 04/15/23 Hospital Course Summary of Care Provided Hospital Course: Patient came as a transfer from [facility] for therapy purposes. The patient was initially admitted there on 04/03 for a cranioplasty with implant. 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 The surgery went well without complications. Therapy saw the patient who felt she would benefit from rehab and, once stable, was transferred to [place] inpatient rehab on 04/15. The patient worked well with therapy during her admission. She was found to have a UTI which was treated with IV antibiotics. She clinically improved and it was felt she could be discharged home on 05/04 with outpatient therapy. Today, the patient reports she is feeling well. She feels ready to go home and has no questions or concerns at this time. Physical Exam Const alert, oriented x3, no apparent distress and well nourished Constitutional Narrative: Sitting up in the chair, working with therapy General Appearance: cooperative and comfortable; Negative for in distress, ill appearing or diaphoretic Orientation / Consciousness: awake, oriented to person, oriented to place and oriented to time Exam Limitations: Negative for altered mental status HEENT normocephalic, head/scalp atraumatic, moist oral mucous membranes and oropharynx normal Head and Scalp: normocephalic, atraumatic and other Other Details: Post operativ e scar healing well without erythema or drainage. Sutures intact. Face and Sinus: normal facial exam Eyes General Eye: normal appearance of both eyes Chest inspection of chest normal Chest: symmetrical chest wall rise Resp normal respiratory effort, normal air movement, no use of accessory muscles and clear to auscultation bilaterally Effort and Inspection: able to speak in complete sentences and symmetric chest movement; Negative for respiratory distress or audible wheezes Auscultation: clear to auscultation bilaterally Cardio regular rate, regular rhythm and no murmurs Rate: regular rate Rhythm: regular rhythm Heart Sounds: Negative for murmur GI normal to inspection, nondistended, normoactive bowel sounds, soft to palpation, non-tender and non-distended Auscultation: normoactive bowel sounds Palpation: soft; Negative for tender or guarding Extremity Extremity Narrative: Mild swelling of left hand General Extremity: Negative for edema Skin no rashes or lesions noted General Skin Exam: no breakdown Lesions: no lesions Rashes: no rashes Neuro oriented x3 Sensorium / Orientation: awake, alert, oriented to person, oriented to place and oriented to time Speech: speech normal Psych mental status grossly normal, cooperative, affect normal and speech normal Appearance: grossly normal Attitude: calm Weight / BMI Weight Weight: 162 lb 4.163 oz Body Mass Index (BMI) 28.7 ABG / Lab / Microbiology Data 04/23/23 08:40 04/23/23 08:40 Laboratory: Laboratory Results - last 24 hr 05/03/23 06:35: POC Glucose 130 H Microbiology: Microbiology 04/26/23 14:25 Urine, Clean Catch Urine Culture - Final Pseudomonas aeruginosa Indicators for Scoring Admitted with or Primary Diagnosis of CVA/Stroke: No Hx of CVA/Stroke: Yes Modified John Score MRS Score at time of Evaluation: 2-Slight disability D/C Instructions Discharge Diet: 1800 Calorie Control Diet Discharge Activity: - (per therapy recommendations) Weight Bearing Status: Full weight bearing Call your doctor if your incision/area has: Continuous Slow Oozing, Sudden Increased Bleeding, Increased Pain/ Swelling, Increased Redness and Foul Smelling Discharge Call your doctor if you observe: Fever of 101 or Higher, Dizziness, Fainting spells and Uncontrolled pain Cleanse incision/area with: Soap & Water Please Follow Up With: Chloe Pavon When: as scheduled, 05/13 Meaningful Use Info Meaningful Use Diagnoses (Choose all that apply): None applicable Discharge Plan Admission Admit Date/Time: 04/15/23 17:53 Primary Reason for Your Visit: Debility - s/p cranioplasty Attending Provider: Corey Portillo Chi Primary Care Provider: Flaquita Fink Discharge Orders/Prescriptions Prescriptions: Continued lisinopril 20 mg Tablet 20 mg PO DAILY Qty: 30 0RF duloxetine 20 mg Capsule,Delayed Release(Dr/Ec) 40 mg PO DAILY Qty: 60 0RF levetiracetam 500 mg Tablet 750 mg PO BID Qty: 90 0RF sennosides-docusate sodium [Stool Softener-Stimulant Laxat] 8.6-50 mg Tablet 2 tab PO BID Qty: 120 0RF acidophilus-pectin, citrus 25 million cell -100 mg Tablet 1 tab PO BID Qty: 60 0RF carvedilol [Coreg] 6.25 mg Tablet 6.25 mg PO BID Qty: 60 0RF pantoprazole 40 mg tablet,delayed release (DR/EC) 40 mg PO DAILY Qty: 30 0RF rosuvastatin [Crestor] 20 MG tablet 10 mg PO QHS Qty: 30 0RF Mag 64 64 mg tablet,delayed release (DR/EC) 128 mg PO DAILY Qty: 60 0RF potassium chloride 20 mEq tablet extended release 20 meq PO DAILY Qty: 30 0RF Jardiance 10 mg tablet 10 mg PO DAILY@0800 Qty: 30 0RF trazodone 100 mg Tablet 50 mg PO QHS cholecalciferol (vitamin D3) 50 mcg (2,000 unit) Tablet 50 mcg PO WE ondansetron 4 mg tablet,disintegrating 4 mg PO Q6H PRN (Reason: Nausea) Discontinued metformin 500 mg tablet 250 mg PO BIDCM Qty: 30 0RF cephalexin 500 mg capsule 500 mg PO Q12H Patient Comments: TAKE 2 CAPSULE BY MOUTH EVERY 12 HOURS FOR 7 DAYS. No Action hydrocodone-acetaminophen 5-325 mg Tablet 1 tab PO Q12H PRN (Reason: Pain Score 1-10) oxycodone 5 mg tablet 5 mg PO Q6H PRN (Reason: Pain) Referrals / Follow Up: Chloe Pavon [Other] - 05/13/23 2:45 pm ([facility] ) Flaquita Fink MD [Primary Care Provider] - Disposition Disposition (needs filled in before D/C Order can be placed): Home, Self Care Charges/Coding Visit Charges Inpatient E&M: 19417 Disch Hosp >30min
[2023-05-03 11:16] VITALS: BMI 28.7
[2023-05-03] MEDS: traZODone 100 MG Tablet 50 MG PO (19:59)
[2023-05-03] MEDS: Rosuvastatin 20 MG Tablet PO (19:59)
[2023-05-03] MEDS: oxyCODONE 5 MG Tablet PO (19:59)
[2023-05-03 20:00] VITALS: BP 125/72; PULSE 61; RESP 17; TEMP 36.9; O2SAT 96
[2023-05-04 00:55] VITALS: BMI 28.7
[2023-05-04] MEDS: 0.9% Saline Lock 10 ML Syringe IV (06:32)
[2023-05-04] MEDS: Piperacil/Tazobactam 3.375 GM in 0.9% Normal Saline (50mL MB+) 50 ML IV (06:32)
[2023-05-04 07:35] VITALS: BP 134/74; PULSE 64; RESP 17; TEMP 37.1; O2SAT 94
[2023-05-04 07:42] LABS: Bedside Glucose 107 mg/dL (74-106)
[2023-05-04] MEDS: Magnesium Chloride 64 MG Delay Rel.Tablet 128 MG PO (09:20)
[2023-05-04] MEDS: levETIRAcetam 750 MG Tablet PO (09:20)
[2023-05-04] MEDS: Potassium Chloride Oral Tablet 20 MEQ PO (09:20)
[2023-05-04] MEDS: Senna/Docusate Sodium 1 Tablet 2 TABLET PO (09:20)
[2023-05-04] MEDS: Carvedilol 6.25 MG Tablet PO (09:20)
[2023-05-04] MEDS: DULoxetine Hcl 20 MG Capsule 40 MG PO (09:20)
[2023-05-04] MEDS: Empagliflozin 10 MG Tablet PO (09:21)
[2023-05-04] MEDS: Lisinopril 20 MG Tablet PO (09:22)
[2023-05-04] MEDS: Pantoprazole Sodium 40 MG Tablet PO (09:22)
[2023-05-04 12:00] VITALS: BP 134/74; PULSE 64; RESP 17; TEMP 37.1; O2SAT 94
--- NOTE | 2023-05-04 12:00 | NURSING ---
Discharge instructions given to patient and and verbalized understanding.
[2023-05-04 13:03] VITALS: BMI 28.7
== END 2023-05-04 12:00 | disposition home or self-care (01) | DRG 560 ==
PROVIDERS: Admitting Provider Family Medicine Geriatric Medicine; PCP Internal Medicine; Visit Provider Family Medicine Geriatric Medicine
DX: Z47.89 Encounter for other orthopedic aftercare (principal); G81.94 Hemiplegia, unspecified affecting left nondominant side; G40.109 Localization-related (focal) (partial) symptomatic epilepsy and epileptic syndromes with simple partial seizures, not intractable, without status epilepticus; N39.0 Urinary tract infection, site not specified; E11.9 Type 2 diabetes mellitus without complications; E03.9 Hypothyroidism, unspecified; E55.9 Vitamin D deficiency, unspecified; B96.5 Pseudomonas (aeruginosa) (mallei) (pseudomallei) as the cause of diseases classified elsewhere; I10 Essential (primary) hypertension; F32.9 Major depressive disorder, single episode, unspecified; E87.6 Hypokalemia; E78.5 Hyperlipidemia, unspecified; G47.33 Obstructive sleep apnea (adult) (pediatric); Z79.84 Long term (current) use of oral hypoglycemic drugs; R33.9 Retention of urine, unspecified; Z23 Encounter for immunization; Z96.7 Presence of other bone and tendon implants; Z79.899 Other long term (current) drug therapy; Z86.73 Personal history of transient ischemic attack (TIA), and cerebral infarction without residual deficits
CPT/HCPCS: 36415; 80053; 81001; 82962; 83735; 85025; 85027; 87077; 87086; 87088; 87184; 87186; 92507; 92523; 97110; 97112; 97116; 97129; 97130; 97162; 97166; 97530; 97535; 97802; 97803; J7050; 90662; A4216

== ENCOUNTER → 2023-06-03 | Outpatient (CLI) | payer MEDICARE, SELFPAY ==
[2023-06-03 12:20] LABS: Amphetamine Urine VISTA NEGATIVE (<1000 ng/mL); Barbiturate Urine VISTA NEGATIVE (< 200 ng/mL); Benzodiazepine Urine VISTA NEGATIVE (< 200 ng/mL); Cocaine Urine VISTA NEGATIVE (< 300 ng/mL); Ecstacy Urine VISTA NEGATIVE (< 500 ng/mL); Methadone Urine VISTA NEGATIVE (< 300 ng/mL); PCP Urine VISTA NEGATIVE (< 25 ng/mL); THC Urine VISTA NEGATIVE (< 50 ng/mL); Vista UDS pH Range 7
== END | disposition home or self-care (01) ==
LOC: LAB.FUTURE 04-01 13:18 → LAB 11:33
PROVIDERS: PCP Internal Medicine; Referring Provider Anesthesiology Pain Medicine; Visit Provider Anesthesiology Pain Medicine
DX: F11.20 Opioid dependence, uncomplicated (principal)
CPT/HCPCS: 80307

== ENCOUNTER → 2023-08-21 | Outpatient (CLI) | payer MEDICARE, SELFPAY | END | disposition home or self-care (01) | PROVIDERS: PCP Internal Medicine | DX: G47.33 Obstructive sleep apnea (adult) (pediatric) (principal) | CPT/HCPCS: 95810 ==

== ENCOUNTER 2023-09-15 13:52 | Emergency (ER) | payer MEDICARE, SELFPAY ==
[2023-09-15 13:54] VITALS: BP 159/97; PULSE 69; RESP 18; TEMP 36.8; O2SAT 100; BMI 31.0
--- NOTE | 2023-09-15 15:19 | EDS_ITS ---
HPI History of Present Illness Chief Complaint: Neuro S/Sx Informant: patient Onset/Context/Timing Onset: Today Context: Gradual Onset Timing: Continuous Quality: Throbbing, tingling Location: Left hand and left arm Worsened by: Blood pressure cuff and plating Relieved by: Nothing Narrative Narrative: Patient presents with throbbing and tingling to her left arm and left hand that began today. Patient states it is gradually gotten worse. Patient states that has been constant. Patient states her symptoms are worse when the blood pressure cuff inflates. Patient states nothing makes it better. Patient also admits to some tingling in her left ankle and left foot. Patient checked her blood pressure at home and it was 190/100. Patient then came to the emergency department for evaluation. Patient has a history of a prior stroke with left- sided weakness. Patient was also diagnosed with COVID-19 recently. [facility] Medical History Abdominal adhesions Anxiety Chronic back pain Diabetes mellitus, type 2 Hearing loss Heme positive stool Hemorrhagic stroke History of ectopic History of hemorrhagic cerebrovascular accident (CVA) without residual deficits Hyperlipidemia Hypertension Obstructive sleep apnea Sleep apnea Stroke/cerebrovascular accident Home Medications acidophilus 25 million cell-pectin, citrus 100 mg tablet 1 tab PO BID Supplement #60 tabs 12/18/22 [Rx Last Taken Unknown] carvedilol 6.25 mg tablet (Coreg) 6.25 mg PO BID BP #60 tabs 12/18/22 [Rx Last Taken Unknown] duloxetine 20 mg capsule,delayed release 40 mg (2 x 20 mg) PO DAILY Mood #60 caps 12/18/22 [Rx Last Taken 04/15/23] empagliflozin 10 mg tablet (Jardiance) 10 mg PO DAILY@0800 dm #30 tabs 12/18/22 [Rx Last Taken Unknown] levetiracetam 500 mg tablet 750 mg (1.5 x 500 mg) PO BID Seizures #90 tabs 12/18/22 [Rx Last Taken Unknown] lisinopril 20 mg tablet 20 mg PO DAILY BP #30 tabs 12/18/22 [Rx Last Taken Unknown] magnesium chloride 64 mg (magnesium chloride) tablet,delayed release (Mag 64) 128 mg (2 x 64 mg) PO DAILY vitamin #60 tabs 12/18/22 [Rx Last Taken Unknown] pantoprazole 40 mg tablet,delayed release 40 mg PO DAILY gerd #30 tabs 12/18/22 [Rx Last Taken Unknown] potassium chloride 20 mEq tablet,extended release 20 meq PO DAILY supp #30 tabs 12/18/22 [Rx Last Taken Unknown] sennosides 8.6 mg-docusate sodium 50 mg tablet (Stool Softener-Stimulant Laxative) 2 tab PO BID Stool softner #120 tabs 12/18/22 [Rx Last Taken Unknown] cholecalciferol (vitamin D3) 50 mcg (2,000 unit) tablet 50 mcg PO WE vitamin 04/15/23 [History Last Taken Unknown] ondansetron 4 mg disintegrating tablet 4 mg PO Q6H PRN Nausea 04/15/23 [History Last Taken Unknown] trazodone 100 mg tablet 50 mg PO QHS Sleep 04/15/23 [History Last Taken Unknown] oxycodone 5 mg tablet 5 mg PO Q6H PRN Pain 5 days #20 tabs 05/03/23 [Rx Last Taken Unknown] rosuvastatin 20 mg tablet (Crestor) 20 mg PO QHS Cholestrol #30 tabs 05/03/23 [Rx Last Taken Unknown] Allergy/AdvReac Type Severity Reaction Status Date / Time latex Allergy Rash Verified 09/15/23 13:54 naproxen Allergy Rash Verified 09/15/23 13:54 Jikstlj-Bbg-Fwk Reductase Allergy MUSCLE Verified 09/15/23 13:54 Inhibitor ACHES Family History Other CVA (cerebral vascular accident) Diabetes Surgical History History of bunionectomy History of cranioplasty History of open heart surgery History of vein stripping Hx of craniotomy Previous back surgery Social History household members: spouse housing: other details: One-story house with 2 steps to enter the house Smoking Status: Never smoker alcohol intake: never substance use type: does not use ROS ROS ED Constitutional Constitutional ED: Reports fever(s); Denies chills Eyes Eyes: Denies blurry vision or change in vision ENT ENT ED: Reports rhinorrhea and sore throat Cardiovascular Cardiovascular: Denies chest pain or palpitations Respiratory/Chest Respiratory/Chest: Reports cough; Denies dyspnea Gastrointestinal Gastrointestinal: Denies nausea or vomiting Genitourinary Genitourinary ED: Denies dysuria or hematuria Musculoskeletal Musculoskeletal: Reports back pain; Denies neck pain Integumentary Denies abscess or rash Neurologic Neurologic: Denies headache(s) or weakness Allergic/Immunologic Allergic/Immunologic ED: Denies mouth swelling or urticaria EXAM Physical Exam Const Vital Signs: 09/15/23 13:54 09/15/23 15:53 09/15/23 17:00 Temperature 98.3 F Temperature Source Temporal Pulse Rate 69 65 65 Respiratory Rate 18 12 14 Blood Pressure 159/97 H 119/80 192/93 H Blood Pressure Mean 117 93 126 Pulse Ox 100 97 99 Oxygen Delivery Method Room Air Room Air Room Air Positive well nourished and well developed General Appearance ED: well developed and NAD HEENT Reports moist mucous membranes Neck supple and no JVD Resp normal respiratory effort and clear to auscultation bilaterally Cardio regular rate and regular rhythm GI non-tender and non-distended Palpation: soft Extremity normal to inspection Extremity Narrative: Radial and pedal pulses are equal bilaterally. General Extremety ED: Negative for edema or tenderness General Extremity: Negative for edema Neuro oriented x3, CN's II-XII intact bilaterally and no sensory deficits noted Sensorium / Orientation: alert Motor Exam: strength 5/5 throughout Psych mental status grossly normal MDM MDM MDM Narrative Medical decision making narrative: Differential diagnosis includes dehydration, electrolyte abnormality, infection, cardiac dysrhythmia, cardiac ischemia, and anxiety. EKG will be obtained to assess for cardiac dysrhythmia and cardiac ischemia. CBC will be obtained to assess for leukocytosis and anemia. Basic metabolic profile will be obtained to assess for electrolyte abnormality and renal function. High-sensitivity troponin will be obtained to assess for cardiac ischemia. Urinalysis will be obtained to assess for urinary tract infection and hematuria. Lab Data Attestation: I reviewed the patient's lab results. Lab results narrative: CBC was reviewed. White blood cell count was slightly low at 3.3. Hemoglobin was slightly low at 11.1. Platelets were normal. Basic metabolic profile was reviewed and was within normal limits. High-sensitivity troponin was reviewed and was normal at less than 3. Urinalysis was reviewed. There is no evidence of urinary tract infection or hematuria. Labs: Laboratory Results - last 24 hr 09/15/23 09/15/23 15:30 18:10 WBC 3.3 L RBC 4.41 Hgb 11.1 L Hct 35.7 L MCV 81.0 MCH 25.2 L MCHC 31.1 L RDW Std Deviation 60.9 H RDW Coeff of Carmelo 21.5 H Plt Count 171 MPV 9.5 Immature Gran % (Auto) 0.000 Neut % (Auto) 21.5 L Lymph % (Auto) 65.8 H Borden % (Auto) 10.3 H Eos % (Auto) 1.8 Baso % (Auto) 0.6 Absolute Neuts (auto) 0.7 L Absolute Lymphs (auto) 2.17 Nucleated RBC % 0 Differential Comment SEE COMMENT Platelet Estimate ADEQUATE RBC Morphology N CHROM Anisocytosis RARE Microcytosis RARE Sodium 140 Potassium 3.9 Chloride 106 Carbon Dioxide 29.0 Anion Gap 5 BUN 12 Creatinine 0.66 Estim Creat Clear Calc 67.70 Est GFR (MDRD) Af Amer 113 Est GFR (MDRD) Non-Af 94 BUN/Creatinine Ratio 18.0 Glucose 87 Calcium 9.4 Troponin I High Sens < 3 L Urine Color Yellow Urine Clarity Clear Urine pH 5.0 Ur Specific [place] 1.015 Urine Protein Negative Urine Glucose (UA) 1000 H Urine Ketones 50 H Urine Occult Blood Negative Urine Nitrite Negative Urine Bilirubin Negative Urine Urobilinogen Normal Ur Leukocyte Esterase Negative Urine RBC 0 SEEN Urine WBC 0 SEEN Ur Squamous Epith Cells 0 SEEN Urine Bacteria 0 SEEN Urine Mucus 0 SEEN EKG Initial EKG: Attestation: I personally reviewed and interpreted this EKG as follows: Interpretation: Sinus Rhythm (66) and No Acute Injury Pattern Comments: EKG was obtained. On my independent interpretation, it showed a normal sinus rhythm with a rate of 66. NH interval, QRS interval, and QTc intervals were all normal. [place] was normal. There are no acute ST or T wave changes. Prior EKG tracings: available for review Prior: Unchanged (09/07/2022) Treatment and Re-Evaluation :: Patient was given IV fluids. Patient was advised of her findings. Patient feeling better on reevaluation. Patient was instructed to follow-up with her primary care physician in 5 to 7 days for further evaluation. Patient and spouse understood and were agreeable with the plan. All questions were answered. Discharge Plan Triage Chief Complaint: Neuro S/Sx ED Provider: Gamal Silverman Dx/Rx/DC Orders Clinical Impression: COVID-19, Arm paresthesia, left Instructions: ED Paraesthesias Prescriptions: No Action lisinopril 20 mg Tablet 20 mg PO DAILY Qty: 30 0RF duloxetine 20 mg Capsule,Delayed Release(Dr/Ec) 40 mg PO DAILY Qty: 60 0RF levetiracetam 500 mg Tablet 750 mg PO BID Qty: 90 0RF sennosides-docusate sodium [Stool Softener-Stimulant Laxat] 8.6-50 mg Tablet 2 tab PO BID Qty: 120 0RF acidophilus-pectin, citrus 25 million cell -100 mg Tablet 1 tab PO BID Qty: 60 0RF carvedilol [Coreg] 6.25 mg Tablet 6.25 mg PO BID Qty: 60 0RF pantoprazole 40 mg tablet,delayed release (DR/EC) 40 mg PO DAILY Qty: 30 0RF Mag 64 64 mg tablet,delayed release (DR/EC) 128 mg PO DAILY Qty: 60 0RF potassium chloride 20 mEq tablet extended release 20 meq PO DAILY Qty: 30 0RF Jardiance 10 mg tablet 10 mg PO DAILY@0800 Qty: 30 0RF trazodone 100 mg Tablet 50 mg PO QHS cholecalciferol (vitamin D3) 50 mcg (2,000 unit) Tablet 50 mcg PO WE ondansetron 4 mg tablet,disintegrating 4 mg PO Q6H PRN (Reason: Nausea) rosuvastatin [Crestor] 20 MG tablet 20 mg PO QHS Qty: 30 0RF oxycodone 5 mg tablet 5 mg PO Q6H PRN (Reason: Pain) 5 Days Qty: 20 0RF Primary Care Provider: Flaquita Fink Referrals: Flaquita Fink MD [Primary Care Provider] - 3-5 Days Disposition Disposition: Home, Self Care
[2023-09-15] MEDS: 0.9% Normal Saline (1000mL) 1,000 ML 1000 ML IV (15:40)
--- NOTE | 2023-09-15 15:43 | EKG12_ITS ---
Test Reason : HIGH BLOOD PRESSURE Blood Pressure : / mmHG Vent. Rate : 066 BPM Atrial Rate : 066 BPM P-R Int : 178 ms QRS Dur : 090 ms QT Int : 436 ms P-R-T Axes : 056 007 048 degrees QTc Int : 457 ms Normal sinus rhythm Normal ECG Confirmed by El Nieves ([id number]), video tape editor DAHLIA TAN ([id number]) on 09/16/2023 10:02:10 AM Referred By: ES Confirmed By:El Nieves
[2023-09-15 15:49] LABS: Absolute Lymphocyte Count 2.17 X10^3/uL (0.83-4.51); Absolute Neutrophil Count 0.7 X10^3/uL (2.0-7.7); Basophil# 0.02 X10^3/uL; Basophil% 0.6 % (0-1); Eosinophil# 0.06 X10^3/uL; Eosinophils% 1.8 % (0-5); Hematocrit 35.7 % (37-47); Hemoglobin 11.1 g/dL (12.0-15.0); Lymphocyte # 2.17 X10^3/ul (0.83-4.51); Lymphocyte % 65.8 % (19-41); Mean Corp Hgb Conc 31.1 g/dL (32-36); Mean Corpuscular Hgb 25.2 pg (27.0-32.0); Mean Platelet Vol. 9.5 fl (6.2-12.0); Monocyte# 0.34 X10^3/uL; Monocyte% 10.3 % (0-10); NRBC Flagged by Analyzer 0 % (0-5); Neutrophil # 0.71 X10^3/uL (2.7-7.7); Neutrophil % 21.5 % (47-70); POSITIVE DIFFERENTIAL YES; POSITIVE MORPHOLOGY YES; Platelet Count 171 K/mm3 (150-450); RBC Distribution Width CV 21.5 % (11.6-14.6); RBC Distribution Width SD 60.9 fl (35.1-43.9); Red Blood Count 4.41 M/mm3 (4.2-5.4); White Blood Count 3.3 K/mm3 (4.4-11.0)
[2023-09-15 15:53] VITALS: BP 119/80; PULSE 65; RESP 12; O2SAT 97
[2023-09-15 15:57] VITALS: BMI 31.5
[2023-09-15 15:57] LABS: Anion Gap 5 (5-15); BUN 12 mg/dL (7-18); Calcium,Total 9.4 mg/dL (8.5-10.1); Chloride 106 mmol/L (98-107); Creatinine, Serum 0.66 mg/dL (0.55-1.02); EST Glomerular Filtration Rate 94 mL/min (>60); Est Glom Filt Rate - Afr Amer 113 mL/min (>60); Glucose 87 mg/dL (74-106); Potassium 3.9 mmol/L (3.5-5.1); Sodium Level 140 mmol/L (136-145); Troponin-I HS < 3 pg/mL (3.0-54.0)
[2023-09-15 16:24] LABS: Differential Indicated SCAN CRITERIA MET
[2023-09-15 16:25] LABS: Anisocytosis RARE; Microcytosis RARE; Platelet Estimate ADEQUATE (ADEQ); Red Cell Morphology N CHROM NORMAL (NORM C&C)
[2023-09-15 17:00] VITALS: BP 192/93; PULSE 65; RESP 14; O2SAT 99
[2023-09-15 18:16] LABS: Bacteria 0 SEEN /hpf (None Seen); Color, Urine Yellow (Yellow); Glucose, Dipstick 1000 mg/dl (Normal); Ketone-Dipstick 50 mg/dl (Negative); Leukocyte Esterase-Dipstick Negative /ul (Negative); Mucous, Urine 0 SEEN /hpf (<or=2+); Nitrite-Dipstick Negative (Negative); Occult Blood-Urine Negative /ul (Negative); Protein-Dipstick Negative (Negative); Red Blood Cells-Urine 0 SEEN /hpf (0-5); Specific Gravity, Urine 1.015 (1.002-1.030); Squamous Epithelial Cells - UA 0 SEEN /hpf (5-10); Urine Bilirubin Dipstick Negative (Negative); Urine Clarity Clear (Clear); Urine Urobilinogen Normal (Normal); White Blood Cells 0 SEEN /hpf (0-5)
[2023-09-15 18:57] VITALS: BP 171/89; PULSE 63; RESP 16; TEMP 36.3; O2SAT 98
== END 2023-09-15 18:59 | disposition home or self-care (01) ==
PROVIDERS: Emergency Provider Emergency Medicine; PCP Internal Medicine; Visit Provider Emergency Medicine
DX: U07.1 COVID-19 (principal); I69.354 Hemiplegia and hemiparesis following cerebral infarction affecting left non-dominant side; E11.9 Type 2 diabetes mellitus without complications; R20.2 Paresthesia of skin; M54.9 Dorsalgia, unspecified; G89.29 Other chronic pain; I10 Essential (primary) hypertension; E78.5 Hyperlipidemia, unspecified; G47.33 Obstructive sleep apnea (adult) (pediatric); Z79.82 Long term (current) use of aspirin; Z79.84 Long term (current) use of oral hypoglycemic drugs; Z79.899 Other long term (current) drug therapy
CPT/HCPCS: 80048; 81001; 84484; 85025; 93005; 96360; 99283; J7030

== ENCOUNTER 2023-09-15 23:21 | Emergency (ER) | payer MEDICARE, SELFPAY ==
[2023-09-15 23:22] VITALS: BP 132/75; PULSE 78; RESP 16; TEMP 36.8; O2SAT 96; BMI 31.9
[2023-09-16] MEDS: proCHLORPERazine 10 MG/2 ML Vial 5 MG IV (00:02)
[2023-09-16] MEDS: 0.9% Normal Saline (1000mL) 1,000 ML 999 ML IV (00:03)
[2023-09-16] MEDS: DiphenhydrAMINE 50 MG/ML Syringe 25 MG IV (00:03)
--- NOTE | 2023-09-16 01:15 | EX.ED.DYSGE1 ---
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 Patient reported left-sided paresthesias that have been going on all day and was seen in the ER earlier. At that time she had basic lab work obtained which revealed no clinically significant findings and was discharged home. She states that she felt like her symptoms worsened after returning home and therefore called EMS to bring her back in for evaluation. Patient states she has been taking her medication as directed. She also denies any recent sick symptoms or trauma. However she does states she feels extremely anxious and nervous and upset based on the way her life has changed following her previous stroke and need for surgery [facility] Medical History Abdominal adhesions Anxiety Chronic back pain Diabetes mellitus, type 2 Hearing loss Heme positive stool Hemorrhagic stroke History of ectopic History of hemorrhagic cerebrovascular accident (CVA) without residual deficits Hyperlipidemia Hypertension Obstructive sleep apnea Sleep apnea Stroke/cerebrovascular accident Home Medications acidophilus 25 million cell-pectin, citrus 100 mg tablet 1 tab PO BID Supplement #60 tabs 12/18/22 [Rx Last Taken Unknown] carvedilol 6.25 mg tablet (Coreg) 6.25 mg PO BID BP #60 tabs 12/18/22 [Rx Last Taken Unknown] duloxetine 20 mg capsule,delayed release 40 mg (2 x 20 mg) PO DAILY Mood #60 caps 12/18/22 [Rx Last Taken 04/15/23] empagliflozin 10 mg tablet (Jardiance) 10 mg PO DAILY@0800 dm #30 tabs 12/18/22 [Rx Last Taken Unknown] levetiracetam 500 mg tablet 750 mg (1.5 x 500 mg) PO BID Seizures #90 tabs 12/18/22 [Rx Last Taken Unknown] lisinopril 20 mg tablet 20 mg PO DAILY BP #30 tabs 12/18/22 [Rx Last Taken Unknown] magnesium chloride 64 mg (magnesium chloride) tablet,delayed release (Mag 64) 128 mg (2 x 64 mg) PO DAILY vitamin #60 tabs 12/18/22 [Rx Last Taken Unknown] pantoprazole 40 mg tablet,delayed release 40 mg PO DAILY gerd #30 tabs 12/18/22 [Rx Last Taken Unknown] potassium chloride 20 mEq tablet,extended release 20 meq PO DAILY supp #30 tabs 12/18/22 [Rx Last Taken Unknown] sennosides 8.6 mg-docusate sodium 50 mg tablet (Stool Softener-Stimulant Laxative) 2 tab PO BID Stool softner #120 tabs 12/18/22 [Rx Last Taken Unknown] cholecalciferol (vitamin D3) 50 mcg (2,000 unit) tablet 50 mcg PO WE vitamin 04/15/23 [History Last Taken Unknown] trazodone 100 mg tablet 50 mg PO QHS Sleep 04/15/23 [History Last Taken Unknown] rosuvastatin 20 mg tablet (Crestor) 20 mg PO QHS Cholestrol #30 tabs 05/03/23 [Rx Last Taken Unknown] aspirin 81 mg tablet,delayed release (Adult Aspirin Regimen) 81 mg PO DAILY 09/15/23 [History Last Taken Unknown] ferrous sulfate 325 mg (65 mg iron) tablet (Feosol) 325 mg PO DAILY 09/15/23 [History Last Taken Unknown] metformin 500 mg tablet,extended release 24 hr 250 mg PO BID 09/15/23 [History Last Taken Unknown] Allergy/AdvReac Type Severity Reaction Status Date / Time latex Allergy Rash Verified 09/15/23 13:54 naproxen Allergy Rash Verified 09/15/23 13:54 Gppwenb-YEY-NmJ Reductase Allergy MUSCLE Verified 09/15/23 13:54 Inhibitor ACHES [Jeactlv-Hep-Ruo Reductase Inhibitor] Family History Other CVA (cerebral vascular accident) Diabetes Surgical History History of bunionectomy History of cranioplasty History of open heart surgery History of vein stripping Hx of craniotomy Previous back surgery Social History household members: spouse housing: other details: One-story house with 2 steps to enter the house Smoking Status: Never smoker alcohol intake: never substance use type: does not use ROS ROS ED Constitutional Constitutional ED: Denies chills or fever(s) Eyes Eyes: Denies change in vision ENT ENT ED: Denies rhinorrhea or sore throat Cardiovascular Cardiovascular: Denies chest pain, palpitations or racing heartbeat Respiratory/Chest Respiratory/Chest: Denies cough or dyspnea Gastrointestinal Gastrointestinal: Denies abdominal pain, diarrhea, nausea or vomiting Genitourinary Genitourinary ED: Denies dysuria Musculoskeletal Musculoskeletal: Denies myalgias Integumentary Denies rash Neurologic Neurologic: Reports paresthesias; Denies headache(s) Psychiatric Psychiatric: Reports anxiety and depression; Denies suicidal ideation or suicidal thoughts Hematologic/Lymphatic Hematologic/Lymphatic: Denies easy bleeding or easy bruising EXAM Physical Exam Const Vital Signs: 09/15/23 23:22 Temperature 98.3 F Temperature Source Oral Pulse Rate 78 Respiratory Rate 16 Blood Pressure 132/75 H Blood Pressure Mean 94 Pulse Ox 96 Oxygen Delivery Method Room Air Positive well nourished and well developed General Appearance ED: well developed; Negative for pallor HEENT HEENT Narrative: No signs of infection noted in the posterior pharynx No airway edema or compromise Eyes PERRL and EOMs intact bilaterally General Eye ED: Negative for pale conjunctiva or scleral icterus Neck supple Neck Narrative: No nuchal rigidity or meningeal signs noted Resp clear to auscultation bilaterally Resp Narrative: Patient is slightly tachypneic but overall lungs are clear to auscultation without nasal flaring or retractions or accessory muscle use Cardio regular rate and regular rhythm Rate: other Other Details: Heart is regular rate and rhythm without murmurs rubs or gallop Radial and carotid pulses are equal and symmetric No carotid bruit noted GI normal to inspection, nondistended, normoactive bowel sounds, non-tender, non-distended and no masses GI Narrative: No voluntary guarding or rigidity or pulsatile mass Auscultation: normoactive bowel sounds Palpation: soft Extremity normal to inspection Neuro oriented x3 and CN's II-XII intact bilaterally Neuro Narrative: Patient is awake alert and oriented to person place and time. Cranial nerves II through XII are grossly intact. No obvious focal neurologic deficit is noted No pronator drift no dysmetria no truncal ataxia Patient does receive an NIH stroke scale score of 1 as she reports difference in sensation of the left side compared to the right but there is no true numbness or loss of sensation. Sensorium / Orientation: alert Motor Exam: strength 5/5 throughout Psych Psych Narrative: Patient has a tearful/anxious affect without homicidal or suicidal ideation Skin no rashes or lesions noted and no wounds General Skin Exam: Negative for jaundice or pallor MDM MDM MDM Narrative Medical decision making narrative: Patient arrived to the ER with stable vitals. She is also awake alert and oriented with a stroke scale score of 1 secondary to her reported paresthesias. However on exam she can still feel on along the left side and has no derangement to her strength and no signs of brainstem ischemia without truncal ataxia. She is crying and anxious and slight tachypneic and I feel her symptoms are most likely related to more of breakthrough anxiety and her elevated breathing rate. As she had lab work done earlier today I do not feel the need to repeat this. We discussed potential CT/CTA but as her physical exam is most consistent with breakthrough anxiety and not any type of acute stroke I do not feel this is necessary. The patient was given IV fluids as well as IV Compazine and Benadryl. This combination of medication resolved for anxiety and she was able to rest. She reported resolution of her symptoms and her neuroexam remained normal and as there is no longer the sensation of paresthesias or stroke scale score has reduced to 0. Therefore at this time as her history and exam is most consistent with breakthrough anxiety and not any type of infection or true neurologic event and lab work from earlier today revealed no clinically significant abnormalities I do not feel there is need for further evaluation in the ER and she is otherwise safe for discharge. History & Record Review Discussion w/independent historian: EMS personnel and Patient Discharge Plan Triage Chief Complaint: Numb/Ting ED Provider: Ricki Bailey Dx/Rx/DC Orders Clinical Impression: Anxiety attack, Diabetes mellitus, Hyperlipidemia, Hypertension Instructions: ED Panic Attack Prescriptions: No Action lisinopril 20 mg Tablet 20 mg PO DAILY Qty: 30 0RF duloxetine 20 mg Capsule,Delayed Release(Dr/Ec) 40 mg PO DAILY Qty: 60 0RF levetiracetam 500 mg Tablet 750 mg PO BID Qty: 90 0RF sennosides-docusate sodium [Stool Softener-Stimulant Laxat] 8.6-50 mg Tablet 2 tab PO BID Qty: 120 0RF acidophilus-pectin, citrus 25 million cell -100 mg Tablet 1 tab PO BID Qty: 60 0RF carvedilol [Coreg] 6.25 mg Tablet 6.25 mg PO BID Qty: 60 0RF pantoprazole 40 mg tablet,delayed release (DR/EC) 40 mg PO DAILY Qty: 30 0RF magnesium chloride [Mag 64] 64 mg tablet,delayed release (DR/EC) 128 mg PO DAILY Qty: 60 0RF potassium chloride 20 mEq tablet extended release 20 meq PO DAILY Qty: 30 0RF Jardiance 10 mg tablet 10 mg PO DAILY@0800 Qty: 30 0RF trazodone 100 mg Tablet 50 mg PO QHS cholecalciferol (vitamin D3) 50 mcg (2,000 unit) Tablet 50 mcg PO WE rosuvastatin [Crestor] 20 MG tablet 20 mg PO QHS Qty: 30 0RF ferrous sulfate [Feosol] 325 mg (65 mg iron) tablet 325 mg PO DAILY metformin 500 mg tablet extended release 24 hr 250 mg PO BID aspirin [Adult Aspirin Regimen] 81 mg tablet,delayed release (DR/EC) 81 mg PO DAILY Primary Care Provider: Flaquita Fink Referrals: Flaquita Fink MD [Primary Care Provider] - Activity Restrictions/Additional Instructions: Please continue all your medications as directed by your family doctor and return to the ER should you have any further concerns Disposition Disposition: Home, Self Care
[2023-09-16 01:22] VITALS: BP 124/80; PULSE 66; RESP 16; TEMP 36.9; O2SAT 93
== END 2023-09-16 01:42 | disposition home or self-care (01) ==
PROVIDERS: Emergency Provider Emergency Medicine; PCP Internal Medicine; Visit Provider Emergency Medicine
DX: F41.9 Anxiety disorder, unspecified (principal); E11.9 Type 2 diabetes mellitus without complications; R20.0 Anesthesia of skin; R20.2 Paresthesia of skin; E78.5 Hyperlipidemia, unspecified; I10 Essential (primary) hypertension; G47.33 Obstructive sleep apnea (adult) (pediatric); Z79.82 Long term (current) use of aspirin; Z79.84 Long term (current) use of oral hypoglycemic drugs; Z86.73 Personal history of transient ischemic attack (TIA), and cerebral infarction without residual deficits
CPT/HCPCS: 96361; 96374; 96375; 99283; J7030

== ENCOUNTER 2023-11-11 15:30 | Outpatient (RCR) | payer MEDICARE, SELFPAY ==
--- NOTE | 2023-05-08 10:19 | HP.OTEVAL_ITS ---
Patient's Visit Information Visit Information Visit Information: HARSHAL AKERS is a 67 year old F, referred to Occupational Therapy by Dr. Corey Portillo MD, with a diagnosis of right cranioplasty. Date of Evaluation: 05/08/23 Occupational Therapist: BRETT Coley/José Miguel, CHT Subjective Subjective: This 67 year old female was seen for OT eval with dx of a right cranioplasty. Sx of hemorrhagic stroke and left visual neglect inital stroke July of 2022. Pt states 2022.( unsure of date) pt underwent cranioplasty Pt had this done at [facility] pt states she was there about a week to 10 days. Pt was then admitted to [facility] rehab unit. pt states was d/c from the rehab unit [id number]. pt states she has developed left arm pain from shoulder down to hand- pt is wearing compression glove due to swelling. pt states she would like to continue to improve her ROM and strength to return to perform her ADLs and IADLs without limitations. ADLs Fasteners: Zippers Eating: Cut food Comments: due to left hand weakness Comments: pt states she was able to get dressed today by herself but put her shirt on backwards- Does put her Left arm in first with jackets. pt has shower chair and grab bars but has not showered since her release pt states any task that required bilateral hand Pain left arm: Current Pain Intensity: 0 Pain Intensity Range: 0 and 9 ROM Shoulder: right WNL left 90* ROM Comments: pt demo ROM WNL with left elbow/ forearm sup/pron- wrist flex/ext and digit demo full composite fist pt does demo a slower movement pattern compared to unaffected side. Strength Elbow: triceps right 16# left 10# Biceps right 16# left 10# Ski Lift Attendant: right 60# left 5# Lateral Pinch: right 14# left 4# Tripod Pinch: right 14# left 4# Strength Comments: pt demo with a decrease in left UE weakness limiting pts IND use of left UE with ADLs and IADls Nine Hole Peg Right: 28.4 sec. Left: 52.43 sec. Quick DASH-Disab of Arm,Shoulder& Hand Quick DASH Score: 57.5000 Goals Goal:: pt will demo a increase in left shoulder strength demo by performing increase shoulder flexion to simulate placing 3# items on shelf by d/c pt will demo a increase in left fluoroscope operator strength to 40# to increase pts ind. with ADLs and IADLs by d.c Pt will demo a increase in lateral and tripod pinch by 3 # to increase ind with ADls and IADl. pt will demo a increase in left bicep/triceps Fet2 peak force by 6# it increase pts ind. with ADLs and IADls by d/c Goal:: pt will demo a increase in left shoulder flexion to 130* to increase pts ind. with dressing by d/c pt will demo the ability to reach behind her back demo increase in shoulder IR and no pain. Goal:: pt will report no pain greater than 2/10 with use of left UE with ADLs. Goal:: Pt will demo the ability to use bilateral hands to manipulate fasteners (buttons, zippers, tie shoes etc) at INd Level. Goal:: pt will demo increase in visual scan to left to decrease safety concerns with ambulation,( walking in crowds,) and kitchen tasks. ( visual scan for safety with cooking etc) Goal:: pt will demo the ability to identify items to her left with 90% accuracy. Rehabilitation General Assessment: Pt arrives following a right cranioplasty due to hx of a hemorrhagic stroke and left visual neglect Rehabilitation Potential: Good Anticipated Interventions Anticipated Interventions: A/AAROM/PROM, Strengthening, Triggerpoint Release, Modalities, Joint Protection/Energy Conservation, Ergonomic Education, Fine Motor Coord/Frank, Neuro Reeducation, Education re assistive Equipment, Education re Diagnosis, Caregiver Training and Home Program Visit Plan Frequency: 2-3x /Week Duration: 4 Weeks TEXT: Thank you for the opportunity to evaluate your patient. For Medicare and Medicare HMO plans, please review the plan of care and approve it. It will need to be FAXED BACK to us at [phone] for Medicare purposes. Please let me know if there are questions or concerns regarding this plan of care. Physician Signature: Date:
--- NOTE | 2023-05-10 15:22 | HP.PTEVAL_ITS ---
Patient's Visit Information Visit Information Visit Information: HARSHAL KAERS is a 67 year old F referred to Physical Therapy by Dr. Corey Portillo MD with a diagnosis of cranioplasty, stroke. Date of Evaluation: 05/10/23 Physical Therapist: Gamal Whitfield, DPT, OCS, CSCS Visit Plan Frequency: 2x /Week Duration: 4-6 Weeks Plan: 2x/week for 4 weeks for 1. balance foe vest(head movements and foam/ec) to HEP 2. LE strength progression in gym and eventuallky to membership 3. stair training, confidence with weight shifts Care with L UE as she is having OT for weakness and pain in L shoulder after str gabriel Subjective Subjective: Deniz present. 2022 stroke adn still being treated. 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 had cranioplasty in November. Symptoms at itme of stroke intially was FRANKEL and hard to get up into chair after she slid out. vomitting. Skull infection set her back this summer to like just after the stroke. 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 Currently is slowly coming back to where she was after stroke. Was doing really well before infection and is back there almost. Still has a little L neglect, L hand is weak. Legs are OK and but was weak in L leg. Walking fine, no walker needed since Apr 03. No falls or balance problems. Does not feel weak overall except in L UE. Sleep is interrupted by L shoulder. Basic ADLs: showering I in walk in shower with bar. Dresses needs help with shirt and pants due to L arm and cognition. Bathroom I, R handed. Was on rehab for 3rd time until one week ago. 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 L arm would limit her. Exercises : from rehab Pain L shoulder and hand: Pain Intensity (Out of 10): 2 Pain Intensity Range: 0 and 10 Comment: wakes her up at times. Objective Objective: Walks into PT flat affect but I, no limp. trasnfers without UE chair and bed I. Steps without rail but hesitant descending and prefers railling. L ankle weak at 4- vs 4 on R. knees 4-, hips 3+, core 3+ strengt UE AROM L unable to lift past 60 due to pain but PROM good just painful. R WFL reflexes 2/3 patella and achilles Sensation LE WNL to gross lgiht touch. Coordination to reciprocal toe and heel tap is good. Balance/Special Test Scores Functional Gait Assessment Score: 25 % Disability: 16.6700 CATSIB Score (Max score 120 seconds): 110 Lower Extremity Functional Score: 50 TUG Test Time Seconds: 8 30 Second Chair Rise Test Seconds: 14 Goals Goal 1:: 30 FGA Goal Time Frame: 4-6 Weeks Goal 2:: 16 on 30 sec sit to stand Goal Time Frame: 4-6 Weeks Goal 3:: Pt feel 99% back tonormal in fatigue adn mobility Goal Time Frame: 4-6 Weeks Goal 4:: LEFS score 60 Goal Time Frame: 4-6 Weeks Rehabilitation Potential Physical Therapy Diagnosis: weakness, fatigue adn imbalance after stroke and recovery Rehabilitation Potential: Good Anticipated Interventions Patient/Client Instruction: Educate patient on: Condition and Plan of Care For the Purpose of:: To improve nutrient delivery to tissue, To improve muscle performance and motor function, To increase tolerance to activity/condition/position, To improve ability of physical actions for home/community/work/leisure, To improve gait and locomotor functions and To improve safety Therapeutic Exercise to Include: Strength training, Balance training and Postural training For the Purpose of:: To improve nutrient delivery to tissue, To improve muscle performance and motor function, To increase tolerance to activity/condition/position, To improve ability of physical actions for home/community/work/leisure and To improve gait and locomotor functions Text: Thank you for the opportunity to evaluate your patient. For Medicare and Medicare HMO plans, please review the plan of care and approve it. It will need to be FAXED BACK to us at [phone] for Medicare purposes. For Medicare only, by signing this I certify the plan of care. Please let me know if there are questions or concerns regarding this plan of care. Physician Signature: Date:
--- NOTE | 2023-05-13 09:25 | HP.SP.EV_ITS ---
History History Date of Eval: 05/10/23 Attending Doctor: Referring Doctor: Reason for Referral: R CRANIOPLASTY/STROKE RX HERE Previous speech therapy: Yes Results: Rehab D/C Summary from 05/03/23: Excellent participation in treatment w/strong motivation to improve. Pt met all established goals w/ cueing. The patient continues to demonstrate deficits in attention, memory, executive funct ions and L neglect, although markedly improved, and will benefit from continued ST following discharge. Other Relevant Medical History/Diagnoses/Surgery: REBEKA AKERS is a 67 year old female who was recently discharged from [facility] on 05/03/23 following rehab for a right cranioplasty. In November 2022, skull cap was removed d/t infection following initial surgery in June 2022. Trialed new infusions of antibiotics. 04/03/23 right hemisphere skull cap replaced with a polymer cap. Left neglect is getting better since the skull cap was replaced per Pt. Rebeka reports having trouble getting herself organized, dates, telling time, memory, and navigating her phone. Her sister completes their finances. She has switched pharmacy to [facility] so medications come prepackaged by date, time, and dosage -- Rebeka reports her still is the one in charge of providing her the medicine. She currently just started keeping a hard calendar but is having a hard time filling it out. Smoking Status: Never smoker Hx Smoking: No Hx Tobacco Use: No Pain Is pain an issue with your current prescribed condition?: No Personal Preferred language: [place] Patient Allergies Allergies Allergies: Allergies latex Allergy (Verified 01/01/23 12:57) Rash naproxen Allergy (Verified 01/01/23 12:57) Rash Ohnahox-RYL-MvC Reductase Inhibitor [Mcrxksx-Usq-Kxk Reductase Inhibitor] Allergy (Verified 01/01/23 12:57) MUSCLE ACHES CLQT CLQT CLQT Administered: Yes CLQT: Cognitive Linguistic Quick Test (CLQT) is a criterion - referenced assessment designed for adults between the ages of 18 and 89 with known or suspected neurological dysfuntions. The CLQT is to assess strength and weaknesses in five cognitive domains. Severity ratings are within normal limits, mild, moderate, severe deficits. The subtests are as follows: Date: 05/10/23 Attention Attention: Mild Memory Memory: Mild Executive Functions Executive Functions: Severe Language Language: WNL Visuospatial Skills Visuospatial Skills: Moderate Composite Severity Rating Composite Severity Rating: Mild Clock Drawing Severity Rating Clock Drawing Severity Rating: WNL CLQT Comments Cognitive Domain Scores: -: ? Personal Facts (memory and language ability): 01/01 (MEETS CRITERION CUT OFF) ? Symbol Cancellation (nonlinguistic task of visual attention and perception, integrity of the upper/lower quadrants of the left/right visual yung): 05/07 (MEETS CRITERION CUT OFF -- during performance of this task, Pt finding the last three symbols in the last 15 sec. of task. Two of the three symbols were on the left hand side of the page). ? Confrontation Naming (aphasia, perseveration, verbosity): 03/05 (MEETS CRITERION CUT OFF) ? Clock Drawing (screening of all cognitive domains): (MEETS CRITERION CUT OFF) ? Story Retelling (memory and comprehension, arousal, attention, storage capacity, narrative skills): 12/03 (MEETS CRITERION CUT OFF) ? Symbol Trails (nonlinguistic task to assess planning, self-monitoring, working memory, and visual attention, and impulsivity): 06/05 (DOES NOT MEETS CRITERION CUT OFF -- While completing this task, Pt demonstrated difficulty alternating s izes and following the trail. Pt showing no awareness of errors, therefore there was no self correction) ? Generative Naming (word retrieval skills, perseveration): 09/02 (DOES NOT MEETS CRITERION CUT OFF) ? Design Memory (nonlinguistic task to assess visual discrimination & analysis, attention, and visual memory, impulsivity, perseveration): 09/29 (MEETS CRITERION CUT OFF) ? Mazes (planning, mental flexibility, self-monitoring, visual discrimination, and impulsivity): (DOES NOT MEETS CRITERION CUT OFF -- During completion of both mazes, Pt demonstrated significant difficulty with planning ahead to see where the path blocks would be and was not able to back track and find a new path showing reduced mental flexibility.) ? Design Generation (nonlinguistic task of creativity and mental flexibility): 09/06 (DOES NOT MEETS CRITERION CUT OFF -- During completion of this task, Pt often forgetting to include 4 lines in her designs. She would count while she was drawing and would at times assign two numbers to only one line -- Pt with no awareness. On one occasion, she started counting for the next design before moving on (e.g., 1, 2, 3, 4, 1 --> then moved on to creating another shape while continuing her counting 2, 3, 4)). Severity Rating: -: Domain Scores: Attention = 139/215 (MILD); Memory = 152/185 (MILD); Executive Functioning = 9/40 (SEVERE); Language = 29/37 (WNL); Visuospatial Skills = 50/105 (MODERATE); Clock Drawing = 13/13 (WNL). Overall, Pt scoring with a mild cognitive deficit, however Pt demonstrating more severe cognitive deficits with executive functioning and visuospatial skills. Reference: Neuro-QoL instrument Radiation Oncology Patient Plan Plan Plan: Will recommend Pt for weekly outpatient speech therapy to address mod- severe cognitive impairment characterized by deficits in immediate and short- term memory, executive functioning, problem solving/reasoning, and cognitive flexibility. Pt would benefit from training in compensatory strategies for recall as well as cognitive training to improve cognitive functioning. Without skilled ST services, the Pt is at risk for decreased independence completing daily living tasks. Recommendations Treatment Warranted: Yes Treatment Warranted: Cognition Progress Prognosis: Good Frequency Frequency: 1-2x /Week Duration: 3 Months Goals that are Established Determination:: Goals will be added/modified as deemed necessary and appropriate. Therapy will be discontinued when results of re-evaluation indicate therapy is no longer needed or lack of progress has been documented. Goal #1-5 Goal #1: Rebeka will complete complex problem solving, reasoning, and executive function tasks including but not limited to functional ADL (i.e., paying bills, meal planning, telling time, keeping a calendar) with 80% acc given min verbal and logical cues across 3 measured sessions. Goal #2: Reebka will navigate her cell phone with no more than 3 verbal cues in order to make including but not limited to a phone call to a family member, send a text, etc across 3 measured sessions. Goal #3: Rebeka will complete basic to mod complex immediate, short-term, and working memory tasks with 80% acc independently across 3 measured opportunities. Goal #4: Rebeka will complete basic sustained, alternating, and divided attention tasks with use of scanning compensatory techniques to address left neglect with 80% acc independently across 3 measured opportunities. Education Patient has Indicated that the Following Identified Educational Needs: None The Patient has indicated that they have no educational or learning abilities that may effect their care.: Yes Patient Instruction Patient Education: Diagnosis, Treatment Plan and Goals Person Taught: Patient and Family Teaching Method: Discussion and Demonstration Response to teaching: Return demonstration and Verbalize understanding
--- NOTE | 2023-06-14 15:36 | HP.SPREEV_ITS ---
Patient Allergies Allergies Allergies: Allergies latex Allergy (Verified 01/01/23 12:57) Rash naproxen Allergy (Verified 01/01/23 12:57) Rash Vcpgzfx-ROL-SkY Reductase Inhibitor [Irvljjc-Rgo-Ofu Reductase Inhibitor] Allergy (Verified 01/01/23 12:57) MUSCLE ACHES Previous/Current Goals Goals 1-5 Previous Goal #1: Rebeka will complete complex problem solving, reasoning, and executive function tasks including but not limited to functional ADL (i.e., paying bills, meal planning, telling time, keeping a calendar) with 80% acc given min verbal and logical cues across 3 measured sessions. Goal 1 Status: PROGRESSING: Rebeka completed problem solving and executive functioning task via finding med box errors with 88% acc (56/63) given min-mod verbal and logical cues. Rebeka arrived to a therapy with multiple appt reminder cards, three therapy appts print outs, and multiple sticky notes with questions on them about appt conflicts. Pt appeared flustered, very upset and stressed. Rebeka reporting having the layout of the therapy appts was confusing to her, so ST printed out a monthly calendar sheet and was going to have Rebeka write all appts on the calendar, but she was too cognitively overwhelmed this date. Suspect Pt would have difficult transferring from therapy appt print out to calendar (see below in goal 3 re: word search puzzle task). Previous Goal #2: Rebeka will navigate her cell phone with no more than 3 verbal cues in order to make including but not limited to a phone call to a family member, send a text, etc across 3 measured sessions. Goal 2 Status: GOAL MET: Rebeka navigated her cell phone with deleting unused apps from her home screen. Following mod (3x) examples of how to complete task, Pt functional in deleting unused apps. In a follow up session where Rebeka's progress was checked on her deleting unused apps at home, it was observed that she missed going through 3 folders and at least 3 apps. Rebeka taking a phone call during session with no difficulties answering the phone or hanging up the phone. Previous Goal #3: Rebeka will complete basic to mod complex immediate, short-term , and working memory tasks with 80% acc independently across 3 measured opportunities. Goal 3 Status: PROGRESSING: Rebeka completed a word search task to target immediate recall and scanning. Rebeka often functional in spontaneously finding a word in the puzzle, however she would leave the puzzle prior to highlighting the word she found in order to cross it off the target word list. On 8 of 12 occasions (66% of the time), Rebeka then returning to the puzzle and forgot where the word was she just found. Pt completed a memory and mental manipulation task, 4 word order, with 20% acc I, increased to 70% acc with repetition & up to max cues. Pt benefited from repeating the words first before manipulating them. Pt asked to see ST's wedding photos & did not initially recall that she saw them a few weeks ago. After seeing the photos, pt stated she recalled. Previous Goal #4: Rebeka will complete basic sustained, alternating, and divided attention tasks with use of scanning compensatory techniques to address left neglect with 80% acc independently across 3 measured opportunities. Goal 4 Status: PROGRESSING:Rebeka completed med box error task and consistently neglected Saturday and Saturday on the left hand side of the page and benefited from min verbal cue of did we check all the days on 3 occasions to pull attention to the left. Pt completed an alternating attention activity (connecting colors & dots) with max cues from the ST. Pt had difficulty with remembering which dot she left off on. Rebeka completing a word search task to target left neglect. The puzzle is a 12x12 box. Throughout the task Rebeka was independent with finding words spontaneously, however was neglectful of the 3 most left columns. When ST would cue Pt to find a specific word (often on the left), this is when Pt would recall that she needed to attend to left side of puzzle. CLQT CLQT CLQT Administered: Yes CLQT: Cognitive Linguistic Quick Test (CLQT) is a criterion - referenced assessment designed for adults between the ages of 18 and 89 with known or suspected neurological dysfuntions. The CLQT is to assess strength and weaknesses in five cognitive domains. Severity ratings are within normal limits, mild, moderate, severe deficits. The subtests are as follows: Date: 05/10/23 Attention Attention: Mild Memory Memory: Mild Executive Functions Executive Functions: Severe Language Language: WNL Visuospatial Skills Visuospatial Skills: Moderate Composite Severity Rating Composite Severity Rating: Mild Clock Drawing Severity Rating Clock Drawing Severity Rating: WNL CLQT Comments Cognitive Domain Scores: -: ? Personal Facts (memory and language ability): 01/01 (MEETS CRITERION CUT OFF) ? Symbol Cancellation (nonlinguistic task of visual attention and perception, integrity of the upper/lower quadrants of the left/right visual yung): 05/07 (MEETS CRITERION CUT OFF -- during performance of this task, Pt finding the last three symbols in the last 15 sec. of task. Two of the three symbols were on the left hand side of the page). ? Confrontation Naming (aphasia, perseveration, verbosity): 03/05 (MEETS CRITERION CUT OFF) ? Clock Drawing (screening of all cognitive domains): (MEETS CRITERION CUT OFF) ? Story Retelling (memory and comprehension, arousal, attention, storage capacity, narrative skills): 12/03 (MEETS CRITERION CUT OFF) ? Symbol Trails (nonlinguistic task to assess planning, self-monitoring, working memory, and visual attention, and impulsivity): 06/05 (DOES NOT MEETS CRITERION CUT OFF -- While completing this task, Pt demonstrated difficulty alternating sizes and following the trail. Pt showing no awareness of errors, therefore there was no self correction) ? Generative Naming (word retrieval skills, perseveration): 09/02 (DOES NOT MEETS CRITERION CUT OFF) ? Design Memory (nonlinguistic task to assess visual discrimination & analysis, attention, and visual memory, impulsivity, perseveration): 09/29 (MEETS CRITERION CUT OFF) ? Mazes (planning, mental flexibility, self-monitoring, visual discrimination, and impulsivity): (DOES NOT MEETS CRITERION CUT OFF -- During completion of both mazes, Pt demonstrated significant difficulty with planning ahead to see where the path blocks would be and was not able to back track and find a new path showing reduced mental flexibility.) ? Design Generation (nonlinguistic task of creativity and mental flexibility): 09/06 (DOES NOT MEETS CRITERION CUT OFF -- During completion of this task, Pt often forgetting to include 4 lines in her designs. She would count while she was drawing and would at times assign two numbers to only one line -- Pt with no awareness. On one occasion, she started counting for the next design before moving on (e.g., 1, 2, 3, 4, 1 --> then moved on to creating another shape while continuing her counting 2, 3, 4)). Severity Rating: -: Domain Scores: Attention = 139/215 (MILD); Memory = 152/185 (MILD); Executive Functioning = 9/40 (SEVERE); Language = 29/37 (WNL); Visuospatial Skills = 50/105 (MODERATE); Clock Drawing = 13/13 (WNL). Overall, Pt scoring with a mild cognitive deficit, however Pt demonstrating more severe cognitive deficits with executive functioning and visuospatial skills. Reference: Neuro-QoL instrument In past 7 days I had to read something several times to understand it: Very often (several times a day) My thinking was slow: Very often (several times a day) I had to work really hard to pay attention or i would make a mistake: Very often (several times a day) I had trouble concentrating: Very often (several times a day) How much DIFFICULTY do you currently reading & following complex instructions (e.g. directions for new medication: A little planning for & keeping appts that are not part of weekly routine: Somewhat managing your time to do most of your daily activities: Somewhat learning new tasks or instructions: Somewhat Comment Comment: Pt's , Deniz, expressing concerns re: Pt's attention skills and her restlessness when it comes to time management. He asked for referral suggestions for psychologists, and ST stated that she was unable to provided those specific recommendations, but that he should keep track of what he is seeing and tell their neurologist at their next appt here in a couple weeks. Neuro-QOL Score Raw Score: 17 T - Score: 32.0 Radiation Oncology Patient Plan Plan Plan: Will recommend Pt to continue with 1-2x weekly outpatient speech therapy to address mod-severe cognitive impairment characterized by deficits in immediate and short-term memory, executive functioning, problem solving/reasoning, and cognitive flexibility. Pt would continue to benefit from training in compensatory strategies for recall as well as cognitive training to improve cognitive functioning. Without skilled ST services, the Pt is at risk for decreased independence and safety with completing daily living tasks. Recommendations Treatment Warranted: Yes Treatment Warranted: Cognition Progress Prognosis: Good Frequency Frequency: 1-2x /Week Duration: 3 Months Goals that are Established Determination:: Goals will be added/modified as deemed necessary and appropriate. Therapy will be discontinued when results of re-evaluation i ndicate therapy is no longer needed or lack of progress has been documented. Goal #1-5 Goal #1: Rebeka will complete complex problem solving, reasoning, and executive function tasks including but not limited to functional ADL (i.e., paying bills, meal planning, telling time, keeping a calendar) with 80% acc given min verbal and logical cues across 3 measured sessions. Goal #2: Rebeka will complete basic to mod complex immediate, short-term, and working memory tasks with 80% acc independently across 3 measured opportunities. Goal #3: Rebeka will complete basic sustained, alternating, and divided attention tasks with use of scanning compensatory techniques to address left neglect with 80% acc independently across 3 measured opportunities. Goal #4: . Education Patient has Indicated that the Following Identified Educational Needs: None The Patient has indicated that they have no educational or learning abilities that may effect their care.: Yes Patient Instruction Patient Education: Diagnosis, Treatment Plan and Goals Person Taught: Patient and Family Teaching Method: Discussion and Demonstration Response to teaching: Return demonstration and Verbalize understanding
--- NOTE | 2023-07-03 10:51 | HP.PTDCSUM_ITS ---
Discharge Summary D/C summary: It has been my pleasure to treat HARSHAL AKERS referred by Dr. Corey Portillo MD, with the diagnosis of cranioplasty, stroke for a total of 11 visit(s). Discharge Date: 07/03/23 Please see the following information for a summary of their discharge status. Subjective Subjective: Doing home exercises. Will continue gym exercises on own and has a program form operations trainer. I am doing fine at home. Will see surgeon 07/14 and will check plastic prosthesis in head. Activities normal at home Pain L shoulder and hand: Pain Intensity (Out of 10): 3 Overall Improvement % Improvement: 75 Objective Objective/Function: Good FGa score. Walking well and without deficits, steps reciprocal with one rail. overall doing well and feels she can workout I in gy, for lower body and will cotninue OT and speech for UE. Goals Goal 1:: FGA Goal Progress: Progressing Goal 2:: 16 on 30 sec sit to stand Goal Progress: Goal Met Goal 3:: Pt feel 99% back tonormal in fatigue adn mobility Goal Progress: Progressing Goal 4:: LEFS score 60 Goal Progress: Goal Met Goal 5:: maintain improvements in balance and strength adn funciton withotu regular PT x 2 weeks Goal Progress: Goal Met Plan Plan: d/c PT D/C Information Discharge Comments: d./c to I gym program d/c sentence: If there are questions or concerns regarding this patient's physical therapy, please feel free to call me at [phone]. Thank you for the referral of this patient. Sincerely, Gamal Whitfield, DPT, OCS, CSCS Balance/Gait/Functional tests Balance/Special Test Scores Functional Gait Assessment Score: 28 % Disability: 6.6700 CATSIB Score (Max score 120 seconds): 110 Lower Extremity Functional Score: 58 TUG Test Time Seconds: 8 Tug Test: <10 sec.=free mobile 30 Second Chair Rise Test Seconds: 17 Improvement % Improvement: 75
--- NOTE | 2023-08-27 14:03 | HP.SP.REEV ---
Visit History Visit Info Date of Eval: 05/10/23 Visit: 1 Patient's Approved Number of Visits: 10 Insurance Date Limit: 05/26/24 Cro: MARY ANNE Gomez Attending Doctor: Referring Doctor: Reason for Referral: R CRANIOPLASTY/STROKE RX HERE Previous speech therapy: Yes Results: Rehab D/C Summary from 05/03/23: Excellent participation in treatment w/strong motivation to improve. Pt met all established goals w/ cueing. The patient continues to demonstrate deficits in attention, memory, executive functions and L neglect, although markedly improved, and will benefit from continued ST following discharge. Other Relevant Medical History/Diagnoses/Surgery: REBEKA AKERS is a 67 year old female who was recently discharged from [facility] on 05/03/23 following rehab for a right cranioplasty. In November 2022, skull cap was removed d/t infection following initial surgery in June 2022. Trialed new infusions of antibiotics. 04/03/23 right hemisphere skull cap replaced with a polymer cap. Left neglect is getting better since the skull cap was replaced per Pt. Rebeka reports having trouble getting herself organized, dates, telling time, memory, and navigating her phone. Her sister completes their finances. She has switched pharmacy to [facility] so medications come prepackaged by date, time, and dosage -- Rebeka reports her still is the one in charge of providing her the medicine. She currently just started keeping a hard calendar but is having a hard time filling it out. Rebeka recently stated that she has started participated in counseling. Smoking Status: Never smoker Diagnosis Diagnosis: Moderate Cognitive Disorder Pain Is pain an issue with your current prescribed condition?: No Personal Preferred language: Polish Patient Allergies Allergies Allergies: Allergies latex Allergy (Verified 01/01/23 12:57) Rash naproxen Allergy (Verified 01/01/23 12:57) Rash Lvaibly-QSE-DdT Reductase Inhibitor [Nxwfooi-Gqq-Ftv Reductase Inhibitor] Allergy (Verified 01/01/23 12:57) MUSCLE ACHES Previous/Current Goals Goals 1-5 Previous Goal #1: Rebeka will complete complex problem solving, reasoning, and executive function tasks including but not limited to functional ADL (i.e., paying bills, meal planning, telling time, keeping a calendar) with 80% acc given min verbal and logical cues across 3 measured sessions. Goal 1 Status: PROGRESSING: Rebeka completed problem solving and executive functioning task via identifying rules that playing cards were divided into with 0% acc independently (e.g., red vs black, all diamonds, and all face cards) and benefited from mod-max verbal and logical cues to improve to 66%. Rebeka completed drawing a clock and setting hands to five after 11 with an oblong oval shape for the [place], placing 11 and 10 in the one and two place, and placing a 1 and 2 in the eleven and ten place, with only one hand. Rebeka also having difficulty with basic math word problem (e.g., if you leave the house at 10:30 and arrive at your destination at 11:[address]?). Rebeka completed a game of Clever Clouditaire with mod assist from ST to target task initiation and problem solving skills. She required 12 cues throughout the task. Rebeka stating she plays solitaire all the time on her iPad. Previous Goal #2: Rebeka will complete basic to mod complex immediate, short-term, and working memory tasks with 80% acc independently across 3 measured opportunities. Goal 2 Status: PROGRESSING: Rebeka completed working memory task via naming food items that correlate with letters of the alphabet (e.g., apple, banana, carrots, donuts) where she was tasked with starting the list over after one new word was added by either ST or patient. Across 11 trials of starting from the beginning, Pt making a total of 13 errors. On the last trial, she recited 23 words corresponding to the alphabet with 82% acc (19/23). Rebeka completed category inclusion task where she was given a list of 4 words and asked which ones went together with Pt completing with 88% acc independently. Pt benefiting from repeating the words back to ST prior to answering the questions. Rebeka completed category exclusion task where she was given a list of 5 words and asked which words do not belong with 33% acc. Rebeka having difficulty with repeating all 5 words back which affected her acc on the questions. Education provided re: linking the words together with a short story - Pt receptive to trialing. Previous Goal #3: Rebeka will complete basic sustained, alternating, and divided attention tasks with use of scanning compensatory techniques to address left neglect with 80% acc independently across 3 measured opportunities. Goal 3 Status: PROGRESSING: Rebeka completed an alternating and sustained attention task via via naming food items that correlate with letters of the alphabet (e.g., apple, banana, carrots, donuts) where she was tasked with starting the list over after one new word was added by either ST or patient. Five times throughout the task, one of the words would remind the Pt about a story and she would lose focus, however in all five instances she was able to pull focus back to task independently. Rebeka participated in mod complex problem solving, reasoning, and executive functioning via card task of high-low where she was given a pyramid layout of cards and only allowed to choose from the ones that were not covered by another to select a number one higher/lower than the target card in front of her. Rebeka with evidence of left neglect 5x throughout task and benefited from mod verbal cues to attend to left side options. Rebeka required verbal and visual cues to attend to the left side of the solitaire board 7x throughout task. Rebeka completed following directions presented auditorily with 4 components with completing between 75-100% acc and benefited from ST repeating direction and Pt self identifying where her errors were without ST's help. Previous Goal #4: . Objective Cog/Ling/Com Test Administered Yenkqsxuo-Gkyurjwhyx-Uqskpczvnmumt Assessment Administered: Yes Bwdzudlkp-Ppzhtunbsz-Ygnlcaraqsgsd Assessment: Cognitive ? Linguistic skills were evaluated using patient/family interview, skilled observation and informal evaluation through tasks completed by the patient. Recall Repeating Words: Rebeka completed category inclusion task where she was given a list of 4 words and asked which ones went together with Pt completing with 88% acc independently. Pt benefiting from repeating the words back to ST prior to answering the questions. Rebeka completed category exclusion task where she was given a list of 5 words and asked which words do not belong with 33% acc. Rebeka having difficulty with repeating all 5 words back which affected her acc on the questions. Education provided re: linking the words together with a short story - Pt receptive to trialing. Medication Correctly stating instructions of medications: Mild Completing medications independently: Moderate Numerical Skills Determining Change: Rebeka completes math word problems such as (you are buying $13.45 of groceries, how much change would you receive back from a $20 bill?) with between 10-40% acc independently and benefits from mod-max verbal and logical cues to improve to 80-100%. Telling Time: Rebeka nikki a clock and set the hands to five after 11 with an oblong oval shape for the [place], placing 11 and 10 in the one and two place, and placing a 1 and 2 in the eleven and ten place, with only one hand. Numerical Work Problems: Rebeka has difficulty with basic math word problem for third grade level time word problems (e.g., if you leave the house at 10:30 and arrive at your destination at 11:[address]?). Organization Identifying which does not belong: Moderate Problem Solving Simple: Mild Complex: Moderate Judgement & Reasoning Judgement/Reasoning: Mild and Moderate Deductive Reasoning Deductive Reasoning: Moderate Cognitive Linguistic Supervision/Saftey Awareness of deficits: Moderate Being left home alone: Mild Managing medications: Mild Managing finances: Moderate Reference: Neuro-QoL instrument In past 7 days I had to read something several times to understand it: Sometimes (2-3 times) My thinking was slow: Often (once a day) I had to work really hard to pay attention or i would make a mistake: Often (once a day) I had trouble concentrating: Often (once a day) How much DIFFICULTY do you currently reading & following complex instructions (e.g. directions for new medication: Somewhat planning for & keeping appts that are not part of weekly routine: Somewhat managing your time to do most of your daily activities: A little learning new tasks or instructions: Somewhat Neuro-QOL Score Raw Score: 22 T - Score: 37.0 Radiation Oncology Patient Plan Plan Plan: Will recommend Pt to continue with 1-2x weekly outpatient speech therapy to address mod-severe cognitive impairment characterized by deficits in immediate and short-term memory, executive functioning, problem solving/reasoning, and cognitive flexibility. Pt would continue to benefit from training in compensatory strategies for recall as well as cognitive training to improve cognitive functioning. Without skilled ST services, the Pt is at risk for decreased independence and safety with completing daily living tasks. Recommendations Treatment Warranted: Yes Treatment Warranted: Cognition Progress Prognosis: Good Frequency Frequency: 1-2x /Week Duration: 3 Months Goals that are Established Determination:: Goals will be added/modified as deemed necessary and appropriate. Therapy will be discontinued when results of re-evaluation indicate therapy is no longer needed or lack of progress has been documented. Goal #1-5 Goal #1: Rebeka will complete complex problem solving, reasoning, and executive function tasks including but not limited to functional ADL (i.e., paying bills, meal planning, telling time, keeping a calendar) with 80% acc given min verbal and logical cues across 3 measured sessions. Goal #2: Rebeka will complete basic to mod complex immediate, short-term, and working memory tasks with 80% acc independently across 3 measured opportunities. Goal #3: Rebeka will complete basic sustained, alternating, and divided attention tasks with use of scanning compensatory techniques to address left neglect with needing less than 3 verbal cues to attend to left side per activity across 3 measured opportunities. Goal #4: . Education Patient has Indicated that the Following Identified Educational Needs: None The Patient has indicated that they have no educational or learning abilities that may effect their care.: Yes Patient Instruction Patient Education: Diagnosis, Treatment Plan and Goals Person Taught: Patient and Family Teaching Method: Discussion and Demonstration Response to teaching: Return demonstration and Verbalize understanding
--- NOTE | 2023-09-30 12:22 | HP.SP.REEV ---
Visit History Visit Info Date of Eval: 05/10/23 Visit: 1 Patient's Approved Number of Visits: 10 Insurance Date Limit: 05/26/24 Assistant Press Operator: MARY ANNE Gomez Attending Doctor: Referring Doctor: Reason for Referral: R CRANIOPLASTY/STROKE RX HERE Previous speech therapy: Yes Results: Rehab D/C Summary from 05/03/23: Excellent participation in treatment w/strong motivation to improve. Pt met all established goals w/ cueing. The patient continues to demonstrate deficits in attention, memory, executive functions and L neglect, although markedly improved, and will benefit from continued ST following discharge. Other Relevant Medical History/Diagnoses/Surgery: REBEKA AKERS is a 67 year old female who was recently discharged from [facility] on 05/03/23 following rehab for a right cranioplasty. In November 2022, skull cap was removed d/t infection following initial surgery in June 2022. Trialed new infusions of antibiotics. 04/03/23 right hemisphere skull cap replaced with a polymer cap. Left neglect is getting better since the skull cap was replaced per Pt. Rebeka reports having trouble getting herself organized, dates, telling time, memory, and navigating her phone. Her sister completes their finances. She has switched pharmacy to [facility] so medications come prepackaged by date, time, and dosage -- Rebeka reports her still is the one in charge of providing her the medicine. She currently just started keeping a hard calendar but is having a hard time filling it out. Rebeka recently stated that she has started participated in counseling. Smoking Status: Never smoker Diagnosis Diagnosis: Moderate Cognitive Disorder Pain Is pain an issue with your current prescribed condition?: No Personal Preferred language: Taiwanese Patient Allergies Allergies Allergies: Allergies latex Allergy (Verified 09/15/23 13:54) Rash naproxen Allergy (Verified 09/15/23 13:54) Rash Irvygdq-CSF-JhR Reductase Inhibitor [Ciuibjh-Pae-Kix Reductase Inhibitor] Allergy (Verified 09/15/23 13:54) MUSCLE ACHES Previous/Current Goals Goals 1-5 Previous Goal #1: Rebeka will complete complex problem solving, reasoning, and executive function tasks including but not limited to functional ADL (i.e., paying bills, meal planning, telling time, keeping a calendar) with 80% acc given min verbal and logical cues across 3 measured sessions. Goal 1 Status: PROGRESSING: ST often printing monthly calendars for Pt to put therapy appts on d/t the front office administrator print out being too confusing for her. Pt typically benefiting from at least mod assist with scanning and transferring to the calendar along with using a white sheet of paper to cover up the dates she already transferred. Pt required mod cues to track the page and remember which date she used. ST also had pt move the check nevarez to the middle of the page due to frequently missing the check nevarez on the left side of the paper. Pt covered the previous line up during 08/02 opp I. - Rebeka participated in a card game of Swivl with only min assist from ST to target task initiation and problem solving skills. She required 8 cues throughout the task which is 4 less than the last time she completed this task. Rebeka often forgetting to flip cards over after uncovering. She only needed a visual gesture to recall needing to flip it over. - Sudoku was attempted with max cues at the end of the session and 25% acc. Scanning was targeted during this activity. Previous Goal #2: Rebeka will complete basic to mod complex immediate, short-term, and working memory tasks with 80% acc independently across 3 measured opportunities. Goal 2 Status: PROGRESSING: Rebeka participated in working on sudoku puzzle this date and benefited from min visual cues of keeping small numbers in the corner of possible numbers for that box d/t difficulty with recalling which ones could go in each. Keeping the numbers in the corners improved her working memory to 50% acc. Rebeka participated in short term memory task using a memory strategy of association to recall 4 related words after verbal presentation of the words with 66-75% acc. Previous Goal #3: Rebeka will complete basic sustained, alternating, and divided attention tasks with use of scanning compensatory techniques to address left neglect with needing less than 3 verbal cues to attend to left side per activity across 3 measured opportunities. Goal 3 Status: PROGRESSING: Pt recalled 3 of the rules/strategies of sudoku today. Pt required max cues to complete [address] the box that we were working on and used a post it note with the numbers that are still needed to screen printer helper the pt. Rebeka required 6 verbal cues to attend to focusing on the number she was looking for in sudoku vs. being distracted by other numbers in the box or column. Rebeka required 3 verbal cues to attend to the left side of the Swivl playing field which is 4 less than the last time she attempted this task. Previous Goal #4: . Objective Cog/Ling/Com Test Administered Djosvglou-Cftycuwdsr-Zqvwhztdyitto Assessment Administered: Yes Geplgmxia-Gdfcgdlkvw-Rcaxtdtkejnda Assessment: Cognitive ? Linguistic skills were evaluated using patient/family interview, skilled observation and informal evaluation through tasks completed by the patient. Recall Repeating Words: Rebeka completed category inclusion task where she was given a list of 4 words and asked which ones went together with Pt completing with 88% acc independently. Pt benefiting from repeating the words back to ST prior to answering the questions. Rebeka completed category exclusion task where she was given a list of 5 words and asked which words do not belong with 33% acc. Rebeka having difficulty with repeating all 5 words back which affected her acc on the questions. Education provided re: linking the words together with a short story - Pt receptive to trialing. Medication Correctly stating instructions of medications: Mild Completing medications independently: Moderate Numerical Skills Determining Change: Rebeka completes math word problems such as (you are buying $13.45 of groceries, how much change would you receive back from a $20 bill?) with between 10-40% acc independently and benefits from mod-max verbal and logical cues to improve to 80-100%. Telling Time: Rebeka nikki a clock and set the hands to five after 11 with an oblong oval shape for the kaibab, placing 11 and 10 in the one and two place, and placing a 1 and 2 in the eleven and ten place, with only one hand. Numerical Work Problems: Rebeka has difficulty with basic math word problem for third grade level time word problems (e.g., if you leave the house at 10:30 and arrive at your destination at 11:[address]?). Organization Identifying which does not belong: Moderate Problem Solving Simple: Mild Complex: Moderate Judgement & Reasoning Judgement/Reasoning: Mild and Moderate Deductive Reasoning Deductive Reasoning: Moderate Cognitive Linguistic Supervision/Saftey Awareness of deficits: Moderate Being left home alone: Mild Managing medications: Mild Managing finances: Moderate CLQT CLQT CLQT Administered: Yes CLQT: Cognitive Linguistic Quick Test (CLQT) is a criterion - referenced assessment designed for adults between the ages of 18 and 89 with known or suspected neurological dysfuntions. The CLQT is to assess strength and weaknesses in five cognitive domains. Severity ratings are within normal limits, mild, moderate, severe deficits. The subtests are as follows: Date: 05/10/23 Attention Attention: Mild Memory Memory: Mild Executive Functions Executive Functions: Severe Language Language: WNL Visuospatial Skills Visuospatial Skills: Moderate Composite Severity Rating Composite Severity Rating: Mild Clock Drawing Severity Rating Clock Drawing Severity Rating: WNL CLQT Comments Cognitive Domain Scores: -: ? Personal Facts (memory and language ability): 01/01 (MEETS CRITERION CUT OFF) ? Symbol Cancellation (nonlinguistic task of visual attention and perception, integrity of the upper/lower quadrants of the left/right visual yung): 05/07 (MEETS CRITERION CUT OFF -- during performance of this task, Pt finding the last three symbols in the last 15 sec. of task. Two of the three symbols were on the left hand side of the page). ? Confrontation Naming (aphasia, perseveration, verbosity): 03/05 (MEETS CRITERION CUT OFF) ? Clock Drawing (screening of all cognitive domains): (MEETS CRITERION CUT OFF) ? Story Retelling (memory and comprehension, arousal, attention, storage capacity, narrative skills): 12/03 (MEETS CRITERION CUT OFF) ? Symbol Trails (nonlinguistic task to assess planning, self-monitoring, working memory, and visual attention, and impulsivity): 06/05 (DOES NOT MEETS CRITERION CUT OFF -- While completing this task, Pt demonstrated difficulty alternating sizes and following the trail. Pt showing no awareness of errors, therefore there was no self correction) ? Generative Naming (word retrieval skills, perseveration): 09/02 (DOES NOT MEETS CRITERION CUT OFF) ? Design Memory (nonlinguistic task to assess visual discrimination & analysis, attention, and visual memory, impulsivity, perseveration): 09/29 (MEETS CRITERION CUT OFF) ? Mazes (planning, mental flexibility, self-monitoring, visual discrimination, and impulsivity): (DOES NOT MEETS CRITERION CUT OFF -- During completion of both mazes, Pt demonstrated significant difficulty with planning ahead to see where the path blocks would be and was not able to back track and find a new path showing reduced mental flexibility.) ? Design Generation (nonlinguistic task of creativity and mental flexibility): 09/06 (DOES NOT MEETS CRITERION CUT OFF -- During completion of this task, Pt often forgetting to include 4 lines in her designs. She would count while she was drawing and would at times assign two numbers to only one line -- Pt with no awareness. On one occasion, she started counting for the next design before moving on (e.g., 1, 2, 3, 4, 1 --> then moved on to creating another shape while continuing her counting 2, 3, 4)). Severity Rating: -: Domain Scores: Attention = 139/215 (MILD); Memory = 152/185 (MILD); Executive Functioning = 9/40 (SEVERE); Language = 29/37 (WNL); Visuospatial Skills = 50/105 (MODERATE); Clock Drawing = 13/13 (WNL). Overall, Pt scoring with a mild cognitive deficit, however Pt demonstrating more severe cognitive deficits with executive functioning and visuospatial skills. Reference: Neuro-QoL instrument In past 7 days I had to read something several times to understand it: Sometimes (2-3 times) My thinking was slow: Often (once a day) I had to work really hard to pay attention or i would make a mistake: Often (once a day) I had trouble concentrating: Often (once a day) How much DIFFICULTY do you currently reading & following complex instructions (e.g. directions for new medication: Somewhat planning for & keeping appts that are not part of weekly routine: Somewhat managing your time to do most of your daily activities: A little learning new tasks or instructions: Somewhat Comment Comment: Pt's , Deniz, expressing concerns re: Pt's attention skills and her restlessness when it comes to time management. He asked for referral suggestions for psychologists, and ST stated that she was unable to provided those specific recommendations, but that he should keep track of what he is seeing and tell their neurologist at their next appt here in a couple weeks. Neuro-QOL Score Raw Score: 22 T - Score: 37.0 Radiation Oncology Patient Plan Plan Plan: Will recommend Pt to continue with 1-2x weekly outpatient speech therapy to address mod-severe cognitive impairment characterized by deficits in immediate and short-term memory, executive functioning, problem solving/reasoning, and cognitive flexibility. Pt would continue to benefit from training in compensatory strategies for recall as well as cognitive training to improve cognitive functioning. Without skilled ST services, the Pt is at risk for decreased independence and safety with completing daily living tasks. Recommendations Treatment Warranted: Yes Treatment Warranted: Cognition Progress Prognosis: Good Frequency Frequency: 1-2x /Week Duration: 3 Months Goals that are Established Determination:: Goals will be added/modified as deemed necessary and appropriate. Therapy will be discontinued when results of re-evaluation indicate therapy is no longer needed or lack of progress has been documented. Goal #1-5 Goal #1: Rebeka will complete complex problem solving, reasoning, and executive function tasks including but not limited to functional ADL (i.e., paying bills, meal planning, telling time, keeping a calendar) with 3 or less verbal, logical, or visual cues across 3 measured sessions. Goal #2: Rebeka will complete basic to mod complex immediate, short-term, and working memory tasks with with 3 or less verbal, visual, or logical cues across 3 measured opportunities. Goal #3: Rebeka will complete basic sustained, alternating, and divided attention tasks with use of scanning compensatory techniques to address left neglect with needing less than 3 verbal cues to attend to left side per activity across 3 measured opportunities. Goal #4: . Education Patient has Indicated that the Following Identified Educational Needs: None The Patient has indicated that they have no educational or learning abilities that may effect their care.: Yes Patient Instruction Patient Education: Diagnosis, Treatment Plan and Goals Person Taught: Patient and Family Teaching Method: Discussion and Demonstration Response to teaching: Return demonstration and Verbalize understanding
--- NOTE | 2023-11-11 16:08 | HP.SPREEV_ITS ---
Visit History Visit Info Date of Eval: 05/10/23 Visit: 1 Patient's Approved Number of Visits: 10 Insurance Date Limit: 05/26/24 [employer] Farmworker: MARY ANNE Gomez Attending Doctor: Referring Doctor: Reason for Referral: R CRANIOPLASTY/STROKE RX HERE Previous speech therapy: Yes Results: Rehab D/C Summary from 05/03/23: Excellent participation in treatment w/strong motivation to improve. Pt met all established goals w/ cueing. The patient continues to demonstrate deficits in attention, memory, executive functions and L neglect, although markedly improved, and will benefit from continued ST following discharge. Other Relevant Medical History/Diagnoses/Surgery: REBEKA AKERS is a 67 year old female who was recently discharged from [facility] on 05/03/23 following rehab for a right cranioplasty. In November 2022, skull cap was removed d/t infection following initial surgery in June 2022. Trialed new infusions of antibiotics. 04/03/23 right hemisphere skull cap replaced with a polymer cap. Left neglect is getting better since the skull cap was replaced per Pt. Rebeka reports having trouble getting herself organized, dates, telling time, memory, and navigating her phone. Her sister completes their finances. She has switched pharmacy to [facility] so medications come prepackaged by date, time, and dosage -- Rebeka reports her still is the one in charge of providing her the medicine. She currently just started keeping a hard calendar but is having a hard time filling it out. Rebeka recently stated that she has started participated in counseling. Smoking Status: Never smoker Diagnosis Diagnosis: Moderate Cognitive Disorder Pain Is pain an issue with your current prescribed condition?: No Personal Preferred language: Guatemalan Patient Allergies Allergies Allergies: Allergies latex Allergy (Verified 09/15/23 13:54) Rash naproxen Allergy (Verified 09/15/23 13:54) Rash Wwgcpci-BMP-GvS Reductase Inhibitor (Ddsnxxk-Ynu-Chf Reductase Inhibitor) Allergy (Verified 09/15/23 13:54) MUSCLE ACHES Previous/Current Goals Goals 1-5 Previous Goal #1: Rebeka will complete complex problem solving, reasoning, and executive function tasks including but not limited to functional ADL (i.e., paying bills, meal planning, telling time, keeping a calendar) with 3 or less verbal, logical, or visual cues across 3 measured sessions. Goal 1 Status: PROGRESSING: Pt guessed the rule for card sorting during 3/4 opp independently. Pt attempting to create and sort a rule of her own with limited acc. Pt making a difficult rule sorting #2-6 and was having trouble adhering to it. Previous Goal #2: Rebeka will complete basic to mod complex immediate, short- term, and working memory tasks with with 3 or less verbal, visual, or logical cues across 3 measured opportunities. Goal 2 Status: PROGRESSING: Rebeka completed memory task via creating a sentence to remember 3-4 words. Pt commented how she creates sentences with extra words that make remembering list difficult. She completed this task with 80% accuracy independently. Rebeka completed a following written direction task, she completed the task the task with 60% accuracy provided 3 visual/verbal cues. Previous Goal #3: Rebeka will complete basic sustained, alternating, and divided attention tasks with use of scanning compensatory techniques to address left neglect with needing less than 3 verbal cues to attend to left side per activity across 3 measured opportunities. Goal 3 Status: PROGRESSING: Rebeka read word lists and neglected the left column in 2/3 opportunities provided no visual/verbal cues. Reviewed Rebeka's tasks that were hard for her and why. Did a trail making task where she was tasked with alternating between numbers and letters. She completed task with 20% acc independently. Rebeka benefited from max verbal and visual cues to finish this task. Will continue with tasks like this. Previous Goal #4: . Objective Cog/Ling/Com Test Administered Jsvuptxib-Wkzbapxmxf-Mpcfquqydawjl Assessment Administered: Yes Joqldtmzp-Aenowytpeg-Mcmupkxhoavyl Assessment: Cognitive ? Linguistic skills were evaluated using patient/family interview, skilled observation and informal evaluation through tasks completed by the patient. Recall Repeating Words: Rebeka completed category inclusion task where she was given a list of 4 words and asked which ones went together with Pt completing with 88% acc independently. Pt benefiting from repeating the words back to ST prior to answering the questions. Rebeka completed category exclusion task where she was given a list of 5 words and asked which words do not belong with 33% acc. Rebeka having difficulty with repeating all 5 words back which affected her acc on the questions. Education provided re: linking the words together with a short story - Pt receptive to trialing. Medication Correctly stating instructions of medications: Mild Completing medications independently: Moderate Numerical Skills Determining Change: Rebeka completes math word problems such as (you are buying $13.45 of groceries, how much change would you receive back from a $20 bill?) with between 10-40% acc independently and benefits from mod-max verbal and logical cues to improve to 80-100%. Telling Time: Rebeka nikki a clock and set the hands to five after 11 with an oblong oval shape for the big sandy, placing 11 and 10 in the one and two place, and placing a 1 and 2 in the eleven and ten place, with only one hand. Numerical Work Problems: Rebeka has difficulty with basic math word problem for third grade level time word problems (e.g., if you leave the house at 10:30 and arrive at your destination at 11:[address]?). Organization Identifying which does not belong: Moderate Problem Solving Simple: Mild Complex: Moderate Judgement & Reasoning Judgement/Reasoning: Mild and Moderate Deductive Reasoning Deductive Reasoning: Moderate Cognitive Linguistic Supervision/Saftey Awareness of deficits: Moderate Being left home alone: Mild Managing medications: Mild Managing finances: Moderate CLQT CLQT CLQT Administered: Yes CLQT: Cognitive Linguistic Quick Test (CLQT) is a criterion - referenced assessment designed for adults between the ages of 18 and 89 with known or suspected neurological dysfuntions. The CLQT is to assess strength and weaknesses in five cognitive domains. Severity ratings are within normal limits, mild, moderate, severe deficits. The subtests are as follows: Date: 11/11/23 Attention Attention: Mild Memory Memory: WNL Executive Functions Executive Functions: Severe Language Language: WNL Visuospatial Skills Visuospatial Skills: Mild Composite Severity Rating Composite Severity Rating: Mild Clock Drawing Severity Rating Clock Drawing Severity Rating: WNL CLQT Comments Cognitive Domain Scores: -: 10/25/23 ? Personal Facts (memory and language ability): 01/01 (MEETS CRITERION CUT OFF) ? Symbol Cancellation (nonlinguistic task of visual attention and perception, integrity of the upper/lower quadrants of the left/right visual yung): 04/07 (MEETS CRITERION CUT OFF). ? Confrontation Naming (aphasia, perseveration, verbosity): 03/05 (MEETS CRITERION CUT OFF) ? Clock Drawing (screening of all cognitive domains): 05/08 (MEETS CRITERION CUT OFF) ? Story Retelling (memory and comprehension, arousal, attention, storage capacity, narrative skills): 03/05 (MEETS CRITERION CUT OFF) ? Symbol Trails (nonlinguistic task to assess planning, self-monitoring, working memory, and visual attention, and impulsivity): 06/05 (DOES NOT MEETS CRITERION CUT OFF -- While completing this task, Pt demonstrated difficulty alternating sizes and following the trail. Pt showing no awareness of errors, therefore there was no self correction) ? Generative Naming (word retrieval skills, perseveration): 09/02 (DOES NOT MEETS CRITERION CUT OFF) ? Design Memory (nonlinguistic task to assess visual discrimination & analysis, attention, and visual memory, impulsivity, perseveration): 10/30 (MEETS CRITERION CUT OFF) ? Mazes (planning, mental flexibility, self-monitoring, visual discrimination, and impulsivity): 09/01 (DOES NOT MEETS CRITERION CUT OFF -- During completion of both mazes, Pt demonstrated significant difficulty with planning ahead to see where the path blocks would be and was not able to back track and find a new path showing reduced mental flexibility.) ? Design Generation (nonlinguistic task of creativity and mental flexibility): 08/06 (DOES NOT MEETS CRITERION CUT OFF) Severity Rating: -: 10/25/23 Scores Domain Scores: Attention = 153/215 (MILD, but improved from evaluation); Memory = 180/185 (WNL, improved drastically from evaluation); Executive Functioning = 12/40 (SEVERE); Language = 32/37 (WNL); Visuospatial Skills = 63/105 (MILD); C lock Drawing = 12/ (WNL). 05/10/23 Scores Domain Scores: Attention = 139/215 (MILD); Memory = 152/185 (MILD); Executive Functioning = 9/40 (SEVERE); Language = 29/37 (WNL); Visuospatial Skills = 50/105 (MODERATE); Clock Drawing = 13/13 (WNL). Overall, Pt scoring with a mild cognitive deficit, however Pt demonstrating more severe cognitive deficits with executive functioning and visuospatial skills. Reference: Neuro-QoL instrument In past 7 days I had to read something several times to understand it: Rarely (once) My thinking was slow: Sometimes (2-3 times) I had to work really hard to pay attention or i would make a mistake: Sometimes (2-3 times) I had trouble concentrating: Sometimes (2-3 times) How much DIFFICULTY do you currently reading & following complex instructions (e.g. directions for new medication: A little planning for & keeping appts that are not part of weekly routine: A little managing your time to do most of your daily activities: None learning new tasks or instructions: A little Neuro-QOL Score Raw Score: 30 T - Score: 44.9 Radiation Oncology Patient Plan Plan Plan: Will recommend Pt to continue with 1-2x weekly outpatient speech therapy to address mod-severe cognitive impairment characterized by deficits in immediate and short-term memory, executive functioning, problem solving/reasoning, and cognitive flexibility. Pt would continue to benefit from training in compensatory strategies for recall as well as cognitive training to improve cognitive functioning. Without skilled ST services, the Pt is at risk for decreased independence and safety with completing daily living tasks. Recommendations Treatment Warranted: Yes Treatment Warranted: Cognition Progress Prognosis: Good Frequency Frequency: 1-2x /Week Duration: 3 Months Goals that are Established Determination:: Goals will be added/modified as deemed necessary and appropriate. Therapy will be discontinued when results of re-evaluation indicate therapy is no longer needed or lack of progress has been documented. Goal #1-5 Goal #1: Rebeka will complete complex problem solving, reasoning, and executive function tasks including but not limited to functional ADL (i.e., paying bills, meal planning, telling time, keeping a calendar) with 3 or less verbal, logical, or visual cues across 3 measured sessions. Goal #2: Rebeka will complete basic to mod complex immediate, short-term, and working memory tasks with with 3 or less verbal, visual, or logical cues across 3 measured opportunities. Goal #3: Rebeka will complete basic sustained, alternating, and divided attention tasks with use of scanning compensatory techniques to address left neglect with needing less than 3 verbal cues to attend to left side per activity across 3 measured opportunities. Goal #4: . Education Patient has Indicated that the Following Identified Educational Needs: None The Patient has indicated that they have no educational or learning abilities that may effect their care.: Yes Patient Instruction Patient Education: Diagnosis, Treatment Plan and Goals Person Taught: Patient and Family Teaching Method: Discussion and Demonstration Response to teaching: Return demonstration and Verbalize understanding
== END 2023-11-11 19:00 | disposition home or self-care (01) ==
LOC: SP 15:30
PROVIDERS: PCP Internal Medicine; Referring Provider Family Medicine Geriatric Medicine; Visit Provider Family Medicine Geriatric Medicine
DX: Z98.890 Other specified postprocedural states; I69.11 Cognitive deficits following nontraumatic intracerebral hemorrhage; I69.111 Memory deficit following nontraumatic intracerebral hemorrhage; I69.112 Visuospatial deficit and spatial neglect following nontraumatic intracerebral hemorrhage; I69.114 Frontal lobe and executive function deficit following nontraumatic intracerebral hemorrhage
CPT/HCPCS: 92507; 97110; 97112; 97129; 97130; 97140; 97162; 97164; 97166; 97530

== ENCOUNTER 2024-01-14 14:50 | Emergency (ER) | payer MEDICARE, SELFPAY ==
[2024-01-14 14:54] VITALS: BP 150/89; PULSE 63; RESP 16; TEMP 36.8; O2SAT 96; BMI 31.8
[2024-01-14 15:28] VITALS: BP 155/89; BP 156/89; BP 157/85; PULSE 61; PULSE 62
--- NOTE | 2024-01-14 15:28 | CT_ITS ---
INDICATION: Dizziness EXAMINATION: CT BRAIN - CT Head or Brain W/O Contrast Injection TECHNIQUE: Multiple axial images were obtained of the head without intravenous contrast. A radiation dose optimization technique was used for this scan. IV Contrast dosage and agent: None. COMPARISON: 11/15/2022 FINDINGS: BRAIN PARENCHYMA: No intra- or extra-axial hemorrhage. Surgical changes from right hemispheric cranioplasty following prior right frontoparietal craniectomy. Encephalomalacia in the right frontal and right parietal lobes likely related to prior surgeries. No acute territorial infarction. Posterior fossa structures are unremarkable. CSF SPACES: Ex vacuo hydrocephalus right occipital horn. Basal cisterns are patent. CALVARIUM, SKULL BASE, PARANASAL SINUSES AND MASTOID AIR CELLS: Clear. No discrete lytic or blastic abnormalities. CT/Brain/Head without Contrast IMPRESSION: Postsurgical changes as above. No acute intracranial findings. Electronically Signed: Shaquille Vallecillo MD at 16:48 EDT ,
--- NOTE | 2024-01-14 15:28 | EKG12_ITS ---
Test Reason : Blood Pressure : / mmHG Vent. Rate : 057 BPM Atrial Rate : 057 BPM P-R Int : 182 ms QRS Dur : 090 ms QT Int : 432 ms P-R-T Axes : 037 -02 077 degrees QTc Int : 420 ms Sinus bradycardia Otherwise normal ECG Confirmed by MAKENNA JIMENEZ, ANN ([id number]), newspaper or periodical editor DAHLIA TAN ([id number]) on 01/17/2024 6:37:05 AM Referred By: Confirmed By:JOESPH MENSAH MD
--- NOTE | 2024-01-14 15:30 | EX.ED.DYSGE1 ---
HPI History of Present Illness Chief Complaint: Dizziness Narrative Narrative: 58-year-old female past medical history of hyperlipidemia, diabetes, hypertension, previous stroke presents with dizziness that she has had since 9:00 this morning. This was approximately 6-1/2 hours ago. She states that when she got up and went to get out of bed, she felt very dizzy as if the room was spinning. She was only slightly nauseated but has not vomited. She felt off balance and fell backwards onto the bed. She denies any chest pain or shortness of breath. She states that she has been in bed all day because of the dizziness. She felt as if the bed was spinning, and is if she was in the movie [employer] where things were spinning around. She denies any paresthesias, she may have a slight headache, but cannot really describe what makes her dizziness better or worse. Send necessarily worse with movement of her head or standing. [facility] Medical History Hemorrhagic stroke Sleep apnea History of hemorrhagic cerebrovascular accident (CVA) without residual deficits Heme positive stool Hearing loss Chronic back pain Diabetes mellitus, type 2 Hyperlipidemia Hypertension Obstructive sleep apnea History of ectopic Anxiety Stroke/cerebrovascular accident Abdominal adhesions Home Medications ?Medication ?Instructions ?Recorded ?Last Taken ?Type acidophilus 25 million 1 tab PO BID Supplement #60 tabs 12/18/22 Unknown Rx cell-pectin, citrus 100 mg tablet carvedilol 6.25 mg tablet (Coreg) 6.25 mg PO BID BP #60 tabs 12/18/22 Unknown Rx duloxetine 20 mg capsule,delayed 40 mg (2 x 20 mg) PO DAILY Mood 12/18/22 04/15/23 Rx release #60 caps empagliflozin 10 mg tablet 10 mg PO DAILY@0800 dm #30 tabs 12/18/22 Unknown Rx (Jardiance) levetiracetam 500 mg tablet 750 mg (1.5 x 500 mg) PO BID 12/18/22 Unknown Rx Seizures #90 tabs lisinopril 20 mg tablet 20 mg PO DAILY BP #30 tabs 12/18/22 Unknown Rx magnesium chloride 64 mg 128 mg (2 x 64 mg) PO DAILY 12/18/22 Unknown Rx (magnesium chloride) vitamin #60 tabs tablet,delayed release (Mag 64) pantoprazole 40 mg tablet,delayed 40 mg PO DAILY gerd #30 tabs 12/18/22 Unknown Rx release potassium chloride 20 mEq 20 meq PO DAILY supp #30 tabs 12/18/22 Unknown Rx tablet,extended release sennosides 8.6 mg-docusate sodium 2 tab PO BID Stool softner #120 12/18/22 Unknown Rx 50 mg tablet (Stool tabs Softener-Stimulant Laxative) cholecalciferol (vitamin D3) 50 50 mcg PO WE vitamin 04/15/23 Unknown History mcg (2,000 unit) tablet trazodone 100 mg tablet 50 mg PO QHS Sleep 04/15/23 Unknown History rosuvastatin 20 mg tablet (Crestor) 20 mg PO QHS Cholestrol #30 tabs 05/03/23 Unknown Rx aspirin 81 mg tablet,delayed 81 mg PO DAILY 09/15/23 Unknown History release (Adult Aspirin Regimen) ferrous sulfate 325 mg (65 mg 325 mg PO DAILY 09/15/23 Unknown History iron) tablet (Feosol) metformin 500 mg tablet,extended 250 mg PO BID 09/15/23 Unknown History release 24 hr meclizine 25 mg tablet 25 mg PO 4X/DAY PRN PRN Dizziness 01/14/24 Unknown Rx #20 tabs Allergy/AdvReac Type Severity Reaction Status Date / Time latex Allergy Rash Verified 01/14/24 14:57 naproxen Allergy Rash Verified 01/14/24 14:57 Nyceiqf-XZR-QfQ Reductase Allergy MUSCLE Verified 01/14/24 14:57 Inhibitor (Guevhtp-Wje-Ulx ACHES Reductase Inhibitor) Family History Other CVA (cerebral vascular accident) Diabetes Surgical History History of cranioplasty Hx of craniotomy History of vein stripping History of bunionectomy Previous back surgery History of open heart surgery Social History household members: spouse housing: other details: One-story house with 2 steps to enter the house Smoking Status: Never smoker alcohol intake: never substance use type: does not use ROS ROS ED ROS Narrative Constitutional: No fever, no chills. HEENT: No sore throat. No neck pain. No loss of vision. No rhinorrhea. Cardiovascular: No chest pain. No palpitations. No pedal edema. Respiratory: No cough, no shortness of breath. Abdominal: No abdominal pain. Mild nausea. No vomiting. Genitourinary: No dysuria. No hematuria. Musculoskeletal: No myalgias. No arthralgias. Neurologic: Slight headache. Positive dizziness. No lightheadedness. No paresthesias. NIH stroke scale is 0. Skin: No rash. No change in color. Psychiatric: No depression. No anxiety. EXAM Physical Exam Const Vital Signs: 01/14/24 14:54 01/14/24 15:50 01/14/24 16:00 Temperature 98.2 F Temperature Source Temporal Pulse Rate 63 65 67 Respiratory Rate 16 16 18 Blood Pressure 150/89 H 146/86 H 146/86 H Blood Pressure Mean 109 106 106 Pulse Ox 96 95 94 Oxygen Delivery Method Room Air Room Air Room Air 01/14/24 17:00 Temperature Temperature Source Pulse Rate 61 Respiratory Rate 20 H Blood Pressure 157/85 H Blood Pressure Mean 109 Pulse Ox 95 Oxygen Delivery Method Room Air MDM MDM MDM Narrative Medical decision making narrative: Patient had been evaluated by ED physician in triage and stroke team had not been initiated. I agree with this as I feel it is probably more from peripheral vertigo than a central process. Her NIH stroke scale is 0. Additionally, she is outside the window for any TNK as her symptoms have been ongoing for at least 6-1/2 hours. Comprehensive workup was pursued. 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 They state that she has had 3 brain surgeries. While I think that this is more likely orthostatic hypotension versus peripheral vertigo or possible intravascular volume depletion, I do feel that CT of the brain is indicated given her history. I have low suspicion for ACS that she is not having chest pain, but I feel that the single troponin is indicated. EKG was obtained and interpreted by myself independently as sinus bradycardia at 57 bpm without ectopy or acute ST changes. No STEMI. I reviewed her laboratory work and she has normal white count of 5.1, hemoglobin normal at 13.5, platelet count normal at 176. Electrolyte panel is significant for chloride of 113 which I think is nonspecific, normal BUN of 12 and normal creatinine 0.59. Glucose is elevated at 126 so I doubt hypoglycemia. High-sensitivity troponin is 4. Once again I do not feel she requires serial enzymes as this has been ongoing since the morning. I reviewed the radiology report of the CT of the brain which shows postsurgical changes but no acute process. Repeat examination after meclizine at approximately 1700 shows her improved. She states she was able to get up off the cot by herself and transfer herself over to the CT scanner. As I feel this is more of a peripheral vertigo than a central process, I feel she can be discharged with a prescription for meclizine to take up to 4 times a day. She feels improved and is agreeable to discharge. Return instructions to the emergency department were reviewed. Disposition is discharged home in stable condition. History & Record Review Discussion w/independent historian: Patient and Family Additional record(s) reviewed:: Prior labs Lab Data Attestation: I reviewed the patient's lab results. Labs: Laboratory Results - last 24 hr 01/14/24 15:35 WBC 5.1 RBC 4.48 Hgb 13.5 Hct 41.6 MCV 92.9 MCH 30.1 MCHC 32.5 RDW Std Deviation 46.3 H RDW Coeff of Carmelo 13.8 Plt Count 176 MPV 10.2 Immature Gran % (Auto) 0.000 Neut % (Auto) 46.0 L Lymph % (Auto) 41.9 H [place] % (Auto) 9.1 Eos % (Auto) 2.2 Baso % (Auto) 0.8 Absolute Neuts (auto) 2.3 Absolute Lymphs (auto) 2.13 Nucleated RBC % 0 Sodium 143 Potassium 3.7 Chloride 113 H Carbon Dioxide 27.0 Anion Gap 3 L BUN 12 Creatinine 0.59 Estim Creat Clear Calc 67.16 Est GFR (MDRD) Af Amer 129 Est GFR (MDRD) Non-Af 107 BUN/Creatinine Ratio 20.2 H Glucose 126 H Calcium 9.2 Total Bilirubin 0.70 AST 21 ALT 31 Alkaline Phosphatase 66 Troponin I High Sens 4 Total Protein 7.0 Albumin 3.4 Globulin 3.6 Albumin/Globulin Ratio 0.9 Radiography Diagnostic Testing: Clinical Impression(s) from Imaging Studies Brain CT 01/14/24 15:28 IMPRESSION: Postsurgical changes as above. No acute intracranial findings. Electronically Signed: Shaquille Vallecillo MD at 16:48 EDT , Discharge Plan Triage Chief Complaint: Dizziness ED Provider: Barrie Green Dx/Rx/DC Orders Clinical Impression: Vertigo Instructions: ED Vertigo, Unspecified Prescriptions: New meclizine 25 mg tablet 25 mg PO 4X/DAY PRN PRN (Reason: Dizziness) Qty: 20 0RF No Action lisinopril 20 mg Tablet 20 mg PO DAILY Qty: 30 0RF duloxetine 20 mg Capsule,Delayed Release(Dr/Ec) 40 mg PO DAILY Qty: 60 0RF levetiracetam 500 mg Tablet 750 mg PO BID Qty: 90 0RF sennosides-docusate sodium [Stool Softener-Stimulant Laxat] 8.6-50 mg Tablet 2 tab PO BID Qty: 120 0RF acidophilus-pectin, citrus 25 million cell -100 mg Tablet 1 tab PO BID Qty: 60 0RF carvedilol [Coreg] 6.25 mg Tablet 6.25 mg PO BID Qty: 60 0RF pantoprazole 40 mg tablet,delayed release (DR/EC) 40 mg PO DAILY Qty: 30 0RF magnesium chloride [Mag 64] 64 mg tablet,delayed release (DR/EC) 128 mg PO DAILY Qty: 60 0RF potassium chloride 20 mEq tablet extended release 20 meq PO DAILY Qty: 30 0RF Jardiance 10 mg tablet 10 mg PO DAILY@0800 Qty: 30 0RF trazodone 100 mg Tablet 50 mg PO QHS cholecalciferol (vitamin D3) 50 mcg (2,000 unit) Tablet 50 mcg PO WE rosuvastatin [Crestor] 20 MG tablet 20 mg PO QHS Qty: 30 0RF ferrous sulfate [Feosol] 325 mg (65 mg iron) tablet 325 mg PO DAILY metformin 500 mg tablet extended release 24 hr 250 mg PO BID aspirin [Adult Aspirin Regimen] 81 mg tablet,delayed release (DR/EC) 81 mg PO DAILY Primary Care Provider: Flaquita Fink Referrals: Flaquita Fink MD [Primary Care Provider] - 3-5 Days Activity Restrictions/Additional Instructions: Return with increased dizziness, new or worsening symptoms. Print Language: Finnish Disposition Disposition: Home, Self Care
[2024-01-14] MEDS: 0.9% Normal Saline (1000mL) 1,000 ML 999 ML IV (15:34)
[2024-01-14] MEDS: Meclizine HCl 25 MG Tablet PO (15:42)
[2024-01-14 15:46] LABS: Absolute Lymphocyte Count 2.13 X10^3/uL (0.83-4.51); Absolute Neutrophil Count 2.3 X10^3/uL (2.0-7.7); Basophil# 0.04 X10^3/uL; Basophil% 0.8 % (0-1); Eosinophil# 0.11 X10^3/uL; Eosinophils% 2.2 % (0-5); Hematocrit 41.6 % (37-47); Hemoglobin 13.5 g/dL (12.0-15.0); Lymphocyte # 2.13 X10^3/ul (0.83-4.51); Lymphocyte % 41.9 % (19-41); Mean Corp Hgb Conc 32.5 g/dL (32-36); Mean Corpuscular Hgb 30.1 pg (27.0-32.0); Mean Corpuscular Volume 92.9 fL (81-99); Mean Platelet Vol. 10.2 fl (6.2-12.0); Monocyte# 0.46 X10^3/uL; Monocyte% 9.1 % (0-10); NRBC Flagged by Analyzer 0 % (0-5); Neutrophil # 2.34 X10^3/uL (2.7-7.7); Platelet Count 176 K/mm3 (150-450); RBC Distribution Width CV 13.8 % (11.6-14.6); RBC Distribution Width SD 46.3 fl (35.1-43.9); Red Blood Count 4.48 M/mm3 (4.2-5.4); White Blood Count 5.1 K/mm3 (4.4-11.0)
[2024-01-14 15:50] VITALS: BP 146/86; PULSE 65; RESP 16; O2SAT 95
[2024-01-14 16:00] VITALS: BP 146/86; PULSE 67; RESP 18; O2SAT 94
[2024-01-14 16:14] LABS: ALB/GLOB Ratio 0.9 RATIO (0.9-2.4); AST(SGOT) 21 U/L (15-37); Alanine Aminotransfer ALT/SGPT 31 U/L (13-56); Albumin, Serum 3.4 g/dL (3.2-5.0); Alkaline Phosphatase 66 U/L (45-117); Anion Gap 3 (5-15); BUN 12 mg/dL (7-18); BUN/Creat Ratio 20.2 RATIO (10-20); Calcium,Total 9.2 mg/dL (8.5-10.1); Chloride 113 mmol/L (98-107); Creatinine, Serum 0.59 mg/dL (0.55-1.02); EST Glomerular Filtration Rate 107 mL/min (>60); Est Glom Filt Rate - Afr Amer 129 mL/min (>60); Estimated Creatinine Clearance 67.16 ml/min; Globulin 3.6 g/dL (2.2-4.2); Glucose 126 mg/dL (74-106); Potassium 3.7 mmol/L (3.5-5.1); Sodium Level 143 mmol/L (136-145); Troponin-I HS 4 pg/mL (3.0-54.0)
[2024-01-14 17:00] VITALS: BP 157/85; PULSE 61; RESP 20; O2SAT 95
[2024-01-14 17:14] VITALS: BP 156/89; PULSE 62; RESP 15; TEMP 36.6; O2SAT 95
== END 2024-01-14 17:18 | disposition home or self-care (01) ==
PROVIDERS: Emergency Provider Emergency Medicine; PCP Internal Medicine; Visit Provider Emergency Medicine
DX: R42 Dizziness and giddiness (principal); E11.65 Type 2 diabetes mellitus with hyperglycemia; I10 Essential (primary) hypertension; E78.5 Hyperlipidemia, unspecified; Z86.73 Personal history of transient ischemic attack (TIA), and cerebral infarction without residual deficits
CPT/HCPCS: 70450; 80053; 84484; 85025; 93005; 99283

== ENCOUNTER 2024-05-06 11:30 | Outpatient (RCR) | payer MEDICARE, SELFPAY ==
--- NOTE | 2023-12-18 15:19 | HP.SPREEV_ITS ---
Visit History Visit Info Date of Eval: 05/10/23 Visit: 1 Patient's Approved Number of Visits: 10 Insurance Date Limit: 05/26/24 [employer] Librarian: KELLY Gomez Attending Doctor: RACH Referring Doctor: RACH Reason for Referral: CVA/RX HERE Smoking Status: Never smoker Diagnosis Diagnosis: Moderate Cognitive Disorder Pain Is pain an issue with your current prescribed condition?: No Personal Preferred language: Welsh Patient Allergies Allergies Allergies: Allergies latex Allergy (Verified 09/15/23 13:54) Rash naproxen Allergy (Verified 09/15/23 13:54) Rash Ymjkxcm-MCI-JkX Reductase Inhibitor (Seogqlt-Ryl-Flw Reductase Inhibitor) Allergy (Verified 09/15/23 13:54) MUSCLE ACHES Previous/Current Goals Goals 1-5 Previous Goal #1: Rebeka will complete complex problem solving, reasoning, and executive function tasks including but not limited to functional ADL (i.e., paying bills, meal planning, telling time, keeping a calendar) with 3 or less verbal, logical, or visual cues across 3 measured sessions Goal 1 Status: Goal in Progress: ST provided direct education on compensatory strategies for deduction puzzle re; creating a list of answer choices on a separate page, crossing off answers to help with process of elimination, and crossing off clues she used. Pt completed one deduction puzzle with 30% acc with min cues, increased to 70% acc with max cuing. Pt completed a second deduction puzzle with 40% acc with min cues, increased to 80% acc with max cueing. Pt noted that a lengthier breakdown of all possible choices listed for each category was more helpful to help with her process of elimination. Previous Goal #2: Rebeka will complete basic to mod complex immediate, short- term, and working memory tasks with with 3 or less verbal, visual, or logical cues across 3 measured opportunities Goal 2 Status: Goal in Progress: Rebeka completed a recalling exercise via memorizing shapes and transferring them to a blank box from memory. She was able to complete this task with 60% acc I, and increased to 80% after Pt I used a strategy to remember the order of shapes (re; creating mnemonic device using the first letter of the shapes). ST cued Pt to use strategies (re; saying shaped out loud, tracing shapes). Previous Goal #3: Rebeka will complete basic sustained, alternating, and divided attention tasks with use of scanning compensatory techniques to address left neglect with needing less than 3 verbal cues to attend to left side per activity across 3 measured opportunities. Goal 3 Status: Goal in Progress: Rebeka completed an alternating attention task via transferring events to a calendar. Rebeka was tasked with writing the type of event on the correct day in a month. For this task she completed it with 100% acc. I after double checking her work. Reference: Neuro-QoL instrument Radiation Oncology Patient Plan Plan Plan: Will recommend Pt to continue with 1-2x weekly outpatient speech therapy to address mod-severe cognitive impairment characterized by deficits in immediate and short-term memory, executive functioning, problem solving/reasoning, and cognitive flexibility. Pt would continue to benefit from training in compensatory strategies for recall as well as cognitive training to improve cognitive functioning. Without skilled ST services, the Pt is at risk for decreased independence and safety with completing daily living tasks. Recommendations Treatment Warranted: Yes Treatment Warranted: Cognition Progress Prognosis: Excellent Frequency Frequency: 1-2x /Week Duration: 3 Months Goals that are Established Determination:: Goals will be added/modified as deemed necessary and appropriate. Therapy will be discontinued when results of re-evaluation indicate therapy is no longer needed or lack of progress has been documented. Goal #1-5 Goal #1: Rebeka will complete complex problem solving, reasoning, and executive function tasks including but not limited to functional ADL (i.e., paying bills, meal planning, telling time, keeping a calendar) with 3 or less verbal, logical, or visual cues across 3 measured sessions Goal #2: Rebeka will complete basic to mod complex immediate, short-term, and working memory tasks with with 3 or less verbal, visual, or logical cues across 3 measured opportunities Goal #3: Rebeka will complete basic sustained, alternating, and divided attention tasks with use of scanning compensatory techniques to address left neglect with needing less than 3 verbal cues to attend to left side per activity across 3 measured opportunities.
--- NOTE | 2024-02-24 13:14 | HP.SP.REEV ---
Visit History Visit Info Date of Eval: 05/10/23 Visit: 1 Patient's Approved Number of Visits: 10 Insurance Date Limit: 05/26/24 Program Development Specialist: MARY ANNE Gomez Attending Doctor: RACH Referring Doctor: RACH Reason for Referral: CVA/RX HERE Smoking Status: Never smoker Diagnosis Diagnosis: Moderate Cognitive Disorder Pain Is pain an issue with your current prescribed condition?: No Personal Preferred language: [place] Patient Allergies Allergies Allergies: Allergies latex Allergy (Verified 01/14/24 14:57) Rash naproxen Allergy (Verified 01/14/24 14:57) Rash Duhbkdw-GGB-RbJ Reductase Inhibitor (Hkawoiz-Hnw-Wls Reductase Inhibitor) Allergy (Verified 01/14/24 14:57) MUSCLE ACHES Previous/Current Goals Goals 1-5 Previous Goal #1: Rebeka will complete complex problem solving, reasoning, and executive function tasks including but not limited to functional ADL (i.e., paying bills, meal planning, telling time, keeping a calendar) with 3 or less verbal, logical, or visual cues across 3 measured sessions Goal 1 Status: PROGRESSING: - Rebeka completed a calendar task where she was given [address] on the calendar in a random order. She independently arranged the tasks in order of date prior to filling out the calendar. She initially completed the task with 80% acc but through independent self checks, she improved to 100% acc independently. - Rebeka completing time word problems related to movie show times via answering six questions with 83% acc independently and benefited from max verbal and problem solving cues to improve to 100% -- this was on the one problem needing Rebeka to determine the time difference between shows. Previous Goal #2: Rebeka will complete basic to mod complex immediate, short-term, and working memory tasks with with 3 or less verbal, visual, or logical cues across 3 measured opportunities Goal 2 Status: GOAL MET: - Rebeka completed mental manipulation task via ranking 4 words in order of the target direction (e.g., smallest to largest, smoothest to roughest) with 70% acc (7/10) independently and benefited from 3 verbal and semantic cues to improve to 100%. - Pt completing a second type of mental manipulation via repeating 4 words back in the order they would occur with 50% acc (2/4) and benefited from mod verbal and semantic cues (2-3 cues). -Rebeka completed working memory task via creating categories from words presented orally to her. Out of the four words some may or may not go together in a category. She was presented four words at a time and had a total of 16 words to put into four categories. She completed the task with 75% acc independently with requesting visual supports. She benefited from min problem solving cues (1 or less) to improve to 100% acc. Previous Goal #3: Rebeka will complete basic sustained, alternating, and divided attention tasks with use of scanning compensatory techniques to address left neglect with needing less than 3 verbal cues to attend to left side per activity across 3 measured opportunities. Goal 3 Status: GOAL MET: - Rebeka completing 4 easy to easy/medium difficulty mazes with 5+ cues for each of the first two mazes and then only 2 cues for the second two mazes via implementing strategies discussed after the first two mazes. - Provided education on ways to decrease the amount of split attention as possible while driving re; no music, limit conversations & phone calls, stop the car if she needs to change directions, set up directions on apple car play prior to starting the drive. - Rebeka completed sustained and alternating attention task via card game Blink where she was tasked with matching number, shape, or color from cards from her hand to match the discard pile while only maintaining 3 cards in her hand. Across 4 of games, Pt having more than 3 cards in her hands across 10/11 measured opportunities despite mod verbal cues before games and during to focus on only having three. Pt with 1x independent self correction when playing a card incorrectly. Reference: Neuro-QoL instrument Radiation Oncology Patient Plan Plan Plan: Will recommend Pt to continue with 1-2x weekly outpatient speech therapy to address mod cognitive impairment characterized by deficits in immediate and short-term memory, executive functioning, problem solving/reasoning, and cognitive flexibility. Pt would continue to benefit from training in compensatory strategies for recall as well as cognitive training to improve cognitive functioning. Without skilled ST services, the Pt is at risk for decreased independence and safety with completing daily living tasks. Recommendations Treatment Warranted: Yes Treatment Warranted: Cognition Progress Prognosis: Excellent Frequency Frequency: Every Other Week Duration: 3 Months Goals that are Established Determination:: Goals will be added/modified as deemed necessary and appropriate. Therapy will be discontinued when results of re-evaluation indicate therapy is no longer needed or lack of progress has been documented. Goal #1-5 Goal #1: Rebeka will complete complex problem solving, reasoning, and executive function tasks including but not limited to functional ADL (i.e., paying bills, meal planning, telling time, keeping a calendar) with 3 or less verbal, logical, or visual cues across 3 measured sessions Goal #2: Rebeka will complete basic to mod complex immediate, short-term, and working memory tasks with with 1 or less verbal, visual, or logical cues across 3 measured opportunities Goal #3: Rebeka will complete basic sustained, alternating, and divided attention tasks with use of scanning compensatory techniques to address left neglect with needing less than 1 verbal cues to attend to left side per activity across 3 measured opportunities.
--- NOTE | 2024-02-24 15:10 | HP.PTEVAL_ITS ---
Patient's Visit Information Visit Information Visit Information: HARSHAL AKERS is a 68 year old F referred to Physical Therapy by ALFRED HOBBS with a diagnosis of vertigo. Date of Evaluation: 02/24/24 Physical Therapist: TYLER Paniagua Visit Plan Frequency: 1x/Week Duration: 4 Weeks Plan: 1x/ week for 4 weeks if needed for Eply, possible testing and treatment of balance if deficit present. Subjective Subjective: She woke up one morning and it has been about a month and she went to sit up and stood up and she could not get the top part of her body to do what it was supposed to and she fell in her bed. She tried to lay back into the bed and she felt like the bed was moving and she held onto the bed and in time it passed. She had a massive stroke in 2002 and right away she was afraid that she was having a stroke and the ER said it was vertigo. Current Sx: if she gets out of her chair there is a wall to the right and she will stand up but she will walk to go lean toward the wall and then she will get up and get up. She still has the spinning when she goes to lay flat and goes to her head is going to the R. Her spinning is less than a minute. When she goes to put her head under the water in standing BW she will get dizzy. Objective Objective: + R Hallpike for upward torsional nystagmus and dizziness that lasted approx 25 seconds. From the Hallpike position the Eply was performed. Retested the R Hallpike the second time and was negative for dizziness and nystagmus Pt felt off walking out but was able to walk out to her car and back to schedule and felt just off but not dizzy. Balance/Special Test Scores Dizziness Score: 50 Goals Goal 1:: I HEP Goal Time Frame: 4-6 Weeks Goal 2:: Abolish dizziness when goes to get into bed at night Goal Time Frame: 4-6 Weeks Goal 3:: Be able to look up to wash hair without getting dizzy Goal Time Frame: 4-6 Weeks Rehabilitation Potential Rehabilitation Potential: Good Anticipated Interventions Patient/Client Instruction: Educate patient on: Condition and Plan of Care For the Purpose of:: To decrease pain, To increase ROM, To improve nutrient delivery to tissue, To improve muscle performance and motor function, To improve ability to perform ADL's, To increase tolerance to activity/condition/position, To improve performance and independence with ADL's, To decrease level of super vision to perform tasks, To improve gait and locomotor functions and To improve health of tissue Therapeutic Exercise to Include: Strength training, Endurance training, Balance training, Flexibilty training, Gait and locomotor training and Neuromotor development For the Purpose of:: To improve gait and locomotor functions, To improve balance and To improve safety with gait Functional Training to Include: Gait training For the Purpose of:: To improve gait and locomotor functions and To improve safety with gait Manual Therapy Techniques to Include: Other For the Purpose of:: To improve gait and locomotor functions, To improve balance and To improve safety with gait Text: Thank you for the opportunity to evaluate your patient. For Medicare and Medicare HMO plans, please review the plan of care and approve it. It will need to be FAXED BACK to us at [phone] for Medicare purposes. For Medicare only, by signing this I certify the plan of care. Please let me know if there are questions or concerns regarding this plan of care. Physician Signature: Date:
--- NOTE | 2024-04-07 13:05 | HP.PTREVAL_ITS ---
Re-Evaluation Intro: SONA DUQUE, CNC MACHINE PROGRAMMER-C, It has been my pleasure to treat HARSHAL AKERS over the last 5 visits for vertigo. Please see the progress note below for an update on the physical therapy plan of care! Subjective Subjective: She is not having anymore room spinning dizziness when she goes to bed at night anymore. She notices unbalanced at night. She has to remember to get up slow. When she stands up she feels like she has to hold onto the wall with her first steps and then it passes after a few seconds and then she can walk. She has had no falls for awhile. When she goes to get out of bed she pushes up on her nightstand and has to take a few steps before she gets her balance again (may have to walk with her hand sliding along the bed). It passes quickly. She has had a really bad FRANKEL on the R side of her head the last few days but they are changing around her meds. She reports that she got these same FRANKEL before she was tapered off her meds, The FRANKEL starts in the evening and by the time she goes to bed the FRANKEL is strong. She will call her Dr and let him know. Objective Objective/Function: FGA: 9 CATSIB: 105/120 LE MMT: R hip flex 13.9 and L 12.9 R knee ext 11.7 and L 12.1 R knee flex 9.7 and L 7.1 Sit to stand: able to get up on first attempt without using her arms. Stairs: up and down recip with 1 hand rail Stepping over an object: she needed to use a handrail to step over the 6 inch block. Plan Plan Plan: Please use a gait belt at all times 2X/ week for 8 weeks for foam work with EO/ec AND HEAD MOVEMENTS, gait with head movements, stepping up onto and off a curb, stepping over a saúl/box, sit to stand to ensure not dizziness with sit to stands with HEP Balance/Gait/Functional tests Balance/Special Test Scores Functional Gait Assessment Score: 9 % Disability: 70.0000 CATSIB Score (Max score 120 seconds): 105 Dizziness Score: 56 Lower Extremity Functional Score: 41 Goals Goals Goal 1:: I HEP Goal Time Frame: 4-6 Weeks Goal Progress: Goal Met Goal 2:: Increase balance on foam (EC on foam was 15 seconds at eval). Goal Time Frame: 4-6 Weeks Goal Progress: Goal Met Goal 3:: Be able to look up to wash hair without getting dizzy Goal Time Frame: 4-6 Weeks Goal 4:: Be able to step up on a curb and over a block without LOB X 10 with SBA Goal Time Frame: 4-6 Weeks Goal 5:: Increase balance (score on FGA was 9 at re-eval) Goal Time Frame: 4-6 Weeks Goal 6:: Be able to walk with horizontal head turns without veering or LOB Goal Time Frame: 4-6 Weeks Anticipated Interventions Anticipated Interventions Patient/Client Instruction: Educate patient on: Condition and Plan of Care For the Purpose of:: To decrease pain, To increase ROM, To improve nutrient delivery to tissue, To improve muscle performance and motor function, To improve ability to perform ADL's, To increase tolerance to activity/condition/position, To improve performance and independence with ADL's, To decrease level of supervision to perform tasks, To improve gait and locomotor functions and To improve health of tissue Therapeutic Exercise to Include: Strength training, Endurance training, Balance training, Flexibilty training, Gait and locomotor training and Neuromotor development For the Purpose of:: To improve gait and locomotor functions, To improve balance and To improve safety with gait Functional Training to Include: Gait training For the Purpose of:: To improve gait and locomotor functions and To improve safety with gait Manual Therapy Techniques to Include: Other For the Purpose of:: To improve gait and locomotor functions, To improve balance and To improve safety with gait Re-Evaluation Ending Re-evaluation ending: Please do not hesitate to contact me at [phone] by phone or if you have questions or concerns regarding this new plan of care! Sincerely, Sveta Hicks, MPT
--- NOTE | 2024-05-06 11:28 | HP.PTDCSUM ---
Discharge Summary D/C summary: It has been my pleasure to treat HARSHAL AKERS referred by SONA DUQUE NP-C, with the diagnosis of vertigo for a total of 12 visit(s). Discharge Date: 05/06/24 Please see the following information for a summary of their discharge status. Subjective Subjective: Pt has had no dizziness. She is dizzy free. She is able to roll over in bed with no dizziness. She is able to step up onto a curb with no dizziness Pain B knee pain: Pain Intensity (Out of 10): 2 Overall Improvement % Improvement: 100 Objective Objective/Function: FGA 22 Pt is able to step up onto the curb X 10 with no railing and CGA with no LOB Goals Goal 1:: I HEP Goal Progress: Goal Met Goal 2:: Increase balance on foam (EC on foam was 15 seconds at eval). Goal Progress: Goal Met Goal 3:: Be able to look up to wash hair without getting dizzy Goal Progress: Goal Met Goal 4:: Be able to step up on a curb and over a block without LOB X 10 with SBA Goal Progress: Goal Met Goal 5:: Increase balance (score on FGA was 9 at re-eval) Goal Progress: Goal Met Goal 6:: Be able to walk with horizontal head turns without veering or LOB Goal Progress: Goal Met Plan Plan: Please use a gait belt at all times 2X/ week for 8 weeks for foam work with EO/ec AND HEAD MOVEMENTS, gait with head movements, stepping up onto and off a curb, stepping over a saúl/box, sit to stand to ensure not dizziness with sit to stands with HEP D/C Information Discharge Comments: DC PT d/c sentence: If there are questions or concerns regarding this patient's physical therapy, please feel free to call me at [phone]. Thank you for the referral of this patient. Sincerely, Sveta Hicks, MPT Balance/Gait/Functional tests Balance/Special Test Scores Functional Gait Assessment Score: 22 % Disability: 26.6700 CATSIB Score (Max score 120 seconds): 105 Dizziness Score: 6 Lower Extremity Functional Score: 63 Improvement % Improvement: 100
--- NOTE | 2024-05-06 12:51 | HP.SP.DC_ITS ---
ST Discharge Summary Discharged: Discharge: Pt was seen for initial speech/language/cognitive evaluation at [facility] on 05/13/23 s/p a cva. Pt attended 66 additional sessions following initial evaluation to target attention, left neglect, problem solving/reasoning, memory, executive functioning, and safety awareness. Following re-evaluation of Pt?s current level of cognitive function, and self-report report, Pt deemed appropriate for d/c from speech therapy at this time. Pt provided compensatory strategies to carry over at home. Pt discharged from speech therapy caseload on this date, 05/06/24. Thank you for allowing me to participate in the care of your Pt. Will reevaluate at Pt?s request following script from physician.
== END 2024-05-06 19:00 | disposition home or self-care (01) ==
LOC: SP 11:30
PROVIDERS: PCP Internal Medicine; Referring Provider Nurse Practitioner; Visit Provider Nurse Practitioner
DX: I69.11 Cognitive deficits following nontraumatic intracerebral hemorrhage (principal); I69.111 Memory deficit following nontraumatic intracerebral hemorrhage; I69.112 Visuospatial deficit and spatial neglect following nontraumatic intracerebral hemorrhage; I69.114 Frontal lobe and executive function deficit following nontraumatic intracerebral hemorrhage
CPT/HCPCS: 92507; 97110; 97129; 97130; 97161; 97530

== ENCOUNTER 2025-03-05 11:00 | Outpatient (RCR) | payer MEDICARE, SELFPAY ==
--- NOTE | 2024-08-05 16:18 | HP.SP.EVAL ---
Visit History Visit Info Date of Eval: 08/03/24 Visit: 1 Mica Paster: MARY ANNE Gomez Attending Doctor: RACH Referring Doctor: RACH Reason for Referral: HX OF CVA,MEMORY CONCERN/RX HERE Previous speech therapy: Yes Results: Initial evaluation = 08/17/2022 following initial CVA prior to cranioplasty surgery Evaluation following right cranioplasty and inpatient rehab = 05/10/2023 Discharge date following outpatient rehab = 05/06/2024 Other Relevant Medical History/Diagnoses/Surgery: REBEKA AKERS is a 68 year old female who attended a speech therapy evaluation at [facility]. She is familiar to this evaluating therapist who treated her last year. She was d/c at the end of April 2024 d/t stagnant progress. Rebeka returning d/t report of difficulty with her memory along with executive functioning. Pt reporting she understands she will not completely return to her PLOF but would like to work on refining some skills to help with being organized at home and in the community. Rebeka reporting that she had a driving assessment last Saturday with an occupational therapist in [place] and they approved her to drive independently. Smoking Status: Never smoker Diagnosis Diagnosis: Mild Cognitive Impairment Pain Is pain an issue with your current prescribed condition?: No Personal Preferred language: [place] Patient Allergies Allergies Allergies: Allergies latex Allergy (Verified 01/14/24 14:57) Rash naproxen Allergy (Verified 01/14/24 14:57) Rash Jjwweli-JDK-UlA Reductase Inhibitor (Cvuzqsb-Hll-Fyt Reductase Inhibitor) Allergy (Verified 01/14/24 14:57) MUSCLE ACHES [facility] Administered: Yes Picture recognition - Delayed recall scaled score: 11 Face recognition - Delayed recall scaled score: 8 Orientation and date scaled score: 9 Index Score Sum of scaled scores: 28 Additional Information Comment:: Due to time constraint of the session, only the 3 subtests were able to be administered. Will continue with testing in future tx sessions. Given Pt's hx and report of difficulties at home with managing calendar and planning and organizing tasks throughout the house, goals will be able to be determined at this time. Should testing reveal additional areas of need, will alter goals. Pt has also just started driving again, so plan to educate her on how finding activities to volunteer with or older adult activities to participate in throughout the week. Reference: Neuro-QoL instrument In past 7 days I had to read something several times to understand it: Sometimes (2-3 times) My thinking was slow: Sometimes (2-3 times) I had to work really hard to pay attention or i would make a mistake: Sometimes (2-3 times) I had trouble concentrating: Sometimes (2-3 times) How much DIFFICULTY do you currently reading & following complex instructions (e.g. directions for new medication: A little planning for & keeping appts that are not part of weekly routine: A little managing your time to do most of your daily activities: A little learning new tasks or instructions: A little Neuro-QOL Score Raw Score: 28 T - Score: 42.9 Radiation Oncology Patient Plan Plan Plan: Will recommend Pt for weekly outpatient speech therapy to address mod-severe cognitive impairment characterized by deficits in immediate and short-term memory, word retrieval, executive functioning, attention, problem solving/reasoning, and safety awareness. Pt would benefit from training in compensatory strategies for recall and word retrieval, as well as cognitive training to improve cognitive functioning. Without skilled ST services, the Pt is at risk for decreased independence completing daily living tasks. Recommendations Treatment Warranted: Yes Treatment Warranted: Cognition Progress Prognosis: Good Frequency Frequency: Every Other Week Duration: 3 Months Patient/Family Goal Patient/Family Goal: Find compensatory strategies that she can implement at home to feel more independent Goals that are Established Determination:: Goals will be added/modified as deemed necessary and appropriate. Therapy will be discontinued when results of re-evaluation indicate therapy is no longer needed or lack of progress has been documented. Goal #1-5 Goal #1: Caregiver will attend at least 3 treatment sessions to participate in education re: patient's diagnosis, expectations on return to prior level of function, and ways that he can assist at home. Goal #2: Rebeka will demonstrate understanding of how to find volunteer or community activities via answering WHO, WHAT, WHEN, WHERE, HOW questions after locating an opportunity with 80% acc given min verbal cues in 3/4 sessions. Goal #3: Rebeka will utilize the PQRST memory strategy (i.e., preview, question, read, state, and test) to retell or answer questions about a short story with 80% acc independently across 3 measured sessions. Goal #4: Rebeka will complete complex problem solving, reasoning, and executive function tasks including but not limited to functional iADLs (e.g., managing finances, safety awareness, paying bills, medication management, meal planning, using cellphone) with 80% acc given min verbal and logical cues during 2/3 sessions. Education Patient Instruction Patient Education: Diagnosis, Treatment Plan and Goals Person Taught: Patient Teaching Method: Discussion and Demonstration Response to teaching: Return Demonstration and Verbalize Understanding
--- NOTE | 2024-12-24 08:33 | HP.SP.REEV ---
Visit History Visit Info Date of Eval: 08/03/24 Today is Visit #: 1 Patient's Approved Number of Visits: 10 Insurance Date Limit: 05/26/25 Rehabilitation Services Manager: MARY ANNE Gomez Attending Doctor: RACH Referring Doctor: RACH Reason for Referral: HX OF CVA,MEMORY CONCERN/RX HERE Previous speech therapy: Yes Results: Initial evaluation = 08/17/2022 following initial CVA prior to cranioplasty surgery Evaluation following right cranioplasty and inpatient rehab = 05/10/2023 Discharge date following outpatient rehab = 05/06/2024 Other Relevant Medical History/Diagnoses/Surgery: REBEKA AKERS is a 68 year old female who attended a speech therapy evaluation at [facility]. She is familiar to this evaluating therapist who treated her last year. She was d/c at the end of April 2024 d/t stagnant progress. Rebeka returning d/t report of difficulty with her memory along with executive functioning. Pt reporting she understands she will not completely return to her PLOF but would like to work on refining some skills to help with being organized at home and in the community. Rebeka reporting that she had a driving assessment last Saturday with an occupational therapist in [place] and they approved her to drive independently. 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 deficit following nontraumatic intracerebral hemorrhage Pain Is pain an issue with your current prescribed condition?: No Personal Preferred language: [place]ive[place] Patient Allergies Allergies Allergies: Allergies latex Allergy (Verified 01/14/24 14:57) Rash naproxen Allergy (Verified 01/14/24 14:57) Rash Bomhihb-UQI-UkE Reductase Inhibitor (Yfiwhiy-Tcf-Tok Reductase Inhibitor) Allergy (Verified 01/14/24 14:57) MUSCLE ACHES Previous/Current Goals Goals 1-5 Previous Goal #1: Caregiver will attend at least 3 treatment sessions to participate in education re: patient's diagnosis, expectations on return to prior level of function, and ways that he can assist at home. Goal 1 Status: GOAL MET: Rebeka's attended over three treatment sessions to participate in education re: symptoms of patient's diagnosis and how to assist at home to support her recovery and activities of daily living. Previous Goal #2: Rebeka will demonstrate understanding of how to find volunteer or community activities via answering WHO, WHAT, WHEN, WHERE, HOW questions after locating an opportunity with 80% acc given min verbal cues in 3/4 sessions. Goal 2 Status: GOAL PROGRESSING: This goal was targeted only briefly d/t greater focus being on goals 1 and 4. Will continue with the goal. Previous Goal #3: Rebeka will utilize the PQRST memory strategy (i.e., preview, question, read, state, and test) to retell or answer questions about a short story with 80% acc independently across 3 measured sessions. Goal 3 Status: GOAL PROGRESSING: This goal was targeted only briefly d/t greater focus being on goals 1 and 4. Will continue with the goal. Previous Goal #4: Rebeka will complete complex problem solving, reasoning, and executive function tasks including but not limited to functional iADLs (e.g., managing finances, safety awareness, paying bills, medication management, meal planning, using cellphone) with 80% acc given min verbal and logical cues during 2/3 sessions. Goal 4 Status: GOAL PROGRESSING: Rebeka has been doing well with showing understanding of the Spoon Theory and how activities throughout the day can contribute to her cognitive fatigue. We have had many discussions about assigning 1, 2, 3, or 4 spoons to an activity based on complexity as well as ways to implement rest throughout the day to help her stay within 12 spoons for each day. Discussed that it would be the goal for her to tolerate more total spoons during the day but working within 12 right now will help her start to quantify the complexity of her tasks and correlate this to a level of fatigue. [facility] SEBASTOPOL Administered: Yes Picture recognition - Delayed recall scaled score: 11 Face recognition - Delayed recall scaled score: 8 Orientation and date scaled score: 9 Index Score Sum of scaled scores: 28 Additional Information Comment:: Due to time constraint of the session, only the 3 subtests were able to be administered. Will continue with testing in future tx sessions. Given Pt's hx and report of difficulties at home with managing calendar and planning and organizing tasks throughout the house, goals will be able to be determined at this time. Should testing reveal additional areas of need, will alter goals. Pt has also just started driving again, so plan to educate her on how finding activities to volunteer with or older adult activities to participate in throughout the week. Reference: Neuro-QoL instrument In past 7 days I had to read something several times to understand it: Sometimes (2-3 times) My thinking was slow: Sometimes (2-3 times) I had to work really hard to pay attention or i would make a mistake: Sometimes (2-3 times) I had trouble concentrating: Sometimes (2-3 times) How much DIFFICULTY do you currently reading & following complex instructions (e.g. directions for new medication: A little planning for & keeping appts that are not part of weekly routine: A little managing your time to do most of your daily activities: A little learning new tasks or instructions: A little Neuro-QOL Score Raw Score: 28 T - Score: 42.9 Radiation Oncology Patient Plan Plan Plan: Will recommend Pt for weekly outpatient speech therapy to address mild-mod cognitive impairment characterized by deficits in immediate and short-term memory, executive functioning, attention, problem solving/reasoning, and safety awareness. Pt would benefit from training in compensatory strategies for recall and word retrieval, as well as cognitive training to improve cognitive functioning. Without skilled ST services, the Pt is at risk for decreased independence completing daily living tasks. Recommendations Treatment Warranted: Yes Treatment Warranted: Cognition Progress Prognosis: Good Frequency Frequency: Every Other Week Duration: 3 Months Patient/Family Goal Patient/Family Goal: Find compensatory strategies that she can implement at home to feel more independent Goals that are Established Determination:: Goals will be added/modified as deemed necessary and appropriate. Therapy will be discontinued when results of re-evaluation indicate therapy is no longer needed or lack of progress has been documented. Goal #1-5 Goal #1: Rebeka will complete complex problem solving, reasoning, and executive function tasks including but not limited to functional iADLs (e.g., managing finances, safety awareness, paying bills, medication management, meal planning, using cellphone) with 80% acc given min verbal and logical cues during 2/3 sessions. Goal #2: Rebeka will demonstrate understanding of how to find volunteer or community activities via answering WHO, WHAT, WHEN, WHERE, HOW questions after locating an opportunity with 80% acc given min verbal cues in 3/4 sessions. Goal #3: Rebeka will utilize the PQRST memory strategy (i.e., preview, question, read, state, and test) to retell or answer questions about a short story with 80% acc independently across 3 measured sessions. Goal #4: . Education Patient Instruction Patient Education: Diagnosis, Treatment Plan and Goals Person Taught: Patient Teaching Method: Discussion and Demonstration Response to teaching: Return Demonstration and Verbalize Understanding
== END 2025-03-05 19:00 | disposition home or self-care (01) ==
LOC: SP 11:00
PROVIDERS: PCP Internal Medicine; Referring Provider Nurse Practitioner; Visit Provider Nurse Practitioner
DX: Z71.1 Person with feared health complaint in whom no diagnosis is made; I69.11 Cognitive deficits following nontraumatic intracerebral hemorrhage; I69.111 Memory deficit following nontraumatic intracerebral hemorrhage; I69.112 Visuospatial deficit and spatial neglect following nontraumatic intracerebral hemorrhage; I69.114 Frontal lobe and executive function deficit following nontraumatic intracerebral hemorrhage
CPT/HCPCS: 97129; 97130